=== PATIENT | female | born 1965 | race Caucasian/White ===

== ENCOUNTER 2017-10-30 08:24 | Day surgery (SDC) | payer OTHER ==
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
[~2017-10-30] VITALS: Ht 158.1 cm; Wt 88.5 kg
[2017-10-30] VITALS (8 sets, daily range): BP systolic 106–128; BP diastolic 58–86; PULSE 71–83; TEMP 36.6–37.2; O2SAT 91–98; Ht 158.1 cm; Wt 88.5 kg
[~2017-10-30 08:24] MED LIST: ADVIN50/60 INH; ALBINS/ INH; ALBU1AER9 INH; CITA20TA9 PO; CLC100X PO; CYCLOBENZAPINE PO; DIPH-437 PO; FAMO20TA11 PO; FOLI1TAB8 PO; GABA100C13 PO; GEMF600T PO; HYDR1CAP85 PO; HYDR1TAB2 PO; IBUP-1277 PO; LITH600C PO; MELA1CAP9 PO; MONT1TAB3 PO; MULTTAB58 PO; OXCA300T4 PO; OXGN; PANT1TAB3 PO; POLY335025 PO; PRAZ1CAP10 PO; PRLSR20 PO; RANI300T PO; TIOTCAP INH; TPM/50 PO; TRAZ-119 PO; ZINC1CAP PO
--- NOTE | 2017-10-30 09:20 | Pre Sedation Assessment ---
Pre Sedation Assessment General Date of Sedation: Oct 30, 2017. Review Cardiovascular: regular rate, rhythm, no edema, no gallop, no JVD, no murmur, normal peripheral pulses Lungs: chest non-tender, lungs clear, normal breath sounds, no respiratory distress, no accessory muscle use Pre-Sedation Airway Assessment Smoking Status: Never Smoker Hx of Sleep Apnea: No Hx of difficult intubation: No Short Thick Neck: Yes Thyro-mental Distance: < or =3 Finger Breadths Oral Cavity: WNL Mallampati Classification: Class II ASA Classification: Class II Procedure Planning Contraindications for Sedation: None Current Medications Reviewed: Yes Notes The planned sedation has been discussed with the patient. Informed Consent was obtained. I have identified the patient, determined the appropriateness of sedation and have assessed the patient immediately prior to the procedure. All medicine(s) and interventions are by my order.
--- NOTE | 2017-10-30 09:20 | History & Physical Bridge Note ---
H&P Re-Evaluation Bridge Note: I have examined the patient, reviewed the History & Physical and in the interval since the performance of the History & Physical I have noted the following changes of clinical significance: No changes noted
--- NOTE | 2017-10-30 11:03 | Bronchoscopy Procedure Note ---
Bronchoscopy Procedure Note Procedure: Bronchoscopy, conscious sedation, bronchial lavage right middle lobe Consent: Obtained through the patient placed into the chart Pre-procedural diagnosis: Chronic hypoxemia Post-procedural diagnosis: Chronic hypoxemia Start time: 1030 End time: 1045 Total time: 15 minutes Analgesia: 2% liquid lidocaine: Via nebulizer 4% gel lidocaine: Via right naris 2% liquid lidocaine: Via bronchoscopy Sedation: Versed IV: 4 mg Fentanyl IV: 75 g Procedure: The [employer] video bronchoscope was used for this procedure and passed down through the right naris Right naris: Nasal polyp Posterior naris/posterior oropharynx: Anatomically within normal limits Glottis: Anatomically within normal limits Vocal cords: Proper abduction and abduction, anatomically within normal limits Subglottis: Anatomically within normal limits Trachea: Approximately 6 cm below the true vocal cords there was pretracheal lymph fracture which showed no signs of malacia consistent with her previous tracheostomy Karolina: Anatomically within normal limits Right bronchial tree: Right mainstem bronchus: Anatomically within normal limits Right upper lobe: Anatomically within normal limits Bronchus intermedius: Anatomically within normal limits Right middle lobe: Anatomically within normal limits Right lower lobe: Anatomically within normal limits Findings: No significant findings noted Left bronchial tree: Left mainstem bronchus: Anatomically within normal limits Left upper lobe: Anatomically within normal limits Lingula: Anatomically within normal limits Left lower lobe: Anatomically within normal limits Findings: No significant findings noted Bronchial alveolar lavage: Right middle EBL: None Complications: Wheezing Follow-up: ASU
--- NOTE | 2017-10-30 11:04 | Post Sedation Assessment ---
Post Sedation Assessment General Date of Sedation Oct 30, 2017. Vital Signs: Vital Signs Past 12 Hours Date Time Temp Pulse Resp B/P (MAP) Pulse Ox O2 Delivery O2 Flow Rate FiO2 10/30/17 08:30 36.7 79 20 128/86 (100) 95 Nasal Cannula Post Procedure Recovery Score Activity: (2) Moves 4 extremities * Respiration: (2) Deep breath/cough Circulation: (2) +/-20% PreAnes Value Consciousness: (2) Fully Awake Oxygen Saturation: (1) O2 needed for >90% Post Anesthesia Score: 9 Discharge Sedation Level of Care: Fast Track Phase II Post Sedation Plan On clinical assessment, the patient appears to have tolerated the sedation without complications. Patient is recovering as anticipated. Patient will continue to be monitored by nursing and may be discharged when sedation discharge criteria are met per below protocol. Upon Completions of procedure and additional 15 minutes continue every 5 minute vital signs and the P.A.R. score; then discharge to a Phase I or Fast Track to Phase II per the following guidelines: * Discharge Patient to appropriate Phase II area if PAR is 8 or greater or return to pre- procedure baseline. The post - procedure orders will be as directed. * If PAR score is less than 8 or not return to pre-procedure baseline then patient will follow Phase I monitoring till PAR is reached for Phase II. The Phase I may be done in procedure room or may call to secure a Phase I area. * If naloxone or flumazenil are used for reversal, hold in Phase I for an additional 60 -120 minutes before discharge to Phase II. Please call the Sedation Physician to re-evaluate and complete post-note for discharge to Phase II area. Do NOT discharge from procedure sedation or Phase 1 until post- sedation evaluation note is complete by procedure /sedation MD Sedation Discharge Instructions to be given to the patient at discharge to home.
[2017-10-30] MEDS ORDERED: LIDOCAINE HCL 2% LOCAL 50ML VIAL INSTIL ONE (11:05)
[2017-10-30] MEDS ORDERED: LIDOCAINE VISCOUS 2% 100ML TOP ONE (11:05)
[2017-10-30] MEDS ORDERED: FENTANYL CITRATE INJ 50 MCG/1 ML 2 ML VIAL IV ONE (11:05)
[2017-10-30] MEDS ORDERED: MIDAZOLAM HCL 5 MG/ML 1 ML VIAL IV ONE (11:05)
[2017-10-30] MEDS ORDERED: LIDOCAINE 4% INH SOLN 4 ML BTL TOP ONE (11:05)
--- NOTE | 2017-10-30 11:05 | Discharge Instructions ---
Discharge Instructions Date of Service Oct 30, 2017. Admission Reason for Admission: Asthma, Copd, Pulmonary Fibrosis Discharge Discharge Diagnosis / Problem: Asthma with chronic hypoxemia Discharge Goals Goal(s): Diagnostic testing Activity Recommendations Activity Limitations: resume your previous activity . Instructions / Follow-Up Instructions / Follow-Up Patient is to follow-up with the [facility] division Current Hospital Diet Patient's current hospital diet: Discharge Diet Recommended Diet: Regular Diet Procedures Procedures Performed: bronchoscopy, conscious sedation, bronchial lavage Pending Studies Studies pending at discharge: no Medical Emergencies . Who to Call and When: Medical Emergencies: If at any time you feel your situation is an emergency, please call 911 immediately. . Non-Emergent Contact Non-Emergency issues call your: Spoilage Worker . . "Provider Documentation" section prepared by Jonathan Rocha. . VTE Core Measure Inpt VTE Proph given/why not?: Treatment not indicated
[2017-10-30] MEDS ORDERED: ALBUT/IPRATROP 3MG/0.5MG NEB 3 ML VIAL INH ONE (11:09)
== END 2017-10-30 14:00 | disposition home or self-care (01) ==
LOC: C.ACU 08:24
PROVIDERS: ATTEND Internal Medicine Critical Care Medicine
DX: R09.02 Hypoxemia (principal); Z99.81 Dependence on supplemental oxygen; J44.9 Chronic obstructive pulmonary disease, unspecified; J45.909 Unspecified asthma, uncomplicated; G61.0 Guillain-Barre syndrome; Z86.718 Personal history of other venous thrombosis and embolism; Z87.898 Personal history of other specified conditions; Z79.899 Other long term (current) drug therapy; Z98.890 Other specified postprocedural states; Z88.1 Allergy status to other antibiotic agents; Z88.7 Allergy status to serum and vaccine; Z81.8 Family history of other mental and behavioral disorders; Z82.49 Family history of ischemic heart disease and other diseases of the circulatory system

== ENCOUNTER 2019-10-10 22:15 | Observation (INO) ==
[2019-10-10] MEDS ORDERED: SODIUM CHLORIDE 0.9% 1000ML 1,000 ML IV ONE (22:29)
[2019-10-10] MEDS ORDERED: methylPREDNISolone 125 MG/2 ML VIAL IV STA (22:29)
[2019-10-10] MEDS ORDERED: ALBUT/IPRATROP 3MG/0.5MG NEB 3 ML VIAL NEB ONE (22:29)
--- NOTE | 2019-10-10 22:43 | XRay Report ---
XR chest 1V portable CLINICAL HISTORY: Chest Pain pain COMPARISON STUDY: 05/06/2014 FINDINGS: Mild cardiac enlargement. Prominent pulmonary vasculature. Diaphragms are smooth. IMPRESSION: Congestive heart failure ACT 112: Negative or not required by law. The above report was generated using voice recognition software. It may contain grammatical, syntax or spelling errors. Electronically signed by: Bebeto Layton M.D. 10/10/2019 10:41 PM
[2019-10-10 22:58] LABS: Basophils # (auto) 0.02 K/uL (0-0.2); Basophils % (auto) 0.2 %; Eosinophils # (auto) 0.01 K/uL (0-0.5); Eosinophils % (auto) 0.1 %; Hematocrit (blood only) 48.7 % (37-47); Hemoglobin 17.3 g/dL (12.0-16.0); Immature Granulocytes # (auto) 0.03 K/uL (0.00-0.02); Immature Granulocytes % (auto) 0.3 %; Lymphocytes # (auto) 4.58 K/uL (1.2-3.4); Lymphocytes % (auto) 40.9 %; Mean Corpuscular Hemoglobin 33.6 pg (25-34); Mean Corpuscular Hgb Conc 35.5 g/dL (32-36); Mean Corpuscular Volume 94.6 fL (80-100); Mean Platelet Volume 10.9 fL (7.4-10.4); Monocytes # (auto) 0.89 K/uL (0.11-0.59); Monocytes % (auto) 7.9 %; Neutrophils # (auto) 5.68 K/uL (1.4-6.5); Neutrophils % (auto) 50.6 %; Platelet Count 225 K/uL (130-400); RDW Coefficient of Variation 12.8 % (11.5-14.5); RDW Standard Deviation 43.9 fL (36.4-46.3); Red Blood Count 5.15 M/uL (4.2-5.4); White Blood Count 11.21 K/uL (4.8-10.8)
[2019-10-10 22:59] LABS: Base Excess VBG 3.2 mEq/L; HCO3 VBG 29 mmol/L; PCO2 VBG 48 mmHg (38-50); PO2 VBG 29 mmHg
[2019-10-10 23:08] LABS: Oxygen Saturation VBG < 60.0 %
[2019-10-10 23:16] LABS: Alanine Aminotransferase 73 U/L (12-78); Albumin Level 4.2 gm/dl (3.4-5.0); Blood Urea Nitrogen 22 mg/dl (7-18); Calcium 9.2 mg/dl (8.5-10.1); Carbon Dioxide 25 mmol/L (21-32); Chloride 102 mmol/L (98-107); Est GFR (Non-African American) 72.5; Glucose 182 mg/dl (70-99); Lipase 96 U/L (73-393); Sodium 138 mmol/L (136-145)
[2019-10-10 23:22] LABS: Albumin Globulin Ratio 1.1 (0.9-2); Alkaline Phosphatase 107 U/L (45-117); Bilirubin,Total 0.5 mg/dl (0.2-1); Globulin 3.7 gm/dl (2.5-4.0); Phosphorus 2.4 mg/dl (2.5-4.9); Potassium 3.8 mmol/L (3.5-5.1); Total Protein 7.9 gm/dl (6.4-8.2); Troponin I < 0.015 ng/ml (0-0.045)
[2019-10-10 23:25] LABS: Aspartate Aminotransferase 26 U/L (15-37); Magnesium 2.5 mg/dl (1.8-2.4)
[2019-10-10 23:28] LABS: Influenza A virus by PCR Neg for Influ A (Neg); Influenza B virus by PCR Neg for Influ B (Neg)
[2019-10-10] MEDS ORDERED: AZITHROMYCIN 500 MG in DEXTROSE 5% 250 ML IV ONE (23:49)
[2019-10-10] MEDS ORDERED: cefTRIAXone SODIUM 2,000 MG/70 ML BAG IV STA (23:49)
[2019-10-11 00:29] LABS: NT Pro B Type Natriuretic Pept 53 pg/ml (0-900)
--- NOTE | 2019-10-11 01:40 | Emergency Department Note ---
Entered by Alpesh Constantino acting as a scribe for History of Present Illness General Chief complaint: Shortness of Breath/Dyspnea Stated complaint: SOB Time Seen by Provider: 10/10/19 22:26 Source: patient History of Present Illness Onset (ago): day(s) 5 Location: chest Pain Consistency: + other (worsening) Maximum Pain Intensity: 4 Quality: + other (SOB) Associated symptoms: + other (Positive for CP, a cough, nausea, and vomiting. Negative for fever and diarrhea.) The patient is a 54 year old female who presents to the emergency department with complaints of worsening SOB beginning five days ago. The patient states that she has a history of asthma and COPD. She notes that she has been SOB for the last five days, but she reports that her SOB has been worsening. She also complains of CP, a cough, nausea, and vomiting, but she denies any fever and d iarrhea. The patient states that she wears 2L of oxygen at all times. She notes that she took a nebulizer treatment at home. She reports that she has been on Augmentin and Prednisone for the last two days. Home Medications Home Medications Medication Instructions Recorded Confirmed Type albuterol sulfate 2.5 mg INHALATION QID PRN 07/05/18 10/10/19 History fluticasone furoate-vilanterol 1 inh INHALATION DAILY 07/05/18 10/10/19 History [Breo Ellipta] gabapentin 300 mg PO BID 07/05/18 10/10/19 History melatonin 10 mg PO HS PRN 07/05/18 10/10/19 History pantoprazole [Protonix] 40 mg PO BID 07/05/18 10/10/19 History polyethylene glycol 3350 17 g PO DAILY 07/05/18 10/10/19 History albuterol sulfate 90 mcg/actuation See Rx Instructions .ROUTE 07/15/19 10/10/19 Rx aerosol inhaler .COMPLEX #54 gram losartan 100 mg tablet 100 mg PO DAILY #90 tab 07/29/19 10/10/19 Rx montelukast 10 mg tablet 10 mg PO DAILY #30 tab 08/03/19 10/10/19 Rx cyclobenzaprine 10 mg tablet 10 mg PO TID PRN #90 tab 08/22/19 10/10/19 Rx famotidine 20 mg tablet 20 mg PO DAILY #90 tab 08/23/19 10/10/19 Rx trazodone 100 mg tablet 200 mg PO HS #180 tab 08/23/19 10/10/19 Rx ropinirole 1 mg tablet 1 mg PO DAILY #60 tab 09/09/19 10/10/19 Rx hydrocodone 5 mg-acetaminophen 325 1 tab PO Q8H PRN #60 tab 09/21/19 10/10/19 Rx mg tablet multivitamin-ferrous 1 tab PO DAILY 09/21/19 10/10/19 History fumarate-folic acid 18 mg-400 mcg tablet psyllium husk 0.52 gram capsule 2.6 gm PO DAILY cap 09/21/19 10/10/19 History linaclotide 290 mcg capsule 290 mcg PO DAILY #30 cap 09/26/19 10/10/19 Rx diclofenac sodium 1 % topical gel 2 gm TOP QID #100 gm 09/28/19 10/10/19 Rx meloxicam 15 mg tablet 15 mg PO DAILY #30 tab 09/28/19 10/10/19 Rx prednisone 10 mg PO DIRECTED 10/10/19 10/10/19 History Allergies Allergy/AdvReac Type Severity Reaction Status Date / Time red dye Allergy Intermediate RED FOOD Verified 09/21/19 13:27 DYE CAUSES SEVERE ASTHMA ATTACK yellow dye Allergy Intermediate YELLOW Verified 09/21/19 13:27 FOOD DYE CAUSES SEVERE ASTHMA ATTACK diphtheria toxoid,fluid Allergy Mild Verified 09/21/19 13:27 tetanus toxoid, adsorbed Allergy Mild Verified 09/21/19 13:27 mold Allergy Unknown ASTHMA Verified 09/21/19 13:27 ATTACK Dust Allergy Unknown ASTHMA Uncoded 09/21/19 13:27 ATTACK Past Med/Surg History Medical History Aggressive behavior (Resolved) Alcohol intoxication (Resolved) Anxiety (Chronic) Asthma with exacerbation (Chronic) 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) Bronchitis (Resolved) Contusion of face (Resolved 04/27/11) COPD (chronic obstructive pulmonary disease) Depression (Chronic) Foot contusion (Resolved) Gastroenteritis (Resolved) Mood disorder (Chronic) Family History Other No significant family history Social History Preferred Language: Kiswahili Communication Ability: Effective 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 and A total of 10 systems reviewed and were otherwise negative Physical Exam Vital Signs Vital Signs - 24 hr 10/10/19 22:21 10/10/19 22:34 10/10/19 22:52 Temperature 36.8 C Temperature Source Oral Pulse Rate 128 H Pulse Rate [Bilateral Apical] 110 H Pulse Rate [Finger] 111 H Pulse Rhythm Regular Pulse Strength Normal Respiratory Rate 24 26 H Respiratory Effort / Characteristics Non-Labored Spontaneous Respiratory Depth Normal Respiratory Pattern Regular Blood Pressure 128/88 Blood Pressure [Right Arm] 139/91 Blood Pressure Mean 101 Blood Pressure Mean [Right Arm] 107 Blood Pressure Position Sitting Pulse Oximetry 93 100 Oxygen Delivery Method Nasal Cannula Nasal Cannula Nebulizer Oxygen Flow Rate 2 2 Sepsis Recent Fever Within 48 Hours No Sepsis Action Taken by Nursing No Action Required 10/10/19 23:29 10/11/19 00:28 Temperature Temperature Source Pulse Rate Pulse Rate [Bilateral Apical] 119 H 131 H Pulse Rate [Finger] 132 H Pulse Rhythm Pulse Strength Respiratory Rate 24 22 Respiratory Effort / Characteristics Respiratory Depth Respiratory Pattern Blood Pressure Blood Pressure [Right Arm] 145/94 H 111/72 Blood Pressure Mean Blood Pressure Mean [Right Arm] 111 85 Blood Pressure Position Pulse Oximetry 99 97 Oxygen Delivery Method Nebulizer Oxygen Flow Rate Sepsis Recent Fever Within 48 Hours Sepsis Action Taken by Nursing GENERAL: Awake, alert, ill-appearing, in moderate respiratory distress HENT: Normocephalic, atraumatic. Oropharynx with dry mucous membranes and otherwise unremarkable. EYES: Normal conjunctiva. Sclera non-icteric. NECK: Supple. No nuchal rigidity. FROM. No JVD. RESPIRATORY: Moderate respiratory distress, diffuse wheezes with prolonged expiratory phase. Accessory muscle use. CARDIAC: Tachycardic, normal rhythm. Extremities warm and well perfused. Pulses equal. ABDOMEN: Soft, non-distended. No tenderness to palpation. No rebound or guarding. No masses. RECTAL: Deferred. MUSCULOSKELETAL: Chest examination reveals no tenderness. The back is symmetrical on inspection without obvious abnormality. There is no CVA tenderness to palpation. No joint edema. LOWER EXTREMITIES: Calves are equal size bilaterally and non-tender. No edema. No discoloration. NEURO: Normal sensorium. No sensory or motor deficits noted. SKIN: No rash or jaundice noted. Course Course 2228: The patient was evaluated in room B12. A complete history and physical exam was performed. 0021: Upon reevaluation, the patient is stable. I discussed the findings and the treatment plan with the patient. She expresses agreement and understanding. I spoke with Dr. Ramirez of the [facility]. The patient will be evaluated for further management. 0050: I performed a bedside US on the patient. The US showed no pericardial effusion and no gross reduction in EF. Consultations Consultation #1: I reviewed the patient's case with Dr. Ramirez - Hospital[place], [facility]. He will evaluate the patient for further management. Time: 00:21 Administered Medications Albuterol (Duoneb) 12 ml NEB ONE ONE Stop: 10/10/19 22:30 Last Admin: 10/10/19 22:50 Dose: 12 ml Documented by: [id number] Albuterol (Duoneb) 3 ml NEB Q6R EN Stop: 11/10/19 02:06 Last Admin: 10/11/19 03:01 Dose: Not Given Documented by: [id number] Sodium Chloride (Nss 1000ml) 1,000 mls @ 999 mls/hr IV .Q1H1M ONE Stop: 10/10/19 23:29 Last Infusion: 10/11/19 00:16 Dose: 0 mls/hr Documented by: [id number] Admin: 10/10/19 22:46 Dose: 999 mls/hr Documented by: [id number] Ceftriaxone Sodium (Rocephin) 2,000 mg in 70 mls @ 140 mls/hr IV NOW STA Stop: 10/11/19 00:18 Last Infusion: 10/11/19 00:18 Dose: 0 mls/hr Documented by: [id number] Admin: 10/11/19 00:16 Dose: 140 mls/hr Documented by: [id number] Azithromycin 500 mg/ Dextrose 255 mls @ 125 mls/hr IV ONE ONE Stop: 10/11/19 01:51 Last Infusion: 10/11/19 02:43 Dose: 0 mls/hr Documented by: [id number] Admin: 10/11/19 00:26 Dose: 125 mls/hr Documented by: [id number] Methylprednisolone (Solumedrol) 125 mg IV NOW STA Stop: 10/10/19 22:30 Last Admin: 10/10/19 22:46 Dose: 125 mg Documented by: [id number] Morphine Sulfate (Morphine Sulfate) 2 mg IV Q3H PRN PRN Reason: Severe Pain Stop: 10/25/19 02:06 Last Admin: 10/11/19 03:01 Dose: 2 mg Documented by: [id number] Critical Care Time Critical Care Time: Yes Total Critical Care Time: 35 I have personally spent greater than 35 minutes of critical care time in the direct management of this patient. This includes bedside care, interpretation of diagnostic studies, and testing, discussion with consultants, patient, and family members, and other required patient management activities. This 35 minutes is in excess of all separately billable procedures. Medical Decision Making Differential Diagnosis Differential diagnosis: Etiologies such as infections, reactive airway disease, COPD, pneumonia, pleural effusion, pulmonary edema, ARDS, pneumothorax, CHF, cardiac ischemia, cardiac tamponade, dysrhythmia, anemia, pulmonary embolism, musculoskeletal, gastrointestinal process, as well as others were entertained. Medical Records Attestation: I reviewed the patient's medical records. Home Medications Current Medication List: was personally reviewed by me Laboratory Data Attestation: I reviewed the patient's lab results. Result diagrams: 10/10/19 22:44 10/10/19 22:44 Lab Results 10/10/19 10/10/19 10/10/19 Range/Units 22:40 22:44 22:44 WBC 11.21 H (4.8-10.8) K/uL RBC 5.15 (4.2-5.4) M/uL Hgb 17.3 H (12.0-16.0) g/dL Hct 48.7 H (37-47) % MCV 94.6 (80-100) fL MCH 33.6 (25-34) pg MCHC 35.5 (32-36) g/dL RDW Std Deviation 43.9 (36.4-46.3) fL RDW Coeff of Joyce 12.8 (11.5-14.5) % Plt Count 225 (130-400) K/uL MPV 10.9 H (7.4-10.4) fL Immature Gran % (Auto) 0.3 % Neut % (Auto) 50.6 % Lymph % (Auto) 40.9 % Elliott % (Auto) 7.9 % Eos % (Auto) 0.1 % Baso % (Auto) 0.2 % Immature Gran # (Auto) 0.03 H (0.00-0.02) K/uL Neut # (Auto) 5.68 (1.4-6.5) K/uL Lymph # (Auto) 4.58 H (1.2-3.4) K/uL Elliott # (Auto) 0.89 H (0.11-0.59) K/uL Eos # (Auto) 0.01 (0-0.5) K/uL Baso # (Auto) 0.02 (0-0.2) K/uL VBG pH (7.36-7.41) VBG pCO2 (38-50) mmHg VBG pO2 mmHg VBG HCO3 mmol/L VBG O2 Saturation % VBG Base Excess mEq/L Barometric Pressure mm/Hg Sodium 138 (136-145) mmol/L Potassium 3.8 (3.5-5.1) mmol/L Chloride 102 (98-107) mmol/L Carbon Dioxide 25 (21-32) mmol/L Anion Gap 11.0 (3-11) BUN 22 H (7-18) mg/dl Creatinine 0.90 (0.6-1.2) mg/dl Est Cr Clr Drug Dosing Not Reportable Est GFR ( Amer) 84.0 Est GFR (Non-Af Amer) 72.5 BUN/Creatinine Ratio 24.0 H (10-20) Glucose 182 H (70-99) mg/dl Lactate (0.4-2.0) mmol/L Calcium 9.2 (8.5-10.1) mg/dl Phosphorus 2.4 L (2.5-4.9) mg/dl Magnesium 2.5 H (1.8-2.4) mg/dl Total Bilirubin 0.5 (0.2-1) mg/dl AST 26 (15-37) U/L ALT 73 (12-78) U/L Alkaline Phosphatase 107 (45-117) U/L Troponin I < 0.015 (0-0.045) ng/ml NT-Pro-B Natriuret Pep 53 (0-900) pg/ml Total Protein 7.9 (6.4-8.2) gm/dl Albumin 4.2 (3.4-5.0) gm/dl Globulin 3.7 (2.5-4.0) gm/dl Albumin/Globulin Ratio 1.1 (0.9-2) Lipase 96 (73-393) U/L Influenza Type A (PCR) Neg for Influ A (Neg) Influenza Type B (PCR) Neg for Influ B (Neg) 10/10/19 10/10/19 Range/Units 22:50 23:59 WBC (4.8-10.8) K/uL RBC (4.2-5.4) M/uL Hgb (12.0-16.0) g/dL Hct (37-47) % MCV (80-100) fL MCH (25-34) pg MCHC (32-36) g/dL RDW Std Deviation (36.4-46.3) fL RDW Coeff of Joyce (11.5-14.5) % Plt Count (130-400) K/uL MPV (7.4-10.4) fL Immature Gran % (Auto) % Neut % (Auto) % Lymph % (Auto) % Elliott % (Auto) % Eos % (Auto) % Baso % (Auto) % Immature Gran # (Auto) (0.00-0.02) K/uL Neut # (Auto) (1.4-6.5) K/uL Lymph # (Auto) (1.2-3.4) K/uL Elliott # (Auto) (0.11-0.59) K/uL Eos # (Auto) (0-0.5) K/uL Baso # (Auto) (0-0.2) K/uL VBG pH 7.40 (7.36-7.41) VBG pCO2 48 (38-50) mmHg VBG pO2 29 mmHg VBG HCO3 29 mmol/L VBG O2 Saturation < 60.0 % VBG Base Excess 3.2 mEq/L Barometric Pressure 727.1 mm/Hg Sodium (136-145) mmol/L Potassium (3.5-5.1) mmol/L Chloride (98-107) mmol/L Carbon Dioxide (21-32) mmol/L Anion Gap (3-11) BUN (7-18) mg/dl Creatinine (0.6-1.2) mg/dl Est Cr Clr Drug Dosing Est GFR ( Amer) Est GFR (Non-Af Amer) BUN/Creatinine Ratio (10-20) Glucose (70-99) mg/dl Lactate 3.7 H* (0.4-2.0) mmol/L Calcium (8.5-10.1) mg/dl Phosphorus (2.5-4.9) mg/dl Magnesium (1.8-2.4) mg/dl Total Bilirubin (0.2-1) mg/dl AST (15-37) U/L ALT (12-78) U/L Alkaline Phosphatase (45-117) U/L Troponin I (0-0.045) ng/ml NT-Pro-B Natriuret Pep (0-900) pg/ml Total Protein (6.4-8.2) gm/dl Albumin (3.4-5.0) gm/dl Globulin (2.5-4.0) gm/dl Albumin/Globulin Ratio (0.9-2) Lipase (73-393) U/L Influenza Type A (PCR) (Neg) Influenza Type B (PCR) (Neg) Imaging Data Radiologist's Impression: Radiology results as stated below per my review and the radiologist's interpretation: XR chest 1V portable FINDINGS: Mild cardiac enlargement. Prominent pulmonary vasculature. Diaphragms are smooth. IMPRESSION: Congestive heart failure ACT 112: Negative or not required by law. The above report was generated using voice recognition software. It may contain grammatical, syntax or spelling errors. Electronically signed by: Bebeto Layton M.D. 10/10/2019 10:41 PM ECG Data Attestation: I personally reviewed and interpreted this ECG as follows: Indication: + SOB/dyspnea Rate (beats per minute): 111 Rhythm: + sinus tachycardia ECG ST segments: no ST depression and no ST elevation ECG Findings: no PACs and no PVCs Additional Comments: QTC 454, QRS 78. Blood Pressure Blood Pressure Findings: Elevated blood pressure Blood Pressure Disposition: further management by hospitalist MDM Narrative The patient is a pleasant 54-year-old woman with a past medical history of COPD on 2 L home O2 who presents emergency department with worsening cough congestion shortness of breath over the past 5 days treated outpatient with a course of Augmentin and prednisone but without any improvement per HPI. On arrival the patient is in moderate respiratory distress with increased work of breathing with accessory muscle use and only able to speak 1 or 2 words at a time between breaths. Patient reports she had been in this degree of distress approximately 5 hours prior to arrival. Patient treated immediately with hour-long continuous duoneb and solumedrol. EKG without overt acute ischemia. Chest x-ray with interpretation of prominent pulmonary vasculature however given the patient overall appears clinically dry in the setting of her recent URI symptoms suspici ous for component of multifocal pneumonia. WBC 11.2. H/H 17.3/48.7 suggestive of a component of hemoconcentration given increased from prior value. Platelets within normal limits. VBG unremarkable. Chemistry without acidosis. However lactate elevated at 3.7. BUN/creatinine> 20 consistent with the patient's clinically dry appearance. Troponin negative/undetectable. BNP within normal limits. Flu negative. Blood cultures were drawn and patient was treated with initial antibiotics of ceftriaxone and azithromycin. Upon completion of initial treatment, the patient's respiratory status was improved with resolution of her labored breathing and she was able to speak full sentences without difficulty. Limited bedside cardiac ultrasound was performed and demonstrated no pericardial effusion and no gross reduction in EF. Case was discussed with Dr. Ramirez, [facility] [place], who evaluate the patient for admission. Impression & Plan Acute and chronic respiratory failure with hypoxia, COPD exacerbation, Bilateral pneumonia, Elevated lactic acid level Discharge Plan Visit Data *Final* Discharge Date/Time: 10/11/19 01:28 Chief Complaint: Shortness of Breath/Dyspnea Stated Complaint: SOB ED Provider: Isai Sam Discharge Problem: Acute and chronic respiratory failure with hypoxia, COPD exacerbation, Bilateral pneumonia, Elevated lactic acid level Patient Disposition: Admitted As Inpatient Discharge Instructions Interventions: ED Discharge Assessment Last Done: 10/11/19 01:28 Discharge Problem: Bilateral pneumonia Qualifiers: Pneumonia type: due to unspecified organism Lung location: unspecified part of lung Qualified Code(s): J18.9 - Pneumonia, unspecified organism The scribe's documentation has been prepared under my direction and personally reviewed by me in its entirety. I confirm that the note above accurately reflects all work, treatment, procedures, and medical decision making performed by me.
[2019-10-11] MEDS ORDERED: HYDROCODONE/ACETAMOPHEN 5/325MG TAB PO PRN (02:07)
[2019-10-11] MEDS ORDERED: ALBUTEROL 0.083% NEBU SOLN 3 ML VIAL NEB PRN (02:07)
[2019-10-11] MEDS ORDERED: ONDANSETRON INJ 2 MG/ML 2 ML VIAL IV PRN (02:07)
[2019-10-11] MEDS ORDERED: ACETAMINOPHEN 325 MG TAB PO PRN (02:07)
[2019-10-11] MEDS: MoRPHine SULFATE 2 MG/ML CARP IV PRN ×2 (03:01→22:13)
[2019-10-11] MEDS: ALBUT/IPRATROP 3MG/0.5MG NEB 3 ML VIAL NEB SCH ×3 (03:01→13:15)
--- NOTE | 2019-10-11 05:14 | History & Physical Report ---
Date of Service October 11, 2019 Assessment & Plan (1) Acute and chronic respiratory failure with hypoxia: Obs tele Supplemental oxygen (2) COPD exacerbation: IV Rocephin and Zithromax to cover common offenders. IV Solumedrol 125mg given in ED. Continue with 40mg IV Q 6 hours. Duo nebs Q 6 hours while awake Albuterol nebs Q 4 hours prn. Continue Breo Ellipta (3) Asthma with exacerbation: See for COPD exac. Continue montelukast (4) Mood disorder: Continue Trazodone History of Present Illness 54 y/o female presented to the ED with a 5 day history of increasing SOB. She was placed on Augmentin and prednisone for the previous 2 days, but continued to worsen. She reports having COPD and Asthma. No F/C or diarrhea. + non- productive cough, chest pain with coughing, and N/V. She uses oxygen at 2L chronically. Primary Care Provider: Tyrell Mancini MD Allergies Allergy/AdvReac Type Severity Reaction Status Date / Time red dye Allergy Intermediate RED FOOD Verified 09/21/19 13:27 DYE CAUSES SEVERE ASTHMA ATTACK yellow dye Allergy Intermediate YELLOW Verified 09/21/19 13:27 FOOD DYE CAUSES SEVERE ASTHMA ATTACK diphtheria toxoid,fluid Allergy Mild Verified 09/21/19 13:27 tetanus toxoid, adsorbed Allergy Mild Verified 09/21/19 13:27 mold Allergy Unknown ASTHMA Verified 09/21/19 13:27 ATTACK Dust Allergy Unknown ASTHMA Uncoded 09/21/19 13:27 ATTACK Home Medications Home Medications Medication Instructions Recorded Confirmed Type albuterol sulfate 2.5 mg INHALATION QID PRN 07/05/18 10/10/19 History fluticasone furoate-vilanterol 1 inh INHALATION DAILY 07/05/18 10/10/19 History [Breo Ellipta] gabapentin 300 mg PO BID 07/05/18 10/10/19 History melatonin 10 mg PO HS PRN 07/05/18 10/10/19 History pantoprazole [Protonix] 40 mg PO BID 07/05/18 10/10/19 History polyethylene glycol 3350 17 g PO DAILY 07/05/18 10/10/19 History albuterol sulfate 90 mcg/actuation See Rx Instructions .ROUTE 07/15/19 10/10/19 Rx aerosol inhaler .COMPLEX #54 gram losartan 100 mg tablet 100 mg PO DAILY #90 tab 07/29/19 10/10/19 Rx montelukast 10 mg tablet 10 mg PO DAILY #30 tab 08/03/19 10/10/19 Rx cyclobenzaprine 10 mg tablet 10 mg PO TID PRN #90 tab 08/22/19 10/10/19 Rx famotidine 20 mg tablet 20 mg PO DAILY #90 tab 08/23/19 10/10/19 Rx trazodone 100 mg tablet 200 mg PO HS #180 tab 08/23/19 10/10/19 Rx ropinirole 1 mg tablet 1 mg PO DAILY #60 tab 09/09/19 10/10/19 Rx hydrocodone 5 mg-acetaminophen 325 1 tab PO Q8H PRN #60 tab 09/21/19 10/10/19 Rx mg tablet multivitamin-ferrous 1 tab PO DAILY 09/21/19 10/10/19 History fumarate-folic acid 18 mg-400 mcg tablet psyllium husk 0.52 gram capsule 2.6 gm PO DAILY cap 09/21/19 10/10/19 History linaclotide 290 mcg capsule 290 mcg PO DAILY #30 cap 09/26/19 10/10/19 Rx diclofenac sodium 1 % topical gel 2 gm TOP QID #100 gm 09/28/19 10/10/19 Rx meloxicam 15 mg tablet 15 mg PO DAILY #30 tab 09/28/19 10/10/19 Rx prednisone 10 mg PO DIRECTED 10/10/19 10/10/19 History Past Med/Surg History Medical History Aggressive behavior (Resolved) Alcohol intoxication (Resolved) Anxiety (Chronic) Asthma with exacerbation (Chronic) 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) Bronchitis (Resolved) Contusion of face (Resolved 04/27/11) COPD (chronic obstructive pulmonary disease) Depression (Chronic) Foot contusion (Resolved) Gastroenteritis (Resolved) Mood disorder (Chronic) Family History Other No significant family history Social History Preferred Language: Croatian Communication Ability: Effective Curtain Hemmer Automatic Required: No Beliefs That Will Affect Care: None marital status: Single Current Living Situation: Alone Other Information That Helps Us Care for You: No Feels Safe at Home: Yes Safety Concerns: Afraid for Self Smoking Status: Never smoker Do You Dip or Chew Tobacco: No ; Second Hand Exposure: No ; Tobacco Cessation Education Requested by Patient: No Hx Alcohol Use: Yes Alcohol type: wine Hx Substance Use: No Review of Systems Review of Systems: All systems reviewed & are unremarkable except as noted in HPI & below Physical Exam Physical Exam: General- adult female in mild distress from SOB. Head- atraumatic Eyes- PERRL, EOMI, anicteric ENT- oropharynx clear Neck- supple, no JVD, no adenopathy, no thyromegaly. Lungs- + inspiratory and expiratory wheezes b/l. Heart- regular rhythm; no murmur, no gallop, no rub appreciated Abdomen- normal bowel sounds, soft, nontender. 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 Skin- warm & dry Results & Data Vital Signs (Past 12 Hours) Vital Signs Temp Pulse Pulse Pulse Resp BP BP 10/11/19 04:44 116 H 16 10/11/19 01:50 36.9 C 132 H 20 129/81 10/11/19 01:22 127 H 22 113/72 10/11/19 00:28 131 H 132 H 22 111/72 10/10/19 23:29 119 H 24 145/94 H 10/10/19 22:52 110 H 111 H 26 H 139/91 10/10/19 22:21 36.8 C 128 H 24 128/88 Pulse Ox 10/11/19 04:44 97 10/11/19 01:50 94 10/11/19 01:22 94 10/11/19 00:28 97 10/10/19 23:29 99 10/10/19 22:52 100 10/10/19 22:21 93 Laboratory Results Laboratory Results WBC 11.21 K/uL (4.8-10.8) H 10/10/19 22:44 RBC 5.15 M/uL (4.2-5.4) 10/10/19 22:44 Hgb 17.3 g/dL (12.0-16.0) H 10/10/19 22:44 Hct 48.7 % (37-47) H 10/10/19 22:44 MCV 94.6 fL (80-100) 10/10/19 22:44 MCH 33.6 pg (25-34) 10/10/19 22:44 MCHC 35.5 g/dL (32-36) 10/10/19 22:44 RDW Std Deviation 43.9 fL (36.4-46.3) 10/10/19 22:44 RDW Coeff of Joyce 12.8 % (11.5-14.5) 10/10/19 22:44 Plt Count 225 K/uL (130-400) 10/10/19 22:44 MPV 10.9 fL (7.4-10.4) H 10/10/19 22:44 Immature Gran % (Auto) 0.3 % 10/10/19:44 Neut % (Auto) 50.6 % 10/10/19 22:44 Lymph % (Auto) 40.9 % 10/10/19:44 Schleicher % (Auto) 7.9 % 10/10/19:44 Eos % (Auto) 0.1 % 10/10/19:44 Baso % (Auto) 0.2 % 10/10/19:44 Immature Gran # (Auto) 0.03 K/uL (0.00-0.02) H 10/10/19 22:44 Neut # (Auto) 5.68 K/uL (1.4-6.5) 10/10/19:44 Lymph # (Auto) 4.58 K/uL (1.2-3.4) H 10/10/19 22:44 Schleicher # (Auto) 0.89 K/uL (0.11-0.59) H 10/10/19 22:44 Eos # (Auto) 0.01 K/uL (0-0.5) 10/10/19:44 Baso # (Auto) 0.02 K/uL (0-0.2) 10/10/19 22:44 VBG pH 7.40 (7.36-7.41) 10/10/19 22:50 VBG pCO2 48 mmHg (38-50) 10/10/19 22:50 VBG pO2 29 mmHg 10/10/19 22:50 VBG HCO3 29 mmol/L 10/10/19 22:50 VBG O2 Saturation < 60.0 % 10/10/19 22:50 VBG Base Excess 3.2 mEq/L 10/10/19 22:50 Barometric Pressure 727.1 mm/Hg 10/10/19 22:50 Sodium 138 mmol/L (136-145) 10/10/19 22:44 Potassium 3.8 mmol/L (3.5-5.1) 10/10/19 22:44 Chloride 102 mmol/L (98-107) 10/10/19 22:44 Carbon Dioxide 25 mmol/L (21-32) 10/10/19 22:44 Anion Gap 11.0 (3-11) 10/10/19 22:44 BUN 22 mg/dl (7-18) H 10/10/19 22:44 Creatinine 0.90 mg/dl (0.6-1.2) 10/10/19 22:44 Est Cr Clr Drug Dosing Not Reportable 10/10/19 22:44 Est GFR ( Amer) 84.0 10/10/19 22:44 Est GFR (Non-Af Amer) 72.5 10/10/19 22:44 BUN/Creatinine Ratio 24.0 (10-20) H 10/10/19 22:44 Glucose 182 mg/dl (70-99) H 10/10/19 22:44 Lactate 5.9 mmol/L (0.4-2.0) H* 10/11/19 02:09 Calcium 9.2 mg/dl (8.5-10.1) 10/10/19 22:44 Phosphorus 2.4 mg/dl (2.5-4.9) L 10/10/19 22:44 Magnesium 2.5 mg/dl (1.8-2.4) H 10/10/19 22:44 Total Bilirubin 0.5 mg/dl (0.2-1) 10/10/19 22:44 AST 26 U/L (15-37) 10/10/19 22:44 ALT 73 U/L (12-78) 10/10/19 22:44 Alkaline Phosphatase 107 U/L (45-117) 10/10/19 22:44 Troponin I < 0.015 ng/ml (0-0.045) 10/10/19 22:44 NT-Pro-B Natriuret Pep 53 pg/ml (0-900) 10/10/19 22:44 Total Protein 7.9 gm/dl (6.4-8.2) 10/10/19 22:44 Albumin 4.2 gm/dl (3.4-5.0) 10/10/19 22:44 Globulin 3.7 gm/dl (2.5-4.0) 10/10/19 22:44 Albumin/Globulin Ratio 1.1 (0.9-2) 10/10/19 22:44 Lipase 96 U/L (73-393) 10/10/19 22:44 Influenza Type A (PCR) Neg for Influ A (Neg) 10/10/19 22:40 Influenza Type B (PCR) Neg for Influ B (Neg) 10/10/19 22:40 Diagnostic Findings [place], [place] [phone] XRay Report Patient: JACOB PALM LAdmit Date: 10/10/19 MR#: [id number]: [id number] Acct ID:[id number]: Date: 1965[facility] Zip: [place] [address] Age: 54Location: ED Sex: F Room/Bed: Att Phy:Diagnosis: SOB Jamia Phy: Tyrell Mancini, MDService Date: 10/10/19 Fam Phy:Interpreting Phy: Bebeto Layton MD Admit Phy: Ordering Phy: Isai Sam M.D. cc: ~ XR chest 1V portable CLINICAL HISTORY: Chest Pain pain COMPARISON STUDY: 05/06/2014 FINDINGS: Mild cardiac enlargement. Prominent pulmonary vasculature. Diaphragms are smooth. IMPRESSION: Congestive heart failure ACT 112: Negative or not required by law. The above report was generated using voice recognition software. It may contain grammatical, syntax or spelling errors. Electronically signed by: Bebeto Layton M.D. 10/10/2019 10:41 PM Dictated: 10/10/192240 Transcribed: 10/10/192240 Code Status & VTE Plan VTE Prophylaxis Plan VTE Prophylaxis will be ordered: Yes PG Care Time/CCT Total # of Minutes Spent Total Time Spent: 60 Total Time Spent with Patient: Total time spent is greater than 50% in coordination of care (as documented) at patient's floor/unit and/or counseling patient: Coding Level of Care Code 60963 OBS Care - Level 3 Diagnoses Acute and chronic respiratory failure with hypoxia J96.21 COPD exacerbation J44.1 Asthma with exacerbation J45.901 Mood disorder F39
[2019-10-11] MEDS: methylPREDNISolone 40 MG in SYRINGE 0 ML IV SCH ×4 (05:38→22:10)
[2019-10-11 05:47] LABS: Hematocrit (blood only) 42.9 % (37-47); Mean Corpuscular Hemoglobin 33.4 pg (25-34); Mean Corpuscular Volume 95.5 fL (80-100); Mean Platelet Volume 10.6 fL (7.4-10.4); Platelet Count 183 K/uL (130-400); RDW Coefficient of Variation 12.9 % (11.5-14.5); RDW Standard Deviation 44.4 fL (36.4-46.3); Red Blood Count 4.49 M/uL (4.2-5.4); White Blood Count 5.41 K/uL (4.8-10.8)
[2019-10-11 06:24] LABS: BUN Creatinine Ratio 20.8 (10-20); Calcium 8.4 mg/dl (8.5-10.1); Creatinine Clr Calc Pharmacy 66.7 ml/min; Est GFR (African American) 80.8; Est GFR (Non-African American) 69.7; Potassium 4.5 mmol/L (3.5-5.1)
--- NOTE | 2019-10-11 06:52 | CT Scan Report ---
CT chest wo con CT DOSE: 460.59 mGy.cm CLINICAL HISTORY: 54 years-old Female with COPD exac, looking for pneumonia. Acute on chronic shortn ess of breath. Clinical concern for possible pneumonia TECHNIQUE: Multiaxial CT images of the chest were performed without contrast. A dose lowering techni que was utilized adhering to the principles of ALARA. COMPARISON: Chest radiograph 10/10/2019, a 01/12/2013, CTA of the chest 08/01/2012. FINDINGS: No focal thyroid nodule identified. There are a few prominent paratracheal and subcarinal lymph nodes measure up to 9 mm which are likely reactive. Heart is upper limits of normal in size. No pericardia l effusion. No thoracic aortic aneurysm. Main pulmonary artery is dilated measuring up to 3.1 cm whic h may reflect pulmonary arterial hypertension the appropriate clinical setting. There is no pneumotho rax or pleural effusion. Bilateral reticular opacities with intermixed groundglass densities are note d. Subpleural predominant cystic changes within an upper and mid lung zone predominant distribution m ost pronounced anteriorly are again noted with areas of adjacent traction bronchiectasis. Bilateral m osaic attenuation is suggestive of associated air trapping with atelectasis. No definite overt pulmon santiago edema or lobar airspace consolidation. Study is limited by respiratory motion artifact. Focal vanessa undglass nodular opacity of the basal right lower lobe measures 7 mm on image 142 of series 4. Centra l airways appear patent. Nonspecific mild distal esophageal wall thickening. Cholelithiasis. Soft tissues are unremarkable. Samm jovan appear intact. Avascular necrosis of the left humeral head without articular collapse. Probable b one island of the posterior left glenoid. There is an osseous are noted involving the posterolateral aspect of the left fifth and sixth ribs. IMPRESSION: 1. Respiratory motion artifact limits the study. 2. Chronic interstitial lung disease redemonstrated with findings suggestive of an NSIP pattern. Ther e are mixed bilateral groundglass opacities with mosaic attenuation suggestive of associated atelecta sis with air trapping. A superimposed atypical infectious or inflammatory pneumonitis could have a si milar appearance. 3. No pleural effusion. 4. Cholelithiasis. 5. Avascular necrosis without articular collapse of the left humeral head. 6. Possible 7 mm groundglass nodule of the basal right lower lobe. ACT 112: Negative or not required by law. Please refer to below summary of Fleischner criteria recommendations for follow-up of incidental CT n odules (Tiffanie Everett, Guidelines for management of small pulmonary nodules detected on CT scans: A sta tement from the Fleischner Society, Radiology 237: [phone].) Note: newly detected indeterminate nodule in persons 35 years of age or older. * Low risk patients: minimal or absent history of smoking and/or other known risk factors * high risk patients: history of smoking or of other known risk factors (e.g. first degree relative with lung cancer, or exposure to asbestos, radon, uranium) * if a nodule up to 8 mm is partly solid or is ground glass further follow-up is required after 24 m onths to exclude possible slow growing adenocarcinoma (GABBY) SUBSOLID NODULES Solitary pure ground-glass nodule * nodule size <6 mm - no CT follow-up required * nodule size >=6 mm - follow-up CT at 6-12 months, then every 2 years until 5 years The above report was generated using voice recognition software. It may contain grammatical, syntax o r spelling errors. Electronically signed by: Kev Fountain M.D. 10/11/2019 6:50 AM
[2019-10-11] MEDS ORDERED: GLUCOSE 40% GEL 15 GM TUBE PO PRN (08:07)
[2019-10-11] MEDS ORDERED: GLUCAGON FOR INJ 1 MG VIAL SQ PRN (08:07)
[2019-10-11] MEDS ORDERED: DEXTROSE 50% 50 ML SYRINGE IV PRN (08:07)
[2019-10-11] MEDS ORDERED: GLUCOSE 10 TABS/TUBE PO PRN (08:07)
[2019-10-11] MEDS ORDERED: CARBOHYDRATES FOR HYPOGLYCEMIA PO PRN (08:07)
[2019-10-11] MEDS ORDERED: PHARMACY GLYCEMIC MGMT CONSULT PRN (08:31)
[2019-10-11] MEDS ORDERED: INSULIN HUMAN NPH SC ONE (08:45)
[2019-10-11] MEDS ORDERED: MELOXICAM 7.5 MG TAB PO SCH (09:00)
[2019-10-11] MEDS: FLUTICASONE/VILANTEROL 100/25MCG 14 PUFFS/INHALER INH SCH (09:11)
[2019-10-11] MEDS: LOSARTAN POTASSIUM 50 MG TAB PO SCH (09:12)
[2019-10-11] MEDS: LINACLOTIDE 72 MCG CAPSULE PO SCH (09:12)
[2019-10-11] MEDS: ENOXAPARIN INJ 40 MG/0.4 ML SYR SQ SCH (09:12)
[2019-10-11] MEDS: PSYLLIUM 58.6% POWDER PACKET PO SCH (09:13)
[2019-10-11] MEDS: POLYETHYLENE (MIRALAX) 17 GM PACK PO SCH (09:13)
[2019-10-11] MEDS: GABAPENTIN 300 MG CAP PO SCH ×2 (09:14→21:13)
[2019-10-11] MEDS: FAMOTIDINE 20 MG TAB PO SCH (09:14)
[2019-10-11] MEDS: CEROVITE ADV FORMULA TAB PO SCH (09:14)
[2019-10-11] MEDS: PANTOprazole 40 MG TAB PO SCH ×2 (09:15→21:15)
[2019-10-11] MEDS: ROPINIROLE HCL 1 MG TABLET PO SCH (09:15)
[2019-10-11] MEDS: INSULIN ASPART 100 UNITS/ML 3 ML PEN SC SCH ×4 (09:54→21:11)
--- NOTE | 2019-10-11 10:26 | Pharmacy Report ---
Pharmacy Glycemic Short Note 2 - Date of Service October 11, 2019 - Glycemic Short BSG Results (Last 24 hours): 10/10/19 10/11/19 22:44 05:38 Glucose 182 H 289 H OUTPATIENT ANTIDIABETIC REGIMEN: * none * A1c = 6.9% (10/11/19) ASSESSMENT: * 54 yr old female with steroid induced hyperglycemia. No h/o of diabetes. A1c pending. * Patient admitted with increasing shortness of breath. Started on IV antibiotics and high dose IV steroids for COPD exacerbation. * Fasting BSG severely elevated at 289 mg/dL. * Will start weight based SQ basal and bolus insulin and titrate to goal. PLAN FOR INPATIENT GLYCEMIC CONTROL: * Basal insulin * NPH 15 units SQ this morning, then NPH per scale BIDM: * 7 units for BSG < 140 * 15 units for BSG 140-180 * 20 units for BSG > 180 * Bolus insulin * NovoLog per scale ACHS or Q6hrs while NPO * Goal Range: Low 120 mg/dL - High 150 mg/dL * Correction Factor: 20 mg/dL/unit * Nutritional / Prandial insulin per carb ratio of 1 unit per 7 grams CHO consumed * Add overnight checks at 00 and 04 PLAN FOR DISCHARGE: * pending
[2019-10-11] MEDS ORDERED: ALUMINUM/MAGNESIUM SUSP 30 ML UDC PO PRN (10:31)
[2019-10-11 12:41] LABS: Estimated Average Glucose 151 mg/dl; Hemoglobin A1C 6.9 % (4.5-5.6)
[2019-10-11] MEDS: SODIUM CHLORIDE 0.9% 1000ML 1,000 ML IV SCH (14:01)
--- NOTE | 2019-10-11 15:02 | Hospitalist Progress Note ---
Date of Service October 11, 2019 Assessment & Plan (1) Acute and chronic respiratory failure with hypoxia: - Possibly related to COPD/Pneumonia. - Currently requiring 2L via NC -- on home requirements. - Continue to monitor oxygen requirements, currently stable. (2) Sepsis: - HR 110-120's, lactic acidosis, leukocytosis noted on admission; no clear source identified. - BC pending; U/a pending collection. - Chest CT showed chronic interstitial markings, negative for acute abnormalities. - On IV fluids at 125 cc/hr. - Ceftriaxone/Azithromycin for empiric coverage. - Trend Lactic acid level q2hr until level is <2 (3) Lactic acidosis: - Lactic acid level continues to trend up -- unclear etiology, possibly underlying infection vs. dehydration vs. other. - Will continue to trend q2hr until level <2. - IV fluids at 125 cc/hr. (4) Tachycardia: - HR 110-120s -- upgrade to telemetry for further monitoring. - Limited 2D echo pending to evaluate for acute wall motion abnormalities, etc. - H/o atrioventricular stefany recurrent tachycardia s/p ablation in the past. - IV fluids for possible dehydration; also treating for acute infection as noted above. (5) Chest pain: - C/o sternal chest pain with radiation to her jaw/face. Pt. states this pain has been chronic for her, possibly related to GERD vs. gastric ulcer vs. cardiac source. - Initial trop was negative; will repeat troponin level. EKG was negative on admission. - On PPI BID and H2RA daily; consider GI consult for EGD to rule out gastric ulcer. - Low threshold for further cardiac work up if no improvement, including stress test. (6) COPD exacerbation: - Possible acute exacerbation of COPD. Completed 8-9 days of Augmentin at home along with 2-3 days Prednisone. - Continue Ceftriaxone and Azithromycin for empiric coverage. - On Solu-medrol 40 mg IV q6hr. - Ipratroprium q8hr scheduled (avoid albuterol due to tachycardia); continue home Breo-Ellipta. (7) Asthma with exacerbation: - Continue home inhalers. (8) Mood disorder: - Continue Trazodone as prescribed. (9) Chronic constipation: - Pt. reports she uses enemas at home. - CT A/P pending to evaluate for constipation vs. other acute abnormality. - Continue Linzess, Metamucil, Miralax as prescribed. (10) HTN (hypertension): - Continue Losartan as prescribed. - BP is currently stable. (11) GERD (gastroesophageal reflux disease): - PPI BID; Famotidine 20 mg daily. - Maalox prn. - C/o indigestion -- see chest pain diagnosis above. (12) Restless leg syndrome: - Continue Requip as prescribed. (13) Type II diabetes mellitus: - Hgb A1C is 6.9. - BG has been elevated during this admission -- steroid induced hyperglycemia. - Pharmacy consulted for glycemic management. (14) History of Guillain-Aitkin syndrome: - Admitted Jul 2009 to Sep 2009 then transferred to [facility] for severe illness; likely occurred during this time period. (15) History of pulmonary embolism: - In 2008; Lovenox ppx as inpatient. (16) History of ETOH abuse: - H/o ETOH intoxication. - Will order AWSS protocol and monitor for withdrawal. (17) DVT prophylaxis: - SCDs; Lovenox daily. Dispo: Upgrade to med/surg with tele for closer monitoring. Supervising Physician Co-Signing Physician Notes I seen and examined patient. I obtained a brief history and obtaind a physical examination. I reviewed above note by APC Katharine garcia. After reviewing above note, I will add the following. Patient continues to have lactic acidosis, beginning to doubt that this is type A lactic acidosis, and perhaps type B. Do not find any evidence of malignancy at this time. Will continue to trend. Patient also has evidence of pulmonary hypertension in the past. Patient may benefit from right heart cath, will consult cardio. In regards to her SOB, patient has had multiple episodes of SOB and this has been worked up with Bronchoscopy in the past. Patient should be re-evaluatd by pulmonary and perhaps either do a PFT, or rep eat bronchoscopy or both as outpatient. Patient will remain in the hospital. Subjective Pt. c/o 7/10 chest and epigastric pain this morning -- contributes pain to indigestion but is on PPI BID and H2RA daily. Denies cardiac history but does state pain radiates to her jaw/face. Has SOB, on home oxygen requirements. SOB is not increased above baseline at this point. Is coughing, has yellow sputum production. HR has been elevated, 110-120's but blood pressure currently stable. Lactic acid remains elevated despite treatment of COPD/pneumonia. Review of Systems Review of Systems: All systems reviewed & are unremarkable except as noted in HPI & below Constitutional: + fatigue, + weakness and + anorexia; no fever and no chills Respiratory: + cough, + dyspnea, + dyspnea on exertion and + sputum production; no wheezing Cardiovascular: + chest pain and + radiating jaw, neck or arm pain; no palpitations, no lightheadedness and no edema Gastrointestinal: + abdominal pain, + heartburn and + constipation; no nausea, no vomiting and no diarrhea/loose stools Genitourinary: no difficulty urinating Musculoskeletal: no back pain and no joint pain Integumentary: no non-healing lesions Physical Exam Physical Exam: General: Moderate distress HEENT: NC/AT; PERRLA with EOMI; [place] conjunctiva, MMM. No erythema of posterior pharynx Neck: Supple and nontender Cardiac: Tachycardic Lungs: on 2L via NC; CTA bilaterally Abdomen: Bowel normoactive X 4; Nontender to palpation Extremities: Warm. No edema present Neuro: No focal weakness Skin: No rash Results & Data Vital Signs (Past 12 Hours) Vital Signs Temp Pulse Resp BP Pulse Ox 10/11/19 08:25 36.9 C 10/11/19 07:36 112 H 22 121/73 95 10/11/19 07:09 116 H 16 97 10/11/19 04:44 116 H 16 97 Laboratory Results 10/11/19 10/11/19 10/11/19 Range/Units 14:19 13:58 12:33 WBC (4.8-10.8) K/uL RBC (4.2-5.4) M/uL Hgb (12.0-16.0) g/dL Hct (37-47) % MCV (80-100) fL MCH (25-34) pg MCHC (32-36) g/dL RDW Std Deviation (36.4-46.3) fL RDW Coeff of Joyce (11.5-14.5) % Plt Count (130-400) K/uL MPV (7.4-10.4) fL Immature Gran % (Auto) % Neut % (Auto) % Lymph % (Auto) % [place] % (Auto) % Eos % (Auto) % Baso % (Auto) % Immature Gran # (Auto) (0.00-0.02) K/uL Neut # (Auto) (1.4-6.5) K/uL Lymph # (Auto) (1.2-3.4) K/uL [place] # (Auto) (0.11-0.59) K/uL Eos # (Auto) (0-0.5) K/uL Baso # (Auto) (0-0.2) K/uL VBG pH (7.36-7.41) VBG pCO2 (38-50) mmHg VBG pO2 mmHg VBG HCO3 mmol/L VBG O2 Saturation % VBG Base Excess mEq/L Barometric Pressure mm/Hg Sodium (136-145) mmol/L Potassium (3.5-5.1) mmol/L Chloride (98-107) mmol/L Carbon Dioxide (21-32) mmol/L Anion Gap (3-11) BUN (7-18) mg/dl Creatinine (0.6-1.2) mg/dl Est Cr Clr Drug Dosing Est GFR ( Amer) Est GFR (Non-Af Amer) BUN/Creatinine Ratio (10-20) Glucose (70-99) mg/dl POC Glucose 231 H (70-99) mg/dl Estimat Average Glucose mg/dl Hemoglobin A1c (4.5-5.6) % Lactate (0.4-2.0) mmol/L Calcium (8.5-10.1) mg/dl Phosphorus (2.5-4.9) mg/dl Magnesium (1.8-2.4) mg/dl Total Bilirubin Pending (0.2-1) mg/dl Direct Bilirubin Pending AST Pending (15-37) U/L ALT Pending (12-78) U/L Alkaline Phosphatase Pending (45-117) U/L Total Creatine Kinase Pending Troponin I Pending (0-0.045) ng/ml NT-Pro-B Natriuret Pep (0-900) pg/ml Total Protein Pending (6.4-8.2) gm/dl Albumin Pending (3.4-5.0) gm/dl Globulin (2.5-4.0) gm/dl Albumin/Globulin Ratio (0.9-2) Lipase (73-393) U/L Specimen Hemolysis Nasal Screen MRSA (PCR) Pending Influenza Type A (PCR) (Neg) Influenza Type B (PCR) (Neg) 10/11/19 10/11/19 10/11/19 Range/Units 12:06 12:06 05:38 WBC (4.8-10.8) K/uL RBC (4.2-5.4) M/uL Hgb (12.0-16.0) g/dL Hct (37-47) % MCV (80-100) fL MCH (25-34) pg MCHC (32-36) g/dL RDW Std Deviation (36.4-46.3) fL RDW Coeff of Joyce (11.5-14.5) % Plt Count (130-400) K/uL MPV (7.4-10.4) fL Immature Gran % (Auto) % Neut % (Auto) % Lymph % (Auto) % [place] % (Auto) % Eos % (Auto) % Baso % (Auto) % Immature Gran # (Auto) (0.00-0.02) K/uL Neut # (Auto) (1.4-6.5) K/uL Lymph # (Auto) (1.2-3.4) K/uL [place] # (Auto) (0.11-0.59) K/uL Eos # (Auto) (0-0.5) K/uL Baso # (Auto) (0-0.2) K/uL VBG pH (7.36-7.41) VBG pCO2 (38-50) mmHg VBG pO2 mmHg VBG HCO3 mmol/L VBG O2 Saturation % VBG Base Excess mEq/L Barometric Pressure mm/Hg Sodium (136-145) mmol/L Potassium (3.5-5.1) mmol/L Chloride (98-107) mmol/L Carbon Dioxide (21-32) mmol/L Anion Gap (3-11) BUN (7-18) mg/dl Creatinine (0.6-1.2) mg/dl Est Cr Clr Drug Dosing Est GFR ( Amer) Est GFR (Non-Af Amer) BUN/Creatinine Ratio (10-20) Glucose (70-99) mg/dl POC Glucose (70-99) mg/dl Estimat Average Glucose 151 mg/dl Hemoglobin A1c 6.9 H (4.5-5.6) % Lactate 5.4 H* 4.3 H* (0.4-2.0) mmol/L Calcium (8.5-10.1) mg/dl Phosphorus (2.5-4.9) mg/dl Magnesium (1.8-2.4) mg/dl Total Bilirubin (0.2-1) mg/dl Direct Bilirubin AST (15-37) U/L ALT (12-78) U/L Alkaline Phosphatase (45-117) U/L Total Creatine Kinase Troponin I (0-0.045) ng/ml NT-Pro-B Natriuret Pep (0-900) pg/ml Total Protein (6.4-8.2) gm/dl Albumin (3.4-5.0) gm/dl Globulin (2.5-4.0) gm/dl Albumin/Globulin Ratio (0.9-2) Lipase (73-393) U/L Specimen Hemolysis Nasal Screen MRSA (PCR) Influenza Type A (PCR) (Neg) Influenza Type B (PCR) (Neg) 10/11/19 10/11/19 10/11/19 Range/Units 05:38 05:38 02:09 WBC 5.41 (4.8-10.8) K/uL RBC 4.49 (4.2-5.4) M/uL Hgb 15.0 (12.0-16.0) g/dL Hct 42.9 (37-47) % MCV 95.5 (80-100) fL MCH 33.4 (25-34) pg MCHC 35.0 (32-36) g/dL RDW Std Deviation 44.4 (36.4-46.3) fL RDW Coeff of Joyce 12.9 (11.5-14.5) % Plt Count 183 (130-400) K/uL MPV 10.6 H (7.4-10.4) fL Immature Gran % (Auto) % Neut % (Auto) % Lymph % (Auto) % [place] % (Auto) % Eos % (Auto) % Baso % (Auto) % Immature Gran # (Auto) (0.00-0.02) K/uL Neut # (Auto) (1.4-6.5) K/uL Lymph # (Auto) (1.2-3.4) K/uL [place] # (Auto) (0.11-0.59) K/uL Eos # (Auto) (0-0.5) K/uL Baso # (Auto) (0-0.2) K/uL VBG pH (7.36-7.41) VBG pCO2 (38-50) mmHg VBG pO2 mmHg VBG HCO3 mmol/L VBG O2 Saturation % VBG Base Excess mEq/L Barometric Pressure mm/Hg Sodium 136 (136-145) mmol/L Potassium 4.5 D (3.5-5.1) mmol/L Chloride 102 (98-107) mmol/L Carbon Dioxide 21 (21-32) mmol/L Anion Gap 13.0 H (3-11) BUN 19 H (7-18) mg/dl Creatinine 0.93 (0.6-1.2) mg/dl Est Cr Clr Drug Dosing 66.7 Est GFR ( Amer) 80.8 Est GFR (Non-Af Amer) 69.7 BUN/Creatinine Ratio 20.8 H (10-20) Glucose 289 H (70-99) mg/dl POC Glucose (70-99) mg/dl Estimat Average Glucose mg/dl Hemoglobin A1c (4.5-5.6) % Lactate 5.9 H* (0.4-2.0) mmol/L Calcium 8.4 L (8.5-10.1) mg/dl Phosphorus (2.5-4.9) mg/dl Magnesium (1.8-2.4) mg/dl Total Bilirubin (0.2-1) mg/dl Direct Bilirubin AST (15-37) U/L ALT (12-78) U/L Alkaline Phosphatase (45-117) U/L Total Creatine Kinase Troponin I (0-0.045) ng/ml NT-Pro-B Natriuret Pep (0-900) pg/ml Total Protein (6.4-8.2) gm/dl Albumin (3.4-5.0) gm/dl Globulin (2.5-4.0) gm/dl Albumin/Globulin Ratio (0.9-2) Lipase (73-393) U/L Specimen Hemolysis Nasal Screen MRSA (PCR) Influenza Type A (PCR) (Neg) Influenza Type B (PCR) (Neg) 01/27/20 01/27/20 01/27/20 Range/Units 23:59 22:50 22:44 WBC (4.8-10.8) K/uL RBC (4.2-5.4) M/uL Hgb (12.0-16.0) g/dL Hct (37-47) % MCV (80-100) fL MCH (25-34) pg MCHC (32-36) g/dL RDW Std Deviation (36.4-46.3) fL RDW Coeff of Joyce (11.5-14.5) % Plt Count (130-400) K/uL MPV (7.4-10.4) fL Immature Gran % (Auto) % Neut % (Auto) % Lymph % (Auto) % [place] % (Auto) % Eos % (Auto) % Baso % (Auto) % Immature Gran # (Auto) (0.00-0.02) K/uL Neut # (Auto) (1.4-6.5) K/uL Lymph # (Auto) (1.2-3.4) K/uL [place] # (Auto) (0.11-0.59) K/uL Eos # (Auto) (0-0.5) K/uL Baso # (Auto) (0-0.2) K/uL VBG pH 7.40 (7.36-7.41) VBG pCO2 48 (38-50) mmHg VBG pO2 29 mmHg VBG HCO3 29 mmol/L VBG O2 Saturation < 60.0 % VBG Base Excess 3.2 mEq/L Barometric Pressure 727.1 mm/Hg Sodium 138 (136-145) mmol/L Potassium 3.8 (3.5-5.1) mmol/L Chloride 102 (98-107) mmol/L Carbon Dioxide 25 (21-32) mmol/L Anion Gap 11.0 (3-11) BUN 22 H (7-18) mg/dl Creatinine 0.90 (0.6-1.2) mg/dl Est Cr Clr Drug Dosing Not Reportable Est GFR ( Amer) 84.0 Est GFR (Non-Af Amer) 72.5 BUN/Creatinine Ratio 24.0 H (10-20) Glucose 182 H (70-99) mg/dl POC Glucose (70-99) mg/dl Estimat Average Glucose mg/dl Hemoglobin A1c (4.5-5.6) % Lactate 3.7 H* (0.4-2.0) mmol/L Calcium 9.2 (8.5-10.1) mg/dl Phosphorus 2.4 L (2.5-4.9) mg/dl Magnesium 2.5 H (1.8-2.4) mg/dl Total Bilirubin 0.5 (0.2-1) mg/dl Direct Bilirubin AST 26 (15-37) U/L ALT 73 (12-78) U/L Alkaline Phosphatase 107 (45-117) U/L Total Creatine Kinase Troponin I < 0.015 (0-0.045) ng/ml NT-Pro-B Natriuret Pep 53 (0-900) pg/ml Total Protein 7.9 (6.4-8.2) gm/dl Albumin 4.2 (3.4-5.0) gm/dl Globulin 3.7 (2.5-4.0) gm/dl Albumin/Globulin Ratio 1.1 (0.9-2) Lipase 96 (73-393) U/L Specimen Hemolysis Nasal Screen MRSA (PCR) Influenza Type A (PCR) (Neg) Influenza Type B (PCR) (Neg) 10/10/19 10/10/19 Range/Units 22:44 22:40 WBC 11.21 H (4.8-10.8) K/uL RBC 5.15 (4.2-5.4) M/uL Hgb 17.3 H (12.0-16.0) g/dL Hct 48.7 H (37-47) % MCV 94.6 (80-100) fL MCH 33.6 (25-34) pg MCHC 35.5 (32-36) g/dL RDW Std Deviation 43.9 (36.4-46.3) fL RDW Coeff of Joyce 12.8 (11.5-14.5) % Plt Count 225 (130-400) K/uL MPV 10.9 H (7.4-10.4) fL Immature Gran % (Auto) 0.3 % Neut % (Auto) 50.6 % Lymph % (Auto) 40.9 % [place] % (Auto) 7.9 % Eos % (Auto) 0.1 % Baso % (Auto) 0.2 % Immature Gran # (Auto) 0.03 H (0.00-0.02) K/uL Neut # (Auto) 5.68 (1.4-6.5) K/uL Lymph # (Auto) 4.58 H (1.2-3.4) K/uL [place] # (Auto) 0.89 H (0.11-0.59) K/uL Eos # (Auto) 0.01 (0-0.5) K/uL Baso # (Auto) 0.02 (0-0.2) K/uL VBG pH (7.36-7.41) VBG pCO2 (38-50) mmHg VBG pO2 mmHg VBG HCO3 mmol/L VBG O2 Saturation % VBG Base Excess mEq/L Barometric Pressure mm/Hg Sodium (136-145) mmol/L Potassium (3.5-5.1) mmol/L Chloride (98-107) mmol/L Carbon Dioxide (21-32) mmol/L Anion Gap (3-11) BUN (7-18) mg/dl Creatinine (0.6-1.2) mg/dl Est Cr Clr Drug Dosing Est GFR ( Amer) Est GFR (Non-Af Amer) BUN/Creatinine Ratio (10-20) Glucose (70-99) mg/dl POC Glucose (70-99) mg/dl Estimat Average Glucose mg/dl Hemoglobin A1c (4.5-5.6) % Lactate (0.4-2.0) mmol/L Calcium (8.5-10.1) mg/dl Phosphorus (2.5-4.9) mg/dl Magnesium (1.8-2.4) mg/dl Total Bilirubin (0.2-1) mg/dl Direct Bilirubin AST (15-37) U/L ALT (12-78) U/L Alkaline Phosphatase (45-117) U/L Total Creatine Kinase Troponin I (0-0.045) ng/ml NT-Pro-B Natriuret Pep (0-900) pg/ml Total Protein (6.4-8.2) gm/dl Albumin (3.4-5.0) gm/dl Globulin (2.5-4.0) gm/dl Albumin/Globulin Ratio (0.9-2) Lipase (73-393) U/L Specimen Hemolysis Nasal Screen MRSA (PCR) Influenza Type A (PCR) Neg for Influ A (Neg) Influenza Type B (PCR) Neg for Influ B (Neg) PG Care Time/CCT Total # of Minutes Spent Total Time Spent with Patient: Total time spent is greater than 50% in coordination of care (as documented) at patient's floor/unit and/or counseling patient: Coding Level of Care Code None Diagnoses Acute and chronic respiratory failure with hypoxia J96.21 Sepsis A41.9 Lactic acidosis E87.2 Tachycardia R00.0 Chest pain R07.9 COPD exacerbation J44.1 Asthma with exacerbation J45.901 Mood disorder F39 Chronic constipation K59.09 HTN (hypertension) I10 GERD (gastroesophageal reflux disease) K21.9 Restless leg syndrome G25.81 Type II diabetes mellitus E11.9 History of Guillain-Aitkin syndrome Z86.69 History of pulmonary embolism Z86.711 History of ETOH abuse F10.11 DVT prophylaxis Z29.9
[2019-10-11 15:13] LABS: Alanine Aminotransferase 58 U/L (12-78); Albumin Level 3.8 gm/dl (3.4-5.0); Alkaline Phosphatase 88 U/L (45-117); Aspartate Aminotransferase 15 U/L (15-37); Bilirubin Direct < 0.1 mg/dl (0-0.2); Bilirubin,Total 0.4 mg/dl (0.2-1); Creatine Kinase 52 U/L (26-192); Total Protein 7.3 gm/dl (6.4-8.2); Troponin I < 0.015 ng/ml (0-0.045)
[2019-10-11] MEDS ORDERED: LORazepam 1 MG TAB PO PRN (16:24)
[2019-10-11] MEDS ORDERED: IPRATROPIUM BROMIDE NEB SOLN 0.02% 2.5 ML VIAL NEB SCH (16:30)
--- NOTE | 2019-10-11 17:03 | XCELERA ---
[id number] \\[id number]
[2019-10-11] MEDS ORDERED: GUAIFENESIN/DEXTROM SYRUP 200MG/20MG 10ML UDC PO PRN (17:07)
[2019-10-11] MEDS: THIAMINE HCL 100 MG TAB PO SCH (17:43)
[2019-10-11] MEDS ORDERED: IOVERSOL 100ml IV PRN (18:34)
--- NOTE | 2019-10-11 18:46 | CT Scan Report ---
CT abd pelvis oral and IV con CLINICAL HISTORY: Abdominal pain and lactic acidosis. COMPARISON STUDY: June 2018 TECHNIQUE: The patient was scanned following administration of dilute oral contrast, and in a dynamic helical fashion during intravenous administration of 92 cc of Optiray 320 A dose lowering technique was utilized adhering to the principles of ALARA. CT DOSE: 765.55 mGy.cm FINDINGS: Lower chest: There is interstitial thickening with a subpleural distribution most pronounced within t he right. Liver: The contrast-enhanced liver is normal in size, contour, and attenuation. There is no intrahepa tic biliary ductal dilatation. The hepatic veins and portal veins are patent. Gallbladder: Cholelithiasis. Spleen: Normal in size and attenuation. Pancreas: Unremarkable. Adrenal glands: Unremarkable. Kidneys: There is symmetric renal cortical enhancement. The kidneys are normal in size without hydron ephrosis. Bowel: There are no transition zones indicate bowel obstruction. There is colonic diverticulosis. The re is no evidence of acute diverticulitis. There are no findings to indicate acute appendicitis. Ther e is moderate fecal retention. Peritoneum: There is no intraperitoneal free air or abdominal ascites. Vasculature: The abdominal aorta is normal in course and caliber. Adenopathy: None. Pelvic viscera: The bladder, and pelvic viscera are unremarkable. Skeletal structures: No destructive osseous lesions are seen. IMPRESSION: 1. No evidence of bowel obstruction. No evidence of free air 2. Diverticulosis. No evidence of acute diverticulitis. 3. No evidence of acute appendicitis 4. Mild fecal retention 5. Cholelithiasis ACT 112: Negative or not required by law. Electronically signed by: Gunnar Rey M.D. 10/11/2019 6:45 PM
[2019-10-11] MEDS: INSULIN HUMAN NPH SC SCH (19:03)
[2019-10-11] MEDS: LEVALBUTEROL HCL 0.63 MG/3 ML NEB NEB SCH (19:50)
[2019-10-11] MEDS ORDERED: AZITHROMYCIN 500 MG in DEXTROSE 5% 250 ML IV SCH (20:00)
[2019-10-11] MEDS: AZITHROMYCIN 250 MG in DEXTROSE 5% 250 ML IV SCH (21:08)
[2019-10-11] MEDS: MONTELUKAST SODIUM 10 MG TABLET PO SCH (21:14)
[2019-10-11] MEDS: TRAZODONE HCL 100 MG TAB PO SCH (21:15)
[2019-10-11] MEDS: CYCLOBENZAPRINE HCL 10 MG TAB PO PRN (21:22)
[2019-10-11 22:00] LABS: Appearance Urine Clear (Clear); Bilirubin Urine Negative (Negative); Blood Urine Negative (Negative); Color Urine Yellow; Glucose Urine UA Trace (Negative); Ketones Urine Negative (Negative); Nitrite Urine Negative (Negative); Protein Urine Negative (Negative); Specific Gravity Urine > 1.045 (1.000-1.030); Urobilinogen Urine Negative (Negative)
[2019-10-11] MEDS ORDERED: cefTRIAXone SODIUM 1,000 MG in DEXTROSE 5% 50 ML IV SCH (22:00)
[2019-10-11 22:01] LABS: Leukocyte Esterase Urine Negative (Negative)
[2019-10-12] MEDS: INSULIN ASPART 100 UNITS/ML 3 ML PEN SC SCH ×6 (00:13→21:16)
[2019-10-12] MEDS ORDERED: LEVALBUTEROL HCL 0.63 MG/3 ML NEB NEB STA (01:50)
[2019-10-12] MEDS: SODIUM CHLORIDE 0.9% 1000ML 1,000 ML IV SCH (03:15)
[2019-10-12] MEDS: MoRPHine SULFATE 2 MG/ML CARP IV PRN ×2 (04:27→10:03)
[2019-10-12] MEDS: methylPREDNISolone 40 MG in SYRINGE 0 ML IV SCH (04:28)
[2019-10-12] MEDS: LEVALBUTEROL HCL 0.63 MG/3 ML NEB NEB SCH ×3 (07:05→19:21)
[2019-10-12 08:04] LABS: Hematocrit (blood only) 42.2 % (37-47); Hemoglobin 14.4 g/dL (12.0-16.0); Immature Granulocytes # (auto) 0.03 K/uL (0.00-0.02); Immature Granulocytes % (auto) 0.3 %; Lymphocytes # (auto) 0.69 K/uL (1.2-3.4); Lymphocytes % (auto) 7.6 %; Mean Corpuscular Hemoglobin 32.4 pg (25-34); Mean Corpuscular Hgb Conc 34.1 g/dL (32-36); Mean Platelet Volume 11.2 fL (7.4-10.4); Monocytes # (auto) 0.24 K/uL (0.11-0.59); Monocytes % (auto) 2.6 %; Neutrophils # (auto) 8.14 K/uL (1.4-6.5); Neutrophils % (auto) 89.5 %; Platelet Count 182 K/uL (130-400); RDW Coefficient of Variation 12.8 % (11.5-14.5); RDW Standard Deviation 44.4 fL (36.4-46.3); Red Blood Count 4.44 M/uL (4.2-5.4)
[2019-10-12 08:40] LABS: Albumin Level 3.5 gm/dl (3.4-5.0); BUN Creatinine Ratio 21.4 (10-20); Calcium 9.1 mg/dl (8.5-10.1); Creatinine Clr Calc Pharmacy 82.5 ml/min; Est GFR (African American) 103.1; Est GFR (Non-African American) 88.9; Magnesium 2.4 mg/dl (1.8-2.4); Potassium 3.9 mmol/L (3.5-5.1)
[2019-10-12] MEDS: INSULIN HUMAN NPH SC SCH ×2 (08:41→18:15)
[2019-10-12 08:43] LABS: Bilirubin,Total 0.5 mg/dl (0.2-1); Globulin 3.4 gm/dl (2.5-4.0); Phosphorus 2.8 mg/dl (2.5-4.9); Total Protein 6.9 gm/dl (6.4-8.2)
[2019-10-12 08:49] LABS: Thyroid Stimulating Hormone 0.06 uIu/ml (0.300-4.500)
[2019-10-12] MEDS: ROPINIROLE HCL 1 MG TABLET PO SCH (08:49)
[2019-10-12] MEDS: PSYLLIUM 58.6% POWDER PACKET PO SCH (08:49)
[2019-10-12] MEDS: LOSARTAN POTASSIUM 50 MG TAB PO SCH (08:50)
[2019-10-12] MEDS: GABAPENTIN 300 MG CAP PO SCH ×2 (08:51→21:15)
[2019-10-12] MEDS: ENOXAPARIN INJ 40 MG/0.4 ML SYR SQ SCH (08:51)
[2019-10-12] MEDS: PANTOprazole 40 MG TAB PO SCH ×2 (08:51→21:15)
[2019-10-12] MEDS: CEROVITE ADV FORMULA TAB PO SCH (08:51)
[2019-10-12] MEDS: LINACLOTIDE 72 MCG CAPSULE PO SCH (08:52)
[2019-10-12] MEDS: FOLIC ACID 1 MG TAB PO SCH (08:52)
[2019-10-12] MEDS: FLUTICASONE/VILANTEROL 100/25MCG 14 PUFFS/INHALER INH SCH (08:53)
[2019-10-12] MEDS: FAMOTIDINE 20 MG TAB PO SCH (08:54)
[2019-10-12] MEDS: POLYETHYLENE (MIRALAX) 17 GM PACK PO SCH (08:54)
[2019-10-12] MEDS: THIAMINE HCL 100 MG TAB PO SCH (08:55)
[2019-10-12] MEDS ORDERED: guaiFENesin 600 MG TABCR PO SCH (09:00)
[2019-10-12 09:01] LABS: T4 Free Thyroxine 1.21 ng/dl (0.8-1.6)
[2019-10-12] MEDS: CYCLOBENZAPRINE HCL 10 MG TAB PO PRN ×2 (10:03→19:13)
--- NOTE | 2019-10-12 11:01 | Gastrointestinal Consultation ---
Date of Consultation October 12, 2019 Assessment & Plan (1) Epigastric pain: Ms. Schmitt is a 54 yr old female pt admitted for COPD exacerbation, possible sepsis who reports a 3 month hx of epigastric pain, worse immediately after eating, which has caused a 30 lbs weight loss. She is hemodynamically stable and does not seem to be experiencing a gross GI bleed, though, when asked she does mention passing a black BM about a week ago when she was very constipated. EGD is recommended to r/o gastritis, esophagitis, ulcer disease, although EGD is not urgent and sepsis should be ruled out or completely treated and pulmonary status optimized prior to EGD. Would continue the high dose BID PPI and the daily famotidine that she takes as an OP. Pt tells us that she has seen Lili/Darleen in the past. It would be reasonable for her to undergo EGD as well as initial screening colonoscopy with that group after Discharge. We would also be happy to provide these procedures for her. Present on Admission?: Yes Supervising Physician Co-Signing Physician Notes Attending attestation I have seen, examined this patient, and agree with the findings and above by our mid-level provider RAYMOND Heath, with the following additions Soft abdomen, in the setting of chronic abdominal pain for 3 to 4 months time. She is admitted with respiratory exacerbation of chronic lung disease with a history of tracheostomy that was removed several years ago. Still having coughing as well as oxygen requirement. CT scan is normal for any upper GI pathology LFTs and lipase are normal. Likely heartburn related, other etiologies may be gastroparesis, given the weight loss EGD and colonoscopy should be pursued as an outpatient when lung issues have improved. Please call with any questions or concerns Would recommend outpatient follow-up after pulmonary issues resolved. History of Present Illness Reason for Consultation: Epigastric pain Requesting Physician: Katharine Whitfield PA-C Attending Physician: Tereso Hinojosa History of Present Illness Ms. Pippa Schmitt is a 54 yr old female pt of Dr. 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 She is maintained on pantoprazole 40mg BID and famotidine 20mg QD at home. She tells me that she has severe epigastric pain, as soon as foods or hot liquids "hit the stomach," and points to the epigastric area. This has been present for about 3 months and has caused about 30lbs weight loss. She has never previously undergone endoscopy no upper or colonoscopy), though she has been seen [facility]/Dajuanler. She has eaten breakfast this morning. She denies any blood in stools. She has had nausea but no vomiting. Despite the Linzess, she has severe, chronic constipation and uses enemas to pass BMs. Allergies Allergy/AdvReac Type Severity Reaction Status Date / Time red dye Allergy Intermediate RED FOOD Verified 09/21/19 13:27 DYE CAUSES SEVERE ASTHMA ATTACK yellow dye Allergy Intermediate YELLOW Verified 09/21/19 13:27 FOOD DYE CAUSES SEVERE ASTHMA ATTACK diphtheria toxoid,fluid Allergy Mild Verified 09/21/19 13:27 tetanus toxoid, adsorbed Allergy Mild Verified 09/21/19 13:27 mold Allergy Unknown ASTHMA Verified 09/21/19 13:27 ATTACK Dust Allergy Unknown ASTHMA Uncoded 09/21/19 13:27 ATTACK Home Medications Home Medications Medication Instructions Recorded Confirmed Type albuterol sulfate 2.5 mg INHALATION QID PRN 07/05/18 10/10/19 History fluticasone furoate-vilanterol 1 inh INHALATION DAILY 07/05/18 10/10/19 History [Breo Ellipta] gabapentin 300 mg PO BID 07/05/18 10/10/19 History melatonin 10 mg PO HS PRN 07/05/18 10/10/19 History pantoprazole [Protonix] 40 mg PO BID 07/05/18 10/10/19 History polyethylene glycol 3350 17 g PO DAILY 07/05/18 10/10/19 History albuterol sulfate 90 mcg/actuation See Rx Instructions .ROUTE 07/15/19 10/10/19 Rx aerosol inhaler .COMPLEX #54 gram losartan 100 mg tablet 100 mg PO DAILY #90 tab 07/29/19 10/10/19 Rx montelukast 10 mg tablet 10 mg PO DAILY #30 tab 08/03/19 10/10/19 Rx cyclobenzaprine 10 mg tablet 10 mg PO TID PRN #90 tab 08/22/19 10/10/19 Rx famotidine 20 mg tablet 20 mg PO DAILY #90 tab 08/23/19 10/10/19 Rx trazodone 100 mg tablet 200 mg PO HS #180 tab 08/23/19 10/10/19 Rx ropinirole 1 mg tablet 1 mg PO DAILY #60 tab 09/09/19 10/10/19 Rx hydrocodone 5 mg-acetaminophen 325 1 tab PO Q8H PRN #60 tab 09/21/19 10/10/19 Rx mg tablet multivitamin-ferrous 1 tab PO DAILY 09/21/19 10/10/19 History fumarate-folic acid 18 mg-400 mcg tablet psyllium husk 0.52 gram capsule 2.6 gm PO DAILY cap 09/21/19 10/10/19 History linaclotide 290 mcg capsule 290 mcg PO DAILY #30 cap 09/26/19 10/10/19 Rx diclofenac sodium 1 % topical gel 2 gm TOP QID #100 gm 09/28/19 10/10/19 Rx meloxicam 15 mg tablet 15 mg PO DAILY #30 tab 09/28/19 10/10/19 Rx prednisone 10 mg PO DIRECTED 10/10/19 10/10/19 History Patient History Medical History Aggressive behavior (Resolved) Alcohol intoxication (Resolved) Anxiety (Chronic) Asthma with exacerbation (Chronic) 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) Bronchitis (Resolved) Contusion of face (Resolved 04/27/11) COPD (chronic obstructive pulmonary disease) Depression (Chronic) Foot contusion (Resolved) Gastroenteritis (Resolved) Mood disorder (Chronic) Family History Other No significant family history Social History Preferred Language: [place]e Communication Ability: Effective Mri Supervisor Required: No Beliefs That Will Affect Care: None marital status: Single Current Living Situation: Alone Other Information That Helps Us Care for You: No Feels Safe at Home: Yes Safety Concerns: Afraid for Self Smoking Status: Never smoker Do You Dip or Chew Tobacco: No ; Second Hand Exposure: No ; Tobacco Cessation Education Requested by Patient: No Hx Alcohol Use: Yes Alcohol type: wine Hx Substance Use: No Review of Systems Review of Systems: ROS: Gen: + weakness and weight loss, no fevers Eyes: No eye redness, or pain, no recent vision changes Resp: + SOB/no cough Cardio: + chest pain; denies any palpitations GI: See HPI : Denies pain on urination Skin: No jaundice, itching or new rashes Physical Exam Constitutional: WD/WN, vitals as above Eyes: PERRL, conjunctivae normal, anicteric sclerae ENMT: external ear and nose normal, oropharynx normal Neck: trachea midline, no thyromegaly Respiratory: normal respiratory effort Auscultation: + diminished lung sounds (at bases) and + wheezes (throughout) Cardiovascular: RRR, no murmur, no edema Gastrointestinal (Abdomen): Inspection/Auscultation: normal bowel sounds; abdomen not distended Percussion/Palpation: + abdomen tender (in the epigastric area) and abdomen soft obese Skin: no rashes, warm and dry Neurologic: PERRL, EOMI, accommodation nl, no face palsy, no dysarthria Psychiatric: A+Ox3, euthymic affect Lymphatic: no cervical or axillary lymphadenopathy Results & Data Vital Signs (Past 12 Hours) Vital Signs Temp Pulse Resp BP BP Pulse Ox 10/12/19 07:11 36.7 C 114 H 20 136/88 90 10/12/19 07:06 118 H 20 93 10/12/19 03:17 36.8 C 112 H 20 129/85 96 10/12/19 02:17 112 H 16 96 10/11/19 23:19 36.6 C 106 H 19 131/90 95 Laboratory Results WBC 9, Hb 14, hct 42, Platlets 182, Na 139, K 3.9, Bun 16, Cr 0.7, Platelets 229. Diagnostic Findings CT abd/pelvis with IV and oral contrast 10/11/19: 1. No evidence of bowel obstruction. No evidence of free air 2. Diverticulosis. No evidence of acute diverticulitis. 3. No evidence of acute appendicitis 4. Mild fecal retention 5. Cholelithiasis
[2019-10-12] MEDS ORDERED: cefTRIAXone SODIUM 1,000 MG in DEXTROSE 5% 50 ML IV ONE (11:30)
--- NOTE | 2019-10-12 12:51 | Pharmacy Report ---
Glycemic Control Progress Note - Date of Service October 12, 2019 - Scope Glycemic Pharmacist consulted for glycemic control to write orders per [facility] inpatient glycemic control protocol. - Objective Accuchecks BSG(last 24 hours):: 10/11/19 10/11/19 10/12/19 16:27 19:54 00:02 Glucose POC Glucose 179 H 196 H 224 H 10/12/19 10/12/19 10/12/19 03:58 07:11 07:42 Glucose 228 H POC Glucose 162 H 203 H 10/12/19 11:42 Glucose POC Glucose 174 H HbA1c:: Hemoglobin A1c 6.9 % (4.5-5.6) H 10/11/19 12:06 - Recent Pertinent Medications The patient is currently receiving: * Basal insulin: NPH 7-20 units BIDM (7 units if blood sugar <140 mg/dL; 15 units if BSG 140-180 mg/dL; 20 units if BSG > 180 mg/dL) * Correctional Insulin: Novolog Correction per scale ACHS Goal Range: Low 120 mg/dL - High 150 mg/dL Correction Factor: 20 mg/dL/unit * Prandial insulin: Per carb ratio of 1 unit per 7 grams CHO consumed - Outpatient Anti-Diabetic Meds N/A - Assessment & Plan ASSESSMENT: * See progress note from 10/11/2019 for more background info, in short: * Pt receiving SQ basal bolus insulin regimen for hyperglycemia secondary to baseline DM (outpatient regimen on hold) -- patient not on diabetic m edications,stress/infection (on Rocephin/Zithromax), and steroids (on Solu- Medrol 40 mg IV q 6 which was changed today to prednisone 40 mg daily). * Patient is currently receiving an average of 56 units of insulin per day * 30 units of basal insulin * 26 units of prandial/correctional insulin * BSGs ranging 179 - 289 mg/dl over the past 24hrs * Changes needed to insulin regimen: * AM Fasting BSG = 203 mg/dl. This is above goal range for patient based on inpatient targets and co-morbidities. IV steroids were d/c'ed today therefore insulin requirements will decrease. Prednisone 40 mg PO daily started for tomorrow. Will continue with NPH. For today will utilize twice daily regimen (as IV steroid effects will hold on until tomorrow), but will remove 20 unit dose. Hold parameters as exist. Tomorrow will start NPH 30 units (0.4 units/kg) for prednisone 40 units. * Post-prandial BSGs were elevated yesterday. Tightened slightly. * Total daily dose = ? units. Patient's requirements are changing daily. PLAN FOR INPATIENT GLYCEMIC CONTROL: * Changing NPH to * NPH 0-15 units today at dinner (0 units if BSG < 140 mg/dL; 7 units if BSG 140-180 mg/dL; 15 units if BSG > 180 mg/dL) * then NPH 30 units SQ daily. * Changing correction factor to 15 mg/dl/unit * Changing carb ratio to 1 unit per 6 grams CHO consumed * Lowering goal range to Low 110 mg/dL - High 140 mg/dL RECOMMENDATIONS FOR DISCHARGE: * Consider initiation of metformin XR 500 mg daily. Titrate every 1-2 weeks to goal of metformin XR 1 GM PO BID. * With metformin consider vitamin B12 supplementation. Thank you.
--- NOTE | 2019-10-12 12:51 | Cardiology Consultation ---
Date of Consultation October 12, 2019 Assessment & Plan (1) Tachycardia: The patient has sinus tachycardia. Do not believe this is related to a primary cardiac process. Likely reactive due to persistent coughing and breathing difficulties. Normal LV systolic function and well compensated on exam. (2) Chest pain: Her chest pain is atypical. No elevation of cardiac biomarkers despite prolonged episodes of discomfort. Most likely GI related. (3) Dyspnea: Do not believe her dyspnea is related to cardiac dysfunction. In addition to preserved LV systolic function she had a normal N terminal proBNP at the time of admission. This would almost definitely exclude pulmonary vascular congestion as the etiology of her symptoms. There was some concern regarding pulmonary hypertension. A right heart catheterization could be performed to measure intrapulmonary pressures if this would be helpful in making a diagnosis or guiding therapy. History of Present Illness Reason for Consultation: Dyspnea Requesting Physician: loc Attending Physician: Tereso Hinojosa History of Present Illness Patient is a 54-year-old woman with a history of lung disease who in was admitted to the hospital for symptoms of worsening dyspnea. The patient states that ever since an episode of can MRA and ARDS she has been experiencing some element of dyspnea. This is primarily related to exertion. Over 5 days leading up to her admission her dyspnea had worsened. She does use supplemental oxygen some of the time. However she did report not using supplemental oxygen at times she does not want to get her body used to the oxygen". She has also developed a cough producing scant and non bloody sputum. She did not report subjective fevers or chills. She does have a headache and some abdominal discomfort that she associates with forceful coughing spells. She also some dizziness associated with forceful coughing. She does sleep upright at nighttime. She has slept upright for some time due to symptoms of reflux. She states that in the past she actually would wake up with acid coming out of my nose". This has been improved recently. She has also developed some reduced appetite. Claims to be eating less and has some difficulty with eating due to epigastric pain. She states that as soon as she eats liquids or solids she will experience excruciating pain in the epigastrium. As result she claims to have lost 30 pounds recently. She has a constant discomfort in the epigastric region. This is not exertional in nature but is more related to eating. She has not been aware of any palpitations recently. She has remote history of an SVT which was treated successfully with ablation. Some dizziness with coughing and presyncope but no actual syncope. Allergies Allergy/AdvReac Type Severity Reaction Status Date / Time red dye Allergy Intermediate RED FOOD Verified 09/21/19 13:27 DYE CAUSES SEVERE ASTHMA ATTACK yellow dye Allergy Intermediate YELLOW Verified 09/21/19 13:27 FOOD DYE CAUSES SEVERE ASTHMA ATTACK diphtheria toxoid,fluid Allergy Mild Verified 09/21/19 13:27 tetanus toxoid, adsorbed Allergy Mild Verified 09/21/19 13:27 mold Allergy Unknown ASTHMA Verified 09/21/19 13:27 ATTACK Dust Allergy Unknown ASTHMA Uncoded 09/21/19 13:27 ATTACK Home Medications Home Medications Medication Instructions Recorded Confirmed Type albuterol sulfate 2.5 mg INHALATION QID PRN 07/05/18 10/10/19 History fluticasone furoate-vilanterol 1 inh INHALATION DAILY 07/05/18 10/10/19 History [Breo Ellipta] gabapentin 300 mg PO BID 07/05/18 10/10/19 History melatonin 10 mg PO HS PRN 07/05/18 10/10/19 History pantoprazole [Protonix] 40 mg PO BID 07/05/18 10/10/19 History polyethylene glycol 3350 17 g PO DAILY 07/05/18 10/10/19 History albuterol sulfate 90 mcg/actuation See Rx Instructions .ROUTE 07/15/19 10/10/19 Rx aerosol inhaler .COMPLEX #54 gram losartan 100 mg tablet 100 mg PO DAILY #90 tab 07/29/19 10/10/19 Rx montelukast 10 mg tablet 10 mg PO DAILY #30 tab 08/03/19 10/10/19 Rx cyclobenzaprine 10 mg tablet 10 mg PO TID PRN #90 tab 08/22/19 10/10/19 Rx famotidine 20 mg tablet 20 mg PO DAILY #90 tab 08/23/19 10/10/19 Rx trazodone 100 mg tablet 200 mg PO HS #180 tab 08/23/19 10/10/19 Rx ropinirole 1 mg tablet 1 mg PO DAILY #60 tab 09/09/19 10/10/19 Rx hydrocodone 5 mg-acetaminophen 325 1 tab PO Q8H PRN #60 tab 09/21/19 10/10/19 Rx mg tablet multivitamin-ferrous 1 tab PO DAILY 09/21/19 10/10/19 History fumarate-folic acid 18 mg-400 mcg tablet psyllium husk 0.52 gram capsule 2.6 gm PO DAILY cap 09/21/19 10/10/19 History linaclotide 290 mcg capsule 290 mcg PO DAILY #30 cap 09/26/19 10/10/19 Rx diclofenac sodium 1 % topical gel 2 gm TOP QID #100 gm 09/28/19 10/10/19 Rx meloxicam 15 mg tablet 15 mg PO DAILY #30 tab 09/28/19 10/10/19 Rx prednisone 10 mg PO DIRECTED 10/10/19 10/10/19 History Patient History Medical History Aggressive behavior (Resolved) Alcohol intoxication (Resolved) Anxiety (Chronic) Asthma with exacerbation (Chronic) 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) Bronchitis (Resolved) Contusion of face (Resolved 04/27/11) COPD (chronic obstructive pulmonary disease) Depression (Chronic) Foot contusion (Resolved) Gastroenteritis (Resolved) Mood disorder (Chronic) Family History Other No significant family history Social History Preferred Language: Sammarinese Communication Ability: Effective Corrective Therapy Aide Teacher Required: No Beliefs That Will Affect Care: None marital status: Single Current Living Situation: Alone Other Information That Helps Us Care for You: No Feels Safe at Home: Yes Safety Concerns: Afraid for Self Smoking Status: Never smoker Do You Dip or Chew Tobacco: No ; Second Hand Exposure: No ; Tobacco Cessation Education Requested by Patient: No Hx Alcohol Use: Yes Alcohol type: wine Hx Substance Use: No Review of Systems Review of Systems: All systems reviewed & are unremarkable except as noted in HPI & below No significant swelling in lower extremities. Physical Exam Physical Exam: She is alert and oriented x3. Mood affect appear normal. She answered all questions appropriately. Frequent and forceful coughing. HEENT: Sclerae are anicteric. Pupils are equal and reactive to light and accommodation. Extraocular movements were intact. Tracheotomy scar. Neuro: Cranial nerves intact Neck: Examination of the submandibular region did not reveal any significant lymphadenopathy. Carotids are palpable bilaterally and free of bruits on auscultation. Perhaps some mild elevation in JVD. The thyroid was not enlarged. Lungs: Bronchial breath sounds throughout all lung miranda. Expiratory wheezing noted. Cardiac: The rhythm was regular. S1 and S2 were normal. There are no murmurs on examination. The PMI was not markedly displaced on palpation. Abdomen: The abdomen was soft and nontender. Extremities: Patient has bilateral radial pulses that are equal in intensity. There is no evidence cyanosis or clubbing. There was no evidence of significant peripheral edema bilaterally. Skin: There are no rashes noted on examination today. Results & Data Vital Signs (Past 12 Hours) Vital Signs Temp Pulse Resp BP BP Pulse Ox 10/12/19 11:15 36.6 C 83 18 133/76 97 10/12/19 07:11 36.7 C 114 H 20 136/88 90 10/12/19 07:06 118 H 20 93 10/12/19 03:17 36.8 C 112 H 20 129/85 96 10/12/19 02:17 112 H 16 96 Laboratory Results Abnormal Lab Results 10/11/19 10/11/19 10/11/19 13:58 14:19 16:23 WBC RBC Hgb Hct MCV MCH MCHC RDW Std Deviation RDW Coeff of Joyce Plt Count MPV Immature Gran % (Auto) Neut % (Auto) Lymph % (Auto) [place] % (Auto) Eos % (Auto) Baso % (Auto) Immature Gran # (Auto) Neut # (Auto) Lymph # (Auto) [place] # (Auto) Eos # (Auto) Baso # (Auto) Sodium Potassium Chloride Carbon Dioxide Anion Gap BUN Creatinine Est Cr Clr Drug Dosing Est GFR ( Amer) Est GFR (Non-Af Amer) BUN/Creatinine Ratio Glucose POC Glucose Osmolality Lactate Calcium Phosphorus Magnesium Total Bilirubin 0.4 Direct Bilirubin < 0.1 AST 15 ALT 58 Alkaline Phosphatase 88 Total Creatine Kinase 52 Troponin I < 0.015 Total Protein 7.3 Albumin 3.8 Globulin Albumin/Globulin Ratio Procalcitonin < 0.05 TSH Free T4 Urine Color Urine Appearance Urine pH Ur Specific [place] Urine Protein Urine Glucose (UA) Urine Ketones Urine Blood Urine Nitrite Urine Bilirubin Urine Urobilinogen Ur Leukocyte Esterase Urine Osmolality Nasal Screen MRSA (PCR) Negative 10/11/19 10/11/19 10/11/19 16:27 16:39 16:39 WBC RBC Hgb Hct MCV MCH MCHC RDW Std Deviation RDW Coeff of Joyce Plt Count MPV Immature Gran % (Auto) Neut % (Auto) Lymph % (Auto) [place] % (Auto) Eos % (Auto) Baso % (Auto) Immature Gran # (Auto) Neut # (Auto) Lymph # (Auto) [place] # (Auto) Eos # (Auto) Baso # (Auto) Sodium Potassium Chloride Carbon Dioxide Anion Gap BUN Creatinine Est Cr Clr Drug Dosing Est GFR ( Amer) Est GFR (Non-Af Amer) BUN/Creatinine Ratio Glucose POC Glucose 179 H Osmolality 303 H Lactate 3.4 H* Calcium Phosphorus Magnesium Total Bilirubin Direct Bilirubin AST ALT Alkaline Phosphatase Total Creatine Kinase Troponin I Total Protein Albumin Globulin Albumin/Globulin Ratio Procalcitonin TSH Free T4 Urine Color Urine Appearance Urine pH Ur Specific [place] Urine Protein Urine Glucose (UA) Urine Ketones Urine Blood Urine Nitrite Urine Bilirubin Urine Urobilinogen Ur Leukocyte Esterase Urine Osmolality Nasal Screen MRSA (PCR) 10/11/19 10/11/19 10/11/19 19:02 19:54 21:00 WBC RBC Hgb Hct MCV MCH MCHC RDW Std Deviation RDW Coeff of Joyce Plt Count MPV Immature Gran % (Auto) Neut % (Auto) Lymph % (Auto) [place] % (Auto) Eos % (Auto) Baso % (Auto) Immature Gran # (Auto) Neut # (Auto) Lymph # (Auto) [place] # (Auto) Eos # (Auto) Baso # (Auto) Sodium Potassium Chloride Carbon Dioxide Anion Gap BUN Creatinine Est Cr Clr Drug Dosing Est GFR ( Amer) Est GFR (Non-Af Amer) BUN/Creatinine Ratio Glucose POC Glucose 196 H Osmolality Lactate 2.1 H* Calcium Phosphorus Magnesium Total Bilirubin Direct Bilirubin AST ALT Alkaline Phosphatase Total Creatine Kinase Troponin I Total Protein Albumin Globulin Albumin/Globulin Ratio Procalcitonin TSH Free T4 Urine Color Urine Appearance Urine pH Ur Specific [place] Urine Protein Urine Glucose (UA) Urine Ketones Urine Blood Urine Nitrite Urine Bilirubin Urine Urobilinogen Ur Leukocyte Esterase Urine Osmolality 667 Nasal Screen MRSA (PCR) 10/11/19 10/12/19 10/12/19 21:00 00:02 03:58 WBC RBC Hgb Hct MCV MCH MCHC RDW Std Deviation RDW Coeff of Joyce Plt Count MPV Immature Gran % (Auto) Neut % (Auto) Lymph % (Auto) [place] % (Auto) Eos % (Auto) Baso % (Auto) Immature Gran # (Auto) Neut # (Auto) Lymph # (Auto) [place] # (Auto) Eos # (Auto) Baso # (Auto) Sodium Potassium Chloride Carbon Dioxide Anion Gap BUN Creatinine Est Cr Clr Drug Dosing Est GFR ( Amer) Est GFR (Non-Af Amer) BUN/Creatinine Ratio Glucose POC Glucose 224 H 162 H Osmolality Lactate Calcium Phosphorus Magnesium Total Bilirubin Direct Bilirubin AST ALT Alkaline Phosphatase Total Creatine Kinase Troponin I Total Protein Albumin Globulin Albumin/Globulin Ratio Procalcitonin TSH Free T4 Urine Color Yellow Urine Appearance Clear Urine pH 8.0 H Ur Specific [place] > 1.045 H Urine Protein Negative Urine Glucose (UA) Trace H Urine Ketones Negative Urine Blood Negative Urine Nitrite Negative Urine Bilirubin Negative Urine Urobilinogen Negative Ur Leukocyte Esterase Negative Urine Osmolality Nasal Screen MRSA (PCR) 10/12/19 10/12/19 10/12/19 07:11 07:42 07:42 WBC 9.10 RBC 4.44 Hgb 14.4 Hct 42.2 MCV 95.0 MCH 32.4 MCHC 34.1 RDW Std Deviation 44.4 RDW Coeff of Joyce 12.8 Plt Count 182 MPV 11.2 H Immature Gran % (Auto) 0.3 Neut % (Auto) 89.5 Lymph % (Auto) 7.6 [place] % (Auto) 2.6 Eos % (Auto) 0.0 Baso % (Auto) 0.0 Immature Gran # (Auto) 0.03 H Neut # (Auto) 8.14 H Lymph # (Auto) 0.69 L [place] # (Auto) 0.24 Eos # (Auto) 0.00 Baso # (Auto) 0.00 Sodium 139 Potassium 3.9 Chloride 109 H Carbon Dioxide 21 Anion Gap 9.0 BUN 16 Creatinine 0.76 Est Cr Clr Drug Dosing 82.5 Est GFR ( Amer) 103.1 Est GFR (Non-Af Amer) 88.9 BUN/Creatinine Ratio 21.4 H Glucose 228 H POC Glucose 203 H Osmolality Lactate Calcium 9.1 Phosphorus 2.8 Magnesium 2.4 Total Bilirubin 0.5 Direct Bilirubin AST 15 ALT 44 Alkaline Phosphatase 73 Total Creatine Kinase Troponin I Total Protein 6.9 Albumin 3.5 Globulin 3.4 Albumin/Globulin Ratio 1.0 Procalcitonin TSH Free T4 Urine Color Urine Appearance Urine pH Ur Specific [place] Urine Protein Urine Glucose (UA) Urine Ketones Urine Blood Urine Nitrite Urine Bilirubin Urine Urobilinogen Ur Leukocyte Esterase Urine Osmolality Nasal Screen MRSA (PCR) 10/12/19 10/12/19 10/12/19 07:50 07:52 11:42 WBC RBC Hgb Hct MCV MCH MCHC RDW Std Deviation RDW Coeff of Joyce Plt Count MPV Immature Gran % (Auto) Neut % (Auto) Lymph % (Auto) [place] % (Auto) Eos % (Auto) Baso % (Auto) Immature Gran # (Auto) Neut # (Auto) Lymph # (Auto) [place] # (Auto) Eos # (Auto) Baso # (Auto) Sodium Potassium Chloride Carbon Dioxide Anion Gap BUN Creatinine Est Cr Clr Drug Dosing Est GFR ( Amer) Est GFR (Non-Af Amer) BUN/Creatinine Ratio Glucose POC Glucose 174 H Osmolality Lactate 2.9 H* Calcium Phosphorus Magnesium Total Bilirubin Direct Bilirubin AST ALT Alkaline Phosphatase Total Creatine Kinase Troponin I Total Protein Albumin Globulin Albumin/Globulin Ratio Procalcitonin TSH 0.060 L Free T4 1.21 Urine Color Urine Appearance Urine pH Ur Specific [place] Urine Protein Urine Glucose (UA) Urine Ketones Urine Blood Urine Nitrite Urine Bilirubin Urine Urobilinogen Ur Leukocyte Esterase Urine Osmolality Nasal Screen MRSA (PCR) Diagnostic Findings CT scan performed during this admission suggest interstitial lung disease. Initial chest x-ray suggested pulmonary edema ECG Additional Comments: EKG demonstrates sinus tachycardia PG Care Time/CCT Total # of Minutes Spent Total Time Spent with Patient: Total time spent is greater than 50% in coordination of care (as documented) at patient's floor/unit and/or counseling patient: Coding Level of Care Code 71568 Inpt Consult Level 4 Diagnoses Tachycardia R00.0 Chest pain R07.9 Dyspnea R06.00
[2019-10-12] MEDS: HYDROCODONE/ACETAMOPHEN 5/325MG TAB PO PRN ×2 (12:55→19:13)
[2019-10-12] MEDS: predniSONE 20 MG TAB PO SCH (12:55)
--- NOTE | 2019-10-12 16:16 | Hospitalist Progress Note ---
Date of Service October 12, 2019 Assessment & Plan (1) Acute and chronic respiratory failure with hypoxia: - Possibly related to COPD/Pneumonia. - Currently requiring 2L via NC (home requirements) (2) Sepsis: - HR 110-120's, lactic acidosis, leukocytosis noted on admission; no clear source has been identified, ?related to pulmonary issue. - BC negative (prelim); U/a negative. - Chest CT showed chronic interstitial markings, negative for acute abnormalities. - Received adequate IV fluid hydration. (3) Lactic acidosis: - Lactic acid level slowly improved -- possibly underlying infection vs. dehydration. - Repeat level at 5 pm this evening. (4) Tachycardia: - HR 110-120s on monitor; no improvement over last 24 hours. - Limited 2D echo with no acute abnormalities. - H/o atrioventricular stefany recurrent tachycardia s/p ablation in the past. (5) Chest pain: - C/o sternal chest pain; this pain has been chronic for her, possibly related to GERD vs. gastric ulcer. - Trops and EKG were negative. - On PPI BID and H2RA daily; consulted GI, will need to arrange EGD with [facility] as outpt. - Cardiology consulted, is atypical chest pain not likely related to cardiac source. (6) COPD exacerbation: - Possible acute exacerbation of COPD. Completed 8-9 days of Augmentin at home along with 2-3 days Prednisone. - Continue Ceftriaxone (increased to 2 gm IV daily) and Azithromycin for empiric coverage. - Convert Solu-medrol IV to Prednisone 40 mg daily. - Xopenex q6hrWA; continue home Breo-Ellipta. - Mucinex 600 mg BID. (7) Asthma with exacerbation: - Continue home inhalers. (8) Pulmonary HTN: - H/o moderate pulmonary HTN. - Cardiology consulted, would require cardiac cath. Will need to arrange for outpatient follow up with cardiology. - Continue 2L via NC. (9) Epigastric pain: - Related to GERD vs. gastric ulcer. - GI consulted, plan for outpatient EGD with [facility] physician. - Continue home PPI BID and Famotidine daily. (10) Mood disorder: - Continue Trazodone as prescribed. (11) Chronic constipation: - Pt. reports she uses enemas at home for severe constipation. - CT A/P showed moderate fecal retention. - Continue Linzess, Metamucil, Miralax as prescribed. Most recent BM on 10/11. (12) HTN (hypertension): - Continue Losartan as prescribed. - BP is stable. (13) GERD (gastroesophageal reflux disease): - PPI BID; Famotidine 20 mg daily. - Maalox prn. (14) Restless leg syndrome: - Continue Requip as prescribed. (15) Type II diabetes mellitus: - Hgb A1C is 6.9. - BG has been elevated -- steroid induced hyperglycemia. - Pharmacy consulted for glycemic management. (16) Abnormal TSH: - TSH is 0.06 -- may be contributing to sinus tachycardia. - Recommend repeat TFTs in 3-4 weeks. 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 (18) History of pulmonary embolism: - In 2008; Lovenox ppx as inpatient. (19) History of ETOH abuse: - H/o ETOH intoxication. Pt. reports drinking 1 bottle of wine and a few mixed drinks/week. - AWSS protocol. - Continue Thiamine and Folic acid replacement. (20) DVT prophylaxis: - SCDs; Lovenox daily. Dispo: Med/surg with tele. Subjective Pt. reports SOB is slightly improved. Remains on baseline oxygen. Is coughing up sputum after taking Mucinex. Chest discomfort is improving, has ongoing epigastric discomfort. Cardiology and GI both consulted. Review of Systems Review of Systems: All systems reviewed & are unremarkable except as noted in HPI & below Constitutional: + fatigue and + weakness; no fever, no chills and no anorexia Respiratory: + cough, + dyspnea, + dyspnea on exertion and + sputum production Cardiovascular: + chest pain; no radiating jaw, neck or arm pain, no palpi tations and no edema Gastrointestinal: + abdominal pain; no nausea, no vomiting and no constipation Genitourinary: no difficulty urinating Musculoskeletal: no back pain and no joint pain Integumentary: no non-healing lesions Physical Exam Physical Exam: General: No acute distress. HEENT: NC/AT; PERRLA with EOMI; [place] conjunctiva, MMM. No erythema of posterior pharynx Neck: Supple and nontender Cardiac: Tachycardic Lungs: on 2L via NC; mild expiratory wheezing in all lung miranda. Abdomen: Bowel normoactive X 4; Nontender to palpation Extremities: Warm. No edema present Neuro: No focal weakness Skin: No rash Results & Data Vital Signs (Past 12 Hours) Vital Signs Temp Pulse Resp BP BP Pulse Ox 10/12/19 15:52 36.7 C 111 H 18 152/81 H 94 10/12/19 13:23 78 20 95 10/12/19 11:15 36.6 C 83 18 133/76 97 10/12/19 07:11 36.7 C 114 H 20 136/88 90 10/12/19 07:06 118 H 20 93 Laboratory Results 10/12/19 10/12/19 10/12/19 Range/Units 11:42 07:52 07:50 WBC (4.8-10.8) K/uL RBC (4.2-5.4) M/uL Hgb (12.0-16.0) g/dL Hct (37-47) % MCV (80-100) fL MCH (25-34) pg MCHC (32-36) g/dL RDW Std Deviation (36.4-46.3) fL RDW Coeff of Joyce (11.5-14.5) % Plt Count (130-400) K/uL MPV (7.4-10.4) fL Immature Gran % (Auto) % Neut % (Auto) % Lymph % (Auto) % [place] % (Auto) % Eos % (Auto) % Baso % (Auto) % Immature Gran # (Auto) (0.00-0.02) K/uL Neut # (Auto) (1.4-6.5) K/uL Lymph # (Auto) (1.2-3.4) K/uL [place] # (Auto) (0.11-0.59) K/uL Eos # (Auto) (0-0.5) K/uL Baso # (Auto) (0-0.2) K/uL Sodium (136-145) mmol/L Potassium (3.5-5.1) mmol/L Chloride (98-107) mmol/L Carbon Dioxide (21-32) mmol/L Anion Gap (3-11) BUN (7-18) mg/dl Creatinine (0.6-1.2) mg/dl Est Cr Clr Drug Dosing ml/min Est GFR ( Amer) Est GFR (Non-Af Amer) BUN/Creatinine Ratio (10-20) Glucose (70-99) mg/dl POC Glucose 174 H (70-99) mg/dl Osmolality (280-300) mOsm/kg Lactate 2.9 H* (0.4-2.0) mmol/L Calcium (8.5-10.1) mg/dl Phosphorus (2.5-4.9) mg/dl Magnesium (1.8-2.4) mg/dl Total Bilirubin (0.2-1) mg/dl AST (15-37) U/L ALT (12-78) U/L Alkaline Phosphatase (45-117) U/L Total Protein (6.4-8.2) gm/dl Albumin (3.4-5.0) gm/dl Globulin (2.5-4.0) gm/dl Albumin/Globulin Ratio (0.9-2) Procalcitonin (0-0.5) ng/ml TSH 0.060 L (0.300-4.500) uIu/ml Free T4 1.21 (0.8-1.6) ng/dl Urine Color Urine Appearance (Clear) Urine pH (4.5-7.5) Ur Specific [place] (1.000-1.030) Urine Protein (Negative) Urine Glucose (UA) (Negative) Urine Ketones (Negative) Urine Blood (Negative) Urine Nitrite (Negative) Urine Bilirubin (Negative) Urine Urobilinogen (Negative) Ur Leukocyte Esterase (Negative) Urine Osmolality (500-800) mOsm/kg 10/12/19 10/12/19 10/12/19 Range/Units 07:42 07:42 07:11 WBC 9.10 (4.8-10.8) K/uL RBC 4.44 (4.2-5.4) M/uL Hgb 14.4 (12.0-16.0) g/dL Hct 42.2 (37-47) % MCV 95.0 (80-100) fL MCH 32.4 (25-34) pg MCHC 34.1 (32-36) g/dL RDW Std Deviation 44.4 (36.4-46.3) fL RDW Coeff of Joyce 12.8 (11.5-14.5) % Plt Count 182 (130-400) K/uL MPV 11.2 H (7.4-10.4) fL Immature Gran % (Auto) 0.3 % Neut % (Auto) 89.5 % Lymph % (Auto) 7.6 % [place] % (Auto) 2.6 % Eos % (Auto) 0.0 % Baso % (Auto) 0.0 % Immature Gran # (Auto) 0.03 H (0.00-0.02) K/uL Neut # (Auto) 8.14 H (1.4-6.5) K/uL Lymph # (Auto) 0.69 L (1.2-3.4) K/uL [place] # (Auto) 0.24 (0.11-0.59) K/uL Eos # (Auto) 0.00 (0-0.5) K/uL Baso # (Auto) 0.00 (0-0.2) K/uL Sodium 139 (136-145) mmol/L Potassium 3.9 (3.5-5.1) mmol/L Chloride 109 H (98-107) mmol/L Carbon Dioxide 21 (21-32) mmol/L Anion Gap 9.0 (3-11) BUN 16 (7-18) mg/dl Creatinine 0.76 (0.6-1.2) mg/dl Est Cr Clr Drug Dosing 82.5 ml/min Est GFR ( Amer) 103.1 Est GFR (Non-Af Amer) 88.9 BUN/Creatinine Ratio 21.4 H (10-20) Glucose 228 H (70-99) mg/dl POC Glucose 203 H (70-99) mg/dl Osmolality (280-300) mOsm/kg Lactate (0.4-2.0) mmol/L Calcium 9.1 (8.5-10.1) mg/dl Phosphorus 2.8 (2.5-4.9) mg/dl Magnesium 2.4 (1.8-2.4) mg/dl Total Bilirubin 0.5 (0.2-1) mg/dl AST 15 (15-37) U/L ALT 44 (12-78) U/L Alkaline Phosphatase 73 (45-117) U/L Total Protein 6.9 (6.4-8.2) gm/dl Albumin 3.5 (3.4-5.0) gm/dl Globulin 3.4 (2.5-4.0) gm/dl Albumin/Globulin Ratio 1.0 (0.9-2) Procalcitonin (0-0.5) ng/ml TSH (0.300-4.500) uIu/ml Free T4 (0.8-1.6) ng/dl Urine Color Urine Appearance (Clear) Urine pH (4.5-7.5) Ur Specific [place] (1.000-1.030) Urine Protein (Negative) Urine Glucose (UA) (Negative) Urine Ketones (Negative) Urine Blood (Negative) Urine Nitrite (Negative) Urine Bilirubin (Negative) Urine Urobilinogen (Negative) Ur Leukocyte Esterase (Negative) Urine Osmolality (500-800) mOsm/kg 10/12/19 10/12/19 10/11/19 Range/Units 03:58 00:02 21:00 WBC (4.8-10.8) K/uL RBC (4.2-5.4) M/uL Hgb (12.0-16.0) g/dL Hct (37-47) % MCV (80-100) fL MCH (25-34) pg MCHC (32-36) g/dL RDW Std Deviation (36.4-46.3) fL RDW Coeff of Joyce (11.5-14.5) % Plt Count (130-400) K/uL MPV (7.4-10.4) fL Immature Gran % (Auto) % Neut % (Auto) % Lymph % (Auto) % [place] % (Auto) % Eos % (Auto) % Baso % (Auto) % Immature Gran # (Auto) (0.00-0.02) K/uL Neut # (Auto) (1.4-6.5) K/uL Lymph # (Auto) (1.2-3.4) K/uL [place] # (Auto) (0.11-0.59) K/uL Eos # (Auto) (0-0.5) K/uL Baso # (Auto) (0-0.2) K/uL Sodium (136-145) mmol/L Potassium (3.5-5.1) mmol/L Chloride (98-107) mmol/L Carbon Dioxide (21-32) mmol/L Anion Gap (3-11) BUN (7-18) mg/dl Creatinine (0.6-1.2) mg/dl Est Cr Clr Drug Dosing ml/min Est GFR ( Amer) Est GFR (Non-Af Amer) BUN/Creatinine Ratio (10-20) Glucose (70-99) mg/dl POC Glucose 162 H 224 H (70-99) mg/dl Osmolality (280-300) mOsm/kg Lactate (0.4-2.0) mmol/L Calcium (8.5-10.1) mg/dl Phosphorus (2.5-4.9) mg/dl Magnesium (1.8-2.4) mg/dl Total Bilirubin (0.2-1) mg/dl AST (15-37) U/L ALT (12-78) U/L Alkaline Phosphatase (45-117) U/L Total Protein (6.4-8.2) gm/dl Albumin (3.4-5.0) gm/dl Globulin (2.5-4.0) gm/dl Albumin/Globulin Ratio (0.9-2) Procalcitonin (0-0.5) ng/ml TSH (0.300-4.500) uIu/ml Free T4 (0.8-1.6) ng/dl Urine Color Yellow Urine Appearance Clear (Clear) Urine pH 8.0 H (4.5-7.5) Ur Specific [place] > 1.045 H (1.000-1.030) Urine Protein Negative (Negative) Urine Glucose (UA) Trace H (Negative) Urine Ketones Negative (Negative) Urine Blood Negative (Negative) Urine Nitrite Negative (Negative) Urine Bilirubin Negative (Negative) Urine Urobilinogen Negative (Negative) Ur Leukocyte Esterase Negative (Negative) Urine Osmolality (500-800) mOsm/kg 10/11/19 10/11/19 10/11/19 Range/Units 21:00 19:54 19:02 WBC (4.8-10.8) K/uL RBC (4.2-5.4) M/uL Hgb (12.0-16.0) g/dL Hct (37-47) % MCV (80-100) fL MCH (25-34) pg MCHC (32-36) g/dL RDW Std Deviation (36.4-46.3) fL RDW Coeff of Joyce (11.5-14.5) % Plt Count (130-400) K/uL MPV (7.4-10.4) fL Immature Gran % (Auto) % Neut % (Auto) % Lymph % (Auto) % [place] % (Auto) % Eos % (Auto) % Baso % (Auto) % Immature Gran # (Auto) (0.00-0.02) K/uL Neut # (Auto) (1.4-6.5) K/uL Lymph # (Auto) (1.2-3.4) K/uL [place] # (Auto) (0.11-0.59) K/uL Eos # (Auto) (0-0.5) K/uL Baso # (Auto) (0-0.2) K/uL Sodium (136-145) mmol/L Potassium (3.5-5.1) mmol/L Chloride (98-107) mmol/L Carbon Dioxide (21-32) mmol/L Anion Gap (3-11) BUN (7-18) mg/dl Creatinine (0.6-1.2) mg/dl Est Cr Clr Drug Dosing ml/min Est GFR ( Amer) Est GFR (Non-Af Amer) BUN/Creatinine Ratio (10-20) Glucose (70-99) mg/dl POC Glucose 196 H (70-99) mg/dl Osmolality (280-300) mOsm/kg Lactate 2.1 H* (0.4-2.0) mmol/L Calcium (8.5-10.1) mg/dl Phosphorus (2.5-4.9) mg/dl Magnesium (1.8-2.4) mg/dl Total Bilirubin (0.2-1) mg/dl AST (15-37) U/L ALT (12-78) U/L Alkaline Phosphatase (45-117) U/L Total Protein (6.4-8.2) gm/dl Albumin (3.4-5.0) gm/dl Globulin (2.5-4.0) gm/dl Albumin/Globulin Ratio (0.9-2) Procalcitonin (0-0.5) ng/ml TSH (0.300-4.500) uIu/ml Free T4 (0.8-1.6) ng/dl Urine Color Urine Appearance (Clear) Urine pH (4.5-7.5) Ur Specific [place] (1.000-1.030) Urine Protein (Negative) Urine Glucose (UA) (Negative) Urine Ketones (Negative) Urine Blood (Negative) Urine Nitrite (Negative) Urine Bilirubin (Negative) Urine Urobilinogen (Negative) Ur Leukocyte Esterase (Negative) Urine Osmolality 667 (500-800) mOsm/kg 10/11/19 10/11/19 10/11/19 Range/Units 16:39 16:39 16:27 WBC (4.8-10.8) K/uL RBC (4.2-5.4) M/uL Hgb (12.0-16.0) g/dL Hct (37-47) % MCV (80-100) fL MCH (25-34) pg MCHC (32-36) g/dL RDW Std Deviation (36.4-46.3) fL RDW Coeff of Joyce (11.5-14.5) % Plt Count (130-400) K/uL MPV (7.4-10.4) fL Immature Gran % (Auto) % Neut % (Auto) % Lymph % (Auto) % [place] % (Auto) % Eos % (Auto) % Baso % (Auto) % Immature Gran # (Auto) (0.00-0.02) K/uL Neut # (Auto) (1.4-6.5) K/uL Lymph # (Auto) (1.2-3.4) K/uL [place] # (Auto) (0.11-0.59) K/uL Eos # (Auto) (0-0.5) K/uL Baso # (Auto) (0-0.2) K/uL Sodium (136-145) mmol/L Potassium (3.5-5.1) mmol/L Chloride (98-107) mmol/L Carbon Dioxide (21-32) mmol/L Anion Gap (3-11) BUN (7-18) mg/dl Creatinine (0.6-1.2) mg/dl Est Cr Clr Drug Dosing ml/min Est GFR ( Amer) Est GFR (Non-Af Amer) BUN/Creatinine Ratio (10-20) Glucose (70-99) mg/dl POC Glucose 179 H (70-99) mg/dl Osmolality 303 H (280-300) mOsm/kg Lactate 3.4 H* (0.4-2.0) mmol/L Calcium (8.5-10.1) mg/dl Phosphorus (2.5-4.9) mg/dl Magnesium (1.8-2.4) mg/dl Total Bilirubin (0.2-1) mg/dl AST (15-37) U/L ALT (12-78) U/L Alkaline Phosphatase (45-117) U/L Total Protein (6.4-8.2) gm/dl Albumin (3.4-5.0) gm/dl Globulin (2.5-4.0) gm/dl Albumin/Globulin Ratio (0.9-2) Procalcitonin (0-0.5) ng/ml TSH (0.300-4.500) uIu/ml Free T4 (0.8-1.6) ng/dl Urine Color Urine Appearance (Clear) Urine pH (4.5-7.5) Ur Specific [place] (1.000-1.030) Urine Protein (Negative) Urine Glucose (UA) (Negative) Urine Ketones (Negative) Urine Blood (Negative) Urine Nitrite (Negative) Urine Bilirubin (Negative) Urine Urobilinogen (Negative) Ur Leukocyte Esterase (Negative) Urine Osmolality (500-800) mOsm/kg 10/11/19 Range/Units 16:23 WBC (4.8-10.8) K/uL RBC (4.2-5.4) M/uL Hgb (12.0-16.0) g/dL Hct (37-47) % MCV (80-100) fL MCH (25-34) pg MCHC (32-36) g/dL RDW Std Deviation (36.4-46.3) fL RDW Coeff of Joyce (11.5-14.5) % Plt Count (130-400) K/uL MPV (7.4-10.4) fL Immature Gran % (Auto) % Neut % (Auto) % Lymph % (Auto) % [place] % (Auto) % Eos % (Auto) % Baso % (Auto) % Immature Gran # (Auto) (0.00-0.02) K/uL Neut # (Auto) (1.4-6.5) K/uL Lymph # (Auto) (1.2-3.4) K/uL [place] # (Auto) (0.11-0.59) K/uL Eos # (Auto) (0-0.5) K/uL Baso # (Auto) (0-0.2) K/uL Sodium (136-145) mmol/L Potassium (3.5-5.1) mmol/L Chloride (98-107) mmol/L Carbon Dioxide (21-32) mmol/L Anion Gap (3-11) BUN (7-18) mg/dl Creatinine (0.6-1.2) mg/dl Est Cr Clr Drug Dosing ml/min Est GFR ( Amer) Est GFR (Non-Af Amer) BUN/Creatinine Ratio (10-20) Glucose (70-99) mg/dl POC Glucose (70-99) mg/dl Osmolality (280-300) mOsm/kg Lactate (0.4-2.0) mmol/L Calcium (8.5-10.1) mg/dl Phosphorus (2.5-4.9) mg/dl Magnesium (1.8-2.4) mg/dl Total Bilirubin (0.2-1) mg/dl AST (15-37) U/L ALT (12-78) U/L Alkaline Phosphatase (45-117) U/L Total Protein (6.4-8.2) gm/dl Albumin (3.4-5.0) gm/dl Globulin (2.5-4.0) gm/dl Albumin/Globulin Ratio (0.9-2) Procalcitonin < 0.05 (0-0.5) ng/ml TSH (0.300-4.500) uIu/ml Free T4 (0.8-1.6) ng/dl Urine Color Urine Appearance (Clear) Urine pH (4.5-7.5) Ur Specific [place] (1.000-1.030) Urine Protein (Negative) Urine Glucose (UA) (Negative) Urine Ketones (Negative) Urine Blood (Negative) Urine Nitrite (Negative) Urine Bilirubin (Negative) Urine Urobilinogen (Negative) Ur Leukocyte Esterase (Negative) Urine Osmolality (500-800) mOsm/kg PG Care Time/CCT Total # of Minutes Spent Total Time Spent with Patient: Total time spent is greater than 50% in coordination of care (as documented) at patient's floor/unit and/or counseling p atient: Coding Level of Care Code 00528 Subseq Hosp Care Lvl 3 Diagnoses Acute and chronic respiratory failure with hypoxia J96.21 Sepsis A41.9 Lactic acidosis E87.2 Tachycardia R00.0 Chest pain R07.9 COPD exacerbation J44.1 Asthma with exacerbation J45.901 Pulmonary HTN I27.20 Epigastric pain R10.13 Mood disorder F39 Chronic constipation K59.09 HTN (hypertension) I10 GERD (gastroesophageal reflux disease) K21.9 Restless leg syndrome G25.81 Type II diabetes mellitus E11.9 Abnormal TSH R79.89 History of Guillain-[place] syndrome Z86.69 History of pulmonary embolism Z86.711 History of ETOH abuse F10.11 DVT prophylaxis Z29.9
--- NOTE | 2019-10-12 17:28 | Electrocardiogram Report ---
Test Reason : Blood Pressure : / mmHG Vent. Rate : 111 BPM Atrial Rate : 111 BPM P-R Int : 150 ms QRS Dur : 078 ms QT Int : 334 ms P-R-T Axes : 031 -24 042 degrees QTc Int : 454 ms Sinus tachycardia Inferior infarct (cited on or before 06-MAY-2014) Poor R wave progression, consider anterior RI vs. lead placement vs. LVH Abnormal ECG Confirmed by Tyrell Ayon ([id number] on 10/12/2019 5:27:47 PM Referred By: REFERRED SELF Confirmed By:Lux Ayon
[2019-10-12] MEDS: TRAZODONE HCL 100 MG TAB PO SCH (21:14)
[2019-10-12] MEDS: guaiFENesin 600 MG TABCR PO SCH (21:14)
[2019-10-12] MEDS: AZITHROMYCIN 250 MG in DEXTROSE 5% 250 ML IV SCH (21:16)
[2019-10-12] MEDS: MONTELUKAST SODIUM 10 MG TABLET PO SCH (21:18)
[2019-10-13] MEDS ORDERED: GUAIFENESIN/DEXTROM SYRUP 100MG/10MG 5ML UDC PO ONE (00:56)
[2019-10-13] MEDS: LEVALBUTEROL HCL 0.63 MG/3 ML NEB NEB SCH ×3 (07:25→13:15)
[2019-10-13] MEDS: INSULIN ASPART 100 UNITS/ML 3 ML PEN SC SCH ×2 (08:51→12:09)
[2019-10-13] MEDS: ROPINIROLE HCL 1 MG TABLET PO SCH (08:53)
[2019-10-13] MEDS: FLUTICASONE/VILANTEROL 100/25MCG 14 PUFFS/INHALER INH SCH (08:53)
[2019-10-13] MEDS: THIAMINE HCL 100 MG TAB PO SCH (08:53)
[2019-10-13] MEDS: predniSONE 20 MG TAB PO SCH (08:53)
[2019-10-13] MEDS: CEROVITE ADV FORMULA TAB PO SCH (08:53)
[2019-10-13] MEDS: LINACLOTIDE 72 MCG CAPSULE PO SCH (08:53)
[2019-10-13] MEDS: FAMOTIDINE 20 MG TAB PO SCH (08:53)
[2019-10-13] MEDS: LOSARTAN POTASSIUM 50 MG TAB PO SCH (08:54)
[2019-10-13] MEDS: GABAPENTIN 300 MG CAP PO SCH (08:54)
[2019-10-13] MEDS: ENOXAPARIN INJ 40 MG/0.4 ML SYR SQ SCH (08:54)
[2019-10-13] MEDS: PANTOprazole 40 MG TAB PO SCH (08:54)
[2019-10-13] MEDS: guaiFENesin 600 MG TABCR PO SCH (08:54)
[2019-10-13] MEDS: FOLIC ACID 1 MG TAB PO SCH (08:54)
[2019-10-13] MEDS: PSYLLIUM 58.6% POWDER PACKET PO SCH (08:54)
[2019-10-13] MEDS: HYDROCODONE/ACETAMOPHEN 5/325MG TAB PO PRN (08:59)
[2019-10-13] MEDS: CYCLOBENZAPRINE HCL 10 MG TAB PO PRN (08:59)
[2019-10-13] MEDS: POLYETHYLENE (MIRALAX) 17 GM PACK PO SCH (08:59)
[2019-10-13] MEDS ORDERED: INSULIN HUMAN NPH SC SCH (09:00)
[2019-10-13 09:23] LABS: Hematocrit (blood only) 44.1 % (37-47); Hemoglobin 15.2 g/dL (12.0-16.0); Mean Corpuscular Hgb Conc 34.5 g/dL (32-36); Mean Corpuscular Volume 95.9 fL (80-100); Mean Platelet Volume 10.9 fL (7.4-10.4); Platelet Count 168 K/uL (130-400); RDW Standard Deviation 44.9 fL (36.4-46.3); White Blood Count 8.05 K/uL (4.8-10.8)
[2019-10-13 09:41] LABS: BUN Creatinine Ratio 28.1 (10-20); Creatinine Clr Calc Pharmacy 83.6 ml/min; Est GFR (African American) 104.7; Est GFR (Non-African American) 90.4; Potassium 3.8 mmol/L (3.5-5.1)
[2019-10-13] MEDS ORDERED: cefTRIAXone SODIUM 2,000 MG in DEXTROSE 5% 50 ML IV SCH (11:00)
--- NOTE | 2019-10-13 13:52 | Discharge Summary ---
Date of Service October 13, 2019 Admission HPI Per Admitting Provider 54 y/o female presented to the ED with a 5 day history of increasing SOB. She was placed on Augmentin and prednisone for the previous 2 days, but continued to worsen. She reports having COPD and Asthma. No F/C or diarrhea. + non- productive cough, chest pain with coughing, and N/V. She uses oxygen at 2L chronically. Primary Care Provider: Tyrell Mancini MD Admission Exam Per Admitting Provider General- adult female in mild distress from SOB. Head- atraumatic Eyes- PERRL, EOMI, anicteric ENT- oropharynx clear Neck- supple, no JVD, no adenopathy, no thyromegaly. Lungs- + inspiratory and expiratory wheezes b/l. Heart- regular rhythm; no murmur, no gallop, no rub appreciated Abdomen- normal bowel sounds, soft, nontender. Extremities- no pretibial edema, no calf tenderness; peripheral pulses intact Neuro- alert, oriented x 3; PERRL, EOMI; career development associate II-XII grossly intact, non-focal. Skin- warm & dry Principal Diagnosis COPD Exacerbation Discharge Exam General: No acute distress. HEENT: NC/AT; PERRLA with EOMI; [place] conjunctiva, MMM. No erythema of posterior pharynx Neck: Supple and nontender Cardiac: Tachycardic, HR 100's. Lungs: on 2L via NC; mild expiratory wheeze in LLL. Abdomen: Bowel normoactive X 4; Nontender to palpation Extremities: Warm. No edema present Neuro: No focal weakness Skin: No rash Discharge Data Allergies Allergy/AdvReac Type Severity Reaction Status Date / Time red dye Allergy Intermediate RED FOOD Verified 09/21/19 13:27 DYE CAUSES SEVERE ASTHMA ATTACK yellow dye Allergy Intermediate YELLOW Verified 09/21/19 13:27 FOOD DYE CAUSES SEVERE ASTHMA ATTACK diphtheria toxoid,fluid Allergy Mild Verified 09/21/19 13:27 tetanus toxoid, adsorbed Allergy Mild Verified 09/21/19 13:27 mold Allergy Unknown ASTHMA Verified 09/21/19 13:27 ATTACK Dust Allergy Unknown ASTHMA Uncoded 09/21/19 13:27 ATTACK Consultations 10/11/19 00:04 ED Decision to Admit Stat 10/12/19 04:31 Consult Patient Rep / Service Excellence [Consult Patient Services] Routine 10/12/19 08:08 Consult Gastroenterology Routine 10/12/19 08:46 Consult Cardiology Routine Ordered Studies CXR 10/1010/11/19 02:07 CT chest wo con Urgent 10/11/19 13:51 CT abd pelvis oral and IV con [facility] Hospital Course (1) Acute and chronic respiratory failure with hypoxia: Possibly related to COPD/Pneumonia. On 2L via NC -- home requirements. Pt. did not have portable oxygen tank at discharge; encouraged her to wait until new tank was delivered but she preferred to shrimp picker oxygen tank at supplier in [place], [place] prior to driving back to her home. (2) Sepsis: HR 110-120's, lactic acidosis, leukocytosis noted on admission; no clear source has been identified, ?related to pulmonary issue. BC negative (prelim); U/a negative. Chest CT showed chronic interstitial markings, negative for acute abnormalities. Received IV fluid hydration. (3) Lactic acidosis: Lactic acid level slowly improved -- possibly underlying infection vs. dehydration. Most recent level was 1.9. (4) Tachycardia: Remained tachycardic on monitor. HR 110-120's. Limited 2D echo with no acute abnormalities. H/o atrioventricular stefany recurrent tachycardia s/p ablation in the past. May be related to hyperthyroidism (TSH was 0.06) -- discuss with PCP. (5) Chest pain: C/o sternal chest pain; this pain has been chronic for her, possibly related to GERD vs. gastric ulcer. Trops and EKG were negative. On PPI BID and H2RA daily; consulted GI, will need to arrange EGD with [facility] as outpt. Cardiology consulted, is atypical chest pain not likely related to cardiac source. Chest pain was improving at time of discharge. (6) COPD exacerbation: Possible acute exacerbation of COPD. Completed 8-9 days of Augmentin at home along with 2-3 days Prednisone. Received (increased to 2 gm IV daily) and Azithromycin for empiric coverage. Convert to PO Ceftin and Azithromycin as outpatient. Converted Solu-medrol IV to Prednisone 40 mg daily. Will complete 4 day taper. Xopenex q6hrWA; continued home Breo-Ellipta. Mucinex 600 mg BID. (7) Asthma with exacerbation: Continued home inhalers. (8) Pulmonary HTN: H/o moderate pulmonary HTN. Cardiology consulted, would require cardiac cath. Will arrange for outpatient follow up with cardiology. 2L via [place]. (9) Epigastric pain: Related to GERD vs. gastric ulcer. GI consulted, plan for outpatient EGD with [facility] physician. Continued home PPI BID and Famotidine daily. (10) Mood disorder: Continued Trazodone as prescribed. (11) Chronic constipation: Pt. reports she uses enemas at home for severe constipation. CT A/P showed moderate fecal retention. Continued Linzess, Metamucil, Miralax as prescribed. (12) HTN (hypertension): Continued Losartan as prescribed. (13) GERD (gastroesophageal reflux disease): PPI BID; Famotidine 20 mg daily. Maalox prn. (14) Restless leg syndrome: Continuef Requip as prescribed. (15) Type II diabetes mellitus: Hgb A1C is 6.9. BG has been elevated -- steroid induced hyperglycemia. Pharmacy consulted for glycemic management. Start Metformin XR 500 mg daily at discharge; discuss med with PCP. (16) Abnormal TSH: TSH is 0.06 -- may be contributing to sinus tachycardia. Recommend repeat TFTs in 3-4 weeks. 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 (18) History of pulmonary embolism: In 2008; Lovenox ppx as inpatient. (19) History of ETOH abuse: H/o ETOH intoxication. Pt. reports drinking 1 bottle of wine and a few mixed drinks/week. AWSS protocol. Thiamine and Folic acid replacement. (20) DVT prophylaxis: SCDs; Lovenox daily. Discharged to home on 10/13/19. Total Time Total Time Spent Total Time Spent (In Minutes): >30 minutes Total Time Includes: Examination of the Patient, Discharge Planning, Medication Reconciliation, Communication With Other Providers and Other Discharge Plan Discharge Items Patient Disposition: Home - Self-Care Reason For Visit: COPD EXACERBATION Discharge Diagnosis: COPD Exacerbation, Sepsis, Lactic Acidosis, Sinus Tachycardia Condition on Discharge: Fair Goals: You have been hospitalized for an acute medical problem. During your stay at [facility], we have made an effort to correct the problem that brought you to the hospital while keeping you as comfortable as possible. Medications were used to bring your condition under control and your discharge instructions will include directions for any medications you should take after leaving the hospital. Please make sure you see your Primary Care Provider as part of your follow up plan. Activity: As commented below Exercise/Sports: Gradually increase as tolerated Non-emergency contact: Primary Care Provider, Rat Exterminator and Gastroe nterologist Call non-emergency contact if: you have any medication questions, your symptoms worsen and you have a fever Follow-up/Referrals: Rupal Castillo [Nurse Practitioner] - (Rupal ANDRADE with [facility] is arranging for you to have an EGD performed by one of their gastroenterologists. *A nurse from this office will contact you with the details. If you have any questions, call the office at [phone].) Giovanni Lima PA-C [Physician Quality Control Analyst] - 10/18/19 11:00 am (Please, follow up with Fei Lima PA-C on ThursdayOctober 18 at 11:00 am. *THIS APPOINTMENT WILL BE IN THE [place] OFFICE. If you need to change this appointment, call the office at [phone].) Uvaldo Mancini MD [Primary Care Provider] - 10/17/19 11:00 am (Please, follow up at Dr. Mancini's office with his associate, Terri Walsh PA-C, on ThursdayOctober 17 at 11:00 am. *If you need to change this appointment, call their office at [phone].) Mayra Hazel PA-C [Physician Quality Control Analyst] - 10/31/19 12:30 pm (Please, follow up at [facility] Office with Mayra Hazel PA-C on ThursdayOctober 31 at 12:30 pm. *The office is located in [address] of [facility], [facility]. If you need to change this appointment, call the office at [phone].) Diet: Carb Consistent or DM2 Addtl Attending Provider Instructions: 1. Sepsis/lactic acidosis possibly related to dehydration & COPD exacerbation * Please continue to drink plenty of fluids at home -- at least 10 glasses of water per day. 2. Sinus tachycardia (fast heart rate) * Please follow up with primary care provider to discuss results of thyroid testing. * Please call your PCP or go to the ER if you develop palpitations, chest pain or SOB. 3. COPD Exacerbation * Please continue to wear 2 liters via nasal cannula at all times. * Please take Ceftin 300 mg twice daily and Azithromycin 250 mg daily for treatment of infection. * Please take Prednisone taper as follows: - Prednisone 40 mg daily on 10/14. - Prednisone 30 mg daily on Sunday 10/15. - Prednisone 20 mg daily on Monday 10/16. - Prednisone 10 mg daily on Tuesday 10/17 then discontinue. * Continue home Breo-Ellipta as prescribed. * Continue Mucinex 600-1200 mg twice daily for cough. * You will need to follow up with pulmonology to discuss COPD management. 4. Pulmonary Hypertension * Please follow up with cardiology as an outpatient to discuss completion of cardiac catheterization. 5. Epigastric Pain * Please continue Protonix twice daily and Famotidine daily. * Please follow up with gastroenterology to discuss obtaining upper scope (EGD) to rule out gastric ulcer. 6. Diabetes Mellitus Type II * Blood sugar is currently elevated due to steroids. * Please start Metformin extended release 500 mg daily for newly diagnosed DM. 7. Follow up appointments as outpatient: * Primary care provider on 10/17/19. * Pulmonology on 10/18/19. * Cardiology on 10/31/19. * Disability Program Navigator in 2-4 weeks. Pending Studies at Discharge: Yes Studies:: Blood cultures 10/10: negative (prelim) Stand-Alone Forms: [facility] Medications and DC Order Prescriptions: New prednisone 10 mg tablet 40 mg PO DAILY Qty: 10 RF: 0 metformin 500 mg tablet extended release 24 hr 500 mg PO DAILY Qty: 30 RF: 2 cefdinir 300 mg capsule 300 mg PO BID 2 Days Qty: 4 RF: 0 azithromycin 250 mg tablet 250 mg PO DAILY 2 Days Qty: 2 RF: 0 Continued albuterol sulfate [Ventolin HFA] 90 mcg/actuation HFA aerosol inhaler See Rx Instructions .ROUTE .COMPLEX Qty: 54 RF: 2 losartan 100 mg tablet 100 mg PO DAILY Qty: 90 RF: 3 montelukast 10 mg tablet 10 mg PO DAILY Qty: 30 RF: 5 cyclobenzaprine 10 mg tablet 10 mg PO TID PRN (Reason: muscle spasm) Qty: 90 RF: 1 trazodone 100 mg tablet 200 mg PO HS Qty: 180 RF: 3 famotidine 20 mg tablet 20 mg PO DAILY Qty: 90 RF: 1 ropinirole 1 mg tablet 1 mg PO DAILY Qty: 60 RF: 5 Linzess 290 mcg capsule 290 mcg PO DAILY Qty: 30 RF: 2 diclofenac sodium [Voltaren] 1 % gel 2 gm TOP QID Qty: 100 RF: 3 psyllium husk [Fiber (psyllium husk)] 0.52 gram capsule 2.6 gm PO DAILY RF: 0 Centrum Complete 18-400 mg-mcg tablet 1 tab PO DAILY RF: 0 hydrocodone-acetaminophen 5-325 mg tablet 1 tab PO Q8H PRN (Reason: pain) Qty: 60 RF: 0 albuterol sulfate 2.5 mg /3 mL (0.083 %) Solution For Nebulization 2.5 mg INHALATION QID PRN (Reason: Shortness Of Breath) RF: 0 pantoprazole 40 mg tablet,delayed release (DR/EC) 40 mg PO BID RF: 0 gabapentin 300 mg capsule 300 mg PO BID RF: 0 polyethylene glycol 3350 17 gram/dose powder 17 g PO DAILY RF: 0 melatonin 10 mg Tablet 10 mg PO HS PRN (Reason: Sleep) RF: 0 Breo Ellipta 100-25 mcg/dose Blister With Device 1 inh INHALATION DAILY RF: 0 Discontinued meloxicam [Mobic] 15 mg tablet 15 mg PO DAILY Qty: 30 RF: 0 prednisone 10 mg Tablet 10 mg PO DIRECTED RF: 0 Discharge Orders: Discharge Order (Routine); Ordered 10/13/19 Ordered By: Katharine Daniels/Other Patient Handouts: Diabetes Preparation Supervisor Complications, Diabetes Healthy Meals, Diabetes Carbs, Diabetes Exercise Benefits, Diabetes Living Life, A1C Admission Data Admit Date/Time: 10/12/19 14:05 Attending Provider: Tereso Hinojosa Admit Provider: Jeff Ramirez Primary Care Provider: Uvaldo Mancini Other Providers: Jeff Ramirez ; Uvaldo Ayon ; Taiwo Barajas Other Interventions: Discharge Summary Assessment (RN) Last Done: 10/13/19 12:34 Coding Level of Care Code D/C Day Management >30 mins Diagnoses Acute and chronic respiratory failure with hypoxia J96.21 Sepsis A41.9 Lactic acidosis E87.2 Tachycardia R00.0 Chest pain R07.9 COPD exacerbation J44.1 Asthma with exacerbation J45.901 Pulmonary HTN I27.20 Epigastric pain R10.13 Mood disorder F39 Chronic constipation K59.09 HTN (hypertension) I10 GERD (gastroesophageal reflux disease) K21.9 Restless leg syndrome G25.81 Type II diabetes mellitus E11.9 Abnormal TSH R79.89 History of Guillain-Stigler syndrome Z86.69 History of pulmonary embolism Z86.711 History of ETOH abuse F10.11 DVT prophylaxis Z29.9
== END 2019-10-13 13:52 | disposition home or self-care (01) ==
LOC: 3N 22:15 → ED 22:15 → SUATTDRO 10-11 00:33 → 3N 10-11 01:28 → 2W 10-11 13:49

== ENCOUNTER 2019-12-09 03:04 | Observation (INO) ==
[2019-12-09] MEDS ORDERED: DiphenhydrAMINE HCL 50 MG/ML VIAL IV STA (03:34)
[2019-12-09] MEDS ORDERED: METOCLOPRAMIDE HCL INJ 5 MG/ML 2 ML VIAL IV STA (03:36)
[2019-12-09] MEDS ORDERED: FAMOTIDINE 20MG/5ML IV PUSH IV STA (03:37)
[2019-12-09] MEDS ORDERED: SODIUM CHLORIDE 0.9% 1000ML 2,000 ML IV SCH (03:45)
[2019-12-09 03:54] LABS: Basophils # (auto) 0.05 K/uL (0-0.2); Basophils % (auto) 0.8 %; Eosinophils # (auto) 0.06 K/uL (0-0.5); Eosinophils % (auto) 0.9 %; Hematocrit (blood only) 49.1 % (37-47); Hemoglobin 17.9 g/dL (12.0-16.0); Immature Granulocytes # (auto) 0.02 K/uL (0.00-0.02); Immature Granulocytes % (auto) 0.3 %; Lymphocytes # (auto) 3.02 K/uL (1.2-3.4); Lymphocytes % (auto) 46.5 %; Mean Corpuscular Hemoglobin 33.9 pg (25-34); Mean Corpuscular Hgb Conc 36.5 g/dL (32-36); Mean Platelet Volume 10.9 fL (7.4-10.4); Monocytes # (auto) 0.51 K/uL (0.11-0.59); Monocytes % (auto) 7.8 %; Neutrophils # (auto) 2.84 K/uL (1.4-6.5); Neutrophils % (auto) 43.7 %; Platelet Count 249 K/uL (130-400); RDW Coefficient of Variation 12.6 % (11.5-14.5); Red Blood Count 5.28 M/uL (4.2-5.4)
[2019-12-09 04:10] LABS: Alanine Aminotransferase 150 U/L (12-78); Albumin Level 4.6 gm/dl (3.4-5.0); Aspartate Aminotransferase 149 U/L (15-37); BUN Creatinine Ratio 16.7 (10-20); Blood Urea Nitrogen 15 mg/dl (7-18); Calcium 10.6 mg/dl (8.5-10.1); Carbon Dioxide 27 mmol/L (21-32); Chloride 103 mmol/L (98-107); Creatinine Clr Calc Pharmacy 67.6 ml/min; Est GFR (Non-African American) 72.5; Glucose 128 mg/dl (70-99); Lipase 114 U/L (73-393); Potassium 3.6 mmol/L (3.5-5.1); Sodium 138 mmol/L (136-145)
[2019-12-09 04:15] LABS: Albumin Globulin Ratio 1.2 (0.9-2); Alkaline Phosphatase 81 U/L (45-117); Bilirubin,Total 0.8 mg/dl (0.2-1); Globulin 3.8 gm/dl (2.5-4.0); Total Protein 8.4 gm/dl (6.4-8.2); Troponin I < 0.015 ng/ml (0-0.045)
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
[2019-12-09 06:21] LABS: Acetaminophen < 2 ug/ml (10-30); Salicylate < 1.7 mg/dl (2.8-20)
--- NOTE | 2019-12-09 07:03 | Ultrasound Report ---
ABDOMINAL ULTRASOUND, RIGHT UPPER QUADRANT HISTORY: RUQ, vomiting, elevated LFT. COMPARISON: Abdomen and pelvis CT 10/03/2019. FINDINGS: Pancreas: The pancreas demonstrates a normal echotexture. Liver: Unremarkable. Gallbladder: No gallbladder wall thickening. A 1.6 cm stone. This is located at the gallbladder wall neck. Negative sonographic Alicea sign. The gallbladder is mildly distended. CBD: 3 mm. Right kidney: No hydronephrosis. IMPRESSION: A 1.6 cm stone at the gallbladder neck. The gallbladder is mildly distended without wall thickening o r pericholecystic fluid. ACT 112: Negative or not required by law. Electronically signed by: Kavin Damon M.D. 12/09/2019 7:02 AM
[2019-12-09] MEDS ORDERED: ALBUTEROL HFA 8 GM INHALER INH ONE (07:12)
[2019-12-09] MEDS ORDERED: HYDROCODONE/HOMATROPINE SYRUP 5MG/1.5MG 5ML UDP PO STA (07:12)
[2019-12-09] MEDS ORDERED: MAGNESIUM SULFATE / D5W 1 GM/100 ML BAG IV ONE (07:12)
--- NOTE | 2019-12-09 07:17 | Emergency Department Note ---
ED Visit Note Received patient in signout. History and physical verified by me. Called to bedside because the patient believes she is having an asthma attack. On my physical examination the patient is slightly wheezing and is coughing. I recommended that the patient bring her own albuterol inhaler as the hospital is experiencing a shortage. I told the patient there would be no albuterol breathing treatments due to the coronavirus outbreak she will however be ordered an inhaler. I will also give the patient magnesium. . : Vomiting Qualifiers: Vomiting type: unspecified Vomiting Intractability: non-intractable Nausea presence: with nausea Qualified Code(s): R11.2 - Nausea with vomiting, unspecified
--- NOTE | 2019-12-09 07:25 | XRay Report ---
CHEST AND ABDOMEN 2 VIEWS HISTORY: VOMITING COMPARISON: Chest 10/10/2019. FINDINGS: No pneumothorax. No pleural effusions. The heart remains normal in size. There is diffuse i nterstitial thickening which is likely chronic. No new focal lung consolidations to suggest pneumonia . No evidence for pulmonary edema. No pneumoperitoneum. No pneumatosis. The bowel gas pattern is unre markable. No evidence for bowel obstruction. No renal or ureteral calculi identified. IMPRESSION: 1. Chronic interstitial thickening. Otherwise, no acute process within the chest. 2. No evidence for bowel obstruction. ACT 112: Negative or not required by law. Electronically signed by: Kavin Damon M.D. 12/09/2019 7:24 AM
--- NOTE | 2019-12-09 07:38 | Surgery Consultation ---
Date of Consultation December 09, 2019 Assessment & Plan (1) Symptomatic cholelithiasis: This is a 54y F with PMH of COPD, guilliain barre syndrome, DM2, HTN, and cardiac ablation who presents to the [facility] ED on 12/09/19 with complaints of vomiting and epigastric pain over the past 3 months. RUQ US showed a gallstone in gallbladder neck. She is tender in the epigastric region and towards RUQ. We will plan to make patient NPO with IVF and book her for the OR for laparoscopic cholecystectomy. Dr. Gramajo will be by to obtain surgical consent. as above. upper/RUQ pain with n/v and wtloss over several months. US shows impacted gallstone in gallbladder neck. we discussed options. I recommend lap dilia. discussed risks ( bleeding/infection/dvt/pe/mi/cva/injury to another organ/bile duct injury or leaks etc... questions answered. we also discussed that lap dilia may not be the etiology of all of her symptoms. she did have a recent CT scan and likely needs an egd/colonoscopy in near future as well. pt agreeable. will proceed with lap dilia. History of Present Illness History of Present Illness This is a 54y F with PMH of COPD, guilliain barre syndrome, DM2, HTN, and cardiac ablation who presents to the [facility] ED on 12/09/19 with complaints of vomiting and epigastric pain.Patient has been experiencing episodes of persistent vomiting after everything she eats over the past 2.5-3 months, associated with upper abdominal pain. She says it continues to worsen. Since she is unable to keep anything down she has lost 40lbs over the last 60 days. Her mother also was buried last week which did not help. She reports her abdominal pain as sharp, worse with anything she eats, and sometimes radiates to the right side. Also endorses worsening heartburn. In the ED workup with a RUQ US revealed a 1.6 cm stone at the gallbladder neck. The gallbladder is mildly distended without wall thickening or pericholecystic fluid. Labs reveal a WBC of 6.5 and Tb: 0.8, AST: 149, ALT: 150, and lipase 114.Patient does report she was here earlier this year with similar symptoms and was scheduled to have an EGD and C- scope performed, which have been postponed due to the barksdale virus. She endorses constipation. Denies change in urine, diarrhea, fevers or chills. Surgery was consulted for further evaluation. Allergies Allergy/AdvReac Type Severity Reaction Status Date / Time red dye Allergy Intermediate RED FOOD Verified 12/09/19 04:33 DYE CAUSES SEVERE ASTHMA ATTACK yellow dye Allergy Intermediate YELLOW Verified 12/09/19 04:33 FOOD DYE CAUSES SEVERE ASTHMA ATTACK diphtheria toxoid,fluid Allergy Mild Unknown Verified 12/09/19 04:33 tetanus toxoid, adsorbed Allergy Mild Unknown Verified 12/09/19 04:33 mold Allergy Unknown ASTHMA Verified 12/09/19 04:33 ATTACK Dust Allergy Unknown ASTHMA Uncoded 12/09/19 04:33 ATTACK Home Medications Home Medications Medication Instructions Recorded Confirmed Type Breo Ellipta 1 inh INHALATION DAILY 07/05/18 12/09/19 History albuterol sulfate 2.5 mg INHALATION QID PRN 07/05/18 12/09/19 History gabapentin 300 mg PO BID PRN 07/05/18 12/09/19 History melatonin 10 mg PO HS PRN 07/05/18 12/09/19 History pantoprazole 40 mg PO BID 07/05/18 12/09/19 History polyethylene glycol 3350 17 g PO DAILY 07/05/18 12/09/19 History albuterol sulfate 90 mcg/actuation See Rx Instructions .ROUTE 07/15/19 12/09/19 Rx aerosol inhaler .COMPLEX #54 gram losartan 100 mg tablet 100 mg PO DAILY #90 tab 07/29/19 12/09/19 Rx montelukast 10 mg tablet 10 mg PO DAILY #30 tab 08/03/19 12/09/19 Rx cyclobenzaprine 10 mg tablet 10 mg PO TID PRN #90 tab 08/22/19 12/09/19 Rx famotidine 20 mg tablet 20 mg PO DAILY #90 tab 08/23/19 12/09/19 Rx trazodone 100 mg tablet 200 mg PO HS #180 tab 08/23/19 12/09/19 Rx ropinirole 1 mg tablet 1 mg PO DAILY #60 tab 09/09/19 12/09/19 Rx multivitamin-ferrous 1 tab PO DAILY 09/21/19 12/09/19 History fumarate-folic acid 18 mg-400 mcg tablet psyllium husk 0.52 gram capsule 2.6 gm PO DAILY cap 09/21/19 12/09/19 History linaclotide 290 mcg capsule 290 mcg PO DAILY #30 cap 09/26/19 12/09/19 Rx diclofenac sodium 1 % topical gel 2 gm TOP QID #100 gm 09/28/19 12/09/19 Rx metformin 500 mg PO DAILY #30 tab 10/13/19 12/09/19 Rx hydrocodone 5 mg-acetaminophen 325 1 tab PO Q8H PRN #60 tab 12/07/19 12/09/19 Rx mg tablet lorazepam 1 mg tablet 0.5 mg PO TID PRN #20 tab 12/07/19 12/09/19 Rx fluticasone propionate [Flonase 1 sprays INTNAS DAILY PRN 12/09/19 12/09/19 History Allergy Relief] pseudoephedrine HCl [Sudafed 12 120 mg PO Q12H PRN 12/09/19 12/09/19 History Hour] Patient History Family History Other No significant family history Social History Preferred Language: Nepali Communication Ability: Effective Final Cigar And Box Examiner Required: No Beliefs That Will Affect Care: None marital status: Single Current Living Situation: Alone Feels Safe at Home: Yes Smoking Status: Never smoker Second Hand Exposure: No ; Hx Alcohol Use: Yes Alcohol type: wine Hx Substance Use: No Review of Systems Constitutional: + weight loss; no fever and no chills Respiratory: + cough (due to asthma) Gastrointestinal: + abdominal pain (epigastric pain, moves to right side), + belching, + heartburn, + nausea, + vomiting and + constipation Genitourinary: no urinary symptoms Physical Exam Physical Exam: awake/alert Constitutional: cooperative Respiratory: + cough (due to asthma, inhalers ordered) Gastrointestinal (Abdomen): Inspection/Auscultation: abdomen not distended and no abdominal surgical incision Percussion/Palpation: + abdomen tender (ttp in epigatric and towards RUQ) and abdomen soft Results & Data Vital Signs (Past 12 Hours) Vital Signs Temp Pulse Pulse Resp BP BP Pulse Ox 12/09/19 06:56 109 H 20 158/97 H 92 12/09/19 06:01 106 H 20 151/99 H 93 12/09/19 04:45 105 H 20 152/98 H 95 12/09/19 03:54 106 H 22 134/110 H 97 12/09/19 03:08 36.7 C 127 H 20 179/95 H 90 ABDOMINAL ULTRASOUND, RIGHT UPPER QUADRANT HISTORY: RUQ, vomiting, elevated LFT. COMPARISON: Abdomen and pelvis CT 10/03/2019. FINDINGS: Pancreas: The pancreas demonstrates a normal echotexture. Liver: Unremarkable. Gallbladder: No gallbladder wall thickening. A 1.6 cm stone. This is located at the gallbladder wall neck. Negative sonographic Alicea sign. The gallbladder is mildly distended. CBD: 3 mm. Right kidney: No hydronephrosis. IMPRESSION: A 1.6 cm stone at the gallbladder neck. The gallbladder is mildly distended without wall thickening or pericholecystic fluid. ACT 112: Negative or not required by law. Electronically signed by: Kavin Damon M.D. 12/09/2019 7:02 AM PG Care Time/CCT Total # of Minutes Spent Total Time Spent with Patient: Total time spent is greater than 50% in coordination of care (as documented) at patient's floor/unit and/or counseling patient: Coding Level of Care Code 88445 Office/OBS Consult Lvl 4 Diagnoses Symptomatic cholelithiasis K80.20
[2019-12-09] MEDS ORDERED: ACETAMINOPHEN 1,000 MG/100 ML VIAL IV STA (07:46)
--- NOTE | 2019-12-09 08:12 | Anesthesiology Consultation ---
Date of Service December 09, 2019 Patient is postmenopausal Assessment & Plan Chart Review Chart Review: Acceptable Risk for Surgery Consults Requested none Proposed Anesthesia Risk / Benefits Reviewed With: PT / POA / Parent / Guardian, Accepts Plan and Informed Consent Obtained History Surgery Operation Date: 12/09/19 07:00 Proposed Procedures p Laparoscopic Cholecystectomy - Aime Gramajo, DO Height/Weight Height: 5 ft 2 in Weight: 74.7 kg Allergies Allergy/AdvReac Type Severity Reaction Status Date / Time red dye Allergy Intermediate RED FOOD Verified 12/09/19 04:33 DYE CAUSES SEVERE ASTHMA ATTACK yellow dye Allergy Intermediate YELLOW Verified 12/09/19 04:33 FOOD DYE CAUSES SEVERE ASTHMA ATTACK diphtheria toxoid,fluid Allergy Mild Unknown Verified 12/09/19 04:33 tetanus toxoid, adsorbed Allergy Mild Unknown Verified 12/09/19 04:33 mold Allergy Unknown ASTHMA Verified 12/09/19 04:33 ATTACK Dust Allergy Unknown ASTHMA Uncoded 12/09/19 04:33 ATTACK Medications Home Medications Medication Instructions Recorded Confirmed Last Taken Breo Ellipta 1 inh INHALATION DAILY 07/05/18 12/09/19 Unknown albuterol sulfate 2.5 mg INHALATION QID PRN 07/05/18 12/09/19 Unknown gabapentin 300 mg PO BID PRN 07/05/18 12/09/19 Unknown melatonin 10 mg PO HS PRN 07/05/18 12/09/19 Unknown pantoprazole 40 mg PO BID 07/05/18 12/09/19 Unknown polyethylene glycol 3350 17 g PO DAILY 07/05/18 12/09/19 Unknown albuterol sulfate 90 mcg/actuation See Rx Instructions .ROUTE 07/15/19 12/09/19 Unknown aerosol inhaler .COMPLEX #54 gram losartan 100 mg tablet 100 mg PO DAILY #90 tab 07/29/19 12/09/19 Unknown montelukast 10 mg tablet 10 mg PO DAILY #30 tab 08/03/19 12/09/19 Unknown cyclobenzaprine 10 mg tablet 10 mg PO TID PRN #90 tab 08/22/19 12/09/19 Unknown famotidine 20 mg tablet 20 mg PO DAILY #90 tab 08/23/19 12/09/19 Unknown trazodone 100 mg tablet 200 mg PO HS #180 tab 08/23/19 12/09/19 Unknown ropinirole 1 mg tablet 1 mg PO DAILY #60 tab 09/09/19 12/09/19 Unknown multivitamin-ferrous 1 tab PO DAILY 09/21/19 12/09/19 Unknown fumarate-folic acid 18 mg-400 mcg tablet psyllium husk 0.52 gram capsule 2.6 gm PO DAILY cap 09/21/19 12/09/19 Unknown linaclotide 290 mcg capsule 290 mcg PO DAILY #30 cap 09/26/19 12/09/19 Unknown diclofenac sodium 1 % topical gel 2 gm TOP QID #100 gm 09/28/19 12/09/19 Unknown metformin 500 mg PO DAILY #30 tab 10/13/19 12/09/19 Unknown hydrocodone 5 mg-acetaminophen 325 1 tab PO Q8H PRN #60 tab 12/07/19 12/09/19 Unknown mg tablet lorazepam 1 mg tablet 0.5 mg PO TID PRN #20 tab 12/07/19 12/09/19 Unknown fluticasone propionate [Flonase 1 sprays INTNAS DAILY PRN 12/09/19 12/09/19 Unknown Allergy Relief] pseudoephedrine HCl [Sudafed 12 120 mg PO Q12H PRN 12/09/19 12/09/19 Unknown Hour] Past Medical History Medical History (Updated 12/09/19 @ 09:09 by Arely Trevino MD) Aggressive behavior (Resolved) Alcohol intoxication (Resolved) Anxiety (Chronic) Asthma with exacerbation (Chronic) 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) Bronchitis (Resolved) Contusion of face (Resolved 04/27/11) COPD (chronic obstructive pulmonary disease) Depression (Chronic) Foot contusion (Resolved) Gastroenteritis (Resolved) Mood disorder (Chronic) Exercise / Class Metabolic Activity III < 4 Walking/Shop/Light housework Past Family History Family History Other No significant family history Past Anesthesia History No Hx of Anesthesia Complications and No Family Hx of Anesthesia Complications History of PONV No Hx of PONV and No Hx of Motion Sickness Social History Smoking Status: Never smoker Hx Alcohol Use: Yes Alcohol type: wine alcohol intake frequency: a few times a month Hx Substance Use: No Physical Exam Vital Signs Last Vital Signs Temp 36.7 C 12/09/19 03:08 Pulse 103 H 12/09/19 08:44 Resp 20 12/09/19 08:44 BP 137/93 03/27/20 08:44 Pulse Ox 94 12/09/19 08:44 ENMT Mouth: no dentition abnormality Thyromental Distance: > or= 3.5 Finger Breadths Mallampati Class: II Neck normal visual inspection Respiratory normal respiratory effort Auscultation: lungs clear to auscultation bilaterally Cardiovascular Rate/Rhythm: regular rate and regular rhythm Testing Laboratory Results 12/09/19 03:40 12/09/19 03:40 Electrocardiogram Date: 12/09/19 Sinus tachycardia, rate 107 bpm Low voltage QRS Inferior infarct (cited on or before 06-MAY-2014) Cannot rule out Anteroseptal infarct (cited on or before 06-MAY-2014) Abnormal ECG When compared with ECG of 10-OCT-2019 22:56, No significant change was found Chest X-Ray Date: 12/09/19 IMPRESSION: 1. Chronic interstitial thickening. Otherwise, no acute process within the chest. 2. No evidence for bowel obstruction. Echocardiogram Date: 10/11/19 LV is hyperdynamic LV wall motion is normal Mild MR
--- NOTE | 2019-12-09 08:20 | History & Physical Report ---
Date of Service December 09, 2019 Assessment & Plan (1) Symptomatic cholelithiasis: Presented with progressively worsening nausea and vomiting over 3 months with 35 pound weight loss With cholelithiasis noted on gallbladder ultrasound and elevated AST and ALT -Admit to medical floor with telemetry given history of tachycardia -Surgical consult appreciated-plan for laparoscopic cholecystectomy today -No need for antibiotics at this time as no evidence of infection or cholecystitis -Pain control, continue Protonix and Pepcid -IV fluids for hydration -Keep n.p.o. for now and advance as tolerated after surgery -Follow CBC and CMP in the morning (2) Nausea & vomiting: As above, likely secondary to symptomatic cholelithiasis However, also has a history of alcohol abuse and has a positive alcohol level here With persistent severe heartburn despite Pepcid and Protonix at home -Encouraged alcohol cessation -Consult GI as she was supposed to have an EGD as an outpatient previously -Continue Protonix and increase Pepcid to twice daily (3) LFT elevation: Increased AST and ALT as above possibly secondary to cholelithiasis It is not in a pattern of 2-1 as would be an alcoholic hepatitis -Follow LFTs in the morning (4) Interstitial lung disease: Chronic with bronchiectasis, follows with pulmonology. Thought to be secondary to swine flu in 2008 On chronic O2-continue O2 here -Continue home inhalers -Follow closely (5) Abnormal TSH: Had an abnormal TSH last admission -We will check TSH in the morning (6) Pulmonary HTN: Noted in history and likely secondary to chronic lung disease -Follow and watch for volume overload (7) History of ETOH abuse: With a history of heavy drinking in the past Patient denies drinking heavily for many years, however does have a positive alcohol level here in the ER and claims she only had one small drink the evening before admission -We will follow for alcohol withdrawal with scale and lorazepam as needed Start thiamine and folate daily supplements (8) History of pulmonary embolism: Will need good DVT prophylaxis postoperatively SCDs for now (9) Type II diabetes mellitus: Hemoglobin A1c 6.9% in 09/2019 -Sliding scale insulin and Accu-Cheks q. before meals at bedtime -Check hemoglobin A1c in the morning Hold home metformin (10) Restless leg syndrome: Continue home ropinirole (11) GERD (gastroesophageal reflux disease): Severe and persistent, despite Pepcid use and Protonix at home -Consult GI as above -Continue Protonix twice daily and increase Pepcid to twice daily (12) HTN (hypertension): Blood pressures are elevated here She reports not been able to take her home blood pressure meds very often given all the nausea and vomiting the last few weeks -Continue home losartan -Follow BMP in the morning (13) Chronic constipation: Continue home Linzess Likely secondary to chronic opioid use (14) Anxiety: Continue lorazepam as needed She recently had her mother in the last 2 to 3 weeks (15) Chronic respiratory failure with hypoxia: Greater than 90% On chronic O2 2 L with exertion -Continue supplemental O2 here (16) DVT prophylaxis: SCDs, add Lovenox when okay from surgical standpoint Disposition-admit to medical floor with telemetry Admission and Anticipated Discharge Date Admission Date: 12/09/2019 History of Present Illness Chief Complaint: Nausea/vomiting Primary Care Provider: Tyrell Mancini MD This patient is a 54-year-old female with a history of pulmonary hypertension, interstitial lung disease/restrictive lung disease with bronchiectasis with history of tracheostomy, chronic sinusitis, chronic hypoxic respiratory failure, AVNRT status post ablation, GERD, chronic constipation, HTN, RLS, DM 2, chronic low back pain on opioids, and 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 She presents to the ER with 3 months of progressively worsening nausea/vomiting and a 35 pound weight loss. She has some right upper quadrant abdominal pains. Her nausea and vomiting has been especially worse in the last week and has not been able to take any of her usual medications for the last 3 to 4 weeks. She denies any fever sweats or chills, no diarrhea. In fact, her last bowel movement was 2 or 3 days ago. She does report that she has had significant heartburn despite taking Pepcid and Protonix at home. She reports that her friend made her a warm drink of liliana to help her feel better last night but that normally she has not been drinking for years. Her mother just and she had her last week. She has been very anxious about this. In the ER, she had elevated AST and ALT but normal bilirubin and alkaline phosphatase. Her alcohol level was positive at 92. She did not have a leukocytosis and was afebrile. She was tachycardic and hypertensive. The right upper quadrant ultrasound revealed cholelithiasis with a stone in the neck but no CBD dilatation and no evidence of cholecystitis. General surgery saw in the ER and determined they would likely take her for a laparoscopic cholecystectomy today. Allergies Allergy/AdvReac Type Severity Reaction Status Date / Time red dye Allergy Intermediate RED FOOD Verified 12/09/19 04:33 DYE CAUSES SEVERE ASTHMA ATTACK yellow dye Allergy Intermediate YELLOW Verified 12/09/19 04:33 FOOD DYE CAUSES SEVERE ASTHMA ATTACK diphtheria toxoid,fluid Allergy Mild Unknown Verified 12/09/19 04:33 tetanus toxoid, adsorbed Allergy Mild Unknown Verified 12/09/19 04:33 mold Allergy Unknown ASTHMA Verified 12/09/19 04:33 ATTACK Dust Allergy Unknown ASTHMA Uncoded 12/09/19 04:33 ATTACK Home Medications Home Medications Medication Instructions Recorded Confirmed Type Breo Ellipta 1 inh INHALATION DAILY 07/05/18 12/09/19 History albuterol sulfate 2.5 mg INHALATION QID PRN 07/05/18 12/09/19 History gabapentin 300 mg PO BID PRN 07/05/18 12/09/19 History melatonin 10 mg PO HS PRN 07/05/18 12/09/19 History pantoprazole 40 mg PO BID 07/05/18 12/09/19 History polyethylene glycol 3350 17 g PO DAILY 07/05/18 12/09/19 History albuterol sulfate 90 mcg/actuation See Rx Instructions .ROUTE 07/15/19 12/09/19 Rx aerosol inhaler .COMPLEX #54 gram losartan 100 mg tablet 100 mg PO DAILY #90 tab 07/29/19 12/09/19 Rx montelukast 10 mg tablet 10 mg PO DAILY #30 tab 08/03/19 12/09/19 Rx cyclobenzaprine 10 mg tablet 10 mg PO TID PRN #90 tab 08/22/19 12/09/19 Rx famotidine 20 mg tablet 20 mg PO DAILY #90 tab 08/23/19 12/09/19 Rx trazodone 100 mg tablet 200 mg PO HS #180 tab 08/23/19 12/09/19 Rx ropinirole 1 mg tablet 1 mg PO DAILY #60 tab 09/09/19 12/09/19 Rx multivitamin-ferrous 1 tab PO DAILY 09/21/19 12/09/19 History fumarate-folic acid 18 mg-400 mcg tablet psyllium husk 0.52 gram capsule 2.6 gm PO DAILY cap 09/21/19 12/09/19 History linaclotide 290 mcg capsule 290 mcg PO DAILY #30 cap 09/26/19 12/09/19 Rx diclofenac sodium 1 % topical gel 2 gm TOP QID #100 gm 09/28/19 12/09/19 Rx metformin 500 mg PO DAILY #30 tab 10/13/19 12/09/19 Rx hydrocodone 5 mg-acetaminophen 325 1 tab PO Q8H PRN #60 tab 12/07/19 12/09/19 Rx mg tablet lorazepam 1 mg tablet 0.5 mg PO TID PRN #20 tab 12/07/19 12/09/19 Rx fluticasone propionate [Flonase 1 sprays INTNAS DAILY PRN 12/09/19 12/09/19 History Allergy Relief] pseudoephedrine HCl [Sudafed 12 120 mg PO Q12H PRN 12/09/19 12/09/19 History Hour] Past Med/Surg History Medical History Abnormal TSH Aggressive behavior (Resolved) Alcohol intoxication (Resolved) Anxiety (Chronic) Asthma with exacerbation (Chronic) 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) Bronchitis (Resolved) Chronic constipation Chronic respiratory failure with hypoxia Contusion of face (Resolved 04/27/11) COPD (chronic obstructive pulmonary disease) Depression (Chronic) Foot contusion (Resolved) Gastroenteritis (Resolved) GERD (gastroesophageal reflux disease) History of ETOH abuse History of Guillain-[place] syndrome History of pulmonary embolism HTN (hypertension) Interstitial lung disease Mood disorder (Chronic) Pulmonary HTN Restless leg syndrome Type II diabetes mellitus Surgical History History of radiofrequency ablation procedure for cardiac arrhythmia History of tracheostomy Status post craniectomy Status post insertion of percutaneous endoscopic gastrostomy (PEG) tube Family History Other No significant family history Social History Preferred Language: Slovak Communication Ability: Effective Loom Operator Required: No Beliefs That Will Affect Care: None marital status: Single Current Living Situation: Alone Other Information That Helps Us Care for You: No Feels Safe at Home: Yes Safety Concerns: Feels Safe At This Time Smoking Status: Never smoker Second Hand Exposure: No ; Hx Alcohol Use: Yes Alcohol type: wine Hx Substance Use: No Review of Systems Review of Systems: All systems reviewed & are unremarkable except as noted in HPI & below Physical Exam Constitutional: WD/WN, vitals as above + obese Eyes: PERRL, conjunctivae normal, anicteric sclerae ENMT: external ear and nose normal, oropharynx normal Neck: trachea midline, no thyromegaly Respiratory: normal respiratory effort, lungs clear to auscultation Cardiovascular: RRR, no murmur, no edema Chest (Breasts): Chest: normal inspection of chest Gastrointestinal (Abdomen): Inspection/Auscultation: abdomen normal to inspection and normal bowel sounds Percussion/Palpation: + abdomen tender (In right upper quadrant without guarding or rebound) and abdomen soft; no hepatosplenomegaly, no hernia and no abdominal mass Musculoskeletal: Extremities: extremities normal to inspection; no cyanosis and no clubbing Skin: no rashes, warm and dry Neurologic: moves all extremities and awake; no focal motor deficits Psychiatric: A+Ox3, euthymic affect Lymphatic: no lymphedema Results & Data Results & Data ([facility]) Vital Signs (Past 12 Hours) Vital Signs Temp Pulse Pulse Resp BP BP Pulse Ox 12/09/19 07:56 105 H 20 153/95 H 92 12/09/19 06:56 109 H 20 158/97 H 92 12/09/19 06:01 106 H 20 151/99 H 93 12/09/19 04:45 105 H 20 152/98 H 95 12/09/19 03:54 106 H 22 134/110 H 97 12/09/19 03:08 36.7 C 127 H 20 179/95 H 90 Laboratory Results 12/09/19 12/09/19 12/09/19 Range/Units 20:11 16:40 12:43 WBC (4.8-10.8) K/uL RBC (4.2-5.4) M/uL Hgb (12.0-16.0) g/dL Hct (37-47) % MCV (80-100) fL MCH (25-34) pg MCHC (32-36) g/dL RDW Std Deviation (36.4-46.3) fL RDW Coeff of Joyce (11.5-14.5) % Plt Count (130-400) K/uL MPV (7.4-10.4) fL Immature Gran % (Auto) % Neut % (Auto) % Lymph % (Auto) % [place] % (Auto) % Eos % (Auto) % Baso % (Auto) % Immature Gran # (Auto) (0.00-0.02) K/uL Neut # (Auto) (1.4-6.5) K/uL Lymph # (Auto) (1.2-3.4) K/uL [place] # (Auto) (0.11-0.59) K/uL Eos # (Auto) (0-0.5) K/uL Baso # (Auto) (0-0.2) K/uL Sodium (136-145) mmol/L Potassium (3.5-5.1) mmol/L Chloride (98-107) mmol/L Carbon Dioxide (21-32) mmol/L Anion Gap (3-11) BUN (7-18) mg/dl Creatinine (0.6-1.2) mg/dl Est Cr Clr Drug Dosing ml/min Est GFR ( Amer) Est GFR (Non-Af Amer) BUN/Creatinine Ratio (10-20) Glucose (70-99) mg/dl POC Glucose 126 H 144 H 133 H (70-99) mg/dl Calcium (8.5-10.1) mg/dl Total Bilirubin (0.2-1) mg/dl AST (15-37) U/L ALT (12-78) U/L Alkaline Phosphatase (45-117) U/L Troponin I (0-0.045) ng/ml Total Protein (6.4-8.2) gm/dl Albumin (3.4-5.0) gm/dl Globulin (2.5-4.0) gm/dl Albumin/Globulin Ratio (0.9-2) Lipase (73-393) U/L Salicylates (2.8-20) mg/dl Acetaminophen (10-30) ug/ml Ethyl Alcohol mg/dL (0-3) mg/dl 12/09/19 12/09/19 12/09/19 Range/Units 05:48 05:48 03:40 WBC 6.50 (4.8-10.8) K/uL RBC 5.28 (4.2-5.4) M/uL Hgb 17.9 H (12.0-16.0) g/dL Hct 49.1 H (37-47) % MCV 93.0 (80-100) fL MCH 33.9 (25-34) pg MCHC 36.5 H (32-36) g/dL RDW Std Deviation 43.0 (36.4-46.3) fL RDW Coeff of Joyce 12.6 (11.5-14.5) % Plt Count 249 (130-400) K/uL MPV 10.9 H (7.4-10.4) fL Immature Gran % (Auto) 0.3 % Neut % (Auto) 43.7 % Lymph % (Auto) 46.5 % [place] % (Auto) 7.8 % Eos % (Auto) 0.9 % Baso % (Auto) 0.8 % Immature Gran # (Auto) 0.02 (0.00-0.02) K/uL Neut # (Auto) 2.84 (1.4-6.5) K/uL Lymph # (Auto) 3.02 (1.2-3.4) K/uL [place] # (Auto) 0.51 (0.11-0.59) K/uL Eos # (Auto) 0.06 (0-0.5) K/uL Baso # (Auto) 0.05 (0-0.2) K/uL Sodium (136-145) mmol/L Potassium (3.5-5.1) mmol/L Chloride (98-107) mmol/L Carbon Dioxide (21-32) mmol/L Anion Gap (3-11) BUN (7-18) mg/dl Creatinine (0.6-1.2) mg/dl Est Cr Clr Drug Dosing ml/min Est GFR ( Amer) Est GFR (Non-Af Amer) BUN/Creatinine Ratio (10-20) Glucose (70-99) mg/dl POC Glucose (70-99) mg/dl Calcium (8.5-10.1) mg/dl Total Bilirubin (0.2-1) mg/dl AST (15-37) U/L ALT (12-78) U/L Alkaline Phosphatase (45-117) U/L Troponin I (0-0.045) ng/ml Total Protein (6.4-8.2) gm/dl Albumin (3.4-5.0) gm/dl Globulin (2.5-4.0) gm/dl Albumin/Globulin Ratio (0.9-2) Lipase (73-393) U/L Salicylates < 1.7 L (2.8-20) mg/dl Acetaminophen < 2 L (10-30) ug/ml Ethyl Alcohol mg/dL 92.0 H (0-3) mg/dl 12/09/19 Range/Units 03:40 WBC (4.8-10.8) K/uL RBC (4.2-5.4) M/uL Hgb (12.0-16.0) g/dL Hct (37-47) % MCV (80-100) fL MCH (25-34) pg MCHC (32-36) g/dL RDW Std Deviation (36.4-46.3) fL RDW Coeff of Joyce (11.5-14.5) % Plt Count (130-400) K/uL MPV (7.4-10.4) fL Immature Gran % (Auto) % Neut % (Auto) % Lymph % (Auto) % [place] % (Auto) % Eos % (Auto) % Baso % (Auto) % Immature Gran # (Auto) (0.00-0.02) K/uL Neut # (Auto) (1.4-6.5) K/uL Lymph # (Auto) (1.2-3.4) K/uL [place] # (Auto) (0.11-0.59) K/uL Eos # (Auto) (0-0.5) K/uL Baso # (Auto) (0-0.2) K/uL Sodium 138 (136-145) mmol/L Potassium 3.6 (3.5-5.1) mmol/L Chloride 103 (98-107) mmol/L Carbon Dioxide 27 (21-32) mmol/L Anion Gap 8.0 (3-11) BUN 15 (7-18) mg/dl Creatinine 0.90 (0.6-1.2) mg/dl Est Cr Clr Drug Dosing 67.6 ml/min Est GFR ( Amer) 84.0 Est GFR (Non-Af Amer) 72.5 BUN/Creatinine Ratio 16.7 (10-20) Glucose 128 H (70-99) mg/dl POC Glucose (70-99) mg/dl Calcium 10.6 H (8.5-10.1) mg/dl Total Bilirubin 0.8 (0.2-1) mg/dl AST 149 H (15-37) U/L ALT 150 H (12-78) U/L Alkaline Phosphatase 81 (45-117) U/L Troponin I < 0.015 (0-0.045) ng/ml Total Protein 8.4 H (6.4-8.2) gm/dl Albumin 4.6 (3.4-5.0) gm/dl Globulin 3.8 (2.5-4.0) gm/dl Albumin/Globulin Ratio 1.2 (0.9-2) Lipase 114 (73-393) U/L Salicylates (2.8-20) mg/dl Acetaminophen (10-30) ug/ml Ethyl Alcohol mg/dL (0-3) mg/dl Diagnostic Findings ABDOMINAL ULTRASOUND, RIGHT UPPER QUADRANT HISTORY: RUQ, vomiting, elevated LFT. COMPARISON: Abdomen and pelvis CT 10/03/2019. FINDINGS: Pancreas: The pancreas demonstrates a normal echotexture. Liver: Unremarkable. Gallbladder: No gallbladder wall thickening. A 1.6 cm stone. This is located at the gallbladder wall neck. Negative sonographic Alicea sign. The gallbladder is mildly distended. CBD: 3 mm. Right kidney: No hydronephrosis. IMPRESSION: A 1.6 cm stone at the gallbladder neck. The gallbladder is mildly distended without wall thickening or pericholecystic fluid. CHEST AND ABDOMEN 2 VIEWS HISTORY: VOMITING COMPARISON: Chest 10/10/2019. FINDINGS: No pneumothorax. No pleural effusions. The heart remains normal in size. There is diffuse interstitial thickening which is likely chronic. No new focal lung consolidations to suggest pneumonia. No evidence for pulmonary edema. No pneumoperitoneum. No pneumatosis. The bowel gas pattern is unremarkable. No evidence for bowel obstruction. No renal or ureteral calculi identified. IMPRESSION: 1. Chronic interstitial thickening. Otherwise, no acute process within the chest. 2. No evidence for bowel obstruction. Code Status & VTE Plan Code Status Full code VTE Prophylaxis Plan VTE Prophylaxis will be ordered: Yes PG Care Time/CCT Total # of Minutes Spent Total Time Spent with Patient: Total time spent is greater than 50% in coordination of care (as documented) at patient's floor/unit and/or counseling patient: Coding Level of Care Code 46677 OBS Care - Level 3 Diagnoses Symptomatic cholelithiasis K80.20 Nausea & vomiting R11.2 LFT elevation R94.5 Interstitial lung disease J84.9 Abnormal TSH R79.89 Pulmonary HTN I27.20 History of ETOH abuse F10.11 History of pulmonary embolism Z86.711 Type II diabetes mellitus E11.9 Restless leg syndrome G25.81 GERD (gastroesophageal reflux disease) K21.9 HTN (hypertension) I10 Chronic constipation K59.09 Anxiety F41.9 Chronic respiratory failure with hypoxia J96.11 DVT prophylaxis Z29.9
[2019-12-09] MEDS ORDERED: MIDAZOLAM HCL 1 MG/ML 2ML VIAL ONE ×2 (08:53→10:34)
[2019-12-09] MEDS ORDERED: fentaNYL citrate 100 MCG/2 ML VIAL ONE (08:53)
[2019-12-09] MEDS ORDERED: CEFAZOLIN 2,000 MG/15 ML IV PUSH IV ONE (09:05)
[2019-12-09] MEDS ORDERED: BUPIVACAINE 0.5 % 5 MG/1 ML MPF 30ML VIAL ONE (09:06)
[2019-12-09] MEDS ORDERED: BUPIVACAINE/EPINEPHRINE 0.5% MPF 1:200,000 10 ML VIAL ONE (09:06)
[2019-12-09] MEDS ORDERED: ePHEDrine sulfate 50 MG/ML AMP IV PRN (09:14)
[2019-12-09] MEDS ORDERED: ATROPINE SULFATE 0.1 MG/ML 10ML SYR IV PRN (09:14)
[2019-12-09] MEDS ORDERED: ONDANSETRON INJ 2 MG/ML 2 ML VIAL IV PRN ×2 (09:14→12:30)
[2019-12-09] MEDS ORDERED: SUGAMMADEX SODIUM 200 MG/2 ML VIAL IV ONE (09:15)
[2019-12-09] MEDS ORDERED: CEFAZOLIN 2000MG 2,000 MG/15 ML SYR IV ONE (09:18)
[2019-12-09] MEDS ORDERED: ONDANSETRON INJ 2 MG/ML 2 ML VIAL ONE (10:10)
[2019-12-09] MEDS ORDERED: PHENYLEPHRINE 100MCG/ML 5ML SYR ONE (10:10)
[2019-12-09] MEDS ORDERED: ROCURONIUM BROMIDE 10 MG/ML 5 ML VIAL ONE (10:10)
[2019-12-09] MEDS ORDERED: PROPOFOL IV EMULSION 10 MG/ML 20 ML VIAL IV ONE (10:10)
[2019-12-09] MEDS ORDERED: LIDOCAINE HCL 2% 2 ML VIAL/AMP(20MG/ML) INFIL ONE (10:10)
[2019-12-09] MEDS ORDERED: ePHEDrine sulfate 50 MG/ML SYR ONE (10:10)
[2019-12-09] MEDS ORDERED: HYDROCORTISONE SOD SUCCINATE 100 MG/2 ML VIAL ONE (10:10)
[2019-12-09] MEDS ORDERED: SUCCINYLCHOLINE 100MG/5ML SYR ONE (10:10)
[2019-12-09] MEDS ORDERED: LARYING-O-JET KIT (LTA) ONE (10:10)
--- NOTE | 2019-12-09 10:33 | Operative Report ---
PG Post Operative Report Pre & Post Diagnosis Operation Date: 12/09/19 07:00 Pre-Op Diagnosis: calcus cholecystitis Post-Op Diagnosis: calcus cholecystitis I identified the patient and participated in the time-out.: Yes Procedure Operation Date: 12/09/19 07:00 Actual Procedures p Laparoscopic Cholecystectomy(Not Applicable) - Aime Gramajo DO Surgeon Aime Gramajo DO Civil Drafter harshil Gupta Estimated Blood Loss 10 Findings Consistent with Post-Op Diagnosis Specimens gallbladder Description of Procedure After informed consent was obtained the patient was taken to the operating room and placed in the supine position. After successful intubation the abdomen was sterilely prepped and draped in usual fashion. A periumbilical incision was made with an 11 blade scalpel and carried down through the soft tissue using electrocautery. The anterior rectus fascia was opened using electrocautery and 2 #0 Vicryl stay sutures were placed. The peritoneum was elevated with hemostats and incised under direct vision using Metzenbaum scissors. A finger sweep was performed and a 12 mm Mon trocar was placed. The abdomen was insufflated to 18 mmHg. The laparoscope was inserted and the abdomen was examined in 360. No gross abnormalities were identified. A subxiphoid 5 mm port and 2 right upper quadrant 5 mm ports were placed under direct vision. The patient was placed in a reverse Trendelenburg position and slightly airplaned to the left. The gallbladder was grasped and elevated superiorly and laterally. A [place] dissector was used to take down adhesions around the neck of the gallbladder. The gallbladder was distended with some mild inflammation. The cystic duct was identified and skeletonized. It was clipped twice proximally and once distally and transected using a laparoscopic scissor. In similar fashion the cystic artery was identified and skeletonized clipped and divided. There was a small anterior arterial branch that had to be clipped/divided at well. The gallbladder was removed from the gallbladder fossa with electrocautery. It was placed into an Endo Catch bag. Thorough irrigation was performed. At the end of the procedure there was adequate hemostasis and no evidence of any bile leaks. A final look around the abdomen showed no other abnormalities other than the stomach being adhesed to the anterior abdominal wall from her prior gastrostomy tube.. The gallbladder and trochars were all removed and the abdomen was desufflated. The fascia of the camera port was c losed using 0 Vicryl in a [id number] fashion. All the wounds were irrigated and closed using 4-0 Monocryl. Marcaine was injected around them for postoperative analgesia and skin glue used as a dressing. The patient was awakened, extubated and transferred to recovery in stable condition. My physician's sound assistant was present throughout the entire case... helped with prepping the patient. With exposure for trocar placement, as well as retracted the gallbladder throughout the case and also assisted with wound closure and dressing placement. I attest to the content of the Intraoperative Record and any orders documented therein. Any exceptions are noted below.
[2019-12-09] MEDS: fentaNYL citrate 100 MCG/2 ML VIAL IV PRN ×4 (10:49→11:10)
[2019-12-09] MEDS: HYDROmorphone INJ 1 MG/ML SYRINGE IV PRN ×4 (11:21→11:41)
--- NOTE | 2019-12-09 12:21 | Anesthesiology Progress Note ---
Date of Service December 09, 2019 Anesthesia Post Procedure Vital Signs Vital Signs: Temp Pulse Pulse Pulse Resp BP BP 12/09/19 11:50 36.8 C 100 H 21 129/65 12/09/19 11:40 36.8 C 98 H 27 H 101/65 12/09/19 11:30 36.8 C 99 H 24 123/85 12/09/19 11:20 92 H 27 H 140/90 12/09/19 11:10 82 31 H 144/86 H 12/09/19 11:00 81 41 H 145/102 H 12/09/19 10:50 93 H 45 H 164/92 H 12/09/19 10:44 36.4 C L 98 H 22 103/80 12/09/19 09:07 37 C 104 H 20 151/109 H 12/09/19 08:44 103 H 20 137/93 12/09/19 07:56 105 H 20 153/95 H 12/09/19 06:56 109 H 20 158/97 H 12/09/19 06:01 106 H 20 151/99 H 12/09/19 04:45 105 H 20 152/98 H 12/09/19 03:54 106 H 22 134/110 H 12/09/19 03:08 36.7 C 127 H 20 179/95 H Pulse Ox 12/09/19 11:50 94 12/09/19 11:40 95 12/09/19 11:30 97 12/09/19 11:20 97 12/09/19 11:10 99 12/09/19 11:00 100 12/09/19 10:50 99 12/09/19 10:44 97 12/09/19 09:07 90 12/09/19 08:44 94 12/09/19 07:56 92 12/09/19 06:56 92 12/09/19 06:01 93 12/09/19 04:45 95 12/09/19 03:54 97 12/09/19 03:08 90 Pain Intensity Back: Pain Intensity: 5 Abdomen: Pain Intensity: 4 Transfer of Care Handoff Completed per policy Notes Mental Status: alert / awake / arousable and participated in evaluation Patient Amnestic to Procedure: Yes Nausea / Vomiting: adequately controlled Pain: adequately controlled Airway Patency, RR, SpO2: stable & adequate BP & HR: stable & adequate Hydration State: stable & adequate Anesthetic Complications: no major complications apparent and Pt Satisfied with anesthetic care
[2019-12-09] MEDS ORDERED: GABAPENTIN 300 MG CAP PO PRN (12:30)
[2019-12-09] MEDS ORDERED: GLUCOSE 10 TABS/TUBE PO PRN (12:30)
[2019-12-09] MEDS ORDERED: ALBUTEROL 0.083% NEBU SOLN 3 ML VIAL INH PRN (12:30)
[2019-12-09] MEDS ORDERED: MoRPHine SULFATE 2 MG/ML CARP IV PRN (12:30)
[2019-12-09] MEDS ORDERED: GLUCOSE 40% GEL 15 GM TUBE PO PRN (12:30)
[2019-12-09] MEDS ORDERED: FLUTICASONE PROPIONATE NA SPR 16 GM BTL NAE PRN (12:30)
[2019-12-09] MEDS ORDERED: DEXTROSE 50% 50 ML SYRINGE IV PRN (12:30)
[2019-12-09] MEDS ORDERED: CARBOHYDRATES FOR HYPOGLYCEMIA PO PRN (12:30)
[2019-12-09] MEDS ORDERED: GLUCAGON FOR INJ 1 MG VIAL SQ PRN (12:30)
[2019-12-09] MEDS ORDERED: ACETAMINOPHEN 325 MG TAB PO PRN (12:30)
[2019-12-09] MEDS ORDERED: PSEUDOEPHEDRINE HCL 30 MG TAB PO PRN (12:49)
[2019-12-09] MEDS: MoRPHine SULFATE 4 MG/ML 1 ML CARP\\VIAL IV PRN ×3 (13:20→23:56)
[2019-12-09] MEDS: CYCLOBENZAPRINE HCL 10 MG TAB PO PRN ×2 (13:21→20:34)
[2019-12-09] MEDS: SODIUM CHLORIDE 0.9% 1000ML 1,000 ML IV SCH (13:27)
[2019-12-09] MEDS: MONTELUKAST SODIUM 10 MG TABLET PO SCH (13:37)
[2019-12-09] MEDS: PANTOprazole 40 MG TAB PO SCH ×2 (13:37→20:31)
[2019-12-09] MEDS: FLUTICASONE/VILANTEROL 100/25MCG 14 PUFFS/INHALER INH SCH (13:38)
[2019-12-09] MEDS: FAMOTIDINE 20 MG TAB PO SCH ×2 (13:38→20:31)
[2019-12-09] MEDS: POLYETHYLENE (MIRALAX) 17 GM PACK PO SCH (13:39)
[2019-12-09] MEDS: LOSARTAN POTASSIUM 50 MG TAB PO SCH (13:39)
[2019-12-09] MEDS: INSULIN ASPART 100 UNITS/ML 3 ML PEN SC SCH ×3 (13:39→20:40)
--- NOTE | 2019-12-09 13:58 | Gastrointestinal Consultation ---
Date of Consultation December 09, 2019 Assessment & Plan (1) Symptomatic cholelithiasis: - S/p lap dilia earlier today - Post-operative management per surgical service (2) Epigastric pain: - As upper abd pain, nausea, vomiting are chronic issues for her, would recommend she continue her BID PPI, famotidine daily - Recommend pt pursue EGD/colonoscopy as previously recommended and ordered by our service to evaluate for such etiologies as PUD, H. pylori, etc - She can f/u as an outpt with GI; in the event her EGD/colonoscopy are unrevealing, consider w/u for gastroparesis as a cause for her symptoms given her underlying T2DM (3) LFT elevation: - This is in the setting of recent symptomatic gallstone and also ETOH use as evidenced by elevated ETOH level on arrival - Would trend LFTs and monitor symptoms to ensure she has not developed biliary obstruction, choledocholithiasis, cholangitis - If primary or surgery service is concerned about biliary stone, consider MRCP - Would recommend ETOH cessation efforts be maximized and also avoid Tylenol containing products (4) GERD (gastroesophageal reflux disease): - Continue PPI BID and Famotidine - Consider addition of carafate for symptomatic relief - Avoid known GERD trigger foods and substance including ETOH, tobacco, caffeine History of Present Illness Reason for Consultation: severe heartburn, intractable nausea, vomiting Attending Physician: Brenda Shelton MD History of Present Illness This is a 54 y/o female with PMHx chronic abd pain, constipation on Linzess, ETOH intake, GERD, DM-2, RLS, HTN, h/o Guillain-Freeman, COPD and others below admitted this AM after presenting for acute on chronic abd pain, n/v for the last week. Labs on arrival were notable for acutely elevated transaminases (AST/ALT 149/150), with normal bilirubin and ALP, normal WBC, ETOH level was 92. On US ABD, she was found to have an impacted gallstone in the GB neck with no biliary dilation, and underwent laparoscopic cholecystectomy earlier today. Pt remains hemodynamically stable and afebrile. GI consulted for severe heartbun, n/v. Due to coronavirus pandemic concerns, pt not seen but chart was reviewed. She was previously consulted by our service in September of this year for ongoing epigastric abd pain, nausea, post-prandial abd pain (while admitted for respiratory issues), h/o GERD. At that time, it was noted that she had never undergone endoscopy (EGD or screening colonoscopy) and it was recommended that she continue BID PPI (pantoprazole 40 mg BID), famotidine 20 mg daily, and schedule EGD/colonoscopy with our service, and perhaps consider gastroparesis in light of her T2DM. However, since that time the pt has not scheduled endoscopy. She remains on PPI BID and famotidine, though symptoms continue. She takes L inzess for chronic constipation. Allergies Allergy/AdvReac Type Severity Reaction Status Date / Time red dye Allergy Intermediate RED FOOD Verified 12/09/19 04:33 DYE CAUSES SEVERE ASTHMA ATTACK yellow dye Allergy Intermediate YELLOW Verified 12/09/19 04:33 FOOD DYE CAUSES SEVERE ASTHMA ATTACK diphtheria toxoid,fluid Allergy Mild Unknown Verified 12/09/19 04:33 tetanus toxoid, adsorbed Allergy Mild Unknown Verified 12/09/19 04:33 mold Allergy Unknown ASTHMA Verified 12/09/19 04:33 ATTACK Dust Allergy Unknown ASTHMA Uncoded 12/09/19 04:33 ATTACK Home Medications Home Medications Medication Instructions Recorded Confirmed Type Breo Ellipta 1 inh INHALATION DAILY 07/05/18 12/09/19 History albuterol sulfate 2.5 mg INHALATION QID PRN 07/05/18 12/09/19 History gabapentin 300 mg PO BID PRN 07/05/18 12/09/19 History melatonin 10 mg PO HS PRN 07/05/18 12/09/19 History pantoprazole 40 mg PO BID 07/05/18 12/09/19 History polyethylene glycol 3350 17 g PO DAILY 07/05/18 12/09/19 History albuterol sulfate 90 mcg/actuation See Rx Instructions .ROUTE 07/15/19 12/09/19 Rx aerosol inhaler .COMPLEX #54 gram losartan 100 mg tablet 100 mg PO DAILY #90 tab 07/29/19 12/09/19 Rx montelukast 10 mg tablet 10 mg PO DAILY #30 tab 08/03/19 12/09/19 Rx cyclobenzaprine 10 mg tablet 10 mg PO TID PRN #90 tab 08/22/19 12/09/19 Rx famotidine 20 mg tablet 20 mg PO DAILY #90 tab 08/23/19 12/09/19 Rx trazodone 100 mg tablet 200 mg PO HS #180 tab 08/23/19 12/09/19 Rx ropinirole 1 mg tablet 1 mg PO DAILY #60 tab 09/09/19 12/09/19 Rx multivitamin-ferrous 1 tab PO DAILY 09/21/19 12/09/19 History fumarate-folic acid 18 mg-400 mcg tablet psyllium husk 0.52 gram capsule 2.6 gm PO DAILY cap 09/21/19 12/09/19 History linaclotide 290 mcg capsule 290 mcg PO DAILY #30 cap 09/26/19 12/09/19 Rx diclofenac sodium 1 % topical gel 2 gm TOP QID #100 gm 09/28/19 12/09/19 Rx metformin 500 mg PO DAILY #30 tab 10/13/19 12/09/19 Rx hydrocodone 5 mg-acetaminophen 325 1 tab PO Q8H PRN #60 tab 12/07/19 12/09/19 Rx mg tablet lorazepam 1 mg tablet 0.5 mg PO TID PRN #20 tab 12/07/19 12/09/19 Rx fluticasone propionate [Flonase 1 sprays INTNAS DAILY PRN 12/09/19 12/09/19 History Allergy Relief] pseudoephedrine HCl [Sudafed 12 120 mg PO Q12H PRN 12/09/19 12/09/19 History Hour] Patient History Family History Other No significant family history Social History Preferred Language: Tunisian Communication Ability: Effective Occupational Therapy Supervisor Required: No Beliefs That Will Affect Care: None marital status: Single Current Living Situation: Alone Other Information That Helps Us Care for You: No Feels Safe at Home: Yes Safety Concerns: Feels Safe At This Time Smoking Status: Never smoker Second Hand Exposure: No ; Hx Alcohol Use: Yes Alcohol type: wine Hx Substance Use: No Results & Data ([facility]) Vital Signs (Past 12 Hours) Vital Signs Temp Pulse Pulse Pulse Resp BP BP 12/09/19 13:29 37.1 C 103 H 103 H 18 116/77 12/09/19 12:48 36.9 C 103 H 20 116/70 12/09/19 12:30 12/09/19 11:50 36.8 C 100 H 21 129/65 12/09/19 11:48 12/09/19 11:40 36.8 C 98 H 27 H 101/65 12/09/19 11:30 36.8 C 99 H 24 123/85 12/09/19 11:20 92 H 27 H 140/90 12/09/19 11:10 82 31 H 144/86 H 12/09/19 11:00 81 41 H 145/102 H 12/09/19 10:50 93 H 45 H 164/92 H 12/09/19 10:44 36.4 C L 98 H 22 103/80 12/09/19 09:07 37 C 104 H 20 151/109 H 12/09/19 08:44 103 H 20 137/93 12/09/19 07:56 105 H 20 153/95 H 12/09/19 06:56 109 H 20 158/97 H 12/09/19 06:01 106 H 20 151/99 H 12/09/19 04:45 105 H 20 152/98 H 12/09/19 03:54 106 H 22 134/110 H 12/09/19 03:08 36.7 C 127 H 20 179/95 H Pulse Ox Pulse Ox 12/09/19 13:29 95 12/09/19 12:48 95 12/09/19 12:30 94 12/09/19 11:50 94 12/09/19 11:48 93 12/09/19 11:40 95 12/09/19 11:30 97 12/09/19 11:20 97 12/09/19 11:10 99 12/09/19 11:00 100 12/09/19 10:50 99 12/09/19 10:44 97 12/09/19 09:07 90 12/09/19 08:44 94 12/09/19 07:56 92 12/09/19 06:56 92 12/09/19 06:01 93 12/09/19 04:45 95 12/09/19 03:54 97 12/09/19 03:08 90 Laboratory Results 12/09/19 12/09/19 12/09/19 Range/Units 12:43 05:48 05:48 WBC (4.8-10.8) K/uL RBC (4.2-5.4) M/uL Hgb (12.0-16.0) g/dL Hct (37-47) % MCV (80-100) fL MCH (25-34) pg MCHC (32-36) g/dL RDW Std Deviation (36.4-46.3) fL RDW Coeff of Joyce (11.5-14.5) % Plt Count (130-400) K/uL MPV (7.4-10.4) fL Immature Gran % (Auto) % Neut % (Auto) % Lymph % (Auto) % [place] % (Auto) % Eos % (Auto) % Baso % (Auto) % Immature Gran # (Auto) (0.00-0.02) K/uL Neut # (Auto) (1.4-6.5) K/uL Lymph # (Auto) (1.2-3.4) K/uL [place] # (Auto) (0.11-0.59) K/uL Eos # (Auto) (0-0.5) K/uL Baso # (Auto) (0-0.2) K/uL Sodium (136-145) mmol/L Potassium (3.5-5.1) mmol/L Chloride (98-107) mmol/L Carbon Dioxide (21-32) mmol/L Anion Gap (3-11) BUN (7-18) mg/dl Creatinine (0.6-1.2) mg/dl Est Cr Clr Drug Dosing ml/min Est GFR ( Amer) Est GFR (Non-Af Amer) BUN/Creatinine Ratio (10-20) Glucose (70-99) mg/dl POC Glucose 133 H (70-99) mg/dl Calcium (8.5-10.1) mg/dl Total Bilirubin (0.2-1) mg/dl AST (15-37) U/L ALT (12-78) U/L Alkaline Phosphatase (45-117) U/L Troponin I (0-0.045) ng/ml Total Protein (6.4-8.2) gm/dl Albumin (3.4-5.0) gm/dl Globulin (2.5-4.0) gm/dl Albumin/Globulin Ratio (0.9-2) Lipase (73-393) U/L Salicylates < 1.7 L (2.8-20) mg/dl Acetaminophen < 2 L (10-30) ug/ml Ethyl Alcohol mg/dL 92.0 H (0-3) mg/dl 12/09/19 12/09/19 Range/Units 03:40 03:40 WBC 6.50 (4.8-10.8) K/uL RBC 5.28 (4.2-5.4) M/uL Hgb 17.9 H (12.0-16.0) g/dL Hct 49.1 H (37-47) % MCV 93.0 (80-100) fL MCH 33.9 (25-34) pg MCHC 36.5 H (32-36) g/dL RDW Std Deviation 43.0 (36.4-46.3) fL RDW Coeff of Joyce 12.6 (11.5-14.5) % Plt Count 249 (130-400) K/uL MPV 10.9 H (7.4-10.4) fL Immature Gran % (Auto) 0.3 % Neut % (Auto) 43.7 % Lymph % (Auto) 46.5 % [place] % (Auto) 7.8 % Eos % (Auto) 0.9 % Baso % (Auto) 0.8 % Immature Gran # (Auto) 0.02 (0.00-0.02) K/uL Neut # (Auto) 2.84 (1.4-6.5) K/uL Lymph # (Auto) 3.02 (1.2-3.4) K/uL [place] # (Auto) 0.51 (0.11-0.59) K/uL Eos # (Auto) 0.06 (0-0.5) K/uL Baso # (Auto) 0.05 (0-0.2) K/uL Sodium 138 (136-145) mmol/L Potassium 3.6 (3.5-5.1) mmol/L Chloride 103 (98-107) mmol/L Carbon Dioxide 27 (21-32) mmol/L Anion Gap 8.0 (3-11) BUN 15 (7-18) mg/dl Creatinine 0.90 (0.6-1.2) mg/dl Est Cr Clr Drug Dosing 67.6 ml/min Est GFR ( Amer) 84.0 Est GFR (Non-Af Amer) 72.5 BUN/Creatinine Ratio 16.7 (10-20) Glucose 128 H (70-99) mg/dl POC Glucose (70-99) mg/dl Calcium 10.6 H (8.5-10.1) mg/dl Total Bilirubin 0.8 (0.2-1) mg/dl AST 149 H (15-37) U/L ALT 150 H (12-78) U/L Alkaline Phosphatase 81 (45-117) U/L Troponin I < 0.015 (0-0.045) ng/ml Total Protein 8.4 H (6.4-8.2) gm/dl Albumin 4.6 (3.4-5.0) gm/dl Globulin 3.8 (2.5-4.0) gm/dl Albumin/Globulin Ratio 1.2 (0.9-2) Lipase 114 (73-393) U/L Salicylates (2.8-20) mg/dl Acetaminophen (10-30) ug/ml Ethyl Alcohol mg/dL (0-3) mg/dl Diagnostic Findings US ABD 12/09/19: A 1.6 cm stone at the gallbladder neck. The gallbladder is mildly distended without wall thickening or pericholecystic fluid. CXR 12/09/19: 1. Chronic interstitial thickening. Otherwise, no acute process within the chest. 2. No evidence for bowel obstruction.
--- NOTE | 2019-12-09 15:48 | Electrocardiogram Report ---
Test Reason : Blood Pressure : / mmHG Vent. 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 lead placement vs. LVH Abnormal ECG When compared with ECG of 10-OCT-2019 22:56, No significant change was found Confirmed by Tyrell Ayon ([id number]) on 12/09/2019 3:48:27 PM Referred By: Uvaldo Mancini Confirmed By:Lux Ayon
[2019-12-09] MEDS: LINZESS 290 MCG SCH ×2 (16:20→23:59)
[2019-12-09] MEDS ORDERED: LORazepam 1 MG TAB PO PRN (17:14)
[2019-12-09] MEDS: CEFAZOLIN 2000MG 2,000 MG/15 ML SYR IV SCH (17:28)
[2019-12-09] MEDS: LORazepam 0.5 MG TAB PO PRN (17:28)
[2019-12-09] MEDS: HYDROCODONE/ACETAMOPHEN 5/325MG TAB PO PRN (19:02)
[2019-12-09] MEDS: FOLIC ACID 1 MG TAB PO SCH (19:02)
[2019-12-09] MEDS: THIAMINE HCL 100 MG TAB PO SCH (19:03)
[2019-12-09] MEDS: TRAZODONE HCL 100 MG TAB PO SCH (20:30)
[2019-12-09] MEDS: ROPINIROLE HCL 1 MG TABLET PO SCH (20:31)
[2019-12-10] MEDS: SODIUM CHLORIDE 0.9% 1000ML 1,000 ML IV SCH ×2 (01:26→14:21)
[2019-12-10] MEDS: CEFAZOLIN 2000MG 2,000 MG/15 ML SYR IV SCH ×2 (01:27→08:38)
[2019-12-10] MEDS: HYDROCODONE/ACETAMOPHEN 5/325MG TAB PO PRN ×4 (05:13→23:23)
[2019-12-10] MEDS: CYCLOBENZAPRINE HCL 10 MG TAB PO PRN ×2 (05:38→20:38)
[2019-12-10 06:19] LABS: Basophils # (auto) 0.02 K/uL (0-0.2); Basophils % (auto) 0.3 %; Eosinophils # (auto) 0.07 K/uL (0-0.5); Eosinophils % (auto) 0.9 %; Hematocrit (blood only) 42.6 % (37-47); Hemoglobin 14.3 g/dL (12.0-16.0); Immature Granulocytes # (auto) 0.01 K/uL (0.00-0.02); Immature Granulocytes % (auto) 0.1 %; Lymphocytes # (auto) 2.77 K/uL (1.2-3.4); Lymphocytes % (auto) 35.8 %; Mean Corpuscular Hemoglobin 32.6 pg (25-34); Mean Corpuscular Hgb Conc 33.6 g/dL (32-36); Mean Platelet Volume 11.1 fL (7.4-10.4); Monocytes # (auto) 0.69 K/uL (0.11-0.59); Monocytes % (auto) 8.9 %; Neutrophils # (auto) 4.18 K/uL (1.4-6.5); Platelet Count 199 K/uL (130-400); RDW Coefficient of Variation 12.9 % (11.5-14.5); RDW Standard Deviation 45.9 fL (36.4-46.3); Red Blood Count 4.39 M/uL (4.2-5.4); White Blood Count 7.74 K/uL (4.8-10.8)
[2019-12-10 06:53] LABS: Alanine Aminotransferase 87 U/L (12-78); Albumin Level 3.4 gm/dl (3.4-5.0); Aspartate Aminotransferase 93 U/L (15-37); BUN Creatinine Ratio 11.8 (10-20); Blood Urea Nitrogen 9 mg/dl (7-18); Calcium 7.8 mg/dl (8.5-10.1); Carbon Dioxide 25 mmol/L (21-32); Chloride 108 mmol/L (98-107); Creatinine Clr Calc Pharmacy 80.1 ml/min; Est GFR (African American) 103.1; Est GFR (Non-African American) 88.9; Glucose 123 mg/dl (70-99); Magnesium 2.1 mg/dl (1.8-2.4); Potassium 3.3 mmol/L (3.5-5.1); Sodium 140 mmol/L (136-145)
[2019-12-10 06:59] LABS: Alkaline Phosphatase 61 U/L (45-117); Bilirubin Direct < 0.1 mg/dl (0-0.2); Bilirubin,Total 0.6 mg/dl (0.2-1); Thyroid Stimulating Hormone 0.273 uIu/ml (0.300-4.500); Total Protein 6.2 gm/dl (6.4-8.2)
[2019-12-10 07:19] LABS: T4 Free Thyroxine 1.42 ng/dl (0.8-1.6)
[2019-12-10 08:10] LABS: Estimated Average Glucose 120 mg/dl; Hemoglobin A1C 5.8 % (4.5-5.6)
[2019-12-10] MEDS: LINZESS 290 MCG SCH ×3 (08:14→23:24)
[2019-12-10] MEDS: INSULIN ASPART 100 UNITS/ML 3 ML PEN SC SCH ×4 (08:19→21:56)
[2019-12-10] MEDS: FLUTICASONE/VILANTEROL 100/25MCG 14 PUFFS/INHALER INH SCH (08:19)
[2019-12-10] MEDS: LOSARTAN POTASSIUM 50 MG TAB PO SCH (08:20)
[2019-12-10] MEDS: MONTELUKAST SODIUM 10 MG TABLET PO SCH (08:20)
[2019-12-10] MEDS: FOLIC ACID 1 MG TAB PO SCH (08:20)
[2019-12-10] MEDS: FAMOTIDINE 20 MG TAB PO SCH ×2 (08:20→20:39)
[2019-12-10] MEDS: PANTOprazole 40 MG TAB PO SCH ×2 (08:20→20:39)
[2019-12-10] MEDS: ALBUTEROL HFA 8 GM INHALER INH PRN ×2 (08:20→16:38)
[2019-12-10] MEDS: THIAMINE HCL 100 MG TAB PO SCH (08:20)
[2019-12-10] MEDS: POLYETHYLENE (MIRALAX) 17 GM PACK PO SCH (08:20)
[2019-12-10] MEDS: MoRPHine SULFATE 4 MG/ML 1 ML CARP\\VIAL IV PRN ×2 (08:38→20:38)
--- NOTE | 2019-12-10 09:22 | Hospitalist Progress Note ---
Date of Service December 10, 2019 Assessment & Plan (1) Symptomatic cholelithiasis: Presented with progressively worsening nausea and vomiting over 3 months with 35 pound weight loss With cholelithiasis noted on gallbladder ultrasound and elevated AST and ALT -Patient now postoperative day 1 for lap dilia with general surgery, and seems to be uncomplicated -Continue symptomatic management as detailed below (2) Nausea & vomiting: Likely secondary to symptomatic cholelithiasis, should be improving. Patient is tolerating a diet. Monitor for improvement with Zofran. (3) LFT elevation: Transaminase elevation is likely secondary to cholelithiasis. Have improved over the past 24 hours post surgery, continue to monitor. (4) Interstitial lung disease: Chronic with bronchiectasis, follows with pulmonology. Thought to be secondary to swine flu in 2008 On chronic O2-continue O2 here -Continue home inhalers -Follow closely (5) Abnormal TSH: TSH is 0.273, can continue to monitor as an outpatient, consideration of starting a low dose of Synthroid once acute medical problems have resolved. (6) Pulmonary HTN: Noted in history and likely secondary to chronic lung disease -Follow and watch for volume overload (7) History of ETOH abuse: LFTs not consistent with alcoholic hepatitis. No evidence of acute alcohol withdrawal at this time, continue to monitor. (8) History of pulmonary embolism: Will need good DVT prophylaxis postoperatively SCDs for now (9) Type II diabetes mellitus: Hemoglobin A1c is 5.8 this morning. (10) Restless leg syndrome: Continue home ropinirole (11) GERD (gastroesophageal reflux disease): Severe and persistent, despite Pepcid use and Protonix at home -Consult GI as above -Continue Protonix twice daily and increase Pepcid to twice daily (12) HTN (hypertension): Blood pressures are elevated here She reports not been able to take her home blood pressure meds very often given all the nausea and vomiting the last few weeks -Continue home losartan -Follow BMP in the morning (13) Chronic constipation: Continue home Linzess Likely secondary to chronic opioid use (14) Anxiety: Continue lorazepam as needed She recently had her mother in the last 2 to 3 weeks (15) Chronic respiratory failure with hypoxia: Greater than 90% On chronic O2 2 L with exertion -Continue supplemental O2 here 2 L nasal cannula with a sat documented at 95%. (16) DVT prophylaxis: SCDs, add Lovenox when okay from surgical standpoint Disposition-admit to medical floor with telemetry Admission and Anticipated Discharge Date Admission Date: December 09, 2019 Subjective Patient is status post lap dilia yesterday. As she does note some mild postoperative pain in her abdomen. She also is complaining of nausea but was able to eat out 100% of breakfast has not vomited as of yet. Was about to be administered Zofran. She is remained afebrile there is otherwise no distress. Physical Exam Constitutional: cooperative; no acute distress Nonjaundiced and anicteric Neck: trachea midline, no thyromegaly Respiratory: normal respiratory effort Auscultation: lungs clear to auscultation bilaterally; no crackles, no rales, no rhonchi and no wheezes Cardiovascular: Rate/Rhythm: regular rate and regular rhythm Heart Sounds: normal S1 and normal S2 Gastrointestinal (Abdomen): Inspection/Auscultation: abdomen normal to inspection Percussion/Palpation: abdomen soft; no guarding, abdomen not rigid and no hepatosplenomegaly Subjectively tender. Patient has 2 small lap wounds visible, both appear to be appropriately healing after 24 hours. She has a small dressing over her umbilicus which is clean dry and intact, I did not disturb further. Skin: no rashes, warm and dry Results & Data Results & Data ([facility]) Vital Signs (Past 12 Hours) Vital Signs Temp Pulse Pulse Resp BP Pulse Ox 12/10/19 07:32 36.7 C 89 18 110/73 95 12/10/19 04:00 36.9 C 92 H 20 118/78 95 12/09/19 23:55 36.7 C 92 H 20 114/77 95 12/09/19 22:20 78 PG Care Time/CCT Total # of Minutes Spent Total Time Spent with Patient: Total time spent is greater than 50% in coordination of care (as documented) at patient's floor/unit and/or counseling patient: Coding Level of Care Code 51727 Subseq Hosp Care Lvl 2 Diagnoses Symptomatic cholelithiasis K80.20 Nausea & vomiting R11.2 LFT elevation R94.5 Interstitial lung disease J84.9 Abnormal TSH R79.89 Pulmonary HTN I27.20 History of ETOH abuse F10.11 History of pulmonary embolism Z86.711 Type II diabetes mellitus E11.9 Restless leg syndrome G25.81 GERD (gastroesophageal reflux disease) K21.9 HTN (hypertension) I10 Chronic constipation K59.09 Anxiety F41.9 Chronic respiratory failure with hypoxia J96.11 DVT prophylaxis Z29.9
--- NOTE | 2019-12-10 11:06 | Surgery Progress Note ---
Date of Service December 10, 2019 Assessment & Plan (1) Nausea & vomiting: s/p lap cholecystectomy. Stable from surgical standpoint. On regular diet. Encouraged to advance activity. On miralax for constipation but no bowel movement yet. Current complaints appear to be related to other medical issues. OK to discharge when these are stable. Present on Admission?: Yes Subjective POD#1 lap cholecystectomy. Complaining of incisional pain at umbilicus. Narcotic pain meds are working when she takes them,but is needing them about every 5 hours. States she has some nausea but was able to keep down her breakfast. When she coughs with her asthma attacks, makes the surgical pain worse. Review of Systems Review of Systems: Multiple other complaints - prepyloric ulcer, back issues, asthma. Physical Exam Constitutional: WD/WN, vitals as above Gastrointestinal (Abdomen): Inspection/Auscultation: + abdomen distended (mild) and normal bowel sounds Percussion/Palpation: + abdomen tender (at umbilical incision) and abdomen soft; no guarding dressings/ incisions clean and intact Psychiatric: A+Ox3, euthymic affect Results & Data Vital Signs (Past 12 Hours) Vital Signs Temp Pulse Resp BP Pulse Ox 12/10/19 11:04 37.1 C 72 18 109/76 90 12/10/19 07:32 36.7 C 89 18 110/73 95 12/10/19 04:00 36.9 C 92 H 20 118/78 95 12/09/19 23:55 36.7 C 92 H 20 114/77 95
[2019-12-10] MEDS: TRAZODONE HCL 100 MG TAB PO SCH (20:38)
[2019-12-10] MEDS: LORazepam 0.5 MG TAB PO PRN (20:38)
[2019-12-10] MEDS: ROPINIROLE HCL 1 MG TABLET PO SCH (21:20)
[2019-12-11] MEDS: MoRPHine SULFATE 4 MG/ML 1 ML CARP\\VIAL IV PRN (01:25)
[2019-12-11] MEDS: SODIUM CHLORIDE 0.9% 1000ML 1,000 ML IV SCH ×2 (01:25→13:19)
[2019-12-11] MEDS ORDERED: BENZONATATE 100 MG CAPSULE PO PRN (02:02)
[2019-12-11] MEDS: HYDROCODONE/ACETAMOPHEN 5/325MG TAB PO PRN ×2 (06:17→16:32)
[2019-12-11] MEDS: CYCLOBENZAPRINE HCL 10 MG TAB PO PRN (06:29)
[2019-12-11 06:42] LABS: Basophils # (auto) 0.04 K/uL (0-0.2); Basophils % (auto) 0.6 %; Eosinophils # (auto) 0.23 K/uL (0-0.5); Eosinophils % (auto) 3.5 %; Hematocrit (blood only) 39.7 % (37-47); Hemoglobin 13.2 g/dL (12.0-16.0); Immature Granulocytes # (auto) 0.01 K/uL (0.00-0.02); Immature Granulocytes % (auto) 0.2 %; Lymphocytes # (auto) 2.45 K/uL (1.2-3.4); Lymphocytes % (auto) 37.3 %; Mean Corpuscular Hemoglobin 33.1 pg (25-34); Mean Corpuscular Hgb Conc 33.2 g/dL (32-36); Mean Corpuscular Volume 99.5 fL (80-100); Mean Platelet Volume 11.1 fL (7.4-10.4); Monocytes # (auto) 0.54 K/uL (0.11-0.59); Monocytes % (auto) 8.2 %; Neutrophils # (auto) 3.29 K/uL (1.4-6.5); Neutrophils % (auto) 50.2 %; Platelet Count 158 K/uL (130-400); RDW Coefficient of Variation 12.6 % (11.5-14.5); RDW Standard Deviation 46.3 fL (36.4-46.3); Red Blood Count 3.99 M/uL (4.2-5.4); White Blood Count 6.56 K/uL (4.8-10.8)
[2019-12-11 07:21] LABS: Albumin Globulin Ratio 1.1 (0.9-2); Albumin Level 3.2 gm/dl (3.4-5.0); BUN Creatinine Ratio 14.5 (10-20); Bilirubin,Total 0.6 mg/dl (0.2-1); Calcium 7.6 mg/dl (8.5-10.1); Creatinine Clr Calc Pharmacy 101.6 ml/min; Est GFR (African American) 118.5; Est GFR (Non-African American) 102.2; Globulin 2.8 gm/dl (2.5-4.0)
[2019-12-11] MEDS ORDERED: bisacodyL 10 MG SUPP PR ONE (08:45)
[2019-12-11] MEDS ORDERED: INDAPAMIDE 1.25 MG TAB PO SCH (09:00)
[2019-12-11] MEDS: FAMOTIDINE 20 MG TAB PO SCH (09:11)
[2019-12-11] MEDS: MONTELUKAST SODIUM 10 MG TABLET PO SCH (09:12)
[2019-12-11] MEDS: POLYETHYLENE (MIRALAX) 17 GM PACK PO SCH (09:12)
[2019-12-11] MEDS: LOSARTAN POTASSIUM 50 MG TAB PO SCH (09:12)
[2019-12-11] MEDS: FOLIC ACID 1 MG TAB PO SCH (09:12)
[2019-12-11] MEDS: THIAMINE HCL 100 MG TAB PO SCH (09:12)
[2019-12-11] MEDS: PANTOprazole 40 MG TAB PO SCH (09:12)
[2019-12-11] MEDS: LINZESS 290 MCG SCH ×2 (09:13→15:01)
[2019-12-11] MEDS: INSULIN ASPART 100 UNITS/ML 3 ML PEN SC SCH ×3 (09:13→17:20)
[2019-12-11] MEDS: FLUTICASONE/VILANTEROL 100/25MCG 14 PUFFS/INHALER INH SCH (09:15)
--- NOTE | 2019-12-11 11:39 | Surgery Progress Note ---
Date of Service December 11, 2019 Assessment & Plan (1) Nausea & vomiting: s/p lap cholecystectomy. Stable from surgical standpoint. On regular diet. Encouraged to advance activity. No new recommendations. Stable for discharge from surgical standpoint. Subjective POD#2 lap cholecystectomy. Sleeping comfortably currently. No new complaints. On regular diet. Physical Exam Constitutional: WD/WN, vitals as above Gastrointestinal (Abdomen): Inspection/Auscultation: normal bowel sounds Percussion/Palpation: + abdomen tender (at umbilical incision) and abdomen soft; no guarding Psychiatric: A+Ox3, euthymic affect Results & Data Vital Signs (Past 12 Hours) Vital Signs Temp Pulse Pulse Resp BP BP Pulse Ox 12/11/19 11:28 36.8 C 69 18 100/64 98 12/11/19 08:35 70 12/11/19 07:43 36.6 C 70 20 103/68 96 12/11/19 03:47 36.8 C 75 18 108/72 95 12/11/19 00:11 37.0 C 73 20 110/74 96
[2019-12-11] MEDS ORDERED: MAGNESIUM HYDROXIDE SUSP 30 ML UDC PO ONE (13:00)
--- NOTE | 2019-12-11 15:18 | Hospitalist Progress Note ---
Date of Service December 11, 2019 Assessment & Plan (1) Symptomatic cholelithiasis: -Patient now postoperative day 2 for lap dilia with general surgery, and seems to be uncomplicated -Continue symptomatic management as detailed below (2) Nausea & vomiting: Likely secondary to symptomatic cholelithiasis, should be improving. Patient is tolerating a diet. Monitor for improvement with Zofran. (3) LFT elevation: Transaminases are almost normalized status post surgery. Will recheck in the morning. (4) Interstitial lung disease: Chronic with bronchiectasis, follows with pulmonology. Thought to be secondary to swine flu in 2008 On chronic O2-continue O2 here -Continue home inhalers -Follow closely (5) Abnormal TSH: TSH is 0.273, can continue to monitor as an outpatient, consideration of starting a low dose of Synthroid once acute medical problems have resolved. (6) Pulmonary HTN: Noted in history and likely secondary to chronic lung disease -Follow and watch for volume overload (7) History of ETOH abuse: LFTs not consistent with alcoholic hepatitis. No evidence of acute alcohol withdrawal at this time, continue to monitor. (8) History of pulmonary embolism: Will need good DVT prophylaxis postoperatively SCDs for now (9) Type II diabetes mellitus: Hemoglobin A1c is 5.8 this morning. (10) Restless leg syndrome: Continue home ropinirole (11) GERD (gastroesophageal reflux disease): Severe and persistent, despite Pepcid use and Protonix at home -Consult GI as above -Continue Protonix twice daily and increase Pepcid to twice daily (12) HTN (hypertension): Blood pressures are elevated here She reports not been able to take her home blood pressure meds very often given all the nausea and vomiting the last few weeks -Continue home losartan -Follow BMP in the morning (13) Chronic constipation: Continue home Linzess Likely secondary to chronic opioid use (14) Anxiety: Continue lorazepam as needed She recently had her mother in the last 2 to 3 weeks (15) Chronic respiratory failure with hypoxia: Greater than 90% On chronic O2 2 L with exertion -Continue supplemental O2 here 2 L nasal cannula with a sat documented at 95%. (16) DVT prophylaxis: SCDs, add Lovenox when okay from surgical standpoint Disposition-admit to medical floor with telemetry Admission and Anticipated Discharge Date Admission Date: December 11, 2019 Subjective Patient is tolerating regular diet. Has not yet had a bowel movement. Is complaining of pain in her abdomen which is mostly postsurgical but she does have some cramping pain from constipation as well. She has had no nausea or vomiting. She is remained afebrile. Blood pressure is within normal limits. Physical Exam Constitutional: no acute distress Neck: trachea midline, no thyromegaly Respiratory: normal respiratory effort Auscultation: lungs clear to auscultation bilaterally; no crackles, no rales, no rhonchi and no wheezes Cardiovascular: Rate/Rhythm: regular rate and regular rhythm Heart Sounds: normal S1, normal S2 and + murmur Gastrointestinal (Abdomen): Inspection/Auscultation: abdomen normal to inspection Percussion/Palpation: abdomen soft; abdomen nontender, no gua rding, abdomen not rigid and no hepatosplenomegaly Small surgical wounds as described previously, appear to be healing appropriately. Midline dressing, did not disturb. Clean dry and intact. Skin: no rashes, warm and dry Results & Data Results & Data ([facility]) Vital Signs (Past 12 Hours) Vital Signs Temp Pulse Pulse Resp BP BP Pulse Ox 12/11/19 15:02 71 12/11/19 12:42 125/83 95 12/11/19 11:28 36.8 C 69 18 100/64 98 12/11/19 08:35 70 12/11/19 07:43 36.6 C 70 20 103/68 96 12/11/19 03:47 36.8 C 75 18 108/72 95 PG Care Time/CCT Total # of Minutes Spent Total Time Spent with Patient: Total time spent is greater than 50% in coordination of care (as documented) at patient's floor/unit and/or counseling patient: Coding Diagnoses Symptomatic cholelithiasis K80.20 Nausea & vomiting R11.2 LFT elevation R94.5 Interstitial lung disease J84.9 Abnormal TSH R79.89 Pulmonary HTN I27.20 History of ETOH abuse F10.11 History of pulmonary embolism Z86.711 Type II diabetes mellitus E11.9 Restless leg syndrome G25.81 GERD (gastroesophageal reflux disease) K21.9 HTN (hypertension) I10 Chronic constipation K59.09 Anxiety F41.9 Chronic respiratory failure with hypoxia J96.11 DVT prophylaxis Z29.9
--- NOTE | 2019-12-11 15:44 | Discharge Summary ---
Date of Service December 11, 2019 Admission HPI Per Admitting Provider This patient is a 54-year-old female with a history of pulmonary hypertension, interstitial lung disease/restrictive lung disease with bronchiectasis with history of tracheostomy, chronic sinusitis, chronic hypoxic respiratory failure, AVNRT status post ablation, GERD, chronic constipation, HTN, RLS, DM 2, chronic low back pain on opioids, and 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 She presents to the ER with 3 months of progressively worsening nausea/vomiting and a 35 pound weight loss. She has some right upper quadrant abdominal pains. Her nausea and vomiting has been especially worse in the last week and has not been able to take any of her usual medications for the last 3 to 4 weeks. She denies any fever sweats or chills, no diarrhea. In fact, her last bowel movement was 2 or 3 days ago. She does report that she has had significant heartburn despite taking Pepcid and Protonix at home. She reports that her friend made her a warm drink of liliana to help her feel better last night but that normally she has not been drinking for years. Her mother just and she had her last week. She has been very anxious about this. In the ER, she had elevated AST and ALT but normal bilirubin and alkaline phosphatase. Her alcohol level was positive at 92. She did not have a leukocytosis and was afebrile. She was tachycardic and hypertensive. The right upper quadrant ultrasound revealed cholelithiasis with a stone in the neck but no CBD dilatation and no evidence of cholecystitis. General surgery saw in the ER and determined they would likely take her for a laparoscopic cholecystectomy today. Admission Exam Per Admitting Provider Constitutional: WD/WN, vitals as above + obese Eyes: PERRL, conjunctivae normal, anicteric sclerae ENMT: external ear and nose normal, oropharynx normal Neck: trachea midline, no thyromegaly Respiratory: normal respiratory effort, lungs clear to auscultation Cardiovascular: RRR, no murmur, no edema Chest (Breasts): Chest: normal inspection of chest Gastrointestinal (Abdomen): Inspection/Auscultation: abdomen normal to inspection and normal bowel sounds Percussion/Palpation: + abdomen tender (In right upper quadrant without guarding or rebound) and abdomen soft; no hepatosplenomegaly, no hernia and no abdominal mass Musculoskeletal: Extremities: extremities normal to inspection; no cyanosis and no clubbing Skin: no rashes, warm and dry Neurologic: moves all extremities and awake; no focal motor deficits Psychiatric: A+Ox3, euthymic affect Lymphatic: no lymphedema Principal Diagnosis 1. Abdominal pain, likely secondary to symptomatic cholelithiasis. Status post lap cholecystectomy on 12/09/[address] Gramajo 2. Chronic constipation, takes Lunesta at home 3. History of chronic alcoholism 4. Questionable type 2 diabetes mellitus. Hemoglobin A1c is 5.8. 5. GERD by history 6. Hypertension by history Discharge Exam Constitutional cooperative; no acute distress Anicteric nonjaundiced Neck trachea midline, no thyromegaly Respiratory normal respiratory effort Auscultation: lungs clear to auscultation bilaterally; no crackles, no rales, no rhonchi and no wheezes Cardiovascular Rate/Rhythm: regular rate and regular rhythm Heart Sounds: normal S1 and normal S2 Gastrointestinal (Abdomen) Inspection/Auscultation: abdomen normal to inspection Percussion/Palpation: abdomen soft; abdomen nontender, no guarding, abdomen not rigid and no hepatosplenomegaly Soft, mildly distended. To lap wounds that appear to be healing appropriately. Midline surgical dressing, clean dry and intact. Did not disturb further. Skin no rashes, warm and dry Discharge Data Allergies Allergy/AdvReac Type Severity Reaction Status Date / Time house dust Allergy Intermediate Difficulty Verified 12/09/19 22:06 Breathing red dye Allergy Intermediate RED FOOD Verified 12/09/19 04:33 DYE CAUSES SEVERE ASTHMA ATTACK yellow dye Allergy Intermediate YELLOW Verified 12/09/19 04:33 FOOD DYE CAUSES SEVERE ASTHMA ATTACK diphtheria toxoid,fluid Allergy Mild Unknown Verified 12/09/19 04:33 tetanus toxoid, adsorbed Allergy Mild Unknown Verified 12/09/19 04:33 mold Allergy Unknown ASTHMA Verified 12/09/19 04:33 ATTACK Consultations 12/09/19 06:22 ED Decision to Admit Stat 12/09/19 12:30 Consult Gastroenterology Routine Consult General Surgery Routine Procedures Performed Operation Date: 12/09/19 07:00 Actual Procedures p Laparoscopic Cholecystectomy(Not Applicable) - Aime Gramajo, Ordered Studies 12/09/19 05:07 US abdomen limited Urgent Hospital Course (1) Symptomatic cholelithiasis: -Patient now postoperative day 2 for lap dilia with general surgery, and seems to be uncomplicated -Continue symptomatic management as detailed below -Patient is tolerating a regular diet, has not yet had a bowel movement but claims that she has chronic constipation on only moves her bowels once every several days (2) Nausea & vomiting: Likely secondary to symptomatic cholelithiasis, should be improving. Patient is tolerating a diet. Monitor for improvement with Zofran. (3) LFT elevation: Transaminases are almost normalized status post surgery. Will recheck in the morning. (4) Interstitial lung disease: Chronic with bronchiectasis, follows with pulmonology. Thought to be secondary to swine flu in 2008 On chronic O2-continue O2 here -Continue home inhalers -Follow closely (5) Abnormal TSH: TSH is 0.273, can continue to monitor as an outpatient, consideration of starting a low dose of Synthroid once acute medical problems have resolved. (6) Pulmonary HTN: Noted in history and likely secondary to chronic lung disease -Follow and watch for volume overload (7) History of ETOH abuse: LFTs not consistent with alcoholic hepatitis. No evidence of acute alcohol withdrawal at this time, continue to monitor. (8) History of pulmonary embolism: Will need good DVT prophylaxis postoperatively SCDs for now (9) Type II diabetes mellitus: Hemoglobin A1c is 5.8 this morning. (10) Restless leg syndrome: Continue home ropinirole (11) GERD (gastroesophageal reflux disease): Severe and persistent, despite Pepcid use and Protonix at home -Consult GI as above -Continue Protonix twice daily and increase Pepcid to twice daily (12) HTN (hypertension): Blood pressures are elevated here She reports not been able to take her home blood pressure meds very often given all the nausea and vomiting the last few weeks -Continue home losartan -Follow BMP in the morning (13) Chronic constipation: Continue home Linzess Likely secondary to chronic opioid use (14) Anxiety: Continue lorazepam as needed She recently had her mother in the last 2 to 3 weeks (15) Chronic respiratory failure with hypoxia: Greater than 90% On chronic O2 2 L with exertion -Continue supplemental O2 here 2 L nasal cannula with a sat documented at 95%. (16) DVT prophylaxis: SCDs, add Lovenox when okay from surgical standpoint Disposition-okay to discharge home, will need to follow-up with her PCP as well as with general surgeon as previously recommended. Patient has hydrocodone at home and uses for pain as needed. Total Time Total Time Spent Total Time Spent (In Minutes): Discharge preparation in excess of 30 minutes Total Time Includes: Examination of the Patient, Discharge Planning and Medication Reconciliation Discharge Plan Discharge Items Patient Disposition: Home - Self-Care Reason For Visit: INTRACTABLE VOMITING,CHOLELITHIASIS Discharge Diagnosis: laparoscopic cholecystectomy Condition on Discharge: Good Activity: Per Instructions section Lifting: No more than 10 pounds Bathing Comment: may shower; no soaking in tubs Exercise/Sports: Wait until after follow-up appointment Driving/Machine Use: No limitations Non-emergency contact: Primary Care Provider and Surgeon Call non-emergency contact if: you have any medication questions, your symptoms worsen, your pain is not controlled, your pain is worsening, your pain is unusual for you, you have a fever, your temperature is above 101.5, your wound has increased redness, your wound has increased drainage and your wound pain has increased Follow-up/Referrals: Uvaldo Mancini MD [Primary Care Provider] - Aime Gramajo DO [Surgeon] - (Please call the office to schedule follow up in clinic within 2 weeks) Diet: Regular Addtl Attending Provider Instructions: You may resume your Hydrocodone-Acetaminophen that you recently filled if needed for pain. You may take 1-2 tabs orally every 4-6 hours, as needed for moderate to severe pain for the first couple days, then taper back to your originally prescribed regimen. Pending Studies at Discharge: Yes Studies:: surgical pathology Stand-Alone Forms: My [facility] Medications and DC Order Prescriptions: Continued albuterol sulfate [Ventolin HFA] 90 mcg/actuation HFA aerosol inhaler See Rx Instructions .ROUTE .COMPLEX Qty: 54 RF: 2 losartan 100 mg tablet 100 mg PO DAILY Qty: 90 RF: 3 montelukast 10 mg tablet 10 mg PO DAILY Qty: 30 RF: 5 cyclobenzaprine 10 mg tablet 10 mg PO TID PRN (Reason: muscle spasm) Qty: 90 RF: 1 trazodone 100 mg tablet 200 mg PO HS Qty: 180 RF: 3 famotidine 20 mg tablet 20 mg PO DAILY Qty: 90 RF: 1 ropinirole 1 mg tablet 1 mg PO DAILY Qty: 60 RF: 5 Linzess 290 mcg capsule 290 mcg PO DAILY Qty: 30 RF: 2 diclofenac sodium [Voltaren] 1 % gel 2 gm TOP QID Qty: 100 RF: 3 hydrocodone-acetaminophen 5-325 mg tablet 1 tab PO Q8H PRN (Reason: pain) Qty: 60 RF: 0 lorazepam 1 mg tablet 0.5 mg PO TID PRN (Reason: anxiety) Qty: 20 RF: 0 psyllium husk [Fiber (psyllium husk)] 0.52 gram capsule 2.6 gm PO DAILY RF: 0 Centrum Complete 18-400 mg-mcg tablet 1 tab PO DAILY RF: 0 metformin 500 mg tablet extended release 24 hr 500 mg PO DAILY Qty: 30 RF: 2 albuterol sulfate 2.5 mg /3 mL (0.083 %) Solution For Nebulization 2.5 mg INHALATION QID PRN (Reason: Shortness Of Breath) RF: 0 pantoprazole 40 mg tablet,delayed release (DR/EC) 40 mg PO BID RF: 0 gabapentin 300 mg capsule 300 mg PO BID PRN (Reason: Pain) RF: 0 polyethylene glycol 3350 17 gram/dose powder 17 g PO DAILY RF: 0 melatonin 10 mg Tablet 10 mg PO HS PRN (Reason: Sleep) RF: 0 Breo Ellipta 100-25 mcg/dose Blister With Device 1 inh INHALATION DAILY RF: 0 pseudoephedrine HCl [Sudafed 12 Hour] 120 mg tablet extended release 120 mg PO Q12H PRN (Reason: Nasal Congestion) RF: 0 fluticasone propionate [Flonase Allergy Relief] 50 mcg/actuation spray,suspension 1 sprays INTNAS DAILY PRN (Reason: Nasal Congestion) RF: 0 Discharge Orders: Discharge Order (Routine); Ordered 12/11/19 Ordered By: Jadiel Cornejo Admission Data Admit Date/Time: 12/11/19 09:48 Attending Provider: Jadiel Cornejo Admit Provider: Brenda Shelton Primary Care Provider: Uvaldo Mancini Other Providers: Dmitriy Henry ; Taiwo Barajas ; Aime Gramajo Coding Level of Care Code D/C Day Management >30 mins Diagnoses Symptomatic cholelithiasis K80.20 Nausea & vomiting R11.2 LFT elevation R94.5 Interstitial lung disease J84.9 Abnormal TSH R79.89 Pulmonary HTN I27.20 History of ETOH abuse F10.11 History of pulmonary embolism Z86.711 Type II diabetes mellitus E11.9 Restless leg syndrome G25.81 GERD (gastroesophageal reflux disease) K21.9 HTN (hypertension) I10 Chronic constipation K59.09 Anxiety F41.9 Chronic respiratory failure with hypoxia J96.11 DVT prophylaxis Z29.9
== END 2019-12-11 19:00 | disposition home or self-care (01) ==
LOC: ED 03:04 → 2N 08:47 → OR 08:47 → SUATTDRO 08:48
DX: I10 Essential (primary) hypertension; G25.81 Restless legs syndrome; Z79.899 Other long term (current) drug therapy; I27.20 Pulmonary hypertension, unspecified; Z86.711 Personal history of pulmonary embolism; K59.09 Other constipation; E11.9 Type 2 diabetes mellitus without complications; K21.9 Gastro-esophageal reflux disease without esophagitis; Z88.7 Allergy status to serum and vaccine; J96.11 Chronic respiratory failure with hypoxia; R94.5 Abnormal results of liver function studies; K80.10 Calculus of gallbladder with chronic cholecystitis without obstruction; J84.9 Interstitial pulmonary disease, unspecified; F41.9 Anxiety disorder, unspecified; Z88.8 Allergy status to other drugs, medicaments and biological substances; R94.6 Abnormal results of thyroid function studies

== ENCOUNTER 2020-05-20 15:01 | Inpatient (IN) ==
[2020-05-20] MEDS ORDERED: NITROGLYCERIN 2% OINTMENT 30GM TUBE EXT STA (15:55)
--- NOTE | 2020-05-20 16:00 | Emergency Department Note ---
History of Present Illness General Chief complaint: Shortness of Breath/Dyspnea Stated complaint: CHF Time Seen by Provider: 05/20/20 15:44 Source: patient History of Present Illness Provider complaint: Chest pain Onset (ago): day(s) Location: chest Radiation: non-radiation Pain Consistency: + constant Maximum Pain Intensity: 7 Quality: + other (Someone sitting on her chest) Relieved By: + none Associated symptoms: + chest pain, + cough (Productive cough with yellow sputum for months) and + shortness of breath; no fever/chills and no nausea/vomiting This is a 55-year-old female with a history of CHF presenting with worsening shortness of breath and chest discomfort. She states that she was just discharged from the hospital at [facility] 3 days ago. She was having the same shortness of breath and chest discomfort throughout her hospitalization and in the past 3 days. It did get worse today. She describes her chest discomfort as someone sitting on her chest. She rates it a 7 out of 10 in severity. She was told that she had congestive heart failure at [facility]. She denies any fever but states that she has had a productive cough for months. She was tested at [facility] and had a negative COVID-19 test. She denies any abdominal pain, vomiting, diarrhea or any other concerns at this time. She does state that she gets lightheaded when she stands up. Home Medications Home Medications Medication Instructions Recorded Confirmed Type Breo Ellipta 1 inh INHALATION DAILY 07/05/18 05/20/20 History albuterol sulfate 2.5 mg INHALATION QID PRN 07/05/18 05/20/20 History gabapentin 300 mg PO BID PRN 07/05/18 05/20/20 History melatonin 10 mg PO HS PRN 07/05/18 05/20/20 History polyethylene glycol 3350 17 g PO DAILY PRN 07/05/18 05/20/20 History albuterol sulfate 90 mcg/actuation See Rx Instructions .ROUTE 07/15/19 05/20/20 Rx aerosol inhaler .COMPLEX #54 gram trazodone 100 mg tablet 200 mg PO HS #180 tab 08/23/19 05/20/20 Rx multivitamin-ferrous 1 tab PO DAILY 09/21/19 05/20/20 History fumarate-folic acid 18 mg-400 mcg tablet psyllium husk 0.52 gram capsule 2.6 gm PO DAILY PRN cap 09/21/19 05/20/20 History pseudoephedrine HCl [Sudafed 12 120 mg PO Q12H PRN 12/09/19 05/20/20 History Hour] diclofenac sodium 1 % topical gel 2 gm TOP QID #100 gm 01/06/20 05/20/20 Rx famotidine 20 mg tablet 20 mg PO BID #180 tab 01/06/20 05/20/20 Rx fluticasone propionate 50 1 sprays INTNAS DAILY PRN #47.4 ml 01/06/20 05/20/20 Rx mcg/actuation nasal spray,suspension linaclotide 290 mcg capsule 290 mcg PO DAILY #90 cap 01/06/20 05/20/20 Rx naproxen 500 mg tablet 500 mg PO BID PRN #180 tab 01/06/20 05/20/20 Rx pantoprazole 40 mg tablet,delayed 40 mg PO BID #180 tab 01/06/20 05/20/20 Rx release ropinirole 1 mg tablet 1 mg PO DAILY #90 tab 01/06/20 05/20/20 Rx ondansetron 4 mg disintegrating 4 mg PO Q8H PRN #30 tab 02/17/20 05/20/20 Rx tablet cyclobenzaprine 10 mg tablet 10 mg PO TID PRN #90 tab 02/28/20 05/20/20 Rx montelukast 10 mg tablet 10 mg PO DAILY #30 tab 03/19/20 05/20/20 Rx hydrocodone 5 mg-acetaminophen 325 See Rx Instructions .ROUTE 05/02/20 05/20/20 Rx mg tablet .COMPLEX #60 tab lorazepam 1 mg tablet 0.5 mg PO TID PRN #20 tab 05/02/20 05/20/20 Rx citalopram [Celexa] 20 mg PO DAILY 05/20/20 05/20/20 History furosemide [Lasix] 40 mg PO DAILY 05/20/20 05/20/20 History ibuprofen 600 mg PO TID PRN 05/20/20 05/20/20 History losartan 100 mg PO HS 05/20/20 05/20/20 History Allergies Allergy/AdvReac Type Severity Reaction Status Date / Time house dust Allergy Intermediate Difficulty Verified 05/20/20 16:42 Breathing red dye Allergy Intermediate RED FOOD Verified 05/20/20 16:42 DYE CAUSES SEVERE ASTHMA ATTACK yellow dye Allergy Intermediate YELLOW Verified 05/20/20 16:42 FOOD DYE CAUSES SEVERE ASTHMA ATTACK diphtheria toxoid,fluid Allergy Mild Unknown Verified 05/20/20 16:42 tetanus toxoid, adsorbed Allergy Mild Unknown Verified 05/20/20 16:42 mold Allergy Unknown ASTHMA Verified 05/20/20 16:42 ATTACK Past Med/Surg History Medical History Abnormal TSH Aggressive behavior Alcohol intoxication Anxiety Asthma with exacerbation 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) Bronchitis Chronic constipation Chronic respiratory failure with hypoxia Contusion of face (04/27/11) COPD (chronic obstructive pulmonary disease) Depression Foot contusion Gastroenteritis GERD (gastroesophageal reflux disease) History of ETOH abuse History of Guillain-[place] syndrome History of pulmonary embolism HTN (hypertension) Interstitial lung disease Mood disorder Pulmonary HTN Restless leg syndrome Type II diabetes mellitus Surgical History History of radiofrequency ablation procedure for cardiac arrhythmia History of tracheostomy Status post craniectomy Status post insertion of percutaneous endoscopic gastrostomy (PEG) tube Family History Other No significant family history Social History Smoking Status: Never smoker Second Hand Exposure: No; Hx Alcohol Use: Yes Alcohol type: wine Hx Substance Use: No Preferred Language: Spanish Communication Ability: Effective Visual Impairment: No 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 and A total of 10 systems reviewed and were otherwise negative Physical Exam Vital Signs Vital Signs - 24 hr 05/20/20 15:02 05/20/20 15:13 05/20/20 16:20 Temperature 36.7 C Temperature Source Oral Pulse Rate 103 H 85 Pulse Rate from SpO2 Sensor 75 Respiratory Rate 19 18 Blood Pressure 159/89 H 126/83 Blood Pressure Mean 112 91 Pulse Oximetry 100 92 99 Oxygen Delivery Method Nasal Cannula Oxygen Flow Rate 3 Sepsis Recent Fever Within 48 Hours No Sepsis New/Unexplained Change in Mental Status N/A Sepsis Action Taken by Nursing No Action Required 05/20/20 16:27 05/20/20 16:30 05/20/20 17:00 Temperature Temperature Source Pulse Rate 72 75 Pulse Rate from SpO2 Sensor Respiratory Rate 15 13 Blood Pressure 119/83 124/73 Blood Pressure Mean 108 96 Pulse Oximetry 100 Oxygen Delivery Method Room Air Oxygen Flow Rate Sepsis Recent Fever Within 48 Hours Sepsis New/Unexplained Change in Mental Status Sepsis Action Taken by Nursing Constitutional: Vital signs reviewed. Eyes: Pupils are equal round reactive to light. Conjunctiva are noninjected. ENT: Pharynx is clear without erythema or exudate. Mucous membranes are moist. Neck supple without meningeal signs. Respiratory: Clear to auscultation bilaterally. Breath sounds are equal bilate rally. No wheezing or rales. Cardiovascular: Regular rate and rhythm. No rubs or gallops. GI: Soft, nondistended and nontender. Bowel sounds are present. Musculoskeletal: No peripheral edema. No lower extremity tenderness. Integumentary: No cyanosis. or jaundice. Neurological: The patient is awake and alert. No focal deficits. Psychiatric: Normal affect. Not anxious appearing. Course Administered Medications Famotidine (Famotidine 20 Mg Tab) 20 mg PO BID EN Stop: 06/19/20 20:59 Last Admin: 05/20/20 21:05 Dose: 20 mg Documented by: [id number] Gabapentin (Gabapentin 300 Mg Cap) 300 mg PO BID EN Stop: 06/19/20 20:59 Last Admin: 05/20/20 21:06 Dose: 300 mg Documented by: [id number] Losartan Potassium (Losartan Potassium 50 Mg Tab) 100 mg PO HS EN Stop: 06/19/20 20:59 Last Admin: 05/20/20 21:04 Dose: 100 mg Documented by: [id number] Montelukast Sodium (Montelukast Sodium 10 Mg Tablet) 10 mg PO HS EN Stop: 06/19/20 20:59 Last Admin: 05/20/20 21:04 Dose: 10 mg Documented by: [id number] Pantoprazole Sodium (Pantoprazole 40 Mg Tab) 40 mg PO BID EN Stop: 06/19/20 20:59 Last Admin: 05/20/20 21:04 Dose: 40 mg Documented by: [id number] Ropinirole HCl (Ropinirole Hcl 1 Mg Tablet) 1 mg PO EN Stop: 06/19/20 20:59 Last Admin: 05/20/20 21:04 Dose: 1 mg Documented by: [id number] Discontinued Medications Nitroglycerin (Nitroglycerin 2% Ointment 30gm Tube) 0.5 inch EXT NOW STA Stop: 05/20/20 15:56 Last Admin: 05/20/20 16:21 Dose: 0.5 inch Documented by: [id number] Medical Decision Making Differential Diagnosis Unstable angina, ND, pleurisy, pneumonia, CHF exacerbation, COPD exacerbation Medical Records Attestation: I reviewed the patient's medical records. I did perform a limited focused review of portions of the patient's old chart on the electronic medical record. The patient has had no recent pertinent visits to this hospital. Home Medications Current Medication List: was personally reviewed by me Laboratory Data Attestation: I reviewed the patient's lab results. Result diagrams: 05/20/20 16:25 05/20/20 16:25 Lab Results 05/20/20 05/20/20 05/20/20 Range/Units 16:25 16:25 16:25 WBC 6.12 (4.8-10.8) K/uL RBC 4.60 (4.2-5.4) M/uL Hgb 15.2 (12.0-16.0) g/dL Hct 44.2 (37-47) % MCV 96.1 (80-100) fL MCH 33.0 (25-34) pg MCHC 34.4 (32-36) g/dL RDW Std Deviation 43.1 (36.4-46.3) fL RDW Coeff of Joyce 12.3 (11.5-14.5) % Plt Count 225 (130-400) K/uL MPV 10.9 H (7.4-10.4) fL Immature Gran % (Auto) 0.2 % Neut % (Auto) 55.8 % Lymph % (Auto) 31.9 % Lipscomb % (Auto) 9.2 % Eos % (Auto) 2.1 % Baso % (Auto) 0.8 % Neut # (Auto) 3.42 (1.4-6.5) K/uL Lymph # (Auto) 1.95 (1.2-3.4) K/uL Lipscomb # (Auto) 0.56 (0.11-0.59) K/uL Eos # (Auto) 0.13 (0-0.5) K/uL Baso # (Auto) 0.05 (0-0.2) K/uL Immature Gran # (Auto) 0.01 (0.00-0.02) K/uL PT Cancelled INR Cancelled APTT Cancelled PTT Ratio Cancelled Sodium 140 (136-145) mmol/L Potassium 4.0 (3.5-5.1) mmol/L Chloride 104 (98-107) mmol/L Carbon Dioxide 29 (21-32) mmol/L Anion Gap 8.0 (3-11) BUN 22 H (7-18) mg/dl Creatinine 0.88 (0.6-1.2) mg/dl Est Cr Clr Drug Dosing 69.9 ml/min Est GFR ( Amer) 85.7 Est GFR (Non-Af Amer) 74.0 BUN/Creatinine Ratio 24.7 H (10-20) Glucose 119 H (70-99) mg/dl Calcium 9.0 (8.5-10.1) mg/dl Total Bilirubin 0.5 (0.2-1) mg/dl AST 30 (15-37) U/L ALT 51 (12-78) U/L Alkaline Phosphatase 95 (45-117) U/L Troponin I < 0.015 (0-0.045) ng/ml NT-Pro-B Natriuret Pep 184 (0-900) pg/ml Total Protein 7.4 (6.4-8.2) gm/dl Albumin 4.2 (3.4-5.0) gm/dl Globulin 3.2 (2.5-4.0) gm/dl Albumin/Globulin Ratio 1.3 (0.9-2) Lipase 60 L (73-393) U/L 05/20/20 Range/Units 18:26 WBC (4.8-10.8) K/uL RBC (4.2-5.4) M/uL Hgb (12.0-16.0) g/dL Hct (37-47) % MCV (80-100) fL MCH (25-34) pg MCHC (32-36) g/dL RDW Std Deviation (36.4-46.3) fL RDW Coeff of Joyce (11.5-14.5) % Plt Count (130-400) K/uL MPV (7.4-10.4) fL Immature Gran % (Auto) % Neut % (Auto) % Lymph % (Auto) % Lipscomb % (Auto) % Eos % (Auto) % Baso % (Auto) % Neut # (Auto) (1.4-6.5) K/uL Lymph # (Auto) (1.2-3.4) K/uL Lipscomb # (Auto) (0.11-0.59) K/uL Eos # (Auto) (0-0.5) K/uL Baso # (Auto) (0-0.2) K/uL Immature Gran # (Auto) (0.00-0.02) K/uL PT 10.8 INR 1.0 APTT 26.3 PTT Ratio 0.9 Sodium (136-145) mmol/L Potassium (3.5-5.1) mmol/L Chloride (98-107) mmol/L Carbon Dioxide (21-32) mmol/L Anion Gap (3-11) BUN (7-18) mg/dl Creatinine (0.6-1.2) mg/dl Est Cr Clr Drug Dosing ml/min Est GFR ( Amer) Est GFR (Non-Af Amer) BUN/Creatinine Ratio (10-20) Glucose (70-99) mg/dl Calcium (8.5-10.1) mg/dl Total Bilirubin (0.2-1) mg/dl AST (15-37) U/L ALT (12-78) U/L Alkaline Phosphatase (45-117) U/L Troponin I (0-0.045) ng/ml NT-Pro-B Natriuret Pep (0-900) pg/ml Total Protein (6.4-8.2) gm/dl Albumin (3.4-5.0) gm/dl Globulin (2.5-4.0) gm/dl Albumin/Globulin Ratio (0.9-2) Lipase (73-393) U/L Imaging Data Radiologist's Impression: XR chest 1V portable HISTORY: 55 years-old Female Chest Pain . Acute atypical chest pain COMPARISON: Acute abdominal series radiographs 12/09/2019 TECHNIQUE: Portable AP view of the chest FINDINGS: Cardiomediastinal and hilar silhouettes are unchanged. The patient is slightly rotated. Chronic interstitial coarsening. Mild right hemidiaphragmatic elevation. No pneumothorax, large pleural effusion or overt pulmonary edema. Bones appear grossly intact. IMPRESSION: No acute process. ACT 112: Negative or not required by law. The above report was generated using voice recognition software. It may contain grammatical, syntax or spelling errors. Electronically signed by: Kev Fountain M.D. 05/20/2020 4:10 PM Dictated: 05/20/20 1604 Transcribed: 05/20/20 1604 ECG Data Attestation: I personally reviewed and interpreted this ECG as follows: Indication: + chest pain Rate (beats per minute): [address] segments: no ST elevation ECG Findings: + Q waves (3 and aVF, V1-2); no PVCs Comparison ECG Date: from (December 09, 2019) Change: no significant change Blood Pressure Blood Pressure Findings: Elevated blood pressure Blood Pressure Disposition: Referred to patients primary care provider MDM Narrative I did evaluate the patient as noted above. I did treat her with Nitropaste 0.5 inches to the anterior chest wall. IV access was established. I did place an order for continuous cardiac monitoring. The monitor showed normal sinus rhythm at a rate of 98. I did order and personally review the patient's 12-lead EKG as described above. She has no new ischemic changes. She has old Q waves in the inferior leads. I did order and personally reviewed the images of the patient's chest x-ray as described above. Her chest x-ray is unremarkable. I did order and review the patient's blood work as noted in the electronic medical record. She does not have leukocytosis or anemia. Electrolytes are unremarkable. Troponin is negative. I did discuss the test results with the patient. I did obtain records from [facility]. Apparently they admitted her for COPD and CHF exacerbation. She was then admitted to psychiatry for suicidal ideation. The patient states that when she was short of breath she could not think straight and made suicidal statements. She is not suicidal currently. She does state that the pressure in her chest is now completely resolved after nitroglycerin. I recommended hospitalization for further cardiac work-up. I did discuss case with hospitalist and director of casework. Impression & Plan Acute chest pain Discharge Plan Visit Data Chief Complaint: Shortness of Breath/Dyspnea Stated Complaint: CHF ED Provider: Jonathan Ford Discharge Problem: Acute chest pain Patient Disposition: Admitted As Inpatient Discharge Instructions Interventions: ED Discharge Assessment Last Done: 05/20/20 19:33
--- NOTE | 2020-05-20 16:11 | XRay Report ---
XR chest 1V portable HISTORY: 55 years-old Female Chest Pain . Acute atypical chest pain COMPARISON: Acute abdominal series radiographs 12/09/2019 TECHNIQUE: Portable AP view of the chest FINDINGS: Cardiomediastinal and hilar silhouettes are unchanged. The patient is slightly rotated. Chronic inter stitial coarsening. Mild right hemidiaphragmatic elevation. No pneumothorax, large pleural effusion o r overt pulmonary edema. Bones appear grossly intact. IMPRESSION: No acute process. ACT 112: Negative or not required by law. The above report was generated using voice recognition software. It may contain grammatical, syntax o r spelling errors. Electronically signed by: Kev Fountain M.D. 05/20/2020 4:10 PM
[2020-05-20 16:44] LABS: Basophils # (auto) 0.05 K/uL (0-0.2); Basophils % (auto) 0.8 %; Eosinophils # (auto) 0.13 K/uL (0-0.5); Eosinophils % (auto) 2.1 %; Hematocrit (blood only) 44.2 % (37-47); Hemoglobin 15.2 g/dL (12.0-16.0); Immature Granulocytes # (auto) 0.01 K/uL (0.00-0.02); Immature Granulocytes % (auto) 0.2 %; Lymphocytes # (auto) 1.95 K/uL (1.2-3.4); Lymphocytes % (auto) 31.9 %; Mean Corpuscular Hgb Conc 34.4 g/dL (32-36); Mean Corpuscular Volume 96.1 fL (80-100); Mean Platelet Volume 10.9 fL (7.4-10.4); Monocytes # (auto) 0.56 K/uL (0.11-0.59); Monocytes % (auto) 9.2 %; Neutrophils # (auto) 3.42 K/uL (1.4-6.5); Neutrophils % (auto) 55.8 %; Platelet Count 225 K/uL (130-400); RDW Coefficient of Variation 12.3 % (11.5-14.5); RDW Standard Deviation 43.1 fL (36.4-46.3); White Blood Count 6.12 K/uL (4.8-10.8)
[2020-05-20 17:13] LABS: Alanine Aminotransferase 51 U/L (12-78); Albumin Globulin Ratio 1.3 (0.9-2); Albumin Level 4.2 gm/dl (3.4-5.0); Alkaline Phosphatase 95 U/L (45-117); BUN Creatinine Ratio 24.7 (10-20); Bilirubin,Total 0.5 mg/dl (0.2-1); Blood Urea Nitrogen 22 mg/dl (7-18); Carbon Dioxide 29 mmol/L (21-32); Chloride 104 mmol/L (98-107); Creatinine Clr Calc Pharmacy 69.9 ml/min; Est GFR (African American) 85.7; Globulin 3.2 gm/dl (2.5-4.0); Glucose 119 mg/dl (70-99); Lipase 60 U/L (73-393); NT Pro B Type Natriuretic Pept 184 pg/ml (0-900); Sodium 140 mmol/L (136-145); Total Protein 7.4 gm/dl (6.4-8.2); Troponin I < 0.015 ng/ml (0-0.045)
[2020-05-20 17:16] LABS: Aspartate Aminotransferase 30 U/L (15-37)
[2020-05-20 18:48] LABS: Partial Thromboplastin Ratio 0.9; Partial Thromboplastin Time 26.3 Seconds (21.0-31.0); Prothrombin Time 10.8 Seconds (9.0-12.0)
[2020-05-20] MEDS ORDERED: MELATONIN 3 MG TAB PO PRN (19:40)
[2020-05-20] MEDS ORDERED: DICLOFENAC SOD 1% GEL 100 GM TUBE EXT PRN (19:40)
[2020-05-20] MEDS ORDERED: FLUTICASONE PROPIONATE NA SPR 16 GM BTL NAE PRN (19:40)
[2020-05-20] MEDS ORDERED: GABAPENTIN 300 MG CAP PO PRN (19:40)
--- NOTE | 2020-05-20 20:05 | History & Physical Report ---
Date of Service May 20, 2020 Assessment & Plan (1) Chest pain: Similar to her longstanding chest pain going on for weeks, constant and nonexertional. No need to trend troponin. Suspect GI pathology (?esophageal spasm/stricture/mass, candidal esophagitis, gastritis, GERD). Continue nitroglycerin patch since this is been useful but suspect due to relaxing esophagus (2) Esophageal dysphagia: Consult GI to consider EGD given 40 pounds weight loss and uncontrolled asthma (?chronic aspirations) likely related to this with uncontrolled reflux despite pantoprazole and famotidine. Noted prior GI consults in November and September with outpatient EGD/colonoscopy rather than inpatient recommended due to concurrent pneumonia in September and cholelithiasis in November. On this occasion I believe her symptoms are primarily GI related. (3) GERD (gastroesophageal reflux disease): Avoid alcohol. Continue pantoprazole 40 mg p.o. twice daily, famotidine 20 mg p.o. twice daily - still having significant symptoms despite being on this. Consult GI as above. We will defer Carafate pending EGD decision (4) Oropharyngeal dysphagia: Consult speech and language therapy as pills getting stuck at the back of her throat. Chronic cough ?chronically aspirating. (5) Post-nasal drip: Flonase 1 spray each nostril twice daily Start Yareli 60 mg p.o. twice daily (6) Cough: Suspect secondary to GERD versus postnasal drip. Treatment as above (7) Asthma: Breo Ellipta 1 inhalation daily. Albuterol 2 puffs as needed for wheezing. (8) Chronic respiratory failure with hypoxia: Currently on 2 L at home Aim O2 sats > 94% (9) History of ETOH abuse: Advised to stop all alcohol use as suspect this led to her recent hospitalization. (10) Restless leg syndrome: Continue ropinirole 1 mg p.o. at bedtime (11) HTN (hypertension): Stop Sudafed. Continue home medications losartan 100 mg p.o. at bedtime Continue Lasix 40 mg p.o. daily (although I suspect her recent hospitalization in [facility] was more asthma exacerbation from aspiration in setting of alcohol intoxication than CHF) (12) Abnormal TSH: Repeat TSH reflex free T4 with a.m. labs ?central hypothyroidism contributing towards constipation (13) Chronic constipation: MiraLAX x2. Continue Linzess. Monitor BMs. Should be addressed prior to discharge as high likelihood of readmission if she has no bowel movement. (14) Ganglion cyst of dorsum of right wrist: Cause of pain on back of right wrist. Discussed with patient for outpatient follow-up. (15) Sprain of anterior talofibular ligament of right ankle: Chronic repeated sprains with instability since she continues to fall over on this. Falls risk PT eval (16) Avascular necrosis of left humeral head: Noted on prior CT chest. Recommend outpatient follow-up. (17) DVT prophylaxis: SCDs pending decision on EGD tomorrow. If stay prolonged recommend chemical prophylaxis given history of PEs. Admission and Anticipated Discharge Date Admission Date: May 20, 2020 History of Present Illness Chief Complaint: Chest pain Primary Care Provider: Tyrell Mancini MD Pippa Schmitt is a 55-year-old female with complex medical history including H1N1 influenza requiring prolonged ICU care, Guillain [place] syndrome, and prior tracheostomy who presents to the ER with chest pain. She reports this chest pain is been ongoing for a number of weeks but acutely became much worse this morning. Pain is substernal. Work-up with severe chest pain this morning but since is it is been ongoing it was not until an aid came to her house and thought she did not look well and the patient agreed that she came to the ER. Pain slowly became worse throughout the day. Most severe on arrival at the ER 8/10, currently 2/10. No radiation. Not pleuritic, exertional, worse with food. Associated with shortness of breath but no nausea or diaphoresis. No palpitations, leg swelling, presyncope, syncope, claudication. She reports having a recent hospitalization at [facility] from May 08 - May 17 for CHF exacerbation. Discharge summary available which also noted asthma exacerbation which she was treated with steroids and azithromycin. No intubation or echocardiogram noted. Her BNP was low. Chest x-ray showed diffuse changes interpreted as edema. On admission while hypoxic she was apparently making statements such as " I am tired of living" which was interpr eted as suicidal thoughts therefore she was transferred to inpatient psychiatry and started on citalopram. Pippa feels she made these comments in the setting of hypoxia and alcohol intoxication. She admits to drinking alcohol for her birthday celebrations prior to that admission. She has a history of alcohol abuse. She reports not drinking alcohol for 2 months prior to that. She was also hospitalized here in November for abdominal pain, nausea, vomiting, diagnosed with symptomatic cholelithiasis which improved after surgery. She feels her current pain is different to that back in November. On admission the patient is resting comfortably. Severity 2/10 pain. After eating she mentioned the potatoes felt like they got stuck and this is been a problem with solid foods feeling like they are getting stuck in her mid-lower chest. Allergies Allergy/AdvReac Type Severity Reaction Status Date / Time house dust Allergy Intermediate Difficulty Verified 05/20/20 16:42 Breathing red dye Allergy Intermediate RED FOOD Verified 05/20/20 16:42 DYE CAUSES SEVERE ASTHMA ATTACK yellow dye Allergy Intermediate YELLOW Verified 05/20/20 16:42 FOOD DYE CAUSES SEVERE ASTHMA ATTACK diphtheria toxoid,fluid Allergy Mild Unknown Verified 05/20/20 16:42 tetanus toxoid, adsorbed Allergy Mild Unknown Verified 05/20/20 16:42 mold Allergy Unknown ASTHMA Verified 05/20/20 16:42 ATTACK Home Medications Home Medications Medication Instructions Recorded Confirmed Type Breo Ellipta 1 inh INHALATION DAILY 07/05/18 05/20/20 History albuterol sulfate 2.5 mg INHALATION QID PRN 07/05/18 05/20/20 History gabapentin 300 mg PO BID PRN 07/05/18 05/20/20 History melatonin 10 mg PO HS PRN 07/05/18 05/20/20 History polyethylene glycol 3350 17 g PO DAILY PRN 07/05/18 05/20/20 History albuterol sulfate 90 mcg/actuation See Rx Instructions .ROUTE 07/15/19 05/20/20 Rx aerosol inhaler .COMPLEX #54 gram trazodone 100 mg tablet 200 mg PO HS #180 tab 08/23/19 05/20/20 Rx multivitamin-ferrous 1 tab PO DAILY 09/21/19 05/20/20 History fumarate-folic acid 18 mg-400 mcg tablet psyllium husk 0.52 gram capsule 2.6 gm PO DAILY PRN cap 09/21/19 05/20/20 History diclofenac sodium 1 % topical gel 2 gm TOP QID #100 gm 01/06/20 05/20/20 Rx famotidine 20 mg tablet 20 mg PO BID #180 tab 01/06/20 05/20/20 Rx fluticasone propionate 50 1 sprays INTNAS DAILY PRN #47.4 ml 01/06/20 05/20/20 Rx mcg/actuation nasal spray,suspension linaclotide 290 mcg capsule 290 mcg PO DAILY #90 cap 01/06/20 05/20/20 Rx naproxen 500 mg tablet 500 mg PO BID PRN #180 tab 01/06/20 05/20/20 Rx pantoprazole 40 mg tablet,delayed 40 mg PO BID #180 tab 01/06/20 05/20/20 Rx release ropinirole 1 mg tablet 1 mg PO DAILY #90 tab 01/06/20 05/20/20 Rx ondansetron 4 mg disintegrating 4 mg PO Q8H PRN #30 tab 02/17/20 05/20/20 Rx tablet cyclobenzaprine 10 mg tablet 10 mg PO TID PRN #90 tab 02/28/20 05/20/20 Rx montelukast 10 mg tablet 10 mg PO DAILY #30 tab 03/19/20 05/20/20 Rx hydrocodone 5 mg-acetaminophen 325 See Rx Instructions .ROUTE 05/02/20 05/20/20 Rx mg tablet .COMPLEX #60 tab lorazepam 1 mg tablet 0.5 mg PO TID PRN #20 tab 05/02/20 05/20/20 Rx citalopram [Celexa] 20 mg PO DAILY 05/20/20 05/20/20 History furosemide [Lasix] 40 mg PO DAILY 05/20/20 05/20/20 History losartan 100 mg PO HS 05/20/20 05/20/20 History Past Med/Surg History Medical History (Updated 05/21/20 @ 02:02 by Daniel Garcia MD) Abnormal TSH Aggressive behavior Alcohol intoxication Anxiety Asthma Asthma with exacerbation Avascular necrosis of left humeral head 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) Bronchitis Chronic constipation Chronic respiratory failure with hypoxia Contusion of face (04/27/11) COPD (chronic obstructive pulmonary disease) Depression Foot contusion Gastroenteritis GERD (gastroesophageal reflux disease) History of ETOH abuse 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 History of pulmonary embolism HTN (hypertension) Interstitial lung disease Mood disorder Pulmonary HTN Restless leg syndrome Sepsis Symptomatic cholelithiasis Type II diabetes mellitus Surgical History (Updated 05/21/20 @ 02:02 by Daniel Garcia MD) History of laparoscopic cholecystectomy History of radiofrequency ablation procedure for cardiac arrhythmia History of tracheostomy Status post craniectomy Status post insertion of percutaneous endoscopic gastrostomy (PEG) tube Family History Other No significant family history Social History Smoking Status: Never smoker Second Hand Exposure: No; Hx Alcohol Use: Yes Alcohol type: wine Hx Substance Use: No Preferred Language: [place] Communication Ability: Effective Visual Impairment: No Limitations Analytics Leader Required: No Beliefs That Will Affect Care: None marital status: Single Current Living Situation: Alone Feels Safe at Home: Yes Safety Concerns: Feels Safe At This Time Review of Systems Respiratory: Chronic productive cough over the last 2 to 3 months, white phlegm. Gastrointestinal: + abdominal pain, + belching, + heartburn, + nausea, + vomiting, + pain with swallowing, + dysphagia, + cramping and + constipation; no change in stools Odynophagia with solid food and lower chest. Occasional pills get stuck in the back of her throat. Reports using a fat burner pill she buys from [employer] but does not know the name on admission Musculoskeletal: Pain and swelling over the right anterior talofibular ligament - ongoing for weeks Pain and lump over dorsal right wrist - ongoing for weeks Physical Exam Constitutional: well developed, well nourished and + obese Eyes: + anicteric sclerae; normal pupil size ENMT: Ears: no external ear abnormality Nose: no external nose abnormality Neck: trachea midline, no thyromegaly Respiratory: normal respiratory effort, + cough (Productive) and able to speak in complete sentences; no respiratory distress, no labored breathing and does not use accessory muscles Auscultation: + rhonchi (Mild bilateral); no diminished lung sounds and no wheezes Cardiovascular: RRR, no murmur, no edema Vessels: no JVD Extremities: normal capillary refill; no calf tenderness Gastrointestinal (Abdomen): Inspection/Auscultation: normal bowel sounds; abdomen not distended Percussion/Palpation: + abdomen tender (Epigastric, no rebound) and abdomen soft; no guarding and abdomen not rigid Musculoskeletal: Swelling and pain in the right anterior talofibular ligament. Ganglion cyst present over the dorsal aspect of right wrist. Skin: no rashes, warm and dry Neurologic: moves all extremities and awake; no focal motor deficits and not confused Speech / Cognition: normal speech Motor/Sensory: no tremor and no pronator drift Psychiatric: A+Ox3, euthymic affect Genitourinary: no CVA tenderness Lymphatic: no cervical or axillary lymphadenopathy Results & Data Results & Data ([facility]) Vital Signs (Past 12 Hours) Vital Signs Temp Pulse Resp BP Pulse Ox 05/20/20 17:00 75 13 124/73 05/20/20 16:30 72 15 119/83 05/20/20 16:27 100 05/20/20 16:20 85 18 126/83 99 05/20/20 15:13 36.7 C 103 H 19 159/89 H 92 05/20/20 15:02 100 Diagnostic Findings XR chest 1V portable IMPRESSION: No acute process. ECG Indication: chest pain Rate (beats per minute): 98 Rhythm: normal sinus Findings: no acute ischemic change Comparison ECG Date: from (May 20, 2020) Change: no significant change Code Status & VTE Plan Code Status Full VTE Prophylaxis Plan VTE Prophylaxis will be ordered: Yes PG Care Time/CCT Total # of Minutes Spent Total Time Spent: 115 Total Time Spent with Patient: Total time spent is greater than 50% in coordination of care (as documented) at patient's floor/unit and/or counseling patient: Coding Level of Care Code 93782 OBS Care - Level 3 Diagnoses Chest pain R07.9 Esophageal dysphagia R13.10 GERD (gastroesophageal reflux disease) K21.9 Oropharyngeal dysphagia R13.12 Post-nasal drip R09.82 Cough R05 Asthma J45.909 Chronic respiratory failure with hypoxia J96.11 History of ETOH abuse F10.11 Restless leg syndrome G25.81 HTN (hypertension) I10 Abnormal TSH R79.89 Chronic constipation K59.09 Ganglion cyst of dorsum of right wrist M67.431 Sprain of anterior talofibular ligament of right ankle S93.491A Avascular necrosis of left humeral head M87.022 DVT prophylaxis Z29.9
[2020-05-20] MEDS ORDERED: ALBUTEROL 0.083% NEBU SOLN 3 ML VIAL INH PRN (20:14)
[2020-05-20] MEDS: PANTOprazole 40 MG TAB PO SCH (21:04)
[2020-05-20] MEDS: MONTELUKAST SODIUM 10 MG TABLET PO SCH (21:04)
[2020-05-20] MEDS: LOSARTAN POTASSIUM 50 MG TAB PO SCH (21:04)
[2020-05-20] MEDS: ROPINIROLE HCL 1 MG TABLET PO SCH (21:04)
[2020-05-20] MEDS: FAMOTIDINE 20 MG TAB PO SCH (21:05)
[2020-05-20] MEDS: GABAPENTIN 300 MG CAP PO SCH (21:06)
[2020-05-20] MEDS ORDERED: POLYETHYLENE (MIRALAX) 17 GM PACK PO ONE (21:37)
[2020-05-20] MEDS: TRAZODONE HCL 100 MG TAB PO SCH (21:59)
[2020-05-20] MEDS: CYCLOBENZAPRINE HCL 10 MG TAB PO PRN (21:59)
[2020-05-20] MEDS: HYDROCODONE/ACETAMOPHEN 5/325MG TAB PO PRN (21:59)
[2020-05-20] MEDS: NITROGLYCERIN 2% OINTMENT 30GM TUBE EXT SCH (21:59)
[2020-05-21] MEDS ORDERED: LINZESS: ORDER AWAITING ACTION SCH
[2020-05-21] MEDS: LORazepam 0.5 MG TAB PO PRN ×2 (00:05→20:33)
[2020-05-21] MEDS: NITROGLYCERIN 2% OINTMENT 30GM TUBE EXT SCH ×3 (05:37→17:48)
[2020-05-21 06:34] LABS: Basophils # (auto) 0.03 K/uL (0-0.2); Basophils % (auto) 0.6 %; Eosinophils # (auto) 0.21 K/uL (0-0.5); Hematocrit (blood only) 41.4 % (37-47); Hemoglobin 13.3 g/dL (12.0-16.0); Immature Granulocytes # (auto) 0.01 K/uL (0.00-0.02); Immature Granulocytes % (auto) 0.2 %; Lymphocytes # (auto) 2.43 K/uL (1.2-3.4); Lymphocytes % (auto) 46.7 %; Mean Corpuscular Hemoglobin 31.1 pg (25-34); Mean Corpuscular Hgb Conc 32.1 g/dL (32-36); Mean Corpuscular Volume 96.7 fL (80-100); Mean Platelet Volume 10.9 fL (7.4-10.4); Monocytes % (auto) 9.6 %; Neutrophils # (auto) 2.02 K/uL (1.4-6.5); Neutrophils % (auto) 38.9 %; Platelet Count 198 K/uL (130-400); RDW Coefficient of Variation 12.5 % (11.5-14.5); RDW Standard Deviation 43.7 fL (36.4-46.3); Red Blood Count 4.28 M/uL (4.2-5.4)
--- NOTE | 2020-05-21 07:03 | Electrocardiogram Report ---
Test Reason : Blood Pressure : / mmHG Vent. Rate : 098 BPM Atrial Rate : 098 BPM P-R Int : 154 ms QRS Dur : 082 ms QT Int : 376 ms P-R-T Axes : 034 -27 008 degrees QTc Int : 480 ms Normal sinus rhythm with sinus arrhythmia Low voltage QRS Inferior infarct (cited on or before 06-MAY-2014) Nonspecific T wave abnormality Abnormal ECG When compared with ECG of 09-DEC-2019 03:47, Minimal criteria for Anteroseptal infarct are no longer Present Confirmed by Hemant Khoury ([id number]) on 05/21/2020 7:03:19 AM Referred By: REFERRED SELF Confirmed By:Hemant Khoury
[2020-05-21 07:06] LABS: Albumin Level 3.1 gm/dl (3.4-5.0); Calcium 8.6 mg/dl (8.5-10.1); Creatinine Clr Calc Pharmacy 74.7 ml/min; Est GFR (Non-African American) 79.4; Potassium 3.7 mmol/L (3.5-5.1)
[2020-05-21 07:17] LABS: Bilirubin,Total 0.6 mg/dl (0.2-1); Globulin 3.1 gm/dl (2.5-4.0); Thyroid Stimulating Hormone 0.635 uIu/ml (0.300-4.500); Total Protein 6.2 gm/dl (6.4-8.2)
--- NOTE | 2020-05-21 07:19 | Electrocardiogram Report ---
Test Reason : Blood Pressure : / mmHG Vent. Rate : 066 BPM Atrial Rate : 066 BPM P-R Int : 152 ms QRS Dur : 082 ms QT Int : 432 ms P-R-T Axes : 018 -17 013 degrees QTc Int : 452 ms Normal sinus rhythm Low voltage QRS Nonspecific T wave abnormality Inferior infarct Nonspecific T wave abnormality When compared with ECG of 20-MAY-2020 15:22, Vent. rate has decreased BY 32 BPM Confirmed by Hemant Khoury ([id number]) on 05/21/2020 7:19:11 AM Referred By: REFERRED SELF Confirmed By:Hemant Khoury
[2020-05-21] MEDS: CEROVITE ADV FORMULA TAB PO SCH (08:46)
[2020-05-21] MEDS: FEXOFENADINE 60 MG TAB PO SCH ×3 (08:46→20:18)
[2020-05-21] MEDS: FLUTICASONE/VILANTEROL 100/25MCG 14 PUFFS/INHALER INH SCH (08:46)
[2020-05-21] MEDS: CITALOPRAM 20 MG TAB PO SCH (08:47)
[2020-05-21] MEDS: FUROSEMIDE 40 MG TAB PO SCH (08:47)
[2020-05-21] MEDS: PANTOprazole 40 MG TAB PO SCH (08:47)
[2020-05-21] MEDS: FAMOTIDINE 20 MG TAB PO SCH ×2 (08:47→20:19)
[2020-05-21] MEDS: GABAPENTIN 300 MG CAP PO SCH ×2 (08:48→20:18)
[2020-05-21] MEDS: FLUTICASONE PROPIONATE NA SPR 16 GM BTL NAE SCH ×3 (08:48→20:36)
[2020-05-21] MEDS: LINACLOTIDE PO SCH (08:49)
[2020-05-21] MEDS: HYDROCODONE/ACETAMOPHEN 5/325MG TAB PO PRN ×2 (08:57→20:32)
[2020-05-21] MEDS: CYCLOBENZAPRINE HCL 10 MG TAB PO PRN ×2 (08:58→20:33)
[2020-05-21 08:59] LABS: Estimated Average Glucose 137 mg/dl; Hemoglobin A1C 6.4 % (4.5-5.6)
[2020-05-21] MEDS ORDERED: MONTELUKAST SODIUM 10 MG TABLET PO SCH (09:00)
[2020-05-21] MEDS ORDERED: ROPINIROLE HCL 1 MG TABLET PO SCH (09:00)
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
--- NOTE | 2020-05-21 09:58 | Anesthesiology Consultation ---
Date of Service May 21, 2020 Assessment & Plan (1) Encounter for pre-operative examination: History Height/Weight Height: 5 ft 2 in Weight: 79.3 kg Allergies Allergy/AdvReac Type Severity Reaction Status Date / Time house dust Allergy Intermediate Difficulty Verified 05/20/20 16:42 Breathing red dye Allergy Intermediate RED FOOD Verified 05/20/20 16:42 DYE CAUSES SEVERE ASTHMA ATTACK yellow dye Allergy Intermediate YELLOW Verified 05/20/20 16:42 FOOD DYE CAUSES SEVERE ASTHMA ATTACK diphtheria toxoid,fluid Allergy Mild Unknown Verified 05/20/20 16:42 tetanus toxoid, adsorbed Allergy Mild Unknown Verified 05/20/20 16:42 mold Allergy Unknown ASTHMA Verified 05/20/20 16:42 ATTACK Medications Home Medications Medication Instructions Recorded Confirmed Last Taken Breo Ellipta 1 inh INHALATION DAILY 07/05/18 05/20/20 05/19/20 albuterol sulfate 2.5 mg INHALATION QID PRN 07/05/18 05/20/20 Unknown gabapentin 300 mg PO BID PRN 07/05/18 05/20/20 Unknown melatonin 10 mg PO HS PRN 07/05/18 05/20/20 Unknown polyethylene glycol 3350 17 g PO DAILY PRN 07/05/18 05/20/20 Unknown albuterol sulfate 90 mcg/actuation See Rx Instructions .ROUTE 07/15/19 05/20/20 Unknown aerosol inhaler .COMPLEX #54 gram trazodone 100 mg tablet 200 mg PO HS #180 tab 08/23/19 05/20/20 05/19/20 multivitamin-ferrous 1 tab PO DAILY 09/21/19 05/20/20 05/20/20 fumarate-folic acid 18 mg-400 mcg tablet psyllium husk 0.52 gram capsule 2.6 gm PO DAILY PRN cap 09/21/19 05/20/20 Unknown diclofenac sodium 1 % topical gel 2 gm TOP QID #100 gm 01/06/20 05/20/20 05/19/20 famotidine 20 mg tablet 20 mg PO BID #180 tab 01/06/20 05/20/20 05/19/20 fluticasone propionate 50 1 sprays INTNAS DAILY PRN #47.4 ml 01/06/20 05/20/20 Unknown mcg/actuation nasal spray,suspension linaclotide 290 mcg capsule 290 mcg PO DAILY #90 cap 0405/20/20 05/19/20 naproxen 500 mg tablet 500 mg PO BID PRN #180 tab 01/06/20 05/20/20 Unknown pantoprazole 40 mg tablet,delayed 40 mg PO BID #180 tab 01/06/20 05/20/20 0901/31 release ropinirole 1 mg tablet 1 mg PO DAILY #90 tab 01/06/20 05/20/20 05/19/20 ondansetron 4 mg disintegrating 4 mg PO Q8H PRN #30 tab 02/17/20 05/20/20 Unknown tablet cyclobenzaprine 10 mg tablet 10 mg PO TID PRN #90 tab 02/28/20 05/20/20 05/20/20 08:00 montelukast 10 mg tablet 10 mg PO DAILY #30 tab 03/19/20 05/20/20 05/19/20 hydrocodone 5 mg-acetaminophen 325 See Rx Instructions .ROUTE 05/02/20 05/20/20 05/20/20 08:00 mg tablet .COMPLEX #60 tab lorazepam 1 mg tablet 0.5 mg PO TID PRN #20 tab 05/02/20 05/20/20 Unknown citalopram [Celexa] 20 mg PO DAILY 05/20/20 05/20/20 05/19/20 furosemide [Lasix] 40 mg PO DAILY 05/20/20 05/20/20 05/19/20 losartan 100 mg PO HS 05/20/20 05/20/20 05/20/20 08:00 Active Medications Generic Name Dose Route Start Last Admin Trade Name Freq PRN Reason Stop Dose Admin Hydrocodone Bitart/Acetaminophen 1 tab 05/20/20 20:12 05/21/20 08:57 Hydrocodone/Acetamophen 5/325mg Tab PO 06/03/20 20:11 1 tab Q8H PRN Administration Pain Albuterol 2.5 mg 05/20/20 20:14 05/20/20 22:18 Albuterol 0.083% Nebu Soln 3 Ml Vial INH 06/19/20 20:13 2.5 mg QID PRN Administration Shortness Of Breath Citalopram Hydrobromide 20 mg 05/21/20 09:00 05/21/20 08:47 Citalopram 20 Mg Tab PO 06/20/20 08:59 20 mg DAILY EN Administration Cyclobenzaprine HCl 10 mg 05/20/20 20:16 05/21/20 08:58 Cyclobenzaprine Hcl 10 Mg Tab PO 06/19/20 20:29 10 mg Q8H PRN Administration muscle spasm Famotidine 20 mg 05/20/20 21:00 05/21/20 08:47 Famotidine 20 Mg Tab PO 06/19/20 20:59 20 mg BID EN Administration Fexofenadine HCl 60 mg 05/21/20 09:00 05/21/20 09:04 Fexofenadine 60 Mg Tab PO 06/20/20 08:59 Not Given BID EN Fluticasone Propionate 1 sprays 05/21/20 09:00 05/21/20 08:48 Fluticasone Propionate Na Spr 16 Gm Btl FERMÍN 06/20/20 08:59 Not Given BID EN Fluticasone/Vilanterol 1 puffs 05/21/20 09:00 05/21/20 08:46 Fluticasone/Vilanterol 100/25mcg 14 Puffs/Inhaler INH 06/20/20 08:59 1 puffs DAILY EN Administration Furosemide 40 mg 05/21/20 09:00 05/21/20 08:47 Furosemide 40 Mg Tab PO 06/20/20 08:59 40 mg DAILY EN Administration Gabapentin 300 mg 05/20/20 21:00 05/21/20 08:48 Gabapentin 300 Mg Cap PO 06/19/20 20:59 300 mg BID EN Administration Linaclotide 1 ea 05/21/20 09:00 05/21/20 08:49 Linaclotide PO 06/20/20 08:59 1 ea DAILY EN Administration Lorazepam 0.5 mg 05/20/20 20:13 05/21/20 00:05 Lorazepam 0.5 Mg Tab PO 06/19/20 20:12 0.5 mg Q8H PRN Administration Anxiety Losartan Potassium 100 mg 05/20/20 21:00 05/20/20 21:04 Losartan Potassium 50 Mg Tab PO 06/19/20 20:59 100 mg HS EN Administration Melatonin 9 mg 05/20/20 19:40 05/20/20 21:59 Melatonin 3 Mg Tab PO 06/19/20 19:39 9 mg HS PRN Administration Sleep Montelukast Sodium 10 mg 05/20/20 21:00 05/20/20 21:04 Montelukast Sodium 10 Mg Tablet PO 06/19/20 20:59 10 mg HS EN Administration Multivitamins/Minerals 1 tab 05/21/20 09:00 05/21/20 08:46 Cerovite Adv Formula Tab PO 06/20/20 08:59 1 tab DAILY EN Administration Nitroglycerin 0.5 inch 05/20/20 22:00 05/21/20 05:37 Nitroglycerin 2% Ointment 30gm Tube EXT 06/19/20 21:59 0.5 inch Q6 EN Administration Pantoprazole Sodium 40 mg 05/20/20 21:00 05/21/20 08:47 Pantoprazole 40 Mg Tab PO 06/19/20 20:59 40 mg BID EN Administration Ropinirole HCl 1 mg 05/20/20 21:00 05/20/20 21:04 Ropinirole Hcl 1 Mg Tablet PO 06/19/20 20:59 1 mg HS EN Administration Trazodone HCl 200 mg 05/20/20 21:35 05/20/20 21:59 Trazodone Hcl 100 Mg Tab PO 06/19/20 21:34 200 mg HS EN Administration Past Medical History Medical History Abnormal TSH Aggressive behavior Alcohol intoxication Anxiety Asthma Asthma with exacerbation Avascular necrosis of left humeral head 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) Bronchitis Chronic constipation Chronic respiratory failure with hypoxia Contusion of face (04/27/11) COPD (chronic obstructive pulmonary disease) Depression Foot contusion Gastroenteritis GERD (gastroesophageal reflux disease) History of ETOH abuse History of Guillain-[place] syndrome History of pulmonary embolism HTN (hypertension) Interstitial lung disease Mood disorder Pulmonary HTN Restless leg syndrome Sepsis Symptomatic cholelithiasis Type II diabetes mellitus Past Family History Family History Other No significant family history Past Surgical History Surgical History History of laparoscopic cholecystectomy History of radiofrequency ablation procedure for cardiac arrhythmia History of tracheostomy Status post craniectomy Status post insertion of percutaneous endoscopic gastrostomy (PEG) tube Social History Smoking Status: Never smoker Hx Alcohol Use: Yes Alcohol type: wine alcohol intake frequency: a few times a month Hx Substance Use: No Physical Exam Vital Signs Last Vital Signs Temp 36.8 C 05/21/20 07:16 Pulse 82 05/21/20 07:16 Resp 18 05/21/20 07:16 BP 112/72 05/21/20 07:16 Pulse Ox 96 05/21/20 07:16 Testing Laboratory Results 05/21/20 06:23 05/21/20 06:23 PT 10.8 Seconds (9.0-12.0) 05/20/20 18:26 INR 1.0 (0.9-1.1) 05/20/20 18:26 APTT 26.3 Seconds (21.0-31.0) 05/20/20 18:26 Hemoglobin A1c 6.4 % (4.5-5.6) H 05/21/20 06:23 Electrocardiogram Date: 05/21/20 Normal sinus rhythm Low voltage QRS Nonspecific T wave abnormality Inferior infarct Nonspecific T wave abnormality When compared with ECG of 20-MAY-2020 15:22, Vent. rate has decreased BY 32 BPM Confirmed by Hemant Khoury ([id number]) on 05/21/2020 7:19:11 AM Chest X-Ray Date: 05/20/20 IPRESSION: No acute process Echocardiogram Date: 10/11/19 EF: >70% LV Function: normal
[2020-05-21 10:21] LABS: Pregnancy Test, Urine Negative (Negative)
--- NOTE | 2020-05-21 11:40 | Anesthesiology Consultation ---
Date of Service May 21, 2020 Covid 19 negative today. Assessment & Plan (1) Encounter for pre-operative examination: Chart Review Chart Review: Acceptable Risk for Surgery and Patient NOT seen in Pre Admission Testing Consults Requested none History Surgery Operation Date: 05/21/20 12:00 Proposed Procedures p Esophagogastroduodenoscopy - Brooks Holt MD Height/Weight Height: 5 ft 2 in Weight: 79.3 kg Allergies Allergy/AdvReac Type Severity Reaction Status Date / Time house dust Allergy Intermediate Difficulty Verified 05/20/20 16:42 Breathing red dye Allergy Intermediate RED FOOD Verified 05/20/20 16:42 DYE CAUSES SEVERE ASTHMA ATTACK yellow dye Allergy Intermediate YELLOW Verified 05/20/20 16:42 FOOD DYE CAUSES SEVERE ASTHMA ATTACK diphtheria toxoid,fluid Allergy Mild Unknown Verified 05/20/20 16:42 tetanus toxoid, adsorbed Allergy Mild Unknown Verified 05/20/20 16:42 mold Allergy Unknown ASTHMA Verified 05/20/20 16:42 ATTACK Medications Home Medications Medication Instructions Recorded Confirmed Last Taken Breo Ellipta 1 inh INHALATION DAILY 07/05/18 05/20/20 05/19/20 albuterol sulfate 2.5 mg INHALATION QID PRN 07/05/18 05/20/20 Unknown gabapentin 300 mg PO BID PRN 07/05/18 05/20/20 Unknown melatonin 10 mg PO HS PRN 07/05/18 05/20/20 Unknown polyethylene glycol 3350 17 g PO DAILY PRN 07/05/18 05/20/20 Unknown albuterol sulfate 90 mcg/actuation See Rx Instructions .ROUTE 07/15/19 05/20/20 Unknown aerosol inhaler .COMPLEX #54 gram trazodone 100 mg tablet 200 mg PO HS #180 tab 08/23/19 05/20/20 05/19/20 multivitamin-ferrous 1 tab PO DAILY 09/21/19 05/20/20 05/20/20 fumarate-folic acid 18 mg-400 mcg tablet psyllium husk 0.52 gram capsule 2.6 gm PO DAILY PRN cap 09/21/19 05/20/20 Unknown diclofenac sodium 1 % topical gel 2 gm TOP QID #100 gm 01/06/20 05/20/20 05/19/20 famotidine 20 mg tablet 20 mg PO BID #180 tab 01/06/20 05/20/20 05/19/20 fluticasone propionate 50 1 sprays INTNAS DAILY PRN #47.4 ml 01/06/20 05/20/20 Unknown mcg/actuation nasal spray,suspension linaclotide 290 mcg capsule 290 mcg PO DAILY #90 cap 01/06/20 05/20/20 05/19/20 naproxen 500 mg tablet 500 mg PO BID PRN #180 tab 01/06/20 05/20/20 Unknown pantoprazole 40 mg tablet,delayed 40 mg PO BID #180 tab 01/06/20 05/20/20 05/19/20 release ropinirole 1 mg tablet 1 mg PO DAILY #90 tab 01/06/20 05/20/20 05/19/20 ondansetron 4 mg disintegrating 4 mg PO Q8H PRN #30 tab 02/17/20 05/20/20 Unknown tablet cyclobenzaprine 10 mg tablet 10 mg PO TID PRN #90 tab 02/28/20 05/20/20 05/20/20 08:00 montelukast 10 mg tablet 10 mg PO DAILY #30 tab 03/19/20 05/20/20 05/19/20 hydrocodone 5 mg-acetaminophen 325 See Rx Instructions .ROUTE 05/02/20 05/20/20 05/20/20 08:00 mg tablet .COMPLEX #60 tab lorazepam 1 mg tablet 0.5 mg PO TID PRN #20 tab 05/02/20 05/20/20 Unknown citalopram [Celexa] 20 mg PO DAILY 05/20/20 05/20/20 05/19/20 furosemide [Lasix] 40 mg PO DAILY 05/20/20 05/20/20 05/19/20 losartan 100 mg PO HS 05/20/20 05/20/20 05/20/20 08:00 Active Medications Generic Name Dose Route Start Last Admin Trade Name Freq PRN Reason Stop Dose Admin Hydrocodone Bitart/Acetaminophen 1 tab 05/20/20 20:12 05/21/20 08:57 Hydrocodone/Acetamophen 5/325mg Tab PO 06/03/20 20:11 1 tab Q8H PRN Administration Pain Albuterol 2.5 mg 05/20/20 20:14 05/20/20 22:18 Albuterol 0.083% Nebu Soln 3 Ml Vial INH 06/19/20 20:13 2.5 mg QID PRN Administration Shortness Of Breath Citalopram Hydrobromide 20 mg 05/21/20 09:00 05/21/20 08:47 Citalopram 20 Mg Tab PO 06/20/20 08:59 20 mg DAILY EN Administration Cyclobenzaprine HCl 10 mg 05/20/20 20:16 05/21/20 08:58 Cyclobenzaprine Hcl 10 Mg Tab PO 06/19/20 20:29 10 mg Q8H PRN Administration muscle spasm Famotidine 20 mg 05/20/20 21:00 05/21/20 08:47 Famotidine 20 Mg Tab PO 06/19/20 20:59 20 mg BID EN Administration Fexofenadine HCl 60 mg 05/21/20 09:00 05/21/20 09:04 Fexofenadine 60 Mg Tab PO 06/20/20 08:59 Not Given BID EN Fluticasone Propionate 1 sprays 05/21/20 09:00 05/21/20 08:48 Fluticasone Propionate Na Spr 16 Gm Btl FERMÍN 06/20/20 08:59 Not Given BID EN Fluticasone/Vilanterol 1 puffs 05/21/20 09:00 05/21/20 08:46 Fluticasone/Vilanterol 100/25mcg 14 Puffs/Inhaler INH 06/20/20 08:59 1 puffs DAILY EN Administration Furosemide 40 mg 05/21/20 09:00 05/21/20 08:47 Furosemide 40 Mg Tab PO 06/20/20 08:59 40 mg DAILY EN Administration Gabapentin 300 mg 05/20/20 21:00 05/21/20 08:48 Gabapentin 300 Mg Cap PO 06/19/20 20:59 300 mg BID EN Administration Linaclotide 1 ea 05/21/20 09:00 05/21/20 08:49 Linaclotide PO 06/20/20 08:59 1 ea DAILY EN Administration Lorazepam 0.5 mg 05/20/20 20:13 05/21/20 00:05 Lorazepam 0.5 Mg Tab PO 06/19/20 20:12 0.5 mg Q8H PRN Administration Anxiety Losartan Potassium 100 mg 05/20/20 21:00 05/20/20 21:04 Losartan Potassium 50 Mg Tab PO 06/19/20 20:59 100 mg HS EN Administration Melatonin 9 mg 05/20/20 19:40 05/20/20 21:59 Melatonin 3 Mg Tab PO 06/19/20 19:39 9 mg HS PRN Administration Sleep Montelukast Sodium 10 mg 05/20/20 21:00 05/20/20 21:04 Montelukast Sodium 10 Mg Tablet PO 06/19/20 20:59 10 mg HS EN Administration Multivitamins/Minerals 1 tab 05/21/20 09:00 05/21/20 08:46 Cerovite Adv Formula Tab PO 06/20/20 08:59 1 tab DAILY EN Administration Nitroglycerin 0.5 inch 05/20/20 22:00 05/21/20 05:37 Nitroglycerin 2% Ointment 30gm Tube EXT 06/19/20 21:59 0.5 inch Q6 EN Administration Pantoprazole Sodium 40 mg 05/20/20 21:00 05/21/20 08:47 Pantoprazole 40 Mg Tab PO 06/19/20 20:59 40 mg BID EN Administration Ropinirole HCl 1 mg 05/20/20 21:00 05/20/20 21:04 Ropinirole Hcl 1 Mg Tablet PO 06/19/20 20:59 1 mg HS EN Administration Trazodone HCl 200 mg 05/20/20 21:35 05/20/20 21:59 Trazodone Hcl 100 Mg Tab PO 06/19/20 21:34 200 mg HS EN Administration Past Medical History Medical History Abnormal TSH Aggressive behavior Alcohol intoxication Anxiety Asthma Asthma with exacerbation Avascular necrosis of left humeral head 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) Bronchitis Chronic constipation Chronic respiratory failure with hypoxia Contusion of face (04/27/11) COPD (chronic obstructive pulmonary disease) Depression Foot contusion Gastroenteritis GERD (gastroesophageal reflux disease) History of ETOH abuse History of Guillain-[place] syndrome History of pulmonary embolism HTN (hypertension) Interstitial lung disease Mood disorder Pulmonary HTN Restless leg syndrome Sepsis Symptomatic cholelithiasis Type II diabetes mellitus Past Family History Family History Other No significant family history Past Surgical History Surgical History History of laparoscopic cholecystectomy History of radiofrequency ablation procedure for cardiac arrhythmia History of tracheostomy Status post craniectomy Status post insertion of percutaneous endoscopic gastrostomy (PEG) tube Social History Smoking Status: Never smoker Hx Alcohol Use: Yes Alcohol type: wine alcohol intake frequency: a few times a month Hx Substance Use: No Physical Exam Vital Signs Last Vital Signs Temp 37.0 C 05/21/20 11:23 Pulse 87 05/21/20 11:23 Resp 18 05/21/20 11:23 BP 138/91 05/21/20 11:23 Pulse Ox 96 05/21/20 11:23 Testing Laboratory Results 05/21/20 06:23 05/21/20 06:23 PT 10.8 Seconds (9.0-12.0) 05/20/20 18:26 INR 1.0 (0.9-1.1) 05/20/20 18:26 APTT 26.3 Seconds (21.0-31.0) 05/20/20 18:26 Hemoglobin A1c 6.4 % (4.5-5.6) H 05/21/20 06:23 Urine Test Negative (Negative) 05/21/20 10:11 05/21/20 10:11 Urine Test Negative Electrocardiogram Date: 05/21/20 Normal sinus rhythm Low voltage QRS Nonspecific T wave abnormality Inferior infarct Nonspecific T wave abnormality When compared with ECG of 20-MAY-2020 15:22, Vent. rate has decreased BY 32 BPM Confirmed by Hemant Khoury ([id number]) on 05/21/2020 7:19:11 AM Chest X-Ray Date: 05/20/20 IPRESSION: No acute process Echocardiogram Date: 10/11/19 EF: >70% LV Function: normal
[2020-05-21] MEDS ORDERED: LABETALOL HCL IV 5 MG/ML 20ML IV PRN (11:41)
[2020-05-21] MEDS ORDERED: ePHEDrine sulfate 50 MG/ML AMP IV PRN (11:41)
[2020-05-21] MEDS ORDERED: PHENYLEPHRINE 100MCG/ML 5ML SYR IV PRN (11:41)
[2020-05-21] MEDS ORDERED: ATROPINE SULFATE 0.1 MG/ML 10ML SYR IV PRN (11:41)
[2020-05-21] MEDS ORDERED: ONDANSETRON INJ 2 MG/ML 2 ML VIAL IV PRN (11:41)
[2020-05-21] MEDS ORDERED: fentaNYL citrate 100 MCG/2 ML VIAL IV PRN (11:41)
[2020-05-21] MEDS ORDERED: SODIUM CHLORIDE 0.65% NA SOLN 45 ML (OCEAN) PRN (11:52)
--- NOTE | 2020-05-21 12:14 | Communication Note ---
Date of Service: May 21, 2020 received psych consult routine order at 11:48 am. Per liaison, consult discussed with ordering clinician. She is headed for EGD momentarily and will not be appropriate to interview for some time. Consult nurse to attempt preliminary history this pm and likely review with consult clinicians Dr. Espinosa or rBenda Campbell PA-C tomorrow.
[2020-05-21] MEDS ORDERED: NSS + 20MEQ KCL 20 MEQ/1,000 ML BAG IV SCH (12:15)
[2020-05-21] MEDS ORDERED: ALBUT/IPRATROP 3MG/0.5MG NEB 3 ML VIAL ONE (12:26)
[2020-05-21] MEDS ORDERED: LIDOCAINE HCL 2% 2 ML VIAL/AMP(20MG/ML) INFIL ONE (13:00)
[2020-05-21] MEDS ORDERED: PROPOFOL IV EMULSION 10 MG/ML 20 ML VIAL IV ONE (13:00)
--- NOTE | 2020-05-21 13:12 | GI REPORT ---
Patient Name: Pippa Schmitt Procedure Date: 05/21/2020 12:48 PM Date of : 1965 Admit Type: Inpatient Age: 55 Gender: Female Attending MD: Brooks Holt MD Procedure: Upper GI endoscopy Providers: Brooks Holt MD Referring MD: Jonathan Salazar Indications: Dysphagia Medicines: Monitored Anesthesia Care Complications: No immediate complications. Estimated blood loss: None. Estimated Blood Loss: Estimated blood loss: none. Procedure: Pre-Anesthesia Assessment: - Prior Anticoagulants: The patient has taken no previous anticoagulant or antiplatelet agents. - ASA Grade Assessment: II - A patient with mild systemic disease. After obtaining informed consent, the endoscope was passed under direct vision. Throughout the procedure, the patient's blood pressure, pulse, and oxygen saturations were monitored continuously. The Endoscope was introduced through the mouth, and advanced to the second part of duodenum. The upper GI endoscopy was accomplished without difficulty. The patient tolerated the procedure well. Findings: A small hiatal hernia was present. Biopsies were obtained from the proximal and distal esophagus with cold forceps for histology of suspected eosinophilic esophagitis. Cells for cytology were obtained by brushing. Estimated blood loss: none. Diffuse moderate inflammation characterized by erythema was found in the gastric antrum. Biopsies were taken with a cold forceps for Helicobacter pylori testing. Estimated blood loss: none. The duodenal bulb and second portion of the duodenum were normal. A medium amount of food (residue) was found in the gastric body and fundus Impression: - Small hiatal hernia. Biopsied. Cells for cytology obtained. - Gastritis. Biopsied. - Normal duodenal bulb and second portion of the duodenum. - A medium amount of food (residue) in the stomach. Recommendation: - [facility]. - Resume previous diet today. - Await pathology results. -start PPI protonix 40 mg IV daily -consider gastric emptying study as an outpatient Brooks Holt MD 05/21/2020 1:12:14 PM This report has been signed electronically. Note Initiated On: 05/21/2020 12:48 PM Number of Addenda: 0 I attest to the content of the Intraoperative Record and orders documented therein, exceptions below {[id number]}
[2020-05-21] MEDS ORDERED: ONDANSETRON INJ 2 MG/ML 2 ML VIAL ONE (13:21)
--- NOTE | 2020-05-21 13:21 | Procedure Note ---
Procedure Note Date of Service May 21, 2020 GI brief procedure note EGD findings: small hiatal hernia, esophagus bx'd for EOE, brushed for libra. gastritis and food debris in stomach, biopsied for h. pylori. Recs: diet as tolerated protonix 40 mg IV daily f/u path results consider gastric emptying study as an outpatient Brooks Holt MD Gastroenterology Coding
--- NOTE | 2020-05-21 13:50 | Anesthesiology Progress Note ---
Date of Service May 21, 2020 Anesthesia Post Procedure Vital Signs Vital Signs: Temp Pulse Pulse Resp BP BP BP 05/21/20 13:45 36.4 C L 99 H 17 114/81 05/21/20 13:35 99 H 19 112/69 05/21/20 13:25 103 H 20 130/76 05/21/20 13:15 120 H 22 129/80 05/21/20 13:09 37.0 C 112 H 18 143/94 H 05/21/20 11:23 37.0 C 87 18 138/91 05/21/20 07:16 36.8 C 82 18 112/72 05/21/20 07:00 68 05/21/20 03:14 36.8 C 70 18 114/77 05/21/20 01:38 36.6 C 70 18 144/79 H 05/20/20 23:27 84 05/20/20 22:57 36.7 C 76 18 128/79 05/20/20 22:19 81 16 05/20/20 22:00 139/88 05/20/20 20:00 36.7 C 16 145/94 H 05/20/20 17:00 75 13 124/73 05/20/20 16:30 72 15 119/83 05/20/20 16:27 05/20/20 16:20 85 18 126/83 05/20/20 15:13 36.7 C 103 H 19 159/89 H 05/20/20 15:02 Pulse Ox 05/21/20 13:45 95 05/21/20 13:35 93 05/21/20 13:25 94 05/21/20 13:15 90 05/21/20 13:09 94 05/21/20 11:23 96 05/21/20 07:16 96 05/21/20 07:00 05/21/20 03:14 97 05/21/20 01:38 96 05/20/20 23:27 05/20/20 22:57 97 05/20/20 22:19 98 05/20/20 22:00 05/20/20 20:00 94 05/20/20 17:00 05/20/20 16:30 05/20/20 16:27 100 05/20/20 16:20 99 05/20/20 15:13 92 09/06/20 15:02 100 Transfer of Care Handoff Completed per policy Notes Mental Status: alert / awake / arousable Patient Amnestic to Procedure: Yes Nausea / Vomiting: adequately controlled Pain: adequately controlled Airway Patency, RR, SpO2: stable & adequate BP & HR: stable & adequate Hydration State: stable & adequate Anesthetic Complications: no major complications apparent and Pt Satisfied with anesthetic care Notes: The patient is awake and comfortable. Her vital signs are stable.
[2020-05-21] MEDS: ENOXAPARIN INJ 40 MG/0.4 ML SYR SQ SCH (17:36)
[2020-05-21] MEDS: TRAZODONE HCL 100 MG TAB PO SCH (20:17)
[2020-05-21] MEDS: MONTELUKAST SODIUM 10 MG TABLET PO SCH (20:17)
[2020-05-21] MEDS: ROPINIROLE HCL 1 MG TABLET PO SCH (20:19)
[2020-05-21] MEDS: LOSARTAN POTASSIUM 50 MG TAB PO SCH (20:20)
[2020-05-22] MEDS: NITROGLYCERIN 2% OINTMENT 30GM TUBE EXT SCH ×3 (00:39→12:06)
[2020-05-22 06:34] LABS: Basophils # (auto) 0.02 K/uL (0-0.2); Basophils % (auto) 0.5 %; Eosinophils # (auto) 0.24 K/uL (0-0.5); Eosinophils % (auto) 5.6 %; Hematocrit (blood only) 38.5 % (37-47); Hemoglobin 12.9 g/dL (12.0-16.0); Immature Granulocytes # (auto) 0.01 K/uL (0.00-0.02); Immature Granulocytes % (auto) 0.2 %; Lymphocytes # (auto) 1.91 K/uL (1.2-3.4); Lymphocytes % (auto) 44.2 %; Mean Corpuscular Hemoglobin 33.2 pg (25-34); Mean Corpuscular Hgb Conc 33.5 g/dL (32-36); Mean Platelet Volume 10.9 fL (7.4-10.4); Monocytes # (auto) 0.32 K/uL (0.11-0.59); Monocytes % (auto) 7.4 %; Neutrophils # (auto) 1.82 K/uL (1.4-6.5); Neutrophils % (auto) 42.1 %; Platelet Count 193 K/uL (130-400); RDW Coefficient of Variation 12.5 % (11.5-14.5); RDW Standard Deviation 44.8 fL (36.4-46.3); Red Blood Count 3.89 M/uL (4.2-5.4); White Blood Count 4.32 K/uL (4.8-10.8)
[2020-05-22 07:08] LABS: BUN Creatinine Ratio 19.4 (10-20); Calcium 8.4 mg/dl (8.5-10.1); Est GFR (African American) 113.6; Potassium 4.1 mmol/L (3.5-5.1)
[2020-05-22] MEDS: FAMOTIDINE 20 MG TAB PO SCH ×2 (07:20→21:09)
[2020-05-22] MEDS: CYCLOBENZAPRINE HCL 10 MG TAB PO PRN ×2 (07:27→21:26)
[2020-05-22] MEDS: HYDROCODONE/ACETAMOPHEN 5/325MG TAB PO PRN ×2 (07:27→21:26)
[2020-05-22] MEDS: FEXOFENADINE 60 MG TAB PO SCH ×3 (09:13→21:18)
[2020-05-22] MEDS: GABAPENTIN 300 MG CAP PO SCH ×2 (09:13→21:10)
[2020-05-22] MEDS: CITALOPRAM 20 MG TAB PO SCH (09:13)
[2020-05-22] MEDS: LINACLOTIDE PO SCH (09:14)
[2020-05-22] MEDS: CEROVITE ADV FORMULA TAB PO SCH (09:14)
[2020-05-22] MEDS: FLUTICASONE/VILANTEROL 100/25MCG 14 PUFFS/INHALER INH SCH (09:15)
[2020-05-22] MEDS: FLUTICASONE PROPIONATE NA SPR 16 GM BTL NAE SCH ×2 (09:16→21:09)
[2020-05-22] MEDS: FUROSEMIDE 40 MG TAB PO SCH (09:17)
[2020-05-22] MEDS: ENOXAPARIN INJ 40 MG/0.4 ML SYR SQ SCH (09:17)
[2020-05-22] MEDS ORDERED: PANTOprazole 40 MG in SYRINGE 0 ML IV SCH (11:00)
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
[2020-05-22] MEDS ORDERED: bisacodyL 10 MG SUPP PR STA (12:39)
--- NOTE | 2020-05-22 13:41 | Gastroenterology Progress Note ---
Date of Service May 22, 2020 Assessment & Plan (1) Dysphagia: 55 y/o female pt admitted with chest pain, GI consulted for dysphagia to solid food. EGD 05/21/20 with small hiatal hernia, diffuse moderate inflammation in the gastric antrum, medium amt of food residue in the stomach; bx and cells for cytology pending; preliminary fungal smear is neg. - Await cytology, bx results - If fungal results + for libra, would tx with antifungal - Can advance diet to regular - Would continue PPI daily - Continue Pepcid daily - Consider [facility] as an outpt GI will sign off. Please see addendum below with additional recommendation from my supervising physician. Admission and Anticipated Discharge Date Admission Date: May 21, 2020 Supervising Physician Co-Signing Physician Notes I performed a history and physical examination of the patient today, including specifically on physical exam - soft abdomen. I have discussed the patient's management with the advanced practitioner. Please refer to the nurse practitioner's note for the documented findings and plan of care. Advance diet. Recall GI if needed. Subjective Pt seen and examined. Doing well; is hungry for regular diet. No n/v, chest pain, dyspnea. Review of Systems Review of Systems: All systems reviewed & are unremarkable except as noted in HPI & below Physical Exam Constitutional: WD/WN, vitals as above Respiratory: normal respiratory effort Cardiovascular: Rate/Rhythm: regular rate and regular rhythm Gastrointestinal (Abdomen): Inspection/Auscultation: abdomen normal to inspection Percussion/Palpation: abdomen soft; abdomen nontender Skin: no rashes, warm and dry Psychiatric: A+Ox3, euthymic affect Results & Data ([facility]) Vital Signs (Past 12 Hours) Vital Signs Temp Pulse Pulse Resp BP Pulse Ox 05/22/20 11:21 36.7 C 69 18 107/70 95 05/22/20 07:00 69 05/22/20 06:59 36.7 C 68 20 110/71 99 05/22/20 04:08 37 C 70 18 108/69 98 Laboratory Results 05/22/20 05/22/20 Range/Units 06:07 06:07 WBC 4.32 L (4.8-10.8) K/uL RBC 3.89 L (4.2-5.4) M/uL Hgb 12.9 (12.0-16.0) g/dL Hct 38.5 (37-47) % MCV 99.0 (80-100) fL MCH 33.2 (25-34) pg MCHC 33.5 (32-36) g/dL RDW Std Deviation 44.8 (36.4-46.3) fL RDW Coeff of Joyce 12.5 (11.5-14.5) % Plt Count 193 (130-400) K/uL MPV 10.9 H (7.4-10.4) fL Immature Gran % (Auto) 0.2 % Neut % (Auto) 42.1 % Lymph % (Auto) 44.2 % [place] % (Auto) 7.4 % Eos % (Auto) 5.6 % Baso % (Auto) 0.5 % Neut # (Auto) 1.82 (1.4-6.5) K/uL Lymph # (Auto) 1.91 (1.2-3.4) K/uL [place] # (Auto) 0.32 (0.11-0.59) K/uL Eos # (Auto) 0.24 (0-0.5) K/uL Baso # (Auto) 0.02 (0-0.2) K/uL Immature Gran # (Auto) 0.01 (0.00-0.02) K/uL Sodium 141 (136-145) mmol/L Potassium 4.1 (3.5-5.1) mmol/L Chloride 108 H (98-107) mmol/L Carbon Dioxide 29 (21-32) mmol/L Anion Gap 4.0 (3-11) BUN 13 (7-18) mg/dl Creatinine 0.69 (0.6-1.2) mg/dl Est Cr Clr Drug Dosing 90.0 ml/min Est GFR ( Amer) 113.6 Est GFR (Non-Af Amer) 98.0 BUN/Creatinine Ratio 19.4 (10-20) Glucose 128 H (70-99) mg/dl Calcium 8.4 L (8.5-10.1) mg/dl
[2020-05-22] MEDS: LOSARTAN POTASSIUM 50 MG TAB PO SCH (21:08)
[2020-05-22] MEDS: PANTOprazole 40 MG TAB PO SCH (21:08)
[2020-05-22] MEDS: MONTELUKAST SODIUM 10 MG TABLET PO SCH (21:08)
[2020-05-22] MEDS: ROPINIROLE HCL 1 MG TABLET PO SCH (21:08)
[2020-05-22] MEDS: TRAZODONE HCL 100 MG TAB PO SCH (21:10)
[2020-05-22] MEDS: LORazepam 1 MG TAB PO PRN (21:26)
[2020-05-23] MEDS: HYDROCODONE/ACETAMOPHEN 5/325MG TAB PO PRN ×2 (06:19→20:58)
[2020-05-23] MEDS: CYCLOBENZAPRINE HCL 10 MG TAB PO PRN ×2 (06:19→20:58)
[2020-05-23] MEDS ORDERED: ALBUTEROL HFA 8 GM INHALER INH PRN (06:27)
[2020-05-23 06:32] LABS: Hemoglobin 14.1 g/dL (12.0-16.0); Mean Corpuscular Hemoglobin 32.6 pg (25-34); Mean Corpuscular Hgb Conc 33.6 g/dL (32-36); Mean Corpuscular Volume 97.2 fL (80-100); Mean Platelet Volume 11.1 fL (7.4-10.4); Platelet Count 188 K/uL (130-400); RDW Coefficient of Variation 12.3 % (11.5-14.5); RDW Standard Deviation 43.4 fL (36.4-46.3); Red Blood Count 4.32 M/uL (4.2-5.4); White Blood Count 5.36 K/uL (4.8-10.8)
[2020-05-23 06:59] LABS: BUN Creatinine Ratio 19.6 (10-20); Calcium 9.3 mg/dl (8.5-10.1); Creatinine Clr Calc Pharmacy 80.2 ml/min; Est GFR (African American) 100.7; Est GFR (Non-African American) 86.9; Potassium 3.9 mmol/L (3.5-5.1)
[2020-05-23] MEDS: FEXOFENADINE 60 MG TAB PO SCH (08:18)
[2020-05-23] MEDS: FLUTICASONE PROPIONATE NA SPR 16 GM BTL NAE SCH (08:18)
[2020-05-23] MEDS: FUROSEMIDE 40 MG TAB PO SCH (08:18)
[2020-05-23] MEDS: FLUTICASONE/VILANTEROL 100/25MCG 14 PUFFS/INHALER INH SCH (08:18)
[2020-05-23] MEDS: CITALOPRAM 20 MG TAB PO SCH (08:18)
[2020-05-23] MEDS: LINACLOTIDE PO SCH (08:19)
[2020-05-23] MEDS: PANTOprazole 40 MG TAB PO SCH ×2 (08:19→20:58)
[2020-05-23] MEDS: ENOXAPARIN INJ 40 MG/0.4 ML SYR SQ SCH (08:19)
[2020-05-23] MEDS: CEROVITE ADV FORMULA TAB PO SCH (08:19)
[2020-05-23] MEDS: FAMOTIDINE 20 MG TAB PO SCH ×2 (08:19→20:57)
[2020-05-23] MEDS: GABAPENTIN 300 MG CAP PO SCH ×2 (08:19→20:55)
[2020-05-23 08:20] LABS: Folate (Folic Acid) 12.5 ng/ml (>5.38)
--- NOTE | 2020-05-23 09:07 | XRay Report ---
KUB CLINICAL HISTORY: Constipation. FINDINGS: 2 AP supine abdominal radiographs are compared to study dated 12/09/2019 and correlated with abdominal CT dated 10/11/2019. Cholecystectomy clips are noted in the right upper quadrant. There is a nonobstructed abdominal bowel gas pattern noting moderate colonic fecal retention. A round hyperden sity projecting over the left upper quadrant likely represents a pill fragment. There are no abnormal abdominal calcifications. The bony structures appear intact. IMPRESSION: Moderate constipation. Electronically signed by: Johan Rogers M.D. 05/23/2020 9:06 AM
--- NOTE | 2020-05-23 09:29 | Hospitalist Progress Note ---
Date of Service May 23, 2020 Assessment & Plan (1) Esophageal dysphagia: * Consulted GI for EGD given 40 pounds weight loss and uncontrolled asthma (?chronic aspirations) likely related to this with uncontrolled reflux despite pantoprazole and famotidine. Noted prior GI consults in November and September with outpatient EGD/colonoscopy rather than inpatient recommended due to concurrent pneumonia in September and cholelithiasis in November. * GI consulted -- appreciate assistance * s/p EGD on 05/21 which showed small hiatal hernia, diffuse moderate inflammation in the gastric antrum, medium amount of food residue in the stomach fungal smear negative, h.pylori stain with focal granular staining that does not resemble typical organisms but felt non-specific and not keeping with true H.pylori organisms. * Diet with gravies/sauces * Protonix 40g BID and Pepcid * Recommend gastric emptying study outpatient--> Could consider barium swallow if patient develops worsening difficulty with swallowing although has been tolerating diet without much difficulty today * Speech consulted -- rec pills in a carrier * Patient also with chronic constipation and likely contributing to worsening dysphagia * KUB with moderate constipation as well as likely pill fragment * --> currently had small BM "2 pellets" this morning and 5 marble sized pieces of dry hardened stool this afternoon after mag citrate/enema * Has been on miralax daily outpatient with Linzess--> will continue and add colace BID in addition to additional 1/2 bottle mag citrate and fleet enema and repeat KUB in AM (2) Chronic constipation: * MiraLAX x2. Continue Linzess. Last "normal" BM 05/20 --> 2 small "pellets" this morning and 5 this afternoon witnessed by myself * Repeating mag citrate/fleet enema as above and ordered scheduled miralax/colace BID * -- patient reports BM > Q7D outpatient --> would benefit from GES as above * Continue to monitor (3) Chest pain: * Similar to her longstanding chest pain going on for weeks, constant and nonexertional. Worsened with eating or taking her pills. Trop <0.015 * Nitropaste discontinued 05/22 for headache and has not had repeat CP reported since that time * None further at today currently * Continue with PPI/Pepcid daily, IV protonix d/c'd * IVF discontinued 05/22 as she has been tolerating diet (4) Anxiety: * and depression, with reported panic attacks * Continue with lorazepam, but increased to 1mg prn as that is what she has been taking outpatient * Psych consulted -- rec increasing Celexa to 30mg --> increased on 05/23 * Benefit from outpatient psychiatric care (5) GERD (gastroesophageal reflux disease): * Avoid alcohol. * Continue pantoprazole 40 mg p.o. twice daily, famotidine 20 mg p.o. twice daily * Consult GI as above -- defer Carafate as patient unable to tolerate (6) Oropharyngeal dysphagia: * Consult speech and language therapy as pills getting stuck at the back of her throat --> to take pills in a carrier * Chronic cough ?chronically aspirating. CXR negative for acute process (7) Post-nasal drip: * Per patient, improved now that she is sitting more upright in bed * Flonase 1 spray each nostril twice daily -- patient refused and wanted this discontinued * Started Yareli 60 mg p.o. twice daily --> reduced to once daily in the morning * also added saline to oxygen (8) Cough: * Suspect secondary to GERD versus postnasal drip, improved * Treatment as above (9) Asthma: * Breo Ellipta 1 inhalation daily. * Albuterol 2 puffs prn wheezing. (10) Chronic respiratory failure with hypoxia: * Currently on 2 L at home -- added humidification * Aim O2 sats > 94% --currently 96% on RA * Suspect patient likely with component of sleep apnea and would benefit from outpatient sleep study as she has been saturating fine at times off of oxygen (11) History of ETOH abuse: * Advised to stop all alcohol use as suspect this led to her recent hospitalization. (12) Restless leg syndrome: * Continue ropinirole 1 mg p.o. at bedtime (13) HTN (hypertension): * Stop Sudafed. * Continue home medications losartan 100 mg p.o. at bedtime * Continue Lasix 40 mg p.o. daily (although suspect her recent hospitalization in [facility] was more asthma exacerbation from aspiration in setting of alcohol intoxication than CHF) -- Cr stable (14) Abnormal TSH: * TSH 0.273 November 2019 --> repeat TSH wnl at 0.635 (15) Ganglion cyst of dorsum of right wrist: * Cause of pain on back of right wrist. * Pt notes she had issues with it in the past, used a brace with resolution and stopped using the brace and now the pain is back * Discussed with patient for outpatient follow-up at discharge (16) Sprain of anterior talofibular ligament of right ankle: * Chronic repeated sprains with instability since she continues to fall over on this. * Falls risk * PT eval with rec to return home and f/u with ortho outpatient (17) Avascular necrosis of left humeral head: * Noted on prior CT chest. Recommend outpatient follow-up. (18) DVT prophylaxis: * SCDs * Lovenox SQ Dispo: working on bowel regimen but hopeful for discharge tomorrow if successful and will need outpatient follow up with PCP for GES Admission and Anticipated Discharge Date Admission Date: May 21, 2020 Subjective Patient evaluated this morning. Bit of a rough night with loud/snoring roommate and states she did not get much sleep. Tolerated diet without as much difficulty with sauces/gravies. Concerns regarding constipation and if it worsens she will have increased issues with her swallowing. She states she had two small formed pellet BM this morning but had increased distention/discomfort today. KUB with moderate constipation. Discussed ordering Metamucil, mag citrate and enema to see if we can get things moving further. She does note issues with previous hospitalization between August 2018-February 2019 at [facility] and was called psych on for constipation and told she was making it up and ended up going 17 days without a bowel movement and ended up with an obstruction and she feels this was wrongly missed despite her believing they had completed a CT scan and KUB that should have showed this and would like this further investigated. She states she called Dr. Mancini's office but that she will further look into the date as she doesn't delete anything and will alert nursing to the date to notify me this evening. She also states she takes melatonin 10mg at night to sleep and was upset this was not provided. Reviewed medication list and discussed that it was ordered but as prn and that she would have had to request this medication. Will change to scheduled to prevent further issues. Yareli no longer taken outpatient but with post-nasal drip she is willing to utilize this in the morning but not in the evening. Discussed benadryl but that we did not order this and will utilize melatonin tonight. If no improvement could consider adding this moving forward. Later this evening patient requested to speak with me. Upon arrival she states she did have small BM, consisting of 5 formed marble size pellets that "dinged" like metal in the hat when they came out due to dryness. Discussed repeating the enema and other half a bottle of mag citrate to see if further BM and that she may have to be on a heavier bowel regimen at discharge until she is able to have her gastric emptying study done. No fever, chills, chest pain, shortness of breath. Review of Systems Review of Systems: All systems reviewed & are unremarkable except as noted in HPI & below Physical Exam Constitutional: well developed, well nourished and + obese Eyes: + anicteric sclerae; normal pupil size ENMT: Ears: no external ear abnormality Nose: no external nose abnormality Neck: trachea midline, no thyromegaly Respiratory: normal respiratory effort and able to speak in complete sentences; no respiratory distress, no labored breathing and does not use accessory muscles Auscultation: + rhonchi (minimal, bilateral); no diminished lung sounds and no wheezes on room air Cardiovascular: RRR, no murmur, no edema Vessels: no JVD Extremities: normal capillary refill; no calf tenderness Gastrointestinal (Abdomen): Inspection/Auscultation: normal bowel sounds; abdomen not distended Percussion/Palpation: + abdomen tender (Epigastric, no rebound) and abdomen soft; no guarding and abdomen not rigid Skin: no rashes, warm and dry Neurologic: moves all extremities and awake; no focal motor deficits and not confused Speech / Cognition: normal speech Motor/Sensory: no tremor and no pronator drift Psychiatric: Orientation: alert and oriented x 3 Affect: + anxious affect Genitourinary: no CVA tenderness Lymphatic: no cervical or axillary lymphadenopathy Results & Data Results & Data ([facility]) Vital Signs (Past 12 Hours) Vital Signs Temp Pulse Pulse Resp BP Pulse Ox 05/23/20 07:44 76 05/23/20 07:12 37.3 C 85 16 101/65 91 05/23/20 03:25 36.8 C 78 18 124/83 91 05/23/20 00:52 93 H 05/22/20 23:09 36.8 C 83 19 119/85 98 Laboratory Results 05/23/20 05/23/20 05/23/20 Range/Units 05:48 05:48 05:48 WBC (4.8-10.8) K/uL RBC (4.2-5.4) M/uL Hgb (12.0-16.0) g/dL Hct (37-47) % MCV (80-100) fL MCH (25-34) pg MCHC (32-36) g/dL RDW Std Deviation (36.4-46.3) fL RDW Coeff of Joyce (11.5-14.5) % Plt Count (130-400) K/uL MPV (7.4-10.4) fL Sodium 140 (136-145) mmol/L Potassium 3.9 (3.5-5.1) mmol/L Chloride 105 (98-107) mmol/L Carbon Dioxide 31 (21-32) mmol/L Anion Gap 4.0 (3-11) BUN 15 (7-18) mg/dl Creatinine 0.77 (0.6-1.2) mg/dl Est Cr Clr Drug Dosing 80.2 ml/min Est GFR ( Amer) 100.7 Est GFR (Non-Af Amer) 86.9 BUN/Creatinine Ratio 19.6 (10-20) Glucose 185 H (70-99) mg/dl Calcium 9.3 (8.5-10.1) mg/dl Vitamin B1 Pending Vitamin B12 484 (211-911) pg/ml Folate 12.50 (>5.38) ng/ml 05/23/20 Range/Units 05:48 WBC 5.36 (4.8-10.8) K/uL RBC 4.32 (4.2-5.4) M/uL Hgb 14.1 (12.0-16.0) g/dL Hct 42.0 (37-47) % MCV 97.2 (80-100) fL MCH 32.6 (25-34) pg MCHC 33.6 (32-36) g/dL RDW Std Deviation 43.4 (36.4-46.3) fL RDW Coeff of Joyce 12.3 (11.5-14.5) % Plt Count 188 (130-400) K/uL MPV 11.1 H (7.4-10.4) fL Sodium (136-145) mmol/L Potassium (3.5-5.1) mmol/L Chloride (98-107) mmol/L Carbon Dioxide (21-32) mmol/L Anion Gap (3-11) BUN (7-18) mg/dl Creatinine (0.6-1.2) mg/dl Est Cr Clr Drug Dosing ml/min Est GFR ( Amer) Est GFR (Non-Af Amer) BUN/Creatinine Ratio (10-20) Glucose (70-99) mg/dl Calcium (8.5-10.1) mg/dl Vitamin B1 Vitamin B12 (211-911) pg/ml Folate (>5.38) ng/ml Diagnostic Findings KUB IMPRESSION: Moderate constipation PG Care Time/CCT Total # of Minutes Spent Total Time Spent with Patient: Total time spent is greater than 50% in coordination of care (as documented) at patient's floor/unit and/or counseling patient: Coding Level of Care Code 99944 Subseq Hosp Care Lvl 3 Diagnoses Esophageal dysphagia R13.10 Chronic constipation K59.09 Chest pain R07.9 Anxiety F41.9 GERD (gastroesophageal reflux disease) K21.9 Oropharyngeal dysphagia R13.12 Post-nasal drip R09.82 Cough R05 Asthma J45.909 Chronic respiratory failure with hypoxia J96.11 History of ETOH abuse F10.11 Restless leg syndrome G25.81 HTN (hypertension) I10 Abnormal TSH R79.89 Ganglion cyst of dorsum of right wrist M67.431 Sprain of anterior talofibular ligament of right ankle S93.491A Avascular necrosis of left humeral head M87.022 DVT prophylaxis Z29.9
[2020-05-23] MEDS ORDERED: MAGNESIUM CITRATE 296 ML/BTL PO ONE ×2 (12:45→16:30)
[2020-05-23] MEDS ORDERED: SOD PHOSPHATE/SOD BIPHOSPHATE ENEMA 132 ML BTL PR STA (12:54)
[2020-05-23] MEDS: PSYLLIUM 58.6% POWDER PACKET PO SCH (14:11)
[2020-05-23] MEDS ORDERED: MINERAL OIL ENEMA 133 ML BTL PR ONE (16:18)
[2020-05-23] MEDS: POLYETHYLENE (MIRALAX) 17 GM PACK PO SCH (17:10)
[2020-05-23] MEDS: MONTELUKAST SODIUM 10 MG TABLET PO SCH (20:55)
[2020-05-23] MEDS: ROPINIROLE HCL 1 MG TABLET PO SCH (20:55)
[2020-05-23] MEDS: MELATONIN 3 MG TAB PO SCH (20:56)
[2020-05-23] MEDS: DOCUSATE SODIUM 100 MG CAP PO SCH (20:56)
[2020-05-23] MEDS: TRAZODONE HCL 100 MG TAB PO SCH (20:57)
[2020-05-23] MEDS: LOSARTAN POTASSIUM 50 MG TAB PO SCH (20:57)
[2020-05-23] MEDS: LORazepam 1 MG TAB PO PRN (20:58)
[2020-05-24] MEDS ORDERED: MAGNESIUM CITRATE 296 ML/BTL PO STA (06:36)
[2020-05-24] MEDS ORDERED: SOD PHOSPHATE/SOD BIPHOSPHATE ENEMA 132 ML BTL PR STA (06:36)
[2020-05-24 07:09] LABS: Creatinine Clr Calc Pharmacy 73.4 ml/min; Est GFR (African American) 90.7; Est GFR (Non-African American) 78.2
[2020-05-24] MEDS: DOCUSATE SODIUM 100 MG CAP PO SCH ×2 (08:12→20:33)
[2020-05-24] MEDS: FAMOTIDINE 20 MG TAB PO SCH ×2 (08:12→20:32)
[2020-05-24] MEDS: PANTOprazole 40 MG TAB PO SCH ×2 (08:12→20:32)
[2020-05-24] MEDS: GABAPENTIN 300 MG CAP PO SCH ×2 (08:12→20:32)
[2020-05-24] MEDS: FUROSEMIDE 40 MG TAB PO SCH (08:13)
[2020-05-24] MEDS: CEROVITE ADV FORMULA TAB PO SCH (08:13)
[2020-05-24] MEDS: CITALOPRAM 20 MG TAB PO SCH (08:13)
[2020-05-24] MEDS: FEXOFENADINE HCL 180 MG TAB PO SCH (08:14)
[2020-05-24] MEDS: POLYETHYLENE (MIRALAX) 17 GM PACK PO SCH (08:14)
[2020-05-24] MEDS: LINACLOTIDE PO SCH (08:17)
[2020-05-24] MEDS: PSYLLIUM 58.6% POWDER PACKET PO SCH (08:20)
[2020-05-24] MEDS: ENOXAPARIN INJ 40 MG/0.4 ML SYR SQ SCH (08:22)
[2020-05-24] MEDS: FLUTICASONE/VILANTEROL 100/25MCG 14 PUFFS/INHALER INH SCH (08:25)
--- NOTE | 2020-05-24 09:52 | XRay Report ---
KUB CLINICAL HISTORY: Constipation. FINDINGS: 2 AP supine abdominal radiographs are compared to study dated 05/23/2020 and correlated with abdominal CT dated 10/11/2019. Cholecystectomy clips are noted in the right upper quadrant. There is a nonobstructed abdominal bowel gas pattern. Mild to moderate fecal retention is noted. There are no a bnormal abdominal calcifications. The bony structures appear intact. IMPRESSION: There is mild to moderate colonic fecal retention. This has modestly improved from yester day. Electronically signed by: Johan Rogers M.D. 05/24/2020 9:50 AM
--- NOTE | 2020-05-24 10:54 | Hospitalist Progress Note ---
Date of Service May 24, 2020 Assessment & Plan (1) Chronic constipation: Chronic issue but causing acute issues with regards to her esophageal dysphagia likely due to small hiatal hernia in combination with slowed GI transit (also utilizes opioids) * Continue Linzess. * KUB this morning prior to BM with mild-moderate colonic fecal retention, modestly improved from yesterday * Multiple bowel movements later this afternoon, after requiring multiple miralax, colace, metamucil, fleet enema, mineral oil enema, and dulcolax suppository in addition to mag citrate x 1.5 bottles * GI consulted for esophageal dysphagia. EGD performed which showed medium amount of food residue in stomach * -- patient reports BM > Q7D outpatient --> would benefit from GES as above and will have patient set up appointment with Dr. Addis holman following discharge to get this addressed. * Continue miralax, colace, metamucil, mag citrate and will add fleet enema prn * KUB in AM * Of note, patient has never had colonoscopy in the past and given current situation would benefit from further evaluation * Continue to monitor (2) Esophageal dysphagia: * Consulted GI for EGD given 40 pounds weight loss and uncontrolled asthma (?chronic aspirations) likely related to this with uncontrolled reflux despite pantoprazole and famotidine. Noted prior GI consults in November and September with outpatient EGD/colonoscopy rather than inpatient recommended due to concurrent pneumonia in September and cholelithiasis in November. * GI consulted -- appreciate assistance * s/p EGD on 05/21 which showed small hiatal hernia, diffuse moderate inflammation in the gastric antrum, medium amount of food residue in the stomach fungal smear negative, h.pylori stain with focal granular staining that does not resemble typical organisms but felt non-specific and not keeping with true H.pylori organisms. * Diet with gravies/sauces * Protonix 40g BID and Pepcid * Recommend gastric emptying study outpatient--> Could consider barium swallow if patient develops worsening difficulty with swallowing although has been tolerating diet without much difficulty today * Speech consulted -- rec pills in a carrier * Patient also with chronic constipation and likely contributing to worsening dysphagia (3) Chest pain: Improved * Similar to her longstanding chest pain going on for weeks, constant and nonexertional. Worsened with eating or taking her pills. Trop <0.015 * Nitropaste discontinued 05/22 for headache and has not had repeat CP reported since that time * Continue with PPI/Pepcid daily, IV protonix d/c'd * IVF discontinued 05/22 as she has been tolerating diet (4) Anxiety: * and depression, with reported panic attacks * Lorazepam 1mg prn as that is what she has been taking outpatient * Psych consulted -- appreciate asssitance * Increased celexa to 30mg daily, to be continued at discharge and could be titrated up * Benefit from outpatient psychiatric care --> next scheduled appointment with Dr. Laguerre June 01, 11:00 by phone and doctor will be calling her directly. Previous appt May 18 missed. (5) GERD (gastroesophageal reflux disease): * Avoid alcohol. * Continue pantoprazole 40 mg p.o. twice daily, famotidine 20 mg p.o. twice daily * Consult GI as above (6) Post-nasal drip: * Per patient, improved now that she is sitting more upright in bed * Flonase 1 spray each nostril twice daily -- patient refused and wanted this discontinued * Started Yareli 60 mg p.o. twice daily --> reduced to once daily in the morning (7) Cough: * Suspect secondary to GERD versus postnasal drip * No cough reported today * Treatment as above (8) Asthma: * Breo Ellipta 1 inhalation daily. * Albuterol 2 puffs prn wheezing. (9) Chronic respiratory failure with hypoxia: * Currently on 2 L at home * Currently 91% on RA * Suspect patient likely with component of sleep apnea and would benefit from outpatient sleep study as she has been saturating fine at times off of oxygen --> she reported drops down to 50-70s with exertion at home and discussed that she follows with Fei Kiser outpatient. She states she had seen a collegaue of his and did not particularly have a good interaction and that she would like to see Fei in follow-up after discharge (10) History of ETOH abuse: * Advised to stop all alcohol use as suspect this led to her recent hospitalization. * B12, folate wnl * B1 pending (11) Restless leg syndrome: * Continue ropinirole 1 mg p.o. at bedtime (12) HTN (hypertension): * Stop Sudafed. * Continue home medications losartan 100 mg p.o. at bedtime * Continue Lasix 40 mg p.o. daily (although suspect her recent hospitalization in [facility] was more asthma exacerbation from aspiration in setting of alcohol intoxication than CHF) -- Cr stable (13) Abnormal TSH: * TSH 0.273 November 2019 --> repeat TSH wnl at 0.635 (14) Ganglion cyst of dorsum of right wrist: * Cause of pain on back of right wrist. * Pt notes she had issues with it in the past, used a brace with resolution and stopped using the brace and now the pain is back * Discussed with patient for outpatient follow-up at discharge (15) Sprain of anterior talofibular ligament of right ankle: * Chronic repeated sprains with instability since she continues to fall over on this. * Falls risk * PT eval with rec to return home and f/u with ortho outpatient (16) Avascular necrosis of left humeral head: * Noted on prior CT chest. Recommend outpatient follow-up with PCP (17) Insomnia: * Melatonin 9mg changed to scheduled evening 05/23 with patient reporting that she actually was able to sleep last night -- continue (18) DVT prophylaxis: * SCDs * Lovenox SQ Dispo: working on bowel regimen but hopeful for discharge tomorrow if successful and will need outpatient follow up with PCP for GES Admission and Anticipated Discharge Date Admission Date: May 21, 2020 Subjective Patient evaluated this morning. She did get some sleep last night with the melatonin. Some back pain this morning and would like her pain medication as ordered. She did have one small marble sized darkened, hardened stool in hat this morning but she had not had her mag citrate or enema as she had been sleeping and then was down at xray for her KUB. She states the date from her previous constipation is Jan 17 2019 and would like this investigated as to how they couldn't see her constipation. She is very concerned regarding what will happen once she moves her bowels and having to deal with this same issue once discharged. Discussed negative h. pylori and fungal prep from her EGD and that she will ideally benefit from GES outpatient and we will inform Dr. Mancini of this at discharge. Not much of an appetite this morning but did not have the pain like day prior. Discussed her oxygen requirement and if she had ever been weaned off of this. She states she had been following with Fei kiser but was seen by his colleague and told she did not have COPD. She states she does sometimes not wear her oxygen at rest at home but with ambulation she will drop into the 70-80s and a low of 50 earlier this month. Later this afternoon, returned to patient's room after being notified she had a bowel movement. Patient stated that she had five bowel movements, some liquid. She had not yet given herself the enema this morning but is planning on utilizing the other half the bottle of mag citrate this afternoon. Discussed continuing current regimen and we will continue at discharge to ensure regularity until she is able to have emptying study. Also informed patient of blood type, O negative, as previously requested. Of note, she has never actually had a colonoscopy. Review of Systems Review of Systems: All systems reviewed & are unremarkable except as noted in HPI & below Physical Exam Constitutional: well developed, well nourished and + obese; no acute distress Eyes: + anicteric sclerae; normal pupil size Neck: trachea midline, no thyromegaly healed tracheostomy scar noted Respiratory: normal respiratory effort and able to speak in complete sentences; no respiratory distress, no labored breathing and does not use accessory muscles Auscultation: + rhonchi (minimal, bilateral); no diminished lung sounds and no wheezes Cardiovascular: RRR, no murmur, no edema Vessels: no JVD Extremities: normal capillary refill; no calf tenderness Gastrointestinal (Abdomen): Inspection/Auscultation: normal bowel sounds; abdomen not distended Percussion/Palpation: abdomen soft; abdomen nontender, no guarding and abdomen not rigid Skin: warm, dry Neurologic: moves all extremities and awake; no focal motor deficits and not confused Speech / Cognition: normal speech Motor/Sensory: no tremor Psychiatric: Orientation: alert and oriented x 3 Results & Data Results & Data ([facility]) Vital Signs (Past 12 Hours) Vital Signs Temp Pulse Pulse Resp BP Pulse Ox 05/24/20 08:39 76 05/24/20 07:02 36.6 C 68 16 108/72 99 05/24/20 02:31 36.5 C 65 18 102/68 96 05/24/20 00:26 71 05/23/20 22:59 36.9 C 70 16 119/78 99 Laboratory Results 05/24/20 Range/Units 06:26 Creatinine 0.84 (0.6-1.2) mg/dl Est Cr Clr Drug Dosing 73.4 ml/min Est GFR ( Amer) 90.7 Est GFR (Non-Af Amer) 78.2 Diagnostic Findings KUB IMPRESSION: There is mild to moderate colonic fecal retention. This has modestly improved from yesterday. PG Care Time/CCT Total # of Minutes Spent Total Time Spent with Patient: Total time spent is greater than 50% in coordination of care (as documented) at patient's floor/unit and/or counseling patient: Prolonged Care Time Prolonged Care Time: Yes Total Prolonged Care Time: 60 total time spent reviewing chart, old records, additional trips to bedside and discussion at length regarding continued bowel regimen and follow up Coding Level of Care Code 94705 Subseq Hosp Care Lvl 2 (25 - SIGNIFICANT, SEPARATELY IDENTIFIABLE ) Diagnoses Chronic constipation K59.09 Esophageal dysphagia R13.10 Chest pain R07.9 Anxiety F41.9 GERD (gastroesophageal reflux disease) K21.9 Post-nasal drip R09.82 Cough R05 Asthma J45.909 Chronic respiratory failure with hypoxia J96.11 History of ETOH abuse F10.11 Restless leg syndrome G25.81 HTN (hypertension) I10 Abnormal TSH R79.89 Ganglion cyst of dorsum of right wrist M67.431 Sprain of anterior talofibular ligament of right ankle S93.491A Avascular necrosis of left humeral head M87.022 Insomnia G47.00 DVT prophylaxis Z29.9 Additional Codes Prolonged Care Time - Prolonged Care Time: Yes ([id number])
[2020-05-24] MEDS: CYCLOBENZAPRINE HCL 10 MG TAB PO PRN (11:39)
[2020-05-24] MEDS: HYDROCODONE/ACETAMOPHEN 5/325MG TAB PO PRN ×2 (11:39→20:43)
[2020-05-24] MEDS ORDERED: SOD PHOSPHATE/SOD BIPHOSPHATE ENEMA 132 ML BTL PR PRN (16:27)
[2020-05-24] MEDS: LOSARTAN POTASSIUM 50 MG TAB PO SCH (20:32)
[2020-05-24] MEDS: MONTELUKAST SODIUM 10 MG TABLET PO SCH (20:33)
[2020-05-24] MEDS: TRAZODONE HCL 100 MG TAB PO SCH (20:33)
[2020-05-24] MEDS: ROPINIROLE HCL 1 MG TABLET PO SCH (20:34)
[2020-05-24] MEDS: MELATONIN 3 MG TAB PO SCH (20:34)
[2020-05-24] MEDS: LORazepam 1 MG TAB PO PRN (20:43)
[2020-05-25 07:15] LABS: Hemoglobin 15.7 g/dL (12.0-16.0); Mean Corpuscular Hemoglobin 34.5 pg (25-34); Mean Corpuscular Hgb Conc 35.7 g/dL (32-36); Mean Corpuscular Volume 96.7 fL (80-100); Platelet Count 208 K/uL (130-400); RDW Coefficient of Variation 12.7 % (11.5-14.5); RDW Standard Deviation 43.8 fL (36.4-46.3); Red Blood Count 4.55 M/uL (4.2-5.4); White Blood Count 6.38 K/uL (4.8-10.8)
[2020-05-25 07:41] LABS: BUN Creatinine Ratio 17.4 (10-20); Calcium 9.2 mg/dl (8.5-10.1); Creatinine Clr Calc Pharmacy 65.6 ml/min; Est GFR (African American) 79.2; Est GFR (Non-African American) 68.3; Magnesium 2.6 mg/dl (1.8-2.4); Potassium 4.3 mmol/L (3.5-5.1)
[2020-05-25] MEDS: FEXOFENADINE HCL 180 MG TAB PO SCH (09:13)
[2020-05-25] MEDS: CYCLOBENZAPRINE HCL 10 MG TAB PO PRN ×2 (09:15→21:11)
[2020-05-25] MEDS: GABAPENTIN 300 MG CAP PO SCH ×2 (09:16→21:14)
[2020-05-25] MEDS: DOCUSATE SODIUM 100 MG CAP PO SCH ×2 (09:16→21:12)
[2020-05-25] MEDS: CITALOPRAM 20 MG TAB PO SCH (09:16)
[2020-05-25] MEDS: PANTOprazole 40 MG TAB PO SCH ×2 (09:16→21:14)
[2020-05-25] MEDS: FAMOTIDINE 20 MG TAB PO SCH ×2 (09:17→21:13)
[2020-05-25] MEDS: FUROSEMIDE 40 MG TAB PO SCH (09:17)
[2020-05-25] MEDS: CEROVITE ADV FORMULA TAB PO SCH (09:17)
[2020-05-25] MEDS: HYDROCODONE/ACETAMOPHEN 5/325MG TAB PO PRN ×2 (09:18→21:11)
[2020-05-25] MEDS: LINACLOTIDE PO SCH (09:18)
[2020-05-25] MEDS: PSYLLIUM 58.6% POWDER PACKET PO SCH (09:18)
[2020-05-25] MEDS: POLYETHYLENE (MIRALAX) 17 GM PACK PO SCH ×2 (09:18→21:12)
[2020-05-25] MEDS: ENOXAPARIN INJ 40 MG/0.4 ML SYR SQ SCH (09:20)
--- NOTE | 2020-05-25 09:20 | XRay Report ---
KUB HISTORY: Follow up study in a patient with constipation f/u COMPARISON: KUB 05/24/2020 FINDINGS: Bowel gas pattern is nonobstructive. Cholecystectomy. Moderate fecal retention of the right hemicolon. There is moderately decreased colonic stool volume from comparison. No renal calculi. No ureteral calculi. Pelvic basin phlebolith. No pneumoperitoneum or pneumatosis. No fracture. IMPRESSION: 1. Moderate fecal retention of the right hemicolon with moderately decreased colonic stool volume fro m yesterday's exam. 2. Nonobstructive bowel gas pattern. ACT 112: Negative or not required by law. The above report was generated using voice recognition software. It may contain grammatical, syntax o r spelling errors. Electronically signed by: Kev Fountain M.D. 05/25/2020 9:19 AM
[2020-05-25] MEDS: FLUTICASONE/VILANTEROL 100/25MCG 14 PUFFS/INHALER INH SCH (09:21)
[2020-05-25] MEDS: MAGNESIUM CITRATE 296 ML/BTL PO SCH (09:35)
--- NOTE | 2020-05-25 11:20 | Hospitalist Progress Note ---
Date of Service May 25, 2020 Assessment & Plan (1) Chronic constipation: Chronic issue but causing acute issues with regards to her esophageal dysphagia likely due to small hiatal hernia in combination with slowed GI transit (also utilizes opioids) * Continue Linzess. * KUB with improvement of colonic stool volume, moderate fecal retention R hemicolon after multiple BM that required multiple miralax, colace, metamucil, fleet enema, mineral oil enema, and dulcolax suppository in addition to mag citrate x 1.5 bottles * Bowel prep ordered to help resolve given aggressive bowel regimen and continued issue * Backed diet down to clear liquids * Mag >2, K>4 to promote GI motility * Reconsult GI regarding possible colonoscopy vs GES as previously discussed per patient request . Initially GI consulted for esophageal dysphagia. * --> EGD performed which showed medium amount of food residue in stomach * -- patient reports BM > Q7D outpatient --> would benefit from GES as above and will have patient set up appointment with Dr. Addis holman following discharge to get this addressed. * Continue miralax, colace, metamucil, mag citrate, fleet enema --> increase miralax to TID * Of note, patient has never had colonoscopy in the past and given current situation would benefit from further evaluation * KUB in AM (2) Esophageal dysphagia: * Consulted GI for EGD given 40 pounds weight loss and uncontrolled asthma (?chronic aspirations) likely related to this with uncontrolled reflux despite pantoprazole and famotidine. Noted prior GI consults in November and September with outpatient EGD/colonoscopy rather than inpatient recommended due to concurrent pneumonia in September and cholelithiasis in November. * GI consulted -- appreciate assistance * s/p EGD on 05/21 which showed small hiatal hernia, diffuse moderate inflammation in the gastric antrum, medium amount of food residue in the stomach fungal smear negative, h.pylori stain with focal granular staining that does not resemble typical organisms but felt non-specific and not keeping with true H.pylori organisms. * Diet with gravies/sauces --> decreased to clear liquids for today * Protonix 40g BID and Pepcid * Recommend gastric emptying study outpatient--> Could consider barium swallow if patient develops worsening difficulty with swallowing although has been tolerating diet without much difficulty today * Speech consulted -- rec pills in a carrier * Patient also with chronic constipation and likely contributing to worsening dysphagia (3) Chest pain: Improved * Similar to her longstanding chest pain going on for weeks, constant and nonexertional. Worsened with eating or taking her pills. Trop <0.015 * Nitropaste discontinued 05/22 for headache and has not had repeat CP reported since that time * Continue with PPI/Pepcid daily, IV protonix d/c'd * IVF discontinued 05/22 as she has been tolerating diet --> resumed as above (4) Anxiety: * and depression, with reported panic attacks * Lorazepam 1mg prn as that is what she has been taking outpatient * Psych consulted -- appreciate asssitance * Increased celexa to 30mg daily, to be continued at discharge and could be titrated up * Benefit from outpatient psychiatric care --> next scheduled appointment with Dr. Laguerre June 01, 11:00 by phone and doctor will be calling her directly. Previous appt May 18 missed. (5) GERD (gastroesophageal reflux disease): * Avoid alcohol. * Continue pantoprazole 40 mg p.o. twice daily, famotidine 20 mg p.o. twice daily * Consult GI as above (6) Post-nasal drip: * Per patient, improved now that she is sitting more upright in bed * Flonase 1 spray each nostril twice daily -- d/c'd * Started Yareli 60 mg p.o. twice daily --> reduced to once daily in the morning, continued (7) Cough: * Suspect secondary to GERD versus postnasal drip * No cough reported today * Treatment as above (8) Asthma: * Breo Ellipta 1 inhalation daily. * Albuterol 2 puffs prn wheezing. (9) Chronic respiratory failure with hypoxia: * Currently on 2 L at home * Currently 93% on RA * Suspect patient likely with component of sleep apnea and would benefit from outpatient sleep study as she has been saturating fine at times off of oxygen --> she reported drops down to 50-70s with exertion at home and discussed that she follows with Fei Lima outpatient. She states she had seen a collegaue of his and did not particularly have a good interaction and that she would like to see Fei in follow-up after discharge (10) History of ETOH abuse: * Advised to stop all alcohol use as suspect this led to her recent hospitalization. * B12, folate wnl * B1 pending (11) Restless leg syndrome: * Continue ropinirole 1 mg p.o. at bedtime (12) HTN (hypertension): * Stop Sudafed. * Continue home medications losartan 100 mg p.o. at bedtime * Continue Lasix 40 mg p.o. daily (although suspect her recent hospitalization in [facility] was more asthma exacerbation from aspiration in setting of alcohol intoxication than CHF) -- Cr stable (13) Abnormal TSH: * TSH 0.273 November 2019 --> repeat TSH wnl at 0.635 (14) Ganglion cyst of dorsum of right wrist: * Cause of pain on back of right wrist. * Pt notes she had issues with it in the past, used a brace with resolution and stopped using the brace and now the pain is back * Discussed with patient for outpatient follow-up at discharge (15) Sprain of anterior talofibular ligament of right ankle: * Chronic repeated sprains with instability since she continues to fall over on this. * Falls risk * PT eval with rec to return home and f/u with ortho outpatient (16) Avascular necrosis of left humeral head: * Noted on prior CT chest. Recommend outpatient follow-up with PCP (17) Insomnia: * Melatonin 9mg changed to scheduled evening 05/23 with patient reporting that she actually was able to sleep last night -- continue (18) DVT prophylaxis: * SCDs * Lovenox SQ Admission and Anticipated Discharge Date Admission Date: May 21, 2020 Subjective Patient had 5 successful BM last evening and states she was able to urinate a larger amount, as she felt some retention previously with her constipation. No further BM since that time. Discussed ordering bowel prep today to help clean her out and will discuss with GI about possible inpatient scope vs clearing her out and GES as previously discussed. Patient agreeable at this time. Right sided abdominal pain due to palpable stool. Discussed improvement of KUB and that we will repeat this in the AM. No fever, chills, chest pain, shortness of breath, nausea, vomiting reported. Decreased appetite and feels she is dehydrated. Discussed backing down to clear liquids and will give some IVF as she is taking her prep. Agreeable at this time. Review of Systems Review of Systems: All systems reviewed & are unremarkable except as noted in HPI & below Physical Exam Constitutional: well developed, well nourished and + obese; no acute distress Eyes: + anicteric sclerae; normal pupil size ENMT: Ears: no external ear abnormality Nose: no external nose abnormality Neck: trachea midline, no thyromegaly (previous tachestomy scar noted) Respiratory: normal respiratory effort and able to speak in complete sentences; no respiratory distress, no labored breathing and does not use accessory muscles Auscultation: + crackles (bibasilar) and + rhonchi (minimal, bilateral); no diminished lung sounds and no wheezes Cardiovascular: RRR, no murmur, no edema Vessels: no JVD Extremities: normal capillary refill; no calf tenderness Gastrointestinal (Abdomen): Inspection/Auscultation: normal bowel sounds; abdomen not distended Percussion/Palpation: abdomen soft (palpable stool RUQ); abdomen nontender, no guarding and abdomen not rigid Skin: no rashes, warm and dry decreased skin turgor Neurologic: moves all extremities and awake; no focal motor deficits and not confused Speech / Cognition: normal speech Motor/Sensory: no tremor Psychiatric: Orientation: alert and oriented x 3 Affect: + anxious affect Genitourinary: no CVA tenderness Lymphatic: no cervical or axillary lymphadenopathy Results & Data Results & Data ([facility]) Vital Signs (Past 12 Hours) Vital Signs Temp Pulse Resp BP Pulse Ox 05/25/20 07:13 36.9 C 74 16 101/66 93 Laboratory Results 05/25/20 05/25/20 Range/Units 07:03 07:03 WBC 6.38 (4.8-10.8) K/uL RBC 4.55 (4.2-5.4) M/uL Hgb 15.7 (12.0-16.0) g/dL Hct 44.0 (37-47) % MCV 96.7 (80-100) fL MCH 34.5 H (25-34) pg MCHC 35.7 (32-36) g/dL RDW Std Deviation 43.8 (36.4-46.3) fL RDW Coeff of Joyce 12.7 (11.5-14.5) % Plt Count 208 (130-400) K/uL MPV 11.0 H (7.4-10.4) fL Sodium 138 (136-145) mmol/L Potassium 4.3 (3.5-5.1) mmol/L Chloride 102 (98-107) mmol/L Carbon Dioxide 29 (21-32) mmol/L Anion Gap 7.0 (3-11) BUN 16 (7-18) mg/dl Creatinine 0.94 (0.6-1.2) mg/dl Est Cr Clr Drug Dosing 65.6 ml/min Est GFR ( Amer) 79.2 Est GFR (Non-Af Amer) 68.3 BUN/Creatinine Ratio 17.4 (10-20) Glucose 146 H (70-99) mg/dl Calcium 9.2 (8.5-10.1) mg/dl Magnesium 2.6 H (1.8-2.4) mg/dl Diagnostic Findings KUB IMPRESSION: 1. Moderate fecal retention of the right hemicolon with moderately decreased colonic stool volume from yesterday's exam. 2. Nonobstructive bowel gas pattern. PG Care Time/CCT Total # of Minutes Spent Total Time Spent with Patient: Total time spent is greater than 50% in coordination of care (as documented) at patient's floor/unit and/or counseling patient: Coding Level of Care Code 35091 Subseq Hosp Care Lvl 2 Diagnoses Chronic constipation K59.09 Esophageal dysphagia R13.10 Chest pain R07.9 Anxiety F41.9 GERD (gastroesophageal reflux disease) K21.9 Post-nasal drip R09.82 Cough R05 Asthma J45.909 Chronic respiratory failure with hypoxia J96.11 History of ETOH abuse F10.11 Restless leg syndrome G25.81 HTN (hypertension) I10 Abnormal TSH R79.89 Ganglion cyst of dorsum of right wrist M67.431 Sprain of anterior talofibular ligament of right ankle S93.491A Avascular necrosis of left humeral head M87.022 Insomnia G47.00 DVT prophylaxis Z29.9
--- NOTE | 2020-05-25 14:07 | Gastrointestinal Consultation ---
Date of Consultation May 25, 2020 Assessment & Plan (1) Dysphagia: 55 y/o female pt admitted with chest pain, GI previously consulted for solid food dysphagia, and EGD 05/21/20 with small hiatal hernia, diffuse moderate inflammation in the gastric antrum, medium amt of food residue in the stomach; bx neg for H. pylori, fungal smear neg. GI re-consulted today for constipation. This is a chronic issue for her, likely slow-transit, with contributing factors being chronic narcotic use and not moving around much during her hospitalization. It appears this is somewhat improved given large BM yesterday and improved KUB today. Abd is soft. - As before, consider GES as an outpt - For constipation, would continue daily Linzess 290 mcg - Can increase Miralax BID-TID PRN - Colace daily - Can try 1/2 bottle or so of GoLytely for bowel clean out - Encourage OOB as much as possible; aim to keep K > 4 and Mg > 2 to promote bowel motility - Recommend outpt colonoscopy for screening purposes; and explained this would not cure/treat constipation. Pt was not pleased to hear that inpatient colonoscopy not recommended; pt also informed that it's not necessary or feasible to completely empty the colon at all times. GI will sign off. Please see addendum below with additional recommendation from my supervising physician. Supervising Physician Co-Signing Physician Notes I performed a history and physical examination of the patient today, including specifically on physical exam - soft abdomen. I have discussed the patient's management with the advanced practitioner. Please refer to the nurse practitio ner's note for the documented findings and plan of care. GI recall for chronic constipation, never had a colonoscopy. Plan for colonoscopy as OP. Patient understood this is elective procedure and agreed for OP follow up. Recall GI if needed. History of Present Illness Reason for Consultation: constipation Attending Physician: Jonathan Salazar MD History of Present Illness Pt is a 55 y/o female with PMhx chronic abd pain, chronic constipation, chronic pain on chronic narcotics, T2DM, HTN and others, admitted with chest pain, GI consulted previously this admission for solid food dysphagia, and EGD 05/21/20 with small hiatal hernia, diffuse moderate inflammation in the gastric antrum, medium amt of food residue in the stomach; fungal smear neg, bx = neg for H. pylori. Pt advised to have GES as outpt; continue PPI. GI re-consulted today for constipation. Pt notes this is a chronic issue for her, which continues during her hospitalization. She chronically can go more than 1 week with no BMs, usually has to use an enema for relief; on Linzess and Miralax daily. Nursing notes with last BM yesterday and was large, soft and brown. However pt concerned that she still has retained stool in the colon. Pt being tx with her usual Linzess 290 mcg daily, Miralax daily, with the addition of Mag Citrate, Fleets Enema, and now GoLytely. She's had several KUBs this week, most recently today with moderate fecal retention in the right hemicolon, (decreased from yesterday's exam), no obstruction. She's never had a screening colonoscopy. Labs are stable with CBC, BMP WNL, Mg 2.6, TSH WNL. VSS. Pt currently denies significant abd pain, n/v, fever, black or bloody stool. She is not OOB very much; states she drops her O2 sat, however nursing notes that portable O2 is available. Allergies Allergy/AdvReac Type Severity Reaction Status Date / Time house dust Allergy Intermediate Difficulty Verified 05/20/20 16:42 Breathing red dye Allergy Intermediate RED FOOD Verified 05/20/20 16:42 DYE CAUSES SEVERE ASTHMA ATTACK yellow dye Allergy Intermediate YELLOW Verified 05/20/20 16:42 FOOD DYE CAUSES SEVERE ASTHMA ATTACK diphtheria toxoid,fluid Allergy Mild Unknown Verified 05/20/20 16:42 tetanus toxoid, adsorbed Allergy Mild Unknown Verified 05/20/20 16:42 mold Allergy Unknown ASTHMA Verified 05/20/20 16:42 ATTACK Home Medications Home Medications Medication Instructions Recorded Confirmed Type Breo Ellipta 1 inh INHALATION DAILY 07/05/18 05/20/20 History albuterol sulfate 2.5 mg INHALATION QID PRN 07/05/18 05/20/20 History gabapentin 300 mg PO BID PRN 07/05/18 05/20/20 History melatonin 10 mg PO HS PRN 07/05/18 05/20/20 History polyethylene glycol 3350 17 g PO DAILY PRN 07/05/18 05/20/20 History albuterol sulfate 90 mcg/actuation See Rx Instructions .ROUTE 07/15/19 05/20/20 Rx aerosol inhaler .COMPLEX #54 gram trazodone 100 mg tablet 200 mg PO HS #180 tab 08/23/19 05/20/20 Rx multivitamin-ferrous 1 tab PO DAILY 09/21/19 05/20/20 History fumarate-folic acid 18 mg-400 mcg tablet psyllium husk 0.52 gram capsule 2.6 gm PO DAILY PRN cap 09/21/19 05/20/20 History diclofenac sodium 1 % topical gel 2 gm TOP QID #100 gm 01/06/20 05/20/20 Rx famotidine 20 mg tablet 20 mg PO BID #180 tab 01/06/20 05/20/20 Rx fluticasone propionate 50 1 sprays INTNAS DAILY PRN #47.4 ml 01/06/20 05/20/20 Rx mcg/actuation nasal spray,suspension linaclotide 290 mcg capsule 290 mcg PO DAILY #90 cap 01/06/20 05/20/20 Rx naproxen 500 mg tablet 500 mg PO BID PRN #180 tab 01/06/20 05/20/20 Rx pantoprazole 40 mg tablet,delayed 40 mg PO BID #180 tab 01/06/20 05/20/20 Rx release ropinirole 1 mg tablet 1 mg PO DAILY #90 tab 01/06/20 05/20/20 Rx ondansetron 4 mg disintegrating 4 mg PO Q8H PRN #30 tab 02/17/20 05/20/20 Rx tablet cyclobenzaprine 10 mg tablet 10 mg PO TID PRN #90 tab 02/28/20 05/20/20 Rx montelukast 10 mg tablet 10 mg PO DAILY #30 tab 03/19/20 05/20/20 Rx hydrocodone 5 mg-acetaminophen 325 See Rx Instructions .ROUTE 05/02/20 05/20/20 Rx mg tablet .COMPLEX #60 tab lorazepam 1 mg tablet 0.5 mg PO TID PRN #20 tab 05/02/20 05/20/20 Rx citalopram [Celexa] 20 mg PO DAILY 05/20/20 05/20/20 History furosemide [Lasix] 40 mg PO DAILY 05/20/20 05/20/20 History losartan 100 mg PO HS 05/20/20 05/20/20 History 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) Bronchitis Chronic constipation Chronic respiratory failure with hypoxia Contusion of face (04/27/11) COPD (chronic obstructive pulmonary disease) Depression Foot contusion Gastroenteritis GERD (gastroesophageal reflux disease) History of ETOH abuse History of Guillain-Diamondhead syndrome History of pulmonary embolism HTN (hypertension) Interstitial lung disease Mood disorder Pulmonary HTN Restless leg syndrome Sepsis Symptomatic cholelithiasis Type II diabetes mellitus Surgical History History of laparoscopic cholecystectomy History of radiofrequency ablation procedure for cardiac arrhythmia History of tracheostomy Status post craniectomy Status post insertion of percutaneous endoscopic gastrostomy (PEG) tube Family History Other No significant family history Social History Smoking Status: Never smoker Second Hand Exposure: No; Hx Alcohol Use: Yes Alcohol type: wine Hx Substance Use: No Preferred Language: Kyrgyz Communication Ability: Effective Visual Impairment: No 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 Beliefs That Will Affect Care: None marital status: Single Current Living Situation: Alone Feels Safe at Home: Yes Safety Concerns: Feels Safe At This Time Review of Systems Constitutional: as per Subjective / HPI Respiratory: as per Subjective / HPI Cardiovascular: no chest pain Gastrointestinal: as per Subjective / HPI Physical Exam Constitutional: WD/WN, vitals as above Respiratory: normal respiratory effort Cardiovascular: Rate/Rhythm: regular rate and regular rhythm Gastrointestinal (Abdomen): Inspection/Auscultation: abdomen normal to inspection and normal bowel sounds; abdomen not distended Percussion/Palpation: abdomen soft; abdomen nontender Skin: no rashes, warm and dry Psychiatric: Orientation: alert and oriented x 3 Speech: + pressured speech Mood: + irritable mood pt somewhat hostile at times Results & Data ([facility]) Vital Signs (Past 12 Hours) Vital Signs Temp Pulse Resp BP Pulse Ox 05/25/20 07:13 36.9 C 74 16 101/66 93 Laboratory Results 05/25/20 05/25/20 Range/Units 07:03 07:03 WBC 6.38 (4.8-10.8) K/uL RBC 4.55 (4.2-5.4) M/uL Hgb 15.7 (12.0-16.0) g/dL Hct 44.0 (37-47) % MCV 96.7 (80-100) fL MCH 34.5 H (25-34) pg MCHC 35.7 (32-36) g/dL RDW Std Deviation 43.8 (36.4-46.3) fL RDW Coeff of Joyce 12.7 (11.5-14.5) % Plt Count 208 (130-400) K/uL MPV 11.0 H (7.4-10.4) fL Sodium 138 (136-145) mmol/L Potassium 4.3 (3.5-5.1) mmol/L Chloride 102 (98-107) mmol/L Carbon Dioxide 29 (21-32) mmol/L Anion Gap 7.0 (3-11) BUN 16 (7-18) mg/dl Creatinine 0.94 (0.6-1.2) mg/dl Est Cr Clr Drug Dosing 65.6 ml/min Est GFR ( Amer) 79.2 Est GFR (Non-Af Amer) 68.3 BUN/Creatinine Ratio 17.4 (10-20) Glucose 146 H (70-99) mg/dl Calcium 9.2 (8.5-10.1) mg/dl Magnesium 2.6 H (1.8-2.4) mg/dl Diagnostic Findings KUB 05/25/20: 1. Moderate fecal retention of the right hemicolon with moderately decreased colonic stool volume from yesterday's exam. 2. Nonobstructive bowel gas pattern. KUB 05/24/20: There is mild to moderate colonic fecal retention. This has modestly improved from yesterday. KUB 05/23/20: Moderate constipation.
[2020-05-25] MEDS ORDERED: LAVAGE SOLUTION 4000ML PO SCH (14:30)
[2020-05-25] MEDS ORDERED: SODIUM CHLORIDE 0.9% 1000ML 1,000 ML IV SCH (15:00)
[2020-05-25] MEDS: MELATONIN 3 MG TAB PO SCH (21:11)
[2020-05-25] MEDS: LORazepam 1 MG TAB PO PRN (21:12)
[2020-05-25] MEDS: TRAZODONE HCL 100 MG TAB PO SCH (21:13)
[2020-05-25] MEDS: MONTELUKAST SODIUM 10 MG TABLET PO SCH (21:13)
[2020-05-25] MEDS: ROPINIROLE HCL 1 MG TABLET PO SCH (21:14)
[2020-05-25] MEDS: LOSARTAN POTASSIUM 50 MG TAB PO SCH (21:15)
[2020-05-26] MEDS: MAGNESIUM CITRATE 296 ML/BTL PO SCH (08:39)
[2020-05-26] MEDS: FUROSEMIDE 40 MG TAB PO SCH (08:40)
[2020-05-26] MEDS: DOCUSATE SODIUM 100 MG CAP PO SCH ×2 (08:40→21:23)
[2020-05-26] MEDS: FEXOFENADINE HCL 180 MG TAB PO SCH (08:40)
[2020-05-26] MEDS: LINACLOTIDE PO SCH (08:40)
[2020-05-26] MEDS: POLYETHYLENE (MIRALAX) 17 GM PACK PO SCH ×2 (08:40→13:15)
[2020-05-26] MEDS: ENOXAPARIN INJ 40 MG/0.4 ML SYR SQ SCH (08:40)
[2020-05-26] MEDS: FAMOTIDINE 20 MG TAB PO SCH ×2 (08:40→21:27)
[2020-05-26] MEDS: CEROVITE ADV FORMULA TAB PO SCH (08:40)
[2020-05-26] MEDS: FLUTICASONE/VILANTEROL 100/25MCG 14 PUFFS/INHALER INH SCH (08:40)
[2020-05-26] MEDS: GABAPENTIN 300 MG CAP PO SCH ×2 (08:40→21:26)
[2020-05-26] MEDS: CITALOPRAM 20 MG TAB PO SCH (08:40)
[2020-05-26] MEDS: PANTOprazole 40 MG TAB PO SCH ×2 (08:41→21:27)
[2020-05-26] MEDS: PSYLLIUM 58.6% POWDER PACKET PO SCH (08:41)
--- NOTE | 2020-05-26 08:47 | Hospitalist Progress Note ---
Date of Service May 26, 2020 Assessment & Plan (1) Chronic constipation: Chronic issue but causing acute issues with regards to her esophageal dysphagia likely due to small hiatal hernia in combination with slowed GI transit (also utilizes opioids) * Continue Linzess. * Did have some stool production by KUB on 05/26 shows significant stool still present in her colon. We will escalate her GoLYTELY at this time * Reconsult GI regarding possible colonoscopy vs GES as previously discussed per patient request . Initially GI consulted for esophageal dysphagia. * --> EGD performed which showed medium amount of food residue in stomach * -- patient reports BM > Q7D outpatient --> would benefit from GES as above and will have patient set up appointment with Dr. Addis holman following discharge to get this addressed. * Continue will reorganize her cathartic agents to hopefully promote forward motility (2) Esophageal dysphagia: * Consulted GI for EGD given 40 pounds weight loss and uncontrolled asthma (?chronic aspirations) likely related to this with uncontrolled reflux despite pantoprazole and famotidine. * GI consulted s/p EGD on 05/21 which showed small hiatal hernia, diffuse moderate inflammation in the gastric antrum, medium amount of food residue in the stomach fungal smear negative, h.pylori stain with focal granular staining that does not resemble typical organisms but felt non-specific and not keeping with true H.pylori organisms. * Diet slippery foods, may need frequent small meals * Protonix 40g BID and Pepcid * Recommend gastric emptying study outpatient--> Could consider barium swallow if patient develops worsening difficulty with swallowing although has been tolerating diet without much difficulty today * Speech consulted -- rec pills in a carrier * Patient also with chronic constipation and has significant fecal retention seen on x ray, will have bowel prep in attempts to help function (3) Chest pain: Improved * felt secondary to GI source * Continue with PPI/Pepcid daily, IV protonix d/c'd (4) Anxiety: * and depression, with reported panic attacks * Lorazepam 1mg prn as that is what she has been taking outpatient * Psych consulted -- appreciate asssitance * Increased celexa to 30mg daily, to be continued at discharge and could be titrated up * Benefit from outpatient psychiatric care --> next scheduled appointment with Dr. Laguerre June 01, 11:00 by phone and doctor will be calling her directly. Previous appt May 18 missed. (5) GERD (gastroesophageal reflux disease): * Avoid alcohol. * Continue pantoprazole 40 mg p.o. twice daily, famotidine 20 mg p.o. twice daily (6) Post-nasal drip: * Per patient, improved now that she is sitting more upright in bed * Flonase 1 spray each nostril twice daily -- d/c'd * Started Yareli 60 mg p.o. twice daily --> reduced to once daily in the morning, continued (7) Cough: * Suspect secondary to GERD versus postnasal drip * This is resolved continues without cough (8) Asthma: * Breo Ellipta 1 inhalation daily. * Albuterol 2 puffs prn wheezing. (9) Chronic respiratory failure with hypoxia: * Currently on 2 L at home * Currently 93% on RA * Suspect patient likely with component of sleep apnea and would benefit from outpatient sleep study as she has been saturating fine at times off of oxygen --> she reported drops down to 50-70s with exertion at home and discussed that she follows with Fei Lima outpatient. She states she had seen a collegaue of his and did not particularly have a good interaction and that she would like to see Fei in follow-up after discharge (10) History of ETOH abuse: * Advised to stop all alcohol use as suspect this led to her recent hospitalization. * B12, folate wnl * B1 pending (11) Restless leg syndrome: * Continue ropinirole 1 mg p.o. at bedtime (12) HTN (hypertension): * Stop Sudafed. * Continue home medications losartan 100 mg p.o. at bedtime * Continue Lasix 40 mg p.o. daily (although suspect her recent hospitalization in [facility] was more asthma exacerbation from aspiration in setting of alcohol intoxication than CHF) -- Cr stable (13) Abnormal TSH: * TSH 0.273 November 2019 --> repeat TSH wnl at 0.635 (14) Ganglion cyst of dorsum of right wrist: * Cause of pain on back of right wrist. * Pt notes she had issues with it in the past, used a brace with resolution and stopped using the brace and now the pain is back * Discussed with patient for outpatient follow-up at discharge (15) Sprain of anterior talofibular ligament of right ankle: * Chronic repeated sprains with instability since she continues to fall over on this. * Falls risk * PT eval with rec to return home and f/u with ortho outpatient (16) Avascular necrosis of left humeral head: * Noted on prior CT chest. Recommend outpatient follow-up with PCP (17) Insomnia: * Melatonin 9mg changed to scheduled evening 05/23 with patient reporting that she actually was able to sleep last night -- continue (18) DVT prophylaxis: * SCDs * Lovenox SQ Admission and Anticipated Discharge Date Admission Date: May 21, 2020 Subjective Patient still with many somatic complaints only drank a small amount of her GoLYTELY KUB reviewed today on 05/26 still shows significant stool in her colon which is impacting her bowel transit time as she is known to have gastric dysmotility and also some reflux associated asthma exacerbations. We will escalate her GoLYTELY to attempt to have her clean her bowel out to improve oral motility Review of Systems Review of Systems: Mild distress and fatigue no headache, blurry or double vision no speech or swallowing issues no chest pain, pressure or palpitations no shortness of breath, cough or wheezes Persistent diffuse abdominal pain, without nausea or vomiting, has had stool production no dysuria, hematuria or frequency no focal joint pain or swelling no back pain, CVA tenderness or radicular pain no bruising, bleeding or rashes no focal signs of weakness or numbness or altered sensation Issues with anxiety Physical Exam Physical Exam: The patient appeared well nourished and normally developed. Vital signs as documented. Head exam is normocephalic atraumatic no scleral icterus Neck is without JVD, thyromegaly, or carotid bruits. Lungs are diminished at the bases no wheezes or respiratory distress Cardiac exam, Rhythm is regular.. No murmurs, rubs or gallops. Abdominal exam reveals normal to hyperactive bowel sounds, soft diffusely tender no rebound no guarding Extremities are nonedematous and both pedal pulses are normal. Neurologic exam is alert and oriented, no focal loss of strength or sensation Skin is without bruises or rashes Psychologically is without concerns for anxiety or depression. Results & Data Results & Data ([facility]) Vital Signs (Past 12 Hours) Vital Signs Temp Pulse Resp BP Pulse Ox 05/26/20 07:22 97.9 F 73 18 104/70 91 05/26/20 00:11 98.2 F 73 19 104/67 92 PG Care Time/CCT Total # of Minutes Spent Total Time Spent with Patient: Total time spent is greater than 50% in coordination of care (as documented) at patient's floor/unit and/or counseling patient: Coding Level of Care Code 96301 Subseq Hosp Care Lvl 3 Diagnoses Chronic constipation K59.09 Esophageal dysphagia R13.10 Chest pain R07.9 Anxiety F41.9 GERD (gastroesophageal reflux disease) K21.9 Post-nasal drip R09.82 Cough R05 Asthma J45.909 Chronic respiratory failure with hypoxia J96.11 History of ETOH abuse F10.11 Restless leg syndrome G25.81 HTN (hypertension) I10 Abnormal TSH R79.89 Ganglion cyst of dorsum of right wrist M67.431 Sprain of anterior talofibular ligament of right ankle S93.491A Avascular necrosis of left humeral head M87.022 Insomnia G47.00 DVT prophylaxis Z29.9
--- NOTE | 2020-05-26 10:08 | XRay Report ---
XR KUB/Abdomen 1 view CLINICAL HISTORY: Constipation COMPARISON STUDY: 05/25/2020 FINDINGS: There are surgical clips within the right upper quadrant consistent with a prior cholecyste ctomy. There is no pathologic bowel dilatation. There is scattered stool within the colon which is fe lt to be within the range of normal. IMPRESSION: Nonobstructive bowel gas pattern. ACT 112: Negative or not required by law. Electronically signed by: Gunnar Rey M.D. 05/26/2020 10:07 AM
[2020-05-26] MEDS: CYCLOBENZAPRINE HCL 10 MG TAB PO PRN (10:19)
[2020-05-26] MEDS: HYDROCODONE/ACETAMOPHEN 5/325MG TAB PO PRN ×2 (10:19→21:23)
[2020-05-26] MEDS: LAVAGE SOLUTION 4000ML PO SCH ×4 (17:13→22:37)
[2020-05-26] MEDS: LORazepam 1 MG TAB PO PRN (21:23)
[2020-05-26] MEDS: LOSARTAN POTASSIUM 50 MG TAB PO SCH (21:24)
[2020-05-26] MEDS: MONTELUKAST SODIUM 10 MG TABLET PO SCH (21:25)
[2020-05-26] MEDS: MELATONIN 3 MG TAB PO SCH (21:25)
[2020-05-26] MEDS: ROPINIROLE HCL 1 MG TABLET PO SCH (21:25)
[2020-05-26] MEDS: TRAZODONE HCL 100 MG TAB PO SCH (21:26)
[2020-05-27] MEDS: CYCLOBENZAPRINE HCL 10 MG TAB PO PRN ×2 (01:32→09:50)
[2020-05-27] MEDS: LAVAGE SOLUTION 4000ML PO SCH ×4 (06:04→11:27)
[2020-05-27 06:44] LABS: Creatinine Clr Calc Pharmacy 75.2 ml/min; Est GFR (African American) 93.4; Est GFR (Non-African American) 80.6
[2020-05-27] MEDS: FEXOFENADINE HCL 180 MG TAB PO SCH (08:43)
[2020-05-27] MEDS ORDERED: POLYETHYLENE (MIRALAX) 17 GM PACK PO SCH (09:00)
[2020-05-27] MEDS: FLUTICASONE/VILANTEROL 100/25MCG 14 PUFFS/INHALER INH SCH (09:46)
[2020-05-27] MEDS: ENOXAPARIN INJ 40 MG/0.4 ML SYR SQ SCH (09:46)
[2020-05-27] MEDS: FUROSEMIDE 40 MG TAB PO SCH (09:46)
[2020-05-27] MEDS: LINACLOTIDE PO SCH (09:46)
[2020-05-27] MEDS: CITALOPRAM 20 MG TAB PO SCH (09:46)
[2020-05-27] MEDS: PSYLLIUM 58.6% POWDER PACKET PO SCH (09:47)
[2020-05-27] MEDS: FAMOTIDINE 20 MG TAB PO SCH (09:47)
[2020-05-27] MEDS: PANTOprazole 40 MG TAB PO SCH (09:47)
[2020-05-27] MEDS: GABAPENTIN 300 MG CAP PO SCH (09:47)
[2020-05-27] MEDS: CEROVITE ADV FORMULA TAB PO SCH (09:47)
[2020-05-27] MEDS: HYDROCODONE/ACETAMOPHEN 5/325MG TAB PO PRN (09:50)
[2020-05-27] MEDS: DOCUSATE SODIUM 100 MG CAP PO SCH (09:53)
--- NOTE | 2020-05-27 15:08 | Discharge Summary ---
Date of Service May 27, 2020 Admission HPI Per Admitting Provider Pippa Schmitt is a 55-year-old female with complex medical history including H1N1 influenza requiring prolonged ICU care, Guillain [place] syndrome, and prior tracheostomy who presents to the ER with chest pain. She reports this chest pain is been ongoing for a number of weeks but acutely became much worse this morning. Pain is substernal. Work-up with severe chest pain this morning but since is it is been ongoing it was not until an aid came to her house and thought she did not look well and the patient agreed that she came to the ER. Pain slowly became worse throughout the day. Most severe on arrival at the ER 8/10, currently 2/10. No radiation. Not pleuritic, exertional, worse with food. Associated with shortness of breath but no nausea or diaphoresis. No palpitations, leg swelling, presyncope, syncope, claudication. She reports having a recent hospitalization at [facility] from May 08 - May 17 for CHF exacerbation. Discharge summary available which also noted asthma exacerbation which she was treated with steroids and azithromycin. No intubation or echocardiogram noted. Her BNP was low. Chest x-ray showed diffuse changes interpreted as edema. On admission while hypoxic she was apparently making statements such as " I am tired of living" which was interpreted as suicidal thoughts therefore she was transferred to inpatient psychiatry and started on citalopram. Pippa feels she made these comments in the setting of hypoxia and alcohol intoxication. She admits to drinking alcohol for her birthday celebrations prior to that admission. She has a history of alcohol abuse. She reports not drinking alcohol for 2 months prior to that. She was also hospitalized here in November for abdominal pain, nausea, vomiting, diagnosed with symptomatic cholelithiasis which improved after surgery. She feels her current pain is different to that back in November. On admission the patient is resting comfortably. Severity 2/10 pain. After eating she mentioned the potatoes felt like they got stuck and this is been a problem with solid foods feeling like they are getting stuck in her mid-lower chest. Principal Diagnosis Obstipation relieved with GoLYTELY Gastroparesis Chest pain secondary to gastroesophageal reflux Discharge Exam The patient appeared well Vital signs as documented. Lungs are clear to auscultation and appear unlabored Cardiac exam, Rhythm is regular.. No murmurs, rubs or gallops. Abdominal exam reveals normal bowel sounds, soft non tender, no masses Extremities are nonedematous and both pedal pulses are normal. Neurologic exam is alert and oriented, no focal loss of strength or sensation Skin is without bruises or rashes Psychologically is without concerns for anxiety or depression. Discharge Data Allergies Allergy/AdvReac Type Severity Reaction Status Date / Time house dust Allergy Intermediate Difficulty Verified 05/20/20 16:42 Breathing red dye Allergy Intermediate RED FOOD Verified 05/20/20 16:42 DYE CAUSES SEVERE ASTHMA ATTACK yellow dye Allergy Intermediate YELLOW Verified 05/20/20 16:42 FOOD DYE CAUSES SEVERE ASTHMA ATTACK diphtheria toxoid,fluid Allergy Mild Unknown Verified 05/20/20 16:42 tetanus toxoid, adsorbed Allergy Mild Unknown Verified 05/20/20 16:42 mold Allergy Unknown ASTHMA Verified 05/20/20 16:42 ATTACK Consultations 05/20/20 17:29 ED Decision to Admit Stat 05/20/20 19:59 Consult Health Information Management Routine 05/21/20 01:39 Consult Gastroenterology Routine 05/21/20 01:47 Consult Health Information Management Routine 05/21/20 11:48 Consult Psychiatry Routine 05/25/20 14:10 Consult Gastroenterology Routine Procedures Performed Operation Date: 05/21/20 12:00 Actual Procedures p Esophagogastroduodenoscopy in Operating Room(Not Applicable) - Brooks Holt MD Hospital Course (1) Chronic constipation: Chronic issue but causing acute issues with regards to her esophageal dysphagia likely due to small hiatal hernia in combination with slowed GI transit (also utilizes opioids) * improved after bowel movements secondary to administration of GoLYTELY * Reconsult GI regarding possible colonoscopy vs GES as previously discussed per patient request . Initially GI consulted for esophageal dysphagia. * --> EGD performed which showed medium amount of food residue in stomach * -- appointment with Dr. Addis holman following discharge to consider gastric emptying study * GI medicine will also recommend outpt colonoscopy (2) Esophageal dysphagia: * Consulted GI for EGD given 40 pounds weight loss and uncontrolled asthma (?chronic aspirations) likely related to this with uncontrolled reflux despite pantoprazole and famotidine. * GI consulted s/p EGD on 05/21 which showed small hiatal hernia, diffuse moderate inflammation in the gastric antrum, medium amount of food residue in the stomach fungal smear negative, h.pylori stain with focal granular staining that does not resemble typical organisms but felt non-specific and not keeping with true H.pylori organisms. * Diet slippery foods, may need frequent small meals * Protonix 40g BID and Pepcid * Recommend gastric emptying study outpatient--> Could consider barium swallow if patient develops worsening difficulty with swallowing although has been tolerating diet without much difficulty today * Speech consulted -- rec pills in a carrier * Patient also with chronic constipation and has significant fecal retention seen on x ray, miralax, fiber and senna daily (3) Chest pain: Improved * felt secondary to GI source * Continue with acid suppression (4) Anxiety: * and depression, with reported panic attacks * Lorazepam 1mg prn as that is what she has been taking outpatient * Psych consulted -- appreciate asssitance * Increased celexa to 30mg daily, to be continued at discharge and could be titrated up * Benefit from outpatient psychiatric care --> next scheduled appointment with Dr. Laguerre June 01, 11:00 by phone and doctor will be calling her directly. Previous appt May 18 missed. (5) GERD (gastroesophageal reflux disease): * Avoid alcohol. * Continue acid supressiony (6) Post-nasal drip: * Per patient, improved now that she is sitting more upright in bed * Flonase 1 spray each nostril twice daily -- d/c'd * Started Yareli 60 mg p.o. twice daily --> reduced to once daily in the morning, continued (7) Cough: * Suspect secondary to GERD versus postnasal drip * This is resolved continues without cough (8) Asthma: * Breo Ellipta 1 inhalation daily. * Albuterol 2 puffs prn wheezing. (9) Chronic respiratory failure with hypoxia: * Currently on 2 L at home * Currently 93% on RA * Suspect patient likely with component of sleep apnea and would benefit from outpatient sleep study as she has been saturating fine at times off of oxygen --> she reported drops down to 50-70s with exertion at home and discussed that she follows with Fei Lima outpatient. She states she had seen a collegaue of his and did not particularly have a good interaction and that she would like to see Fei in follow-up after discharge (10) History of ETOH abuse: * Advised to stop all alcohol use as suspect this led to her recent hospitalization. * B12, folate wnl * B1 pending (11) Restless leg syndrome: * Continue ropinirole 1 mg p.o. at bedtime (12) HTN (hypertension): * Stop Sudafed. * Continue home medications losartan 100 mg p.o. at bedtime * Continue Lasix 40 mg p.o. daily (although suspect her recent hospitalization in [facility] was more asthma exacerbation from aspiration in setting of alcohol intoxication than CHF) -- Cr stable (13) Abnormal TSH: * TSH 0.273 November 2019 --> repeat TSH wnl at 0.635 (14) Ganglion cyst of dorsum of right wrist: * Cause of pain on back of right wrist. * Pt notes she had issues with it in the past, used a brace with resolution and stopped using the brace and now the pain is back * Discussed with patient for outpatient follow-up at discharge (15) Sprain of anterior talofibular ligament of right ankle: * Chronic repeated sprains with instability since she continues to fall over on this. * Falls risk * PT eval with rec to return home and f/u with ortho outpatient (16) Avascular necrosis of left humeral head: * Noted on prior CT chest. Recommend outpatient follow-up with PCP (17) Insomnia: * Melatonin Total Time Total Time Spent Total Time Spent (In Minutes): It required greater than 30 minutes to prepare this patient for discharge Discharge Plan Discharge Items Patient Disposition: Home - Self-Care Reason For Visit: CHEST PAIN RULE OUT CT Discharge Diagnosis: obstipation gastric emptying delayed Activity: Resume your previous activity Non-emergency contact: Primary Care Provider Call non-emergency contact if: you have any medication questions Follow-up/Referrals: Uvaldo Mancini MD [Primary Care Provider] - Brooks Holt MD [Physician] - Diet: Regular Addtl Attending Provider Instructions: You should have a fiber supplement every day in your diet. Continue to have probiotics. Takes stool encouraging agents to have the least one bowel movement every day. If you do not have a bowel movement on any particular day increase the doses of your stool encouraging medications the following day. Please follow-up with your primary care doctor to set up an appointment with gastroenterology for outpatient colonoscopy Pending Studies at Discharge: No Stand-Alone Forms: My [employer], Smoking Cessation Medications and DC Order Prescriptions: New senna 8.6 mg capsule 17.2 mg PO DAILY Qty: 60 RF: 0 polyethylene glycol 3350 17 gram/dose powder 17 g PO DAILY Qty: 510 RF: 0 psyllium husk [Fiber (psyllium husk)] 0.52 gram capsule 0.52 g PO DAILY Qty: 30 RF: 0 Continued albuterol sulfate [Ventolin HFA] 90 mcg/actuation HFA aerosol inhaler See Rx Instructions .ROUTE .COMPLEX Qty: 54 RF: 2 trazodone 100 mg tablet 200 mg PO HS Qty: 180 RF: 3 Linzess 290 mcg capsule 290 mcg PO DAILY Qty: 90 RF: 1 ropinirole 1 mg tablet 1 mg PO DAILY Qty: 90 RF: 1 pantoprazole 40 mg tablet,delayed release (DR/EC) 40 mg PO BID Qty: 180 RF: 3 fluticasone propionate [Flonase Allergy Relief] 50 mcg/actuation spray,suspension 1 sprays INTNAS DAILY PRN (Reason: Nasal Congestion) Qty: 47.4 RF: 3 diclofenac sodium [Voltaren] 1 % gel 2 gm TOP QID Qty: 100 RF: 3 famotidine 20 mg tablet 20 mg PO BID Qty: 180 RF: 1 ondansetron 4 mg tablet,disintegrating 4 mg PO Q8H PRN (Reason: nausea and vomiting) Qty: 30 RF: 0 montelukast 10 mg tablet 10 mg PO DAILY Qty: 30 RF: 5 Centrum Complete 18-400 mg-mcg tablet 1 tab PO DAILY RF: 0 albuterol sulfate 2.5 mg /3 mL (0.083 %) Solution For Nebulization 2.5 mg INHALATION QID PRN (Reason: Shortness Of Breath) RF: 0 gabapentin 300 mg capsule 300 mg PO BID PRN (Reason: Pain) RF: 0 melatonin 10 mg Tablet 10 mg PO HS PRN (Reason: Sleep) RF: 0 Breo Ellipta 100-25 mcg/dose Blister With Device 1 inh INHALATION DAILY RF: 0 furosemide [Lasix] 40 mg Tablet 40 mg PO DAILY RF: 0 citalopram [Celexa] 20 mg Tablet 20 mg PO DAILY RF: 0 losartan 100 mg tablet 100 mg PO HS RF: 0 Discontinued naproxen 500 mg tablet 500 mg PO BID PRN (Reason: pain) Qty: 180 RF: 3 cyclobenzaprine 10 mg tablet 10 mg PO TID PRN (Reason: muscle spasm) Qty: 90 RF: 1 hydrocodone-acetaminophen 5-325 mg tablet See Rx Instructions .ROUTE .COMPLEX Qty: 60 RF: 0 lorazepam 1 mg tablet 0.5 mg PO TID PRN (Reason: anxiety) Qty: 20 RF: 0 Discharge Orders: Discharge Order (Routine); Ordered 05/27/20 Ordered By: Jonathan Daniels/Other Patient Handouts: A1C Admission Data Admit Date/Time: 05/21/20 16:14 Attending Provider: Jonathan Salazar Admit Provider: Daniel Garcia Primary Care Provider: Uvaldo Mancini Other Providers: Brooks Holt ; Kandis Parham ; Daniel Garcia ; Erin Potts Other Interventions: PSY Interdisciplinary Discharge Planning Last Done: 05/22/20 12:11 Coding Level of Care Code D/C Day Management >30 mins Diagnoses Chronic constipation K59.09 Esophageal dysphagia R13.10 Chest pain R07.9 Anxiety F41.9 GERD (gastroesophageal reflux disease) K21.9 Post-nasal drip R09.82 Cough R05 Asthma J45.909 Chronic respiratory failure with hypoxia J96.11 History of ETOH abuse F10.11 Restless leg syndrome G25.81 HTN (hypertension) I10 Abnormal TSH R79.89 Ganglion cyst of dorsum of right wrist M67.431 Sprain of anterior talofibular ligament of right ankle S93.491A Avascular necrosis of left humeral head M87.022 Insomnia G47.00
== END 2020-05-27 17:56 | disposition home or self-care (01) | DRG 392 ==
LOC: ED 15:01 → 2N 15:01 → SUATTDRO 18:34 → 2N 19:33

== ENCOUNTER 2021-04-24 00:20 | Inpatient (IN) ==
[2021-04-24] MEDS ORDERED: ONDANSETRON INJ 2 MG/ML 2 ML VIAL IV STA (01:18)
[2021-04-24] MEDS ORDERED: SODIUM CHLORIDE 0.9% 1000ML 1,000 ML IV STA (01:18)
[2021-04-24 01:31] LABS: Basophils # (auto) 0.02 K/uL (0-0.2); Basophils % (auto) 0.2 %; Eosinophils # (auto) 0.16 K/uL (0-0.5); Eosinophils % (auto) 1.9 %; Hematocrit (blood only) 41.4 % (37-47); Hemoglobin 14.9 g/dL (12.0-16.0); Immature Granulocytes # (auto) 0.02 K/uL (0.00-0.02); Immature Granulocytes % (auto) 0.2 %; Lymphocytes # (auto) 2.46 K/uL (1.2-3.4); Lymphocytes % (auto) 28.9 %; Mean Corpuscular Hemoglobin 32.7 pg (25-34); Monocytes # (auto) 0.52 K/uL (0.11-0.59); Monocytes % (auto) 6.1 %; Neutrophils # (auto) 5.32 K/uL (1.4-6.5); Neutrophils % (auto) 62.7 %; Platelet Count 199 K/uL (130-400); RDW Coefficient of Variation 12.9 % (11.5-14.5); RDW Standard Deviation 42.8 fL (36.4-46.3); Red Blood Count 4.55 M/uL (4.2-5.4)
[2021-04-24 01:45] LABS: Albumin Globulin Ratio 1.1 (0.9-2); Albumin Level 3.6 gm/dl (3.4-5.0); BUN Creatinine Ratio 23.3 (10-20); Bilirubin,Total 0.7 mg/dl (0.2-1); Calcium 9.1 mg/dl (8.5-10.1); Est GFR (African American) 124.7 ml/min; Est GFR (Non-African American) 107.6 ml/min; Globulin 3.4 gm/dl (2.5-4.0); Potassium 3.5 mmol/L (3.5-5.1)
[2021-04-24 02:46] LABS: Appearance Urine Clear (Clear); Bacteria Urine Automated Negative (Negative); Bilirubin Urine Negative (Negative); Blood Urine Negative (Negative); Cast Urine Automated 0 /lpf (0-5); Color Urine Yellow; Glucose Urine UA Negative (Negative); Ketones Urine Trace (Negative); Leukocyte Esterase Urine Trace (Negative); Nitrite Urine Negative (Negative); Protein Urine Negative (Negative); RBC Urine Automated 0-4 /hpf (0-4); Specific Gravity Urine 1.007 (1.000-1.030); Urobilinogen Urine Negative (Negative)
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
[2021-04-24] MEDS ORDERED: OPTIRAY 320 100ml IV ONE (04:03)
[2021-04-24] MEDS ORDERED: SODIUM CHLORIDE 0.9% 1000ML 1,000 ML IV ONE (05:15)
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
--- NOTE | 2021-04-24 08:01 | CT Scan Report ---
ABDOMEN AND PELVIS CT WITH IV AND ORAL CONTRAST CT DOSE: 641.42 mGy.cm HISTORY: Acute right upper quadrant abdominal pain with constipation RUQ pain, constipation, hx. obs truction TECHNIQUE: Multiaxial CT images of the abdomen and pelvis were performed following the IV administrat ion of 93 cc of Optiray and oral contrast. A dose lowering technique was utilized adhering to the pr inciples of LIZ. COMPARISON STUDY: 10/11/2019 FINDINGS: The imaged inferior cardiac chambers are unremarkable. Bibasilar groundglass densities with subpleura l reticulation suggests fibrosis. 4 mm solid nodule of the posterior basal segment right lower lobe o n image 9 of series 3 is unchanged from comparison and is of low clinical suspicion. The spleen, liver and adrenal glands are unremarkable. Cholecystectomy. Patency of the hepatic and po rtal veins. Mild to moderate generalized pancreatic atrophy. Mild interstitial and peripancreatic janette ma involves the uncinate process and head of the pancreas. Mild associated wall thickening of the pro ximal duodenum with adjacent inflammatory stranding. No pancreatic ductal dilation or pancreatic mass identified. No biliary ductal dilation. No hydronephrosis. Unremarkable kidneys. The urinary bladder is partially distended. Unremarkable [place] and left adnexum. 1.6 cm cystic structure of the right adnexum is indeterminate. Mild atheroscler osis of the aorta. No aneurysm. No adenopathy. There is no bowel obstruction. Colonic diverticulosis without CT evidence of acute diverticulitis. There is a mild wall thickening involving the ascending and transverse colon is likely secondary to partial distention. Nonvisualization of the appendix. Mil d fecal retention. Unremarkable soft tissues. No acute fracture. IMPRESSION: 1. Mild interstitial and peripancreatic edema involving the head and uncinate process of the pancreas is suggestive of mild interstitial edematous pancreatitis. Correlate with serum lipase level. 2. Mild wall thickening of the proximal duodenum is likely reactive. 3. Colonic diverticulosis. 4. Additional findings as above. ACT 112: Negative or not required by law. The above report was generated using voice recognition software. It may contain grammatical, syntax o r spelling errors. Electronically signed by: Johan Fountain M.D. 04/24/2021 7:59 AM
[2021-04-24] MEDS ORDERED: bisacodyL 10 MG SUPP PR PRN (08:20)
[2021-04-24] MEDS ORDERED: GLUCAGON FOR INJ 1 MG VIAL SQ PRN (08:20)
[2021-04-24] MEDS ORDERED: DEXTROSE 50% 50 ML SYRINGE IV PRN (08:20)
[2021-04-24] MEDS ORDERED: SOD PHOSPHATE/SOD BIPHOSPHATE ENEMA 132 ML BTL PR PRN (08:20)
[2021-04-24] MEDS ORDERED: GLUCOSE 10 TABS/TUBE PO PRN (08:20)
[2021-04-24] MEDS ORDERED: ONDANSETRON INJ 2 MG/ML 2 ML VIAL IV PRN (08:20)
[2021-04-24] MEDS ORDERED: CARBOHYDRATES FOR HYPOGLYCEMIA PO PRN (08:20)
[2021-04-24] MEDS ORDERED: GLUCOSE 40% GEL 15 GM TUBE PO PRN (08:20)
[2021-04-24] MEDS ORDERED: MAGNESIUM CITRATE 296 ML/BTL PO SCH (08:30)
[2021-04-24] MEDS ORDERED: NON-FORMULARY MEDICATION (Fluticasone-Umeclidin-Vilanter [Trelegy Ellipta] 100-62.5-25 mcg INH SCH (09:15)
[2021-04-24] MEDS: LACTATED RINGER'S 1,000 ML IV SCH ×3 (09:22→21:35)
[2021-04-24] MEDS: INSULIN ASPART 100 UNITS/ML 3 ML PEN SC SCH ×4 (09:25→20:21)
[2021-04-24] MEDS: FLUTICASONE FUROATE 100MCG 14 PUFFS/INHALER INH SCH ×2 (12:36→19:23)
[2021-04-24] MEDS: UMECLIDINIUM/VILANTEROL 62.5/25MCG 7 PUFFS/INHALER INH SCH ×2 (12:36→19:23)
--- NOTE | 2021-04-24 13:59 | Electrocardiogram Report ---
Test Reason : Blood Pressure : / mmHG Vent. Rate : 124 BPM Atrial Rate : 122 BPM P-R Int : 150 ms QRS Dur : 070 ms QT Int : 306 ms P-R-T Axes : 042 -40 028 degrees QTc Int : 439 ms sinus tachycardia Left axis deviation Possible Lateral infarct , age undetermined Poor R wave progression, consider anterior CA vs. lead placement vs. LVH possible Inferior infarct , age undetermined Abnormal ECG Confirmed by Tyrell Ayon ([id number]) on 04/24/2021 1:59:03 PM Referred By: REFERRED SELF Confirmed By:Lux Ayon
[2021-04-24] MEDS: HYDROmorphone INJ 0.5 MG/0.5 ML SYR IV PRN ×2 (17:06→20:52)
--- NOTE | 2021-04-24 19:08 | Magnetic Resonance Report ---
MRCP CLINICAL HISTORY: Pancreatitis. COMPARISON STUDY: Abdominal CT dated 04/24/2021. TECHNIQUE: Abdominal MRCP is performed utilizing various T2-weighted sequences in the axial and coron al planes. IV contrast was not administered for this examination. 3-D reformats are created and asses sed. FINDINGS: The gallbladder is surgically absent. There is no intra- or extrahepatic biliary ductal dilatation. T he common bile duct is normal in caliber, measuring up to 5 mm in diameter. There are no intraluminal filling defects to suggest choledocholithiasis. The pancreatic duct is diminutive and not well asses sed. Question pancreas divisum. The unenhanced liver, spleen, adrenal glands, and kidneys are grossly unremarkable. There is moderate glandular atrophy of the pancreas. Inflammatory change and fluid is present around the pancreatic he ad and duodenum consistent with the reported history of acute pancreatitis. No abdominal lymphadenopa thy is identified. The abdominal aorta is normal in caliber. There is no pleural effusion. IMPRESSION: 1. Status post cholecystectomy. 2. There is no intra- or extrahepatic biliary ductal dilatation, and no evidence of choledocholithias is. 3. Question pancreas divisum. 4. Findings are consistent with acute pancreatitis. Dictated: 04/24/2021 6:13 PM Transcribed: 04/24/2021 6:32 PM Swati [id number] [email or web address] Electronically signed by: Johan Rogers M.D. 04/24/2021 7:07 PM
[2021-04-24] MEDS ORDERED: ALBUTEROL 0.083% NEBU SOLN 3 ML VIAL NEB STA (19:35)
--- NOTE | 2021-04-24 19:53 | Communication Note ---
Date of Service: April 24, 2021 Was paged due to patient having increased dry cough and SOB. Patient here for pancreatitis, on mIVFs, and has h/o COPD with 2L NC at home. Patient takes daily inhaler as well as PRN Albuterol almost daily at home. Patient was sitting up in bed and in mild respiratory distress, satting 92-94% on 2L NC, and with frequent dry cough during respiratory exam. No wheezes on exam but mildly decreased air entry bilaterally - likely chronic. No LE edema. Suspect SOB due to chronic COPD - unlikely to be exacerbation, as the patient regular takes Albuterol at home but was not given any since admission. - ordered Albuterol nebs x1 now as well as PRN for SOB - patient's nurse will contact me if patient does not improve after nebs x1; will consider CXR, BiPAP, +/- steroids at that point in time
[2021-04-24] MEDS: FLUCONAZOLE 100 MG TAB PO SCH (20:21)
[2021-04-24] MEDS: DICLOFENAC SOD 1% GEL 100 GM TUBE EXT PRN (20:54)
[2021-04-24] MEDS ORDERED: diphenhydrAMINE Capsule 25 MG CAP PO PRN (21:08)
[2021-04-24] MEDS: DOCUSATE SODIUM 100 MG CAP PO PRN (21:39)
[2021-04-24] MEDS: CYCLOBENZAPRINE HCL 10 MG TAB PO PRN (21:39)
--- NOTE | 2021-04-24 22:18 | Hospitalist Progress Note ---
Date of Service April 24, 2021 Assessment & Plan (1) Acute pancreatitis: Plan: Clinical history, exam, elevated lipase (although only mildly so), and CT findings all c/w acute pancreatitis. today she has mild rise in transaminases. she is s/p lap dilia. could she have had a passed gallstone? does she have a retained CBD stone? mildly high triglycerides in January of 2021 but not high enough to cause pancreatitis. given the severity of abd pain still would advise going back to NPO status except for ice chips. MRCP. copious LR hydration. pain meds. antiemetics. (2) Constipation: Plan: Last BM 8 days ago. Patient states that she has longstanding history of constipation - typically only has 3-4 BMs per month. Continue complex bowel regimen including Colace, dulcolax, lactulose, amitiza. follows with GI in [place]. (3) Diabetes mellitus type II, uncontrolled: Plan: Chronic. Last A1C=8.4 on 12/25/20. Patient reports not taking her medications for several days A1c pending. Novolog Sliding. Probably will need basal. (4) Dyslipidemia: Plan: Continue Atorvastatin 40mg po daily cautiously in light of mild rise in ast/alt (5) Restless leg syndrome: Plan: Chronic -Continue Ropinirole 1mg po qPM consider Fe studies while here (6) History of Guillain-Wilton syndrome: Plan: Patient with remote history of Guillain-Wilton syndrome following infection H1N1 resulting in a prolonged and complicated illness and hospitalization No Covid vaccination due to this history (7) Hypertension: Plan: Chronic Continue losartan & amlodipine (8) COPD (chronic obstructive pulmonary disease): Plan: Chronic. Patient on home O2 - 2L (will need to inquire if continuous or PRN). Cont home meds (9) Hiatal hernia: Plan: continue Pepcid continue Protonix add carafate prn? Admission and Anticipated Discharge Date Admission Date: April 24, 2021 Subjective patient c/o ongoing pain - not as severe as yesterday - but ongoing. RUQ and high epigastric in location. no further vomiting. mild nausea - did have clears this am; tolerated it apparently but still w/ pain. she mentions a host of medical issues during the visit - long-standing hiatal hernia, refractory GERD symptoms, chronic constipation, etc. also mentioned this am a pink-tinged discharge when she wipes after using the toilet. she follows with Dr Mancini for PCP, and GI in [place]. patient multiple times states she has not drank etoh in at least 1 year. Review of Systems Review of Systems: gen - no fevers; no chills CV - no substernal chest pain pulm - cough (chronic); dyspnea (chronic) GI - see HPI - mild dysuria Physical Exam Physical Exam: gen - NAD, nontoxic appearing, restricted affect mouth - MMM heart - tachy, s1 s2 lungs - CTA b/l, mild rales bases abd - very tender RUQ and high epigastric region to palpation; BS+; no HSM; no peritoneal signs ext - no edema Results & Data Results & Data ([facility]) Vital Signs (Past 12 Hours) Vital Signs Temp Resp BP Pulse Ox 04/24/21 20:08 24 93 04/24/21 15:03 36.7 C 16 134/78 92 Laboratory Results Laboratory Results - last 24 hr 04/24/21 04/24/21 04/24/21 00:40 00:40 01:30 WBC 8.50 RBC 4.55 Hgb 14.9 Hct 41.4 MCV 91.0 MCH 32.7 MCHC 36.0 RDW Std Deviation 42.8 RDW Coeff of Joyce 12.9 Plt Count 199 MPV 11.0 H Immature Gran % (Auto) 0.2 Neut % (Auto) 62.7 Lymph % (Auto) 28.9 [place] % (Auto) 6.1 Eos % (Auto) 1.9 Baso % (Auto) 0.2 Neut # (Auto) 5.32 Lymph # (Auto) 2.46 [place] # (Auto) 0.52 Eos # (Auto) 0.16 Baso # (Auto) 0.02 Immature Gran # (Auto) 0.02 Sodium 139 Potassium 3.5 Chloride 106 Carbon Dioxide 21 Anion Gap 13.0 H BUN 12 Creatinine 0.52 L Est Cr Clr Drug Dosing 119.0 Est GFR ( Amer) 124.7 Est GFR (Non-Af Amer) 107.6 BUN/Creatinine Ratio 23.3 H Glucose 125 H POC Glucose Lactate Calcium 9.1 Total Bilirubin 0.7 AST 57 H ALT 131 H Alkaline Phosphatase 72 Total Protein 7.0 Albumin 3.6 Globulin 3.4 Albumin/Globulin Ratio 1.1 Lipase 459 H Specimen Hemolysis Urine Color Urine Appearance Urine pH Ur Specific [place] Urine Protein Urine Glucose (UA) Urine Ketones Urine Blood Urine Nitrite Urine Bilirubin Urine Urobilinogen Ur Leukocyte Esterase Urine WBC (Auto) Urine RBC (Auto) U Hyaline Cast (Auto) U Epithel Cells (Auto) Urine Bacteria (Auto) POC Ur Test COVID-19 Eval Order Covid19 at [facility] SARS-CoV-2 (PCR) 04/24/21 04/24/21 04/24/21 01:30 02:09 02:33 WBC RBC Hgb Hct MCV MCH MCHC RDW Std Deviation RDW Coeff of Joyce Plt Count MPV Immature Gran % (Auto) Neut % (Auto) Lymph % (Auto) [place] % (Auto) Eos % (Auto) Baso % (Auto) Neut # (Auto) Lymph # (Auto) [place] # (Auto) Eos # (Auto) Baso # (Auto) Immature Gran # (Auto) Sodium Potassium Chloride Carbon Dioxide Anion Gap BUN Creatinine Est Cr Clr Drug Dosing Est GFR ( Amer) Est GFR (Non-Af Amer) BUN/Creatinine Ratio Glucose POC Glucose Lactate 2.9 H* Calcium Total Bilirubin AST ALT Alkaline Phosphatase Total Protein Albumin Globulin Albumin/Globulin Ratio Lipase Specimen Hemolysis Urine Color Yellow Urine Appearance Clear Urine pH 6.0 Ur Specific [place] 1.007 Urine Protein Negative Urine Glucose (UA) Negative Urine Ketones Trace H Urine Blood Negative Urine Nitrite Negative Urine Bilirubin Negative Urine Urobilinogen Negative Ur Leukocyte Esterase Trace H Urine WBC (Auto) 1-5 Urine RBC (Auto) 0-4 U Hyaline Cast (Auto) 0 U Epithel Cells (Auto) 5-10 H Urine Bacteria (Auto) Negative POC Ur Test COVID-19 Eval Order SARS-CoV-2 (PCR) NEGATIVE 04/24/21 04/24/21 04/24/21 04:45 08:40 10:01 WBC RBC Hgb Hct MCV MCH MCHC RDW Std Deviation RDW Coeff of Joyce Plt Count MPV Immature Gran % (Auto) Neut % (Auto) Lymph % (Auto) [place] % (Auto) Eos % (Auto) Baso % (Auto) Neut # (Auto) Lymph # (Auto) [place] # (Auto) Eos # (Auto) Baso # (Auto) Immature Gran # (Auto) Sodium Potassium Chloride Carbon Dioxide Anion Gap BUN Creatinine Est Cr Clr Drug Dosing Est GFR ( Amer) Est GFR (Non-Af Amer) BUN/Creatinine Ratio Glucose POC Glucose 135 H Lactate 3.1 H* 0.9 Calcium Total Bilirubin AST ALT Alkaline Phosphatase Total Protein Albumin Globulin Albumin/Globulin Ratio Lipase Specimen Hemolysis Urine Color Urine Appearance Urine pH Ur Specific [place] Urine Protein Urine Glucose (UA) Urine Ketones Urine Blood Urine Nitrite Urine Bilirubin Urine Urobilinogen Ur Leukocyte Esterase Urine WBC (Auto) Urine RBC (Auto) U Hyaline Cast (Auto) U Epithel Cells (Auto) Urine Bacteria (Auto) POC Ur Test COVID-19 Eval Order SARS-CoV-2 (PCR) 04/24/21 04/24/21 20:09 Unknown WBC RBC Hgb Hct MCV MCH MCHC RDW Std Deviation RDW Coeff of Joyce Plt Count MPV Immature Gran % (Auto) Neut % (Auto) Lymph % (Auto) [place] % (Auto) Eos % (Auto) Baso % (Auto) Neut # (Auto) Lymph # (Auto) [place] # (Auto) Eos # (Auto) Baso # (Auto) Immature Gran # (Auto) Sodium Potassium Chloride Carbon Dioxide Anion Gap BUN Creatinine Est Cr Clr Drug Dosing Est GFR ( Amer) Est GFR (Non-Af Amer) BUN/Creatinine Ratio Glucose POC Glucose 164 H Lactate Calcium Total Bilirubin AST ALT Alkaline Phosphatase Total Protein Albumin Globulin Albumin/Globulin Ratio Lipase Specimen Hemolysis Urine Color Urine Appearance Urine pH Ur Specific [place] Urine Protein Urine Glucose (UA) Urine Ketones Urine Blood Urine Nitrite Urine Bilirubin Urine Urobilinogen Ur Leukocyte Esterase Urine WBC (Auto) Urine RBC (Auto) U Hyaline Cast (Auto) U Epithel Cells (Auto) Urine Bacteria (Auto) POC Ur Test NEG COVID-19 Eval Order SARS-CoV-2 (PCR) PG Care Time/CCT Total # of Minutes Spent Total Time Spent with Patient: Total time spent is greater than 50% in coordination of care (as documented) at patient's floor/unit and/or counseling patient: Coding Level of Care Code 17380 Subseq Hosp Care Lvl 2 Diagnoses Acute pancreatitis K85.90 Acute pancreatitis complication: unspecified Pancreatitis type: unspecified pancreatitis type Constipation K59.00 Diabetes mellitus type II, uncontrolled E11.65 Dyslipidemia E78.5 Restless leg syndrome G25.81 History of Guillain-Wilton syndrome Z86.69 Hypertension I10 COPD (chronic obstructive pulmonary disease) J44.9 Hiatal hernia K44.9 (1) Acute pancreatitis Acute pancreatitis complication: unspecified Pancreatitis type: unspecified pancreatitis type Qualified Code(s): K85.90 - Acute pancreatitis without necrosis or infection, unspecified
[2021-04-24] MEDS: PANTOprazole 40 MG TAB PO SCH (22:23)
[2021-04-24] MEDS: GABAPENTIN 300 MG CAP PO SCH (22:24)
[2021-04-24] MEDS: traZODone HCL 100 MG TAB PO SCH (22:24)
[2021-04-24] MEDS: rOPINIRole HCL 1 MG TABLET PO SCH (22:24)
[2021-04-24] MEDS: LOSARTAN POTASSIUM 50 MG TAB PO SCH (22:24)
[2021-04-24] MEDS: FAMOTIDINE 20 MG TAB PO SCH (22:25)
[2021-04-25] MEDS: HYDROmorphone INJ 0.5 MG/0.5 ML SYR IV PRN ×3 (01:43→20:39)
[2021-04-25] MEDS: ALBUTEROL 0.083% NEBU SOLN 3 ML VIAL NEB PRN ×2 (04:16→23:00)
[2021-04-25] MEDS: ALBUT/IPRATROP 3MG/0.5MG NEB 3 ML VIAL INH PRN (07:51)
[2021-04-25] MEDS: FLUCONAZOLE 100 MG TAB PO SCH (08:15)
[2021-04-25] MEDS: ATORVASTATIN 40 MG TAB PO SCH (08:15)
[2021-04-25] MEDS: FAMOTIDINE 20 MG TAB PO SCH ×2 (08:16→20:40)
[2021-04-25] MEDS: amLODIPine BESYLATE 5 MG TAB PO SCH (08:16)
[2021-04-25] MEDS: PANTOprazole 40 MG TAB PO SCH ×2 (08:16→20:41)
[2021-04-25] MEDS: LUBIPROSTONE 8 MCG CAP PO SCH ×2 (08:16→20:41)
[2021-04-25] MEDS: GABAPENTIN 300 MG CAP PO SCH ×2 (08:16→20:41)
[2021-04-25] MEDS: INSULIN ASPART 100 UNITS/ML 3 ML PEN SC SCH ×4 (09:02→20:42)
[2021-04-25 09:12] LABS: Basophils # (auto) 0.02 K/uL (0-0.2); Basophils % (auto) 0.3 %; Eosinophils # (auto) 0.27 K/uL (0-0.5); Eosinophils % (auto) 3.8 %; Hematocrit (blood only) 37.5 % (37-47); Immature Granulocytes # (auto) 0.01 K/uL (0.00-0.02); Immature Granulocytes % (auto) 0.1 %; Lymphocytes # (auto) 2.44 K/uL (1.2-3.4); Lymphocytes % (auto) 34.3 %; Mean Corpuscular Hgb Conc 34.7 g/dL (32-36); Mean Corpuscular Volume 92.4 fL (80-100); Mean Platelet Volume 10.4 fL (7.4-10.4); Monocytes # (auto) 0.52 K/uL (0.11-0.59); Monocytes % (auto) 7.3 %; Neutrophils # (auto) 3.86 K/uL (1.4-6.5); Neutrophils % (auto) 54.2 %; Platelet Count 174 K/uL (130-400); RDW Coefficient of Variation 13.2 % (11.5-14.5); Red Blood Count 4.06 M/uL (4.2-5.4); White Blood Count 7.12 K/uL (4.8-10.8)
[2021-04-25 10:05] LABS: Estimated Average Glucose 154 mg/dl
[2021-04-25 10:13] LABS: BUN Creatinine Ratio 7.9 (10-20); Bilirubin Direct 0.2 mg/dl (0-0.2); Bilirubin,Total 0.7 mg/dl (0.2-1); Creatinine Clr Calc Pharmacy 134.5 ml/min; Est GFR (African American) 129.8 ml/min; Potassium 2.8 mmol/L (3.5-5.1); Total Protein 6.2 gm/dl (6.4-8.2)
[2021-04-25] MEDS: MONTELUKAST SODIUM 10 MG TABLET PO SCH (10:59)
[2021-04-25] MEDS ORDERED: POTASSIUM CHLORIDE CRTAB 20 MEQ TABCR PO STA (11:21)
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
--- NOTE | 2021-04-25 12:40 | XRay Report ---
XR chest 2V PA/lateral HISTORY: interstitial lung disease; dyspneic; eval new pathology COMPARISON: Chest 05/20/2020. FINDINGS: No pneumothorax or no pleural effusions. The cardiac silhouette is normal in size. There ar e low lung volumes with diffuse interstitial thickening consistent with the patient's history of a ch ronic interstitial lung disease. This is similar to the prior study. A small focal areas of increased density within the right mid to lower lung zone. This could be due to the chronic interstitial farris e or a superimposed atypical pneumonia. IMPRESSION: 1. Small focal areas of increased density within the right mid to lower lung zone. This could be due to a superimposed pneumonia or chronic interstitial change. These appear to have slightly progressed in the interval. 2. Redemonstration of the patient's known chronic interstitial lung disease. ACT 112: Negative or not required by law. Electronically signed by: Kavin Damon M.D. 04/25/2021 12:39 PM
[2021-04-25] MEDS: POTASSIUM CHLORIDE 20 MEQ in LACTATED RINGER'S 1,000 ML IV SCH ×2 (12:58→20:55)
[2021-04-25] MEDS: POTASSIUM CHLORIDE / WTR 10 MEQ/100 ML PLCT IV SCH ×2 (12:58→14:54)
[2021-04-25] MEDS ORDERED: SIMETHICONE 80 MG CHEW PO STA (19:34)
[2021-04-25] MEDS ORDERED: BISMUTH SUBSALICYLATE 262 MG CHEW PO ONE (19:34)
[2021-04-25] MEDS: LOSARTAN POTASSIUM 50 MG TAB PO SCH (20:39)
[2021-04-25] MEDS: CYCLOBENZAPRINE HCL 10 MG TAB PO PRN (20:39)
[2021-04-25] MEDS: rOPINIRole HCL 1 MG TABLET PO SCH (20:41)
[2021-04-25] MEDS: traZODone HCL 100 MG TAB PO SCH (20:41)
--- NOTE | 2021-04-25 21:19 | Hospitalist Progress Note ---
Date of Service April 25, 2021 Assessment & Plan (1) Acute pancreatitis: Plan: resolving clinically & biochemically. etiology? could she have had a passed gallstone? (pancreatic head is inflamed, transient elevation in ast/alt, etc) MRCP, however, without CBD stones or marked dilatation. ?divisum. mildly high triglycerides in January of 2021 but not high enough to cause pancreatitis. due to clinical improvement restart clears. advance slowly next 1-2 days. reduce IV fluid rate to 100cc/hr. placed [facility] consult for this issue - outpatient EUS recommended in 6 weeks. (2) Constipation: Plan: Last BM 8 days ago. Patient states that she has longstanding history of constipation - typically only has 3-4 BMs per month. Continue complex bowel regimen including Colace, dulcolax, lactulose, amitiza. follows with GI in [place]. if no improvement with regimen consider dulcolax suppos or enema. (3) Diabetes mellitus type II, uncontrolled: Plan: Chronic. Last A1C=8.4 on 12/25/20. a1c this admission 7%. Patient reports not taking her medications for several days (metformin). At one point she felt as if her DM had resolved. Told her that her DM is still present but actually applauded her in that her a1c is markedly better vs past a1cs. encouraged her to resume metformin at d/c. she asked numerous questions about diet at home -- will consult DM educator. cont Novolog Sliding. 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 Patient on home O2 - 2L Cont home meds see bronchospasm below (9) Hiatal hernia: Plan: continue Pepcid continue Protonix add carafate prn? (10) Hypokalemia: Plan: severe replace IV + PO recheck K with mag level in am (11) Chronic respiratory failure with hypoxia: Plan: on home O2, 2 liters is supposed to be on it 24/ would formally 2-step her at d/c to clarify oxygen needs (12) Bronchospasm: Plan: episodes of significant shortness of breath - bronchospasm? laryngospasm (such as vocal cord dyskinesis)? GERD-induced bronchospasm or laryngospasm? anxiety? cardiac? other? patient states symptoms improve with albuterol nebs making bronchospasm most likely. since symptoms are often at night -- try albuterol 2 puffs x 1 at HS tonight and re-eval in am (13) Vaginitis: Plan: on diflucan for presumed candidal vaginitis AFFIRM sent to r/o BV, trich, etc. (14) Candidiasis of mouth and esophagus: Plan: diflucan (15) Complex care coordination: Plan: patient was living out of a hotel just prior to this admission had been living out of town, then moved to [place] to be closer to her doctors caseworker protective services mentioned that the hotel she was living in came from a referral from a woman's detention? case management heavily involved in dispo planning obtain PT, SHIRA dennis Admission and Anticipated Discharge Date Admission Date: April 24, 2021 Subjective patient states that 2-3 times in the last 1-2 days - especially at night - she has acute dyspnea with cough neb treatments help it the symptoms happen acutely/quickly she denies overt heartburn symptoms she asks multiple questions about these spells asks multiple questions about her DM and asks if we can change her diet to some degree she felt as if she wasn't a diabetic any longer because her a1c had improved abd pain MUCH Improved no nausea/emesis no BM since admission passing little gas Review of Systems Review of Systems: gen - no fever, no chills, no fatigue, wants to eat CV - no chest pain pulm - baseline STOKES; uses NC O2 at home - supposed to be 24/7, but mainly uses it w/ activity GI - no vomiting, ongoing constipation (chronic issue) - vaginal discharge, but no itching Physical Exam Physical Exam: gen - NAD, nontoxic appearing mouth - MMM heart - tachy, s1 s2, no murmur lungs - CTA b/l, mild rales base, no wheeze abd - no tenderness today; BS+, no HSM, ND ext - no edema, pulses 2+ b/l psych - a/o x 3 Results & Data Results & Data ([facility]) Vital Signs (Past 12 Hours) Vital Signs Temp Pulse Resp BP Pulse Ox 04/25/21 14:58 36.9 C 110 H 18 104/70 90 Laboratory Results Laboratory Results - last 24 hr 04/24/21 04/25/21 04/25/21 22:15 08:13 08:32 WBC RBC Hgb Hct MCV MCH MCHC RDW Std Deviation RDW Coeff of Joyce Plt Count MPV Immature Gran % (Auto) Neut % (Auto) Lymph % (Auto) Gonzales % (Auto) Eos % (Auto) Baso % (Auto) Neut # (Auto) Lymph # (Auto) Gonzales # (Auto) Eos # (Auto) Baso # (Auto) Immature Gran # (Auto) Sodium 142 Potassium 2.8 L D Chloride 108 H Carbon Dioxide 25 Anion Gap 9.0 BUN 4 L D Creatinine 0.46 L Est Cr Clr Drug Dosing 134.5 Est GFR ( Amer) 129.8 Est GFR (Non-Af Amer) 112.0 BUN/Creatinine Ratio 7.9 L Glucose 155 H POC Glucose 155 H Estimat Average Glucose Hemoglobin A1c Calcium 8.0 L Total Bilirubin 0.7 Direct Bilirubin 0.2 AST 22 ALT 72 Alkaline Phosphatase 63 Total Protein 6.2 L Albumin 3.0 L Lipase 176 T.vaginalis (Amp Det) Pending 04/25/21 04/25/21 04/25/21 08:32 08:32 12:03 WBC 7.12 RBC 4.06 L Hgb 13.0 Hct 37.5 MCV 92.4 MCH 32.0 MCHC 34.7 RDW Std Deviation 44.0 RDW Coeff of Joyce 13.2 Plt Count 174 MPV 10.4 Immature Gran % (Auto) 0.1 Neut % (Auto) 54.2 Lymph % (Auto) 34.3 Gonzales % (Auto) 7.3 Eos % (Auto) 3.8 Baso % (Auto) 0.3 Neut # (Auto) 3.86 Lymph # (Auto) 2.44 Gonzales # (Auto) 0.52 Eos # (Auto) 0.27 Baso # (Auto) 0.02 Immature Gran # (Auto) 0.01 Sodium Potassium Chloride Carbon Dioxide Anion Gap BUN Creatinine Est Cr Clr Drug Dosing Est GFR ( Amer) Est GFR (Non-Af Amer) BUN/Creatinine Ratio Glucose POC Glucose 135 H Estimat Average Glucose 154 Hemoglobin A1c 7.0 H Calcium Total Bilirubin Direct Bilirubin AST ALT Alkaline Phosphatase Total Protein Albumin Lipase T.vaginalis (Amp Det) 04/25/21 04/25/21 17:13 20:33 WBC RBC Hgb Hct MCV MCH MCHC RDW Std Deviation RDW Coeff of Joyce Plt Count MPV Immature Gran % (Auto) Neut % (Auto) Lymph % (Auto) Gonzales % (Auto) Eos % (Auto) Baso % (Auto) Neut # (Auto) Lymph # (Auto) Gonzales # (Auto) Eos # (Auto) Baso # (Auto) Immature Gran # (Auto) Sodium Potassium Chloride Carbon Dioxide Anion Gap BUN Creatinine Est Cr Clr Drug Dosing Est GFR ( Amer) Est GFR (Non-Af Amer) BUN/Creatinine Ratio Glucose POC Glucose 136 H 188 H Estimat Average Glucose Hemoglobin A1c Calcium Total Bilirubin Direct Bilirubin AST ALT Alkaline Phosphatase Total Protein Albumin Lipase T.vaginalis (Amp Det) Diagnostic Findings Chest X-Ray 04/25/21 11:24 XR chest 2V PA/lateral HISTORY: interstitial lung disease; dyspneic; eval new pathology COMPARISON: Chest 05/20/2020. FINDINGS: No pneumothorax or no pleural effusions. The cardiac silhouette is normal in size. There are low lung volumes with diffuse interstitial thickening consistent with the patient's history of a chronic interstitial lung disease. This is similar to the prior study. A small focal areas of increased density within the right mid to lower lung zone. This could be due to the chronic interstitial change or a superimposed atypical pneumonia. IMPRESSION: 1. Small focal areas of increased density within the right mid to lower lung zone. This could be due to a superimposed pneumonia or chronic interstitial change. These appear to have slightly progressed in the interval. 2. Redemonstration of the patient's known chronic interstitial lung disease. ACT 112: Negative or not required by law. Electronically signed by: Kavin Damon M.D. 04/25/2021 12:39 PM PG Care Time/CCT Total # of Minutes Spent Total Time Spent with Patient: Total time spent is greater than 50% in coordination of care (as documented) at patient's floor/unit and/or counseling patient: Coding Level of Care Code 65389 Subseq Hosp Care Lvl 3 Diagnoses Acute pancreatitis K85.90 Acute pancreatitis complication: unspecified Pancreatitis type: unspecified pancreatitis type Constipation K59.00 Diabetes mellitus type II, uncontrolled E11.65 Dyslipidemia E78.5 Restless leg syndrome G25.81 History of Guillain-[place] syndrome Z86.69 Hypertension I10 COPD (chronic obstructive pulmonary disease) J44.9 Hiatal hernia K44.9 Hypokalemia E87.6 Chronic respiratory failure with hypoxia J96.11 Bronchospasm J98.01 Vaginitis N76.0 Complex care coordination Z71.89 Candidiasis of mouth and esophagus B37.81; B37.0 (1) Acute pancreatitis Acute pancreatitis complication: unspecified Pancreatitis type: unspecified pancreatitis type Qualified Code(s): K85.90 - Acute pancreatitis without necrosis or infection, unspecified
[2021-04-25] MEDS ORDERED: ALBUTEROL HFA 8 GM INHALER INH ONE (22:00)
[2021-04-26] MEDS ORDERED: COUGH DROP (SUGAR FREE) LOZ 24 LOZ/1 BOX BUCCAL ONE (03:01)
[2021-04-26] MEDS ORDERED: guaiFENesin 600 MG TABCR PO PRN (03:33)
[2021-04-26] MEDS: POTASSIUM CHLORIDE 20 MEQ in LACTATED RINGER'S 1,000 ML IV SCH ×2 (05:40→16:08)
[2021-04-26] MEDS: HYDROmorphone INJ 0.5 MG/0.5 ML SYR IV PRN ×3 (07:45→23:44)
[2021-04-26] MEDS: LUBIPROSTONE 8 MCG CAP PO SCH ×2 (07:46→21:38)
[2021-04-26] MEDS: amLODIPine BESYLATE 5 MG TAB PO SCH (07:47)
[2021-04-26] MEDS: PANTOprazole 40 MG TAB PO SCH ×2 (07:47→21:37)
[2021-04-26] MEDS: GABAPENTIN 300 MG CAP PO SCH ×2 (07:53→21:38)
[2021-04-26] MEDS: MONTELUKAST SODIUM 10 MG TABLET PO SCH (07:54)
[2021-04-26] MEDS: ATORVASTATIN 40 MG TAB PO SCH (07:54)
[2021-04-26] MEDS: ALBUT/IPRATROP 3MG/0.5MG NEB 3 ML VIAL INH PRN ×2 (07:55→11:30)
[2021-04-26] MEDS: FAMOTIDINE 20 MG TAB PO SCH ×2 (07:56→21:39)
[2021-04-26] MEDS: FLUCONAZOLE 100 MG TAB PO SCH (07:56)
[2021-04-26] MEDS: UMECLIDINIUM/VILANTEROL 62.5/25MCG 7 PUFFS/INHALER INH SCH (07:57)
[2021-04-26] MEDS: FLUTICASONE FUROATE 100MCG 14 PUFFS/INHALER INH SCH (07:57)
[2021-04-26] MEDS: DOCUSATE SODIUM 100 MG CAP PO PRN (08:09)
[2021-04-26] MEDS: INSULIN ASPART 100 UNITS/ML 3 ML PEN SC SCH ×4 (08:56→21:35)
[2021-04-26 10:31] LABS: BUN Creatinine Ratio 2.9 (10-20); Calcium 8.8 mg/dl (8.5-10.1); Creatinine Clr Calc Pharmacy 137.5 ml/min; Est GFR (African American) 130.7 ml/min; Est GFR (Non-African American) 112.8 ml/min; Magnesium 1.6 mg/dl (1.8-2.4); Potassium 3.5 mmol/L (3.5-5.1)
[2021-04-26] MEDS ORDERED: ALBUTEROL HFA 8 GM INHALER INH PRN (11:02)
[2021-04-26] MEDS: DICLOFENAC SOD 1% GEL 100 GM TUBE EXT PRN ×2 (11:12→21:45)
[2021-04-26] MEDS ORDERED: FLUCONAZOLE 50 MG TAB PO ONE (13:48)
--- NOTE | 2021-04-26 13:53 | Hospitalist Progress Note ---
Date of Service April 26, 2021 Assessment & Plan (1) Acute pancreatitis: Plan: Pippa Schmitt is a 55-year-old female with a history of cholecystectomy who presents with abdominal pain and labs consistent with acute pancreatitis Acute pancreatitis MRCP does not show CBD stones or ductal dilation, patient has inflamed pancreatic head and transient AST/ALT elevation suggesting potentially passed stone. Patient without severe hyperlipidemia/hyper triglyceride Clinically improving Hydromorphone 0.25 every 3 hours as needed She would like to advance diet, recommend advancing slowly. If tolerating full liquids well for lunch may trial low-fat diet, if increased pain or not doing well would wait another day. [facility] consulted, patient will have outpatient EUS in 6 weeks IVFM 100 cc/h (2) Constipation: Plan: Last BM 8 days ago. Patient states that she has longstanding history of constipation - typically only has 3-4 BMs per month. Continue complex bowel regimen including Colace, dulcolax, lactulose, amitiza. follows with GI in [place]. if no improvement with regimen consider dulcolax suppos or enema. (3) Diabetes mellitus type II, uncontrolled: Plan: Chronic. Last A1C=8.4 on 12/25/20. a1c this admission 7%. Patient reports not taking her medications for several days (metformin). At one point she Reportsher DM had resolved. Patient encouraged to resume Metformin on discharge Patient is refusing insulin, has BSG [id number] so far. 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 Patient on home O2 - 2L Cont home meds see bronchospas (9) Hiatal hernia: Plan: continue Pepcid continue Protonix (10) Hypokalemia: Plan: severe replace IV + PO recheck K with mag level in am (11) Chronic respiratory failure with hypoxia: Plan: on home O2, 2 liters is supposed to be on it 06/04 Patient will require formal 2-step her at d/c to clarify oxygen needs (12) Bronchospasm: Plan: Patient with significant bronchospasm and cough, also significant anxiety surrounding cough episodes Symptoms improved greatly with nebs also suggestive of bronchospasm Continue albuterol DuoNeb's with albuterol inhaler available for overnight at patient request Continue GERD treatment as noted Barbara Cordero as needed (13) Vaginitis: Plan: -on diflucan for presumed candidal vaginitis -AFFIRM sent to r/o BV, trich, etc. (14) Candidiasis of mouth and esophagus: Plan: - Oral NYSTATIN susp ordered - Pt on diflucan x1 for candidal vaginitis, QT interval 439 MS (15) Complex care coordination: Plan: patient was living out of a hotel just prior to this admission -had been living out of town, then moved to [place] to be closer to her doctors - case supervisor mentioned that the hotel she was living in came from a referral from a woman's retirement. Patient is anticipating a return to a different hotel on Thursday and moving, ongoing discussion with case management for dispo planning Admission and Anticipated Discharge Date Admission Date: April 24, 2021 Subjective When he reports that she continues have coughing fits and some abdominal pain today. She reports that her pain is improved overall, and would like to advance her diet but notes that she did have some pain with liquid breakfast this morning. Reports that her abdominal pain is a 24/10 at time of bedside admission. She reports she is not short of breath at baseline, but has been hav ing some shortness of breath with her coughing fits. Would like to try some other medication for her cough. Reports she has sputum "which just bounces around "but which is mostly clear. Denies fever chills this morning and last night. Review of Systems Review of Systems: Constitutional: Denies fever, chills, malaise Eyes: Denies vision change ENT: Denies ear pain, sinus pain. Endorses sore throat from coughing Cardiovascular: Denies Chest pain, chest pressure, palpitations, extremity swelling Respiratory: Endorses coughing spells with some clear sputum production. Denies shortness of breath when not coughing. Gastrointestinal: Endorses abdominal pain last night, 24 pain at time of bedside assessment. Denies nausea. Musculoskeletal: Denies acute focal weakness, muscle aches/pain, joint aches/pain Integumentary:Denies acute lesions, bruising Neurological: Denies headache, numbness, tingling, focal weakness Physical Exam Physical Exam: General: A&Ox3. NAD. Cooperative. HEENT: Atraumatic, normocephalic. Visual acuity grossly intact Pulm: Moderate air movement, intermittent coughing lungs otherwise CTAB without rales, or rhonchi. Cardiac: RRR, -mrg. Radial pulses intact and symmetrical. Abdominal: Mild tenderness to palpation at epigastrium. No rebound tenderness. Soft. Nonrigid, nondistended. Bowel sounds intact. Extremities: Warm, dry moving all extremities equally Results & Data Results & [facility]) Vital Signs (Past 12 Hours) Vital Signs Temp Pulse Resp BP Pulse Ox 04/26/21 11:31 103 H 22 97 04/26/21 08:28 36.6 C 88 16 140/86 97 04/26/21 07:55 101 H 20 96 PG Care Time/CCT Total # of Minutes Spent Total Time Spent with Patient: Total time spent is greater than 50% in coordination of care (as documented) at patient's floor/unit and/or counseling patient: Coding Level of Care Code 13813 Subseq Hosp Care Lvl 3 Diagnoses Acute pancreatitis K85.90 Acute pancreatitis complication: unspecified Pancreatitis type: unspecified pancreatitis type Constipation K59.00 Diabetes mellitus type II, uncontrolled E11.65 Dyslipidemia E78.5 Restless leg syndrome G25.81 History of Guillain-[place] syndrome Z86.69 Hypertension I10 COPD (chronic obstructive pulmonary disease) J44.9 Hiatal hernia K44.9 Hypokalemia E87.6 Chronic respiratory failure with hypoxia J96.11 Bronchospasm J98.01 Vaginitis N76.0 Candidiasis of mouth and esophagus B37.81; B37.0 Complex care coordination Z71.89 (1) Acute pancreatitis Acute pancreatitis complication: unspecified Pancreatitis type: unspecified pancreatitis type Qualified Code(s): K85.90 - Acute pancreatitis without necrosis or infection, unspecified
[2021-04-26] MEDS: MULTIVITAMIN TAB PO SCH (17:26)
[2021-04-26] MEDS: traZODone HCL 100 MG TAB PO SCH (21:37)
[2021-04-26] MEDS: rOPINIRole HCL 1 MG TABLET PO SCH (21:37)
[2021-04-26] MEDS: LOSARTAN POTASSIUM 50 MG TAB PO SCH (21:38)
[2021-04-26] MEDS: BENZONATATE 100 MG CAPSULE PO PRN (23:49)
[2021-04-27] MEDS: POTASSIUM CHLORIDE 20 MEQ in LACTATED RINGER'S 1,000 ML IV SCH (03:34)
[2021-04-27] MEDS: HYDROmorphone INJ 0.5 MG/0.5 ML SYR IV PRN (06:45)
[2021-04-27] MEDS: INSULIN ASPART 100 UNITS/ML 3 ML PEN SC SCH ×2 (07:55→11:56)
[2021-04-27 08:02] LABS: Basophils # (auto) 0.03 K/uL (0-0.2); Basophils % (auto) 0.5 %; Eosinophils # (auto) 0.32 K/uL (0-0.5); Eosinophils % (auto) 5.1 %; Hematocrit (blood only) 37.8 % (37-47); Immature Granulocytes # (auto) 0.02 K/uL (0.00-0.02); Immature Granulocytes % (auto) 0.3 %; Lymphocytes # (auto) 1.48 K/uL (1.2-3.4); Lymphocytes % (auto) 23.6 %; Mean Corpuscular Hemoglobin 32.6 pg (25-34); Mean Corpuscular Hgb Conc 34.4 g/dL (32-36); Mean Corpuscular Volume 94.7 fL (80-100); Mean Platelet Volume 10.3 fL (7.4-10.4); Monocytes # (auto) 0.57 K/uL (0.11-0.59); Monocytes % (auto) 9.1 %; Neutrophils # (auto) 3.84 K/uL (1.4-6.5); Neutrophils % (auto) 61.4 %; Platelet Count 210 K/uL (130-400); RDW Coefficient of Variation 13.1 % (11.5-14.5); RDW Standard Deviation 45.1 fL (36.4-46.3); Red Blood Count 3.99 M/uL (4.2-5.4); White Blood Count 6.26 K/uL (4.8-10.8)
[2021-04-27 08:34] LABS: BUN Creatinine Ratio 3.5 (10-20); Calcium 9.1 mg/dl (8.5-10.1); Creatinine Clr Calc Pharmacy 121.3 ml/min; Est GFR (African American) 125.5 ml/min; Est GFR (Non-African American) 108.3 ml/min
[2021-04-27] MEDS: FAMOTIDINE 20 MG TAB PO SCH (09:09)
[2021-04-27] MEDS: LUBIPROSTONE 8 MCG CAP PO SCH (09:09)
[2021-04-27] MEDS: PANTOprazole 40 MG TAB PO SCH (09:10)
[2021-04-27] MEDS: FLUCONAZOLE 100 MG TAB PO SCH (09:10)
[2021-04-27] MEDS: MULTIVITAMIN TAB PO SCH (09:10)
[2021-04-27] MEDS: MONTELUKAST SODIUM 10 MG TABLET PO SCH (09:10)
[2021-04-27] MEDS: ATORVASTATIN 40 MG TAB PO SCH (09:10)
[2021-04-27] MEDS: GABAPENTIN 300 MG CAP PO SCH (09:10)
[2021-04-27] MEDS: amLODIPine BESYLATE 5 MG TAB PO SCH (09:10)
[2021-04-27] MEDS: UMECLIDINIUM/VILANTEROL 62.5/25MCG 7 PUFFS/INHALER INH SCH (09:11)
[2021-04-27] MEDS: FLUTICASONE FUROATE 100MCG 14 PUFFS/INHALER INH SCH (09:11)
[2021-04-27] MEDS: BENZONATATE 100 MG CAPSULE PO PRN (09:15)
--- NOTE | 2021-04-27 12:57 | Discharge Summary ---
Date of Service April 27, 2021 Admission HPI Per Admitting Provider Pippa Schmitt is a 55yo female with multiple medical problems presenting with abdominal pain. Patient reports RUQ as well as lower abdominal pain, crampy, ongoing x 8 days. Pain is worst after meals in the epigastric area. She has not had a BM x 8 days and feels very bloated and constipated. Also with PO intolerance - reports she hasn't tolerated more than a few bites of food for the last 5 days. She has not taken her medications. Has had nausea with some vomiting. Otherwise denies fever, chills, cough, worsening SOB, dysuria. Has been taking stool softeners at home - up to 5 per day for the last 3 days as well as OTC "colon cleanser". ER Course: NSS x 2 L, Zofran Admission Exam Per Admitting Provider General: patient resting comfortably, NAD, non-toxic in appearance, AA&O x 4 Skin: warm, dry, intact, no rashes or lesions, well healed scars on neck HEENT: NC/AT, PERRL, EOMI, anicteric sclera, conjunctiva without injection, external ear normal to inspection and nontender, nares patent, moist mucus membranes, dentition intact, no oropharyngeal lesions, neck supple, trachea midline, no LAD, no thyromegaly, no JVD Heart: +S1/S2, regular, no m/r/g Lungs: equal air entry bilaterally, no rales/rhonchi/wheezes Abd: +BS, soft, ND, tender to palpation in lower abdomen with voluntary guarding, fullness in LLQ, no epigastric tenderness to palpation Ext: warm, 2+ pulses in UE/LE bilaterally, no clubbing/cyanosis or edema Neuro: nonfocal, patient AA&O x 4, speech intact, no facial droop, moving all extremities on command with equal strength 5/5 Principal Diagnosis Acute pancreatitis Discharge Exam General: A&Ox3. NAD. Cooperative. HEENT: Atraumatic, normocephalic. Visual acuity and hearing grossly intact. No oral plaque appreciated on discharge exam. Pulm: CTAB A&P. -wheezes, -rales, -rhonchi. Symmetrical chest rise. No increase work of breathing. No respiratory distress. Breathing comfortably with SPO2 94% on room air. No forced end expiratory wheezes. Cardiac: RRR, -mrg. Radial pulses intact and symmetrical. Abdominal: Nontender, nondistended, soft. BS present. No rebound tenderness. No guarding. Extremities: Warm, dry Discharge Data Allergies Allergy/AdvReac Type Severity Reaction Status Date / Time house dust Allergy Intermediate Difficulty Verified 04/24/21 07:22 Breathing mold Allergy Intermediate ASTHMA Verified 04/24/21 07:22 ATTACK Consultations 04/24/21 05:20 ED Decision to Admit Stat 04/25/21 12:08 Consult Gastroenterology Routine Ordered Studies 04/24/21 01:18 CT abd pelvis oral and IV con Urgent 04/24/21 10:48 MR MRCP Urgent Hospital Course (1) Acute pancreatitis: Pippa Schmitt is a 55-year-old female with a history of cholecystectomy who presented with abdominal pain and labs consistent with acute pancreatitis To do as outpatient: 1. Follow-up with gastroenterology for outpatient EUS in 4-6 weeks 2. Follow-up with pulmonary for reassessment of chronic respiratory failure and any inhaler adjustments 3. Follow-up discussion with outpatient PCP regarding diabetes, patient would like to trial down titration of Metformin if appropriate Acute pancreatitis MRCP did not show CBD stones or ductal dilation, patient has inflamed pancreatic head and transient AST/ALT elevation suggesting potentially passed stone. Patient without severe hyperlipidemia/hypertriglyceridemia, suspect in the setting of cholecystectomy. Clinically improved with fluids and minimal amounts of hydromorphone for pain control Diet advanced over approximately 2 days at patient request, tolerating low-fat diet well day of discharge with no increased pain or discomfort. [facility] consulted during admission, recommend patient follow-up for outpatient EUS in 6 weeks. No pain day of discharge, no doses of IV pain medication required day of discharge No signs of gastro-intestinal infection requiring antibiotics during admission Patient instructed to continue low-fat diet on discharge (2) Constipation: Patient with chronic constipation for which she sees a GI in [place] Patient reported normally 3-4 bowel movements per month, and a bowel regimen including Colace/Dulcolax/lactulose/Amitiza Patient urinating well with small bowel movement day of discharge, recommended continuing home regimen with low-fat diet on discharge (3) Diabetes mellitus type II, uncontrolled: - Chronic. Last A1C=8.4 on 12/25/20. - a1c this admission 7%. Patient reported not taking Metformin for several days prior to admission. She reported that her blood sugars tend to be in the 140-180 range which she feels is good. 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 Patient reports 2 to 2.5 L of oxygen baseline During admission patient greater than 90% on room air at rest with desaturation to high 80s on ambulation which improved with oxygen Continue home oxygen as needed, recommend as needed to maintain O2 sat greater than 90% Patient will follow up with her machine binder stripper and PCP for further management following up with outpatient machine binder stripper Continue outpatient inhalers (12) Bronchospasm: Patient with significant bronchospasm and cough, also significant anxiety surrounding cough episodes Symptoms improved greatly with nebs also suggestive of bronchospasm At time of discharge assessment placement breathing comfortably with no audible wheezes at rest or on forced expiration Continue GERD treatment as noted Tessaldebra Perlmoises as needed (13) Tachycardia: Patient intermittently tachycardic following albuterol use, heart rate in 80s in between. Intermittent sinus tach not felt to be due to volume depletion (14) Vaginitis: -Patient treated with 3 doses of fluconazole 100 mg during admission for bacterial vaginitis Vaginal culture during admission returned normal savita, no additional antibiotics indicated (15) Candidiasis of mouth and esophagus: - Oral NYSTATIN susp ordered during admission Diflucan given as noted for vaginitis during admission (16) Complex care coordination: Case management consulted during admission Patient had been living at a hotel with concerns for the stability of her housing. She discussed her housing with them during admission, and reported that she would be able to be discharged back to her current room and that they were accommodating her based on her hospital stay. [facility] was also contacted to aid in community resources and housing. Total Time Total Time Spent Total Time Spent (In Minutes): Total time spent preparing discharge approximately 1 hour including time spent with patient, discussion with case management, and documentation. Discharge Plan Discharge Items Patient Disposition: Home - Self-Care Reason For Visit: PANCREATITIS Discharge Diagnosis: Pancreatitis Activity: Resume your previous activity Non-emergency contact: Primary Care Provider and Director [employer] Call non-emergency contact if: you have any medication questions, your symptoms worsen, your pain is not controlled and your pain is unusual for you Follow-up/Referrals: Giovanni Lima PA-C [Physician Radiology Assistant] - Uvaldo Mancini MD [Primary Care Provider] - Calvin Madden DO [Physician] - Diet: Low Fat Addtl Attending Provider Instructions: You were seen in the hospital for acute pancreatitis. Imaging studies did not show evidence of any stones in the ducts between the pancreas/liver and inte malik. You were treated with IV fluids, pain medicine, and had your diet slowly advanced with good clinical progression. You did not show signs of a gastrointestinal infection requiring antibiotics. You were eating and drinking well at time of discharge. Please continue to follow a low-fat diet as greasy/fat laden meals may cause your symptoms to return or worsen. It is also very important to avoid alcohol which can also cause or worsen pancreatitis. You had a follow-up referrals made as below. A follow-up appointment is being made for you with your primary care physician. You should receive a call to confirm your appointment, you should be seen within 1 week. If you do not receive a call to confirm this appointment, or need to cancel/change this appointment please call Dr. Mancini at [phone]. A follow-up appointment is being made for you with gastroenterology. You are seen by their service during admission, and was recommended that you have an outpatient EUS, a camera-based endoscopic procedure, in 4 to 6 weeks to better investigate the cause of your pancreatitis episode once you have recovered. You should receive a call to confirm your appointment, if you do not receive a call when need to cancel/change your appointment please contact Joshua ATWOOD at . You experienced several episodes of bronchospasm/asthma attacks during your admission. At time of discharge your oxygen saturation was normal (greater than 90%) on room air. You may resume your home inhalers, and albuterol inhaler and nebulizer refill has been sent to the pharmacy. You may resume your home inhalers as noted below. If you experience any worsening shortness of breath, wheezing, difficulty breathing, or other new concerning symptoms please contact your primary care physician or call 911 to return to the emergency room for further evaluation. You have a history of COPD have been seen by outpatient pulmonology. Please discuss additional follow-up with pulmonology with your PCP, or call your machine binder stripper for an appointment, when you return home as they may want to reassess your COPD and home inhaler regimen. If you develop any new or worsening symptoms including fever, chills, sweats, chest pain, chest pressure, difficulty breathing, uncontrolled nausea/vomiting, rash, wheezing, passing out or nearly passing out, bleeding, black/bloody bowel movements, or other new or concerning symptoms please call your primary care physician at [phone], or call 911 for re-evaluation in the emergency department if you are very concerned. Pending Studies at Discharge: Yes Studies:: Followup in 4-6 with for US-EUS with gastroenterology Stand-Alone Forms: My [facility] Loosecubes, Smoking Cessation Medications and DC Order Prescriptions: Continued pantoprazole 40 mg tablet,delayed release (DR/EC) 40 mg PO BID Qty: 180 RF: 3 trazodone 100 mg tablet 200 mg PO HS Qty: 180 RF: 3 (DME) blood-glucose meter [OneTouch Verio Meter] Misc See Rx Instructions .ROUTE .MEDSUPPLY Qty: 1 RF: 0 amlodipine 2.5 mg tablet 2.5 mg PO DAILY Qty: 30 RF: 5 losartan 100 mg tablet 100 mg PO HS Qty: 90 RF: 3 montelukast 10 mg tablet 10 mg PO DAILY Qty: 30 RF: 5 (DME) lancets [OneTouch Delica Plus Lancet] 30 gauge misc See Rx Instructions .ROUTE .MEDSUPPLY Qty: 100 RF: 3 (DME) Oxygen Home Liters Per Minute See Rx Instructions .MEDSUPPLY Qty: 1 RF: 0 metformin 500 mg tablet extended release 24 hr 2,000 mg PO DAILY Qty: 120 RF: 5 naproxen 500 mg tablet 500 mg PO BID PRN (Reason: pain) Qty: 60 RF: 5 atorvastatin 40 mg tablet 40 mg PO DAILY Qty: 90 RF: 3 ropinirole 1 mg tablet 1 mg PO PM Qty: 90 RF: 3 lubiprostone [Amitiza] 24 mcg capsule 24 mcg PO BID Qty: 60 RF: 2 cyclobenzaprine 10 mg tablet 10 mg PO TID PRN (Reason: muscle spasm) Qty: 90 RF: 1 hydrocodone-acetaminophen 5-325 mg tablet See Rx Instructions .ROUTE .COMPLEX Qty: 90 RF: 0 famotidine 20 mg tablet 20 mg PO BID Qty: 180 RF: 1 ondansetron 4 mg tablet,disintegrating 4 mg PO Q8H PRN (Reason: nausea and vomiting) Qty: 30 RF: 5 ipratropium-albuterol 0.5 mg-3 mg(2.5 mg base)/3 mL solution for nebulization 3 ml inhalation QID PRN (Reason: wheezing) Qty: 90 RF: 2 chlorpheniramine maleate 12 mg tablet extended release 12 mg PO Q12H PRN (Reason: itching) Qty: 60 RF: 1 gabapentin 300 mg capsule 300 mg PO BID Qty: 60 RF: 5 Trelegy Ellipta 100-62.5-25 mcg blister with device 1 inh inhalation DAILY Qty: 1 RF: 3 Centrum Complete 18-400 mg-mcg tablet 1 tab PO QAM RF: 0 (DME) OneTouch Verio test strips Strip See Rx Instructions .ROUTE .MEDSUPPLY Qty: 150 RF: 5 sodium chloride 7 % solution for nebulization 4 ml inhalation BID Qty: 240 RF: 5 melatonin 10 mg Tablet 10 mg PO HS PRN (Reason: Sleep) RF: 0 diclofenac sodium [Voltaren] 1 % gel 2 gm TOP QID PRN (Reason: Pain) RF: 0 polyethylene glycol 3350 17 gram/dose powder 17 g PO QAM RF: 0 fluticasone propionate [Flonase Allergy Relief] 50 mcg/actuation spray,suspension 1 sprays INTNAS QAM PRN (Reason: Nasal Congestion) RF: 0 psyllium husk [Fiber (psyllium husk)] 0.52 gram capsule 0.52 g PO QAM RF: 0 albuterol sulfate 2.5 mg /3 mL (0.083 %) solution for nebulization 2.5 mg INHALATION QID PRN (Reason: Shortness Of Breath) Qty: 90 RF: 1 Changed albuterol sulfate [Ventolin HFA] 90 mcg/actuation HFA aerosol inhaler 2 puff inhalation Q4H PRN (Reason: SOB) 30 Days Qty: 1 RF: 0 Discharge Orders: Discharge Order (Routine); Ordered 04/27/21 Ordered By: Dario Daniels/Other Patient Handouts: A1C, Managing Type 2 Diabetes, Healthy Meals for Diabetes, Diabetes: Meal Planning Admission Data Admit Date/Time: 04/24/21 06:03 Attending Provider: Dario Benavides Admit Provider: Gilma Crump Primary Care Provider: Uvaldo Mancini Other Providers: Gilma Crump ; Calvin Madden Coding Level of Care Code D/C DAY MANAGEMENT >30 MINS Diagnoses Acute pancreatitis K85.90 Acute pancreatitis complication: unspecified Pancreatitis type: unspecified pancreatitis type Constipation K59.00 Diabetes mellitus type II, uncontrolled E11.65 Dyslipidemia E78.5 Restless leg syndrome G25.81 History of Guillain-[place] syndrome Z86.69 Hypertension I10 COPD (chronic obstructive pulmonary disease) J44.9 Hiatal hernia K44.9 Hypokalemia E87.6 Chronic respiratory failure with hypoxia J96.11 Bronchospasm J98.01 Vaginitis N76.0 Candidiasis of mouth and esophagus B37.81; B37.0 Complex care coordination Z71.89 Tachycardia R00.0
== END 2021-04-27 15:07 | disposition home or self-care (01) | DRG 439 ==
LOC: ED 00:20 → 3N 06:03 → SUATTDRO 06:03 → 3N 07:55

== ENCOUNTER 2022-02-20 13:49 | Observation (INO) ==
--- NOTE | 2022-02-20 14:27 | Emergency Department Note ---
History of Present Illness General Chief complaint: Weakness Stated complaint: SLURRED SPEECH, WEAK, NUMBNESS Time Seen by Provider: 02/20/22 14:05 Source: patient and other Mode of arrival: ambulatory Limitations: no limitations History of Present Illness Provider complaint: weakness, ataxia Onset (ago): day(s) Maximum Pain Intensity: 7 Patient is a 56-year-old female with a past medical history of hepatitis C, COPD, remote history of Guillain-Sofia syndrome of unknown time, pulmonary hypertension, hyperlipidemia, hypertension, uncontrolled diabetes, and history of alcohol abuse presenting to the ED for the chief complaint of weakness and confusion for the past 24 to 48 hours. Patient is accompanied by an aide who provides most of the history as the patient is overall confused. Aide reports that she went to visit the patient this morning who lives in an apartment by herself woke her up around noon today. Since then the patient seems to be uncoordinated and confused. Aide states it is comparable to his if she were intoxicated. Aide reports that she has no access to alcohol. Mary Ellen reports that her baseline ambulation is without any assistance and her last known well date was 2 days ago where she was able to do this on her own. He denies any falls that she is aware of, no trauma. Pacoe states that over the past few days she has not had any complaints of urinary complaints, nausea, vomiting, or chest pain. Aidcarlos does report that there was a complaint of shortness of breath yesterday but this is a chronic issue for her as she has a history of COPD. When interviewing the patient she is able to follow commands such as closing her eyes does refuse other commands such as raising her eyebrows. Patient is able to state that she is not feeling any chest pain currently. Denies headache, nausea, vomiting, vision changes, loss of hearing, dizziness, or chills. Does note that she has pain in her hips and vega. Otherwise patient states that her only complaint is generalized weakness. No other meaningful HPI obtained from patient. Pt seen during a time of high acuity and national emergency pandemic while wearing PPE. Patient seen in conjunction with the family practice resident, Dr. Marie. Home Medications Medication Instructions Recorded Confirmed Type melatonin 10 mg tablet 10 mg PO HS PRN 07/05/18 02/20/22 History multivitamin-ferrous 1 tab PO QAM 09/21/19 02/20/22 History fumarate-folic acid 18 mg-400 mcg tablet (Centrum Complete) polyethylene glycol 3350 17 17 g PO QAM 06/11/20 02/20/22 History gram/dose oral powder trazodone 100 mg tablet 200 mg PO HS #180 tab 08/07/20 02/20/22 Rx sodium chloride 7 % for 4 ml INHALATION BID #240 ml 08/28/20 02/20/22 Rx nebulization blood-glucose meter (OneTouch #1 ea 10/22/20 01/31/22 Rx Verio Meter) lancets 30 gauge (OneTouch Delica #100 ea 01/14/21 01/31/22 Rx Plus Lancet) blood sugar diagnostic (OneTouch #150 ea 01/30/21 01/31/22 Rx Verio test strips) Oxygen Home #1 ea 02/04/21 01/31/22 Rx nebulizers #1 ea 05/06/21 01/31/22 Rx pantoprazole 40 mg tablet,delayed 40 mg PO BID #180 tab 05/13/21 02/20/22 Rx release lubiprostone 24 mcg capsule 24 mcg PO BID 90 Days #180 cap 05/22/21 02/20/22 Rx (Amitiza) fluticasone propionate 50 1 spray INTNAS QAM PRN #16 g 06/03/21 02/20/22 Rx mcg/actuation nasal spray,suspension (Flonase Allergy Relief) amlodipine 2.5 mg tablet 2.5 mg PO QAM 06/21/21 02/20/22 History diphenhydramine HCl 25 mg capsule 25 mg PO HS PRN 06/21/21 02/20/22 History (Benadryl) fluticasone fur. 200 mcg-umeclid 1 inh INHALATION QAM 06/21/21 02/20/22 History 62.5 mcg-vilant 25 mcg inhalat.powder (Trelegy Ellipta) glucosamine sulf dipot 1 cap PO QAM 06/21/21 02/20/22 History chlr,msm,chond 550 mg-C 30 mg-pawel 1 mg capsule (Glucosamine Chondroitin) metformin 500 mg tablet,extended 1,000 mg PO BID 06/21/21 02/20/22 History release 24 hr montelukast 10 mg tablet 10 mg PO HS 06/21/21 02/20/22 History (Singulair) Lactobacillus acidophilus and 30 cap PO QAM 08/04/21 02/20/22 History rhamnosus 15 billion cell capsule (Probiotic) Vitamin C And Zinc Tablet 1 tab PO QAM 08/04/21 02/20/22 History calcium polycarbophil 625 mg 3,129 mg PO QAM 08/04/21 02/20/22 History tablet (Fiber (calcium polycarbophil)) cinnamon bark 500 mg capsule 500 mg PO QAM 08/04/21 02/20/22 History (Cinnamon) docusate sodium 100 mg capsule 300 mg PO BID 08/04/21 02/20/22 History (Colace) pvwuajxeuszlb-PR-mwipafefzooop-guaif 20 ml PO UD PRN 08/04/21 02/20/22 History 10 mg-20 mg-650 mg/20 mL oral liq (Mucinex Cold,Flu and Sore Throat) tramadol 50 mg tablet 50 mg PO DAILY PRN 08/04/21 02/20/22 History codeine 10 mg-guaifenesin 100 mg/5 5 ml PO Q6H PRN #236 ml 08/13/21 02/20/22 Rx mL oral liquid ipratropium 0.5 mg-albuterol 3 mg 3 ml INHALATION Q4H PRN #180 ml 08/22/21 02/20/22 Rx (2.5 mg base)/3 mL nebulization soln ropinirole 1 mg tablet 1 mg PO HS #30 tab 10/22/21 02/20/22 Rx famotidine 20 mg tablet 20 mg PO BID #180 tab 12/03/21 02/20/22 Rx gabapentin 300 mg capsule 300 mg PO TID #270 cap 12/16/21 02/20/22 Rx atorvastatin 80 mg tablet 80 mg PO QAM #90 tab 12/19/21 02/20/22 Rx semaglutide 3 mg tablet (Rybelsus) 3 mg PO DAILY #30 tab 12/24/21 02/20/22 Rx albuterol sulfate 90 mcg/actuation 2 puff INHALATION 6XD PRN #8.5 g 12/26/21 02/20/22 Rx aerosol inhaler diclofenac sodium 1 % topical gel 2 g TOP QID PRN #100 g 01/07/22 02/20/22 Rx cyclobenzaprine 10 mg tablet 10 mg PO TID PRN #90 tab 02/04/22 02/20/22 Rx ondansetron 4 mg disintegrating 4 mg PO Q8H PRN #30 tab 02/05/22 02/20/22 Rx tablet hydrocodone 5 mg-acetaminophen 325 2 tab PO Q8H PRN #90 tab 02/17/22 02/20/22 Rx mg tablet naproxen 500 mg tablet 500 mg PO BID PRN #180 tab 02/17/22 02/20/22 Rx Allergies Allergy/AdvReac Type Severity Reaction Status Date / Time house dust Allergy Intermediate Difficulty Verified 02/20/22 15:43 Breathing mold Allergy Intermediate ASTHMA Verified 02/20/22 15:43 ATTACK Past Med/Surg History Medical History Acute pancreatitis Admitted April 2021- had MRCP at that time- recommended EUS six weeks from April admission Aggressive behavior Anxiety Asthma with exacerbation last used inhaler yesterday Chronic constipation COPD (chronic obstructive pulmonary disease) Depression Diabetes type 2, uncontrolled Hgb A1C 04/25/21 was 7.0 Dysphagia DIFFICULTY SWALLOWING MEDS Foot pain rt tendon "problems" GERD (gastroesophageal reflux disease) Hiatal hernia History of ARDS 2009 (ADMITTED TO [facility]-FLIGHTED TO [place]) (SECONDARY TO H1N1 INFECTION)- CONTINUES ON SUPPLEMENTAL OXYGEN History of congestive heart failure 2019 History of ETOH abuse last drink 05-20-20 History of Guillain-Grimstead syndrome DX'D 2009 History of pulmonary embolism 2008 per PCP records - no AC HTN (hypertension) Interstitial lung disease Follows with pulm Lumbar degenerative disc disease Lumbar radiculopathy Mood disorder On home oxygen therapy 2-3L O2 WITH EXERTION AND AT HS Post traumatic stress disorder Pulmonary HTN Restless leg syndrome Surgical History History of anesthesia reaction "I HAVE A HARD TIME BREATHING AFTER ANESTHESIA" History of colonoscopy 2019 History of esophagogastroduodenoscopy (EGD) History of laparoscopic cholecystectomy History of radiofrequency ablation procedure for cardiac arrhythmia 2005-NO F/U CARDIOLOGY History of sinus surgery History of tracheostomy resolved 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 Family History (Updated 02/21/22 @ 09:52 by Enzo Schmidt MD) Grandmother (Paternal) Family history of diabetes mellitus Mother , age 81 of uncertain causes No problems noted. Father , early 50s of lymphoma Lymphoma Other No family history of adverse response to anesthesia No significant family history Social History (Updated 02/21/22 @ 09:54 by Enzo Schmidt MD) Smoking Status: Never smoker Second Hand Exposure: Yes (FATHER SMOKED); Hx Alcohol Use: No ( history of alcohol use and abuse apparently stopping 2 years.) Hx Substance Use: No Preferred Language: Sudanese Communication Ability: Effective Visual Impairment: No Limitations Vp Analytics Required: No Beliefs That Will Affect Care: Restoration Restoration Beliefs: only wants to have a blood transfusion as a last resort marital status: Single Current Living Situation: Alone Current Living Situation Comment: living in hotel current occupational status: disabled 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 Feels Safe at Home: Yes Safety Concerns: Feels Safe At This Time Assistive Devices: Review of Systems A total of 10 systems reviewed and were otherwise negative All systems reviewed & are unremarkable except as noted in HPI & below Physical Exam Vital Signs Vital Signs - 24 hr 02/20/22 13:51 02/20/22 15:23 02/20/22 15:46 Temperature 36.6 C Temperature Source Temporal Artery Scan Pulse Rate 108 H 86 Pulse Rate [Exercises] Pulse Rate [Finger] 88 Pulse Rate from SpO2 Sensor 87 Respiratory Rate 16 18 18 Respiratory Rate [Exercises] Respiratory Effort / Characteristics Non-Labored Blood Pressure 148/101 H Blood Pressure [Right Arm] 162/96 H Blood Pressure Mean 116 Blood Pressure Mean [Right Arm] 118 Pulse Oximetry 94 96 96 Pulse Oximetry [Exercises] Oxygen Delivery Method Room Air Room Air Oxygen Flow Rate Sepsis Recent Fever Within 48 Hours No Sepsis New/Unexplained Change in Mental Status N/A Sepsis Action Taken by Nursing No Action Required Oxygen Flow Rate - Titration Pulse Oximetry Post Tiitration 02/20/22 16:00 02/20/22 16:26 02/20/22 16:41 Temperature Temperature Source Pulse Rate 87 101 H Pulse Rate [Exercises] Pulse Rate [Finger] Pulse Rate from SpO2 Sensor 87 102 H Respiratory Rate 23 22 Respiratory Rate [Exercises] Respiratory Effort / Characteristics Blood Pressure 183/114 H Blood Pressure [Right Arm] Blood Pressure Mean 137 Blood Pressure Mean [Right Arm] Pulse Oximetry 96 88 L 84 L Pulse Oximetry [Exercises] Oxygen Delivery Method Room Air Room Air Oxygen Flow Rate Sepsis Recent Fever Within 48 Hours Sepsis New/Unexplained Change in Mental Status Sepsis Action Taken by Nursing Oxygen Flow Rate - Titration 2 Pulse Oximetry Post Tiitration 96 02/20/22 17:00 02/20/22 17:30 02/20/22 17:39 Temperature Temperature Source Pulse Rate 90 90 Pulse Rate [Exercises] 102 H Pulse Rate [Finger] Pulse Rate from SpO2 Sensor 90 90 Respiratory Rate 17 21 Respiratory Rate [Exercises] 20 Respiratory Effort / Characteristics Blood Pressure Blood Pressure [Right Arm] Blood Pressure Mean Blood Pressure Mean [Right Arm] Pulse Oximetry 91 90 Pulse Oximetry [Exercises] 90 Oxygen Delivery Method Nasal Cannula Nasal Cannula Room Air Oxygen Flow Rate 2 2 Sepsis Recent Fever Within 48 Hours Sepsis New/Unexplained Change in Mental Status Sepsis Action Taken by Nursing Oxygen Flow Rate - Titration Pulse Oximetry Post Tiitration 02/20/22 18:00 02/20/22 18:05 02/20/22 18:30 Temperature Temperature Source Pulse Rate Pulse Rate [Exercises] Pulse Rate [Finger] Pulse Rate from SpO2 Sensor 74 87 92 H Respiratory Rate Respiratory Rate [Exercises] Respiratory Effort / Characteristics Blood Pressure 151/90 H 151/90 H Blood Pressure [Right Arm] Blood Pressure Mean 110 110 Blood Pressure Mean [Right Arm] Pulse Oximetry 97 96 95 Pulse Oximetry [Exercises] Oxygen Delivery Method Nasal Cannula Nasal Cannula Nasal Cannula Oxygen Flow Rate 2 2 2 Sepsis Recent Fever Within 48 Hours Sepsis New/Unexplained Change in Mental Status Sepsis Action Taken by Nursing Oxygen Flow Rate - Titration Pulse Oximetry Post Tiitration 02/20/22 19:00 Temperature 36.9 C Temperature Source Oral Pulse Rate Pulse Rate [Exercises] Pulse Rate [Finger] 81 Pulse Rate from SpO2 Sensor Respiratory Rate 18 Respiratory Rate [Exercises] Respiratory Effort / Characteristics Blood Pressure Blood Pressure [Right Arm] 151/89 H Blood Pressure Mean Blood Pressure Mean [Right Arm] 109 Pulse Oximetry 97 Pulse Oximetry [Exercises] Oxygen Delivery Method Nasal Cannula Oxygen Flow Rate 2 Sepsis Recent Fever Within 48 Hours Sepsis New/Unexplained Change in Mental Status Sepsis Action Taken by Nursing Oxygen Flow Rate - Titration Pulse Oximetry Post Tiitration GENERAL: alert, well appearing, well nourished, no distress, non-toxic, odd affect EYE EXAM: normal conjunctiva, PERRL and EOM's grossly intact OROPHARYNX: no exudate, no erythema, lips, buccal mucosa, and tongue normal and mucous membranes are moist NECK: supple, no nuchal rigidity, no adenopathy, non-tender LUNGS: Clear to auscultation. Normal chest wall mechanics, no w/r/r HEART: no murmurs, S1 normal and S2 normal ABDOMEN: abdomen soft, non-tender, normo-active bowel sounds, no masses, no rebound or guarding. BACK: Back is symmetrical on inspection and there is no deformity, no midline tenderness, no CVA tenderness. SKIN: no rashes and no bruising UPPER EXTREMITIES: upper extremities are grossly normal. FROM, nml pulses b/l. LOWER EXTREMITIES: No pitting edema. FROM, nml pulses b/l. NEURO EXAM: Normal sensorium, cranial nerves II-XII grossly intact, normal sp eech, no gross weakness of arms, no gross weakness of legs. Gross sensation intact. Course Course 1610: Patient updated on results at bedside. She is able to speak in clear coherent sentences and is oriented and able to provide good history. Patient states her difficulty walking and sense of being off balance has been going on for at least a month. She feels a lot of it is related to her ongoing back and hip pain she has been unable to get a previously scheduled injection due to difficulty controlling her blood sugar. Patient then goes on to discuss multiple other ongoing and chronic medical problems. Patient does live alone and has been doing more activity recently as she is moving into a new residence. Patient states she is also very concerned about her elevated blood pressure. Administered Medications Hydrocodone Bitart/Acetaminophen (Hydrocodone/Acetamophen 5/325mg Tab) 2 tab PO Q8H PRN PRN Reason: Severe Pain Stop: 03/06/22 21:45 Last Admin: 02/21/22 13:34 Dose: 2 tab Documented by: [id number] Admin: 02/20/22 22:33 Dose: 2 tab Documented by: [id number] Amlodipine Besylate (Amlodipine Besylate 5 Mg Tab) [facility] [place] Stop: 03/23/22 08:59 Last Admin: 02/21/22 08:46 Dose: 2.5 mg Documented by: [id number] Atorvastatin Calcium (Atorvastatin 40 Mg Tab) 80 [facility] [place] Stop: 03/23/22 08:59 Last Admin: 02/21/22 08:46 Dose: 80 mg Documented by: [id number] Cyclobenzaprine HCl (Cyclobenzaprine Hcl 10 Mg Tab) 10 mg PO TID PRN PRN Reason: muscle spasm Stop: 03/22/22 21:45 Last Admin: 02/21/22 13:34 Dose: 10 mg Documented by: [id number] Diclofenac Sodium (Diclofenac Sod 1% Gel 100 Gm Tube) 2 gm EXT QID PRN; Protocol PRN Reason: Pain Stop: 03/22/22 21:45 Last Admin: 02/21/22 13:34 Dose: 2 gm Documented by: [id number] Admin: 02/21/22 00:39 Dose: 2 gm Documented by: [id number] Docusate Sodium (Docusate Sodium 100 Mg Cap) 100 mg PO BID EN Stop: 03/22/22 21:45 Last Admin: 02/21/22 20:17 Dose: 100 mg Documented by: [id number] Admin: 02/21/22 08:46 Dose: 100 mg Documented by: [id number] Admin: 02/20/22 23:06 Dose: 100 mg Documented by: [id number] Famotidine (Famotidine 20 Mg Tab) 20 mg PO BID EN Stop: 03/22/22 21:45 Last Admin: 02/21/22 20:18 Dose: 20 mg Documented by: [id number] Admin: 02/21/22 08:45 Dose: 20 mg Documented by: [id number] Admin: 02/20/22 23:08 Dose: 20 mg Documented by: [id number] Fluticasone Furoate (Fluticasone Furoate 200mcg 14 Puffs/Inhaler) 1 puffs INH DAILY EN Stop: 03/23/22 08:59 Last Admin: 02/21/22 08:47 Dose: 1 puffs Documented by: [id number] Gabapentin (Gabapentin 300 Mg Cap) 300 mg PO TID EN Stop: 03/22/22 21:45 Last Admin: 02/21/22 20:17 Dose: 300 mg Documented by: [id number] Admin: 02/21/22 15:45 Dose: 300 mg Documented by: [id number] Admin: 02/21/22 08:45 Dose: 300 mg Documented by: [id number] Admin: 02/20/22 23:07 Dose: 300 mg Documented by: [id number] Insulin Aspart (Insulin Aspart Per Unit) 0 units SC ACHS EN Stop: 03/22/22 21:45 Last Admin: 02/21/22 20:20 Dose: Not Given Documented by: [id number] Admin: 02/21/22 17:17 Dose: 6 units Documented by: [id number] Cosigned by: [id number] Admin: 02/21/22 11:57 Dose: Not Given Documented by: [id number] Admin: 02/21/22 08:52 Dose: 3 units Documented by: [id number] Cosigned by: [id number] Admin: 02/20/22 22:33 Dose: 2 units Documented by: [id number] Cosigned by: [id number] Lubiprostone (Lubiprostone 8 Mcg Cap) 24 mcg PO BID EN Stop: 03/22/22 21:45 Last Admin: 02/21/22 20:16 Dose: 24 mcg Documented by: [id number] Admin: 02/21/22 08:45 Dose: 24 mcg Documented by: [id number] Admin: 02/20/22 23:07 Dose: 24 mcg Documented by: [id number] Miscellaneous (Semaglutide [Rybelsus]: Order Awaiting Action) 1 ea N/A QS [facility] Stop: 03/23/22 07:59 Last Admin: 02/21/22 15:45 Dose: Not Given Documented by: [id number] Admin: 02/21/22 08:44 Dose: Not Given Documented by: [id number] Naproxen (Naproxen 250 Mg Tab) 500 mg PO BID PRN PRN Reason: Mild to Moderate pain Stop: 03/22/22 21:45 Last Admin: 02/21/22 08:46 Dose: 500 mg Documented by: [id number] Pantoprazole Sodium (Pantoprazole 40 Mg Tab) 40 mg PO BID [facility] Stop: 03/22/22 21:45 Last Admin: 02/21/22 20:16 Dose: 40 mg Documented by: [id number] Admin: 02/21/22 08:45 Dose: 40 mg Documented by: [id number] Admin: 02/20/22 23:06 Dose: 40 mg Documented by: [id number] Polyethylene Glycol (Polyethylene (Miralax) 17 Gm Pack) 17 gm PO BID EN Stop: 03/22/22 21:45 Last Admin: 02/21/22 20:51 Dose: Not Given Documented by: [id number] Admin: 02/21/22 08:46 Dose: 17 gm Documented by: [id number] Admin: 02/20/22 23:09 Dose: 17 gm Documented by: [id number] Ropinirole HCl (Ropinirole Hcl 1 Mg Tablet) 1 mg PO HS EN Stop: 03/22/22 21:45 Last Admin: 02/21/22 20:17 Dose: 1 mg Documented by: [id number] Admin: 02/20/22 23:08 Dose: 1 mg Documented by: [id number] Trazodone HCl (Trazodone Hcl 100 Mg Tab) 200 mg PO HS EN Stop: 03/22/22 21:45 Last Admin: 02/21/22 20:16 Dose: 200 mg Documented by: [id number] Admin: 02/20/22 23:08 Dose: 200 mg Documented by: [id number] Umeclidinium/Vilanterol (Umeclidinium/Vilanterol 62.5/25mcg 7 Puffs/Inhaler) 1 puffs INH DAILY EN Stop: 03/23/22 08:59 Last Admin: 02/21/22 08:47 Dose: 1 puffs Documented by: [id number] Discontinued Medications Gadobutrol (Gadobutrol 65ml Vial) 7.5 ml IV ONCE ONE Stop: 02/21/22 00:15 Last Admin: 02/21/22 00:14 Dose: 7.5 ml Documented by: [id number] Sodium Chloride (Nss) 500 mls @ 999 mls/hr IV .Q31M EN Stop: 02/20/22 15:00 Last Infusion: 02/20/22 15:50 Dose: 0 mls/hr Documented by: [id number] Admin: 02/20/22 15:19 Dose: 999 mls/hr Documented by: [id number] Magnesium Sulfate/Dextrose (Magnesium Sulfate / D5w) 1 gm in 100 mls @ 100 mls/hr IV NOW STA Stop: 02/20/22 16:11 Last Infusion: 02/20/22 16:20 Dose: 0 mls/hr Documented by: [id number] Admin: 02/20/22 15:19 Dose: 100 mls/hr Documented by: [id number] Sodium Chloride (Nss) 500 mls @ 999 mls/hr IV .Q31M ONE Stop: 02/20/22 16:28 Last Infusion: 02/20/22 17:41 Dose: 0 mls/hr Documented by: [id number] Admin: 02/20/22 17:10 Dose: 999 mls/hr Documented by: [id number] Ceftriaxone Sodium (Rocephin) 2,000 mg in 70 mls @ 140 mls/hr IV NOW STA Stop: 02/20/22 18:12 Last Infusion: 02/20/22 18:42 Dose: 0 mls/hr Documented by: [id number] Admin: 02/20/22 18:07 Dose: 140 mls/hr Documented by: [id number] Ioversol (Optiray 320 125ml) 120 ml IV ONCE ONE Stop: 02/20/22 14:53 Last Admin: 02/20/22 14:53 Dose: 120 ml Documented by: [id number] Lorazepam (Lorazepam 0.5 Mg Tab) 0.5 mg PO NOW STA Stop: 02/20/22 23:19 Last Admin: 02/20/22 23:31 Dose: 0.5 mg Documented by: [id number] Montelukast Sodium (Montelukast Sodium 10 Mg Tablet) 10 mg PO HS EN Stop: 03/22/22 21:45 Last Admin: 02/21/22 21:17 Dose: Not Given Documented by: [id number] Admin: 02/20/22 23:13 Dose: Not Given Documented by: [id number] Polyethylene Glycol/Electrolytes (Lavage Solution 4000ml) 8 dose PO ONE ONE Stop: 02/21/22 14:46 Last Admin: 02/21/22 16:58 Dose: 8 dose Documented by: [id number] Medical Decision Making Differential Diagnosis Differential Diagnosis includes but is not limited to dehydration, stroke, anemia, hypoglycemia, hyponatremia, hypernatremia, urinary tract infection, pneumonia, bronchitis, sepsis, gastroenteritis, additional abdominal pathology, metabolic abnormalities and infections. Medical Records Attestation: I reviewed the patient's medical records. Home Medications Current Medication List: was personally reviewed by me Laboratory Data Attestation: I reviewed the patient's lab results. Result diagrams: 02/21/22 07:46 02/21/22 07:46 Lab Results 02/20/22 02/20/22 02/20/22 Range/Units 14:12 14:12 14:12 WBC 6.46 (4.8-10.8) K/uL RBC 5.04 (4.2-5.4) M/uL Hgb 15.5 (12.0-16.0) g/dL POC Hgb (12.0-16.0) g/dl Hct 45.5 (37-47) % POC Hct (37-47) % MCV 90.3 (80-100) fL MCH 30.8 (25-34) pg MCHC 34.1 (32-36) g/dL RDW Std Deviation 44.3 (36.4-46.3) fL RDW Coeff of Joyce 13.4 (11.5-14.5) % Plt Count 224 (130-400) K/uL MPV 11.2 H (7.4-10.4) fL Immature Gran % (Auto) 0.2 % Neut % (Auto) 39.7 % Lymph % (Auto) 41.0 % [place] % (Auto) 8.4 % Eos % (Auto) 10.2 % Baso % (Auto) 0.5 % Neut # (Auto) 2.57 (1.4-6.5) K/uL Lymph # (Auto) 2.65 (1.2-3.4) K/uL [place] # (Auto) 0.54 (0.11-0.59) K/uL Eos # (Auto) 0.66 H (0-0.5) K/uL Baso # (Auto) 0.03 (0-0.2) K/uL Immature Gran # (Auto) 0.01 (0.00-0.02) K/uL POC Sodium (135-144) mmol/L Sodium 136 (136-145) mmol/L POC Potassium (3.3-5.0) mmol/L Potassium 4.2 (3.5-5.1) mmol/L POC Chloride (101-112) mmol/L Chloride 102 (98-107) mmol/L Carbon Dioxide 26 (21-32) mmol/L POC Total CO2 (24-31) mmol/L Anion Gap 8 (3-11) POC Anion Gap (16-25) mmol/L POC BUN (7-18) mg/dl BUN 16 (6-23) mg/dl Creatinine 0.63 (0.6-1.2) mg/dl POC Creatinine (0.6-1.3) mg/dl Est Cr Clr Drug Dosing 96.5 ml/min Est GFR ( Amer) 116.2 ml/min Est GFR (Non-Af Amer) 100.3 ml/min BUN/Creatinine Ratio 25.4 H (10-20) Glucose 106 H (70-99(Fasting)) mg/dl POC Glucose (other) (70-99) mg/dl Calcium 9.8 (8.5-10.1) mg/dl POC Ioniz Calcium Tyler (1.12-1.32) mmol/l Magnesium (1.7-2.4) mg/dl Total Bilirubin 0.7 (0.2-1.0) mg/dl AST 82 H (13-39) U/L ALT 119 H (7-52) U/L Alkaline Phosphatase 87 (34-104) U/L Ammonia (18-72) umol/L Troponin I High Sens 3.3 (0-14) pg/ml Total Protein 7.4 (6.0-8.3) gm/dl Albumin 4.3 (3.4-5.0) gm/dl Globulin 3.1 (2.5-4.0) gm/dl Albumin/Globulin Ratio 1.4 (0.9-2) TSH 1.622 (0.300-4.500) uIu/ml Urine Color Urine Appearance (Clear) Urine pH (4.5-7.5) Ur Specific [place] (1.000-1.030) Urine Protein (Negative) Urine Glucose (UA) (Negative) Urine Ketones (Negative) Urine Blood (Negative) Urine Nitrite (Negative) Urine Bilirubin (Negative) Urine Urobilinogen (Negative) Ur Leukocyte Esterase (Negative) Urine WBC (Auto) (0-5) /hpf Urine RBC (Auto) (0-4) /hpf U Hyaline Cast (Auto) (0-5) /lpf U Epithel Cells (Auto) (0-5) /lpf Urine Bacteria (Auto) (Negative) SARS-CoV-2, RNA, NAAT (NEGATIVE) 02/20/22 02/20/22 02/20/22 Range/Units 14:17 14:23 15:16 WBC (4.8-10.8) K/uL RBC (4.2-5.4) M/uL Hgb (12.0-16.0) g/dL POC Hgb 15.6 (12.0-16.0) g/dl Hct (37-47) % POC Hct 46 (37-47) % MCV (80-100) fL MCH (25-34) pg MCHC (32-36) g/dL RDW Std Deviation (36.4-46.3) fL RDW Coeff of Joyce (11.5-14.5) % Plt Count (130-400) K/uL MPV (7.4-10.4) fL Immature Gran % (Auto) % Neut % (Auto) % Lymph % (Auto) % [place] % (Auto) % Eos % (Auto) % Baso % (Auto) % Neut # (Auto) (1.4-6.5) K/uL Lymph # (Auto) (1.2-3.4) K/uL [place] # (Auto) (0.11-0.59) K/uL Eos # (Auto) (0-0.5) K/uL Baso # (Auto) (0-0.2) K/uL Immature Gran # (Auto) (0.00-0.02) K/uL POC Sodium 138 (135-144) mmol/L Sodium (136-145) mmol/L POC Potassium 4.2 (3.3-5.0) mmol/L Potassium (3.5-5.1) mmol/L POC Chloride 103 (101-112) mmol/L Chloride (98-107) mmol/L Carbon Dioxide (21-32) mmol/L POC Total CO2 24 (24-31) mmol/L Anion Gap (3-11) POC Anion Gap 16.0 (16-25) mmol/L POC BUN 16 (7-18) mg/dl BUN (6-23) mg/dl Creatinine (0.6-1.2) mg/dl POC Creatinine 0.6 (0.6-1.3) mg/dl Est Cr Clr Drug Dosing ml/min Est GFR ( Amer) ml/min Est GFR (Non-Af Amer) ml/min BUN/Creatinine Ratio (10-20) Glucose (70-99(Fasting)) mg/dl POC Glucose (other) 110 H (70-99) mg/dl Calcium (8.5-10.1) mg/dl POC Ioniz Calcium Tyler 1.24 (1.12-1.32) mmol/l Magnesium 1.6 L (1.7-2.4) mg/dl Total Bilirubin (0.2-1.0) mg/dl AST (13-39) U/L ALT (7-52) U/L Alkaline Phosphatase (34-104) U/L Ammonia (18-72) umol/L Troponin I High Sens (0-14) pg/ml Total Protein (6.0-8.3) gm/dl Albumin (3.4-5.0) gm/dl Globulin (2.5-4.0) gm/dl Albumin/Globulin Ratio (0.9-2) TSH (0.300-4.500) uIu/ml Urine Color Yellow Urine Appearance Clear (Clear) Urine pH 6.0 (4.5-7.5) Ur Specific [place] 1.027 (1.000-1.030) Urine Protein Negative (Negative) Urine Glucose (UA) Negative (Negative) Urine Ketones Negative (Negative) Urine Blood Trace H (Negative) Urine Nitrite Negative (Negative) Urine Bilirubin Negative (Negative) Urine Urobilinogen Negative (Negative) Ur Leukocyte Esterase 3+ H (Negative) Urine WBC (Auto) >30 H (0-5) /hpf Urine RBC (Auto) 0-4 (0-4) /hpf U Hyaline Cast (Auto) 1-5 (0-5) /lpf U Epithel Cells (Auto) >30 H (0-5) /lpf Urine Bacteria (Auto) Negative (Negative) SARS-CoV-2, RNA, NAAT (NEGATIVE) 02/20/22 02/20/22 Range/Units 15:20 18:00 WBC (4.8-10.8) K/uL RBC (4.2-5.4) M/uL Hgb (12.0-16.0) g/dL POC Hgb (12.0-16.0) g/dl Hct (37-47) % POC Hct (37-47) % MCV (80-100) fL MCH (25-34) pg MCHC (32-36) g/dL RDW Std Deviation (36.4-46.3) fL RDW Coeff of Joyce (11.5-14.5) % Plt Count (130-400) K/uL MPV (7.4-10.4) fL Immature Gran % (Auto) % Neut % (Auto) % Lymph % (Auto) % [place] % (Auto) % Eos % (Auto) % Baso % (Auto) % Neut # (Auto) (1.4-6.5) K/uL Lymph # (Auto) (1.2-3.4) K/uL [place] # (Auto) (0.11-0.59) K/uL Eos # (Auto) (0-0.5) K/uL Baso # (Auto) (0-0.2) K/uL Immature Gran # (Auto) (0.00-0.02) K/uL POC Sodium (135-144) mmol/L Sodium (136-145) mmol/L POC Potassium (3.3-5.0) mmol/L Potassium (3.5-5.1) mmol/L POC Chloride (101-112) mmol/L Chloride (98-107) mmol/L Carbon Dioxide (21-32) mmol/L POC Total CO2 (24-31) mmol/L Anion Gap (3-11) POC Anion Gap (16-25) mmol/L POC BUN (7-18) mg/dl BUN (6-23) mg/dl Creatinine (0.6-1.2) mg/dl POC Creatinine (0.6-1.3) mg/dl Est Cr Clr Drug Dosing ml/min Est GFR ( Amer) ml/min Est GFR (Non-Af Amer) ml/min BUN/Creatinine Ratio (10-20) Glucose (70-99(Fasting)) mg/dl POC Glucose (other) (70-99) mg/dl Calcium (8.5-10.1) mg/dl POC Ioniz Calcium [place] (1.12-1.32) mmol/l Magnesium (1.7-2.4) mg/dl Total Bilirubin (0.2-1.0) mg/dl AST (13-39) U/L ALT (7-52) U/L Alkaline Phosphatase (34-104) U/L Ammonia 38.0 (18-72) umol/L Troponin I High Sens (0-14) pg/ml Total Protein (6.0-8.3) gm/dl Albumin (3.4-5.0) gm/dl Globulin (2.5-4.0) gm/dl Albumin/Globulin Ratio (0.9-2) TSH (0.300-4.500) uIu/ml Urine Color Urine Appearance (Clear) Urine pH (4.5-7.5) Ur Specific [place] (1.000-1.030) Urine Protein (Negative) Urine Glucose (UA) (Negative) Urine Ketones (Negative) Urine Blood (Negative) Urine Nitrite (Negative) Urine Bilirubin (Negative) Urine Urobilinogen (Negative) Ur Leukocyte Esterase (Negative) Urine WBC (Auto) (0-5) /hpf Urine RBC (Auto) (0-4) /hpf U Hyaline Cast (Auto) (0-5) /lpf U Epithel Cells (Auto) (0-5) /lpf Urine Bacteria (Auto) (Negative) SARS-CoV-2, RNA, NAAT NEGATIVE (NEGATIVE) Imaging Data Radiologist's Impression: Chest X-Ray 02/20/22 14:23 XR chest 1V portable CLINICAL HISTORY: weakness TECHNIQUE: Single frontal radiograph of the chest was obtained. Comparison: Comparison is made to chest radiograph 12/26/2021 FINDINGS: No lines and tubes are seen. Cardiomegaly is noted. Linear interstitial reticular changes are seen. No evidence of pleural effusion or pneumothorax. IMPRESSION: No acute chest disease. Cardiomegaly is noted. Pulmonary fibrotic changes are seen. ACT 112: Negative or not required by law. Electronically signed by: Nolberto Suh M.D. 02/20/2022 2:[address] 02/20/22 14:23 CT angio neck with con, CT angio head w con, CT head/brain wo con CLINICAL HISTORY: 56 years-old Female with weakness. Acute weakness with strokelike symptoms COMPARISON STUDY: Head CT 05/06/2014, chest radiograph of same day TECHNIQUE: Following the IV administration of 120 mL of Optiray, CT angiogram of the head and neck was performed from the aortic arch to the skull apex. Images are reviewed in the axial, sagittal, and coronal planes. 3-D MIPS images are created and assessed. IV contrast was administered without complication. All measurements were calculated based on NASCET criteria. Noncontrast head CT also obtained. A dose lowering technique was utilized adhering to the principles of ALARA. CT DOSE: 1064.56 mGy.cm FINDINGS: CT HEAD: No acute intracranial hemorrhage, midline shift, abnormal extra-axial collection, hydrocephalus, acute territorial infarct or intracranial mass. Megacisterna magna. Senescent calcifications of the basal ganglia. Nonspecific white matter hypodensities have progressed from the prior study. No acute calvarial fracture through the mastoid air cells and middle ear cavities are clear. Right dusty bullosa. Unremarkable soft tissues and orbits. CTA HEAD AND NECK: Imaged opacified pulmonary arterial tree is unremarkable. Atherosclerosis of the thoracic aortic arch. There is patency of the innominate and imaged subclavian arteries. The common and internal carotid arteries are widely patent. The middle and anterior cerebral arteries are widely patent. The vertebral arteries are codominant and widely patent. Linear focus within the right vertebral artery on image 13 series 5 is favored to be artifact. The basilar and posterior cerebral arteries are patent. No aneurysm, dissection, high-grade stenosis or arterial occlusion. Cerebral venous sinuses are patent. There is no abnormal intracranial enhancement. Emphysema with chronic interstitial lung disease and cardiomegaly redemonstrated. Unremarkable soft tissues of the neck. Multilevel degenerative c hanges of the cervical spine. IMPRESSION: 1. No acute intracranial abnormality. 2. Unremarkable CTA of the head and neck. 3. Moderate nonspecific white matter hypodensities have progressed from the 2014 comparison. The primary differential considerations would include chronic microvascular ischemic disease versus a demyelinating process. 4. Emphysema with chronic interstitial lung disease. ACT 112: Negative or not required by law. The above report was generated using voice recognition software. It may contain grammatical, syntax or spelling errors. Electronically signed by: Johan Fountain M.D. 02/20/2022 3:14 PM Head CTA 02/20/22 14:30 CT angio neck with con, CT angio head w con, CT head/brain wo con CLINICAL HISTORY: 56 years-old Female with weakness. Acute weakness with strokelike symptoms COMPARISON STUDY: Head CT 05/06/2014, chest radiograph of same day TECHNIQUE: Following the IV administration of 120 mL of Optiray, CT angiogram of the head and neck was performed from the aortic arch to the skull apex. Images are reviewed in the axial, sagittal, and coronal planes. 3-D MIPS images are created and assessed. IV contrast was administered without complication. All measurements were calculated based on NASCET criteria. Noncontrast head CT also obtained. A dose lowering technique was utilized adhering to the principles of ALARA. CT DOSE: 1064.56 mGy.cm FINDINGS: CT HEAD: No acute intracranial hemorrhage, midline shift, abnormal extra-axial collection, hydrocephalus, acute territorial infarct or intracranial mass. Megacisterna magna. Senescent calcifications of the basal ganglia. Nonspecific white matter hypodensities have progressed from the prior study. No acute calvarial fracture through the mastoid air cells and middle ear cavities are clear. Right dusty bullosa. Unremarkable soft tissues and orbits. CTA HEAD AND NECK: Imaged opacified pulmonary arterial tree is unremarkable. Atherosclerosis of the thoracic aortic arch. There is patency of the innominate and imaged subclavian arteries. The common and internal carotid arteries are widely patent. The middle and anterior cerebral arteries are widely patent. The vertebral arteries are codominant and widely patent. Linear focus within the right vertebral artery on image 13 series 5 is favored to be artifact. The basilar and posterior cerebral arteries are patent. No aneurysm, dissection, high-grade stenosis or arterial occlusion. Cerebral venous sinuses are patent. There is no abnormal intracranial enhancement. Emphysema with chronic interstitial lung disease and cardiomegaly redemonstrated. Unremarkable soft tissues of the neck. Multilevel degenerative changes of the cervical spine. IMPRESSION: 1. No acute intracranial abnormality. 2. Unremarkable CTA of the head and neck. 3. Moderate nonspecific white matter hypodensities have progressed from the 2014 comparison. The primary differential considerations would include chronic microvascular ischemic disease versus a demyelinating process. 4. Emphysema with chronic interstitial lung disease. ACT 112: Negative or not required by law. The above report was generated using voice recognition software. It may contain grammatical, syntax or spelling errors. Electronically signed by: Johan Fountain M.D. 02/20/2022 3:14 PM Neck CTA 02/20/22 14:30 CT angio neck with con, CT angio head w con, CT head/brain wo con CLINICAL HISTORY: 56 years-old Female with weakness. Acute weakness with strokelike symptoms COMPARISON STUDY: Head CT 05/06/2014, chest radiograph of same day TECHNIQUE: Following the IV administration of 120 mL of Optiray, CT angiogram of the head and neck was performed from the aortic arch to the skull apex. Images are reviewed in the axial, sagittal, and coronal planes. 3-D MIPS images are created and assessed. IV contrast was administered without complication. All measurements were calculated based on NASCET criteria. Noncontrast head CT also obtained. A dose lowering technique was utilized adhering to the principles of ALARA. CT DOSE: 1064.56 mGy.cm FINDINGS: CT HEAD: No acute intracranial hemorrhage, midline shift, abnormal extra-axial collection, hydrocephalus, acute territorial infarct or intracranial mass. Megacisterna magna. Senescent calcifications of the basal ganglia. Nonspecific white matter hypodensities have progressed from the prior study. No acute calvarial fracture through the mastoid air cells and middle ear cavities are clear. Right dusty bullosa. Unremarkable soft tissues and orbits. CTA HEAD AND NECK: Imaged opacified pulmonary arterial tree is unremarkable. Atherosclerosis of the thoracic aortic arch. There is patency of the innominate and imaged subclavian arteries. The common and internal carotid arteries are widely patent. The middle and anterior cerebral arteries are widely patent. The vertebral arteries are codominant and widely patent. Linear focus within the right vertebral artery on image 13 series 5 is favored to be artifact. The basilar and posterior cerebral arteries are patent. No aneurysm, dissection, high-grade stenosis or arterial occlusion. Cerebral venous sinuses are patent. There is no abnormal intracranial enhancement. Emphysema with chronic interstitial lung disease and cardiomegaly re demonstrated. Unremarkable soft tissues of the neck. Multilevel degenerative changes of the cervical spine. IMPRESSION: 1. No acute intracranial abnormality. 2. Unremarkable CTA of the head and neck. 3. Moderate nonspecific white matter hypodensities have progressed from the 2014 comparison. The primary differential considerations would include chronic microvascular ischemic disease versus a demyelinating process. 4. Emphysema with chronic interstitial lung disease. ACT 112: Negative or not required by law. The above report was generated using voice recognition software. It may contain grammatical, syntax or spelling errors. Electronically signed by: Johan Fountain M.D. 02/20/2022 3:14 PM ECG Data Attestation: I personally reviewed and interpreted this ECG as follows: Indication: + weakness Rate (beats per minute): 101 Rhythm: + sinus tachycardia ECG Intervals/blocks: + Normal QRS and + Normal QT ECG [place]: + Left axis deviation ECG ST segments: + Nonspecific ST abnormalities MDM Narrative An order was placed for continuous cardiac monitoring. The monitor shows a rate of _80_ with _normal sinus_ rhythm. This is a 56-year-old female presents emergency department with an aide at bedside due to concern for increased weakness and confusion. Patient states she has not felt well for several days. She had a normal and nonfocal neuro exam at bedside, however was slow to answer questions. Patient initially seen over in D pod as there is no other available bed space as patient presented on day of high volume and acuity. Labs were started, CT imaging ordered. Patient started on IV fluids for rehydration. CT imaging and labs were reassuring. Patient did have mild hypomagnesemia which was repleted. UA eventually collected also, however was suboptimal. Due to abnormalities patient given a dose of antibiotics as a precaution until culture could be resulted. Patient was improved, more alert and oriented at bedside following IV fluids. She still had increased weakness and was uncomfortable being discharged as she lives alone and was concerned for her safety and risk of falls. Dr. Blanchard discussed the case with hospitalist team. Patient does have multiple chronic comorbidities. No other evidence of acute infectious etiology. No evidence for CVA. Impression & Plan Generalized weakness, Confusion, UTI (urinary tract infection), Hypomagnesemia Discharge Plan Visit Data Chief Complaint: Weakness Stated Complaint: SLURRED SPEECH, WEAK, NUMBNESS ED Provider: Benita Cisneros ED Midlevel Provider: Miki Marie Discharge Problem: Generalized weakness, Confusion, UTI (urinary tract infection), Hypomagnesemia Patient Disposition: Admitted As Inpatient Discharge Instructions Interventions: ED Discharge Assessment Last Done: 02/20/22 20:53 Discharge Problem: UTI (urinary tract infection) Qualifiers: Urinary tract infection type: acute cystitis Hematuria presence: without hematuria Qualified Code(s): N30.00 - Acute cystitis without hematuria
[2022-02-20 14:30] LABS: iSTAT Creatinine 0.6 mg/dl (0.6-1.3); iSTAT Hemoglobin 15.6 g/dl (12.0-16.0); iSTAT Ionized Calcium 1.24 mmol/l (1.12-1.32); iSTAT Potassium 4.2 mmol/L (3.3-5.0)
[2022-02-20] MEDS ORDERED: SODIUM CHLORIDE 0.9% 500 ML IV SCH (14:30)
[2022-02-20 14:32] LABS: Basophils # (auto) 0.03 K/uL (0-0.2); Basophils % (auto) 0.5 %; Eosinophils # (auto) 0.66 K/uL (0-0.5); Eosinophils % (auto) 10.2 %; Hematocrit (blood only) 45.5 % (37-47); Hemoglobin 15.5 g/dL (12.0-16.0); Immature Granulocytes # (auto) 0.01 K/uL (0.00-0.02); Immature Granulocytes % (auto) 0.2 %; Lymphocytes # (auto) 2.65 K/uL (1.2-3.4); Mean Corpuscular Hemoglobin 30.8 pg (25-34); Mean Corpuscular Hgb Conc 34.1 g/dL (32-36); Mean Corpuscular Volume 90.3 fL (80-100); Mean Platelet Volume 11.2 fL (7.4-10.4); Monocytes # (auto) 0.54 K/uL (0.11-0.59); Monocytes % (auto) 8.4 %; Neutrophils # (auto) 2.57 K/uL (1.4-6.5); Neutrophils % (auto) 39.7 %; Platelet Count 224 K/uL (130-400); RDW Coefficient of Variation 13.4 % (11.5-14.5); RDW Standard Deviation 44.3 fL (36.4-46.3); Red Blood Count 5.04 M/uL (4.2-5.4); White Blood Count 6.46 K/uL (4.8-10.8)
--- NOTE | 2022-02-20 14:37 | Communication Note ---
Date of Service: February 20, 2022 I was present for the care and planning for this patient. For plan and disposition, please see attending provider's note. Resident Activity Tracking Resident Involvement: Resident Care Provided Care Provided: Adult ED
[2022-02-20 14:46] LABS: Albumin Globulin Ratio 1.4 (0.9-2); Albumin Level 4.3 gm/dl (3.4-5.0); BUN Creatinine Ratio 25.4 (10-20); Bilirubin,Total 0.7 mg/dl (0.2-1.0); Calcium 9.8 mg/dl (8.5-10.1); Creatinine Clr Calc Pharmacy 96.5 ml/min; Est GFR (African American) 116.2 ml/min; Est GFR (Non-African American) 100.3 ml/min; Globulin 3.1 gm/dl (2.5-4.0); Potassium 4.2 mmol/L (3.5-5.1); Total Protein 7.4 gm/dl (6.0-8.3)
--- NOTE | 2022-02-20 14:48 | XRay Report ---
XR chest 1V portable CLINICAL HISTORY: weakness TECHNIQUE: Single frontal radiograph of the chest was obtained. Comparison: Comparison is made to chest radiograph 12/26/2021 FINDINGS: No lines and tubes are seen. Cardiomegaly is noted. Linear interstitial reticular changes are seen. N o evidence of pleural effusion or pneumothorax. IMPRESSION: No acute chest disease. Cardiomegaly is noted. Pulmonary fibrotic changes are seen. ACT 112: Negative or not required by law. Electronically signed by: Nolberto Suh M.D. 02/20/2022 2:46 PM
[2022-02-20 14:52] LABS: Troponin I High Sensitivity 3.3 pg/ml (0-14)
[2022-02-20] MEDS ORDERED: OPTIRAY 320 125ml IV ONE (14:52)
[2022-02-20] MEDS ORDERED: MAGNESIUM SULFATE / D5W 1 GM/100 ML BAG IV STA (15:12)
--- NOTE | 2022-02-20 15:17 | CT Scan Report ---
CT angio neck with con, CT angio head w con, CT head/brain wo con CLINICAL HISTORY: 56 years-old Female with weakness. Acute weakness with strokelike symptoms COMPARISON STUDY: Head CT 05/06/2014, chest radiograph of same day TECHNIQUE: Following the IV administration of 120 mL of Optiray, CT angiogram of the head and neck wa s performed from the aortic arch to the skull apex. Images are reviewed in the axial, sagittal, and c oronal planes. 3-D MIPS images are created and assessed. IV contrast was administered without complic ation. All measurements were calculated based on NASCET criteria. Noncontrast head CT also obtained. A dose lowering technique was utilized adhering to the principles of ALARA. CT DOSE: 1064.56 mGy.cm FINDINGS: CT HEAD: No acute intracranial hemorrhage, midline shift, abnormal extra-axial collection, hydrocephalus, acut e territorial infarct or intracranial mass. Megacisterna magna. Senescent calcifications of the basal ganglia. Nonspecific white matter hypodensities have progressed from the prior study. No acute sharon rial fracture through the mastoid air cells and middle ear cavities are clear. Right dusty bullosa. Unremarkable soft tissues and orbits. CTA HEAD AND NECK: Imaged opacified pulmonary arterial tree is unremarkable. Atherosclerosis of the thoracic aortic arch . There is patency of the innominate and imaged subclavian arteries. The common and internal carotid arteries are widely patent. The middle and anterior cerebral arteries are widely patent. The vertebra l arteries are codominant and widely patent. Linear focus within the right vertebral artery on image 13 series 5 is favored to be artifact. The basilar and posterior cerebral arteries are patent. No ane urysm, dissection, high-grade stenosis or arterial occlusion. Cerebral venous sinuses are patent. The re is no abnormal intracranial enhancement. Emphysema with chronic interstitial lung disease and cardiomegaly redemonstrated. Unremarkable soft t issues of the neck. Multilevel degenerative changes of the cervical spine. IMPRESSION: 1. No acute intracranial abnormality. 2. Unremarkable CTA of the head and neck. 3. Moderate nonspecific white matter hypodensities have progressed from the 2014 comparison. The prim [place] differential considerations would include chronic microvascular ischemic disease versus a demyeli nating process. 4. Emphysema with chronic interstitial lung disease. ACT 112: Negative or not required by law. The above report was generated using voice recognition software. It may contain grammatical, syntax o r spelling errors. Electronically signed by: Johan Fountain M.D. 02/20/2022 3:14 PM
[2022-02-20 15:44] LABS: Appearance Urine Clear (Clear); Bacteria Urine Automated Negative (Negative); Bilirubin Urine Negative (Negative); Blood Urine Trace (Negative); Color Urine Yellow; Epithelial Cell Urine Auto >30 /lpf (0-5); Glucose Urine UA Negative (Negative); Ketones Urine Negative (Negative); Leukocyte Esterase Urine 3+ (Negative); Nitrite Urine Negative (Negative); Protein Urine Negative (Negative); RBC Urine Automated 0-4 /hpf (0-4); Specific Gravity Urine 1.027 (1.000-1.030); Urobilinogen Urine Negative (Negative); WBC Urine Automated >30 /hpf (0-5)
[2022-02-20] MEDS ORDERED: SODIUM CHLORIDE 0.9% 500 ML IV ONE (15:58)
[2022-02-20] MEDS ORDERED: cefTRIAXone SODIUM 2,000 MG/70 ML BAG IV STA (17:43)
--- NOTE | 2022-02-20 18:50 | History & Physical Report ---
Date of Service February 20, 2022 Assessment & Plan (1) Weakness: Plan: Pippa Schmitt is a 56-year-old female with past medical history of Gilbert's syndrome, avascular necrosis, hypertension, pulmonary fibrosis, hyperlipidemia, asthma, and type 2 diabetes; who presented for concerns of intermittent confusion over the last several days. Weakness/dysphagia: -Patient has been stumbling over the last several days -Strength improved in emergency department -Concern for TIA or stroke -CT head, CTA head and CTA neck demonstrating no acute intracranial abnormality, unremarkable angiogram; nonspecific white matter hypodensities progressed as compared to 2014 -tPA not indicated given timeline of presentation -Weakness/dysphagia potentially complicated by polypharmacy; PDMP demonstrating 90 [place] 5 mg every 15 days in addition to tramadol, Flexeril, trazodone, chilo onin, Requip, gabapentin -PT/OT consulted -MRI in a.m. -Lipid profile in a.m. -A1c in a.m. Chronic opiate use: -Likely complicating weakness/dysphagia presenting symptoms -Continue [place] 5-10mg q8h as needed for moderate to severe pain Hypertension: -Hypertensive on admission to -Home regimen of amlodipine 2.5 mg daily -Consider alteration of home antihypertensive regimen to ANNA/ARB in the setting of type 2 diabetes hyperlipidemia and TIA concerns Type 2 diabetes: -Home regimen of metformin 1000 mg twice daily, Rybelsus 3 mg daily -Last A1c November 2021 of 7.0 -Carb consistent diet ordered -Hold oral metformin -Sliding scale insulin -BSG's ACHS Hyperlipidemia: -Continue home regimen of atorvastatin 80 mg daily -Recheck lipid profile in a.m. Interstitial lung disease: -Continue home inhaler regimen Diet: Heart healthy/carb consistent CODE STATUS: Full code DVT prophylaxis: Deferred at this time in the setting of concern for TIA/acute stroke (2) Dysphagia: (3) Hypertension complicating diabetes: (4) Lumbar degenerative disc disease: (5) Diabetes type 2, uncontrolled: (6) Dyslipidemia: (7) Interstitial lung disease: (8) Chronic prescription opiate use: History of Present Illness Primary Care Provider: Tyrell Mancini MD Pippa Schmitt is a 56-year-old female with past medical history of Gilbert's syndrome, avascular necrosis, hypertension, pulmonary fibrosis, hyperlipidemia, asthma, and type 2 diabetes; who presented for concerns of intermittent confus ion over the last several days. Of note had 2 episodes over the last 3 days in which she felt she was stumbling around and was able unable to talk properly, first 1 was 2 days ago in which her landlord discovered her walking around tripping stumbling but she was nonsensical at that point time discussed with her aide and ultimately she just needed more sleep. This then happened again earlier today while at a grocery store, ultimately called her primary care provider who instructed her to present to the emergency room for evaluation given this recurrence. Presently denies any changes in sensation of head arm and/or legs; feels like her legs are weaker but this has been the case since her fall several weeks ago and reactivation of the bursitis in her knee. Has no changes in vision or double vision. She feels like this is been happening more frequently as a result of urinary tract infections that she has been feeling over the last several months; has not been treated for urinary tract infection or been evaluated for this Notes that this did happen previously when she had a elevated blood sugar as well as when she had elevated blood pressures. Notes no abdominal discomfort, has not had a bowel movement in greater than 12 days but feels this has part of her normal bowel regimen. Notes that she has been having increased mouth dryness over the last several weeks. Allergies Allergy/AdvReac Type Severity Reaction Status Date / Time house dust Allergy Intermediate Difficulty Verified 02/20/22 15:43 Breathing mold Allergy Intermediate ASTHMA Verified 02/20/22 15:43 ATTACK Home Medications Medication Instructions Recorded Confirmed Type melatonin 10 mg tablet 10 mg PO HS PRN 07/05/18 02/20/22 History multivitamin-ferrous 1 tab PO QAM 09/21/19 02/20/22 History fumarate-folic acid 18 mg-400 mcg tablet (Centrum Complete) polyethylene glycol 3350 17 17 g PO QAM 06/11/20 02/20/22 History gram/dose oral powder trazodone 100 mg tablet 200 mg PO HS #180 tab 08/07/20 02/20/22 Rx sodium chloride 7 % for 4 ml INHALATION BID #240 ml 08/28/20 02/20/22 Rx nebulization blood-glucose meter (OneTouch #1 ea 10/22/20 01/31/22 Rx Verio Meter) lancets 30 gauge (OneTouch Delica #100 ea 01/14/21 01/31/22 Rx Plus Lancet) [facility] 01/30/21 01/31/22 Rx Verio test strips) Oxygen Home #1 ea 02/04/21 01/31/22 Rx nebulizers #1 ea 05/06/21 01/31/22 Rx pantoprazole 40 mg tablet,delayed 40 mg PO BID #180 tab 05/13/21 02/20/22 Rx release lubiprostone 24 mcg capsule 24 mcg PO BID 90 Days #180 cap 05/22/21 02/20/22 Rx (Amitiza) fluticasone propionate 50 1 spray INTNAS QAM PRN #16 g 06/03/21 02/20/22 Rx mcg/actuation nasal spray,suspension (Flonase Allergy Relief) amlodipine 2.5 mg tablet 2.5 mg PO QAM 06/21/21 02/20/22 History diphenhydramine HCl 25 mg capsule 25 mg PO HS PRN 06/21/21 02/20/22 History (Benadryl) fluticasone fur. 200 mcg-umeclid 1 inh INHALATION QAM 06/21/21 02/20/22 History 62.5 mcg-vilant 25 mcg inhalat.powder (Trelegy Ellipta) glucosamine sulf dipot 1 cap PO QAM 06/21/21 02/20/22 History chlr,msm,chond 550 mg-C 30 mg-pawel 1 mg capsule (Glucosamine Chondroitin) metformin 500 mg tablet,extended 1,000 mg PO BID 06/21/21 02/20/22 History release 24 hr montelukast 10 mg tablet 10 mg PO HS 06/21/21 02/20/22 History (Singulair) Lactobacillus acidophilus and 30 cap PO QAM 08/04/21 02/20/22 History rhamnosus 15 billion cell capsule (Probiotic) Vitamin C And Zinc Tablet 1 tab PO QAM 08/04/21 02/20/22 History calcium polycarbophil 625 mg 3,129 mg PO QAM 08/04/21 02/20/22 History tablet (Fiber (calcium polycarbophil)) cinnamon bark 500 mg capsule 500 mg PO QAM 08/04/21 02/20/22 History (Cinnamon) docusate sodium 100 mg capsule 300 mg PO BID 08/04/21 02/20/22 History (Colace) jguavdjgphkcq-DR-crdviigotzbri-guaif 20 ml PO UD PRN 08/04/21 02/20/22 History 10 mg-20 mg-650 mg/20 mL oral liq (Mucinex Cold,Flu and Sore Throat) tramadol 50 mg tablet 50 mg PO DAILY PRN 08/04/21 02/20/22 History codeine 10 mg-guaifenesin 100 mg/5 5 ml PO Q6H PRN #236 ml 08/13/21 02/20/22 Rx mL oral liquid ipratropium 0.5 mg-albuterol 3 mg 3 ml INHALATION Q4H PRN #180 ml 08/22/21 02/20/22 Rx (2.5 mg base)/3 mL nebulization soln ropinirole 1 mg tablet 1 mg PO HS #30 tab 10/22/21 02/20/22 Rx famotidine 20 mg tablet 20 mg PO BID #180 tab 12/03/21 02/20/22 Rx gabapentin 300 mg capsule 300 mg PO TID #270 cap 12/16/21 02/20/22 Rx atorvastatin 80 mg tablet 80 mg PO QAM #90 tab 12/19/21 02/20/22 Rx semaglutide 3 mg tablet (Rybelsus) 3 mg PO DAILY #30 tab 12/24/21 02/20/22 Rx albuterol sulfate 90 mcg/actuation 2 puff INHALATION 6XD PRN #8.5 g 12/26/21 02/20/22 Rx aerosol inhaler diclofenac sodium 1 % topical gel 2 g TOP QID PRN #100 g 01/07/22 02/20/22 Rx cyclobenzaprine 10 mg tablet 10 mg PO TID PRN #90 tab 02/04/22 02/20/22 Rx ondansetron 4 mg disintegrating 4 mg PO Q8H PRN #30 tab 02/05/22 02/20/22 Rx tablet hydrocodone 5 mg-acetaminophen 325 2 tab PO Q8H PRN #90 tab 02/17/22 02/20/22 Rx mg tablet naproxen 500 mg tablet 500 mg PO BID PRN #180 tab 02/17/22 02/20/22 Rx Past Med/Surg History Medical History Acute pancreatitis Admitted April 2021- had MRCP at that time- recommended EUS six weeks from April admission Aggressive behavior Anxiety Asthma with exacerbation last used inhaler yesterday Chronic constipation COPD (chronic obstructive pulmonary disease) Depression Diabetes type 2, uncontrolled Hgb A1C 04/25/21 was 7.0 Dysphagia DIFFICULTY SWALLOWING MEDS Foot pain rt tendon "problems" GERD (gastroesophageal reflux disease) Hiatal hernia History of ARDS 2009 (ADMITTED TO [facility] TO [place]) (SECONDARY TO H1N1 INFECTION)- CONTINUES ON SUPPLEMENTAL OXYGEN History of congestive heart failure 2019 History of ETOH abuse last drink 05-20-20 History of Guillain-Napavine syndrome DX'D 2009 History of pulmonary embolism 2008 per PCP records - no AC HTN (hypertension) Interstitial lung disease Follows with pulm Lumbar degenerative disc disease Lumbar radiculopathy Mood disorder On home oxygen therapy 2-3L O2 WITH EXERTION AND AT HS Post traumatic stress disorder Pulmonary HTN Restless leg syndrome Surgical History History of anesthesia reaction "I HAVE A HARD TIME BREATHING AFTER ANESTHESIA" History of colonoscopy 2019 History of esophagogastroduodenoscopy (EGD) History of laparoscopic cholecystectomy History of radiofrequency ablation procedure for cardiac arrhythmia 2005-NO F/U CARDIOLOGY History of sinus surgery History of tracheostomy resolved 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 Family History Grandmother (Paternal) Family history of diabetes mellitus Other No family history of adverse response to anesthesia No significant family history Social History Smoking Status: Never smoker Second Hand Exposure: Yes (FATHER SMOKED); Hx Alcohol Use: No Hx Substance Use: Yes Preferred Language: Finnish Communication Ability: Effective Visual Impairment: No Limitations Sand Bobber Required: No Beliefs That Will Affect Care: None and Orthodoxy Orthodoxy Beliefs: RELIGION-NO BLOOD PRODUCTS marital status: Single Current Living Situation: Alone Current Living Situation Comment: living in hotel current occupational status: disabled Feels Safe at Home: Yes Assistive Devices: Glasses Review of Systems Review of Systems: All systems reviewed & are unremarkable except as noted in HPI & below Physical Exam Constitutional: WD/WN, vitals as above Eyes: PERRL, conjunctivae normal, anicteric sclerae Respiratory: normal respiratory effort, lungs clear to auscultation Auscultation: no crackles, no rales, no rhonchi and no wheezes Cardiovascular: Rate/Rhythm: regular rate and regular rhythm Heart Sounds: no gallop, no murmur and no cardiac rub Vessels: normal peripheral pulses; no JVD Extremities: no edema Gastrointestinal (Abdomen): Inspection/Auscultation: normal bowel sounds; abdomen not distended Percussion/Palpation: abdomen soft; abdomen nontender and no guarding Musculoskeletal: no cyanosis or clubbing, extremities motor strength 5/5 Skin: no rashes, warm and dry Neurologic: PERRL, EOMI, accommodation nl, no face palsy, no dysarthria CN's II-XI intact bilaterally and moves all extremities Psychiatric: Orientation: alert and oriented x 3 Results & Data Results & Data ([facility]) Vital Signs (Past 12 Hours) Vital Signs Temp Pulse Pulse Pulse Resp Resp BP 02/20/22 18:30 02/20/22 18:05 151/90 H 02/20/22 18:00 151/90 H 02/20/22 17:39 102 H 20 02/20/22 17:30 90 21 02/20/22 17:00 90 17 02/20/22 16:41 02/20/22 16:26 101 H 22 183/114 H 02/20/22 16:00 87 23 02/20/22 15:46 86 18 02/20/22 15:23 88 18 02/20/22 13:51 36.6 C 108 H 16 148/101 H BP Pulse Ox Pulse Ox 02/20/22 18:30 95 02/20/22 18:05 96 02/20/22 18:00 97 02/20/22 17:39 90 02/20/22 17:30 90 02/20/22 17:00 91 02/20/22 16:41 84 L 02/20/22 16:26 88 L 02/20/22 16:00 96 02/20/22 15:46 96 02/20/22 15:23 162/96 H 96 02/20/22 13:51 94 Laboratory Results 06/09/22 06/09/22 06/09/22 Range/Units 18:00 15:20 15:16 WBC (4.8-10.8) K/uL RBC (4.2-5.4) M/uL Hgb (12.0-16.0) g/dL POC Hgb (12.0-16.0) g/dl Hct (37-47) % POC Hct (37-47) % MCV (80-100) fL MCH (25-34) pg MCHC (32-36) g/dL RDW Std Deviation (36.4-46.3) fL RDW Coeff of Joyce (11.5-14.5) % Plt Count (130-400) K/uL MPV (7.4-10.4) fL Immature Gran % (Auto) % Neut % (Auto) % Lymph % (Auto) % [place] % (Auto) % Eos % (Auto) % Baso % (Auto) % Neut # (Auto) (1.4-6.5) K/uL Lymph # (Auto) (1.2-3.4) K/uL [place] # (Auto) (0.11-0.59) K/uL Eos # (Auto) (0-0.5) K/uL Baso # (Auto) (0-0.2) K/uL Immature Gran # (Auto) (0.00-0.02) K/uL POC Sodium (135-144) mmol/L Sodium (136-145) mmol/L POC Potassium (3.3-5.0) mmol/L Potassium (3.5-5.1) mmol/L POC Chloride (101-112) mmol/L Chloride (98-107) mmol/L Carbon Dioxide (21-32) mmol/L POC Total CO2 (24-31) mmol/L Anion Gap (3-11) POC Anion Gap (16-25) mmol/L POC BUN (7-18) mg/dl BUN (6-23) mg/dl Creatinine (0.6-1.2) mg/dl POC Creatinine (0.6-1.3) mg/dl Est Cr Clr Drug Dosing ml/min Est GFR ( Amer) ml/min Est GFR (Non-Af Amer) ml/min BUN/Creatinine Ratio (10-20) Glucose (70-99(Fasting)) mg/dl POC Glucose (other) (70-99) mg/dl Calcium (8.5-10.1) mg/dl POC Ioniz Calcium Tyler (1.12-1.32) mmol/l Magnesium (1.7-2.4) mg/dl Total Bilirubin (0.2-1.0) mg/dl AST (13-39) U/L ALT (7-52) U/L Alkaline Phosphatase (34-104) U/L Ammonia 38.0 (18-72) umol/L Troponin I High Sens (0-14) pg/ml Total Protein (6.0-8.3) gm/dl Albumin (3.4-5.0) gm/dl Globulin (2.5-4.0) gm/dl Albumin/Globulin Ratio (0.9-2) TSH (0.300-4.500) uIu/ml Urine Color Yellow Urine Appearance Clear (Clear) Urine pH 6.0 (4.5-7.5) Ur Specific Filer 1.027 (1.000-1.030) Urine Protein Negative (Negative) Urine Glucose (UA) Negative (Negative) Urine Ketones Negative (Negative) Urine Blood Trace H (Negative) Urine Nitrite Negative (Negative) Urine Bilirubin Negative (Negative) Urine Urobilinogen Negative (Negative) Ur Leukocyte Esterase 3+ H (Negative) Urine WBC (Auto) >30 H (0-5) /hpf Urine RBC (Auto) 0-4 (0-4) /hpf U Hyaline Cast (Auto) 1-5 (0-5) /lpf U Epithel Cells (Auto) >30 H (0-5) /lpf Urine Bacteria (Auto) Negative (Negative) SARS-CoV-2, RNA, NAAT NEGATIVE (NEGATIVE) 02/20/22 02/20/22 02/20/22 Range/Units 14:23 14:17 14:12 WBC (4.8-10.8) K/uL RBC (4.2-5.4) M/uL Hgb (12.0-16.0) g/dL POC Hgb 15.6 (12.0-16.0) g/dl Hct (37-47) % POC Hct 46 (37-47) % MCV (80-100) fL MCH (25-34) pg MCHC (32-36) g/dL RDW Std Deviation (36.4-46.3) fL RDW Coeff of Joyce (11.5-14.5) % Plt Count (130-400) K/uL MPV (7.4-10.4) fL Immature Gran % (Auto) % Neut % (Auto) % Lymph % (Auto) % [place] % (Auto) % Eos % (Auto) % Baso % (Auto) % Neut # (Auto) (1.4-6.5) K/uL Lymph # (Auto) (1.2-3.4) K/uL [place] # (Auto) (0.11-0.59) K/uL Eos # (Auto) (0-0.5) K/uL Baso # (Auto) (0-0.2) K/uL Immature Gran # (Auto) (0.00-0.02) K/uL POC Sodium 138 (135-144) mmol/L Sodium (136-145) mmol/L POC Potassium 4.2 (3.3-5.0) mmol/L Potassium (3.5-5.1) mmol/L POC Chloride 103 (101-112) mmol/L Chloride (98-107) mmol/L Carbon Dioxide (21-32) mmol/L POC Total CO2 24 (24-31) mmol/L Anion Gap (3-11) POC Anion Gap 16.0 (16-25) mmol/L POC BUN 16 (7-18) mg/dl BUN (6-23) mg/dl Creatinine (0.6-1.2) mg/dl POC Creatinine 0.6 (0.6-1.3) mg/dl Est Cr Clr Drug Dosing ml/min Est GFR ( Amer) ml/min Est GFR (Non-Af Amer) ml/min BUN/Creatinine Ratio (10-20) Glucose (70-99(Fasting)) mg/dl POC Glucose (other) 110 H (70-99) mg/dl Calcium (8.5-10.1) mg/dl POC Ioniz Calcium Tyler 1.24 (1.12-1.32) mmol/l Magnesium 1.6 L (1.7-2.4) mg/dl Total Bilirubin (0.2-1.0) mg/dl AST (13-39) U/L ALT (7-52) U/L Alkaline Phosphatase (34-104) U/L Ammonia (18-72) umol/L Troponin I High Sens (0-14) pg/ml Total Protein (6.0-8.3) gm/dl Albumin (3.4-5.0) gm/dl Globulin (2.5-4.0) gm/dl Albumin/Globulin Ratio (0.9-2) TSH 1.622 (0.300-4.500) uIu/ml Urine Color Urine Appearance (Clear) Urine pH (4.5-7.5) Ur Specific Filer (1.000-1.030) Urine Protein (Negative) Urine Glucose (UA) (Negative) Urine Ketones (Negative) Urine Blood (Negative) Urine Nitrite (Negative) Urine Bilirubin (Negative) Urine Urobilinogen (Negative) Ur Leukocyte Esterase (Negative) Urine WBC (Auto) (0-5) /hpf Urine RBC (Auto) (0-4) /hpf U Hyaline Cast (Auto) (0-5) /lpf U Epithel Cells (Auto) (0-5) /lpf Urine Bacteria (Auto) (Negative) SARS-CoV-2, RNA, NAAT (NEGATIVE) 02/20/22 02/20/22 Range/Units 14:12 14:12 WBC 6.46 (4.8-10.8) K/uL RBC 5.04 (4.2-5.4) M/uL Hgb 15.5 (12.0-16.0) g/dL POC Hgb (12.0-16.0) g/dl Hct 45.5 (37-47) % POC Hct (37-47) % MCV 90.3 (80-100) fL MCH 30.8 (25-34) pg MCHC 34.1 (32-36) g/dL RDW Std Deviation 44.3 (36.4-46.3) fL RDW Coeff of Joyce 13.4 (11.5-14.5) % Plt Count 224 (130-400) K/uL MPV 11.2 H (7.4-10.4) fL Immature Gran % (Auto) 0.2 % Neut % (Auto) 39.7 % Lymph % (Auto) 41.0 % [place] % (Auto) 8.4 % Eos % (Auto) 10.2 % Baso % (Auto) 0.5 % Neut # (Auto) 2.57 (1.4-6.5) K/uL Lymph # (Auto) 2.65 (1.2-3.4) K/uL [place] # (Auto) 0.54 (0.11-0.59) K/uL Eos # (Auto) 0.66 H (0-0.5) K/uL Baso # (Auto) 0.03 (0-0.2) K/uL Immature Gran # (Auto) 0.01 (0.00-0.02) K/uL POC Sodium (135-144) mmol/L Sodium 136 (136-145) mmol/L POC Potassium (3.3-5.0) mmol/L Potassium 4.2 (3.5-5.1) mmol/L POC Chloride (101-112) mmol/L Chloride 102 (98-107) mmol/L Carbon Dioxide 26 (21-32) mmol/L POC Total CO2 (24-31) mmol/L Anion Gap 8 (3-11) POC Anion Gap (16-25) mmol/L POC BUN (7-18) mg/dl BUN 16 (6-23) mg/dl Creatinine 0.63 (0.6-1.2) mg/dl POC Creatinine (0.6-1.3) mg/dl Est Cr Clr Drug Dosing 96.5 ml/min Est GFR ( Amer) 116.2 ml/min Est GFR (Non-Af Amer) 100.3 ml/min BUN/Creatinine Ratio 25.4 H (10-20) Glucose 106 H (70-99(Fasting)) mg/dl POC Glucose (other) (70-99) mg/dl Calcium 9.8 (8.5-10.1) mg/dl POC Ioniz Calcium Tyler (1.12-1.32) mmol/l Magnesium (1.7-2.4) mg/dl Total Bilirubin 0.7 (0.2-1.0) mg/dl AST 82 H (13-39) U/L ALT 119 H (7-52) U/L Alkaline Phosphatase 87 (34-104) U/L Ammonia (18-72) umol/L Troponin I High Sens 3.3 (0-14) pg/ml Total Protein 7.4 (6.0-8.3) gm/dl Albumin 4.3 (3.4-5.0) gm/dl Globulin 3.1 (2.5-4.0) gm/dl Albumin/Globulin Ratio 1.4 (0.9-2) TSH (0.300-4.500) uIu/ml Urine Color Urine Appearance (Clear) Urine pH (4.5-7.5) Ur Specific Filer (1.000-1.030) Urine Protein (Negative) Urine Glucose (UA) (Negative) Urine Ketones (Negative) Urine Blood (Negative) Urine Nitrite (Negative) Urine Bilirubin (Negative) Urine Urobilinogen (Negative) Ur Leukocyte Esterase (Negative) Urine WBC (Auto) (0-5) /hpf Urine RBC (Auto) (0-4) /hpf U Hyaline Cast (Auto) (0-5) /lpf U Epithel Cells (Auto) (0-5) /lpf Urine Bacteria (Auto) (Negative) SARS-CoV-2, RNA, NAAT (NEGATIVE) Diagnostic Findings Impressions Chest X-Ray 02/20/22 14:23 XR chest 1V portable CLINICAL HISTORY: weakness TECHNIQUE: Single frontal radiograph of the chest was obtained. Comparison: Comparison is made to chest radiograph 12/26/2021 FINDINGS: No lines and tubes are seen. Cardiomegaly is noted. Linear interstitial reticular changes are seen. No evidence of pleural effusion or pneumothorax. IMPRESSION: No acute chest disease. Cardiomegaly is noted. Pulmonary fibrotic changes are seen. ACT 112: Negative or not required by law. Electronically signed by: Nolberto Suh M.D. 02/20/2022 2:[address] 02/20/22 14:23 CT angio neck with con, CT angio head w con, CT head/brain wo con CLINICAL HISTORY: 56 years-old Female with weakness. Acute weakness with strokelike symptoms COMPARISON STUDY: Head CT 05/06/2014, chest radiograph of same day TECHNIQUE: Following the IV administration of 120 mL of Optiray, CT angiogram of the head and neck was performed from the aortic arch to the skull apex. Images are reviewed in the axial, sagittal, and coronal planes. 3-D MIPS images are created and assessed. IV contrast was administered without complication. All measurements were calculated based on NASCET criteria. Noncontrast head CT also obtained. A dose lowering technique was utilized adhering to the principles of ALARA. CT DOSE: 1064.56 mGy.cm FINDINGS: CT HEAD: No acute intracranial hemorrhage, midline shift, abnormal extra-axial collection, hydrocephalus, acute territorial infarct or intracranial mass. Megacisterna magna. Senescent calcifications of the basal ganglia. Nonspecific white matter hypodensities have progressed from the prior study. No acute calvarial fracture through the mastoid air cells and middle ear cavities are clear. Right dusty bullosa. Unremarkable soft tissues and orbits. CTA HEAD AND NECK: Imaged opacified pulmonary arterial tree is unremarkable. Atherosclerosis of the thoracic aortic arch. There is patency of the innominate and imaged subclavian arteries. The common and internal carotid arteries are widely patent. The middle and anterior cerebral arteries are widely patent. The vertebral arteries are codominant and widely patent. Linear focus within the right vertebral artery on image 13 series 5 is favored to be artifact. The basilar and posterior cerebral arteries are patent. No aneurysm, dissection, high-grade stenosis or arterial occlusion. Cerebral venous sinuses are patent. There is no abnormal intracranial enhancement. Emphysema with chronic interstitial lung disease and cardiomegaly redemonstrated. Unremarkable soft tissues of the neck. Multilevel degenerative changes of the cervical spine. IMPRESSION: 1. No acute intracranial abnormality. 2. Unremarkable CTA of the head and neck. 3. Moderate nonspecific white matter hypodensities have progressed from the 2014 comparison. The primary differential considerations would include chronic microvascular ischemic disease versus a demyelinating process. 4. Emphysema with chronic interstitial lung disease. ACT 112: Negative or not required by law. The above report was generated using voice recognition software. It may contain grammatical, syntax or spelling errors. Electronically signed by: Johan Fountain M.D. 02/20/2022 3:14 PM Head CTA 02/20/22 14:30 CT angio neck with con, CT angio head w con, CT head/brain wo con CLINICAL HISTORY: 56 years-old Female with weakness. Acute weakness with strokelike symptoms COMPARISON STUDY: Head CT 05/06/2014, chest radiograph of same day TECHNIQUE: Following the IV administration of 120 mL of Optiray, CT angiogram of the head and neck was performed from the aortic arch to the skull apex. Images are reviewed in the axial, sagittal, and coronal planes. 3-D MIPS images are created and assessed. IV contrast was administered without complication. All measurements were calculated based on NASCET criteria. Noncontrast head CT also obtained. A dose lowering technique was utilized adhering to the principles of ALARA. CT DOSE: 1064.56 mGy.cm FINDINGS: CT HEAD: No acute intracranial hemorrhage, midline shift, abnormal extra-axial collection, hydrocephalus, acute territorial infarct or intracranial mass. Megacisterna magna. Senescent calcifications of the basal ganglia. Nonspecific white matter hypodensities have progressed from the prior study. No acute calvarial fracture through the mastoid air cells and middle ear cavities are clear. Right dusty bullosa. Unremarkable soft tissues and orbits. CTA HEAD AND NECK: Imaged opacified pulmonary arterial tree is unremarkable. Atherosclerosis of the thoracic aortic arch. There is patency of the innominate and imaged subclavian arteries. The common and internal carotid arteries are widely patent. The middle and anterior cerebral arteries are widely patent. The vertebral arteries are codominant and widely patent. Linear focus within the right vertebral artery on image 13 series 5 is favored to be artifact. The basilar and posterior cerebral arteries are patent. No aneurysm, dissection, high-grade stenosis or arterial occlusion. Cerebral venous sinuses are patent. There is no abnormal intracranial enhancement. Emphysema with chronic interstitial lung disease and cardiomegaly redemonstrated. Unremarkable soft tissues of the neck. Multilevel degenerative changes of the cervical spine. IMPRESSION: 1. No acute intracranial abnormality. 2. Unremarkable CTA of the head and neck. 3. Moderate nonspecific white matter hypodensities have progressed from the 2014 comparison. The primary differential considerations would include chronic microvascular ischemic disease versus a demyelinating process. 4. Emphysema with chronic interstitial lung disease. ACT 112: Negative or not required by law. The above report was generated using voice recognition software. It may contain grammatical, syntax or spelling errors. Electronically signed by: Johan Fountain M.D. 02/20/2022 3:14 PM Neck CTA 02/20/22 14:30 CT angio neck with con, CT angio head w con, CT head/brain wo con CLINICAL HISTORY: 56 years-old Female with weakness. Acute weakness with strokelike symptoms COMPARISON STUDY: Head CT 05/06/2014, chest radiograph of same day TECHNIQUE: Following the IV administration of 120 mL of Optiray, CT angiogram of the head and neck was performed from the aortic arch to the skull apex. Images are reviewed in the axial, sagittal, and coronal planes. 3-D MIPS images are created and assessed. IV contrast was administered without complication. All measurements were calculated based on NASCET criteria. Noncontrast head CT also obtained. A dose lowering technique was utilized adhering to the principles of ALARA. CT DOSE: 1064.56 mGy.cm FINDINGS: CT HEAD: No acute intracranial hemorrhage, midline shift, abnormal extra-axial collection, hydrocephalus, acute territorial infarct or intracranial mass. Megacisterna magna. Senescent calcifications of the basal ganglia. Nonspecific white matter hypodensities have progressed from the prior study. No acute calvarial fracture through the mastoid air cells and middle ear cavities are clear. Right dusty bullosa. Unremarkable soft tissues and orbits. CTA HEAD AND NECK: Imaged opacified pulmonary arterial tree is unremarkable. Atherosclerosis of the thoracic aortic arch. There is patency of the innominate and imaged subclavian arteries. The common and internal carotid arteries are widely patent. The middle and anterior cerebral arteries are widely patent. The vertebral arteries are codominant and widely patent. Linear focus within the right vertebral artery on image 13 series 5 is favored to be artifact. The basilar and posterior cerebral arteries are patent. No aneurysm, dissection, high-grade stenosis or arterial occlusion. Cerebral venous sinuses are patent. There is no abnormal intracranial enhancement. Emphysema with chronic interstitial lung disease and cardiomegaly redemonstrated. Unremarkable soft tissues of the neck. Multilevel degenerative changes of the cervical spine. IMPRESSION: 1. No acute intracranial abnormality. 2. Unremarkable CTA of the head and neck. 3. Moderate nonspecific white matter hypodensities have progressed from the 2014 comparison. The primary differential considerations would include chronic microvascular ischemic disease versus a demyelinating process. 4. Emphysema with chronic interstitial lung disease. ACT 112: Negative or not required by law. The above report was generated using voice recognition software. It may contain grammatical, syntax or spelling errors. Electronically signed by: Johan Fountain M.D. 02/20/2022 3:14 PM Medications Administered Home Medication List Medication Instructions Recorded melatonin 10 mg tablet 10 mg PO HS PRN 07/05/18 multivitamin-ferrous 1 tab PO QAM 09/21/19 fumarate-folic acid 18 mg-400 mcg tablet (Centrum Complete) polyethylene glycol 3350 17 17 g PO QAM 06/11/20 gram/dose oral powder trazodone 100 mg tablet 200 mg PO HS #180 tab 08/07/20 sodium chloride 7 % for 4 ml INHALATION BID #240 ml 08/28/20 nebulization blood-glucose meter (OneTouch #1 ea 10/22/20 Verio Meter) lancets 30 gauge (OneTouch Delica #100 ea 01/14/21 Plus Lancet) blood sugar diagnostic (OneTouch #150 ea 01/30/21 Verio test strips) Oxygen Home #1 ea 02/04/21 nebulizers #1 ea 05/06/21 pantoprazole 40 mg tablet,delayed 40 mg PO BID #180 tab 05/13/21 release lubiprostone 24 mcg capsule 24 mcg PO BID 90 Days #180 cap 05/22/21 (Amitiza) fluticasone propionate 50 1 spray INTNAS QAM PRN #16 g 06/03/21 mcg/actuation nasal spray,suspension (Flonase Allergy Relief) amlodipine 2.5 mg tablet 2.5 mg PO QAM 06/21/21 diphenhydramine HCl 25 mg capsule 25 mg PO HS PRN 06/21/21 (Benadryl) fluticasone fur. 200 mcg-umeclid 1 inh INHALATION QAM 06/21/21 62.5 mcg-vilant 25 mcg inhalat.powder (Trelegy Ellipta) glucosamine sulf dipot 1 cap PO QAM 06/21/21 chlr,msm,chond 550 mg-C 30 mg-pawel 1 mg capsule (Glucosamine Chondroitin) metformin 500 mg tablet,extended 1,000 mg PO BID 06/21/21 release 24 hr montelukast 10 mg tablet 10 mg PO HS 06/21/21 (Singulair) Lactobacillus acidophilus and 30 cap PO QAM 08/04/21 rhamnosus 15 billion cell capsule (Probiotic) Vitamin C And Zinc Tablet 1 tab PO QAM 08/04/21 calcium polycarbophil 625 mg 3,129 mg PO QAM 08/04/21 tablet (Fiber (calcium polycarbophil)) cinnamon bark 500 mg capsule 500 mg PO QAM 08/04/21 (Cinnamon) docusate sodium 100 mg capsule 300 mg PO BID 08/04/21 (Colace) agpjpnbdmkwtb-EV-egupbrdzmefku-guaif 20 ml PO UD PRN 08/04/21 10 mg-20 mg-650 mg/20 mL oral liq (Mucinex Cold,Flu and Sore Throat) tramadol 50 mg tablet 50 mg PO DAILY PRN 08/04/21 codeine 10 mg-guaifenesin 100 mg/5 5 ml PO Q6H PRN #236 ml 08/13/21 mL oral liquid ipratropium 0.5 mg-albuterol 3 mg 3 ml INHALATION Q4H PRN #180 ml 08/22/21 (2.5 mg base)/3 mL nebulization soln ropinirole 1 mg tablet 1 mg PO HS #30 tab 10/22/21 famotidine 20 mg tablet 20 mg PO BID #180 tab 12/03/21 gabapentin 300 mg capsule 300 mg PO TID #270 cap 12/16/21 atorvastatin 80 mg tablet 80 mg PO QAM #90 tab 12/19/21 semaglutide 3 mg tablet (Rybelsus) 3 mg PO DAILY #30 tab 12/24/21 albuterol sulfate 90 mcg/actuation 2 puff INHALATION 6XD PRN #8.5 g 12/26/21 aerosol inhaler diclofenac sodium 1 % topical gel 2 g TOP QID PRN #100 g 01/07/22 cyclobenzaprine 10 mg tablet 10 mg PO TID PRN #90 tab 02/04/22 ondansetron 4 mg disintegrating 4 mg PO Q8H PRN #30 tab 02/05/22 tablet hydrocodone 5 mg-acetaminophen 325 2 tab PO Q8H PRN #90 tab 02/17/22 mg tablet naproxen 500 mg tablet 500 mg PO BID PRN #180 tab 02/17/22 Supervising Physician Co-Signing Physician Notes Patient seen and examined. I did discuss with the resident and agree with his note above. This is a 56-year-old female who presents with ataxia and confusion observed by her home health nurse licensed practical. Patient is somewhat scattered historian, complaining of chronic pain in multiple areas, she is on significant amounts of narcotics for these and may not be straightforward with the amount she takes daily. She also notes that she has been feeling foggy and somewhat forgetful/confused. Exam as noted above. I will plan to observe overnight. Work-up for TIA as noted. PT/OT evaluation. Consideration should be given to adjusting patient's medications, possibly weaning oral narcotics or for starting low-dose longer acting pain medications. Resident Activity Tracking Resident Involvement: Resident Care Provided Care Provided: [facility]
[2022-02-20] MEDS ORDERED: GLUCOSE 10 TABS/TUBE PO PRN (21:46)
[2022-02-20] MEDS ORDERED: FLUTICASONE PROPIONATE NA SPR 16 GM BTL PRN (21:46)
[2022-02-20] MEDS ORDERED: ALUMINUM/MAGNESIUM SUSP 30 ML UDC PO PRN (21:46)
[2022-02-20] MEDS ORDERED: NITROGLYCERIN SL 0.4 MG/TAB TAB SL PRN (21:46)
[2022-02-20] MEDS ORDERED: MELATONIN 3 MG TAB PO PRN (21:46)
[2022-02-20] MEDS ORDERED: ONDANSETRON INJ 2 MG/ML 2 ML VIAL IV PRN (21:46)
[2022-02-20] MEDS ORDERED: GLUCAGON FOR INJ 1 MG VIAL SQ PRN (21:46)
[2022-02-20] MEDS ORDERED: CARBOHYDRATES FOR HYPOGLYCEMIA PO PRN (21:46)
[2022-02-20] MEDS ORDERED: ACETAMINOPHEN 325 MG TAB PO PRN (21:46)
[2022-02-20] MEDS ORDERED: ONDANSETRON 4 MG OD TAB PO PRN (21:46)
[2022-02-20] MEDS ORDERED: DEXTROSE 50% 50 ML SYRINGE IV PRN (21:46)
[2022-02-20] MEDS ORDERED: GLUCOSE 40% GEL 15 GM TUBE PO PRN (21:46)
[2022-02-20] MEDS ORDERED: PHARMACIST DISCHARGE MED REC CONSULT PRN (21:46)
[2022-02-20] MEDS ORDERED: MAGNESIUM HYDROXIDE SUSP 30 ML UDC PO PRN (21:46)
[2022-02-20] MEDS: INSULIN ASPART PER UNIT SC SCH (22:33)
[2022-02-20] MEDS: HYDROCODONE/ACETAMOPHEN 5/325MG TAB PO PRN (22:33)
[2022-02-20] MEDS: PANTOprazole 40 MG TAB PO SCH (23:06)
[2022-02-20] MEDS: DOCUSATE SODIUM 100 MG CAP PO SCH (23:06)
[2022-02-20] MEDS: GABAPENTIN 300 MG CAP PO SCH (23:07)
[2022-02-20] MEDS: LUBIPROSTONE 8 MCG CAP PO SCH (23:07)
[2022-02-20] MEDS: FAMOTIDINE 20 MG TAB PO SCH (23:08)
[2022-02-20] MEDS: traZODone HCL 100 MG TAB PO SCH (23:08)
[2022-02-20] MEDS: rOPINIRole HCL 1 MG TABLET PO SCH (23:08)
[2022-02-20] MEDS: POLYETHYLENE (MIRALAX) 17 GM PACK PO SCH (23:09)
[2022-02-20] MEDS: MONTELUKAST SODIUM 10 MG TABLET PO SCH (23:13)
[2022-02-20] MEDS ORDERED: LORazepam 0.5 MG TAB PO STA (23:18)
[2022-02-21] MEDS ORDERED: GADOBUTROL 65ML VIAL IV ONE (00:14)
[2022-02-21] MEDS: DICLOFENAC SOD 1% GEL 100 GM TUBE EXT PRN ×2 (00:39→13:34)
--- NOTE | 2022-02-21 07:40 | Magnetic Resonance Report ---
MRI OF THE BRAIN COMBO CLINICAL HISTORY: Generalized weakness. Dysphagia. COMPARISON STUDY: CT of the brain dated 02/20/2022. MRI of the brain dated 10/08/2011. TECHNIQUE: MRI of the brain was performed utilizing various T1 and T2-weighted sequences in the axial , sagittal, and coronal planes. Contrast-enhanced sequences were acquired following the administratio n of 7.5 cc of Gadavist. FINDINGS: Brain parenchyma: There is mild involutional change There are numerous foci of T2 signal abnormality seen throughout the subcortical and periventricular white matter. There is no associated abnormal pos tcontrast enhancement. There is no hemorrhage or mass effect. There is no restricted diffusion to sug gest acute ischemia. No enhancing mass lesion is identified on the postcontrast images. Spence-white ma tter differentiation is preserved. No extra-axial fluid collection is seen. The cerebellar tonsils ar e normal in configuration. Ventricles, sulci, and cisterns: Normal in configuration. Pituitary and sella: Unremarkable. Intracranial vasculature: Normal flow voids are maintained at the skull base. Orbits: The bony orbits are grossly intact. Orbital contents are normal in appearance. Sinuses and mastoids: There is trace mucosal thickening within the sphenoid sinuses. The remaining pa ranasal sinuses and the mastoid air cells are clear. Calvarium: Unremarkable. Cervical cord: Partially visualized cervical spinal cord is normal in morphology and signal intensity . IMPRESSION: 1. There is no hemorrhage, enhancing mass, or evidence of acute ischemia. 2. There are numerous foci of T2 signal abnormality seen throughout the subcortical and periventricul ar white matter. There is no corresponding abnormal postcontrast enhancement and this may represent a ge advanced microangiopathic change. This has significantly progressed as compared to 2012, and could also be seen with a demyelinating process such as multiple sclerosis or possibly Lyme disease. Clini rosy correlation will be essential. ACT 112: Negative or not required by law. Electronically signed by: Johan Rogers M.D. 02/21/2022 7:39 AM
[2022-02-21 08:19] LABS: Basophils # (auto) 0.03 K/uL (0-0.2); Basophils % (auto) 0.4 %; Eosinophils # (auto) 0.65 K/uL (0-0.5); Eosinophils % (auto) 9.4 %; Hematocrit (blood only) 43.1 % (37-47); Hemoglobin 14.5 g/dL (12.0-16.0); Immature Granulocytes # (auto) 0.01 K/uL (0.00-0.02); Immature Granulocytes % (auto) 0.1 %; Lymphocytes # (auto) 2.08 K/uL (1.2-3.4); Lymphocytes % (auto) 30.1 %; Mean Corpuscular Hemoglobin 30.5 pg (25-34); Mean Corpuscular Hgb Conc 33.6 g/dL (32-36); Mean Corpuscular Volume 90.7 fL (80-100); Mean Platelet Volume 10.9 fL (7.4-10.4); Monocytes # (auto) 0.57 K/uL (0.11-0.59); Monocytes % (auto) 8.3 %; Neutrophils # (auto) 3.56 K/uL (1.4-6.5); Neutrophils % (auto) 51.7 %; Platelet Count 221 K/uL (130-400); RDW Coefficient of Variation 13.4 % (11.5-14.5); RDW Standard Deviation 44.2 fL (36.4-46.3); Red Blood Count 4.75 M/uL (4.2-5.4)
[2022-02-21 08:43] LABS: BUN Creatinine Ratio 26.9 (10-20); Creatinine Clr Calc Pharmacy 117.7 ml/min; Est GFR (African American) 123.8 ml/min; Est GFR (Non-African American) 106.8 ml/min; Potassium 4.1 mmol/L (3.5-5.1)
[2022-02-21 08:44] LABS: Calcium 8.9 mg/dl (8.5-10.1); Chol HDL Ratio 3.1 (0-5); Magnesium 1.8 mg/dl (1.7-2.4); Phosphorus 3.8 mg/dl (2.5-4.9)
[2022-02-21] MEDS: FAMOTIDINE 20 MG TAB PO SCH ×2 (08:45→20:18)
[2022-02-21] MEDS: LUBIPROSTONE 8 MCG CAP PO SCH ×2 (08:45→20:16)
[2022-02-21] MEDS: GABAPENTIN 300 MG CAP PO SCH ×3 (08:45→20:17)
[2022-02-21] MEDS: PANTOprazole 40 MG TAB PO SCH ×2 (08:45→20:16)
[2022-02-21] MEDS: NAPROXEN 250 MG TAB PO PRN (08:46)
[2022-02-21] MEDS: POLYETHYLENE (MIRALAX) 17 GM PACK PO SCH ×3 (08:46→20:51)
[2022-02-21] MEDS: ATORVASTATIN 40 MG TAB PO SCH (08:46)
[2022-02-21] MEDS: DOCUSATE SODIUM 100 MG CAP PO SCH ×2 (08:46→20:17)
[2022-02-21] MEDS: amLODIPine BESYLATE 5 MG TAB PO SCH (08:46)
[2022-02-21] MEDS: FLUTICASONE FUROATE 200MCG 14 PUFFS/INHALER INH SCH (08:47)
[2022-02-21] MEDS: UMECLIDINIUM/VILANTEROL 62.5/25MCG 7 PUFFS/INHALER INH SCH (08:47)
[2022-02-21] MEDS: INSULIN ASPART PER UNIT SC SCH ×4 (08:52→20:20)
[2022-02-21] MEDS ORDERED: NON-FORMULARY MEDICATION (Fluticasone-Umeclidin-Vilanter [Trelegy Ellipta] 200-62.5-25 mcg INH SCH (09:00)
--- NOTE | 2022-02-21 09:26 | Neurology Consultation ---
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 She had acute pancreatitis I year ago and continues to have significant medical problems including hypertension and diabetes. She has chronic pain in her spine and limbs and takes multiple medications including narcotics and muscle relaxers. Recently she has had 2 episodes of confusion and abnormal gait. Although she has a history of chronic alcohol use and abuse in the past, apparently she has not had any alcohol use in the last 2 years. Both of these episodes were self- limited and currently she has no focal neurologic findings, meningeal signs, or encephalopathy on exam. I suspect she may have a right lumbosacral radiculopathy creating the right lower extremity weakness and pain. The absent actual reflexes are likely secondary to a polyneuropathy ( from diabetes ). I do not see anything on exam that represents "left over" from Guillain-[place] syndrome in the past. MRI of the brain showed no acute stroke and CT angiography showed no arterial stenosis. The MRI showed moderate old small vessel ischemic changes (progressed from 2011) likely due to chronic changes from uncontrolled hypertension and diabetes over the years. There is no history or findings consistent with a demyelinating disease such as multiple sclerosis. Therefore, there was no stroke and I am not even certain that her symptoms represent a true TIA. The patient has a history of psychiatric issues with anxiety and depression on medication currently. This seems relatively stable as best as I can tell. Recommendations: 1. Control blood pressure, as you are doing, aiming for a mean arterial pressure of approximately 100. 2. Control glucose as you are doing 3. Patient technically would be a high dose statin candidate however her total cholesterol and triglycerides are fairly low on current medication. 4. consider initiating 81 mg aspirin tablet daily for stroke prevention. 5. Evaluate for urinary tract infection 6. I could follow as an outpatient regarding her chronic pain and consider EMG nerve conduction studies to evaluate for neuropathy, myopathy, or radiculopathy. Overall, I spent a total of 90 minutes with this case including review of records, review of MRI films, direct evaluation of the patient at bedside, and discussion of the case with the patient and RN at bedside, and Dr. Garcia including differential diagnosis and treatment options. History of Present Illness Reason for Consultation: patient is a 56-year-old, who I was asked to see at the request of Dr. Garcia, for neurologic consultation regarding acute confusion and ataxia Requesting Physician: Dr. Garcia Attending Physician: Daniel Garcia MD History of Present Illness this patient has a history of severe respiratory infection ( H 1 and 1) starting in July of 2009. She had the having ARDS and requiring a mechanical ventilator and tracheostomy. Sometime in early 2009 she was transferred 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 She had a very protracted recovery and was left with weakness and cognitive changes as a result. In September of [address] Robertson who noted her chronic pain and limb symptoms. EMG nerve conduction studies of the legs revealed no neuropathy, myopathy, or radiculopathy. MRI of the brain showed a few scattered nonspecific white matter spots an MRI of the cervical spine showed some mild degenerative changes of a nonspecific nature, without significant spinal stenosis. Throughout the years the patient has had a number of issues with excessive alcohol use, and anxiety/depression. She currently carries a diagnosis of hepatitis-C, COPD /asthma, pulmonary hypertension, dyslipidemia, hypertension, diabetes, and history of congestive heart failure. She has chronic pain and takes hydrocodone, cyclobenzaprine, diclofenac gel, Naprosyn, trazodone 200 mg at bedtime, tramadol as needed, and gabapentin 300 mg 3 times a day. She has been having longstanding and not adequately controlled hypertension and diabetes. she continued using and abusing alcohol over the years quitting apparently about 2 years ago. More recently she has been having trouble sleeping and has had fatigue during the day. She has constipation and chronic pain. Patient has had some significant right lower extremity pain and weakness over the last year so. MRI of the lumbar spine in December of 2020 revealed disc protrusion to the right at L4-5, somewhat progressed compared to 2018. there was [id number] spinal stenosis at L4-5. She was told by Orthopedics that she was not a surgical candidate due to her many other medical conditions. She tells me that she has been off gabapentin and only restarted it 1 week ago. On February 18, the patient states that she had an episode ( sudden onset) of confusion and staggering that evening. It lasted about 5 hours and then resolved. February 19 she was asymptomatic. On February 20 she woke up around noon and her aide found that she was confused and again staggering /not walking well. She arrived emergency room February 20 at 1:51 p.m., with a temperature of 36.6, pulse 108, blood pressure 148/101, respiratory rate 16, and O2 saturation 94%. She was described as having a nonfocal exam and her mental status was reasonable. The patient believes that her confusion and gait problems did not clear until later that evening. CBC and Chem profile were largely unremarkable. AST was 82 and ALT 119. She has had elevated liver enzymes this year. TSH was normal at 1.6. Chest x-ray was unremarkable. CT scan of the head was unremarkable. CT angiography of the head and neck showed no vascular anomalies or stenosis. MRI of the brain with without contrast showed increased white matter spots of a small nonspecific nature ( moderate about) increased from 2011. there was no enhancement. This morning the patient feels closer to baseline with her mental status. She had slight bifrontal headache earlier this morning but this resolved. She has some tingling in her fingertips which is better than yesterday. She has no vision problems or incontinence. She does have chronic neck and low back pain. Allergies Allergy/AdvReac Type Severity Reaction Status Date / Time house dust Allergy Intermediate Difficulty Verified 02/20/22 15:43 Breathing mold Allergy Intermediate ASTHMA Verified 02/20/22 15:43 ATTACK Home Medications Medication Instructions Recorded Confirmed Type melatonin 10 mg tablet 10 mg PO HS PRN 07/05/18 02/20/22 History multivitamin-ferrous 1 tab PO QAM 09/21/19 02/20/22 History fumarate-folic acid 18 mg-400 mcg tablet (Centrum Complete) polyethylene glycol 3350 17 17 g PO QAM 06/11/20 02/20/22 History gram/dose oral powder trazodone 100 mg tablet 200 mg PO HS #180 tab 08/07/20 02/20/22 Rx sodium chloride 7 % for 4 ml INHALATION BID #240 ml 08/28/20 02/20/22 Rx nebulization blood-glucose meter (OneTouch #1 ea 10/22/20 01/31/22 Rx Verio Meter) lancets 30 gauge (OneTouch Delica #100 ea 01/14/21 01/31/22 Rx Plus Lancet) blood sugar diagnostic ([facility] ea 01/30/21 01/31/22 Rx Verio test strips) Oxygen Home #1 ea 02/04/21 01/31/22 Rx nebulizers #1 ea 05/06/21 01/31/22 Rx pantoprazole 40 mg tablet,delayed 40 mg PO BID #180 tab 05/13/21 02/20/22 Rx release lubiprostone 24 mcg capsule 24 mcg PO BID 90 Days #180 cap 05/22/21 02/20/22 Rx (Amitiza) fluticasone propionate 50 1 spray INTNAS QAM PRN #16 g 06/03/21 02/20/22 Rx mcg/actuation nasal spray,suspension (Flonase Allergy Relief) amlodipine 2.5 mg tablet 2.5 mg PO QAM 06/21/21 02/20/22 History diphenhydramine HCl 25 mg capsule 25 mg PO HS PRN 06/21/21 02/20/22 History (Benadryl) fluticasone fur. 200 mcg-umeclid 1 inh INHALATION QAM 06/21/21 02/20/22 History 62.5 mcg-vilant 25 mcg inhalat.powder (Trelegy Ellipta) glucosamine sulf dipot 1 cap PO QAM 06/21/21 02/20/22 History chlr,msm,chond 550 mg-C 30 mg-pawel 1 mg capsule (Glucosamine Chondroitin) metformin 500 mg tablet,extended 1,000 mg PO BID 06/21/21 02/20/22 History release 24 hr montelukast 10 mg tablet 10 mg PO HS 06/21/21 02/20/22 History (Singulair) Lactobacillus acidophilus and 30 cap PO QAM 08/04/21 02/20/22 History rhamnosus 15 billion cell capsule (Probiotic) Vitamin C And Zinc Tablet 1 tab PO QAM 08/04/21 02/20/22 History calcium polycarbophil 625 mg 3,129 mg PO QAM 08/04/21 02/20/22 History tablet (Fiber (calcium polycarbophil)) cinnamon bark 500 mg capsule 500 mg PO QAM 08/04/21 02/20/22 History (Cinnamon) docusate sodium 100 mg capsule 300 mg PO BID 08/04/21 02/20/22 History (Colace) hdqbiykeejlmt-CN-vkzxmaqykahxy-guaif 20 ml PO UD PRN 08/04/21 02/20/22 History 10 mg-20 mg-650 mg/20 mL oral liq (Mucinex Cold,Flu and Sore Throat) tramadol 50 mg tablet 50 mg PO DAILY PRN 08/04/21 02/20/22 History codeine 10 mg-guaifenesin 100 mg/5 5 ml PO Q6H PRN #236 ml 08/13/21 02/20/22 Rx mL oral liquid ipratropium 0.5 mg-albuterol 3 mg 3 ml INHALATION Q4H PRN #180 ml 08/22/21 02/20/22 Rx (2.5 mg base)/3 mL nebulization soln ropinirole 1 mg tablet 1 mg PO HS #30 tab 10/22/21 02/20/22 Rx famotidine 20 mg tablet 20 mg PO BID #180 tab 12/03/21 02/20/22 Rx gabapentin 300 mg capsule 300 mg PO TID #270 cap 12/16/21 02/20/22 Rx atorvastatin 80 mg tablet 80 mg PO QAM #90 tab 12/19/21 02/20/22 Rx semaglutide 3 mg tablet (Rybelsus) 3 mg PO DAILY #30 tab 12/24/21 02/20/22 Rx albuterol sulfate 90 mcg/actuation 2 puff INHALATION 6XD PRN #8.5 g 12/26/21 02/20/22 Rx aerosol inhaler diclofenac sodium 1 % topical gel 2 g TOP QID PRN #100 g 01/07/22 02/20/22 Rx cyclobenzaprine 10 mg tablet 10 mg PO TID PRN #90 tab 02/04/22 02/20/22 Rx ondansetron 4 mg disintegrating 4 mg PO Q8H PRN #30 tab 02/05/22 02/20/22 Rx tablet hydrocodone 5 mg-acetaminophen 325 2 tab PO Q8H PRN #90 tab 02/17/22 02/20/22 Rx mg tablet naproxen 500 mg tablet 500 mg PO BID PRN #180 tab 02/17/22 02/20/22 Rx Patient History Medical History Acute pancreatitis Admitted April 2021- had MRCP at that time- recommended EUS six weeks from April admission Aggressive behavior Anxiety Asthma with exacerbation last used inhaler yesterday Chronic constipation COPD (chronic obstructive pulmonary disease) Depression Diabetes type 2, uncontrolled Hgb A1C 04/25/21 was 7.0 Dysphagia DIFFICULTY SWALLOWING MEDS Foot pain rt tendon "problems" GERD (gastroesophageal reflux disease) Hiatal hernia History of ARDS 2009 (ADMITTED TO [facility] [place]) (SECONDARY TO H1N1 INFECTION)- CONTINUES ON SUPPLEMENTAL OXYGEN History of congestive heart failure 2019 History of ETOH abuse last drink 05-20-20 History of Guillain-[place] syndrome DX'D 2009 History of pulmonary embolism 2008 per PCP records - no AC HTN (hypertension) Interstitial lung disease Follows with pulm Lumbar degenerative disc disease Lumbar radiculopathy Mood disorder On home oxygen therapy 2-3L O2 WITH EXERTION AND AT HS Post traumatic stress disorder Pulmonary HTN Restless leg syndrome Surgical History History of anesthesia reaction "I HAVE A HARD TIME BREATHING AFTER ANESTHESIA" History of colonoscopy 2019 History of esophagogastroduodenoscopy (EGD) History of laparoscopic cholecystectomy History of radiofrequency ablation procedure for cardiac arrhythmia 2005-NO F/U CARDIOLOGY History of sinus surgery History of tracheostomy resolved 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 Family History (Updated 02/21/22 @ 09:52 by Enzo Schmidt MD) Grandmother (Paternal) Family history of diabetes mellitus Mother , age 81 of uncertain causes No problems noted. Father , early 50s of lymphoma Lymphoma Other No family history of adverse response to anesthesia No significant family history Social History (Updated 02/21/22 @ 09:54 by Enzo Schmidt MD) Smoking Status: Never smoker Second Hand Exposure: Yes (FATHER SMOKED); Hx Alcohol Use: No ( history of alcohol use and abuse apparently stopping 2 years.) Hx Substance Use: No Preferred Language: Greenlandic Communication Ability: Effective Visual Impairment: No Limitations Supply Room Clerk Required: No Beliefs That Will Affect Care: Baptism Baptism Beliefs: only wants to have a blood transfusion as a last resort marital status: Single Current Living Situation: Alone Current Living Situation Comment: living in hotel current occupational status: disabled 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 Feels Safe at Home: Yes Safety Concerns: Feels Safe At This Time Assistive Devices: Oxygen - at Night and Oxygen - Continuous Review of Systems Constitutional: + fatigue and + weakness; no fever Eyes: no diplopia, no eye pain and no worsening vision Ear, Nose, Mouth, Throat: no ear pain, no tinnitus, no hearing loss, no d izziness, no snoring, no hoarseness and no dysphagia Respiratory: + dyspnea; no cough Cardiovascular: no chest pain, no palpitations and no lightheadedness Gastrointestinal: no abdominal pain, no nausea and no vomiting Genitourinary: no dysuria, no urinary frequency and no urinary incontinence Musculoskeletal: + back pain and + neck pain; no radicular pain, no joint pain and no myalgia Integumentary: no rash and no lesions Neurologic: + localized weakness, + generalized weakness and + memory loss; no gait abnormality, no tingling, no numbness, no tremor(s), no abnormal movements, no headache(s), no abnormal speech and no confusion Psychiatric: + depression and + anxiety; no irritability, no difficulty concentrating, no confusion and no hallucinations Endocrine: no fatigue and no flushing Hematologic / Lymphatic: no easy bleeding and no easy bruising Allergy / Immunological: no urticaria and no problem reported Exam (Neuro) Physical Exam: The patient is left-handed. The patient is awake, alert, and attentive. Speech is normal without any aphasia or dysarthria. The patient can name objects, repeat phrases, and has normal spontaneous speech. Mentation and thought processes are intact, with orientation to person, place and time, and normal fund of knowledge. Attention and concentration are normal. Mood and affect are normal and appropriate. General appearance and grooming are normal. Short and long-term memory are intact to conversation. Pupils are 4 mm bilaterally and reactive to light. Extraocular eye muscles are intact without nystagmus. Visual acuity and visual miranda seem normal grossly to confrontation. There are no deficits to sensation in the face in all 3 distributions of the fifth cranial nerve bilaterally. Corneal reflexes are positive bilaterally. Facial strength and symmetry was normal bilaterally. Hearing seems normal bilaterally. Palate moves well without asymmetry. There is normal sternocleidomastoid and trapezius (shoulder shrug) strength bilaterally. Tongue is midline with good strength bilaterally. Neck has a full range of motion without discomfort. There are no cervical bruits bilaterally. There are no cranial or ocular bruits. Heart is without murmur. There is a regular rhythm and rate. Cervical, thoracic, and lumbar spine are tender to palpation , especially lumbar spine. Gait was not tested but stance sitting up in bed with her feet dangling was normal. With outstretched arms there is no drift. There are no resting, postural, or action tremors. There is no ataxia with finger to nose testing. There is good facility in the hands. No other abnormal involuntary movements are noted. Motor strength is 5/5 diffusely in the arms bilaterally including deltoids, biceps, triceps, brachioradialis, wrist flexors and extensors, film laboratory technician, and intrinsic hand muscles. Motor strength is 5/5 diffusely in the legs bilaterally including hip flexors, quadriceps, hamstrings, gastrocnemius, tibialis anterior, tibialis posterior, and Peroneii muscles. Toe extensors are normal and there is good bulk in the extensor digitorum brevis muscles bilaterally. The limbs have good tone without rigidity or spasticity. There is no atrophy noted in the muscles. Muscle bulk is normal, there is no tenderness to palpation, no myotonia to percussion, and no fasciculations seen. Sensory examination is intact to touch and pin throughout all 4 limbs diffusely. Reflexes are 2/4 in the biceps, triceps, brachioradialis, and quadriceps tendons bilaterally. Achilles tendon reflexes were absent bilaterally. There is no clonus bilaterally. Toes are downgoing with plantar stimulation bilaterally. Peripheral pulses are present and of normal quality distally in all 4 limbs. There is no peripheral edema noted in the limbs. Results & Data ([facility]) Vital Signs (Past 12 Hours) Vital Signs Temp Pulse Pulse Resp BP BP Pulse Ox 02/21/22 08:13 36.9 C 77 17 133/86 96 02/21/22 07:24 85 02/21/22 04:26 36.9 C 93 H 20 120/81 94 02/20/22 22:20 79 02/20/22 22:00 36.8 C 75 18 130/84 92 PG Care Time/CCT Total # of Minutes Spent Total Time Spent with Patient: Total time spent is greater than 50% in coordination of care (as documented) at patient's floor/unit and/or counseling patient: Coding Level of Care Code INT OBSERVATION CARE 70M LVL 3 Diagnoses Gait disturbance R26.9 Chronic prescription opiate use Z79.891 Acute confusional state F05 Chronic cerebral ischemia I67.82 Hypertension I10 Diabetes E11.9 Time Spent (min) 90 Comment add modifiers as able
[2022-02-21 10:14] LABS: Base Excess ABG 2.8 mEq/L (-9-1.8); HCO3 ABG 26 mmol/L (19-24); Oxygen Saturation ABG 94.4 % (90-95); PCO2 ABG 37 mmHg (35-46); PO2 ABG 64 mmHg (80-95); pH ABG 7.47 (7.35-7.45)
[2022-02-21 10:16] LABS: Allen Test Pos (Pos)
[2022-02-21 11:06] LABS: Lyme Ab IgG w/WB Rflx Negative (Negative); Lyme Ab IgM w/WB Rflx Negative (Negative)
[2022-02-21 12:46] LABS: Estimated Average Glucose 174 mg/dl; Hemoglobin A1C 7.7 % (4.5-5.6)
[2022-02-21] MEDS: HYDROCODONE/ACETAMOPHEN 5/325MG TAB PO PRN ×2 (13:34→22:42)
[2022-02-21] MEDS: CYCLOBENZAPRINE HCL 10 MG TAB PO PRN (13:34)
[2022-02-21] MEDS ORDERED: LAVAGE SOLUTION 4000ML PO SCH (14:30)
[2022-02-21] MEDS ORDERED: LAVAGE SOLUTION 4000ML PO ONE (14:45)
[2022-02-21 17:09] LABS: Appearance Urine Clear (Clear); Bacteria Urine Automated Negative (Negative); Bilirubin Urine Negative (Negative); Blood Urine Negative (Negative); Cast Urine Automated 0 /lpf (0-5); Color Urine Yellow; Glucose Urine UA 2+ (Negative); Ketones Urine Negative (Negative); Leukocyte Esterase Urine 3+ (Negative); Nitrite Urine Negative (Negative); Protein Urine Negative (Negative); RBC Urine Automated 0-4 /hpf (0-4); Urobilinogen Urine Negative (Negative); pH Urine 7.5 (4.5-7.5)
[2022-02-21 17:26] LABS: Trichomonas Urine Present (None Prsent)
[2022-02-21] MEDS: traZODone HCL 100 MG TAB PO SCH (20:16)
[2022-02-21] MEDS: rOPINIRole HCL 1 MG TABLET PO SCH (20:17)
[2022-02-21] MEDS: MONTELUKAST SODIUM 10 MG TABLET PO SCH ×2 (20:18→21:17)
[2022-02-21] MEDS ORDERED: ZOLPIDEM TARTRATE 5 MG TAB PO PRN (20:30)
--- NOTE | 2022-02-21 20:30 | Hospitalist Progress Note ---
Date of Service February 21, 2022 Assessment & Plan (1) Weakness: Plan: Pippa Schmitt is a 56-year-old female with past medical history of Gilbert's syndrome, avascular necrosis, hypertension, pulmonary fibrosis, hyperlipidemia, asthma, and type 2 diabetes; who presented for concerns of intermittent confusion over the last several days. Weakness/dysphagia: -Patient has been stumbling over the last several days -Strength improved in emergency department -CT head, CTA head and CTA neck demonstrating no acute intracranial abnormality, unremarkable angiogram; nonspecific white matter hypodensities progressed as compared to 2014 -tPA not indicated given timeline of presentation -PT/OT consulted -MRI without CVA but neurology consulted due to abnormal findings -HbA1C 7.7, relatively well controlled -LDL 84 -B12 level WNL. Prior thiamine level in 2019 normal, no acute need to repeat this but recommend daily thiamine supplmentation -Weakness/dysphagia potentially complicated by polypharmacy; PDMP demonstrating 90 Snook 5 mg every 15 days in addition to tramadol, Flexeril, trazodone, melatonin, Requip, gabapentin insetting of sleep deprivation Chronic opiate use: -Likely complicating weakness/dysphagia presenting symptoms -Continue Snook 5-10mg q8h as needed for moderate to severe pain Hypertension: -Hypertensive on admission to / -Home regimen of amlodipine 2.5 mg daily -Consider alteration of home antihypertensive regimen to ANNA/ARB in the setting of type 2 diabetes hyperlipidemia and TIA concerns Type 2 diabetes: -Home regimen of metformin 1000 mg twice daily, Rybelsus 3 mg daily -Last A1c November 2021 of 7.0 -Carb consistent diet ordered -Hold oral metformin -Sliding scale insulin -BSG's ACHS Hyperlipidemia: -Continue home regimen of atorvastatin 80 mg daily Interstitial lung disease: -Continue home inhaler regimen Constipation - chronic issue, will give 2000ml Golyteley prep now incase contributing to AMS. Continue Amitiza. Diet: Heart healthy/carb consistent CODE STATUS: Full code DVT prophylaxis: Low risk given age < 60 and no acute process found (2) Dysphagia: (3) Hypertension complicating diabetes: (4) Lumbar degenerative disc disease: (5) Diabetes type 2, uncontrolled: (6) Dyslipidemia: (7) Interstitial lung disease: (8) Chronic prescription opiate use: (9) Constipation: Admission and Anticipated Discharge Date Admission Date: February 20, 2022 Subjective Reviewed history with the patient. She still finds she is having difficulty finding the right words. Notes significant lack of sleep recently. Mary Ellen said she went pale in the face but no complete syncopal event. Discussed no acute need to treat hepatitis C but she should follow up with gastroenterology regarding this for treatment. No arrhythmias on telemetry to explain episode. She reports measuring her oxygen levels shortly after episode and they were fine so she rejects this as a reason for her episode. We discussed polypharmacy with her narcotics, flexeril and gabapentin however she reports no recent changes to these so also feels this is not the cause of her episode. Review of Systems Review of Systems: All systems reviewed & are unremarkable except as noted in Subjective Physical Exam Constitutional: WD/WN, vitals as above Eyes: PERRL, conjunctivae normal, anicteric sclerae Respiratory: normal respiratory effort, lungs clear to auscultation Cardiovascular: RRR, no murmur, no edema Gastrointestinal (Abdomen): normal bowel sounds, soft, nontender, no hepatosplenomegaly Musculoskeletal: no cyanosis or clubbing, extremities motor strength 5/5 Skin: no rashes, warm and dry Neurologic: moves all extremities and awake; no focal motor deficits (no lateralizing deficit) and not confused Speech / Cognition: normal speech (pat sterling feels some mild expressive dysphasia but objectively normal) Motor/Sensory: no tremor Results & Data Results & Data ([facility]) Vital Signs (Past 12 Hours) Vital Signs Temp Pulse Pulse Resp BP Pulse Ox 02/21/22 19:00 37.1 C 79 18 127/74 94 02/21/22 15:38 36.8 C 107 H 18 103/61 97 02/21/22 15:36 93 H 02/21/22 11:36 37.0 C 75 18 116/78 96 PG Care Time/CCT Total # of Minutes Spent Total Time Spent with Patient: Total time spent is greater than 50% in coordination of care (as documented) at patient's floor/unit and/or counseling patient: Coding Level of Care Code 22808 Subseq Obs Care Lvl 3 Diagnoses Weakness R53.1 Dysphagia R13.10 Hypertension complicating diabetes E11.59; I15.2 Lumbar degenerative disc disease M51.36 Diabetes type 2, uncontrolled E11.65 Dyslipidemia E78.5 Interstitial lung disease J84.9 Chronic prescription opiate use Z79.891 Constipation K59.00
[2022-02-21] MEDS: ALBUTEROL HFA 8 GM INHALER INH PRN (22:09)
--- NOTE | 2022-02-22 05:57 | Electrocardiogram Report ---
Test Reason : Blood Pressure : / mmHG Vent. Rate : 101 BPM Atrial Rate : 101 BPM P-R Int : 150 ms QRS Dur : 080 ms QT Int : 352 ms P-R-T Axes : 036 -29 024 degrees QTc Int : 456 ms Sinus tachycardia Possible Left atrial enlargement Low voltage QRS Septal infarct (cited on or before 06-MAY-2014) Inferior infarct (cited on or before 06-MAY-2014) Nonspecific T wave abnormality Abnormal ECG When compared with ECG of 26-DEC-2021 14:34, No significant change Confirmed by Hemant Khoury ([id number]) on 02/22/2022 5:57:37 AM Referred By: Confirmed By:Hemant Khoury
[2022-02-22] MEDS: UMECLIDINIUM/VILANTEROL 62.5/25MCG 7 PUFFS/INHALER INH SCH (08:51)
[2022-02-22] MEDS: FLUTICASONE FUROATE 200MCG 14 PUFFS/INHALER INH SCH (08:51)
[2022-02-22] MEDS: amLODIPine BESYLATE 5 MG TAB PO SCH (08:53)
[2022-02-22] MEDS: NAPROXEN 250 MG TAB PO PRN (08:54)
[2022-02-22] MEDS: ATORVASTATIN 40 MG TAB PO SCH (08:54)
[2022-02-22] MEDS: PANTOprazole 40 MG TAB PO SCH (08:54)
[2022-02-22] MEDS: GABAPENTIN 300 MG CAP PO SCH (08:54)
[2022-02-22] MEDS: LUBIPROSTONE 8 MCG CAP PO SCH (08:55)
[2022-02-22] MEDS: FAMOTIDINE 20 MG TAB PO SCH (08:55)
[2022-02-22] MEDS: DOCUSATE SODIUM 100 MG CAP PO SCH (08:56)
[2022-02-22] MEDS: POLYETHYLENE (MIRALAX) 17 GM PACK PO SCH (08:56)
[2022-02-22] MEDS: CYCLOBENZAPRINE HCL 10 MG TAB PO PRN (08:59)
[2022-02-22] MEDS ORDERED: MONTELUKAST SODIUM 10 MG TABLET PO SCH (09:00)
[2022-02-22] MEDS: ALBUTEROL HFA 8 GM INHALER INH PRN (09:07)
[2022-02-22] MEDS: INSULIN ASPART PER UNIT SC SCH ×2 (09:11→13:21)
== END 2022-02-22 15:41 | disposition home health service (06) ==
LOC: ED 13:49 → 2W 13:49 → SUATTDRO 18:45 → 2W 20:53

== ENCOUNTER 2022-04-29 15:17 | Inpatient (IN) ==
[2022-04-29] MEDS ORDERED: LORazepam 2 MG/1 ML VIAL IV STA (15:26)
[2022-04-29] MEDS ORDERED: ALBUT/IPRATROP 3MG/0.5MG NEB 3 ML VIAL NEB ONE (15:26)
[2022-04-29 15:44] LABS: Basophils # (auto) 0.04 K/uL (0-0.2); Eosinophils # (auto) 0.03 K/uL (0-0.50); Eosinophils % (auto) 0.7 %; Hematocrit (blood only) 43.5 % (34.1-44.9); Hemoglobin 14.6 g/dl (12.0-16.0); Immature Granulocytes # (auto) 0.01 K/uL (0.00-0.02); Immature Granulocytes % (auto) 0.2 %; Lymphocytes # (auto) 1.14 K/uL (1.2-3.4); Lymphocytes % (auto) 28.1 %; Mean Corpuscular Hgb Conc 33.6 g/dL (32.0-36.0); Mean Corpuscular Volume 89.3 fL (80.0-100.0); Mean Platelet Volume 11.1 fL (9.4-12.3); Monocytes % (auto) 19.8 %; Neutrophils # (auto) 2.03 K/uL (1.4-6.5); Neutrophils % (auto) 50.2 %; Platelet Count 194 K/uL (130-400); RDW Coefficient of Variation 13.5 % (11.5-14.5); Red Blood Count 4.87 M/uL (3.93-5.22); White Blood Count 4.05 K/ul (4.8-10.8)
--- NOTE | 2022-04-29 15:44 | Emergency Department Note ---
Impression & Plan Respiratory distress, Hypoxia, SOB (shortness of breath), COVID-19 ED Provider Note NAME: JACOB PALM AGE: 56 SEX: F : 1965 ARRIVES VIA: Ambulance INFORMANT: [Patient][ems, nursing] ED PROVIDER(S): [Johan Mc MD] CHIEF COMPLAINT: Short of breath HISTORY OF PRESENT ILLNESS: The patient is a 56-year-old female presents to the ER with dyspnea and cough. She has felt poorly for 3 days. Today, things were quite a bit worse and her O2 saturation was recorded at 77%. She wears oxygen at night and sometimes if needed during the day. She was brought by ambulance. Before the ambulance arrived, she took a DuoNeb. She was given a DuoNeb in route as well as some IV Solu-Medrol. The patient has had a cough. No documented fever. She does have a history of restrictive lung disease as a result of an H1 N1 infection. She has a history of a tracheostomy. She is seen by pulmonology. She saw her pulmonary doctor 2 weeks ago and things were baseline then. No known COVID or other sick contact exposures. REVIEW OF SYSTEMS: See HPI for pertinent positives and negatives. A total of ten systems were reviewed and were otherwise negative. PMHx/PSHx: See Below SOCIAL HISTORY: See Below. PHYSICAL EXAM: GENERAL: Patient is in moderate respiratory distress, anxious. HEENT: No acute trauma, normocephalic atraumatic, mucous membranes moist, no nasal congestion, no scleral icterus. NECK: No stridor, no adenopathy, no meningismus, trachea is midline. LUNGS: Moderate respiratory distress, increased respiratory rate, wheezing bilaterally. Diminished breath sounds bilaterally. HEART: Tachycardic, regular rhythm, no murmurs. ABDOMEN: Soft, nontender, bowel sounds positive, no peritonitis. EXTREMITIES: No cyanosis or edema, full range of motion of all the joints without pain or difficulty, no signs for acute trauma. NEUROLOGIC: Oriented x 3, no acute motor or sensory deficits, no focal weakness. SKIN: No rash, no jaundice, no diaphoresis. Psychiatric: Anxious, cooperative, voluntary. DIFFERENTIAL DIAGNOSIS: Reactive airway disease, pneumonia, exacerbation of underlying lung disease, COVID-19, pneumothorax, COPD, CHF, infection, cardiac ischemia, pulmonary embolism, bronchitis, musculoskeletal, gastrointestinal, anxiety, as well as other pathologies. EMERGENCY DEPARTMENT COURSE/PROCEDURES: ECG: Indication was shortness of breath. The ECG shows a normal sinus rhythm with a rate of 89. There is an old anterior and old inferior infarct. There is no ST elevation, no PVCs but the QTc is 438. Compared to an ECG from 20 February 2022, the rate has decreased. Continuous Cardiac Monitoring: An order was placed for continuous cardiac monitoring. The monitor shows a rate of 92 with normal sinus rhythm. Critical Care Note: I have personally spent 47 minutes of critical care time in the direct management of this patient. This includes bedside care, interpretation of diagnostic studies, and testing, discussion with consultants, patient, and family members, and other required patient management activities. This 47 minutes is in excess of all separately billable procedures. MEDICAL DECISION MAKING: There is no leukocytosis, in fact, the white count is slightly low and more con sistent with a viral process. There is a normal hemoglobin and platelet count. No coagulopathy. No renal failure or significant electrolyte abnormality. Lactic acid level was elevated consistent with potential infection versus dehydration versus hypoxia. There were some subtle liver enzyme elevations however, the bilirubin was normal. Cardiac enzyme testing x1 is not consistent with acute cardiac injury. ECG shows a normal sinus rhythm, no obvious ST elevation. Respiratory bio fire did return positive for COVID-19. Chest film shows some chronic parenchymal change, no pneumothorax. No obvious focal infiltrate by chest x-ray. The patient presented in respiratory distress. She was hypoxic in the outpatient setting. She was aggressively managed here in the ED. She was given IV saline, 500 cc. She received a 1 hour DuoNeb. She was given IV Ativan 0.5 mg for some anxiety. She received IV cefepime as antibiotic coverage. Patient had received IV Solu-Medrol prior to arrival. Patient presents in respiratory distress. She is improved with the above treatment. She is much more comfortable. She will require a hospital stay for further respiratory care. I spoke with the patient and disease case manager rn. I spoke with the patient. The on- call hospitalist was consulted. Past Med/Surg History Medical History Acute pancreatitis Admitted April 2021- had MRCP at that time- recommended EUS six weeks from April admission Aggressive behavior Anxiety Asthma with exacerbation last used inhaler yesterday Chronic constipation COPD (chronic obstructive pulmonary disease) Depression Diabetes type 2, uncontrolled Hgb A1C 04/25/21 was 7.0 Dysphagia DIFFICULTY SWALLOWING MEDS Foot pain rt tendon "problems" GERD (gastroesophageal reflux disease) Hiatal hernia History of ARDS 2009 (ADMITTED TO [facility]-FL[facility] [place]) (SECONDARY TO H1N1 INFECTION)- CONTINUES ON SUPPLEMENTAL OXYGEN History of congestive heart failure 2019 History of ETOH abuse last drink 05-20-20 History of Guillain-Jasper syndrome DX'D 2009 History of pulmonary embolism 2008 per PCP records - no AC HTN (hypertension) Interstitial lung disease Follows with pulm Lumbar degenerative disc disease Lumbar radiculopathy Mood disorder On home oxygen therapy 2-3L O2 WITH EXERTION AND AT HS Post traumatic stress disorder Pulmonary HTN Restless leg syndrome Surgical History History of anesthesia reaction "I HAVE A HARD TIME BREATHING AFTER ANESTHESIA" History of colonoscopy 2019 History of esophagogastroduodenoscopy (EGD) History of laparoscopic cholecystectomy History of radiofrequency ablation procedure for cardiac arrhythmia 2005-NO F/U CARDIOLOGY History of sinus surgery History of tracheostomy resolved 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 Family History Grandmother (Paternal) Family history of diabetes mellitus Mother , age 81 of uncertain causes No problems noted. 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 Labor Required: No Beliefs That Will Affect Care: [facility] Beliefs: only wants to have a blood transfusion as a last resort marital status: Single Current Living Situation: Alone Current Living Situation Comment: living in hotel current occupational status: disabled 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 Feels Safe at Home: Yes Assistive Devices: Glasses, Nebulizer, Oxygen - Continuous and Scooter/Electric Scooter Allergies Allergies Allergy/AdvReac Type Severity Reaction Status Date / Time house dust Allergy Intermediate Difficulty Verified 04/29/22 17:29 Breathing mold Allergy Intermediate ASTHMA Verified 04/29/22 17:29 ATTACK Home Meds Home Medications Medication Instructions Recorded Confirmed melatonin 10 mg tablet 10 mg PO HS PRN Sleep 07/05/18 04/29/22 multivitamin-ferrous 1 tab PO QAM 09/21/19 04/29/22 fumarate-folic acid 18 mg-400 mcg tablet (Centrum Complete) polyethylene glycol 3350 17 17 g PO QAM 06/11/20 04/29/22 gram/dose oral powder diphenhydramine HCl 25 mg capsule 25 mg PO HS PRN Allergy Symptoms 06/21/21 04/29/22 (Benadryl) fluticasone fur. 200 mcg-umeclid 1 inh inhalation QAM interstitial 06/21/21 04/29/22 62.5 mcg-vilant 25 mcg lung disease inhalat.powder (Trelegy Ellipta) glucosamine sulf dipot 1 cap PO QAM 06/21/21 04/29/22 chlr,msm,chond 550 mg-C 30 mg-pawel 1 mg capsule (Glucosamine Chondroitin) metformin 500 mg tablet,extended 1,000 mg PO BID 06/21/21 04/29/22 release 24 hr montelukast 10 mg tablet 10 mg PO HS 06/21/21 04/29/22 (Singulair) Lactobacillus acidophilus and 30 cap PO QAM 08/04/21 04/29/22 rhamnosus 15 billion cell capsule (Probiotic) Vitamin C And Zinc Tablet 1 tab PO QAM 08/04/21 04/29/22 calcium polycarbophil 625 mg 3,129 mg PO QAM 08/04/21 04/29/22 tablet (Fiber (calcium polycarbophil)) cinnamon bark 500 mg capsule 500 mg PO QAM 08/04/21 04/29/22 (Cinnamon) docusate sodium 100 mg capsule 300 mg PO BID 08/04/21 04/29/22 (Colace) tramadol 50 mg tablet 50 mg PO DAILY PRN Pain 08/04/21 04/29/22 Previous Rx's Medication Instructions Recorded trazodone 100 mg tablet 200 mg PO HS #180 tabs 08/07/20 sodium chloride 7 % for 4 ml inhalation BID #240 mL 08/28/20 nebulization blood-glucose meter (OneTouch #1 ea 10/22/20 Verio Meter) lancets 30 gauge (OneTouch Delica #100 ea 01/14/21 Plus Lancet) Oxygen Home #1 ea 02/04/21 nebulizers #1 ea 05/06/21 pantoprazole 40 mg tablet,delayed 40 mg PO BID #180 tabs 05/13/21 release fluticasone propionate 50 1 spray intranasal QAM PRN Nasal 06/03/21 mcg/actuation nasal Congestion #16 grams spray,suspension (Flonase Allergy Relief) codeine 10 mg-guaifenesin 100 mg/5 5 ml PO Q6H PRN cough #236 mL 08/13/21 mL oral liquid ipratropium 0.5 mg-albuterol 3 mg 3 ml inhalation Q4H PRN wheezing 08/22/21 (2.5 mg base)/3 mL nebulization #180 mL soln ropinirole 1 mg tablet 1 mg PO HS #30 tabs 10/22/21 famotidine 20 mg tablet 20 mg PO BID #180 tabs 12/03/21 gabapentin 300 mg capsule 300 mg PO TID Pain #270 caps 12/16/21 atorvastatin 80 mg tablet 80 mg PO QAM #90 tabs 12/19/21 albuterol sulfate 90 mcg/actuation 2 puff inhalation 6XD PRN Wheezing 12/26/21 aerosol inhaler #8.5 grams ondansetron 4 mg disintegrating 4 mg PO Q8H PRN nausea and 02/05/22 tablet vomiting #30 tabs naproxen 500 mg tablet 500 mg PO BID PRN pain #180 tabs 02/17/22 diclofenac sodium 1 % topical gel 2 g topical QID PRN Pain #100 grams 03/05/22 blood sugar diagnostic (OneTouch #150 ea 03/24/22 Verio test strips) aspirin 81 mg tablet,delayed 81 mg PO DAILY #30 tabs 04/01/22 release guaifenesin 600 mg tablet, 600 mg PO Q12H #60 tabs 04/14/22 extended release 12 hr (Mucinex) hydrocodone 5 mg-acetaminophen 325 2 tab PO Q6H PRN Pain #120 tabs 04/21/22 mg tablet prucalopride 2 mg tablet 2 mg PO DAILY #90 tabs 04/24/22 (Motegrity) amlodipine 5 mg tablet 10 mg PO DAILY #60 tabs 04/25/22 cyclobenzaprine 10 mg tablet 10 mg PO TID PRN muscle spasm #90 04/25/22 tabs magnesium oxide 400 mg (241.3 mg 400 mg PO BID #60 tabs 04/25/22 magnesium) tablet semaglutide 3 mg tablet (Rybelsus) 3 mg PO DAILY #30 tabs 04/25/22 Results & Data (ED) Vital Signs Vital Signs - 24 hr 04/29/22 15:29 04/29/22 16:10 04/29/22 15:36 Temperature 36.8 C Temperature Source Oral Pulse Rate 96 H Pulse Rate [Apical] 93 H Pulse Rate [Right Finger] 93 H Pulse Rate from SpO2 Sensor Respiratory Rate 22 24 Respiratory Effort / Characteristics Non-Labored Spontaneous Spontaneous Labored Respiratory Depth Normal Respiratory Pattern Regular Regular Blood Pressure 105/70 Blood Pressure [Right Arm] 112/59 L Blood Pressure Mean 81 Blood Pressure Mean [Right Arm] 76 Pulse Oximetry 85 L 98 85 L Oxygen Delivery Method Nasal Cannula Nebulizer Nasal Cannula Oxygen Flow Rate 4 Sepsis Recent Fever Within 48 Hours No Sepsis New/Unexplained Change in Mental Status No Sepsis Action Taken by Nursing No Action Required Oxygen Flow Rate - Titration 4 Pulse Oximetry Post Tiitration 90 04/29/22 15:36 04/29/22 15:36 04/29/22 15:36 Temperature Temperature Source Pulse Rate 96 H Pulse Rate [Apical] 96 H Pulse Rate [Right Finger] Pulse Rate from SpO2 Sensor Respiratory Rate 24 24 Respiratory Effort / Characteristics Respiratory Depth Respiratory Pattern Blood Pressure Blood Pressure [Right Arm] 105/70 Blood Pressure Mean Blood Pressure Mean [Right Arm] 81 Pulse Oximetry 92 92 Oxygen Delivery Method Oxymask Oxymask Oxymask Oxygen Flow Rate 4 4 4 Sepsis Recent Fever Within 48 Hours Sepsis New/Unexplained Change in Mental Status Sepsis Action Taken by Nursing Oxygen Flow Rate - Titration Pulse Oximetry Post Tiitration 04/29/22 15:42 04/29/22 15:32 04/29/22 16:00 Temperature Temperature Source Pulse Rate 90 92 H Pulse Rate [Apical] Pulse Rate [Right Finger] 92 H Pulse Rate from SpO2 Sensor 90 93 H Respiratory Rate 26 H 28 H 22 Respiratory Effort / Characteristics Spontaneous Labored Short of Breath Respiratory Depth Respiratory Pattern Blood Pressure Blood Pressure [Right Arm] Blood Pressure Mean Blood Pressure Mean [Right Arm] Pulse Oximetry 92 95 97 Oxygen Delivery Method Oxymask Nebulizer Oxygen Flow Rate 4 Sepsis Recent Fever Within 48 Hours Sepsis New/Unexplained Change in Mental Status Sepsis Action Taken by Nursing Oxygen Flow Rate - Titration Pulse Oximetry Post Tiitration 04/29/22 16:09 04/29/22 16:09 04/29/22 16:30 Temperature Temperature Source Pulse Rate 93 H Pulse Rate [Apical] Pulse Rate [Right Finger] Pulse Rate from SpO2 Sensor 87 Respiratory Rate 16 Respiratory Effort / Characteristics Respiratory Depth Respiratory Pattern Blood Pressure 112/59 L 93/58 L Blood Pressure [Right Arm] Blood Pressure Mean 76 69 Blood Pressure Mean [Right Arm] Pulse Oximetry 98 Oxygen Delivery Method Oxygen Flow Rate Sepsis Recent Fever Within 48 Hours Sepsis New/Unexplained Change in Mental Status Sepsis Action Taken by Nursing Oxygen Flow Rate - Titration Pulse Oximetry Post Tiitration 04/29/22 16:30 04/29/22 16:49 04/29/22 16:49 Temperature Temperature Source Pulse Rate 94 H 98 H Pulse Rate [Apical] Pulse Rate [Right Finger] Pulse Rate from SpO2 Sensor 97 H Respiratory Rate 18 22 Respiratory Effort / Characteristics Respiratory Depth Respiratory Pattern Blood Pressure 77/50 L Blood Pressure [Right Arm] Blood Pressure Mean 59 Blood Pressure Mean [Right Arm] Pulse Oximetry 94 Oxygen Delivery Method Oxymask Oxygen Flow Rate 4 Sepsis Recent Fever Within 48 Hours Sepsis New/Unexplained Change in Mental Status Sepsis Action Taken by Nursing Oxygen Flow Rate - Titration Pulse Oximetry Post Tiitration 04/29/22 16:53 04/29/22 16:53 04/29/22 17:00 Temperature Temperature Source Pulse Rate 98 H 96 H Pulse Rate [Apical] Pulse Rate [Right Finger] Pulse Rate from SpO2 Sensor 98 H 98 H Respiratory Rate 24 17 Respiratory Effort / Characteristics Respiratory Depth Respiratory Pattern Blood Pressure 92/60 L Blood Pressure [Right Arm] Blood Pressure Mean 70 Blood Pressure Mean [Right Arm] Pulse Oximetry 93 93 Oxygen Delivery Method Oxymask Oxymask Oxygen Flow Rate 4 4 Sepsis Recent Fever Within 48 Hours Sepsis New/Unexplained Change in Mental Status Sepsis Action Taken by Nursing Oxygen Flow Rate - Titration Pulse Oximetry Post Tiitration 04/29/22 17:01 04/29/22 17:01 04/29/22 17:02 Temperature Temperature Source Pulse Rate 96 H 98 H Pulse Rate [Apical] Pulse Rate [Right Finger] Pulse Rate from SpO2 Sensor 96 H 97 H Respiratory Rate 17 30 H Respiratory Effort / Characteristics Respiratory Depth Respiratory Pattern Blood Pressure 78/53 L Blood Pressure [Right Arm] Blood Pressure Mean 61 Blood Pressure Mean [Right Arm] Pulse Oximetry 92 93 Oxygen Delivery Method Oxygen Flow Rate Sepsis Recent Fever Within 48 Hours Sepsis New/Unexplained Change in Mental Status Sepsis Action Taken by Nursing Oxygen Flow Rate - Titration Pulse Oximetry Post Tiitration 04/29/22 17:02 04/29/22 17:30 04/29/22 17:30 Temperature Temperature Source Pulse Rate 99 H Pulse Rate [Apical] Pulse Rate [Right Finger] Pulse Rate from SpO2 Sensor 99 H Respiratory Rate 15 Respiratory Effort / Characteristics Respiratory Depth Respiratory Pattern Blood Pressure 92/61 L 107/63 Blood Pressure [Right Arm] Blood Pressure Mean 71 77 Blood Pressure Mean [Right Arm] Pulse Oximetry 95 Oxygen Delivery Method Oxygen Flow Rate Sepsis Recent Fever Within 48 Hours Sepsis New/Unexplained Change in Mental Status Sepsis Action Taken by Nursing Oxygen Flow Rate - Titration Pulse Oximetry Post Tiitration 04/29/22 18:00 04/29/22 18:00 Temperature Temperature Source Pulse Rate 101 H Pulse Rate [Apical] Pulse Rate [Right Finger] Pulse Rate from SpO2 Sensor 102 H Respiratory Rate 26 H Respiratory Effort / Characteristics Respiratory Depth Respiratory Pattern Blood Pressure 133/50 L Blood Pressure [Right Arm] Blood Pressure Mean 77 Blood Pressure Mean [Right Arm] Pulse Oximetry 95 Oxygen Delivery Method Oxymask Oxygen Flow Rate 4 Sepsis Recent Fever Within 48 Hours Sepsis New/Unexplained Change in Mental Status Sepsis Action Taken by Nursing Oxygen Flow Rate - Titration Pulse Oximetry Post Tiitration Home Medications Current Medication List: was personally reviewed by me Laboratory Data Attestation: I reviewed the patient's lab results. Result diagrams: 04/29/22 15:31 04/29/22 15:31 Lab Results 04/29/22 04/29/22 04/29/22 Range/Units 15:31 15:31 15:31 WBC 4.05 L (4.8-10.8) K/ul RBC 4.87 (3.93-5.22) M/uL Hgb 14.6 (12.0-16.0) g/dl Hct 43.5 (34.1-44.9) % MCV 89.3 (80.0-100.0) fL MCH 30.0 (25.0-34.0) pg MCHC 33.6 (32.0-36.0) g/dL RDW Std Deviation 44.0 (36.4-46.3) fL RDW Coeff of Joyce 13.5 (11.5-14.5) % Plt Count 194 (130-400) K/uL MPV 11.1 (9.4-12.3) fL Immature Gran % (Auto) 0.2 % Neut % (Auto) 50.2 % Lymph % (Auto) 28.1 % [place] % (Auto) 19.8 % Eos % (Auto) 0.7 % Baso % (Auto) 1.0 % Neut # (Auto) 2.03 (1.4-6.5) K/uL Lymph # (Auto) 1.14 L (1.2-3.4) K/uL [place] # (Auto) 0.80 (0.24-0.82) K/uL Eos # (Auto) 0.03 (0-0.50) K/uL Baso # (Auto) 0.04 (0-0.2) K/uL Immature Gran # (Auto) 0.01 (0.00-0.02) K/uL PT 10.4 (9.0-12.0) Seconds INR 1.0 (0.9-1.1) APTT 28.5 (21.0-31.0) Seconds PTT Ratio 1.0 Sodium 136 (136-145) mmol/L Potassium 3.6 (3.5-5.1) mmol/L Chloride 99 (98-107) mmol/L Carbon Dioxide 27 (21-32) mmol/L Anion Gap 10 (3-11) BUN 21 (6-23) mg/dl Creatinine 1.16 (0.6-1.2) mg/dl Est Cr Clr Drug Dosing Not Reportable Est GFR ( Amer) 61.0 ml/min Est GFR (Non-Af Amer) 52.6 ml/min BUN/Creatinine Ratio 18.1 (10-20) Glucose 185 H (70-99(Fasting)) mg/dl Lactate (0.4-2.0) mmol/L Calcium 9.0 (8.5-10.1) mg/dl Magnesium 1.8 (1.7-2.4) mg/dl Total Bilirubin 0.7 (0.2-1.0) mg/dl AST 148 H (13-39) U/L ALT 157 H (7-52) U/L Alkaline Phosphatase 160 H (34-104) U/L Troponin I High Sens 6.4 (0-14) pg/ml Total Protein 7.2 (6.0-8.3) gm/dl Albumin 3.9 (3.4-5.0) gm/dl Globulin 3.3 (2.5-4.0) gm/dl Albumin/Globulin Ratio 1.2 (0.9-2) Adenovirus (PCR) (NotDetected) B. pertussis DNA (PCR) (NotDetected) B.parapertussis DNA PCR (NotDetected) C. pneumoniae DNA (PCR) (NotDetected) Coronavirus OC43 (PCR) (NotDetected) Coronavirus HKU1 (PCR) (NotDetected) Coronavirus 229E (PCR) (NotDetected) SARS-CoV-2 (PCR) (NotDetected) Coronavirus NL63 (PCR) (NotDetected) Human Metapneumovir PCR (NotDetected) Influenza Type A (PCR) (NotDetected) Influenza Type B (PCR) (NotDetected) M. pneumoniae (PCR) (NotDetected) Parainfluenza 1 (PCR) (NotDetected) Parainfluenza 2 (PCR) (NotDetected) Parainfluenza 3 (PCR) (NotDetected) Parainfluenza 4 (PCR) (NotDetected) RSV (PCR) (NotDetected) Entero/Rhino (PCR) (NotDetected) 04/29/22 04/29/22 Range/Units 15:53 16:07 WBC (4.8-10.8) K/ul RBC (3.93-5.22) M/uL Hgb (12.0-16.0) g/dl Hct (34.1-44.9) % MCV (80.0-100.0) fL MCH (25.0-34.0) pg MCHC (32.0-36.0) g/dL RDW Std Deviation (36.4-46.3) fL RDW Coeff of Joyce (11.5-14.5) % Plt Count (130-400) K/uL MPV (9.4-12.3) fL Immature Gran % (Auto) % Neut % (Auto) % Lymph % (Auto) % [place] % (Auto) % Eos % (Auto) % Baso % (Auto) % Neut # (Auto) (1.4-6.5) K/uL Lymph # (Auto) (1.2-3.4) K/uL [place] # (Auto) (0.24-0.82) K/uL Eos # (Auto) (0-0.50) K/uL Baso # (Auto) (0-0.2) K/uL Immature Gran # (Auto) (0.00-0.02) K/uL PT (9.0-12.0) Seconds INR (0.9-1.1) APTT (21.0-31.0) Seconds PTT Ratio Sodium (136-145) mmol/L Potassium (3.5-5.1) mmol/L Chloride (98-107) mmol/L Carbon Dioxide (21-32) mmol/L Anion Gap (3-11) BUN (6-23) mg/dl Creatinine (0.6-1.2) mg/dl Est Cr Clr Drug Dosing Est GFR ( Amer) ml/min Est GFR (Non-Af Amer) ml/min BUN/Creatinine Ratio (10-20) Glucose (70-99(Fasting)) mg/dl Lactate 2.3 H* (0.4-2.0) mmol/L Calcium (8.5-10.1) mg/dl Magnesium (1.7-2.4) mg/dl Total Bilirubin (0.2-1.0) mg/dl AST (13-39) U/L ALT (7-52) U/L Alkaline Phosphatase (34-104) U/L Troponin I High Sens (0-14) pg/ml Total Protein (6.0-8.3) gm/dl Albumin (3.4-5.0) gm/dl Globulin (2.5-4.0) gm/dl Albumin/Globulin Ratio (0.9-2) Adenovirus (PCR) Not Detected (NotDetected) B. pertussis DNA (PCR) Not Detected (NotDetected) B.parapertussis DNA PCR Not Detected (NotDetected) C. pneumoniae DNA (PCR) Not Detected (NotDetected) Coronavirus OC43 (PCR) Not Detected (NotDetected) Coronavirus HKU1 (PCR) Not Detected (NotDetected) Coronavirus 229E (PCR) Not Detected (NotDetected) SARS-CoV-2 (PCR) DETECTED A* (NotDetected) Coronavirus NL63 (PCR) Not Detected (NotDetected) Human Metapneumovir PCR Not Detected (NotDetected) Influenza Type A (PCR) Not Detected (NotDetected) Influenza Type B (PCR) Not Detected (NotDetected) M. pneumoniae (PCR) Not Detected (NotDetected) Parainfluenza 1 (PCR) Not Detected (NotDetected) Parainfluenza 2 (PCR) Not Detected (NotDetected) Parainfluenza 3 (PCR) Not Detected (NotDetected) Parainfluenza 4 (PCR) Not Detected (NotDetected) RSV (PCR) Not Detected (NotDetected) Entero/Rhino (PCR) Not Detected (NotDetected) Administered Medications Hydrocodone Bitart/Acetaminophen (Hydrocodone/Acetamophen 5/325mg Tab) 2 tab PO Q6H PRN PRN Reason: Pain Stop: 05/13/22 20:06 Last Admin: 04/29/22 22:29 Dose: 2 tab Documented By: CHLOE Cyclobenzaprine HCl (Cyclobenzaprine Hcl 10 Mg Tab) 10 mg PO TID PRN PRN Reason: muscle spasm Stop: 05/29/22 20:06 Last Admin: 04/29/22 22:29 Dose: 10 mg Documented By: CHLOE Docusate Sodium (Docusate Sodium 100 Mg Cap) 300 mg PO BID ON LICENSE OF [facility] Stop: 05/29/22 20:59 Last Admin: 04/29/22 22:31 Dose: 300 mg Documented By: MINIATURE SET CONSTRUCTOR Famotidine (Famotidine 20 Mg Tab) 20 mg PO BID ON LICENSE OF [facility] Stop: 05/29/22 20:59 Last Admin: 04/29/22 22:31 Dose: 20 mg Documented By: MINIATURE SET CONSTRUCTOR Gabapentin (Gabapentin 300 Mg Cap) 300 mg PO TID ON LICENSE OF [facility] Stop: 05/29/22 20:59 Last Admin: 04/29/22 22:32 Dose: 300 mg Documented By: MINIATURE SET CONSTRUCTOR Guaifenesin (Guaifenesin 600 Mg Tabcr) 600 mg PO Q12H EN Stop: 05/29/22 20:00 Last Admin: 04/29/22 22:33 Dose: 600 mg Documented By: MINIATURE SET CONSTRUCTOR Remdesivir 200 mg/ Sodium (Chloride) 250 mls @ 125 mls/hr IV TODAY@2100 ONE; Protocol Stop: 04/29/22 22:59 Last Admin: 04/29/22 21:20 Dose: 125 mls/hr Documented By: MINIATURE SET CONSTRUCTOR Magnesium Oxide (Magnesium Oxide 400 Mg Tab) 400 mg PO BID EN Stop: 05/29/22 20:59 Last Admin: 04/29/22 22:33 Dose: 400 mg Documented By: MINIATURE SET CONSTRUCTOR Metformin HCl (Metformin Hcl Er 500 Mg Tabcr) 1,000 mg PO BIDM EN Stop: 05/29/22 20:59 Last Admin: 04/29/22 22:30 Dose: 1,000 mg Documented By: MINIATURE SET CONSTRUCTOR Montelukast Sodium (Montelukast Sodium 10 Mg Tablet) 10 mg PO EN Stop: 05/29/22 20:59 Last Admin: 04/29/22 22:32 Dose: Not Given Documented By: MINIATURE SET CONSTRUCTOR Pantoprazole Sodium (Pantoprazole 40 Mg Tab) 40 mg PO BID EN Stop: 05/29/22 20:59 Last Admin: 04/29/22 22:31 Dose: 40 mg Documented By: MINIATURE SET CONSTRUCTOR Ropinirole HCl (Ropinirole Hcl 1 Mg Tablet) 1 mg PO [facility] Stop: 05/29/22 20:59 Last Admin: 04/29/22 22:30 Dose: 1 mg Documented By: MINIATURE SET CONSTRUCTOR Trazodone HCl (Trazodone Hcl 100 Mg Tab) 200 mg PO EN Stop: 05/29/22 20:59 Last Admin: 04/29/22 22:30 Dose: Not Given Documented By: MINIATURE SET CONSTRUCTOR Discontinued Medications Albuterol (Albut/Ipratrop 3mg/0.5mg Neb 3 Ml Vial) 12 ml NEB ONE ONE; Protocol Stop: 04/29/22 15:27 Last Admin: 04/29/22 15:41 Dose: 12 ml Documented By: ESTHER Cefepime HCl (Maxipime) 2,000 mg in 20 mls @ 5 mls/min IV NOW STA; Protocol Stop: 04/29/22 15:50 Last Admin: 04/29/22 16:09 Dose: 5 mls/min Documented By: ROLDAN Sodium Chloride (Nss 1000ml) 500 mls @ 999 mls/hr IV .Q31M ONE Stop: 04/29/22 17:33 Last Infusion: 04/29/22 17:57 Dose: 0 mls/hr Documented By: Admin: 04/29/22 17:06 Dose: 999 mls/hr Documented By: ROLDAN Dexamethasone 10 mg/ Syringe 2.5 mls @ 1 mls/min IV 2145 EN Stop: 04/29/22 22:00 Last Admin: 04/29/22 22:34 Dose: 1 mls/min Documented By: CHLOE Lorazepam (Lorazepam 2 Mg/1 Ml Vial) 0.5 mg IV NOW STA; Protocol Stop: 04/29/22 15:27 Last Admin: 04/29/22 15:52 Dose: 0.5 mg Documented By: ROLDAN Lorazepam (Lorazepam 0.5 Mg Tab) 0.5 mg PO NOW STA Stop: 04/29/22 22:28 Last Admin: 04/29/22 22:45 Dose: 0.5 mg Documented By: CHLOE Imaging Data Radiologist's Impression: Chest X-Ray 04/29/22 15:26 XR chest 1V portable HISTORY: 56 years-old Female SOB acute shortness of breath COMPARISON: Chest radiograph 02/20/2022, 12/26/2021, CTA chest 08/07/2021. TECHNIQUE: Portable AP view of the chest FINDINGS: The patient is mildly rotated towards the right. The cardiac silhouette is enlarged. Ill-defined pulmonary opacities with reticular interstitial coarsening redemonstrated. There is mild right hemidiaphragmatic elevation. Unchanged right hemidiaphragmatic elevation. No pneumothorax, large pleural effusion or new lobar airspace consolidation. Degenerative changes of the shoulders and spine. Avascular necrosis of the left humeral head. IMPRESSION: 1. Chronic pulmonary fibrosis. 2. Cardiomegaly. Superimposed pulmonary vascular congestion would be difficult to exclude. 3. Avascular necrosis of the left humeral head. ACT 112: Negative or not required by law. The above report was generated using voice recognition software. It may contain grammatical, syntax or spelling errors. Electronically signed by: Johan Fountain M.D. 04/29/2022 3:55 PM Discharge Plan Visit Data Chief Complaint: Shortness of Breath/Dyspnea Stated Complaint: trouble breathing ED Provider: Johan Mc Discharge Problem: Respiratory distress, Hypoxia, SOB (shortness of breath), COVID-19 Patient Disposition: Admitted As Inpatient Condition: Serious Discharge Instructions Interventions: ED Discharge Assessment Last Done: 04/29/22 19:06
[2022-04-29] MEDS ORDERED: CEFEPIME 2,000 MG/20 ML VIAL IV STA (15:47)
--- NOTE | 2022-04-29 15:56 | XRay Report ---
XR chest 1V portable HISTORY: 56 years-old Female SOB acute shortness of breath COMPARISON: Chest radiograph 02/20/2022, 12/26/2021, CTA chest 08/07/2021. TECHNIQUE: Portable AP view of the chest FINDINGS: The patient is mildly rotated towards the right. The cardiac silhouette is enlarged. Ill-defined pulm onary opacities with reticular interstitial coarsening redemonstrated. There is mild right hemidiaphr agmatic elevation. Unchanged right hemidiaphragmatic elevation. No pneumothorax, large pleural effusi on or new lobar airspace consolidation. Degenerative changes of the shoulders and spine. Avascular ne crosis of the left humeral head. IMPRESSION: 1. Chronic pulmonary fibrosis. 2. Cardiomegaly. Superimposed pulmonary vascular congestion would be difficult to exclude. 3. Avascular necrosis of the left humeral head. ACT 112: Negative or not required by law. The above report was generated using voice recognition software. It may contain grammatical, syntax o r spelling errors. Electronically signed by: Johan Fountain M.D. 04/29/2022 3:55 PM
[2022-04-29 16:09] LABS: Alanine Aminotransferase 157 U/L (7-52); Albumin Globulin Ratio 1.2 (0.9-2); Albumin Level 3.9 gm/dl (3.4-5.0); Alkaline Phosphatase 160 U/L (34-104); Anion Gap 10 (3-11); Aspartate Aminotransferase 148 U/L (13-39); BUN Creatinine Ratio 18.1 (10-20); Bilirubin,Total 0.7 mg/dl (0.2-1.0); Blood Urea Nitrogen 21 mg/dl (6-23); Carbon Dioxide 27 mmol/L (21-32); Chloride 99 mmol/L (98-107); Est GFR (Non-African American) 52.6 ml/min; Globulin 3.3 gm/dl (2.5-4.0); Glucose 185 mg/dl (70-99(Fasting)); Magnesium 1.8 mg/dl (1.7-2.4); Potassium 3.6 mmol/L (3.5-5.1); Sodium 136 mmol/L (136-145); Total Protein 7.2 gm/dl (6.0-8.3)
[2022-04-29 16:14] LABS: Troponin I High Sensitivity 6.4 pg/ml (0-14)
[2022-04-29 16:23] LABS: Partial Thromboplastin Time 28.5 Seconds (21.0-31.0); Prothrombin Time 10.4 Seconds (9.0-12.0)
--- NOTE | 2022-04-29 16:29 | Electrocardiogram Report ---
Test Reason : Blood Pressure : / mmHG Vent. Rate : 089 BPM Atrial Rate : 089 BPM P-R Int : 148 ms QRS Dur : 070 ms QT Int : 360 ms P-R-T Axes : 025 -19 010 degrees QTc Int : 438 ms Normal sinus rhythm Inferior infarct (cited on or before 06-MAY-2014) Anterior infarct (cited on or before 06-MAY-2014) Abnormal ECG When compared with ECG of 20-FEB-2022 14:04, No significant change was found Confirmed by Juan Carlos Jimenez ([id number]) on 04/29/2022 4:29:11 PM Referred By: REFERRED SELF Confirmed By:Juan Carlos Jimenez
[2022-04-29] MEDS ORDERED: SODIUM CHLORIDE 0.9% 1000ML 500 ML IV ONE (17:03)
[2022-04-29 17:07] LABS: Adenovirus PCR Not Detected (NotDetected); Bordetella parapertussis PCR Not Detected (NotDetected); Bordetella pertussis PCR Not Detected (NotDetected); Chlamydia pneumoniae PCR Not Detected (NotDetected); Coronavirus 229E PCR Not Detected (NotDetected); Coronavirus CoV-2 (COVID19)PCR DETECTED (NotDetected); Coronavirus HKU1 PCR Not Detected (NotDetected); Coronavirus NL63 PCR Not Detected (NotDetected); Coronavirus OC43PCR Not Detected (NotDetected); Human Metapneumovirus PCR Not Detected (NotDetected); Influenza A PCR Not Detected (NotDetected); Influenza B PCR Not Detected (NotDetected); Mycoplasma pneumoniae PCR Not Detected (NotDetected); Parainfluenza Virus 1 PCR Not Detected (NotDetected); Parainfluenza Virus 2 PCR Not Detected (NotDetected); Parainfluenza Virus 3 PCR Not Detected (NotDetected); Parainfluenza Virus 4 PCR Not Detected (NotDetected); Respiratory Syncytial VirusPCR Not Detected (NotDetected); Rhinovirus/Enterovirus PCR Not Detected (NotDetected)
--- NOTE | 2022-04-29 18:21 | History & Physical Report ---
Date of Service April 29, 2022 Assessment & Plan (1) COVID: Plan: COVID-pneumonia causing what appears to be acute on chronic hypoxic respiratory failure. Start Decadron and remdesivir, continue pulmonary toilet with her home inhalers/nebulizers as needed. Given her interstitial lung diseasewill also cover with azithromycin for atypicals given her chest x-ray and lung exam. Of note, her chest x-ray does show some findings that would be consistent with pulmonary edema, but given her overall clinical pictureI doubt she is volume overloaded (hypotensive, was given fluid boluses in the ER with no adverse outcome on her respiratory status, and an alternate explanation for chest x-ray appearance being her interstitial lung disease with a superimposed COVID plus or minus atypical pneumonia). That said, given that her blood pressure has improvedwe will refrain on giving further IV fluids and simply follow her p.o. intake. If blood pressure drops at all again, can give a repeat bolus if it becomes necessary (2) Diabetes: Plan: Last A1c about 2 months ago was 7.7. Continue Rybelsus, follow fingersticks and utilize supplemental NovoLog insulinlow threshold to roll into a basal bolus regimen if requiredparticularly while she is on steroids. (3) Transaminitis: Plan: Likely related to COVID. Far under the threshold of 10 times upper limits of normal to be able to safely utilize remdesivirobviously continue to follow LFTs (4) Interstitial lung disease: Plan: See above, complicates her clinical picture, continue home inhalers (5) Chronic respiratory failure with hypoxia: (6) COPD (chronic obstructive pulmonary disease): (7) Hypertension: Plan: Home meds on hold given her relative hypotension. Follow. (8) History of pulmonary embolism: Plan: Not entirely clear when this isrecords note that it goes at least as far back as 2008 the last time she had clotting, she recalls that during COVIDI cannot find records of this. At any rate, she is not on chronic anticoagulationbut we will utilize Lovenox 40 mg daily for prophylaxis (9) Constipation: Plan: Continue home meds (10) DVT prophylaxis: Plan: As above (11) [facility] issues: [facility] History of Present Illness Chief Complaint: Shortness of breath Primary Care Provider: Tyrell Mancini MD Patient is a very pleasant 56-year-old female who noted that she first got sick starting on about 3 days agoshe notes that for several days she felt lousy poor appetite upset stomach some GI symptoms, but really today started with shortness of breath. She notes that she started to get more dyspnea more dyspnea on exertion cough and mucus. She has a baseline of interstitial lung diseaseand so starting to feel more short of breath raise significant concernshe came to the ER for further evaluation was found to be hypoxic and COVID-positive. She is coughing with fairly clear mucus but feels like there is a lot in her chest, she is dyspneic although at rest that seems to be reasonable, seems to be worse with exertion. She is a little bit of a difficult historianmaking details somewhat more vague and hard to delineate. She does note that she had COVID about a year ago and had blood clots at that time. Her biggest concern is that in 2008 she had H1 N1 fluleading to respiratory failure, probably was the nidus for her current interstitial lung disease, and she notes that she had a trach for quite a while. As it relates to her GI symptoms, she has no current abdominal pain nausea or vomitingand feels like she could eatin that respect she is requesting a regular diet. Incidentally she also notes some right ear irritation and a little bit of a bloody discharge. Allergies Allergy/AdvReac Type Severity Reaction Status Date / Time house dust Allergy Intermediate Difficulty Verified 04/29/22 17:29 Breathing mold Allergy Intermediate ASTHMA Verified 04/29/22 17:29 ATTACK Home Medications Medication Instructions Recorded Confirmed Type melatonin 10 mg tablet 10 mg PO HS PRN Sleep 07/05/18 04/29/22 History multivitamin-ferrous 1 tab PO QAM 09/21/19 04/29/22 History fumarate-folic acid 18 mg-400 mcg tablet (Centrum Complete) polyethylene glycol 3350 17 17 g PO QAM 06/11/20 04/29/22 History gram/dose oral powder trazodone 100 mg tablet 200 mg PO HS #180 tabs 08/07/20 04/29/22 Rx sodium chloride 7 % for 4 ml inhalation BID #240 mL 08/28/20 04/04/22 Rx nebulization blood-glucose meter (OneTouch #1 ea 10/22/20 04/04/22 Rx Verio Meter) lancets 30 gauge (OneTouch Delica #100 ea 01/14/21 04/04/22 Rx Plus Lancet) Oxygen Home #1 ea 02/04/21 04/04/22 Rx nebulizers #1 ea 05/06/21 04/04/22 Rx pantoprazole 40 mg tablet,delayed 40 mg PO BID #180 tabs 05/13/21 04/29/22 Rx release fluticasone propionate 50 1 spray intranasal QAM PRN Nasal 06/03/21 04/29/22 Rx mcg/actuation nasal Congestion #16 grams spray,suspension (Flonase Allergy Relief) diphenhydramine HCl 25 mg capsule 25 mg PO HS PRN Allergy Symptoms 06/21/21 04/29/22 History (Benadryl) fluticasone fur. 200 mcg-umeclid 1 inh inhalation QAM interstitial 06/21/21 04/29/22 History 62.5 mcg-vilant 25 mcg lung disease inhalat.powder (Trelegy Ellipta) glucosamine sulf dipot 1 cap PO QAM 06/21/21 04/29/22 History chlr,msm,chond 550 mg-C 30 mg-pawel 1 mg capsule (Glucosamine Chondroitin) metformin 500 mg tablet,extended 1,000 mg PO BID 06/21/21 04/29/22 History release 24 hr montelukast 10 mg tablet 10 mg PO HS 06/21/21 04/29/22 History (Singulair) Lactobacillus acidophilus and 30 cap PO QAM 08/04/21 04/29/22 History rhamnosus 15 billion cell capsule (Probiotic) Vitamin C And Zinc Tablet 1 tab PO QAM 08/04/21 04/29/22 History calcium polycarbophil 625 mg 3,129 mg PO QAM 08/04/21 04/29/22 History tablet (Fiber (calcium polycarbophil)) cinnamon bark 500 mg capsule 500 mg PO QAM 08/04/21 04/29/22 History (Cinnamon) docusate sodium 100 mg capsule 300 mg PO BID 08/04/21 04/29/22 History (Colace) tramadol 50 mg tablet 50 mg PO DAILY PRN Pain 08/04/21 04/29/22 History codeine 10 mg-guaifenesin 100 mg/5 5 ml PO Q6H PRN cough #236 mL 08/13/21 04/29/22 Rx mL oral liquid ipratropium 0.5 mg-albuterol 3 mg 3 ml inhalation Q4H PRN wheezing 08/22/21 04/29/22 Rx (2.5 mg base)/3 mL nebulization #180 mL soln ropinirole 1 mg tablet 1 mg PO HS #30 tabs 10/22/21 04/29/22 Rx famotidine 20 mg tablet 20 mg PO BID #180 tabs 12/03/21 04/29/22 Rx gabapentin 300 mg capsule 300 mg PO TID Pain #270 caps 12/16/21 04/29/22 Rx atorvastatin 80 mg tablet 80 mg PO QAM #90 tabs 12/19/21 04/29/22 Rx albuterol sulfate 90 mcg/actuation 2 puff inhalation 6XD PRN Wheezing 12/26/21 04/29/22 Rx aerosol inhaler #8.5 grams ondansetron 4 mg disintegrating 4 mg PO Q8H PRN nausea and 02/05/22 04/29/22 Rx tablet vomiting #30 tabs naproxen 500 mg tablet 500 mg PO BID PRN pain #180 tabs 02/17/22 04/29/22 Rx diclofenac sodium 1 % topical gel 2 g topical QID PRN Pain #100 grams 03/05/22 04/29/22 Rx blood sugar diagnostic (OneTouch #150 ea 03/24/22 04/04/22 Rx Verio test strips) aspirin 81 mg tablet,delayed 81 mg PO DAILY #30 tabs 04/01/22 04/29/22 Rx release guaifenesin 600 mg tablet, 600 mg PO Q12H #60 tabs 04/14/22 04/29/22 Rx extended release 12 hr (Mucinex) hydrocodone 5 mg-acetaminophen 325 2 tab PO Q6H PRN Pain #120 tabs 04/21/22 04/29/22 Rx mg tablet prucalopride 2 mg tablet 2 mg PO DAILY #90 tabs 04/24/22 04/29/22 Rx (Motegrity) amlodipine 5 mg tablet 10 mg PO DAILY #60 tabs 04/25/22 04/29/22 Rx cyclobenzaprine 10 mg tablet 10 mg PO TID PRN muscle spasm #90 04/25/22 04/29/22 Rx tabs magnesium oxide 400 mg (241.3 mg 400 mg PO BID #60 tabs 04/25/22 04/29/22 Rx magnesium) tablet semaglutide 3 mg tablet (Rybelsus) 3 mg PO DAILY #30 tabs 04/25/22 04/29/22 Rx Past Med/Surg History Medical History Acute pancreatitis Admitted April 2021- had MRCP at that time- recommended EUS six weeks from April admission Aggressive behavior Anxiety Asthma with exacerbation last used inhaler yesterday Chronic constipation COPD (chronic obstructive pulmonary disease) Depression Diabetes type 2, uncontrolled Hgb A1C 04/25/21 was 7.0 Dysphagia DIFFICULTY SWALLOWING MEDS Foot pain rt tendon "problems" GERD (gastroesophageal reflux disease) Hiatal hernia History of ARDS 2009 (ADMITTED TO [facility] [place]) (SECONDARY TO H1N1 INFECTION)- CONTINUES ON SUPPLEMENTAL OXYGEN History of congestive heart failure 2019 History of ETOH abuse last drink 05-20-20 History of Guillain-Avenue syndrome DX'D 2009 History of pulmonary embolism 2008 per PCP records - no AC HTN (hypertension) Interstitial lung disease Follows with pulm Lumbar degenerative disc disease Lumbar radiculopathy Mood disorder On home oxygen therapy 2-3L O2 WITH EXERTION AND AT HS Post traumatic stress disorder Pulmonary HTN Restless leg syndrome Surgical History History of anesthesia reaction "I HAVE A HARD TIME BREATHING AFTER ANESTHESIA" History of colonoscopy 2019 History of esophagogastroduodenoscopy (EGD) History of laparoscopic cholecystectomy History of radiofrequency ablation procedure for cardiac arrhythmia 2005-NO F/U CARDIOLOGY History of sinus surgery History of tracheostomy resolved 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 Family History Grandmother (Paternal) Family history of diabetes mellitus Mother , age 81 of uncertain causes No problems noted. Father , early 50s of lymphoma Lymphoma Other No family history of adverse response to anesthesia No significant family history Social History Smoking Status: Never smoker Second Hand Exposure: Yes (FATHER SMOKED); Hx Alcohol Use: No ( history of alcohol use and abuse apparently stopping 2 years.) Hx Substance Use: No Preferred Language: Setswana Communication Ability: Effective Visual Impairment: No Limitations Molasses Preparer Required: No Beliefs That Will Affect Care: Shinto Shinto Beliefs: only wants to have a blood transfusion as a last resort marital status: Single Current Living Situation: Alone Current Living Situation Comment: living in hotel current occupational status: disabled 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 HEENT normocephalic atraumatic mucous membranes moist. Right ear canal appears mildly erythematous and somewhat crusted with blooda little bit of a difficult exam due to positioning in the patient's ear canal, TM not clearly visualized. Cardio is regular slightly tachycardic no rubs murmurs or gallops. Lungs show diffuse rales from mid lung down upper lung quiet but fairly clear. No rhonchi no wheezes no accessory muscle use good effort. She does have 1 coughing fit while I am in the room it is productive of clear sputum. Abdomen is soft nondistended nontender no masses organomegaly. Extremities without cyanosis clubbing or edema no calf tenderness. Skin shows no rashes no pallor or icterus. Neuro shows cranial nerves II through XII be grossly intact gross motor and sensory intact. Musculoskeletal exam shows left greater than right bilateral mid thoracic paraspinals to be high tone, tender, decreased range of motiongentle direct myofascial done with some improvement in tissue texture. Patient tolerated well. Mental status shows her to have good recent and remote recall she is fairly anxious, but otherwise shows good judgment and insight. Results & Data Results & Data ([facility]) Vital Signs (Past 12 Hours) Vital Signs Temp Pulse Pulse Pulse Resp BP BP 04/29/22 17:30 99 H 15 04/29/22 17:30 107/63 04/29/22 17:02 92/61 L 04/29/22 17:02 98 H 30 H 04/29/22 17:01 78/53 L 04/29/22 17:01 96 H 17 04/29/22 17:00 96 H 17 04/29/22 16:53 98 H 24 04/29/22 16:53 92/60 L 04/29/22 16:49 77/50 L 04/29/22 16:49 98 H 22 04/29/22 16:30 94 H 18 04/29/22 16:30 93/58 L 04/29/22 16:09 112/59 L 04/29/22 16:09 93 H 16 04/29/22 16:00 92 H 22 04/29/22 15:32 90 28 H 04/29/22 15:42 92 H 26 H 04/29/22 15:36 96 H 24 105/70 04/29/22 15:36 04/29/22 15:36 96 H 24 04/29/22 15:36 98.2 F 96 H 24 105/70 04/29/22 16:10 93 H 93 H 22 112/59 L 04/29/22 15:29 Pulse Ox O2 Del Method O2 Flow Rate 04/29/22 17:30 95 04/29/22 17:30 04/29/22 17:02 04/29/22 17:02 93 04/29/22 17:01 04/29/22 17:01 92 04/29/22 17:00 93 Oxymask 4 04/29/22 16:53 93 Oxymask 4 04/29/22 16:53 04/29/22 16:49 04/29/22 16:49 94 Oxymask 4 04/29/22 16:30 04/29/22 16:30 04/29/22 16:09 04/29/22 16:09 98 04/29/22 16:00 97 04/29/22 15:32 95 Nebulizer 04/29/22 15:42 92 Oxymask 4 04/29/22 15:36 92 Oxymask 4 04/29/22 15:36 Oxymask 4 04/29/22 15:36 92 Oxymask 4 04/29/22 15:36 85 L Nasal Cannula 4 04/29/22 16:10 98 Nebulizer 04/29/22 15:29 85 L Nasal Cannula Code Status & VTE Plan VTE Prophylaxis Plan VTE Prophylaxis will be ordered: Yes PG Care Time/CCT Total # of Minutes Spent Total Time Spent with Patient: Total time spent is greater than 50% in coordination of care (as documented) at patient's floor/unit and/or counseling patient: Coding Level of Care Code 34826 Initial Inpt Care Lvl 3 Diagnoses COVID U07.1 Diabetes E11.9 Transaminitis R74.01 Interstitial lung disease J84.9 Chronic respiratory failure with hypoxia J96.11 COPD (chronic obstructive pulmonary disease) J44.9 Hypertension I10 History of pulmonary embolism Z86.711 Constipation K59.00 DVT prophylaxis Z29.9 Discharge planning issues Z02.9
[2022-04-29] MEDS ORDERED: ACETAMINOPHEN 325 MG TAB PO PRN (20:07)
[2022-04-29] MEDS ORDERED: IPRATROPIUM BROMIDE HFA INHALER INH PRN (20:07)
[2022-04-29] MEDS ORDERED: ONDANSETRON INJ 2 MG/ML 2 ML VIAL IV PRN (20:07)
[2022-04-29] MEDS ORDERED: ALBUTEROL HFA 8 GM INHALER INH PRN ×2 (20:07)
[2022-04-29] MEDS ORDERED: diphenhydrAMINE Capsule 25 MG CAP PO PRN (20:07)
[2022-04-29] MEDS ORDERED: ALUMINUM/MAGNESIUM SUSP 30 ML UDC PO PRN (20:07)
[2022-04-29] MEDS ORDERED: MAGNESIUM HYDROXIDE SUSP 30 ML UDC PO PRN (20:07)
[2022-04-29] MEDS ORDERED: FLUTICASONE PROPIONATE NA SPR 16 GM BTL NAE PRN (20:07)
[2022-04-29] MEDS ORDERED: traMADol HCL 50 MG TABLET PO PRN (20:07)
[2022-04-29] MEDS ORDERED: ONDANSETRON 4 MG OD TAB PO PRN (20:07)
[2022-04-29] MEDS ORDERED: IPRATROPIUM BROMIDE/ALBUTEROL respimat INH INH PRN (20:07)
[2022-04-29] MEDS ORDERED: dexAMETHasone**PF** 10 MG/ML VIAL IV SCH (20:07)
[2022-04-29] MEDS ORDERED: REMDESIVIR 200 MG in SODIUM CHLORIDE 0.9% 210 ML IV ONE (21:00)
[2022-04-29] MEDS ORDERED: MELATONIN 3 MG TAB PO PRN (21:14)
[2022-04-29] MEDS ORDERED: dexAMETHasone 10 MG in SYRINGE 0 ML IV SCH (21:45)
[2022-04-29] MEDS ORDERED: AZITHROMYCIN 500 MG in DEXTROSE 5% 250 ML IV ONE (22:00)
[2022-04-29] MEDS ORDERED: LORazepam 0.5 MG TAB PO STA (22:27)
[2022-04-29] MEDS: CYCLOBENZAPRINE HCL 10 MG TAB PO PRN (22:29)
[2022-04-29] MEDS: HYDROCODONE/ACETAMOPHEN 5/325MG TAB PO PRN (22:29)
[2022-04-29] MEDS: rOPINIRole HCL 1 MG TABLET PO SCH (22:30)
[2022-04-29] MEDS: traZODone HCL 100 MG TAB PO SCH (22:30)
[2022-04-29] MEDS: metFORMIN HCL ER 500 MG TABCR PO SCH (22:30)
[2022-04-29] MEDS: DOCUSATE SODIUM 100 MG CAP PO SCH (22:31)
[2022-04-29] MEDS: PANTOprazole 40 MG TAB PO SCH (22:31)
[2022-04-29] MEDS: FAMOTIDINE 20 MG TAB PO SCH (22:31)
[2022-04-29] MEDS: MONTELUKAST SODIUM 10 MG TABLET PO SCH (22:32)
[2022-04-29] MEDS: GABAPENTIN 300 MG CAP PO SCH (22:32)
[2022-04-29] MEDS: guaiFENesin 600 MG TABCR PO SCH (22:33)
[2022-04-29] MEDS: MAGNESIUM OXIDE 400 MG TAB PO SCH (22:33)
[2022-04-30] MEDS: ENOXAPARIN INJ 40 MG/0.4 ML SYR SQ SCH ×2 (00:03→22:25)
[2022-04-30] MEDS: INSULIN ASPART PER UNIT SC SCH ×5 (00:21→23:14)
[2022-04-30] MEDS: NEOMYCIN/POLYMYX/HYDROCORT OT SOLN 10 ML BTL OT SCH ×5 (00:42→22:31)
[2022-04-30] MEDS: HYDROCODONE/ACETAMOPHEN 5/325MG TAB PO PRN ×2 (04:53→23:08)
[2022-04-30 07:41] LABS: Basophils # (auto) 0.01 K/uL (0-0.2); Basophils % (auto) 0.2 %; Hematocrit (blood only) 40.8 % (34.1-44.9); Hemoglobin 13.5 g/dl (12.0-16.0); Immature Granulocytes # (auto) 0.02 K/uL (0.00-0.02); Immature Granulocytes % (auto) 0.4 %; Lymphocytes # (auto) 0.73 K/uL (1.2-3.4); Lymphocytes % (auto) 13.8 %; Mean Corpuscular Hemoglobin 29.8 pg (25.0-34.0); Mean Corpuscular Hgb Conc 33.1 g/dL (32.0-36.0); Mean Corpuscular Volume 90.1 fL (80.0-100.0); Mean Platelet Volume 11.3 fL (9.4-12.3); Monocytes # (auto) 0.18 K/uL (0.24-0.82); Monocytes % (auto) 3.4 %; Neutrophils # (auto) 4.34 K/uL (1.4-6.5); Neutrophils % (auto) 82.2 %; Platelet Count 183 K/uL (130-400); RDW Coefficient of Variation 13.2 % (11.5-14.5); RDW Standard Deviation 43.6 fL (36.4-46.3); Red Blood Count 4.53 M/uL (3.93-5.22); White Blood Count 5.28 K/ul (4.8-10.8)
[2022-04-30 08:22] LABS: Albumin Globulin Ratio 1.2 (0.9-2); Albumin Level 3.8 gm/dl (3.4-5.0); BUN Creatinine Ratio 26.4 (10-20); Bilirubin,Total 0.5 mg/dl (0.2-1.0); C Reactive Protein 0.87 mg/dl (0-0.5); Calcium 9.2 mg/dl (8.5-10.1); Creatinine Clr Calc Pharmacy 83.2 ml/min; Est GFR (African American) 108.5 ml/min; Est GFR (Non-African American) 93.6 ml/min; Globulin 3.1 gm/dl (2.5-4.0); Potassium 5.2 mmol/L (3.5-5.1); Total Protein 6.9 gm/dl (6.0-8.3)
[2022-04-30] MEDS: POLYETHYLENE (MIRALAX) 17 GM PACK PO SCH (08:47)
[2022-04-30] MEDS: GLUCOSAMINE SULFATE 500 MG CAP PO SCH (08:47)
[2022-04-30] MEDS: ASPIRIN 81 MG ECTAB PO SCH (08:47)
[2022-04-30] MEDS: ASCORBIC ACID 500 MG TAB PO SCH (08:48)
[2022-04-30] MEDS: ZINC SULFATE 220 MG CAPSULE PO SCH (08:48)
[2022-04-30] MEDS: guaiFENesin 600 MG TABCR PO SCH ×2 (08:49→22:28)
[2022-04-30] MEDS: MAGNESIUM OXIDE 400 MG TAB PO SCH ×2 (08:49→22:29)
[2022-04-30] MEDS: ATORVASTATIN 40 MG TAB PO SCH (08:49)
[2022-04-30] MEDS: GABAPENTIN 300 MG CAP PO SCH ×3 (08:49→22:27)
[2022-04-30] MEDS: ADVANCED PROBIOTIC 1250 MG CAPSULE PO SCH (08:49)
[2022-04-30] MEDS: DOCUSATE SODIUM 100 MG CAP PO SCH ×2 (08:50→22:24)
[2022-04-30] MEDS: FAMOTIDINE 20 MG TAB PO SCH ×2 (08:50→22:26)
[2022-04-30] MEDS: metFORMIN HCL ER 500 MG TABCR PO SCH ×2 (08:50→22:20)
[2022-04-30] MEDS: PANTOprazole 40 MG TAB PO SCH ×2 (08:50→22:32)
[2022-04-30] MEDS: MULTIVITAMIN TAB PO SCH (08:50)
[2022-04-30] MEDS: UMECLIDINIUM/VILANTEROL 62.5/25MCG 7 PUFFS/INHALER INH SCH (08:52)
[2022-04-30] MEDS: FLUTICASONE FUROATE 200MCG 14 PUFFS/INHALER INH SCH (08:52)
[2022-04-30] MEDS ORDERED: CALCIUM POLYCARBOPHIL 625MG TAB PO SCH (09:00)
[2022-04-30] MEDS: LANTUS PER UNIT CHARGE SQ SCH (10:22)
[2022-04-30] MEDS: AZITHROMYCIN 250 MG in DEXTROSE 5% 250 ML IV SCH (11:27)
[2022-04-30] MEDS: dexAMETHasone 6 MG in SYRINGE 0 ML IV SCH (14:58)
--- NOTE | 2022-04-30 19:00 | Hospitalist Progress Note ---
Date of Service April 30, 2022 Assessment & Plan (1) COVID: Plan: COVID-pneumonia causing what appears to be acute on chronic hypoxic respiratory failure present on admission. Continue Decadron and remdesivir, continue pulmonary toilet with her home inhalers/nebulizers as needed. Given her interstitial lung diseasecovering with azithromycin for atypicals given her chest x-ray and lung exam. Of note, her chest x-ray does show some findings that would be consistent with pulmonary edema, but given her overall clinical pictureI doubt she is volume overloaded (hypotensive, was given fluid boluses in the ER with no adverse outcome on her respiratory status, and an alternate explanation for chest x-ray appearance being her interstitial lung disease with a superimposed COVID plus or minus atypical pneumonia and improving without pulmonary edema management). Improved enough that we discussed possibly going home todaypossibly needing oxygen with ambulation to do sobut she seems to harbor understandable concern given her crash when she had H1 N1 fluwill follow into tomorrow. Stable for medical. (2) Diabetes: Plan: Last A1c about 2 months ago was 7.7. Continue Rybelsus, continue basal bolus insulin for now. (3) Transaminitis: Plan: Likely related to COVID. Far under the threshold of 10 times upper limits of normal to be able to safely utilize remdesivirand have trended down (4) Interstitial lung disease: Plan: See above, complicates her clinical picture, continue home inhalers (5) Chronic respiratory failure with hypoxia: (6) COPD (chronic obstructive pulmonary disease): (7) Hypertension: Plan: Home meds on hold but blood pressures are improving (8) History of pulmonary embolism: Plan: Not entirely clear when this isrecords note that it goes at least as far back as 2008 the last time she had clotting, she recalls that during COVIDI cannot find records of this. At any rate, she is not on chronic anticoagulationbut we will utilize Lovenox 40 mg daily for prophylaxis (9) Constipation: Plan: Continue home meds (10) DVT prophylaxis: Plan: As above (11) Discharge planning issues: Plan: Transfer to medical, possibly home tomorrow. Admission and Anticipated Discharge Date Admission Date: April 29, 2022 Subjective When I entered the room, she is on room air talking on the phone with absolutely no conversational dyspnea. Once we start to talk, she expresses concern about whether or not she is going to get sicker. Her dyspnea has improved quite significantly, and overall she is doing better. She notes whenever she walks around the room she still gets a little bit hypoxic but not nearly as bad as before. Review of Systems Review of Systems: All systems reviewed & are unremarkable except as noted in HPI & below Physical Exam Physical Exam: In general she is awake and alert pleasant anxious no distress. HEENT normocephalic atraumatic mucous membranes moist. Cardio is regular rate. Lungs overall surprisingly clear, left lower lung with very faint Rales mid lung, otherwise clearoverall much improved from yesterday. No rhonchi no wheezes good effort. No accessory muscle use. Skin without rashes, pallor, icterus. Neuro without focal deficits. Results & Data Results & Data ([facility]) Vital Signs (Past 12 Hours) Vital Signs Temp Pulse Pulse Resp BP Pulse Ox O2 Del Method 04/30/22 15:37 88 04/30/22 15:21 98.1 F 87 20 110/77 99 Oxymask 04/30/22 08:00 82 04/30/22 11:47 98.2 F 90 20 121/85 94 Oxymask 04/30/22 08:00 98.2 F 85 22 127/81 96 Oxymask O2 Flow Rate 04/30/22 15:37 04/30/22 15:21 04/30/22 08:00 04/30/22 11:47 04/30/22 08:00 3 PG Care Time/CCT Total # of Minutes Spent Total Time Spent with Patient: Total time spent is greater than 50% in coordination of care (as documented) at patient's floor/unit and/or counseling patient: Coding Level of Care Code 75677 Subseq Hosp Care Lvl 3 Diagnoses COVID U07.1 Diabetes E11.9 Transaminitis R74.01 Interstitial lung disease J84.9 Chronic respiratory failure with hypoxia J96.11 COPD (chronic obstructive pulmonary disease) J44.9 Hypertension I10 History of pulmonary embolism Z86.711 Constipation K59.00 DVT prophylaxis Z29.9 Discharge planning issues Z02.9
[2022-04-30] MEDS: ALBUT/IPRATROP 3MG/0.5MG NEB 3 ML VIAL NEB SCH (21:56)
[2022-04-30] MEDS: REMDESIVIR 100 MG in SODIUM CHLORIDE 0.9% 230 ML IV SCH (22:21)
[2022-04-30] MEDS: MONTELUKAST SODIUM 10 MG TABLET PO SCH (22:30)
[2022-04-30] MEDS: rOPINIRole HCL 1 MG TABLET PO SCH (22:32)
[2022-04-30] MEDS: traZODone HCL 100 MG TAB PO SCH (22:34)
[2022-04-30] MEDS: CYCLOBENZAPRINE HCL 10 MG TAB PO PRN (23:11)
[2022-05-01] MEDS ORDERED: LORazepam 1 MG in SYRINGE 0.5 ML IV STA (01:57)
[2022-05-01] MEDS: ALBUT/IPRATROP 3MG/0.5MG NEB 3 ML VIAL NEB SCH ×3 (03:09→11:30)
[2022-05-01 08:06] LABS: Basophils # (auto) 0.01 K/uL (0-0.2); Basophils % (auto) 0.1 %; Hematocrit (blood only) 40.1 % (34.1-44.9); Hemoglobin 13.8 g/dl (12.0-16.0); Immature Granulocytes # (auto) 0.02 K/uL (0.00-0.02); Immature Granulocytes % (auto) 0.2 %; Lymphocytes # (auto) 2.15 K/uL (1.2-3.4); Mean Corpuscular Hemoglobin 30.3 pg (25.0-34.0); Mean Corpuscular Hgb Conc 34.4 g/dL (32.0-36.0); Mean Corpuscular Volume 88.1 fL (80.0-100.0); Mean Platelet Volume 11.1 fL (9.4-12.3); Monocytes # (auto) 0.81 K/uL (0.24-0.82); Monocytes % (auto) 9.4 %; Neutrophils % (auto) 65.3 %; Platelet Count 187 K/uL (130-400); RDW Coefficient of Variation 13.2 % (11.5-14.5); RDW Standard Deviation 42.7 fL (36.4-46.3); Red Blood Count 4.55 M/uL (3.93-5.22); White Blood Count 8.59 K/ul (4.8-10.8)
[2022-05-01 08:32] LABS: Albumin Globulin Ratio 1.3 (0.9-2); Albumin Level 3.8 gm/dl (3.4-5.0); BUN Creatinine Ratio 30.2 (10-20); Bilirubin,Total 0.5 mg/dl (0.2-1.0); Creatinine Clr Calc Pharmacy 95.1 ml/min; Est GFR (African American) 116.2 ml/min; Est GFR (Non-African American) 100.3 ml/min; Total Protein 6.8 gm/dl (6.0-8.3)
[2022-05-01] MEDS: ASCORBIC ACID 500 MG TAB PO SCH (10:39)
[2022-05-01] MEDS: GLUCOSAMINE SULFATE 500 MG CAP PO SCH (10:39)
[2022-05-01] MEDS: HYDROCODONE/ACETAMOPHEN 5/325MG TAB PO PRN ×2 (10:39→22:32)
[2022-05-01] MEDS: ZINC SULFATE 220 MG CAPSULE PO SCH (10:39)
[2022-05-01] MEDS: PANTOprazole 40 MG TAB PO SCH ×2 (10:39→21:10)
[2022-05-01] MEDS: MULTIVITAMIN TAB PO SCH (10:40)
[2022-05-01] MEDS: guaiFENesin 600 MG TABCR PO SCH ×2 (10:40→21:11)
[2022-05-01] MEDS: ASPIRIN 81 MG ECTAB PO SCH (10:40)
[2022-05-01] MEDS: ATORVASTATIN 40 MG TAB PO SCH (10:40)
[2022-05-01] MEDS: CYCLOBENZAPRINE HCL 10 MG TAB PO PRN ×2 (10:40→22:33)
[2022-05-01] MEDS: MAGNESIUM OXIDE 400 MG TAB PO SCH ×2 (10:40→21:09)
[2022-05-01] MEDS: ADVANCED PROBIOTIC 1250 MG CAPSULE PO SCH (10:40)
[2022-05-01] MEDS: GABAPENTIN 300 MG CAP PO SCH ×3 (10:41→21:10)
[2022-05-01] MEDS: DICLOFENAC SOD 1% GEL 100 GM TUBE EXT SCH ×4 (10:41→21:12)
[2022-05-01] MEDS: DOCUSATE SODIUM 100 MG CAP PO SCH ×2 (10:41→21:07)
[2022-05-01] MEDS: metFORMIN HCL ER 500 MG TABCR PO SCH ×2 (10:41→18:08)
[2022-05-01] MEDS: FAMOTIDINE 20 MG TAB PO SCH ×2 (10:41→21:11)
[2022-05-01] MEDS: AZITHROMYCIN 250 MG in DEXTROSE 5% 250 ML IV SCH (10:41)
[2022-05-01] MEDS: UMECLIDINIUM/VILANTEROL 62.5/25MCG 7 PUFFS/INHALER INH SCH (10:42)
[2022-05-01] MEDS: FLUTICASONE FUROATE 200MCG 14 PUFFS/INHALER INH SCH (10:42)
[2022-05-01] MEDS: NEOMYCIN/POLYMYX/HYDROCORT OT SOLN 10 ML BTL OT SCH ×4 (10:42→21:12)
[2022-05-01] MEDS: POLYETHYLENE (MIRALAX) 17 GM PACK PO SCH (10:42)
[2022-05-01] MEDS ORDERED: ALBUT/IPRATROP 3MG/0.5MG NEB 3 ML VIAL NEB PRN (11:30)
[2022-05-01] MEDS: LANTUS PER UNIT CHARGE SQ SCH (12:39)
[2022-05-01] MEDS: INSULIN ASPART PER UNIT SC SCH ×4 (12:45→22:09)
[2022-05-01] MEDS: dexAMETHasone 6 MG in SYRINGE 0 ML IV SCH (14:11)
--- NOTE | 2022-05-01 19:29 | Hospitalist Progress Note ---
Date of Service May 01, 2022 Assessment & Plan (1) COVID: Plan: COVID-pneumonia causing what appears to be acute on chronic hypoxic respiratory failure present on admission. Continue Decadron and remdesivir, continue pulmonary toilet with her home inhalers/nebulizers as needed. Given her interstitial lung diseasecovering with azithromycin for atypicals given her chest x-ray and lung exam. Of note, her chest x-ray does show some findings that would be consistent with pulmonary edema, but given her overall clinical pictureI doubt she is volume overloaded (hypotensive, was given fluid boluses in the ER with no adverse outcome on her respiratory status, and an alternate explanation for chest x-ray appearance being her interstitial lung disease with a superimposed COVID plus or minus atypical pneumonia and improving without pulmonary edema management). Stable for home once her home situation is safe (2) Diabetes: Plan: Last A1c about 2 months ago was 7.7. Continue Rybelsus, continue basal bolus insulin for now - adjust based on sugars. (3) Transaminitis: Plan: Likely related to COVID. Far under the threshold of 10 times upper limits of normal to be able to safely utilize remdesivirand have trended down overall (4) Interstitial lung disease: Plan: See above, complicates her clinical picture, continue home inhalers (5) Chronic respiratory failure with hypoxia: (6) COPD (chronic obstructive pulmonary disease): (7) Hypertension: Plan: Home meds on hold but blood pressures are improving (8) History of pulmonary embolism: Plan: Not entirely clear when this isrecords note that it goes at least as far back as 2008 the last time she had clotting, she recalls that during COVIDI cannot find records of this. At any rate, she is not on chronic anticoagulationusing Lovenox 40 mg daily for prophylaxis (9) Constipation: Plan: Continue home meds (10) DVT prophylaxis: Plan: As above (11) Discharge planning issues: Plan: home once home situation is safe. Admission and Anticipated Discharge Date Admission Date: April 29, 2022 Subjective feeling better feels up to going home overall but appears will need O2 and having trouble finding someone who will bring her O2, and ramp on front of house not yet finished so can't get in. Review of Systems Review of Systems: All systems reviewed & are unremarkable except as noted in HPI & below Physical Exam Physical Exam: In general she is awake and alert pleasant anxious no distress. HEENT normocephalic atraumatic mucous membranes moist. Lungs are overall clear may be a faint Rales mid left but otherwise clear no rales rhonchi wheezes elsewhere no accessory muscle use good effort on room air at rest no conversational dyspnea. Results & Data Results & Data ([facility]) Vital Signs (Past 12 Hours) Vital Signs Temp Pulse Pulse Resp BP BP Pulse Ox 05/01/22 14:00 05/01/22 14:28 97.9 F 93 H 79 16 129/80 112/59 L 97 05/01/22 12:44 97.9 F 79 16 129/80 97 05/01/22 08:11 97.7 F 73 18 103/64 98 O2 Del Method O2 Flow Rate 05/01/22 14:00 Nasal Cannula 2.5 05/01/22 14:28 05/01/22 12:44 Room Air 05/01/22 08:11 Room Air PG Care Time/CCT Total # of Minutes Spent Total Time Spent with Patient: Total time spent is greater than 50% in coordination of care (as documented) at patient's floor/unit and/or counseling patient: Coding Level of Care Code 11475 Subseq Hosp Care Lvl 3 Diagnoses COVID U07.1 Diabetes E11.9 Transaminitis R74.01 Interstitial lung disease J84.9 Chronic respiratory failure with hypoxia J96.11 COPD (chronic obstructive pulmonary disease) J44.9 Hypertension I10 History of pulmonary embolism Z86.711 Constipation K59.00 DVT prophylaxis Z29.9 Discharge planning issues Z02.9
[2022-05-01] MEDS: rOPINIRole HCL 1 MG TABLET PO SCH (21:09)
[2022-05-01] MEDS: MONTELUKAST SODIUM 10 MG TABLET PO SCH (21:10)
[2022-05-01] MEDS: REMDESIVIR 100 MG in SODIUM CHLORIDE 0.9% 230 ML IV SCH (21:15)
[2022-05-01] MEDS: ENOXAPARIN INJ 40 MG/0.4 ML SYR SQ SCH (21:22)
[2022-05-01] MEDS: traZODone HCL 100 MG TAB PO SCH (21:22)
[2022-05-02] MEDS: metFORMIN HCL ER 500 MG TABCR PO SCH (08:39)
[2022-05-02] MEDS: AZITHROMYCIN 250 MG in DEXTROSE 5% 250 ML IV SCH (08:39)
[2022-05-02] MEDS: MULTIVITAMIN TAB PO SCH (08:40)
[2022-05-02] MEDS: ADVANCED PROBIOTIC 1250 MG CAPSULE PO SCH (08:40)
[2022-05-02] MEDS: GABAPENTIN 300 MG CAP PO SCH (08:40)
[2022-05-02] MEDS: guaiFENesin 600 MG TABCR PO SCH (08:40)
[2022-05-02] MEDS: ZINC SULFATE 220 MG CAPSULE PO SCH (08:40)
[2022-05-02] MEDS: FAMOTIDINE 20 MG TAB PO SCH (08:40)
[2022-05-02] MEDS: GLUCOSAMINE SULFATE 500 MG CAP PO SCH (08:40)
[2022-05-02] MEDS: PANTOprazole 40 MG TAB PO SCH (08:40)
[2022-05-02] MEDS: ASCORBIC ACID 500 MG TAB PO SCH (08:40)
[2022-05-02] MEDS: DOCUSATE SODIUM 100 MG CAP PO SCH (08:40)
[2022-05-02] MEDS: POLYETHYLENE (MIRALAX) 17 GM PACK PO SCH (08:41)
[2022-05-02] MEDS: DICLOFENAC SOD 1% GEL 100 GM TUBE EXT SCH (08:41)
[2022-05-02] MEDS: FLUTICASONE FUROATE 200MCG 14 PUFFS/INHALER INH SCH (08:41)
[2022-05-02] MEDS: UMECLIDINIUM/VILANTEROL 62.5/25MCG 7 PUFFS/INHALER INH SCH (08:41)
[2022-05-02] MEDS: NEOMYCIN/POLYMYX/HYDROCORT OT SOLN 10 ML BTL OT SCH (08:42)
[2022-05-02] MEDS: ATORVASTATIN 40 MG TAB PO SCH (08:44)
[2022-05-02 09:46] LABS: A calco-baum cmplx NotReported Not Detected (NotDetected); Bact fragilis Not Reported Not Detected (NotDetected); C auris Not Reported Not Detected (NotDetected); Calbicans Not Reported Not Detected (NotDetected); Candida glabrata Not Reported Not Detected (NotDetected); Candida krusei Not Reported Not Detected (NotDetected); Cneoformans/gatti Not Reported Not Detected (NotDetected); Cparapsilosis Not Reported Not Detected (NotDetected); Ctropicalis Not Reported Not Detected (NotDetected); E cloacae compx Not Reported Not Detected (NotDetected); Efaecalis Not Reported Not Detected (NotDetected); Efaecium Not Reported Not Detected (NotDetected); Enterobacterales Not Reported Not Detected (NotDetected); Escherichia coli Not Reported Not Detected (NotDetected); H influenzae Not Reported Not Detected (NotDetected); K aerogenes Not Reported Not Detected (NotDetected); Koxytoca Not Reported Not Detected (NotDetected); Kpneumoniae grp Not Reported Not Detected (NotDetected); Lmonocyt Not Reported Not Detected (NotDetected); N meningitidis Not Reported Not Detected (NotDetected); P aeruginosa Not Reported Not Detected (NotDetected); Proteus spp Not Reported Not Detected (NotDetected); Salmonella spp Not Reported Not Detected (NotDetected); Smarcescens Not Reported Not Detected (NotDetected); Staph lugdunensis Not Reported Not Detected (NotDetected); Staph spp. Not Reported Not Detected (NotDetected); Staphaureus Not Reported Not Detected (NotDetected); Staphepi Not Reported Not Detected (NotDetected); Stenmaltophilia Not Reported Not Detected (NotDetected); Strep agal(GrpB) Not Reported Not Detected (NotDetected); Strep pneum Not Reported Not Detected (NotDetected); Strep pyog (GrpA) Not Reported Not Detected (NotDetected); Strep spp Not Reported Not Detected (NotDetected)
[2022-05-02] MEDS: ASPIRIN 81 MG ECTAB PO SCH (11:04)
[2022-05-02] MEDS: LANTUS PER UNIT CHARGE SQ SCH (11:04)
[2022-05-02] MEDS: MAGNESIUM OXIDE 400 MG TAB PO SCH (11:04)
[2022-05-02] MEDS: INSULIN ASPART PER UNIT SC SCH ×2 (11:04→12:40)
[2022-05-02] MEDS: HYDROCODONE/ACETAMOPHEN 5/325MG TAB PO PRN (11:21)
[2022-05-02] MEDS: CYCLOBENZAPRINE HCL 10 MG TAB PO PRN (11:21)
--- NOTE | 2022-05-02 18:13 | Discharge Summary ---
Date of Service May 02, 2022 Admission HPI Per Admitting Provider Patient is a very pleasant 56-year-old female who noted that she first got sick starting on about 3 days agoshe notes that for several days she felt lousy poor appetite upset stomach some GI symptoms, but really today started with shortness of breath. She notes that she started to get more dyspnea more dyspnea on exertion cough and mucus. She has a baseline of interstitial lung diseaseand so starting to feel more short of breath raise significant concernshe came to the ER for further evaluation was found to be hypoxic and COVID-positive. She is coughing with fairly clear mucus but feels like there is a lot in her chest, she is dyspneic although at rest that seems to be reasonable, seems to be worse with exertion. She is a little bit of a difficult historianmaking details somewhat more vague and hard to delineate. She does note that she had COVID about a year ago and had blood clots at that time. Her biggest concern is that in 2008 she had H1 N1 fluleading to respiratory failure, probably was the nidus for her current interstitial lung disease, and she notes that she had a trach for quite a while. As it relates to her GI symptoms, she has no current abdominal pain nausea or vomitingand feels like she could eatin that respect she is requesting a regular diet. Incidentally she also notes some right ear irritation and a little bit of a bloody discharge. Principal Diagnosis covid Discharge Exam In general she is awake and alert pleasant no distress. HEENT normocephalic atraumatic mucous membranes moist. Breathing unlabored no accessory muscle use good effort. Skin shows no rashes no pallor or icterus. Osteopathic/musculoskeletal shows left sided greater than right mid thoracic paraspinal musculature to be high tone, tender, decreased range of motiondirect myofascialimproved some, patient tolerated well. Neuro without focal deficits. Discharge Data Allergies Allergy/AdvReac Type Severity Reaction Status Date / Time house dust Allergy Intermediate Difficulty Verified 04/29/22 17:29 Breathing mold Allergy Intermediate ASTHMA Verified 04/29/22 17:29 ATTACK Consultations 04/29/22 17:23 ED Decision to Admit Stat 05/01/22 17:30 Consult Patient Services Routine Hospital Course (1) COVID: (1) COVID: Plan: COVID-pneumonia causing what appears to be acute on chronic hypoxic respiratory failure present on admission. Was treated with Decadron and remdesivir, as well as pulmonary toilet with her home inhalers/nebulizers as needed. Given her interstitial lung diseasecovered with azithromycin for atypicals given her chest x-ray and lung exam. Of note, her chest x-ray does show some findings that would be consistent with pulmonary edema, but given her overall clinical pictureI doubt she is volume overloaded (hypotensive, was given fluid boluses in the ER with no adverse outcome on her respiratory status, and an alternate explanation for chest x-ray appearance being her interstitial lung disease with a superimposed COVID plus or minus atypical pneumonia and improving without pulmonary edema management). Stable for home home inhalers, 5 more days of dexamethasone, supplemental oxygen (she has at home), outpatient follow-up (2) Diabetes: Plan: Last A1c about 2 months ago was 7.7. Continue Rybelsus, and discussed with patient risks and benefits of creating a short term escalated regimen while on steroids, versus knowing that it would be short-term and the likelihood of any acute "fall out" would be quite lowwe agreed to simply proceed with her home regimen while she is on the steroids knowing that the sugars should improve fairly quickly after she is done. (3) Transaminitis: Plan: Likely related to COVID. Far under the threshold of 10 times upper limits of normal to be able to safely utilize remdesivirand have trended down overall, outpatient follow-up (4) Interstitial lung disease: Plan: See above, complicates her clinical picture, continue home inhalers (5) Chronic respiratory failure with hypoxia: (6) COPD (chronic obstructive pulmonary disease): (7) Hypertension: Plan: Okay to resume home meds at home (8) History of pulmonary embolism: Plan: Not entirely clear when this isrecords note that it goes at least as far back as 2008 the last time she had clotting, she recalls that during COVIDI cannot find records of this. At any rate, she is not on chronic anticoagulationutilized Lovenox 40 mg daily for prophylaxis (9) Constipation: Plan: Continue home meds (10) DVT prophylaxis: Plan: As above (11) Discharge planning issues: Plan: Safe/stable for home (12) somatic dysfunction rib/thoracic region - OMT as above (2) Diabetes: (3) Transaminitis: (4) Interstitial lung disease: (5) Chronic respiratory failure with hypoxia: (6) COPD (chronic obstructive pulmonary disease): (7) Hypertension: (8) History of pulmonary embolism: (9) Constipation: (10) DVT prophylaxis: (11) Discharge planning issues: Total Time Total Time Spent Total Time Spent (In Minutes): Less than 30 Discharge Plan Discharge Items Patient Disposition: Home - Self-Care Reason For Visit: COVID, HYPOXIA Discharge Diagnosis: covid - improving Condition on Discharge: Serious Activity: Resume your previous activity Non-emergency contact: Primary Care Provider Call non-emergency contact if: you have any medication questions, your symptoms worsen and your temperature is above 101 Follow-up/Referrals: Tyrell Mancini MD [Primary Care Provider] - Diet: Carb Consistent or DM2 Addtl Attending Provider Instructions: COVID -Fortunately you recovered very quickly. Unlike how sick you got with H1 N1 flu, fortunately this really behaved more as a mild pneumonia/severe bronchitis type picture. -It is very safe to get you home, take it easy. What we have seen is that people do tend to bounce back fairly slowly from COVIDit would not surprise me at all if it takes a month for you to feel back to totally normal. As you look at that, do not necessarily look for progress happening each dayit may happen but it may be too slow to noticeto that end I would look 3-4 days at a time, because at that point you can really probably see that you are getting better -We will not really need any specific antiviral treatment after discharge. We will finish out treatment as it relates to both the COVID and your COPD/chronic lung diseasewe will do 5 more days of steroids with dexamethasone, and finish out a course of antibiotics (really more for reduction of lung inflammation than true treatment of bacteria) with azithromycin. -Take the dexamethasone in the morning (for the short-term your sugars may run a bit higher, but as we discussed the other day, given the only be on it for 5 more days, it is probably better to just know that your sugars will be high for the next few days, rather than creating new/complicated but temporary regimen -You can take the azithromycin at the same time as the dexamethasoneit will be dosed tomorrow and Thursday and then you will be done -Continue regular inhalers/oxygen/everything else as you have normally been doing Pending Studies at Discharge: No Stand-Alone Forms: [facility], Smoking Cessation Medications and DC Order Prescriptions: New azithromycin [Zithromax] 250 mg tablet 250 mg PO DAILY Qty: 2 0RF dexamethasone 6 mg tablet 6 mg PO DAILY Qty: 5 0RF Continued trazodone 100 mg tablet 200 mg PO HS Qty: 180 3RF (DME) blood-glucose meter [OneTouch Verio Meter] Misc See Rx Instructions .ROUTE .MEDSUPPLY Qty: 1 0RF Rx Instructions: test 4 times daily (DME) lancets [OneTouch Delica Plus Lancet] 30 gauge misc See Rx Instructions .ROUTE .MEDSUPPLY Qty: 100 3RF Rx Instructions: As directed (DME) Oxygen Home Liters Per Minute See Rx Instructions .MEDSUPPLY Qty: 1 0RF Rx Instructions: Please get patient set up for oxygen, concentrator, poc, ok to do necessary testing, necessary supplies, lifetime need. codeine-guaifenesin 10-100 mg/5 mL liquid 5 ml PO Q6H PRN (Reason: cough) Qty: 236 0RF ropinirole 1 mg tablet 1 mg PO HS Qty: 30 11RF famotidine 20 mg tablet 20 mg PO BID Qty: 180 1RF gabapentin 300 mg capsule 300 mg PO TID Qty: 270 3RF atorvastatin 80 mg tablet 80 mg PO QAM Qty: 90 3RF Rx Instructions: for cholesterol to prevent heart attack and stroke albuterol sulfate 90 mcg/actuation HFA aerosol inhaler 2 puff INHALATION 6XD PRN (Reason: Wheezing) Qty: 8.5 3RF ondansetron 4 mg tablet,disintegrating 4 mg PO Q8H PRN (Reason: nausea and vomiting) Qty: 30 5RF naproxen 500 mg tablet 500 mg PO BID PRN (Reason: pain) Qty: 180 3RF diclofenac sodium 1 % gel 2 g TOP QID PRN (Reason: Pain) Qty: 100 3RF Rx Instructions: apply to single elbow, wrist or hand; for hand includes palm/fingers/back of hand (DME) OneTouch Verio test strips Strip See Rx Instructions .ROUTE .MEDSUPPLY Qty: 150 5RF Rx Instructions: test 4 times daily aspirin 81 mg tablet,delayed release (DR/EC) 81 mg PO DAILY Qty: 30 5RF hydrocodone-acetaminophen 5-325 mg tablet 2 tab PO Q6H PRN (Reason: Pain) Qty: 120 0RF Rx Instructions: Must last 15 days Motegrity 2 mg tablet 2 mg PO DAILY Qty: 90 3RF magnesium oxide 400 mg (241.3 mg magnesium) tablet 400 mg PO BID Qty: 60 5RF amlodipine 5 mg tablet 10 mg PO DAILY Qty: 60 5RF Rybelsus 3 mg tablet 3 mg PO DAILY Qty: 30 5RF cyclobenzaprine 10 mg tablet 10 mg PO TID PRN (Reason: muscle spasm) Qty: 90 1RF guaifenesin [Mucinex] 600 mg tablet extended release 12hr 600 mg PO Q12H Qty: 60 3RF Centrum Complete 18-400 mg-mcg tablet 1 tab PO QAM (DME) nebulizers Misc See Rx Instructions miscellaneous .MEDSUPPLY Qty: 1 0RF Rx Instructions: Use 4 x a day or as directed. Lifetime need. ipratropium-albuterol 0.5 mg-3 mg(2.5 mg base)/3 mL solution for nebulization 3 ml inhalation Q4H PRN (Reason: wheezing) Qty: 180 5RF sodium chloride 7 % solution for nebulization 4 ml inhalation BID Qty: 240 5RF fluticasone propionate [Flonase Allergy Relief] 50 mcg/actuation spray,suspension 1 spray INTNAS QAM PRN (Reason: Nasal Congestion) Qty: 16 11RF Rx Instructions: administer into each nostril melatonin 10 mg Tablet 10 mg PO HS PRN (Reason: Sleep) polyethylene glycol 3350 17 gram/dose powder 17 g PO QAM montelukast [Singulair] 10 mg tablet 10 mg PO HS metformin 500 mg tablet extended release 24 hr 1,000 mg PO BID Trelegy Ellipta 200-62.5-25 mcg blister with device 1 inh inhalation QAM diphenhydramine HCl [Benadryl] 25 mg Capsule 25 mg PO HS PRN (Reason: Allergy Symptoms) Glucosamine Chondroitin 550-30-1 mg Capsule 1 cap PO QAM tramadol 50 mg tablet 50 mg PO DAILY PRN (Reason: Pain) calcium polycarbophil [Fiber (calcium polycarbophil)] 625 mg Tablet 3,129 mg PO QAM docusate sodium [Colace] 100 mg Capsule 300 mg PO BID cinnamon bark [Cinnamon] 500 mg Capsule 500 mg PO QAM Probiotic 15 billion cell Capsule 30 cap PO QAM Vitamin C And Zinc Tablet 1 tab PO QAM No Action pantoprazole 40 mg tablet,delayed release (DR/EC) 40 mg PO BID Qty: 180 3RF Discharge Orders: Discharge Order (Routine); Ordered 05/02/22 Ordered By: Emory Yuen Admission Data Admit Date/Time: 04/29/22 18:04 Attending Provider: Emory Yuen Admit Provider: Emory Yuen Primary Care Provider: Tyrell Mancini Other Providers: Emory Yuen Other Interventions: Discharge Summary Assessment (RN) Last Done: 05/01/22 14:28 Coding Level of Care Code D/C DAY MANAGEMENT <30 MINS Diagnoses COVID U07.1 Diabetes E11.9 Transaminitis R74.01 Interstitial lung disease J84.9 Chronic respiratory failure with hypoxia J96.11 COPD (chronic obstructive pulmonary disease) J44.9 Hypertension I10 History of pulmonary embolism Z86.711 Constipation K59.00 DVT prophylaxis Z29.9 Discharge planning issues Z02.9 CPT Codes Musculoskeletal - Musculoskeletal: [address]iah [address] 1-2 Body regions ([id number])
== END 2022-05-02 13:35 | disposition home or self-care (01) | DRG 177 ==
LOC: ED 15:17 → 2S 18:04

== ENCOUNTER 2022-09-14 19:37 | Observation (INO) ==
[2022-09-14] MEDS ORDERED: LORazepam 2 MG/1 ML VIAL IV STA ×4 (19:54→23:46)
[2022-09-14] MEDS ORDERED: OLANZapine 10 MG/2.1 ML SDV IM STA ×2 (20:06→22:58)
[2022-09-14] MEDS ORDERED: OLANZapine 10 MG/2.1 ML SDV IM ONE (20:07)
[2022-09-14 20:25] LABS: Base Excess VBG 2.9 mEq/L; HCO3 VBG 30 mmol/L; Hematocrit (blood only) 42.4 % (34.1-44.9); Hemoglobin 14.9 g/dl (12.0-16.0); Mean Corpuscular Hemoglobin 30.2 pg (25.0-34.0); Mean Corpuscular Hgb Conc 35.1 g/dL (32.0-36.0); Mean Corpuscular Volume 85.8 fL (80.0-100.0); Mean Platelet Volume 10.8 fL (9.4-12.3); Oxygen Saturation VBG 75.6 %; PCO2 VBG 54 mmHg (38-50); PO2 VBG 49 mmHg; Platelet Count 276 K/uL (130-400); RDW Coefficient of Variation 13.1 % (11.5-14.5); RDW Standard Deviation 40.1 fL (36.4-46.3); Red Blood Count 4.94 M/uL (3.93-5.22); pH VBG 7.35 (7.36-7.41)
[2022-09-14 20:38] LABS: Appearance Urine Clear (Clear); Bilirubin Urine Negative (Negative); Blood Urine Negative (Negative); Color Urine Yellow; Glucose Urine UA 3+ (Negative); Ketones Urine Negative (Negative); Leukocyte Esterase Urine Negative (Negative); Nitrite Urine Negative (Negative); Protein Urine Negative (Negative); Specific Gravity Urine 1.009 (1.000-1.030); Urobilinogen Urine Negative (Negative)
[2022-09-14 20:56] LABS: Albumin Globulin Ratio 1.2 (0.9-2); Albumin Level 4.4 gm/dl (3.4-5.0); BUN Creatinine Ratio 17.9 (10-20); Bilirubin,Total 0.3 mg/dl (0.2-1.0); Creatinine Clr Calc Pharmacy 90.7 ml/min; Est GFR (African American) 113.1 ml/min; Est GFR (Non-African American) 97.6 ml/min; Globulin 3.8 gm/dl (2.5-4.0); Phosphorus 2.4 mg/dl (2.5-4.9); Potassium 4.2 mmol/L (3.5-5.1); Total Protein 8.2 gm/dl (6.0-8.3)
[2022-09-14 21:05] LABS: Basophils # (auto) 0.07 K/uL (0-0.2); Basophils % (auto) 0.7 %; Eosinophils # (auto) 0.35 K/uL (0-0.50); Eosinophils % (auto) 3.4 %; Immature Granulocytes # (auto) 0.03 K/uL (0.00-0.02); Immature Granulocytes % (auto) 0.3 %; Lymphocytes # (auto) 5.23 K/uL (1.2-3.4); Lymphocytes % (auto) 50.8 %; Monocytes # (auto) 0.74 K/uL (0.24-0.82); Monocytes % (auto) 7.2 %; Neutrophils # (auto) 3.88 K/uL (1.4-6.5); Neutrophils % (auto) 37.6 %
--- NOTE | 2022-09-14 21:58 | Emergency Department Note ---
Impression & Plan Agitation, Chronic respiratory failure with hypoxia, Hypoxia, Homelessness ED Provider Note NAME: JACOB PALM AGE: 57 SEX: F ARRIVES VIA: Ambulance INFORMANT: Patient ED PROVIDER(S): Isai Sam MD CHIEF COMPLAINT: Confusion, agitation, hypoxia. PLAN: Disposition: Admit MEDICAL DECISION MAKING: The patient is a 57-year-old woman, homeless, with a past medical history of pulmonary fibrosis, chronic respiratory failure with hypoxia, history of delirium secondary to hypoxia after her machine was nonfunctioning, mood disorder who presents to the emergency department via EMS after the patient was found to be altered and agitated in her hotel room where she had been staying with her dog. The patient was noted to have an O2 saturation in the 70s and her O2 machine was not functioning. Upon being placed on oxygen by EMS her O2 saturation improved to low 90s and her mental status was less agitated. However her mood did wax and wane and upon arrival emergency department was again agitated and combative, spitting at staff. Once her oxygen was stable her mood did improve somewhat though still with poor attention and some confusion. She did require Zyprexa and Ativan for her agitation. EKG without overt acute ischemia. CXR negative for acute cardiopulmonary process with chronic interstitial thickening c/w h/o pulmonary fibrosis per my preliminary review. WBC, H/H and platelets within normal limits. Glucose 347 however Chemistry without metabolic acidosis. VBG with pH of 7.35 and PCO2 of 54. Electrolytes without significant abnormality. LFTs are similar to prior. TSH within normal limits. UA without evidence of infection. COVID-19 RNA, CARLY test was negative. CT of the head was performed per preliminary stat read report and was negative for acute abnormalities. Suspect agitation related to prolonged hypoxia of unclear duration. Dr. Crump, [facility] hospitalist, to evaluate the patient for admission. Triage Nursing notes reviewed and agree them. Prior medical records reviewed Vital Signs: reviewed Differential diagnosis: Infection, hypoglycemia, electrolyte abnormalities, overdose, toxicologic, cardiac sources, intracerebral event, neurologic, trauma, as well as other pathologies. ER treatment provided: See below. Diagnostics interpreted by me: ECG: Sinus tachycardia, 113 bpm, no ectopy, no overt ST elevation or depression, QTC 477, QRS 84 Cardiac Monitoring: An order for continuous cardiac monitoring was placed and demonstrated inus tachycardia, 113 bpm, no ectopy. Laboratory studies: See below Imaging studies: See below Consultation(s): Case was discussed with Dr. Crump, [facility] hospitalist, who will evaluate the patient for admission. HPI: The patient is a 57-year-old woman, homeless, with a past medical history of pulmonary fibrosis, chronic respiratory failure with hypoxia, history of delirium secondary to hypoxia after her machine was nonfunctioning, mood disorder who presents to the emergency department via EMS after the patient was found to be altered and agitated in her hotel room where she had been staying with her dog. The patient was noted to have an O2 saturation in the 70s and her O2 machine was not functioning. Upon being placed on oxygen by EMS her O2 saturation improved to low 90s and her mental status was less agitated. However her mood did wax and wane and upon arrival emergency department was again agitated and combative, spitting at staff. Once her oxygen was stable her mood did improve somewhat though still with poor attention and some confusion. She did require Zyprexa and Ativan for her agitation. ROS: See above HPI for pertinent positives & negatives. A total of 10 systems reviewed and were otherwise negative. VITALS:See Below PHYSICAL EXAMINATION: GENERAL: Awake, alert, agitated-appearing, in no distress HENT: Normocephalic, atraumatic. Oropharynx with dry mucous membranes and otherw ise unremarkable. EYES: Normal conjunctiva. Sclera non-icteric. EOMI. No nystamgus. PEARRL. NECK: Supple. No nuchal rigidity. FROM. No JVD. RESPIRATORY: Scant intermittent wheeze otherwise clear to auscultation. CARDIAC: Tachycardic rate, normal rhythm. Extremities warm and well perfused. Pulses equal. ABDOMEN: Soft, non-distended. No tenderness to palpation. No rebound or guarding. No masses. RECTAL: Deferred. MUSCULOSKELETAL: Chest examination reveals no tenderness. The back is symmetrical on inspection without obvious abnormality. There is no CVA tenderness to palpation. No joint edema. LOWER EXTREMITIES: Calves are equal size bilaterally and non-tender. No edema. No discoloration. NEURO: Normal sensorium. No sensory or motor deficits noted. SKIN: No rash or jaundice noted. ED COURSE: Critical Care: I have personally spent greater than 35 minutes of critical care time in the direct management of this patient. This includes bedside care, interpretation of diagnostic studies, and testing, discussion with consultants, patient, and family members, and other required patient management activities. This 35 minutes is in excess of all separately billable procedures. Isai Sam MD Past Med/Surg History Medical History Acute pancreatitis Admitted April 2021- had MRCP at that time- recommended EUS six weeks from April admission Aggressive behavior Anxiety Asthma with exacerbation last used inhaler yesterday Chronic constipation COPD (chronic obstructive pulmonary disease) Depression Diabetes type 2, uncontrolled Hgb A1C 04/25/21 was 7.0 Dysphagia DIFFICULTY SWALLOWING MEDS Foot pain rt tendon "problems" GERD (gastroesophageal reflux disease) Hiatal hernia History of ARDS 2009 (ADMITTED TO [facility] [place]) (SECONDARY TO H1N1 INFECTION)- CONTINUES ON SUPPLEMENTAL OXYGEN History of congestive heart failure 2019 History of ETOH abuse last drink 05-20-20 History of Guillain-Rochester syndrome DX'D 2009 History of pulmonary embolism 2008 per PCP records - no AC HTN (hypertension) Interstitial lung disease Follows with pulm Lumbar degenerative disc disease Lumbar radiculopathy Mood disorder On home oxygen therapy 2-3L O2 WITH EXERTION AND AT HS Post traumatic stress disorder Pulmonary HTN Restless leg syndrome Surgical History History of anesthesia reaction "I HAVE A HARD TIME BREATHING AFTER ANESTHESIA" History of colonoscopy 2019 History of esophagogastroduodenoscopy (EGD) History of laparoscopic cholecystectomy History of radiofrequency ablation procedure for cardiac arrhythmia 2005-NO F/U CARDIOLOGY History of sinus surgery History of tracheostomy resolved 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 Family History Grandmother (Paternal) Family history of diabetes mellitus Mother , age 81 of uncertain causes No problems noted. Father , early 50s of lymphoma Lymphoma Other No family history of adverse response to anesthesia No significant family history Social History Smoking Status: Never smoker Second Hand Exposure: No; Hx Alcohol Use: No Hx Substance Use: No Preferred Language: Omani Communication Ability: Effective Visual Impairment: No Limitations Report Programmer Required: No Beliefs That Will Affect Care: Gnosticism Gnosticism Beliefs: only wants to have a blood transfusion as a last resort marital status: Single Current Living Situation: Alone Current Living Situation Comment: living in hotel current occupational status: disabled 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 How many Children do You have: 0 Feels Safe at Home: Declines to Answer Assistive Devices: Oxygen - at Night, Oxygen - Continuous and Scooter/Electric Scooter Allergies Allergies Allergy/AdvReac Type Severity Reaction Status Date / Time house dust Allergy Intermediate Difficulty Verified 09/02/22 16:11 Breathing mold Allergy Intermediate ASTHMA Verified 09/02/22 16:11 ATTACK Home Meds Home Medications Medication Instructions Recorded Confirmed melatonin 10 mg tablet 10 mg PO HS PRN Sleep 07/05/18 09/02/22 multivitamin-ferrous 1 tab PO QAM 09/21/19 09/02/22 fumarate-folic acid 18 mg-400 mcg tablet (Centrum Complete) polyethylene glycol 3350 17 17 g PO QAM 06/11/20 09/02/22 gram/dose oral powder diphenhydramine HCl 25 mg capsule 25 mg PO HS PRN Allergy Symptoms 06/21/21 09/02/22 (Benadryl) fluticasone fur. 200 mcg-umeclid 1 inh inhalation QAM interstitial 06/21/21 09/02/22 62.5 mcg-vilant 25 mcg lung disease inhalat.powder (Trelegy Ellipta) Lactobacillus acidophilus and 30 cap PO QAM 08/04/21 09/02/22 rhamnosus 15 billion cell capsule (Probiotic) Vitamin C And Zinc Tablet 1 tab PO QAM 08/04/21 09/02/22 calcium polycarbophil 625 mg 3,129 mg PO QAM 08/04/21 09/02/22 tablet (Fiber (calcium polycarbophil)) cinnamon bark 500 mg capsule 500 mg PO QAM 08/04/21 09/02/22 (Cinnamon) docusate sodium 100 mg capsule 300 mg PO BID 08/04/21 09/02/22 (Colace) Previous Rx's Medication Instructions Recorded sodium chloride 7 % for 4 ml inhalation BID #240 mL 08/28/20 nebulization blood-glucose meter (SparkbuyTouch #1 ea 10/22/20 Verio Meter) lancets 30 gauge (OneTouch Delica #100 ea 01/14/21 Plus Lancet) Oxygen Home #1 ea 02/04/21 nebulizers #1 ea 05/06/21 ipratropium 0.5 mg-albuterol 3 mg 3 ml inhalation Q4H PRN wheezing 08/22/21 (2.5 mg base)/3 mL nebulization #180 mL soln ropinirole 1 mg tablet 1 mg PO HS #30 tabs 10/22/21 gabapentin 300 mg capsule 300 mg PO TID Pain #270 caps 12/16/21 atorvastatin 80 mg tablet 80 mg PO QAM #90 tabs 12/19/21 ondansetron 4 mg disintegrating 4 mg PO Q8H PRN nausea and 02/05/22 tablet vomiting #30 tabs naproxen 500 mg tablet 500 mg PO BID PRN pain #180 tabs 02/17/22 blood sugar diagnostic ([facility] 03/24/22 Verio test strips) guaifenesin 600 mg tablet, 600 mg PO Q12H #60 tabs 04/14/22 extended release 12 hr (Mucinex) prucalopride 2 mg tablet 2 mg PO DAILY #90 tabs 04/24/22 (Motegrity) amlodipine 5 mg tablet 10 mg PO DAILY #60 tabs 04/25/22 cyclobenzaprine 10 mg tablet 10 mg PO TID PRN muscle spasm #90 04/25/22 tabs magnesium oxide 400 mg (241.3 mg 400 mg PO BID #60 tabs 04/25/22 magnesium) tablet pantoprazole 40 mg tablet,delayed 40 mg PO BID #180 tabs 05/02/22 release diclofenac sodium 1 % topical gel 2 g topical QID PRN Pain #100 grams 05/16/22 metformin 500 mg tablet,extended 1,000 mg PO BID #180 tabs 06/12/22 release 24 hr aspirin 81 mg tablet,delayed 81 mg PO DAILY #90 tabs 06/17/22 release montelukast 10 mg tablet 10 mg PO HS #90 tabs 06/17/22 (Singulair) albuterol sulfate 90 mcg/actuation 2 puff inhalation 6XD PRN Wheezing 07/22/22 aerosol inhaler #8.5 grams fluticasone propionate 50 1 spray intranasal QAM PRN Nasal 07/22/22 mcg/actuation nasal Congestion #16 grams spray,suspension (Flonase Allergy Relief) semaglutide 3 mg tablet (Rybelsus) 3 mg PO DAILY #30 tabs 08/15/22 hydrocodone 5 mg-acetaminophen 325 2 tab PO Q6H PRN pain #120 tabs 09/04/22 mg tablet Results & Data (ED) Vital Signs Vital Signs - 24 hr 09/14/22 19:31 09/14/22 20:29 09/14/22 20:04 Pulse Rate 112 H 120 H Pulse Rate [Apical] Pulse Rate from SpO2 Sensor 121 H Pulse Rhythm Regular Pulse Strength Normal Respiratory Rate 18 26 H Respiratory Effort / Characteristics Spontaneous Respiratory Depth Normal Respiratory Pattern Regular Blood Pressure 119/83 Blood Pressure [Right Arm] Blood Pressure Mean 95 Blood Pressure Mean [Right Arm] Blood Pressure Position Lying Pulse Oximetry 97 96 98 Oxygen Delivery Method Oxymask Oxymask Oxygen Flow Rate 15 15 Sepsis Recent Fever Within 48 Hours No Sepsis New/Unexplained Change in Mental Status Yes Sepsis Action Taken by Nursing Physician Notified 09/14/22 20:13 09/14/22 20:13 09/14/22 20:30 Pulse Rate 114 H Pulse Rate [Apical] Pulse Rate from SpO2 Sensor 114 H Pulse Rhythm Pulse Strength Respiratory Rate 22 Respiratory Effort / Characteristics Respiratory Depth Respiratory Pattern Blood Pressure 119/83 104/63 Blood Pressure [Right Arm] Blood Pressure Mean 95 76 Blood Pressure Mean [Right Arm] Blood Pressure Position Pulse Oximetry 96 Oxygen Delivery Method Oxygen Flow Rate Sepsis Recent Fever Within 48 Hours Sepsis New/Unexplained Change in Mental Status Sepsis Action Taken by Nursing 09/14/22 20:30 09/14/22 20:42 09/14/22 20:42 Pulse Rate 109 H 111 H Pulse Rate [Apical] Pulse Rate from SpO2 Sensor 109 H 111 H Pulse Rhythm Pulse Strength Respiratory Rate 22 23 Respiratory Effort / Characteristics Respiratory Depth Respiratory Pattern Blood Pressure 100/70 Blood Pressure [Right Arm] Blood Pressure Mean 80 Blood Pressure Mean [Right Arm] Blood Pressure Position Pulse Oximetry 97 97 Oxygen Delivery Method Oxygen Flow Rate Sepsis Recent Fever Within 48 Hours Sepsis New/Unexplained Change in Mental Status Sepsis Action Taken by Nursing 09/14/22 21:55 09/14/22 21:00 09/14/22 21:12 Pulse Rate 116 H Pulse Rate [Apical] Pulse Rate from SpO2 Sensor 116 H Pulse Rhythm Pulse Strength Respiratory Rate 25 H Respiratory Effort / Characteristics Respiratory Depth Respiratory Pattern Blood Pressure 120/75 Blood Pressure [Right Arm] Blood Pressure Mean 90 Blood Pressure Mean [Right Arm] Blood Pressure Position Pulse Oximetry 98 96 Oxygen Delivery Method Oxymask Oxymask Oxygen Flow Rate 4 4 Sepsis Recent Fever Within 48 Hours Sepsis New/Unexplained Change in Mental Status Sepsis Action Taken by Nursing 09/14/22 21:12 09/14/22 21:30 09/14/22 21:30 Pulse Rate 110 H Pulse Rate [Apical] Pulse Rate from SpO2 Sensor 110 H 86 Pulse Rhythm Pulse Strength Respiratory Rate 23 Respiratory Effort / Characteristics Respiratory Depth Respiratory Pattern Blood Pressure 100/86 Blood Pressure [Right Arm] Blood Pressure Mean 90 Blood Pressure Mean [Right Arm] Blood Pressure Position Pulse Oximetry 95 97 Oxygen Delivery Method Oxymask Oxygen Flow Rate 4 Sepsis Recent Fever Within 48 Hours Sepsis New/Unexplained Change in Mental Status Sepsis Action Taken by Nursing 09/14/22 22:00 09/14/22 22:30 09/14/22 22:46 Pulse Rate 101 H 101 H Pulse Rate [Apical] Pulse Rate from SpO2 Sensor 101 H 102 H 114 H Pulse Rhythm Pulse Strength Respiratory Rate 18 Respiratory Effort / Characteristics Respiratory Depth Respiratory Pattern Blood Pressure Blood Pressure [Right Arm] Blood Pressure Mean Blood Pressure Mean [Right Arm] Blood Pressure Position Pulse Oximetry 96 99 88 L Oxygen Delivery Method Oxymask Oxygen Flow Rate 4 3 Sepsis Recent Fever Within 48 Hours Sepsis New/Unexplained Change in Mental Status Sepsis Action Taken by Nursing 09/14/22 22:46 09/14/22 23:00 09/14/22 23:54 Pulse Rate 105 H Pulse Rate [Apical] 111 H Pulse Rate from SpO2 Sensor 106 H Pulse Rhythm Pulse Strength Respiratory Rate 23 24 Respiratory Effort / Characteristics Respiratory Depth Respiratory Pattern Blood Pressure 106/89 Blood Pressure [Right Arm] 126/70 Blood Pressure Mean 94 Blood Pressure Mean [Right Arm] 88 Blood Pressure Position Pulse Oximetry 93 94 Oxygen Delivery Method Oxymask Oxygen Flow Rate 4 4 Sepsis Recent Fever Within 48 Hours Sepsis New/Unexplained Change in Mental Status Sepsis Action Taken by Nursing Laboratory Data Attestation: I reviewed the patient's lab results. Result diagrams: 09/14/22 Unknown 09/14/22 Unknown Lab Results 09/14/22 09/14/22 09/14/22 Range/Units 20:00 20:00 20:23 WBC (4.8-10.8) K/ul RBC (3.93-5.22) M/uL Hgb (12.0-16.0) g/dl Hct (34.1-44.9) % MCV (80.0-100.0) fL MCH (25.0-34.0) pg MCHC (32.0-36.0) g/dL RDW Std Deviation (36.4-46.3) fL RDW Coeff of Joyce (11.5-14.5) % Plt Count (130-400) K/uL MPV (9.4-12.3) fL Immature Gran % (Auto) % Neut % (Auto) % Lymph % (Auto) % [place] % (Auto) % Eos % (Auto) % Baso % (Auto) % Neut # (Auto) (1.4-6.5) K/uL Lymph # (Auto) (1.2-3.4) K/uL [place] # (Auto) (0.24-0.82) K/uL Eos # (Auto) (0-0.50) K/uL Baso # (Auto) (0-0.2) K/uL Immature Gran # (Auto) (0.00-0.02) K/uL VBG pH (7.36-7.41) VBG pCO2 (38-50) mmHg VBG pO2 mmHg VBG HCO3 mmol/L VBG O2 Saturation % VBG Base Excess mEq/L Sodium (136-145) mmol/L Potassium (3.5-5.1) mmol/L Chloride (98-107) mmol/L Carbon Dioxide (21-32) mmol/L Anion Gap (3-11) BUN (6-23) mg/dl Creatinine (0.6-1.2) mg/dl Est Cr Clr Drug Dosing ml/min Est GFR ( Amer) ml/min Est GFR (Non-Af Amer) ml/min BUN/Creatinine Ratio (10-20) Glucose (70-99(Fasting)) mg/dl Calcium (8.5-10.1) mg/dl Phosphorus (2.5-4.9) mg/dl Magnesium (1.7-2.4) mg/dl Total Bilirubin (0.2-1.0) mg/dl AST (13-39) U/L ALT (7-52) U/L Alkaline Phosphatase (34-104) U/L Ammonia (18-72) umol/L Total Protein (6.0-8.3) gm/dl Albumin (3.4-5.0) gm/dl Globulin (2.5-4.0) gm/dl Albumin/Globulin Ratio (0.9-2) TSH (0.300-4.500) uIu/ml Urine Color Yellow Urine Appearance Clear (Clear) Urine pH 6.0 (4.5-7.5) Ur Specific Roosevelt 1.009 (1.000-1.030) Urine Protein Negative (Negative) Urine Glucose (UA) 3+ H (Negative) Urine Ketones Negative (Negative) Urine Blood Negative (Negative) Urine Nitrite Negative (Negative) Urine Bilirubin Negative (Negative) Urine Urobilinogen Negative (Negative) Ur Leukocyte Esterase Negative (Negative) Urine Opiates Screen Neg (Neg) Ur Methadone, Qual Neg (Neg) Urine Barbiturates Neg (Neg) Ur Phencyclidine (PCP) Neg (Neg) U Amphetamin/Meth Scrn Neg (Neg) MDMA (Ecstasy) Screen Neg (Neg) U Benzodiazepines Scrn Neg (Neg) Ur Cocaine Metabolite Neg (Neg) U Marijuana (THC) Screen Neg (Neg) Ethyl Alcohol mg/dL (<10.0) mg/dl SARS-CoV-2, RNA, NAAT NEGATIVE (NEGATIVE) 09/14/22 09/14/22 09/14/22 Range/Units 22:45 23:57 Unknown WBC 10.30 (4.8-10.8) K/ul RBC 4.94 (3.93-5.22) M/uL Hgb 14.9 (12.0-16.0) g/dl Hct 42.4 (34.1-44.9) % MCV 85.8 (80.0-100.0) fL MCH 30.2 (25.0-34.0) pg MCHC 35.1 (32.0-36.0) g/dL RDW Std Deviation 40.1 (36.4-46.3) fL RDW Coeff of Joyce 13.1 (11.5-14.5) % Plt Count 276 (130-400) K/uL MPV 10.8 (9.4-12.3) fL Immature Gran % (Auto) 0.3 % Neut % (Auto) 37.6 % Lymph % (Auto) 50.8 % [place] % (Auto) 7.2 % Eos % (Auto) 3.4 % Baso % (Auto) 0.7 % Neut # (Auto) 3.88 (1.4-6.5) K/uL Lymph # (Auto) 5.23 H (1.2-3.4) K/uL [place] # (Auto) 0.74 (0.24-0.82) K/uL Eos # (Auto) 0.35 (0-0.50) K/uL Baso # (Auto) 0.07 (0-0.2) K/uL Immature Gran # (Auto) 0.03 H (0.00-0.02) K/uL VBG pH (7.36-7.41) VBG pCO2 (38-50) mmHg VBG pO2 mmHg VBG HCO3 mmol/L VBG O2 Saturation % VBG Base Excess mEq/L Sodium (136-145) mmol/L Potassium (3.5-5.1) mmol/L Chloride (98-107) mmol/L Carbon Dioxide (21-32) mmol/L Anion Gap (3-11) BUN (6-23) mg/dl Creatinine (0.6-1.2) mg/dl Est Cr Clr Drug Dosing ml/min Est GFR ( Amer) ml/min Est GFR (Non-Af Amer) ml/min BUN/Creatinine Ratio (10-20) Glucose (70-99(Fasting)) mg/dl Calcium (8.5-10.1) mg/dl Phosphorus (2.5-4.9) mg/dl Magnesium (1.7-2.4) mg/dl Total Bilirubin (0.2-1.0) mg/dl AST (13-39) U/L ALT (7-52) U/L Alkaline Phosphatase (34-104) U/L Ammonia 38.0 (18-72) umol/L Total Protein (6.0-8.3) gm/dl Albumin (3.4-5.0) gm/dl Globulin (2.5-4.0) gm/dl Albumin/Globulin Ratio (0.9-2) TSH (0.300-4.500) uIu/ml Urine Color Urine Appearance (Clear) Urine pH (4.5-7.5) Ur Specific Roosevelt (1.000-1.030) Urine Protein (Negative) Urine Glucose (UA) (Negative) Urine Ketones (Negative) Urine Blood (Negative) Urine Nitrite (Negative) Urine Bilirubin (Negative) Urine Urobilinogen (Negative) Ur Leukocyte Esterase (Negative) Urine Opiates Screen (Neg) Ur Methadone, Qual (Neg) Urine Barbiturates (Neg) Ur Phencyclidine (PCP) (Neg) U Amphetamin/Meth Scrn (Neg) MDMA (Ecstasy) Screen (Neg) U Benzodiazepines Scrn (Neg) Ur Cocaine Metabolite (Neg) U Marijuana (THC) Screen (Neg) Ethyl Alcohol mg/dL 209.1 H (<10.0) mg/dl SARS-CoV-2, RNA, NAAT (NEGATIVE) 09/14/22 09/14/22 09/14/22 Range/Units Unknown Unknown Unknown WBC (4.8-10.8) K/ul RBC (3.93-5.22) M/uL Hgb (12.0-16.0) g/dl Hct (34.1-44.9) % MCV (80.0-100.0) fL MCH (25.0-34.0) pg MCHC (32.0-36.0) g/dL RDW Std Deviation (36.4-46.3) fL RDW Coeff of Joyce (11.5-14.5) % Plt Count (130-400) K/uL MPV (9.4-12.3) fL Immature Gran % (Auto) % Neut % (Auto) % Lymph % (Auto) % [place] % (Auto) % Eos % (Auto) % Baso % (Auto) % Neut # (Auto) (1.4-6.5) K/uL Lymph # (Auto) (1.2-3.4) K/uL [place] # (Auto) (0.24-0.82) K/uL Eos # (Auto) (0-0.50) K/uL Baso # (Auto) (0-0.2) K/uL Immature Gran # (Auto) (0.00-0.02) K/uL VBG pH 7.35 L (7.36-7.41) VBG pCO2 54 H (38-50) mmHg VBG pO2 49 mmHg VBG HCO3 30 mmol/L VBG O2 Saturation 75.6 % VBG Base Excess 2.9 mEq/L Sodium 140 (136-145) mmol/L Potassium 4.2 (3.5-5.1) mmol/L Chloride 102 (98-107) mmol/L Carbon Dioxide 25 (21-32) mmol/L Anion Gap 13 H (3-11) BUN 12 (6-23) mg/dl Creatinine 0.67 (0.6-1.2) mg/dl Est Cr Clr Drug Dosing 90.7 ml/min Est GFR ( Amer) 113.1 ml/min Est GFR (Non-Af Amer) 97.6 ml/min BUN/Creatinine Ratio 17.9 (10-20) Glucose 347 H* (70-99(Fasting)) mg/dl Calcium 9.0 (8.5-10.1) mg/dl Phosphorus 2.4 L (2.5-4.9) mg/dl Magnesium 2.0 (1.7-2.4) mg/dl Total Bilirubin 0.3 (0.2-1.0) mg/dl AST 71 H (13-39) U/L ALT 82 H (7-52) U/L Alkaline Phosphatase 156 H (34-104) U/L Ammonia (18-72) umol/L Total Protein 8.2 (6.0-8.3) gm/dl Albumin 4.4 (3.4-5.0) gm/dl Globulin 3.8 (2.5-4.0) gm/dl Albumin/Globulin Ratio 1.2 (0.9-2) TSH 0.816 (0.300-4.500) uIu/ml Urine Color Urine Appearance (Clear) Urine pH (4.5-7.5) Ur Specific [place] (1.000-1.030) Urine Protein (Negative) Urine Glucose (UA) (Negative) Urine Ketones (Negative) Urine Blood (Negative) Urine Nitrite (Negative) Urine Bilirubin (Negative) Urine Urobilinogen (Negative) Ur Leukocyte Esterase (Negative) Urine Opiates Screen (Neg) Ur Methadone, Qual (Neg) Urine Barbiturates (Neg) Ur Phencyclidine (PCP) (Neg) U Amphetamin/Meth Scrn (Neg) MDMA (Ecstasy) Screen (Neg) U Benzodiazepines Scrn (Neg) Ur Cocaine Metabolite (Neg) U Marijuana (THC) Screen (Neg) Ethyl Alcohol mg/dL (<10.0) mg/dl SARS-CoV-2, RNA, NAAT (NEGATIVE) Administered Medications Discontinued Medications Sodium Chloride (Nss 1000ml) 1,000 mls @ 999 mls/hr IV .Q1H1M EN Stop: 09/14/22 23:27 Last Infusion: 09/15/22 00:09 Dose: 0 mls/hr Documented By: Admin: 09/14/22 22:54 Dose: 999 mls/hr Documented By: SIDRA Insulin Glargine (Lantus Per Unit Charge) 10 units SQ NOW STA Stop: 09/14/22 22:27 Last Admin: 09/14/22 22:50 Dose: 10 units Documented By: SIDRA Co-signed By: ERIS Insulin Human Regular (Novolin-R Insulin Per Unit Charge) 7 units IV NOW STA Stop: 09/14/22 22:27 Last Admin: 09/14/22 22:50 Dose: 7 units Documented By: SIDRA Co-signed By: ERIS Lorazepam (Lorazepam 2 Mg/1 Ml Vial) 1 mg IV NOW STA Stop: 09/14/22 19:55 Last Admin: 09/14/22 19:58 Dose: 1 mg Documented By: DARRELL Lorazepam (Lorazepam 2 Mg/1 Ml Vial) 1 mg IV NOW STA Stop: 09/14/22 20:07 Last Admin: 09/14/22 20:08 Dose: 1 mg Documented By: DARRELL Lorazepam (Lorazepam 2 Mg/1 Ml Vial) 1 mg IV NOW STA Stop: 09/14/22 21:03 Last Admin: 09/14/22 21:10 Dose: 1 mg Documented By: ISI Lorazepam (Lorazepam 2 Mg/1 Ml Vial) 2 mg IV NOW STA Stop: 09/14/22 23:47 Last Admin: 09/14/22 23:54 Dose: 2 mg Documented By: YISSEL Lorazepam (Lorazepam 2 Mg/1 Ml Vial) Confirm Administered Dose 2 mg .ROUTE .STK- MED ONE Stop: 09/14/22 23:50 Last Admin: 09/15/22 00:00 Dose: Not Given Documented By: YISSEL Olanzapine (Olanzapine 10 Mg/2.1 Ml Sdv) 10 mg IM NOW STA Stop: 09/14/22 20:07 Last Admin: 09/14/22 20:11 Dose: 10 mg Documented By: DARRELL Olanzapine (Olanzapine 10 Mg/2.1 Ml Sdv) Confirm Administered Dose 10 mg IM .STK-MED ONE Stop: 09/14/22 20:08 Last Admin: 09/14/22 20:12 Dose: Not Given Documented By: DARRELL Ziprasidone (Ziprasidone 20 Mg/Ml Sdv) 10 mg IM NOW STA Stop: 09/14/22 23:10 Last Admin: 09/14/22 23:38 Dose: 20 mg Documented By: ERIS Imaging Data My Impression: CXR: No acute cardiopulmonary process with stable chronic interstitial thickening consistent with the patient's history of pulmonary fibrosis prior preliminary review. Radiologist's Impression: STATRAD: Preliminary Findings Only See Final Report For Complete Findings CT HEAD: No intracranial hemorrhage, mass-effect or midline shift. No abnormal extra axial fluid collection. No evidence of acute infarct. Mild periventricular white matter hypodensities are most consistent with chronic microangiopathy. The visualized paranasal sinuses and mastoid air cells are clear. No fracture. Radiologist: Georgette Cruz MD Study ready at 21:35 and initial results transmitted at 21:55 Discharge Plan Visit Data Chief Complaint: Altered Mental Status Stated Complaint: AMS, Hyperglycemia ED Provider: Isai Sam Forms Stand Alone Forms: My [facility] Prescriptions Prescriptions: No Action (DME) blood-glucose meter [OneTouch Verio Meter] Misc See Rx Instructions .ROUTE .MEDSUPPLY Qty: 1 0RF Rx Instructions: test 4 times daily (DME) lancets [OneTouch Delica Plus Lancet] 30 gauge misc See Rx Instructions .ROUTE .MEDSUPPLY Qty: 100 3RF Rx Instructions: As directed (DME) Oxygen Home Liters Per Minute See Rx Instructions .MEDSUPPLY Qty: 1 0RF Rx Instructions: Please get patient set up for oxygen, concentrator, poc, ok to do necessary testing, necessary supplies, lifetime need. ropinirole 1 mg tablet 1 mg PO HS Qty: 30 11RF gabapentin 300 mg capsule 300 mg PO TID Qty: 270 3RF atorvastatin 80 mg tablet 80 mg PO QAM Qty: 90 3RF Rx Instructions: PT UNSURE IF TAKING, LAST FILLED 06/22/22 FOR 90 DAYS/90 PILLS. for cholesterol to prevent heart attack and stroke ondansetron 4 mg tablet,disintegrating 4 mg PO Q8H PRN (Reason: nausea and vomiting) Qty: 30 5RF naproxen 500 mg tablet 500 mg PO BID PRN (Reason: pain) Qty: 180 3RF (DME) OneTouch Verio test strips Strip See Rx Instructions .ROUTE .MEDSUPPLY Qty: 150 5RF Rx Instructions: test 4 times daily Motegrity 2 mg tablet 2 mg PO DAILY Qty: 90 3RF magnesium oxide 400 mg (241.3 mg magnesium) tablet 400 mg PO BID Qty: 60 5RF amlodipine 5 mg tablet 10 mg PO DAILY Qty: 60 5RF cyclobenzaprine 10 mg tablet 10 mg PO TID PRN (Reason: muscle spasm) Qty: 90 1RF pantoprazole 40 mg tablet,delayed release (DR/EC) 40 mg PO BID Qty: 180 3RF diclofenac sodium 1 % gel 2 g TOP QID PRN (Reason: Pain) Qty: 100 3RF Rx Instructions: apply to single elbow, wrist or hand; for hand includes palm/fingers/back of hand metformin 500 mg tablet extended release 24 hr 1,000 mg PO BID Qty: 180 3RF aspirin 81 mg tablet,delayed release (DR/EC) 81 mg PO DAILY Qty: 90 1RF montelukast [Singulair] 10 mg tablet 10 mg PO HS Qty: 90 1RF Rybelsus 3 mg tablet 3 mg PO DAILY Qty: 30 5RF hydrocodone-acetaminophen 5-325 mg tablet 2 tab PO Q6H PRN (Reason: pain) Qty: 120 0RF Rx Instructions: Must last 15 days guaifenesin [Mucinex] 600 mg tablet extended release 12hr 600 mg PO Q12H Qty: 60 3RF Centrum Complete 18-400 mg-mcg tablet 1 tab PO QAM (DME) nebulizers Misc See Rx Instructions miscellaneous .MEDSUPPLY Qty: 1 0RF Rx Instructions: Use 4 x a day or as directed. Lifetime need. ipratropium-albuterol 0.5 mg-3 mg(2.5 mg base)/3 mL solution for nebulization 3 ml inhalation Q4H PRN (Reason: wheezing) Qty: 180 5RF sodium chloride 7 % solution for nebulization 4 ml inhalation BID Qty: 240 5RF albuterol sulfate 90 mcg/actuation HFA aerosol inhaler 2 puff INHALATION 6XD PRN (Reason: Wheezing) Qty: 8.5 3RF fluticasone propionate [Flonase Allergy Relief] 50 mcg/actuation spray,maicol pension 1 spray INTNAS QAM PRN (Reason: Nasal Congestion) Qty: 16 11RF Rx Instructions: administer into each nostril melatonin 10 mg Tablet 10 mg PO HS PRN (Reason: Sleep) polyethylene glycol 3350 17 gram/dose powder 17 g PO QAM Trelegy Ellipta 200-62.5-25 mcg blister with device 1 inh inhalation QAM diphenhydramine HCl [Benadryl] 25 mg Capsule 25 mg PO HS PRN (Reason: Allergy Symptoms) calcium polycarbophil [Fiber (calcium polycarbophil)] 625 mg Tablet 3,129 mg PO QAM docusate sodium [Colace] 100 mg Capsule 300 mg PO BID cinnamon bark [Cinnamon] 500 mg Capsule 500 mg PO QAM Probiotic 15 billion cell Capsule 30 cap PO QAM Vitamin C And Zinc Tablet 1 tab PO QAM
[2022-09-14] MEDS ORDERED: NovoLIN-R INSULIN PER UNIT CHARGE IV STA (22:26)
[2022-09-14] MEDS ORDERED: LANTUS PER UNIT CHARGE SQ STA (22:26)
[2022-09-14 22:27] LABS: Amphetamines+Metham, Urine Neg (Neg); Barbiturates, Urine Neg (Neg); Benzodiazepine, Urine Neg (Neg); Cocaine, Urine Neg (Neg); MDMA (Ecstacy), Urine Neg (Neg); Methadone, Urine Neg (Neg); Opiate, Urine Neg (Neg); Phencyclidine, Urine Neg (Neg)
[2022-09-14] MEDS ORDERED: SODIUM CHLORIDE 0.9% 1000ML 1,000 ML IV SCH (22:27)
--- NOTE | 2022-09-14 22:30 | History & Physical Report ---
Date of Service September 14, 2022 Assessment & Plan (1) Agitation: Plan: Patient presents from a hotel which she was staying with acute agitation, combative. Hypoxic on arrival now improved on 3L Oxymask. Patient has history of agitation and delirium associated with hypoxia. Remainder of workup thus far is unremarkable. No obvious source of infection. Electrolytes are largely normal. CT of the head with chronic microvascular changes. Presently sedated with Ativan and Olanzapine. History of EtOH abuse. Uncertain if withdrawal may be reason for patient's agitation -Check Utox, Etoh, Acetaminophen and Salicylate levels -Frequent orientation -1:1 sitter -AWSS with IV Ativan PRN, banana bag x 1 now as well as 100mg IV Thiamine -Thiamine and Folic Acid daily (2) Hypoxia: Plan: Patient's O2 at home reportedly not functioning properly. Saturations adequate now. -Maintain Oxygen -Nebs as below (3) Anxiety: Plan: Patient does not appear to be on any medications for her anxiety, depression or mood disorder (4) GERD (gastroesophageal reflux disease): Plan: -Continue Protonix 40mg po BID (5) Restless leg syndrome: Plan: -continue Ropinirole (6) Interstitial lung disease: Plan: -Continue Guaifenesin -Continue Trelegy Ellipta -Continue 7% saline nebs -DuoNeb PRN -Albuterol PRN -Continue supplemental O2 - goal saturation 90% (7) Dyslipidemia: Plan: -Continue Atorvastatin 80mg po daily (8) Diabetes type 2, uncontrolled: Plan: With hyperglycemia. -IV insulin 7u now and Lantus 10u -1L NSS -Lantus 10u BID and ISS -Goal blood sugar 110 - 160 -Continue neurontin F/E/N - NSS x 1 L bolus, electroltyes WNL, NPO for now Ppx - Lovenox Code - Full per record review, unable to discuss with patient at present Dispo -Admit to medical History of Present Illness Chief Complaint: confusion Primary Care Provider: Tyrell Mancini MD Pippa Schmitt is a 57yo female with history of pulmonary fibrosis secondary to H1N1 influenza in 2008 on home O2, DM, HTN, EtOH abuse, Anxiety and mood disorder. Patient was seen in the ER most recently on 09/01/22 on a 302 warrant for suicidal threats and EtOH intoxication following eviction from her home. She was stabilized and cleared by Psychiatry and remained in the ER for several days before being successfully transported to the care of her friend in [place] on 09/03/22 . Patient returns to the ER tonight via EMS after being found altered and agitated in her hotel. She was reportedly hypoxic with saturations in the 70's by EMS and her portable O2 was not functioning properly. She was provided with supplemental O2 by EMS with improvement in saturations to the 90's as well as improvement in her mental state. Upon arrival to the ER she is HD stable. She is presently on 3L Oxymask with saturations of 99-100%. Patient combative in the ER, agitated and spitting at staff. She was sedated with Ativan 1mg IV x 3 doses and Olanzapine 10mg IM x 1. Presently resting comfortably asleep. ER Course: Ativan 1mg IV x 3 doses Olanzapine 10mg IM x 1 dose Ordered: 7u IV regular insulin 10u Lantus 1L NSS Allergies Allergy/AdvReac Type Severity Reaction Status Date / Time house dust Allergy Intermediate Difficulty Verified 09/02/22 16:11 Breathing mold Allergy Intermediate ASTHMA Verified 09/02/22 16:11 ATTACK Home Medications Medication Instructions Recorded Confirmed Type melatonin 10 mg tablet 10 mg PO HS PRN Sleep 07/05/18 09/02/22 History multivitamin-ferrous 1 tab PO QAM 09/21/19 09/02/22 History fumarate-folic acid 18 mg-400 mcg tablet (Centrum Complete) polyethylene glycol 3350 17 17 g PO QAM 06/11/20 09/02/22 History gram/dose oral powder sodium chloride 7 % for 4 ml inhalation BID #240 mL 08/28/20 09/02/22 Rx nebulization blood-glucose meter (OneTouch #1 ea 10/22/20 09/02/22 Rx Verio Meter) lancets 30 gauge (OneTouch Delica #100 ea 01/14/21 09/02/22 Rx Plus Lancet) Oxygen Home #1 ea 02/04/21 09/02/22 Rx nebulizers #1 ea 05/06/21 09/02/22 Rx diphenhydramine HCl 25 mg capsule 25 mg PO HS PRN Allergy Symptoms 06/21/21 09/02/22 History (Benadryl) fluticasone fur. 200 mcg-umeclid 1 inh inhalation QAM interstitial 06/21/21 09/02/22 History 62.5 mcg-vilant 25 mcg lung disease inhalat.powder (Trelegy Ellipta) Lactobacillus acidophilus and 30 cap PO QAM 08/04/21 09/02/22 History rhamnosus 15 billion cell capsule (Probiotic) Vitamin C And Zinc Tablet 1 tab PO QAM 08/04/21 09/02/22 History calcium polycarbophil 625 mg 3,129 mg PO QAM 08/04/21 09/02/22 History tablet (Fiber (calcium polycarbophil)) cinnamon bark 500 mg capsule 500 mg PO QAM 08/04/21 09/02/22 History (Cinnamon) docusate sodium 100 mg capsule 300 mg PO BID 08/04/21 09/02/22 History (Colace) ipratropium 0.5 mg-albuterol 3 mg 3 ml inhalation Q4H PRN wheezing 08/22/21 09/02/22 Rx (2.5 mg base)/3 mL nebulization #180 mL soln ropinirole 1 mg tablet 1 mg PO HS #30 tabs 10/22/21 09/02/22 Rx gabapentin 300 mg capsule 300 mg PO TID Pain #270 caps 12/16/21 09/02/22 Rx atorvastatin 80 mg tablet 80 mg PO QAM #90 tabs 12/19/21 09/02/22 Rx ondansetron 4 mg disintegrating 4 mg PO Q8H PRN nausea and 02/05/22 09/02/22 Rx tablet vomiting #30 tabs naproxen 500 mg tablet 500 mg PO BID PRN pain #180 tabs 02/17/22 09/02/22 Rx blood sugar diagnostic (OneTouch #150 ea 03/24/22 09/02/22 Rx Verio test strips) guaifenesin 600 mg tablet, 600 mg PO Q12H #60 tabs 04/14/22 09/02/22 Rx extended release 12 hr (Mucinex) prucalopride 2 mg tablet 2 mg PO DAILY #90 tabs 04/24/22 09/02/22 Rx (Motegrity) amlodipine 5 mg tablet 10 mg PO DAILY #60 tabs 04/25/22 09/02/22 Rx cyclobenzaprine 10 mg tablet 10 mg PO TID PRN muscle spasm #90 04/25/22 09/02/22 Rx tabs magnesium oxide 400 mg (241.3 mg 400 mg PO BID #60 tabs 04/25/22 09/02/22 Rx magnesium) tablet pantoprazole 40 mg tablet,delayed 40 mg PO BID #180 tabs 05/02/22 09/02/22 Rx release diclofenac sodium 1 % topical gel 2 g topical QID PRN Pain #100 grams 05/16/22 09/02/22 Rx metformin 500 mg tablet,extended 1,000 mg PO BID #180 tabs 06/12/22 09/02/22 Rx release 24 hr aspirin 81 mg tablet,delayed 81 mg PO DAILY #90 tabs 06/17/22 09/02/22 Rx release montelukast 10 mg tablet 10 mg PO HS #90 tabs 06/17/22 09/02/22 Rx (Singulair) albuterol sulfate 90 mcg/actuation 2 puff inhalation 6XD PRN Wheezing 07/22/22 09/02/22 Rx aerosol inhaler #8.5 grams fluticasone propionate 50 1 spray intranasal QAM PRN Nasal 07/22/22 09/02/22 Rx mcg/actuation nasal Congestion #16 grams spray,suspension (Flonase Allergy Relief) semaglutide 3 mg tablet (Rybelsus) 3 mg PO DAILY #30 tabs 08/15/22 09/02/22 Rx hydrocodone 5 mg-acetaminophen 325 2 tab PO Q6H PRN pain #120 tabs 09/04/22 Rx mg tablet Past Med/Surg History Medical History Acute pancreatitis Admitted April 2021- had MRCP at that time- recommended EUS six weeks from April admission Aggressive behavior Anxiety Asthma with exacerbation last used inhaler yesterday Chronic constipation COPD (chronic obstructive pulmonary disease) Depression Diabetes type 2, uncontrolled Hgb A1C 04/25/21 was 7.0 Dysphagia DIFFICULTY SWALLOWING MEDS Foot pain rt tendon "problems" GERD (gastroesophageal reflux disease) Hiatal hernia History of ARDS 2009 (ADMITTED TO [facility] [place]) (SECONDARY TO H1N1 INFECTION)- CONTINUES ON SUPPLEMENTAL OXYGEN History of congestive heart failure 2019 History of ETOH abuse last drink 05-20-20 History of Guillain-Southington syndrome DX'D 2009 History of pulmonary embolism 2009 per PCP records - no AC HTN (hypertension) Interstitial lung disease Follows with pulm Lumbar degenerative disc disease Lumbar radiculopathy Mood disorder On home oxygen therapy 2-3L O2 WITH EXERTION AND AT HS Post traumatic stress disorder Pulmonary HTN Restless leg syndrome Surgical History History of anesthesia reaction "I HAVE A HARD TIME BREATHING AFTER ANESTHESIA" History of colonoscopy 2019 History of esophagogastroduodenoscopy (EGD) History of laparoscopic cholecystectomy History of radiofrequency ablation procedure for cardiac arrhythmia 2006-NO F/U CARDIOLOGY History of sinus surgery History of tracheostomy resolved 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 Family History Grandmother (Paternal) Family history of diabetes mellitus Mother , age 81 of uncertain causes No problems noted. Father , early 50s of lymphoma Lymphoma Other No family history of adverse response to anesthesia No significant family history Social History Smoking Status: Never smoker Second Hand Exposure: No; Hx Alcohol Use: No Hx Substance Use: No Preferred Language: [place] Island[place] Communication Ability: Effective Visual Impairment: No Limitations Systems Qa Analyst Required: No Beliefs That Will Affect Care: Christianity Christianity Beliefs: only wants to have a blood transfusion as a last resort marital status: Single Current Living Situation: Alone Current Living Situation Comment: living in hotel current occupational status: disabled 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 How many Children do You have: 0 Feels Safe at Home: Declines to Answer Assistive Devices: Oxygen - at Night, Oxygen - Continuous and Scooter/Electric Scooter Review of Systems Review of Systems: Unobtainable due to mental health condition Physical Exam Physical Exam: General: patient resting comfortably after receiving Ativan and Olanzapine, does not answer questions or follow commands at this time Skin: warm, dry, intact, no rashes or lesions HEENT: NC/AT, PERRL, anicteric sclera, conjunctiva without injection, external ear normal to inspection and nontender, nares patent, moist mucus membranes, dentition intact, no oropharyngeal lesions, neck supple, trachea midline, no LAD, no thyromegaly, no JVD Heart: +S1/S2, regular, tachycardic, no m/r/g Lungs: equal air entry bilaterally, no rales/rhonchi/wheezes anteriorly Abd: +BS, soft, ND, no masses/organomegaly/ascites Ext: warm, 2+ pulses in UE/LE bilaterally, no clubbing/cyanosis or edema Neuro: patient sedated after receiving Ativan and Olanzapine, PERRL, withdraws from painful stimuli. Neurologically intact grossly prior to sedation per discussion with nursing Results & Data Results & Data ([facility]) Vital Signs (Past 12 Hours) Vital Signs Pulse Resp BP Pulse Ox O2 Del Method O2 Flow Rate 09/14/22 22:00 101 H 18 96 Oxymask 4 09/14/22 21:30 97 09/14/22 21:30 100/86 09/14/22 21:12 110 H 23 95 Oxymask 4 09/14/22 21:12 120/75 09/14/22 21:00 116 H 25 H 96 Oxymask 4 09/14/22 21:55 98 Oxymask 4 09/14/22 20:42 100/70 09/14/22 20:42 111 H 23 97 09/14/22 20:30 109 H 22 97 09/14/22 20:30 104/63 09/14/22 20:13 114 H 22 96 09/14/22 20:13 119/83 09/14/22 20:04 120 H 26 H 98 09/14/22 20:29 96 Oxymask 15 09/14/22 19:31 112 H 18 119/83 97 Oxymask 15 Laboratory Results Laboratory Results WBC 10.30 K/ul (4.8-10.8) 09/14/22 Unknown RBC 4.94 M/uL (3.93-5.22) 09/14/22 Unknown Hgb 14.9 g/dl (12.0-16.0) 09/14/22 Unknown Hct 42.4 % (34.1-44.9) 09/14/22 Unknown MCV 85.8 fL (80.0-100.0) 09/14/22 Unknown MCH 30.2 pg (25.0-34.0) 09/14/22 Unknown MCHC 35.1 g/dL (32.0-36.0) 09/14/22 Unknown RDW Std Deviation 40.1 fL (36.4-46.3) 09/14/22 Unknown RDW Coeff of Joyce 13.1 % (11.5-14.5) 09/14/22 Unknown Plt Count 276 K/uL (130-400) 09/14/22 Unknown MPV 10.8 fL (9.4-12.3) 09/14/22 Unknown Immature Gran % (Auto) 0.3 % 09/14/22 Unknown Neut % (Auto) 37.6 % 09/14/22 Unknown Lymph % (Auto) 50.8 % 09/14/22 Unknown [place] % (Auto) 7.2 % 09/14/22 Unknown Eos % (Auto) 3.4 % 09/14/22 Unknown Baso % (Auto) 0.7 % 09/14/22 Unknown Neut # (Auto) 3.88 K/uL (1.4-6.5) 09/14/22 Unknown Lymph # (Auto) 5.23 K/uL (1.2-3.4) H 09/14/22 Unknown [place] # (Auto) 0.74 K/uL (0.24-0.82) 09/14/22 Unknown Eos # (Auto) 0.35 K/uL (0-0.50) 09/14/22 Unknown Baso # (Auto) 0.07 K/uL (0-0.2) 09/14/22 Unknown Immature Gran # (Auto) 0.03 K/uL (0.00-0.02) H 09/14/22 Unknown VBG pH 7.35 (7.36-7.41) L 09/14/22 Unknown VBG pCO2 54 mmHg (38-50) H 09/14/22 Unknown VBG pO2 49 mmHg 09/14/22 Unknown VBG HCO3 30 mmol/L 09/14/22 Unknown VBG O2 Saturation 75.6 % 09/14/22 Unknown VBG Base Excess 2.9 mEq/L 09/14/22 Unknown Sodium 140 mmol/L (136-145) 09/14/22 Unknown Potassium 4.2 mmol/L (3.5-5.1) 09/14/22 Unknown Chloride 102 mmol/L (98-107) 09/14/22 Unknown Carbon Dioxide 25 mmol/L (21-32) 09/14/22 Unknown Anion Gap 13 (3-11) H 09/14/22 Unknown BUN 12 mg/dl (6-23) 09/14/22 Unknown Creatinine 0.67 mg/dl (0.6-1.2) 09/14/22 Unknown Est Cr Clr Drug Dosing 90.7 ml/min 09/14/22 Unknown Est GFR ( Amer) 113.1 ml/min 09/14/22 Unknown Est GFR (Non-Af Amer) 97.6 ml/min 09/14/22 Unknown BUN/Creatinine Ratio 17.9 (10-20) 09/14/22 Unknown Glucose 347 mg/dl (70-99(Fasting)) H* 09/14/22 Unknown Calcium 9.0 mg/dl (8.5-10.1) 09/14/22 Unknown Phosphorus 2.4 mg/dl (2.5-4.9) L 09/14/22 Unknown Magnesium 2.0 mg/dl (1.7-2.4) 09/14/22 Unknown Total Bilirubin 0.3 mg/dl (0.2-1.0) 09/14/22 Unknown AST 71 U/L (13-39) H 09/14/22 Unknown ALT 82 U/L (7-52) H 09/14/22 Unknown Alkaline Phosphatase 156 U/L (34-104) H 09/14/22 Unknown Total Protein 8.2 gm/dl (6.0-8.3) 09/14/22 Unknown Albumin 4.4 gm/dl (3.4-5.0) 09/14/22 Unknown Globulin 3.8 gm/dl (2.5-4.0) 09/14/22 Unknown Albumin/Globulin Ratio 1.2 (0.9-2) 09/14/22 Unknown TSH 0.816 uIu/ml (0.300-4.500) 09/14/22 Unknown Urine Color Yellow 09/14/22 20:00 Urine Appearance Clear (Clear) 09/14/22 20:00 Urine pH 6.0 (4.5-7.5) 09/14/22 20:00 Ur Specific [place] 1.009 (1.000-1.030) 09/14/22 20:00 Urine Protein Negative (Negative) 09/14/22 20:00 Urine Glucose (UA) 3+ (Negative) H 09/14/22 20:00 Urine Ketones Negative (Negative) 09/14/22 20:00 Urine Blood Negative (Negative) 09/14/22 20:00 Urine Nitrite Negative (Negative) 09/14/22 20:00 Urine Bilirubin Negative (Negative) 09/14/22 20:00 Urine Urobilinogen Negative (Negative) 09/14/22 20:00 Ur Leukocyte Esterase Negative (Negative) 09/14/22 20:00 Urine Opiates Screen Neg (Neg) 09/14/22 20:00 Ur Methadone, Qual Neg (Neg) 09/14/22 20:00 Urine Barbiturates Neg (Neg) 09/14/22 20:00 Ur Phencyclidine (PCP) Neg (Neg) 09/14/22 20:00 U Amphetamin/Meth Scrn Neg (Neg) 09/14/22 20:00 MDMA (Ecstasy) Screen Neg (Neg) 09/14/22 20:00 U Benzodiazepines Scrn Neg (Neg) 09/14/22 20:00 Ur Cocaine Metabolite Neg (Neg) 09/14/22 20:00 U Marijuana (THC) Screen Neg (Neg) 09/14/22 20:00 SARS-CoV-2, RNA, NAAT NEGATIVE (NEGATIVE) 09/14/22 20:[address] Head - per STAT rad - no intracranial hemorrhage, mass-effect or midline shift. No abnormal extra axial fluid collection. No evidence of acute infarct. Mild periventricular white matter hypodensities are most consistent with chronic microangiopathy. The visualized paranasal sinuses and mastoid air cells are clear. No fracture. CXR - Per my interpretation - appears to have bilateral airspace opacities as well as reticular thickening. Similar to prior study from 04/2022 ECG Additional Comments: EKG per my interpretation reveals ST at 113 bpm, IO=592, qrs=84, chH=981, evidence of prior inferior infarct, no acute ischemic changes Code Status & VTE Plan VTE Prophylaxis Plan VTE Prophylaxis will be ordered: Yes PG Care Time/CCT Total # of Minutes Spent Total Time Spent with Patient: Total time spent is greater than 50% in coordination of care (as documented) at patient's floor/unit and/or counseling patient: Coding Level of Care Code 00534 Initial Inpt Care Lvl 3 Diagnoses Agitation R45.1 Hypoxia R09.02 Anxiety F41.9 GERD (gastroesophageal reflux disease) K21.9 Restless leg syndrome G25.81 Interstitial lung disease J84.9 Dyslipidemia E78.5 Diabetes type 2, uncontrolled E11.65
[2022-09-14] MEDS ORDERED: ZIPRASIDONE 20 MG/ML SDV IM STA ×2 (23:08→23:09)
[2022-09-14] MEDS ORDERED: LORazepam 2 MG/1 ML VIAL ONE (23:49)
[2022-09-15 00:40] LABS: Acetaminophen < 3 ug/ml (10-30); Salicylate < 3.0 mg/dl (3.0-30)
[2022-09-15] MEDS ORDERED: THIAMINE HCL 100 MG/ML 2 ML VIAL IM STA (00:40)
[2022-09-15] MEDS ORDERED: GLUCAGON FOR INJ 1 MG VIAL SQ PRN (00:40)
[2022-09-15] MEDS ORDERED: Ativan IV Alcohol Withdrawal--Active Protocol IV PRN (00:40)
[2022-09-15] MEDS ORDERED: ACETAMINOPHEN 325 MG TAB PO PRN (00:40)
[2022-09-15] MEDS ORDERED: GLUCOSE 10 TAB/TUBE PO PRN (00:40)
[2022-09-15] MEDS ORDERED: ALBUTEROL 0.083% NEBU SOLN 3 ML VIAL NEB PRN (00:40)
[2022-09-15] MEDS ORDERED: DEXTROSE 50% 50 ML SYRINGE IV PRN (00:40)
[2022-09-15] MEDS ORDERED: GLUCOSE 40% GEL 15 GM TUBE PO PRN (00:40)
[2022-09-15] MEDS ORDERED: CARBOHYDRATES FOR HYPOGLYCEMIA PO PRN (00:40)
[2022-09-15] MEDS ORDERED: LORazepam 2 MG/1 ML VIAL IV PRN ×3 (00:40)
[2022-09-15] MEDS ORDERED: MULTI-VITAMIN INFUSION 10 ML, THIAMINE HCL 100 MG, FOLIC ACID 1 MG in SODIUM CHLORIDE 0... IV ONE (01:00)
[2022-09-15] MEDS: ALBUT/IPRATROP 3MG/0.5MG NEB 3 ML VIAL NEB SCH ×6 (03:05→23:33)
[2022-09-15] MEDS: ENOXAPARIN INJ 40 MG/0.4 ML SYR SQ SCH (06:05)
[2022-09-15] MEDS: SODIUM CHLOR 7% 4 ML NEB INH SCH ×2 (07:39→20:48)
--- NOTE | 2022-09-15 08:14 | CT Scan Report ---
CT OF THE HEAD WITHOUT CONTRAST CLINICAL HISTORY: Altered mental status. COMPARISON STUDY: MRI of the brain and head CT February 20, 2022. CT DOSE: 1228.24 mGy.cm TECHNIQUE: Helical axial images of the head were obtained without IV contrast. Automated exposure con trol was utilized for the study. A dose lowering technique was utilized adhering to the principles o f ALARA. FINDINGS: No acute intracranial hemorrhage, midline shift or mass effect is present. White matter hyp odensities are similar to prior exam and favor small vessel disease. The ventricular system is unrema rkable. The basal cisterns are patent. No extra-axial collections are present. There are no findings to suggest acute dural sinus thrombosis or acute territorial infarct. No significant calvarial abnorm alities are present. Visualized portions of the sinuses and mastoid air cells are clear. IMPRESSION: No acute intracranial findings. No change in appearance of the brain. ACT 112: Negative or not required by law. Electronically signed by: Diogenes Marcos M.D. 09/15/2022 8:13 AM
[2022-09-15] MEDS: GABAPENTIN 300 MG CAP PO SCH ×3 (08:29→20:38)
[2022-09-15] MEDS: PANTOprazole 40 MG TAB PO SCH ×2 (08:30→20:39)
[2022-09-15] MEDS: UMECLIDINIUM/VILANTEROL 62.5/25MCG 7 PUFFS/INHALER INH SCH (08:30)
[2022-09-15] MEDS: amLODIPine BESYLATE 5 MG TAB PO SCH (08:31)
[2022-09-15] MEDS: ATORVASTATIN 40 MG TAB PO SCH (08:31)
[2022-09-15] MEDS: FLUTICASONE FUROATE 200MCG 14 PUFFS/INHALER INH SCH (08:31)
[2022-09-15] MEDS: ASPIRIN 81 MG ECTAB PO SCH (08:31)
[2022-09-15] MEDS: THIAMINE HCL 100 MG in SYRINGE 9 ML IV SCH (08:32)
[2022-09-15] MEDS: guaiFENesin 600 MG TABCR PO SCH ×2 (08:32→20:38)
[2022-09-15] MEDS: FOLIC ACID 1 MG in SYRINGE 9.8 ML IV SCH (08:32)
[2022-09-15] MEDS: POLYETHYLENE (MIRALAX) 17 GM PACK PO SCH (08:39)
[2022-09-15] MEDS: LANTUS PER UNIT CHARGE SQ SCH ×2 (08:43→22:22)
[2022-09-15] MEDS: INSULIN ASPART PER UNIT SC SCH ×4 (08:43→22:21)
[2022-09-15] MEDS ORDERED: NON-FORMULARY MEDICATION (Fluticasone-Umeclidin-Vilanter [Trelegy Ellipta] 200-62.5-25 mcg INH SCH (09:00)
--- NOTE | 2022-09-15 09:05 | XRay Report ---
XR chest 1V portable CLINICAL HISTORY: weakness COMPARISON STUDY: Chest CT August 07, 2021. Chest radiograph April 29, 2022. FINDINGS: Low lung volumes are again noted. This is unchanged. There is no pneumothorax or pleural ef fusion. Cardiac mediastinal silhouette is stable. Diffuse interstitial thickening is unchanged but th is represents residual lung disease. No superimposed consolidation is noted. The appearance of the ch est is similar to prior exams. IMPRESSION: 1. No acute cardiopulmonary findings. 2. No significant change in appearance of the chest. Chronic interstitial thickening consistent with interstitial lung disease. ACT 112: Negative or not required by law. Electronically signed by: Diogenes Marcos M.D. 09/15/2022 9:03 AM
[2022-09-15 09:34] LABS: Hematocrit (blood only) 40.3 % (34.1-44.9); Hemoglobin 13.6 g/dl (12.0-16.0); Mean Corpuscular Hemoglobin 29.9 pg (25.0-34.0); Mean Corpuscular Hgb Conc 33.7 g/dL (32.0-36.0); Mean Corpuscular Volume 88.6 fL (80.0-100.0); Mean Platelet Volume 10.5 fL (9.4-12.3); Platelet Count 222 K/uL (130-400); RDW Coefficient of Variation 13.2 % (11.5-14.5); RDW Standard Deviation 43.2 fL (36.4-46.3); Red Blood Count 4.55 M/uL (3.93-5.22); White Blood Count 7.61 K/ul (4.8-10.8)
[2022-09-15 10:03] LABS: Albumin Level 3.7 gm/dl (3.4-5.0); Bilirubin Direct 0.1 mg/dl (0-0.2); Bilirubin,Total 0.5 mg/dl (0.2-1.0); Calcium 8.4 mg/dl (8.5-10.1); Est GFR (African American) 124.5 ml/min; Est GFR (Non-African American) 107.4 ml/min; Potassium 4.2 mmol/L (3.5-5.1); Total Protein 6.8 gm/dl (6.0-8.3)
[2022-09-15 10:53] LABS: Estimated Average Glucose 183 mg/dl
--- NOTE | 2022-09-15 15:47 | Hospitalist Progress Note ---
Date of Service September 15, 2022 Assessment & Plan (1) Agitation: Plan: May have been related to hypoxia. Now stable. Psychiatry consultation requested and pending. Continue 1 on 1 observation for now. (2) Hypoxia: Plan: Chronic. Due to underlying chronic lung disease. Patient's O2 at home r eportedly was not functioning properly. Saturations are adequate now. Continue supplemental Oxygen. (3) Anxiety: Plan: Supportive care. Patient does not appear to chronically be on any medications for her anxiety, depression or mood disorder (4) GERD (gastroesophageal reflux disease): Plan: Continue Protonix 40mg po BID (5) Restless leg syndrome: Plan: continue Ropinirole (6) Interstitial lung disease: Plan: Stable. This has caused chronic hypoxic respiratory failure. Continue current medical management. (7) Dyslipidemia: Plan: Continue Atorvastatin 80mg po daily (8) Diabetes type 2, uncontrolled: Plan: With hyperglycemia on admission but this was a nonfasting glucose. ADA diet. Sliding scale coverage. Continue current home regimen Plan To be determined. Psychiatry consultation pending Admission and Anticipated Discharge Date Admission Date: September 14, 2022 Subjective The patient is alert. She is now wearing oxygen at 4 L with saturation 97%. She is asking for pain medication and probably has drug-seeking behavior. Will administer Toradol IV as needed. Psychiatry consultation requested since she has a longstanding history of psychiatric issues. Placement apparently is always a problem with her and she lives at a local motel. She is not agitated at the time of my examination. She was brought into the ED with an agitated state but was hypoxic at the time since her home oxygen delivery unit failed. Review of Systems Review of Systems: Patient unable to answer purposefully any questions related to review of systems Physical Exam Physical Exam: General-alert. Difficult to assess orientation due to underlying psychiatric issues which are chronic. No fevers, no chills HEENT-head atraumatic and normocephalic, pupils equal and reactive to light, extraocular muscles intact Neck-no lymphadenopathy or thyromegaly, trachea midline Chest-clear to auscultation. No rales ,wheezing or rhonchi Cardiac-regular rate and rhythm, normal S1 and S2 Abdomen-normal bowel sounds, nontender, no hepatosplenomegaly Extremities-no cyanosis, clubbing, or edema Neuro-no apparent focal motor deficits Psych-alert, oriented to name and place Results & Data Results & Data ([facility]) Vital Signs (Past 12 Hours) Vital Signs Temp Pulse Resp BP Pulse Ox O2 Del Method O2 Flow Rate 09/15/22 14:02 98 H 18 123/85 91 Nasal Cannula 3 09/15/22 11:00 36.7 C 90 18 114/78 96 Nasal Cannula 4 09/15/22 11:23 99 H 16 96 Nasal Cannula 4 09/15/22 08:00 Oxymask 4 09/15/22 07:30 36.7 C 96 H 18 105/69 95 Oxymask 4 09/15/22 07:41 96 H 18 95 Oxymask 4 Laboratory Results 09/15/22 09:00 09/15/22 09:00 PG Care Time/CCT Total # of Minutes Spent Total Time Spent with Patient: Total time spent is greater than 50% in coordination of care (as documented) at patient's floor/unit and/or counseling patient: Coding Level of Care Code 69730 Subseq Hosp Care Lvl 3 Diagnoses Agitation R45.1 Hypoxia R09.02 Anxiety F41.9 GERD (gastroesophageal reflux disease) K21.9 Restless leg syndrome G25.81 Interstitial lung disease J84.9 Dyslipidemia E78.5 Diabetes type 2, uncontrolled E11.65
--- NOTE | 2022-09-15 19:05 | Electrocardiogram Report ---
Test Reason : Blood Pressure : / mmHG Vent. Rate : 113 BPM Atrial Rate : 113 BPM P-R Int : 136 ms QRS Dur : 084 ms QT Int : 348 ms P-R-T Axes : 033 -26 015 degrees QTc Int : 477 ms Sinus tachycardia possible Inferior infarct (cited on or before 06-MAY-2014) Abnormal ECG When compared with ECG of 29-APR-2022 15:31, Criteria for Anterior infarct are no longer Present Nonspecific T wave abnormality no longer evident in Anterior leads Confirmed by Tyrell Ayon ([id number] on 09/15/2022 7:05:19 PM Referred By: REFERRED SELF Confirmed By:Lux Ayon
[2022-09-15] MEDS ORDERED: HYDROmorphone INJ 0.5 MG/0.5 ML SYR IV STA (19:54)
[2022-09-15] MEDS: KETOROLAC TROMETHAMINE 15 MG/ML VIAL IV PRN (20:15)
[2022-09-15] MEDS: MONTELUKAST SODIUM 10 MG TABLET PO SCH (20:37)
[2022-09-15] MEDS: rOPINIRole HCL 1 MG TABLET PO SCH (20:37)
[2022-09-15] MEDS: DICLOFENAC SOD 1% GEL 100 GM TUBE EXT SCH (22:26)
[2022-09-16] MEDS: KETOROLAC TROMETHAMINE 15 MG/ML VIAL IV PRN ×3 (02:34→21:39)
[2022-09-16] MEDS: ALBUT/IPRATROP 3MG/0.5MG NEB 3 ML VIAL NEB SCH ×2 (04:08→07:11)
[2022-09-16] MEDS: ENOXAPARIN INJ 40 MG/0.4 ML SYR SQ SCH (06:20)
[2022-09-16] MEDS: SODIUM CHLOR 7% 4 ML NEB INH SCH (07:11)
[2022-09-16] MEDS: PANTOprazole 40 MG TAB PO SCH ×2 (08:58→21:45)
[2022-09-16] MEDS: ATORVASTATIN 40 MG TAB PO SCH (08:58)
[2022-09-16] MEDS: guaiFENesin 600 MG TABCR PO SCH ×2 (08:58→21:44)
[2022-09-16] MEDS: amLODIPine BESYLATE 5 MG TAB PO SCH (08:59)
[2022-09-16] MEDS: ASPIRIN 81 MG ECTAB PO SCH (08:59)
[2022-09-16] MEDS: GABAPENTIN 300 MG CAP PO SCH ×3 (08:59→21:44)
[2022-09-16] MEDS: DICLOFENAC SOD 1% GEL 100 GM TUBE EXT SCH ×2 (08:59→21:43)
[2022-09-16] MEDS: POLYETHYLENE (MIRALAX) 17 GM PACK PO SCH (09:00)
[2022-09-16] MEDS: THIAMINE HCL 100 MG in SYRINGE 9 ML IV SCH (09:00)
[2022-09-16] MEDS: UMECLIDINIUM/VILANTEROL 62.5/25MCG 7 PUFFS/INHALER INH SCH (09:00)
[2022-09-16] MEDS: FOLIC ACID 1 MG in SYRINGE 9.8 ML IV SCH (09:06)
[2022-09-16] MEDS: FLUTICASONE FUROATE 200MCG 14 PUFFS/INHALER INH SCH (09:06)
[2022-09-16] MEDS: LANTUS PER UNIT CHARGE SQ SCH ×2 (09:17→21:37)
[2022-09-16] MEDS: INSULIN ASPART PER UNIT SC SCH ×4 (09:18→21:36)
[2022-09-16] MEDS ORDERED: SODIUM CHLOR 7% 4 ML NEB INH PRN (09:46)
--- NOTE | 2022-09-16 11:04 | Psychiatric Consultation ---
Date of Consultation September 16, 2022 Impression / Recommendations Impression 57 yo female, anxiety and sadness related to ongoing management of her diabetes and chronic 02 dependent lung disease while residing in a hotel. AMS is cleared and agitation appears related to intoxication and hypoxia rather than underlying psychosis or evens. There is no indication for inpatient psychiatric hospitalization. (1) Adjustment disorder: Plan liaison to communicate with CM to coordinate any community resources and for collateral on recent ETOH use as may be at risk for ETOH withdrawal while hospitalized. Risk Factors Assessment Do You Have Access To A Gun?: No Psych History Identifying Data 57 yo female residing temporarily in local hotel, previously local resident, last seen by consult service in 2019. Patient admit medically on 09/14/2022 for hypoxia/COPD exacerbation and agitation. Chief Complaint "They tell me I was hypoxic. I don't remember coming here". History of Present Illness Patient with a history of chronic fibrosis/COPD found with AMS and O2 sats in the 70s due to concentrator malfunction. Patient believes she was on the phone with her sister who alerted EMS. She did have a GABBY >200 but doesn't give consistent history about how much she has been drinking, states it was [place] Years [place]. Upon arrival to the ED/med floor she was confused and agitated and had received Haldol and Ativan prn. She does have a history of past EToh abuse and has been hospitalized for pancreatitis in the past but unclear if EToh related. Her MSE has been improving and she is no longer on 1-on-1. Of note she has a history of delirium with previous periods of hypoxia and last hospitalization in 2019 was related to a suicidal comment she made while medically hospitalized for a CHF exacerbation. She scored a 2 on PHQ-9 and denied suicidal ideation. She states that her sadness and anxiety are related to her housing situation as "Impossible to be homeless and on oxygen" and that she gets overwhelmed with appointments. She does have a CM but feels she has barriers to resuming outpatient therapy. She doesn't feel that SSRIs were helpful in the past (was on Celexa in 2019 and previous) and doesn't want to resume. Past Psychiatric History Outpatient Services: [facility] CM--[facility] Previous Psych Admissions: 2002, approximately 2011, 2019; [facility] Do You Have Access To A Gun?: No Describe Attempts in the Past: apparently OD on ETOH after a miscarriage in per records Past Medication Trials: see 2019 consult--benzo, Celexa, gabapentin Allergies Allergy/AdvReac Type Severity Reaction Status Date / Time house dust Allergy Intermediate Difficulty Verified 09/02/22 16:11 Breathing mold Allergy Intermediate ASTHMA Verified 09/02/22 16:11 ATTACK Home Medications Medication Instructions Recorded Confirmed Type melatonin 10 mg tablet 10 mg PO HS PRN Sleep 07/05/18 09/02/22 History multivitamin-ferrous 1 tab PO QAM 09/21/19 09/02/22 History fumarate-folic acid 18 mg-400 mcg tablet (Centrum Complete) polyethylene glycol 3350 17 17 g PO QAM 06/11/20 09/02/22 History gram/dose oral powder sodium chloride 7 % for 4 ml inhalation BID #240 mL 08/28/20 09/02/22 Rx nebulization blood-glucose meter (Element DesignsTouch #1 ea 10/22/20 09/02/22 Rx Verio Meter) lancets 30 gauge (OneTouch Delica #100 ea 01/14/21 09/02/22 Rx Plus Lancet) Oxygen Home #1 ea 02/04/21 09/02/22 Rx nebulizers #1 ea 05/06/21 09/02/22 Rx diphenhydramine HCl 25 mg capsule 25 mg PO HS PRN Allergy Symptoms 06/21/21 09/02/22 History (Benadryl) fluticasone fur. 200 mcg-umeclid 1 inh inhalation QAM interstitial 06/21/21 09/02/22 History 62.5 mcg-vilant 25 mcg lung disease inhalat.powder (Trelegy Ellipta) Lactobacillus acidophilus and 30 cap PO QAM 08/04/21 09/02/22 History rhamnosus 15 billion cell capsule (Probiotic) Vitamin C And Zinc Tablet 1 tab PO QAM 08/04/21 09/02/22 History calcium polycarbophil 625 mg 3,129 mg PO QAM 08/04/21 09/02/22 History tablet (Fiber (calcium polycarbophil)) cinnamon bark 500 mg capsule 500 mg PO QAM 08/04/21 09/02/22 History (Cinnamon) docusate sodium 100 mg capsule 300 mg PO BID 08/04/21 09/02/22 History (Colace) ipratropium 0.5 mg-albuterol 3 mg 3 ml inhalation Q4H PRN wheezing 08/22/21 09/02/22 Rx (2.5 mg base)/3 mL nebulization #180 mL soln ropinirole 1 mg tablet 1 mg PO HS #30 tabs 10/22/21 09/02/22 Rx gabapentin 300 mg capsule 300 mg PO TID Pain #270 caps 12/16/21 09/02/22 Rx atorvastatin 80 mg tablet 80 mg PO QAM #90 tabs 12/19/21 09/02/22 Rx ondansetron 4 mg disintegrating 4 mg PO Q8H PRN nausea and 02/05/22 09/02/22 Rx tablet vomiting #30 tabs naproxen 500 mg tablet 500 mg PO BID PRN pain #180 tabs 02/17/22 09/02/22 Rx blood sugar diagnostic (OneTouch #150 ea 03/24/22 09/02/22 Rx Verio test strips) guaifenesin 600 mg tablet, 600 mg PO Q12H #60 tabs 04/14/22 09/02/22 Rx extended release 12 hr (Mucinex) prucalopride 2 mg tablet 2 mg PO DAILY #90 tabs 04/24/22 09/02/22 Rx (Motegrity) amlodipine 5 mg tablet 10 mg PO DAILY #60 tabs 04/25/22 09/02/22 Rx cyclobenzaprine 10 mg tablet 10 mg PO TID PRN muscle spasm #90 04/25/22 09/02/22 Rx tabs magnesium oxide 400 mg (241.3 mg 400 mg PO BID #60 tabs 04/25/22 09/02/22 Rx magnesium) tablet pantoprazole 40 mg tablet,delayed 40 mg PO BID #180 tabs 05/02/22 09/02/22 Rx release diclofenac sodium 1 % topical gel 2 g topical QID PRN Pain #100 grams 05/16/22 09/02/22 Rx metformin 500 mg tablet,extended 1,000 mg PO BID #180 tabs 06/12/22 09/02/22 Rx release 24 hr aspirin 81 mg tablet,delayed 81 mg PO DAILY #90 tabs 06/17/22 09/02/22 Rx release montelukast 10 mg tablet 10 mg PO HS #90 tabs 06/17/22 09/02/22 Rx (Singulair) albuterol sulfate 90 mcg/actuation 2 puff inhalation 6XD PRN Wheezing 07/22/22 09/02/22 Rx aerosol inhaler #8.5 grams fluticasone propionate 50 1 spray intranasal QAM PRN Nasal 07/22/22 09/02/22 Rx mcg/actuation nasal Congestion #16 grams spray,suspension (Flonase Allergy Relief) semaglutide 3 mg tablet (Rybelsus) 3 mg PO DAILY #30 tabs 08/15/22 09/02/22 Rx hydrocodone 5 mg-acetaminophen 325 2 tab PO Q6H PRN pain #120 tabs 09/04/22 Rx mg tablet Personal History Beliefs That Will Affect Care: Yazidi Patient History Medical History Acute pancreatitis Admitted April 2021- had MRCP at that time- recommended EUS six weeks from April admission Aggressive behavior Anxiety Asthma with exacerbation last used inhaler yesterday Chronic constipation COPD (chronic obstructive pulmonary disease) Depression Diabetes type 2, uncontrolled Hgb A1C 04/25/21 was 7.0 Dysphagia DIFFICULTY SWALLOWING MEDS Foot pain rt tendon "problems" GERD (gastroesophageal reflux disease) Hiatal hernia History of ARDS 2009 (ADMITTED TO [facility] [place]) (SECONDARY TO H1N1 INFECTION)- CONTINUES ON SUPPLEMENTAL OXYGEN History of congestive heart failure 2019 History of ETOH abuse last drink 05-20-20 History of Guillain-Wellington syndrome DX'D 2009 History of pulmonary embolism 2008 per PCP records - no AC HTN (hypertension) Interstitial lung disease Follows with pulm Lumbar degenerative disc disease Lumbar radiculopathy Mood disorder On home oxygen therapy 2-3L O2 WITH EXERTION AND AT HS Post traumatic stress disorder Pulmonary HTN Restless leg syndrome Surgical History History of anesthesia reaction "I HAVE A HARD TIME BREATHING AFTER ANESTHESIA" History of colonoscopy 2019 History of esophagogastroduodenoscopy (EGD) History of laparoscopic cholecystectomy History of radiofrequency ablation procedure for cardiac arrhythmia 2005-NO F/U CARDIOLOGY History of sinus surgery History of tracheostomy resolved 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 Family History Grandmother (Paternal) Family history of diabetes mellitus Mother , age 81 of uncertain causes No problems noted. Father , early 50s of lymphoma Lymphoma Other No family history of adverse response to anesthesia No significant family history Social History Smoking Status: Never smoker Second Hand Exposure: No; Hx Alcohol Use: No Hx Substance Use: No Preferred Language: Indonesian Communication Ability: Unable Visual Impairment: No Limitations Hospice Plan Administrator Required: No Beliefs That Will Affect Care: Yazidi Yazidi Beliefs: only wants to have a blood transfusion as a last resort marital status: Single Current Living Situation: Alone Current Living Situation Comment: living in hotel current occupational status: disabled 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 How many Children do You have: 0 Feels Safe at Home: Declines to Answer Assistive Devices: Oxygen - at Night, Oxygen - Continuous and Scooter/Electric Scooter Physical Exam Psychiatric: Orientation: alert and oriented x 3 Apperance: appropriately dressed and appropriately groomed Eye Contact: good eye contact Motor Behavior: no abnormal motor movements Speech: normal rate/rhythm/volume of speech Affect: + depressed affect Mood: + depressed mood Thought Process: goal directed thought process Thought Content: reality based without delusions Suicidal Thoughts: denies suicidal thoughts Homicidal Thoughts: denies homicidal thoughts Hallucinations: no auditory hallucinations and no visual hallucinations Cognition: attention grossly intact and language grossly intact Estimated Intelligence: consistent with education level Insight: + limited insight Judgement: + limited judgement Vital Signs (Past 24 Hours): Last Vital Signs Temp 36.7 C 09/16/22 07:31 Pulse 73 09/16/22 07:31 Resp 18 09/16/22 07:31 BP 142/85 H 09/16/22 07:31 Pulse Ox 99 09/16/22 07:31 O2 Del Method 09/16/22 07:31 O2 Flow Rate 3 09/16/22 07:31 Review of Systems All systems reviewed & are unremarkable except as noted in HPI & below (cough, SOB) Results & Data (PSY) Laboratory Results Labs 09/14/22 09/14/22 09/14/22 20:00 20:00 20:23 WBC RBC Hgb Hct MCV MCH MCHC RDW Std Deviation RDW Coeff of Joyce Plt Count MPV Immature Gran % (Auto) Neut % (Auto) Lymph % (Auto) [place] % (Auto) Eos % (Auto) Baso % (Auto) Neut # (Auto) Lymph # (Auto) [place] # (Auto) Eos # (Auto) Baso # (Auto) Immature Gran # (Auto) Blood Smear Review VBG pH VBG pCO2 VBG pO2 VBG HCO3 VBG O2 Saturation VBG Base Excess Sodium Potassium Chloride Carbon Dioxide Anion Gap BUN Creatinine Est Cr Clr Drug Dosing Est GFR ( Amer) Est GFR (Non-Af Amer) BUN/Creatinine Ratio Glucose POC Glucose Estimat Average Glucose Hemoglobin A1c Calcium Phosphorus Magnesium Total Bilirubin Direct Bilirubin AST ALT Alkaline Phosphatase Ammonia Total Protein Albumin Globulin Albumin/Globulin Ratio TSH Urine Color Yellow Urine Appearance Clear Urine pH 6.0 Ur Specific [place] 1.009 Urine Protein Negative Urine Glucose (UA) 3+ H Urine Ketones Negative Urine Blood Negative Urine Nitrite Negative Urine Bilirubin Negative Urine Urobilinogen Negative Ur Leukocyte Esterase Negative Salicylates Urine Opiates Screen Neg Ur Methadone, Qual Neg Acetaminophen Urine Barbiturates Neg Ur Phencyclidine (PCP) Neg U Amphetamin/Meth Scrn Neg MDMA (Ecstasy) Screen Neg U Benzodiazepines Scrn Neg Ur Cocaine Metabolite Neg U Marijuana (THC) Screen Neg Ethyl Alcohol mg/dL SARS-CoV-2, RNA, NAAT NEGATIVE 09/14/22 09/14/22 09/14/22 22:45 23:57 23:57 WBC RBC Hgb Hct MCV MCH MCHC RDW Std Deviation RDW Coeff of Joyce Plt Count MPV Immature Gran % (Auto) Neut % (Auto) Lymph % (Auto) [place] % (Auto) Eos % (Auto) Baso % (Auto) Neut # (Auto) Lymph # (Auto) [place] # (Auto) Eos # (Auto) Baso # (Auto) Immature Gran # (Auto) Blood Smear Review VBG pH VBG pCO2 VBG pO2 VBG HCO3 VBG O2 Saturation VBG Base Excess Sodium Potassium Chloride Carbon Dioxide Anion Gap BUN Creatinine Est Cr Clr Drug Dosing Est GFR ( Amer) Est GFR (Non-Af Amer) BUN/Creatinine Ratio Glucose POC Glucose Estimat Average Glucose Hemoglobin A1c Calcium Phosphorus Magnesium Total Bilirubin Direct Bilirubin AST ALT Alkaline Phosphatase Ammonia 38.0 Total Protein Albumin Globulin Albumin/Globulin Ratio TSH Urine Color Urine Appearance Urine pH Ur Specific [place] Urine Protein Urine Glucose (UA) Urine Ketones Urine Blood Urine Nitrite Urine Bilirubin Urine Urobilinogen Ur Leukocyte Esterase Salicylates < 3.0 L Urine Opiates Screen Ur Methadone, Qual Acetaminophen < 3 L Urine Barbiturates Ur Phencyclidine (PCP) U Amphetamin/Meth Scrn MDMA (Ecstasy) Screen U Benzodiazepines Scrn Ur Cocaine Metabolite U Marijuana (THC) Screen Ethyl Alcohol mg/dL 209.1 H SARS-CoV-2, RNA, NAAT 09/14/22 09/14/22 09/14/22 Unknown Unknown Unknown WBC 10.30 RBC 4.94 Hgb 14.9 Hct 42.4 MCV 85.8 MCH 30.2 MCHC 35.1 RDW Std Deviation 40.1 RDW Coeff of Joyce 13.1 Plt Count 276 MPV 10.8 Immature Gran % (Auto) 0.3 Neut % (Auto) 37.6 Lymph % (Auto) 50.8 [place] % (Auto) 7.2 Eos % (Auto) 3.4 Baso % (Auto) 0.7 Neut # (Auto) 3.88 Lymph # (Auto) 5.23 H [place] # (Auto) 0.74 Eos # (Auto) 0.35 Baso # (Auto) 0.07 Immature Gran # (Auto) 0.03 H Blood Smear Review VBG pH VBG pCO2 VBG pO2 VBG HCO3 VBG O2 Saturation VBG Base Excess Sodium 140 Potassium 4.2 Chloride 102 Carbon Dioxide 25 Anion Gap 13 H BUN 12 Creatinine 0.67 Est Cr Clr Drug Dosing 90.7 Est GFR ( Amer) 113.1 Est GFR (Non-Af Amer) 97.6 BUN/Creatinine Ratio 17.9 Glucose 347 H* POC Glucose Estimat Average Glucose Hemoglobin A1c Calcium 9.0 Phosphorus 2.4 L Magnesium 2.0 Total Bilirubin 0.3 Direct Bilirubin AST 71 H ALT 82 H Alkaline Phosphatase 156 H Ammonia Total Protein 8.2 Albumin 4.4 Globulin 3.8 Albumin/Globulin Ratio 1.2 TSH 0.816 Urine Color Urine Appearance Urine pH Ur Specific [place] Urine Protein Urine Glucose (UA) Urine Ketones Urine Blood Urine Nitrite Urine Bilirubin Urine Urobilinogen Ur Leukocyte Esterase Salicylates Urine Opiates Screen Ur Methadone, Qual Acetaminophen Urine Barbiturates Ur Phencyclidine (PCP) U Amphetamin/Meth Scrn MDMA (Ecstasy) Screen U Benzodiazepines Scrn Ur Cocaine Metabolite U Marijuana (THC) Screen Ethyl Alcohol mg/dL SARS-CoV-2, RNA, NAAT 09/14/22 09/15/22 09/15/22 Unknown 08:21 09:00 WBC 7.61 RBC 4.55 Hgb 13.6 Hct 40.3 MCV 88.6 MCH 29.9 MCHC 33.7 RDW Std Deviation 43.2 RDW Coeff of Joyce 13.2 Plt Count 222 MPV 10.5 Immature Gran % (Auto) Neut % (Auto) Lymph % (Auto) [place] % (Auto) Eos % (Auto) Baso % (Auto) Neut # (Auto) Lymph # (Auto) [place] # (Auto) Eos # (Auto) Baso # (Auto) Immature Gran # (Auto) Blood Smear Review VBG pH 7.35 L VBG pCO2 54 H VBG pO2 49 VBG HCO3 30 VBG O2 Saturation 75.6 VBG Base Excess 2.9 Sodium Potassium Chloride Carbon Dioxide Anion Gap BUN Creatinine Est Cr Clr Drug Dosing Est GFR ( Amer) Est GFR (Non-Af Amer) BUN/Creatinine Ratio Glucose POC Glucose 161 H Estimat Average Glucose Hemoglobin A1c Calcium Phosphorus Magnesium Total Bilirubin Direct Bilirubin AST ALT Alkaline Phosphatase Ammonia Total Protein Albumin Globulin Albumin/Globulin Ratio TSH Urine Color Urine Appearance Urine pH Ur Specific [place] Urine Protein Urine Glucose (UA) Urine Ketones Urine Blood Urine Nitrite Urine Bilirubin Urine Urobilinogen Ur Leukocyte Esterase Salicylates Urine Opiates Screen Ur Methadone, Qual Acetaminophen Urine Barbiturates Ur Phencyclidine (PCP) U Amphetamin/Meth Scrn MDMA (Ecstasy) Screen U Benzodiazepines Scrn Ur Cocaine Metabolite U Marijuana (THC) Screen Ethyl Alcohol mg/dL SARS-CoV-2, RNA, NAAT 09/15/22 09/15/22 09/15/22 09:00 09:00 12:54 WBC RBC Hgb Hct MCV MCH MCHC RDW Std Deviation RDW Coeff of Joyce Plt Count MPV Immature Gran % (Auto) Neut % (Auto) Lymph % (Auto) [place] % (Auto) Eos % (Auto) Baso % (Auto) Neut # (Auto) Lymph # (Auto) [place] # (Auto) Eos # (Auto) Baso # (Auto) Immature Gran # (Auto) Blood Smear Review VBG pH VBG pCO2 VBG pO2 VBG HCO3 VBG O2 Saturation VBG Base Excess Sodium 143 Potassium 4.2 Chloride 107 Carbon Dioxide 27 Anion Gap 9 BUN 10 Creatinine 0.50 L Est Cr Clr Drug Dosing 120.0 Est GFR ( Amer) 124.5 Est GFR (Non-Af Amer) 107.4 BUN/Creatinine Ratio 20.0 Glucose 178 H POC Glucose 145 H Estimat Average Glucose 183 Hemoglobin A1c 8.0 H Calcium 8.4 L Phosphorus Magnesium Total Bilirubin 0.5 Direct Bilirubin 0.1 AST 96 H ALT 86 H Alkaline Phosphatase 101 Ammonia Total Protein 6.8 Albumin 3.7 Globulin Albumin/Globulin Ratio TSH Urine Color Urine Appearance Urine pH Ur Specific [place] Urine Protein Urine Glucose (UA) Urine Ketones Urine Blood Urine Nitrite Urine Bilirubin Urine Urobilinogen Ur Leukocyte Esterase Salicylates Urine Opiates Screen Ur Methadone, Qual Acetaminophen Urine Barbiturates Ur Phencyclidine (PCP) U Amphetamin/Meth Scrn MDMA (Ecstasy) Screen U Benzodiazepines Scrn Ur Cocaine Metabolite U Marijuana (THC) Screen Ethyl Alcohol mg/dL SARS-CoV-2, RNA, NAAT 09/15/22 09/15/22 09/16/22 17:20 20:09 08:05 WBC RBC Hgb Hct MCV MCH MCHC RDW Std Deviation RDW Coeff of Joyce Plt Count MPV Immature Gran % (Auto) Neut % (Auto) Lymph % (Auto) [place] % (Auto) Eos % (Auto) Baso % (Auto) Neut # (Auto) Lymph # (Auto) [place] # (Auto) Eos # (Auto) Baso # (Auto) Immature Gran # (Auto) Blood Smear Review VBG pH VBG pCO2 VBG pO2 VBG HCO3 VBG O2 Saturation VBG Base Excess Sodium Potassium Chloride Carbon Dioxide Anion Gap BUN Creatinine Est Cr Clr Drug Dosing Est GFR ( Amer) Est GFR (Non-Af Amer) BUN/Creatinine Ratio Glucose POC Glucose 179 H 168 H 166 H Estimat Average Glucose Hemoglobin A1c Calcium Phosphorus Magnesium Total Bilirubin Direct Bilirubin AST ALT Alkaline Phosphatase Ammonia Total Protein Albumin Globulin Albumin/Globulin Ratio TSH Urine Color Urine Appearance Urine pH Ur Specific [place] Urine Protein Urine Glucose (UA) Urine Ketones Urine Blood Urine Nitrite Urine Bilirubin Urine Urobilinogen Ur Leukocyte Esterase Salicylates Urine Opiates Screen Ur Methadone, Qual Acetaminophen Urine Barbiturates Ur Phencyclidine (PCP) U Amphetamin/Meth Scrn MDMA (Ecstasy) Screen U Benzodiazepines Scrn Ur Cocaine Metabolite U Marijuana (THC) Screen Ethyl Alcohol mg/dL SARS-CoV-2, RNA, NAAT Medications Administered Amlodipine Besylate (Amlodipine Besylate 5 Mg Tab) 10 mg PO DAILY [facility] Stop: 10/15/22 08:59 Last Admin: 09/16/22 08:59 Dose: 10 mg Documented By: Admin: 09/15/22 08:31 Dose: 10 mg Documented By: JLUIS Aspirin (Aspirin 81 Mg Ectab) 81 mg PO DAILY [facility] Stop: 10/15/22 08:59 Last Admin: 09/16/22 08:59 Dose: 81 mg Documented By: Admin: 09/15/22 08:31 Dose: 81 mg Documented By: JLUIS Atorvastatin Calcium (Atorvastatin 40 Mg Tab) 80 mg PO QAM [facility] Stop: 10/15/22 08:59 Last Admin: 09/16/22 08:58 Dose: 80 mg Documented By: Admin: 09/15/22 08:31 Dose: 80 mg Documented By: JLUIS Diclofenac Sodium (Diclofenac Sod 1% Gel 100 Gm Tube) 4 gm EXT BID [facility]; Protocol Stop: 10/15/22 21:59 Last Admin: 09/16/22 08:59 Dose: 4 gm Documented By: Admin: 09/15/22 22:26 Dose: 4 gm Documented By: RADHA Enoxaparin Sodium (Enoxaparin Inj 40 Mg/0.4 Ml Syr) 40 mg SQ Q24H [facility] Stop: 10/15/22 05:59 Last Admin: 09/16/22 06:20 Dose: 40 mg Documented By: Admin: 09/15/22 06:05 Dose: 40 mg Documented By: RADHA Fluticasone Furoate (Fluticasone Furoate 200mcg 14 Puffs/Inhaler) 1 puffs INH DAILY [facility] Stop: 10/15/22 08:59 Last Admin: 09/16/22 09:06 Dose: 1 puffs Documented By: Admin: 09/15/22 08:31 Dose: 1 puffs Documented By: JLUIS Gabapentin (Gabapentin 300 Mg Cap) 300 mg PO TID [facility] Stop: 10/15/22 08:59 Last Admin: 09/16/22 08:59 Dose: 300 mg Documented By: Admin: 09/15/22 20:38 Dose: 300 mg Documented By: JOSE FRANCISCO Admin: 09/15/22 15:10 Dose: 300 mg Documented By: Admin: 09/15/22 08:29 Dose: 300 mg Documented By: JLUIS Guaifenesin (Guaifenesin 600 Mg Tabcr) 600 mg PO Q12H [facility] Stop: 10/15/22 08:59 Last Admin: 09/16/22 08:58 Dose: 600 mg Documented By: Admin: 09/15/22 20:38 Dose: 600 mg Documented By: JOSE FRANCISCO Admin: 09/15/22 08:32 Dose: 600 mg Documented By: JLUIS Thiamine HCl 100 mg/ Syringe 10 mls @ 2 [facility]: 10/15/22 08:59 Last Admin: 09/16/22 09:00 Dose: 2 mls/min Documented By: Admin: 09/15/22 08:32 Dose: 2 mls/min Documented By: JLUIS Folic Acid 1 mg/ Syringe 10 mls @ 5 mls[facility] Stop: 10/15/22 08:59 Last Admin: 09/16/22 09:06 Dose: 5 mls/min Documented By: Admin: 09/15/22 08:32 Dose: 5 mls/min Documented By: JLUIS Insulin Aspart (Insulin Aspart Per Unit) 0 units SC ACHS [facility] Stop: 10/15/22 07:29 Last Admin: 09/16/22 09:18 Dose: 2 units Documented By: BERNADINE Co-signed By: BERTHA Admin: 09/15/22 22:21 Dose: 3 units Documented By: RADHA Co-signed By: JOSE FRANCISCO Admin: 09/15/22 18:22 Dose: 5 units Documented By: JLUIS Co-signed By: JOSE FRANCISCO Admin: 09/15/22 13:03 Dose: Not Given Documented By: Admin: 09/15/22 08:43 Dose: 5 units Documented By: JLUIS Co-signed By: BERTHA Insulin Glargine (Lantus Per Unit Charge) 10 units SQ BID [facility] Stop: 10/15/22 08:59 Last Admin: 09/16/22 09:17 Dose: 10 units Documented By: BERNADINE Co-signed By: BERTHA Admin: 09/15/22 22:22 Dose: 10 units Documented By: RADHA Co-signed By: JOSE FRANCISCO Admin: 09/15/22 08:43 Dose: 10 units Documented By: JLUIS Co-signed By: BERTHA Ketorolac Tromethamine (Ketorolac Tromethamine 15 Mg/Ml Vial) 15 mg IV Q6H PRN PRN Reason: Pain Stop: 09/20/22 15:41 Last Admin: 09/16/22 09:05 Dose: 15 mg Documented By: Admin: 09/16/22 02:34 Dose: 15 mg Documented By: Admin: 09/15/22 20:15 Dose: 15 mg Documented By: RADHA Montelukast Sodium (Montelukast Sodium 10 Mg Tablet) [address] [facility] Stop: 10/15/22 20:59 Last Admin: 09/15/22 20:37 Dose: 10 mg Documented By: JOSE FRANCISCO Pantoprazole Sodium (Pantoprazole 40 Mg Tab) 40 mg PO BID [facility] Stop: 10/15/22 08:59 Last Admin: 09/16/22 08:58 Dose: 40 mg Documented By: Admin: 09/15/22 20:39 Dose: 40 mg Documented By: JOSE FRANCISCO Admin: 09/15/22 08:30 Dose: 40 mg Documented By: JLUIS Polyethylene Glycol (Polyethylene (Miralax) 17 Gm Pack) 17 gm PO [facility] Stop: 10/15/22 08:59 Last Admin: 09/16/22 09:00 Dose: 17 gm Documented By: Admin: 09/15/22 08:39 Dose: 17 gm Documented By: JLUIS Ropinirole HCl (Ropinirole Hcl 1 Mg Tablet) [address] [facility] Stop: 10/15/22 20:59 Last Admin: 09/15/22 20:37 Dose: 1 mg Documented By: JOSE FRANCISCO Umeclidinium/Vilanterol (Umeclidinium/Vilanterol 62.5/25mcg 7 Puffs/Inhaler) 1 puffs INH DAILY [facility] Stop: 10/15/22 08:59 Last Admin: 09/16/22 09:00 Dose: 1 puffs Documented By: Admin: 09/15/22 08:30 Dose: 1 puffs Documented By: JLUIS Coding Level of Care Code 51435 Inpt Consult Level 3 Diagnoses Adjustment disorder F43.20
[2022-09-16] MEDS ORDERED: ONDANSETRON INJ 2 MG/ML 2 ML VIAL IV PRN (12:53)
--- NOTE | 2022-09-16 14:19 | XRay Report ---
XR knee LT 3V HISTORY: 57 years-old Female injury, pain . The left knee pain without reported trauma COMPARISON: 01/31/2022 TECHNIQUE: 3 views of the left knee FINDINGS: Mildly demineralized appearance of the bones. No acute fracture, dislocation, osseous erosion or sign ificant joint space narrowing. Unremarkable soft tissues without large joint effusion. IMPRESSION: No acute fracture or dislocation. ACT 112: Negative or not required by law. The above report was generated using voice recognition software. It may contain grammatical, syntax o r spelling errors. Electronically signed by: Johan Fountain M.D. 09/16/2022 2:18 PM
--- NOTE | 2022-09-16 14:30 | Hospitalist Progress Note ---
Date of Service September 16, 2022 Assessment & Plan (1) Agitation: Plan: May have been related to hypoxia. Now stable. Psychiatry consultation requested and pending. Currently 1 on 1 observation. (2) Hypoxia: Plan: Chronic. Due to underlying chronic lung disease. Patient's O2 at home reportedly was not functioning properly. Saturations are adequate now. Continue supplemental Oxygen. (3) Anxiety: Plan: Supportive care. Patient does not appear to chronically be on any medications for her anxiety, depression or mood disorder (4) GERD (gastroesophageal reflux disease): Plan: Continue Protonix 40mg po BID (5) Restless leg syndrome: Plan: continue Ropinirole (6) Interstitial lung disease: Plan: Stable. This has caused chronic hypoxic respiratory failure. Continue current medical management. (7) Dyslipidemia: Plan: Continue Atorvastatin 80mg po daily (8) Diabetes type 2, uncontrolled: Plan: With hyperglycemia on admission but this was a nonfasting glucose. ADA diet. Sliding scale coverage. Continue current home regimen (9) Left knee pain: Plan: The patient states that she had an injury prior to this admission. No significant physical findings. X-rays obtained and reveal only age-related arthritic changes. It does not appear that any further evaluation is warranted at this time. Plan To be determined. Psychiatry consultation pending Admission and Anticipated Discharge Date Admission Date: September 14, 2022 Subjective Alert. The patient is complaining of left knee pain but there are no significant physical findings. X-ray was obtained and reveals only age-related arthritis. No further evaluation is warranted at this time. Oxygen saturation 99% on 3 L. Awaiting psychiatric evaluation. Glucose mildly elevated but acceptable at 166 this morning Review of Systems Review of Systems: Patient unable to answer purposefully any questions related to review of systems. Physical Exam Physical Exam: General-alert. Difficult to assess orientation due to underlying psychiatric issues which are chronic. No fevers, no chills HEENT-head atraumatic and normocephalic, pupils equal and reactive to light, extraocular muscles intact Neck-no lymphadenopathy or thyromegaly, trachea midline Chest-clear to auscultation. No rales ,wheezing or rhonchi Cardiac-regular rate and rhythm, normal S1 and S2 Abdomen-normal bowel sounds, nontender, no hepatosplenomegaly Extremities-no cyanosis, clubbing, or edema Neuro-no apparent focal motor deficits Psych-alert, oriented to name and place Results & Data Results & Data ([facility]) Vital Signs (Past 12 Hours) Vital Signs Temp Pulse Resp BP Pulse Ox O2 Del Method O2 Flow Rate 09/16/22 08:00 36.7 C 73 18 142/85 H 97 Nasal Cannula 2 09/16/22 07:30 99 Nasal Cannula 3 09/16/22 07:30 Nasal Cannula 2 09/16/22 07:31 36.7 C 73 18 142/85 H 99 Nasal Cannula 3 Laboratory Results 09/15/22 09:00 09/15/22 09:00 PG Care Time/CCT Total # of Minutes Spent Total Time Spent with Patient: Total time spent is greater than 50% in coordination of care (as documented) at patient's floor/unit and/or counseling patient: Coding Level of Care Code 13689 SUB INP/OBS CARE 50 MIN Diagnoses Agitation R45.1 Hypoxia R09.02 Anxiety F41.9 GERD (gastroesophageal reflux disease) K21.9 Restless leg syndrome G25.81 Interstitial lung disease J84.9 Dyslipidemia E78.5 Diabetes type 2, uncontrolled E11.65 Left knee pain M25.562
[2022-09-16] MEDS: rOPINIRole HCL 1 MG TABLET PO SCH (21:44)
[2022-09-16] MEDS: MONTELUKAST SODIUM 10 MG TABLET PO SCH (21:45)
[2022-09-17] MEDS ORDERED: ACETAMINOPHEN 1,000 MG/100 ML VIAL IV STA (01:38)
[2022-09-17] MEDS: KETOROLAC TROMETHAMINE 15 MG/ML VIAL IV PRN ×4 (03:36→22:54)
[2022-09-17] MEDS: ENOXAPARIN INJ 40 MG/0.4 ML SYR SQ SCH (05:07)
[2022-09-17] MEDS: DICLOFENAC SOD 1% GEL 100 GM TUBE EXT SCH ×2 (07:39→21:05)
[2022-09-17] MEDS: POLYETHYLENE (MIRALAX) 17 GM PACK PO SCH (07:40)
[2022-09-17] MEDS: FOLIC ACID 1 MG in SYRINGE 9.8 ML IV SCH (07:40)
[2022-09-17] MEDS: THIAMINE HCL 100 MG in SYRINGE 9 ML IV SCH (07:40)
[2022-09-17] MEDS: ASPIRIN 81 MG ECTAB PO SCH (07:42)
[2022-09-17] MEDS: FLUTICASONE FUROATE 200MCG 14 PUFFS/INHALER INH SCH (07:42)
[2022-09-17] MEDS: UMECLIDINIUM/VILANTEROL 62.5/25MCG 7 PUFFS/INHALER INH SCH (07:42)
[2022-09-17] MEDS: guaiFENesin 600 MG TABCR PO SCH ×2 (07:42→21:08)
[2022-09-17] MEDS: PANTOprazole 40 MG TAB PO SCH ×2 (07:42→21:11)
[2022-09-17] MEDS: ATORVASTATIN 40 MG TAB PO SCH (07:43)
[2022-09-17] MEDS: amLODIPine BESYLATE 5 MG TAB PO SCH (07:43)
[2022-09-17] MEDS: GABAPENTIN 300 MG CAP PO SCH ×3 (07:43→21:07)
[2022-09-17] MEDS: INSULIN ASPART PER UNIT SC SCH ×4 (08:48→21:14)
[2022-09-17] MEDS: LANTUS PER UNIT CHARGE SQ SCH ×2 (08:48→21:13)
--- NOTE | 2022-09-17 17:47 | Hospitalist Progress Note ---
Date of Service September 17, 2022 Assessment & Plan (1) Agitation: Plan: Attending: Dr. Salmon Patient admitted 09/14/2022 with intoxication. She reports that she was all alone and depressed and does not remember coming to the emergency department or the early phase of her admission. She denies any suicidal ideation although she does admit to thoughts of suicide. This was stated in the presence of the psychiatric liaison RN. She has no acute complaints regarding her acute medical status and is currently medically stable for discharge pending housing which is being coordinated with case management. May have been related to hypoxia And or intoxication. Now stable. Psychiatry consulted. Appreciate Dr. Parham's input No longer requiring 1 on 1 observation. Outpatient follow up with psychiatry being coordinated by psychiatry Patient continues to be emotionally labile Will defer SSRIs or other agents to psychiatry (2) Hypoxia: Plan: Patient reports chronic COPD and asthma. Has followed with Dr. Sepulveda, Fei Lima PA-C, and most recently with [place]. [place] [facility] Patient has chronic respiratory failure requiring 2.5 L/min via NC She most likely has GHAZALA but has not undergone polysomnography testing Pulmonary function test reviewed with no evidence of COPD or restrictive disease. Although patient stated today that she is a lifelong non-smoker, previous pulmonary notes indicate 20 pack year history with 1 ppd as noted at her 08/22/2021 pulmonary visit Continue home Trelegy Ellipta (ICS/LAMA/AC) equivalent while inpatient Continue home medications on discharge Currently at baseline regarding her SaO2 (3) Anxiety: Plan: Supportive care. Patient does not appear to chronically be on any medications for her anxiety, depression or mood disorder Ongoing management per psychiatry (4) GERD (gastroesophageal reflux disease): Plan: Continue Protonix 40mg po BID (5) Restless leg syndrome: Plan: continue Ropinirole (6) Dyslipidemia: Plan: Continue Atorvastatin 80mg po daily (7) Diabetes type 2, uncontrolled: Plan: With hyperglycemia on admission but this was a nonfasting glucose. ADA diet. Continue Sliding scale coverage. Continue current home regimen with metformin Patient states that she has never required insulin in the past (8) Left knee pain: Plan: The patient states that she had an injury prior to this admission. No significant physical findings. X-rays obtained and reveal only age-related arthritic changes. No further evaluation is warranted at this time. Ambulate as tolerated (9) Pulmonary fibrosis: Plan: Secondary to H1 N1 influenza in 2008. Patient has been clinically stable for quite some time. No indication for repeat PFTs or CT scan at this point time. increased mucus is most likely secondary to traction bronchiectasis. Should continue Mucinex and use flutter valve after nebulizer treatments. If she continues to have issues, may consider 7% hypertonic saline nebs (10) History of tracheostomy: Plan: Patient reports prolonged intubation with mechanical ventilation via tracheostomy tube for 8 months This apparently was secondary to H1 N1 Flu related respiratory failure Well healed/closed os No appreciation of hoarse voice. No stridor on examination Plan Medically stable for discharge. Pending housing with case mangement Admission and Anticipated Discharge Date Admission Date: September 14, 2022 Supervising Physician Co-Signing Physician Notes Attending Attestation - Chart reviewed, care plan d/w ADELITA Garcia. I agree w/ the rouse components of his documentation. Appreciate social work & psychiatric team assistance. Daniel Salmon MD Subjective Attending: Dr. Salmon This is a 57 yo female that was admitted 09/14/2022 with severe agitation secondary to intoxication. She was requiring one on one supervision but is no longer in need of this. She is very tearful and emotional. Psychiatric liaison is present for the interview and examination. At this time patient denies any chest pain or tightness. She has no significant concerns about her medical care. She is frustrated that her past medical care has not been taken seriously in her opinion, particularly regarding her respiratory illness history. I spent a significant mount of time discussing previous pulmonary function testing and previous diagnoses. She did seem to have better understanding by the end of the interview and was cooperative with the examination. She reports no fever, chills, sweats, rigors. No abdominal pain. No nausea or vomiting or diarrhea. She states that she is tolerating food but is not very hungry. She is very concerned about her social situation and where she will live as she is currently living in a hotel and does not have financing to continue such. Case management is working with her. She is willing to work with staff to develop a solution. Review of Systems Review of Systems: A total of 10 systems was reviewed and is negative other than as listed in the HPI Physical Exam Physical Exam: GENERAL : No acute distress. Patient is very tearful and emotional. EYES: No icterus, gaze conjugate NOSE: No evidence of epistaxis. Nasal cannula is in place MOUTH: No lesions or candidiasis NECK: Supple. Well healed os from previous tracheostomy. No stridor LUNGS: CTA B/L, no wheezes, rales or rhonchi HEART: Regular, rate controlled ABDOMEN: Soft, NT, ND, BS Present EXTREMITIES: No LE edema, pedal pulses intact NEURO: A&OX3 Results & Data Results & [facility] ([facility]) Vital Signs (Past 12 Hours) Vital Signs Temp Pulse Resp BP Pulse Ox O2 Del Method O2 Flow Rate 09/17/22 15:39 36.6 C 84 16 142/76 H 93 Nasal Cannula 2 09/17/22 08:15 Nasal Cannula 2 09/17/22 08:00 37.0 C 82 16 149/89 H 92 Nasal Cannula 2 Critical Care Results & Data Vital Signs (Past 12 Hours) Vital Signs Temp Pulse Resp BP Pulse Ox O2 Del Method O2 Flow Rate 09/17/22 15:39 36.6 C 84 16 142/76 H 93 Nasal Cannula 2 09/17/22 08:15 Nasal Cannula 2 09/17/22 08:00 37.0 C 82 16 149/89 H 92 Nasal Cannula 2 Lab & Micro Results (Past 24 Hours) No Data to Display No Data to Display No Data to Display I & O Totals 24 Hours 09/16/22 09/17/22 09/18/22 06:59 06:59 06:59 Intake Total 880 / 880 600 / 600 275 / 275 Output Total 1600 / 1600 1701 / 1701 Balance -720 / -720 -1101 / -1101 275 / 275 Cumulative 09/14/22 19:31 thru 09/17/22 17:41 Intake Total 3766.2 Output Total 5126 Balance -1359.8 RT Ventilator Mngmt (Last Documented) Ventilator Ordered Settings Respiratory Rate 16 09/17/22 15:39 Ventilator - PT Measurements Respiratory Rate 16 PG Care Time/CCT Total # of Minutes Spent Total Time Spent with Patient: Total time spent is greater than 50% in coordination of care (as documented) at patient's floor/unit and/or counseling patient:40 minutes spent face to face with face including time with psychiatry and case management Coding Level of Care Code 53950 SUB INP/OBS CARE 2/35MIN Diagnoses Agitation R45.1 Hypoxia R09.02 Anxiety F41.9 GERD (gastroesophageal reflux disease) K21.9 Restless leg syndrome G25.81 Dyslipidemia E78.5 Diabetes type 2, uncontrolled E11.65 Left knee pain M25.562 Pulmonary fibrosis J84.10 History of tracheostomy Z98.890 Time Spent (min) 40
[2022-09-17] MEDS: MONTELUKAST SODIUM 10 MG TABLET PO SCH (21:09)
[2022-09-17] MEDS: rOPINIRole HCL 1 MG TABLET PO SCH (21:10)
[2022-09-18] MEDS: ENOXAPARIN INJ 40 MG/0.4 ML SYR SQ SCH (05:29)
[2022-09-18] MEDS: UMECLIDINIUM/VILANTEROL 62.5/25MCG 7 PUFFS/INHALER INH SCH (08:51)
[2022-09-18] MEDS: guaiFENesin 600 MG TABCR PO SCH ×2 (08:52→21:11)
[2022-09-18] MEDS: ASPIRIN 81 MG ECTAB PO SCH (08:52)
[2022-09-18] MEDS: amLODIPine BESYLATE 5 MG TAB PO SCH (08:52)
[2022-09-18] MEDS: POLYETHYLENE (MIRALAX) 17 GM PACK PO SCH (08:52)
[2022-09-18] MEDS: PANTOprazole 40 MG TAB PO SCH ×2 (08:52→21:13)
[2022-09-18] MEDS: THIAMINE HCL 100 MG in SYRINGE 9 ML IV SCH (08:52)
[2022-09-18] MEDS: FOLIC ACID 1 MG in SYRINGE 9.8 ML IV SCH (08:52)
[2022-09-18] MEDS: GABAPENTIN 300 MG CAP PO SCH ×3 (08:52→21:11)
[2022-09-18] MEDS: FLUTICASONE FUROATE 200MCG 14 PUFFS/INHALER INH SCH (08:53)
[2022-09-18] MEDS: ATORVASTATIN 40 MG TAB PO SCH (08:53)
[2022-09-18] MEDS: DICLOFENAC SOD 1% GEL 100 GM TUBE EXT SCH ×2 (08:54→21:12)
[2022-09-18] MEDS: LANTUS PER UNIT CHARGE SQ SCH ×2 (09:05→21:09)
[2022-09-18] MEDS: KETOROLAC TROMETHAMINE 15 MG/ML VIAL IV PRN (09:05)
[2022-09-18] MEDS: INSULIN ASPART PER UNIT SC SCH ×4 (09:05→21:09)
--- NOTE | 2022-09-18 15:33 | Discharge Summary ---
Date of Service September 19, 2022 Admission HPI Per Admitting Provider Pippa Schmitt is a 57yo female with history of pulmonary fibrosis secondary to H1N1 influenza in 2008 on home O2, DM, HTN, EtOH abuse, Anxiety and mood disorder. Patient was seen in the ER most recently on 09/01/22 on a 302 warrant for suicidal threats and EtOH intoxication following eviction from her home. She was stabilized and cleared by Psychiatry and remained in the ER for several days before being successfully transported to the care of her friend in [place] on 09/03/22 . Patient returns to the ER tonight via EMS after being found altered and agitated in her hotel. She was reportedly hypoxic with saturations in the 70's by EMS and her portable O2 was not functioning properly. She was provided with supplemental O2 by EMS with improvement in saturations to the 90's as well as improvement in her mental state. Upon arrival to the ER she is HD stable. She is presently on 3L Oxymask with saturations of 99-100%. Patient combative in the ER, agitated and spitting at staff. She was sedated with Ativan 1mg IV x 3 doses and Olanzapine 10mg IM x 1. Presently resting comfortably asleep. ER Course: Ativan 1mg IV x 3 doses Olanzapine 10mg IM x 1 dose Ordered: 7u IV regular insulin 10u Lantus 1L NSS Admission Exam Per Admitting Provider Physical Exam: General: patient resting comfortably after receiving Ativan and Olanzapine, does not answer questions or follow commands at this time Skin: warm, dry, intact, no rashes or lesions HEENT: NC/AT, PERRL, anicteric sclera, conjunctiva without injection, external ear normal to inspection and nontender, nares patent, moist mucus membranes, dentition intact, no oropharyngeal lesions, neck supple, trachea midline, no LAD , no thyromegaly, no JVD Heart: +S1/S2, regular, tachycardic, no m/r/g Lungs: equal air entry bilaterally, no rales/rhonchi/wheezes anteriorly Abd: +BS, soft, ND, no masses/organomegaly/ascites Ext: warm, 2+ pulses in UE/LE bilaterally, no clubbing/cyanosis or edema Neuro: patient sedated after receiving Ativan and Olanzapine, PERRL, withdraws from painful stimuli. Neurologically intact grossly prior to sedation per discussion with nursing Principal Diagnosis 1. Altered mental status secondary to intoxication 2. Agitation 3. Anxiety Discharge Exam GENERAL : No acute distress. Patient is very tearful and emotional. EYES: No icterus, gaze conjugate NOSE: No evidence of epistaxis. Nasal cannula is in place MOUTH: No lesions or candidiasis NECK: Supple. Well healed os from previous tracheostomy. No stridor LUNGS: CTA B/L, no wheezes, rales or rhonchi HEART: Regular, rate controlled ABDOMEN: Soft, NT, ND, BS Present EXTREMITIES: No LE edema, pedal pulses intact NEURO: A&OX3 Discharge Data Allergies Allergy/AdvReac Type Severity Reaction Status Date / Time house dust Allergy Intermediate Difficulty Verified 09/02/22 16:11 Breathing mold Allergy Intermediate ASTHMA Verified 09/02/22 16:11 ATTACK Consultations 09/15/22 15:41 Consult Psychiatry Routine Ordered Studies 09/14/22 21:10 CT head/brain wo con Urgent CT OF THE HEAD WITHOUT CONTRAST CLINICAL HISTORY: Altered mental status. COMPARISON STUDY: MRI of the brain and head CT February 20, 2022. CT DOSE: 1228.24 mGy.cm TECHNIQUE: Helical axial images of the head were obtained without IV contrast. Automated exposure control was utilized for the study. A dose lowering technique was utilized adhering to the principles of ALARA. FINDINGS: No acute intracranial hemorrhage, midline shift or mass effect is present. White matter hypodensities are similar to prior exam and favor small vessel disease. The ventricular system is unremarkable. The basal cisterns are patent. No extra-axial collections are present. There are no findings to suggest acute dural sinus thrombosis or acute territorial infarct. No significant calvarial abnormalities are present. Visualized portions of the sinuses and mastoid air cells are clear. IMPRESSION: No acute intracranial findings. No change in appearance of the brain. ACT 112: Negative or not required by law. Electronically signed by: Diogenes Marcos M.D. 09/15/2022 8:13 AM Hospital Course (1) Agitation: Attending: Dr. Salmon Patient admitted 09/14/2022 with intoxication. She reports that she was all alone and depressed and does not remember coming to the emergency department or the early phase of her admission. She denies any suicidal ideation although she does admit to thoughts of suicide. This was stated in the presence of the psychiatric liaison RN. She has no acute complaints regarding her acute medical status and is currently medically stable for discharge pending housing which is being coordinated with case management. May have been related to hypoxia and/or intoxication. Now stable. Psychiatry consulted. Appreciate Dr. Parham's input No longer requiring 1 on 1 observation. Outpatient follow up with psychiatry being coordinated by psychiatry Will defer SSRIs or other agents to psychiatry (2) Hypoxia: Patient reports chronic COPD and asthma. Has followed with Dr. Sepulveda, Fei Lima PA-C, and most recently with Dr. Power with [facility] Pulmonary Patient has chronic respiratory failure requiring 2.5 L/min via NC Will perform 2 Step prior to discharge. Currently 92% on room air at rest She most likely has GHAZALA but has not undergone polysomnography testing Pulmonary function test reviewed with no evidence of COPD or restrictive disease. Although patient stated today that she is a lifelong non-smoker, previous pulmonary notes indicate 20 pack year history with 1 ppd as noted at her 08/22/2021 pulmonary visit Continue home Trelegy Ellipta (ICS/LAMA/AC) equivalent while inpatient Continue home medications on discharge (3) Anxiety: Supportive care. Patient does not appear to chronically be on any medications for her anxiety, depression or mood disorder Ongoing management per psychiatry (4) GERD (gastroesophageal reflux disease): Continue Protonix 40mg po BID (5) Restless leg syndrome: continue Ropinirole (6) Dyslipidemia: Continue Atorvastatin 80mg po daily (7) Diabetes type 2, uncontrolled: With hyperglycemia on admission but this was a nonfasting glucose. ADA diet. Continue Sliding scale coverage. Continue current home regimen with metformin Patient states that she has never required insulin in the past (8) Left knee pain: The patient states that she had an injury prior to this admission. No significant physical findings. X-rays obtained and reveal only age-related arthritic changes. No further evaluation is warranted at this time. Ambulate as tolerated (9) Pulmonary fibrosis: Secondary to H1 N1 influenza in 2008. Per most recent pulmonary outpatient note, patient has been stable for some time.. No indication for repeat PFTs or CT scan at this point time. Increased mucus is most likely secondary to traction bronchiectasis. Should continue Mucinex and use flutter valve after nebulizer treatments. If she continues to have issues, may consider 7% hypertonic saline nebs (10) History of tracheostomy: Patient reports prolonged intubation with mechanical ventilation via tracheostomy tube for 8 months This apparently was secondary to H1 N1 Flu related respiratory failure Well healed/closed os No appreciation of hoarse voice. No stridor on examination No further action required Plan Medically stable for discharge. Pending housing with case mangement Total Time Total Time Spent Total Time Spent (In Minutes): 50 minutes Discharge Plan Discharge Items Patient Disposition: Home - Self-Care Reason For Visit: CONFUSION, AGITATION Discharge Diagnosis: Confusion, agitation, alcohol intoxication - resolved Activity: Resume your previous activity Lifting: Gradually increase as tolerated Bathing: No limitations Exercise/Sports: Gradually increase as tolerated Non-emergency contact: Primary Care Provider Call non-emergency contact if: you have any medication questions Follow-up/Referrals: [facility] [Outside] - 09/29/22 12:50 pm (Intake appointment 09/29/2022 @ 12:50 PM with ADELITA Arnett Please bring insurance card to your first appointment. If you cannot make your appointment, you must call 24 hours in advance to cancel/reschedule. If you no call/no show, they will be unable to provide services in the future. ) Tyrell Mancini MD [Primary Care Provider] - 09/29/22 2:00 pm Lani Coker DPM [Physician] - (call as needed for any ongoing infection of the big toe on your left foot ) Diet: Carb Consistent or DM2 and Low Sodium (2gm) Addtl Attending Provider Instructions: You were admitted with confusion and agitation. Psychiatry is recommending outpatient follow-up for both counseling and therapy as well as medication management. It is recommended that you keep all outpatient appointments with internal medicine with Dr. Mancini as well as any psychiatric appointments as established. Please ask for help if you feel overwhelmed. You can always come to the emergency department or call the [place] Crisis Number if you begin to feel hopeless, have thoughts of hurting yourself, or have thoughts of hurting someone else. The number is and can be called 24 hours a day. You can also always call 911 if you need immediate assistance. For your toe infection please take cephalexin 500mg three times daily for 7 days. Continue to soak the toe in warm water with soap suds for about 30 minutes - 3 times a day. Follow-up with Dr Mancini or podiatry for this problem. Prescription was sent to pharmacy for you. Take thiamine supplement - 200mg twice daily for 30 days. Prescription sent to pharmacy for you. You should continue to take all of your medications as prescribed and keep all follow up appointments. New prescriptions were sent in for a glucometer, test strips, lancet device, and lancets to your pharmacy. Please check your blood sugars at least twice daily. You should continue to use your oxygen as needed to keep oxygen levels above 90% Please call Dr. Mancini's office with any questions regarding your medical care. A copy of these instructions and your discharge summary will be sent to his office. Pending Studies at Discharge: No Stand-Alone Forms: My [facility], Smoking Cessation Medications and DC Order Prescriptions: New cephalexin 500 mg Capsule 500 mg PO TID 7 Days Qty: 21 0RF thiamine HCl (vitamin B1) 100 mg tablet 200 mg PO BID 30 Days Qty: 120 0RF (DME) lancing device with lancets [[employer] Delica Lanc Device] Kit See Rx Instructions .Route Qty: 1 0RF Rx Instructions: As directed - check blood sugars twice daily. Continued (DME) Oxygen Home Liters Per Minute See Rx Instructions .MEDSUPPLY Qty: 1 0RF Rx Instructions: Please get patient set up for oxygen, concentrator, poc, ok to do necessary testing, necessary supplies, lifetime need. ropinirole 1 mg tablet 1 mg PO HS Qty: 30 11RF gabapentin 300 mg capsule 300 mg PO TID Qty: 270 3RF atorvastatin 80 mg tablet 80 mg PO QAM Qty: 90 3RF Rx Instructions: PT UNSURE IF TAKING, LAST FILLED 06/22/22 FOR 90 DAYS/90 PILLS. for cholesterol to prevent heart attack and stroke ondansetron 4 mg tablet,disintegrating 4 mg PO Q8H PRN (Reason: nausea and vomiting) Qty: 30 5RF naproxen 500 mg tablet 500 mg PO BID PRN (Reason: pain) Qty: 180 3RF Motegrity 2 mg tablet 2 mg PO DAILY Qty: 90 3RF magnesium oxide 400 mg (241.3 mg magnesium) tablet 400 mg PO BID Qty: 60 5RF amlodipine 5 mg tablet 10 mg PO DAILY Qty: 60 5RF cyclobenzaprine 10 mg tablet 10 mg PO TID PRN (Reason: muscle spasm) Qty: 90 1RF pantoprazole 40 mg tablet,delayed release (DR/EC) 40 mg PO BID Qty: 180 3RF diclofenac sodium 1 % gel 2 g TOP QID PRN (Reason: Pain) Qty: 100 3RF Rx Instructions: apply to single elbow, wrist or hand; for hand includes palm/fingers/back of hand metformin 500 mg tablet extended release 24 hr 1,000 mg PO BID Qty: 180 3RF aspirin 81 mg tablet,delayed release (DR/EC) 81 mg PO DAILY Qty: 90 1RF montelukast [Singulair] 10 mg tablet 10 mg PO HS Qty: 90 1RF Rybelsus 3 mg tablet 3 mg PO DAILY Qty: 30 5RF hydrocodone-acetaminophen 5-325 mg tablet 2 tab PO Q6H PRN (Reason: pain) Qty: 120 0RF Rx Instructions: Must last 15 days guaifenesin [Mucinex] 600 mg tablet extended release 12hr 600 mg PO Q12H Qty: 60 3RF Centrum Complete 18-400 mg-mcg tablet 1 tab PO QAM (DME) nebulizers Misc See Rx Instructions miscellaneous .MEDSUPPLY Qty: 1 0RF Rx Instructions: Use 4 x a day or as directed. Lifetime need. ipratropium-albuterol 0.5 mg-3 mg(2.5 mg base)/3 mL solution for nebulization 3 ml inhalation Q4H PRN (Reason: wheezing) Qty: 180 5RF sodium chloride 7 % solution for nebulization 4 ml inhalation BID Qty: 240 5RF albuterol sulfate 90 mcg/actuation HFA aerosol inhaler 2 puff INHALATION 6XD PRN (Reason: Wheezing) Qty: 8.5 3RF fluticasone propionate [Flonase Allergy Relief] 50 mcg/actuation spray,suspension 1 spray INTNAS QAM PRN (Reason: Nasal Congestion) Qty: 16 11RF Rx Instructions: administer into each nostril melatonin 10 mg Tablet 10 mg PO HS PRN (Reason: Sleep) polyethylene glycol 3350 17 gram/dose powder 17 g PO QAM Trelegy Ellipta 200-62.5-25 mcg blister with device 1 inh inhalation QAM diphenhydramine HCl [Benadryl] 25 mg Capsule 25 mg PO HS PRN (Reason: Allergy Symptoms) calcium polycarbophil [Fiber (calcium polycarbophil)] 625 mg Tablet 3,129 mg PO QAM docusate sodium [Colace] 100 mg Capsule 300 mg PO BID cinnamon bark [Cinnamon] 500 mg Capsule 500 mg PO QAM Probiotic 15 billion cell Capsule 30 cap PO QAM Vitamin C And Zinc Tablet 1 tab PO QAM Changed (DME) blood-glucose meter [OneTouch Verio Meter] Misc See Rx Instructions .ROUTE .MEDSUPPLY Qty: 1 0RF Rx Instructions: test 2 times daily (DME) OneTouch Verio test strips Strip See Rx Instructions .ROUTE .MEDSUPPLY Qty: 1 0RF Rx Instructions: test at least twice daily (DME) lancets [OneTouch Delica Plus Lancet] 30 gauge misc See Rx Instructions .ROUTE .MEDSUPPLY Qty: 100 0RF Rx Instructions: As directed - check sugars twice daily Discharge Orders: Discharge Order (Routine); Ordered 09/19/22 Ordered By: Daniel Daniels/Other Patient Handouts: High Blood Sugar (Hyperglycemia), Hypoglycemia (Low Blood Sugar), Managing Type 2 Diabetes, Diabetes: Meal Planning, Special Foot Care for Diabetes Admission Data Admit Date/Time: 09/14/22 22:25 Attending Provider: Daniel Salmon Admit Provider: Gilma Crump Primary Care Provider: Tyrell Mancini Other Providers: Bianca Soto ; Kandis Parham Other Interventions: Discharge Summary Assessment (RN) Last Done: 09/19/22 17:31 Coding Level of Care Code HOSP INP/OBS DISCH 30 MIN/LESS Diagnoses Agitation R45.1 Hypoxia R09.02 Anxiety F41.9 GERD (gastroesophageal reflux disease) K21.9 Restless leg syndrome G25.81 Dyslipidemia E78.5 Diabetes type 2, uncontrolled E11.65 Left knee pain M25.562 Pulmonary fibrosis J84.10 History of tracheostomy Z98.890 Time Spent (min) 50
--- NOTE | 2022-09-18 20:13 | Hospitalist Progress Note ---
Date of Service September 18, 2022 Assessment & Plan (1) Agitation: Plan: Attending: Dr. Salmon Patient admitted 09/14/2022 with intoxication. She reports that she was all alone and depressed and does not remember coming to the emergency department or the early phase of her admission. She denies any suicidal ideation although she does admit to thoughts of suicide. This was stated in the presence of the psychiatric liaison RN. She has no acute complaints regarding her acute medical status and is currently medically stable for discharge pending housing which is being coordinated with case management. May have been related to hypoxia And or intoxication. Now stable. Psychiatry consulted. Appreciate Dr. Parham's input No longer requiring 1 on 1 observation. Outpatient follow up with psychiatry being coordinated by psychiatry Patient continues to be emotionally labile Will defer SSRIs or other agents to psychiatry (2) Hypoxia: Plan: Patient reports chronic COPD and asthma. Has followed with Dr. Sepulveda, Fei Lima PA-C, and most recently with Dr. Power with [facility] Pulmonary Patient has chronic respiratory failure requiring 2.5 L/min via NC She most likely has GHAZALA but has not undergone polysomnography testing Pulmonary function test reviewed with no evidence of COPD or restrictive disease. Although patient stated today that she is a lifelong non-smoker, previous pulmonary notes indicate 20 pack year history with 1 ppd as noted at her 08/22/2021 pulmonary visit Continue home Trelegy Ellipta (ICS/LAMA/AC) equivalent while inpatient Continue home medications on discharge Currently at baseline regarding her SaO2 (3) Anxiety: Plan: Supportive care. Patient does not appear to chronically be on any medications for her anxiety, depression or mood disorder Ongoing management per psychiatry (4) GERD (gastroesophageal reflux disease): Plan: Continue Protonix 40mg po BID (5) Restless leg syndrome: Plan: continue Ropinirole (6) Dyslipidemia: Plan: Continue Atorvastatin 80mg po daily (7) Diabetes type 2, uncontrolled: Plan: With hyperglycemia on admission but this was a nonfasting glucose. ADA diet. Continue Sliding scale coverage. Continue current home regimen with metformin Patient states that she has never required insulin in the past (8) Left knee pain: Plan: The patient states that she had an injury prior to this admission. No significant physical findings. X-rays obtained and reveal only age-related arthritic changes. No further evaluation is warranted at this time. Ambulate as tolerated (9) Pulmonary fibrosis: Plan: Secondary to H1 N1 influenza in 2008. Patient has been clinically stable for quite some time. No indication for repeat PFTs or CT scan at this point time. increased mucus is most likely secondary to traction bronchiectasis. Should continue Mucinex and use flutter valve after nebulizer treatments. If she continues to have issues, may consider 7% hypertonic saline nebs (10) History of tracheostomy: Plan: Patient reports prolonged intubation with mechanical ventilation via tracheostomy tube for 8 months This apparently was secondary to H1 N1 Flu related respiratory failure Well healed/closed os No appreciation of hoarse voice. No stridor on examination Plan Medically stable for discharge. Pending housing with case mangement Admission and Anticipated Discharge Date Admission Date: September 14, 2022 Supervising Physician Co-Signing Physician Notes Attending Attestation - Chart reviewed, care plan d/w PA Johan Garcia. I agree w/ the rouse components of his documentation. Appreciate social work assistance regarding disposition and post-d/c housing. Daniel Salmon MD Subjective Attending: Dr. Salmon This is a 57 yo female that was admitted 09/14/2022 with severe agitation secondary to intoxication. She was requiring one on one supervision but is no longer in need of this. She is very tearful and emotional. Psychiatric liaison is present for the interview and examination. At this time patient denies any chest pain or tightness. She has no significant concerns about her medical care. She is frustrated that her past medical care has not been taken seriously in her opinion, particularly regarding her respiratory illness history. I spent a significant mount of time discussing previous pulmonary function testing and previous diagnoses. She did seem to have better understanding by the end of the interview and was cooperative with the examination. She reports no fever, chills, sweats, rigors. No abdominal pain. No nausea or vomiting or diarrhea. Patient was scheduled for discharge today and they could not find a ride. Discharge was canceled. Anticipate discharge home tomorrow. Review of Systems Review of Systems: A total of 10 systems was reviewed and is negative other than as listed in the HPI Physical Exam Physical Exam: GENERAL : No acute distress. Patient is very tearful and emotional. EYES: No icterus, gaze conjugate NOSE: No evidence of epistaxis. Nasal cannula is in place MOUTH: No lesions or candidiasis NECK: Supple. Well healed os from previous tracheostomy. No stridor LUNGS: CTA B/L, no wheezes, rales or rhonchi HEART: Regular, rate controlled ABDOMEN: Soft, NT, ND, BS Present EXTREMITIES: No LE edema, pedal pulses intact NEURO: A&OX3 Results & Data Results & Data ([facility]) Vital Signs (Past 12 Hours) Vital Signs Temp Pulse Resp BP Pulse Ox O2 Del Method O2 Flow Rate 09/18/22 14:51 36.6 C 113 H 16 117/79 90 Nasal Cannula 1.5 09/18/22 10:21 Nasal Cannula 2 Critical Care Results & Data Vital Signs (Past 12 Hours) Vital Signs Temp Pulse Resp BP Pulse Ox O2 Del Method O2 Flow Rate 09/18/22 14:51 36.6 C 113 H 16 117/79 90 Nasal Cannula 1.5 09/18/22 10:21 Nasal Cannula 2 Lab & Micro Results (Past 24 Hours) No Data to Display No Data to Display No Data to Display I & O Totals 24 Hours 09/17/22 09/18/22 09/19/22 06:59 06:59 06:59 Intake Total 600 / 600 275 / 275 Output Total 1701 / 1701 Balance -1101 / -1101 275 / 275 Cumulative 09/14/22 19:31 thru 09/18/22 14:53 Intake Total 3766.2 Output Total 5126 Balance -1359.8 RT Ventilator Mngmt (Last Documented) Ventilator Ordered Settings Respiratory Rate 16 09/18/22 14:51 Ventilator - PT Measurements Respiratory Rate 16 PG Care Time/CCT Total # of Minutes Spent Total Time Spent with Patient: Total time spent is greater than 50% in coordination of care (as documented) at patient's floor/unit and/or counseling patient: Coding Level of Care Code 18805 SUB INP/OBS CARE 1/25MIN Diagnoses Agitation R45.1 Hypoxia R09.02 Anxiety F41.9 GERD (gastroesophageal reflux disease) K21.9 Restless leg syndrome G25.81 Dyslipidemia E78.5 Diabetes type 2, uncontrolled E11.65 Left knee pain M25.562 Pulmonary fibrosis J84.10 History of tracheostomy Z98.890
[2022-09-18] MEDS: rOPINIRole HCL 1 MG TABLET PO SCH (21:11)
[2022-09-18] MEDS: MONTELUKAST SODIUM 10 MG TABLET PO SCH (21:11)
[2022-09-19] MEDS ORDERED: LORazepam 0.5 MG TAB PO STA (00:30)
[2022-09-19] MEDS: KETOROLAC TROMETHAMINE 15 MG/ML VIAL IV PRN (00:38)
[2022-09-19] MEDS ORDERED: Nursing to Pharmacy Communication SCH (06:15)
[2022-09-19] MEDS: DICLOFENAC SOD 1% GEL 100 GM TUBE EXT SCH (08:18)
[2022-09-19] MEDS: ENOXAPARIN INJ 40 MG/0.4 ML SYR SQ SCH (09:33)
[2022-09-19] MEDS: POLYETHYLENE (MIRALAX) 17 GM PACK PO SCH (09:33)
[2022-09-19] MEDS: UMECLIDINIUM/VILANTEROL 62.5/25MCG 7 PUFFS/INHALER INH SCH (09:34)
[2022-09-19] MEDS: FLUTICASONE FUROATE 200MCG 14 PUFFS/INHALER INH SCH (09:34)
[2022-09-19] MEDS: guaiFENesin 600 MG TABCR PO SCH (09:34)
[2022-09-19] MEDS: amLODIPine BESYLATE 5 MG TAB PO SCH (09:34)
[2022-09-19] MEDS: ATORVASTATIN 40 MG TAB PO SCH (09:34)
[2022-09-19] MEDS: FOLIC ACID 1 MG in SYRINGE 9.8 ML IV SCH (09:35)
[2022-09-19] MEDS: THIAMINE HCL 100 MG in SYRINGE 9 ML IV SCH (09:35)
[2022-09-19] MEDS: ASPIRIN 81 MG ECTAB PO SCH (09:35)
[2022-09-19] MEDS: GABAPENTIN 300 MG CAP PO SCH ×2 (09:35→13:41)
[2022-09-19] MEDS: PANTOprazole 40 MG TAB PO SCH (09:35)
[2022-09-19] MEDS: INSULIN ASPART PER UNIT SC SCH ×3 (09:55→18:05)
[2022-09-19] MEDS: LANTUS PER UNIT CHARGE SQ SCH (09:56)
--- NOTE | 2022-09-19 15:10 | Hospitalist Progress Note ---
Date of Service September 19, 2022 Assessment & Plan (1) Agitation: Plan: Attending: Dr. Salmon Patient admitted 09/14/2022 with intoxication. She reports that she was all alone and depressed and does not remember coming to the emergency department or the early phase of her admission. She denies any suicidal ideation although she does admit to thoughts of suicide. This was stated in the presence of the psychiatric liaison RN. She has no acute complaints regarding her acute medical status and is currently medically stable for discharge pending housing which is being coordinated with case management. May have been related to hypoxia and/or intoxication. Now stable. Psychiatry consulted. Appreciate Dr. Parham's input No longer requiring 1 on 1 observation. Outpatient follow up with psychiatry being coordinated by psychiatry Will defer SSRIs or other agents to psychiatry (2) Hypoxia: Plan: Patient reports chronic COPD and asthma. Has followed with Dr. Sepulveda, Fei Lima PA-C, and most recently with Dr. Power with [facility] [place] [facility] Patient has chronic respiratory failure requiring 2.5 L/min via NC Will perform 2 Step prior to discharge. Currently 92% on room air at rest She most likely has GHAZALA but has not undergone polysomnography testing Pulmonary function test reviewed with no evidence of COPD or restrictive disease. Although patient stated today that she is a lifelong non-smoker, previous pulmonary notes indicate 20 pack year history with 1 ppd as noted at her 08/22/2021 pulmonary visit Continue home Trelegy Ellipta (ICS/LAMA/AC) equivalent while inpatient Continue home medications on discharge (3) Anxiety: Plan: Supportive care. Patient does not appear to chronically be on any medications for her anxiety, depression or mood disorder Ongoing management per psychiatry (4) GERD (gastroesophageal reflux disease): Plan: Continue Protonix 40mg po BID (5) Restless leg syndrome: Plan: continue Ropinirole (6) Dyslipidemia: Plan: Continue Atorvastatin 80mg po daily (7) Diabetes type 2, uncontrolled: Plan: With hyperglycemia on admission but this was a nonfasting glucose. ADA diet. Continue Sliding scale coverage. Continue current home regimen with metformin Patient states that she has never required insulin in the past (8) Left knee pain: Plan: The patient states that she had an injury prior to this admission. No significant physical findings. X-rays obtained and reveal only age-related arthritic changes. No further evaluation is warranted at this time. Ambulate as tolerated (9) Pulmonary fibrosis: Plan: Secondary to H1 N1 influenza in 2008. Per most recent pulmonary outpatient note, patient has been stable for some time.. No indication for repeat PFTs or CT scan at this point time. Increased mucus is most likely secondary to traction bronchiectasis. Should continue Mucinex and use flutter valve after nebulizer treatments. If she continues to have issues, may consider 7% hypertonic saline nebs (10) History of tracheostomy: Plan: Patient reports prolonged intubation with mechanical ventilation via tracheostomy tube for 8 months This apparently was secondary to H1 N1 Flu related respiratory failure Well healed/closed os No appreciation of hoarse voice. No stridor on examination No further action required Plan Medically stable for discharge. [facility] and Anticipated Discharge Date Admission Date: September 14, 2022 Review of Systems Review of Systems: A total of 10 systems was reviewed and is negative other than as listed in the HPI Physical Exam Physical Exam: GENERAL : No acute distress. Patient is very tearful and emotional. EYES: No icterus, gaze conjugate NOSE: No evidence of epistaxis. Nasal cannula is in place MOUTH: No lesions or candidiasis NECK: Supple. Well healed os from previous tracheostomy. No stridor LUNGS: CTA B/L, no wheezes, rales or rhonchi HEART: Regular, rate controlled ABDOMEN: Soft, NT, ND, BS Present EXTREMITIES: No LE edema, pedal pulses intact NEURO: A&OX3 Results & Data Results & Data ([facility] [place]) Vital Signs (Past 12 Hours) Vital Signs Temp Pulse Resp BP Pulse Ox O2 Del Method O2 Flow Rate 09/19/22 09:00 Nasal Cannula 2 09/19/22 07:48 36.5 C 73 16 127/79 98 Room Air Critical Care Results & Data Vital Signs (Past 12 Hours) Vital Signs Temp Pulse Resp BP Pulse Ox O2 Del Method O2 Flow Rate 09/19/22 09:00 Nasal Cannula 2 09/19/22 07:48 36.5 C 73 16 127/79 98 Room Air Lab & Micro Results (Past 24 Hours) No Data to Display No Data to Display No Data to Display I & O Totals 24 Hours 09/18/22 09/19/22 09/20/22 06:59 06:59 06:59 Intake Total 275 / 275 700 / 700 275 / 275 Balance 275 / 275 700 / 700 275 / 275 Cumulative 09/14/22 19:31 thru 09/19/22 13:30 Intake Total 4741.2 Output Total 5126 Balance -384.8 RT Ventilator Mngmt (Last Documented) Ventilator Ordered Settings Respiratory Rate 16 09/19/22 07:48 Ventilator - PT Measurements Respiratory Rate 16 PG Care Time/CCT Total # of Minutes Spent Total Time Spent with Patient: Total time spent is greater than 50% in coordination of care (as documented) at patient's floor/unit and/or counseling patient: Coding Diagnoses Agitation R45.1 Hypoxia R09.02 Anxiety F41.9 GERD (gastroesophageal reflux disease) K21.9 Restless leg syndrome G25.81 Dyslipidemia E78.5 Diabetes type 2, uncontrolled E11.65 Left knee pain M25.562 Pulmonary fibrosis J84.10 History of tracheostomy Z98.890
[2022-09-19] MEDS ORDERED: cephALEXin 500 MG CAP PO SCH (21:00)
== END 2022-09-19 19:03 | disposition home or self-care (01) ==
LOC: ED 19:37 → SUATTDRO 22:25 → INTOOBSV 22:25 → 3N 22:25

== ENCOUNTER 2022-10-26 18:54 | Observation (INO) ==
--- NOTE | 2022-10-26 19:08 | Emergency Department Note ---
Impression & Plan Acute dyspnea, Acute hypokalemia, Hyperglycemia, Tachycardia ED Provider Note HISTORY OF PRESENT ILLNESS: Patient is a 57-year-old female presenting with shortness of breath. Patient reports she has been short of breath for the last week. She was evaluated in the emergency department 2 days ago for similar symptoms and given steroids. She states that while walking up the hill today she became very short of breath and her heart rate jumped up to the 160s. She denies any DVT or PE history. She is on 2 L nasal cannula at baseline. Denies any chest pain. Does report a cough productive of green sputum. Denies any fevers. ROS: as above PHYSICAL EXAM: Constitutional: Patient appears in no acute distress. HENT: Head: Normocephalic and atraumatic. Eyes: EOMI, PERRL Mouth/Throat: Mucous membranes moist. Neck: Trachea midline. Neck supple. Cardiovascular: Tachycardic with regular rhythm. No murmurs, rubs or gallops. Intact distal pulses. Pulmonary/Chest: No respiratory distress. Breath sounds clear and equal bilaterally. Expiratory wheezes bilaterally Abdominal: BS +. Abdomen soft, no tenderness, rebound or guarding. Back: No midline spinal tenderness, no paraspinal tenderness, no CVA tenderness. Musculoskeletal: No edema, tenderness or deformity noted. Skin: Warm and dry. No rash, erythema, pallor or cyanosis Psychiatric: Appropriate mood and affect for situation. Neurological: Alert and keenly responsive. CN II-XII grossly intact, moving all extremities equally and fully. MDM: - Vitals signs showed tachycardia - History obtained via patient. Patient presents with shortness of breath and tachycardia. Patient reports that she has been short of breath for the last few days. Denies any significant chest pain. Reports a cough productive of green sputum. Denies any fevers. Reports she was walking earlier today and her heart rate went up to the 160s. Denies any history of DVT or PE. - Chronic conditions affecting care: COPD (on 2L NC); CHF; DM-2 - Differential diagnoses include, but are not limited to: Congestive heart failure; acute coronary syndrome; COPD/asthma exacerbation; pulmonary edema; pulmonary embolism; pneumonia; pneumothorax; viral syndrome - Order placed for continuous cardiac monitoring. At this time, monitor showed rate of 120 bpm with normal sinus rhythm, per my interpretation. - External medical records reviewed. EMS run sheet reviewed. Patient remained vitally stable in route. She was given 125 mg of IV Solu-Medrol and a DuoNeb prehospital. - EKG reviewed by myself showed sinus rhythm. Tachycardic with a rate of 126 bpm. QTc 440. No evidence of acute ischemic changes. - Laboratory workup interpreted by myself showed leukocytosis (WBC 15.68); hypokalemia (K 3.0); hyperglycemia (glucose 247); normal troponin - COVID/flu/RSV negative - CXR negative for pneumonia, per my interpretation. - Given patient's persistent tachycardia, CT PE obtained and was negative. Radiologist read as pulmonary fibrosis with bronchiectasis. - Patient given duoneb treatment and 125 mg IV solumedrol in ER. Given 1500 cc NS. She remained tachycardia. - Patient has received a significant amount of IV steroids in the last 3 days for her symptoms. She will likely need close monitoring of her glucose levels. - Patient is still significantly short of breath on reassessment in the ER. She remains tachycardic. - Discussion was had with social science instructor about patient's case and need for admission. - Hospitalist, Dr. Crump, consulted for admission. - Patient admitted to [facility]ist service for further evaluation and management. ASSESSMENT AND PLAN: Diagnosis: dyspnea; tachycardia; hyperglycemia; hypokalemia; leukocytosis Plan: admit Past Med/Surg History Medical History Acute pancreatitis Admitted April 2021- had MRCP at that time- recommended EUS six weeks from April admission Aggressive behavior Anxiety Asthma with exacerbation last used inhaler yesterday Chronic constipation COPD (chronic obstructive pulmonary disease) Depression Diabetes type 2, uncontrolled Hgb A1C 04/25/21 was 7.0 Dysphagia DIFFICULTY SWALLOWING MEDS Foot pain rt tendon "problems" GERD (gastroesophageal reflux disease) Hiatal hernia History of ARDS 2009 (ADMITTED TO [facility] [place]) (SECONDARY TO H1N1 INFECTION)- CONTINUES ON SUPPLEMENTAL OXYGEN History of congestive heart failure 2019 History of ETOH abuse last drink 05-20-20 History of Guillain-[place] syndrome DX'D 2009 History of pulmonary embolism 2008 per PCP records - no AC HTN (hypertension) Interstitial lung disease Follows with pulm Lumbar degenerative disc disease Lumbar radiculopathy Mood disorder On home oxygen therapy 2-3L O2 WITH EXERTION AND AT HS Post traumatic stress disorder Pulmonary HTN Restless leg syndrome Surgical History History of anesthesia reaction "I HAVE A HARD TIME BREATHING AFTER ANESTHESIA" History of colonoscopy 2019 History of esophagogastroduodenoscopy (EGD) History of laparoscopic cholecystectomy History of radiofrequency ablation procedure for cardiac arrhythmia 2006-NO F/U CARDIOLOGY History of sinus surgery History of tracheostomy resolved History of tracheostomy Hx H1N1 in 2008 with prolonged intubation and mechanical ventilation for 8 months per patient 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 Family History Grandmother (Paternal) Family history of diabetes mellitus Mother , age 81 of uncertain causes No problems noted. Father , early 50s of lymphoma Lymphoma Other No family history of adverse response to anesthesia No significant family history Social History Smoking Status: Never smoker Second Hand Exposure: No; Hx Alcohol Use: Yes Alcohol type: hard liquor Hx Substance Use: Yes Preferred Language: Egyptian Communication Ability: Effective Visual Impairment: No Limitations Wool Grader Required: No Beliefs That Will Affect Care: Alevism Alevism Beliefs: only wants to have a blood transfusion as a last resort marital status: Single Current Living Situation: Alone Current Living Situation Comment: pt is living at [address] currently homeless she states current occupational status: disabled 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 How many Children do You have: 0 Feels Safe at Home: No Is there a partner from a previous relationship who is making you feel unsafe now?: No Assistive Devices: Glasses and Oxygen - Continuous Allergies Allergies Allergy/AdvReac Type Severity Reaction Status Date / Time house dust Allergy Intermediate Difficulty Verified 10/26/22 20:01 Breathing mold Allergy Intermediate ASTHMA Verified 10/26/22 20:01 ATTACK ENVIRONMENTAL Allergy Intermediate ASTHMA Uncoded 10/26/22 20:01 ATTACK--SEE COMMENT Home Meds Home Medications Medication Instructions Recorded Confirmed melatonin 10 mg tablet 10 mg PO HS PRN Sleep 07/05/18 10/26/22 multivitamin-ferrous 1 tab PO QAM 09/21/19 10/26/22 fumarate-folic acid 18 mg-400 mcg tablet (Centrum Complete) polyethylene glycol 3350 17 17 g PO QAM 06/11/20 10/26/22 gram/dose oral powder diphenhydramine HCl 25 mg capsule 25 mg PO HS PRN Allergy Symptoms 06/21/21 10/26/22 (Benadryl) fluticasone fur. 200 mcg-umeclid 1 inh inhalation QAM interstitial 06/21/21 10/26/22 62.5 mcg-vilant 25 mcg lung disease inhalat.powder (Trelegy Ellipta) Lactobacillus acidophilus and 30 cap PO QAM 08/04/21 10/26/22 rhamnosus 15 billion cell capsule (Probiotic) Vitamin C And Zinc Tablet 1 tab PO QAM 08/04/21 10/26/22 calcium polycarbophil 625 mg 3,129 mg PO QAM 08/04/21 10/26/22 tablet (Fiber (calcium polycarbophil)) cinnamon bark 500 mg capsule 500 mg PO QAM 08/04/21 10/26/22 (Cinnamon) docusate sodium 100 mg capsule 300 mg PO BID 08/04/21 10/26/22 (Colace) guaifenesin 600 mg tablet, 600 mg PO Q12H PRN Congestion 10/04/22 10/26/22 extended release 12 hr (Mucinex) Previous Rx's Medication Instructions Recorded sodium chloride 7 % for 4 ml inhalation BID #240 mL 08/28/20 nebulization Oxygen Home #1 ea 02/04/21 nebulizers #1 ea 05/06/21 ipratropium 0.5 mg-albuterol 3 mg 3 ml inhalation Q4H PRN wheezing 08/22/21 (2.5 mg base)/3 mL nebulization #180 mL soln ropinirole 1 mg tablet 1 mg PO HS #30 tabs 10/22/21 gabapentin 300 mg capsule 300 mg PO TID Pain #270 caps 12/16/21 atorvastatin 80 mg tablet 80 mg PO QAM #90 tabs 12/19/21 ondansetron 4 mg disintegrating 4 mg PO Q8H PRN nausea and 02/05/22 tablet vomiting #30 tabs naproxen 500 mg tablet 500 mg PO BID PRN pain #180 tabs 02/17/22 prucalopride 2 mg tablet 2 mg PO DAILY #90 tabs 04/24/22 (Motegrity) amlodipine 5 mg tablet 10 mg PO DAILY #60 tabs 04/25/22 magnesium oxide 400 mg (241.3 mg 400 mg PO BID #60 tabs 04/25/22 magnesium) tablet pantoprazole 40 mg tablet,delayed 40 mg PO BID #180 tabs 05/02/22 release diclofenac sodium 1 % topical gel 2 g topical QID PRN Pain #100 grams 05/16/22 aspirin 81 mg tablet,delayed 81 mg PO DAILY #90 tabs 06/17/22 release albuterol sulfate 90 mcg/actuation 2 puff inhalation 6XD PRN Wheezing 07/22/22 aerosol inhaler #8.5 grams fluticasone propionate 50 1 spray intranasal QAM PRN Nasal 07/22/22 mcg/actuation nasal Congestion #16 grams spray,suspension (Flonase Allergy Relief) blood sugar diagnostic (Eubios Therapeutica Private LimitedTouch #1 box 09/19/22 Verio test strips) blood-glucose meter (OneTouch #1 ea 09/19/22 Verio Meter) lancets 30 gauge (Eubios Therapeutica Private LimitedToEnclara Health #100 ea 09/19/22 Plus Lancet) lancing device with lancets kit #1 ea 09/19/22 (GetShopApp DelMarketLive Lancing Device kit) metformin 500 mg tablet,extended 1,000 mg PO BID #180 tabs 10/02/22 release 24 hr semaglutide 7 mg tablet (Rybelsus) 7 mg PO DAILY #30 tabs 10/02/22 glimepiride 4 mg tablet 4 mg PO DAILY #30 tabs 10/04/22 furosemide 40 mg tablet (Lasix) 40 mg PO DAILY #3 tabs 10/20/22 montelukast 10 mg tablet 10 mg PO HS #90 tabs 10/20/22 (Singulair) cyclobenzaprine 10 mg tablet 10 mg PO TID PRN muscle spasm #90 10/22/22 tabs hydrocodone 5 mg-acetaminophen 325 2 tab PO Q6H PRN pain #120 tabs 10/24/22 mg tablet prednisone 20 mg tablet 20 mg PO BID 5 days #10 tabs 10/24/22 Results & Data (ED) Vital Signs Vital Signs - 24 hr 10/26/22 19:47 10/26/22 19:47 10/26/22 20:02 Temperature 36.7 C Temperature Source Oral Pulse Rate 120 H Pulse Rate [Apical] Respiratory Rate 22 Blood Pressure 146/89 H Blood Pressure [Right Arm] Blood Pressure Mean 108 Blood Pressure Mean [Right Arm] Pulse Oximetry 93 95 Oxygen Delivery Method Room Air Room Air Room Air Sepsis Recent Fever Within 48 Hours No Sepsis New/Unexplained Change in Mental Status N/A Sepsis Action Taken by Nursing No Action Required 10/26/22 20:34 10/26/22 20:48 10/26/22 22:00 Temperature Temperature Source Pulse Rate 128 H Pulse Rate [Apical] 130 H 131 H Respiratory Rate 26 H 22 16 Blood Pressure 142/92 H Blood Pressure [Right Arm] 134/96 142/95 H Blood Pressure Mean 108 Blood Pressure Mean [Right Arm] 108 110 Pulse Oximetry 92 92 93 Oxygen Delivery Method Room Air Room Air Sepsis Recent Fever Within 48 Hours Sepsis New/Unexplained Change in Mental Status Sepsis Action Taken by Nursing Laboratory Data 10/26/22 19:28 10/26/22 19:28 Lab Results 10/26/22 10/26/22 10/26/22 Range/Units 19:28 19:28 19:41 WBC 15.68 H (4.8-10.8) K/ul RBC 4.79 (4.20-5.40) M/uL Hgb 14.1 (12.0-16.0) g/dl Hct 41.1 (37.0-47.0) % MCV 85.8 (80.0-100.0) fL MCH 29.4 (25.0-34.0) pg MCHC 34.3 (32.0-36.0) g/dL RDW Std Deviation 41.4 (36.4-46.3) fL RDW Coeff of Joyce 13.3 (11.5-14.5) % Plt Count 305 (130-400) K/uL MPV 10.9 (9.4-12.4) fL Immature Gran % (Auto) 0.3 % Neut % (Auto) 58.0 % Lymph % (Auto) 32.9 % Baxter % (Auto) 7.0 % Eos % (Auto) 1.3 % Baso % (Auto) 0.5 % Neut # (Auto) 9.08 H (1.40-6.50) K/uL Lymph # (Auto) 5.16 H (1.2-3.4) K/uL Baxter # (Auto) 1.10 H (0.11-0.59) K/uL Eos # (Auto) 0.21 (0-0.50) K/uL Baso # (Auto) 0.08 (0-0.2) K/uL Immature Gran # (Auto) 0.05 (0.01-0.20) K/uL VBG pH (7.36-7.41) VBG pCO2 (38-50) mmHg VBG pO2 mmHg VBG HCO3 mmol/L VBG O2 Saturation % VBG Base Excess mEq/L Sodium 138 (136-145) mmol/L Potassium 3.0 L (3.5-5.1) mmol/L Chloride 100 (98-107) mmol/L Carbon Dioxide 19 L (21-32) mmol/L Anion Gap 19 H (3-11) BUN 18 (6-23) mg/dl Creatinine 0.64 (0.6-1.2) mg/dl Est Cr Clr Drug Dosing Not Reportable Est GFR ( Amer) 114.8 ml/min Est GFR (Non-Af Amer) 99.1 ml/min BUN/Creatinine Ratio 28.1 H (10-20) Glucose 247 H (70-99(Fasting)) mg/dl Calcium 9.5 (8.5-10.1) mg/dl Magnesium 1.9 (1.7-2.4) mg/dl Total Bilirubin 0.4 (0.2-1.0) mg/dl AST 36 (13-39) U/L ALT 62 H (7-52) U/L Alkaline Phosphatase 114 H (34-104) U/L Troponin I High Sens 7.9 (0-14) pg/ml B-Natriuretic Peptide 21 (0-100) pg/ml Total Protein 8.2 (6.0-8.3) gm/dl Albumin 4.4 (3.4-5.0) gm/dl Globulin 3.8 (2.5-4.0) gm/dl Albumin/Globulin Ratio 1.2 (0.9-2) Urine Color Urine Appearance (Clear) Urine pH (4.5-7.5) Ur Specific [place] (1.000-1.030) Urine Protein (Negative) Urine Glucose (UA) (Negative) Urine Ketones (Negative) Urine Blood (Negative) Urine Nitrite (Negative) Urine Bilirubin (Negative) Urine Urobilinogen (Negative) Ur Leukocyte Esterase (Negative) Urine WBC (Auto) (0-5) /hpf Urine RBC (Auto) (0-4) /hpf U Hyaline Cast (Auto) (0-5) /lpf U Epithel Cells (Auto) (0-5) /lpf Urine Bacteria (Auto) (Negative) Adenovirus (PCR) (NotDetected) B. pertussis DNA (PCR) (NotDetected) B.parapertussis DNA PCR (NotDetected) C. pneumoniae DNA (PCR) (NotDetected) Coronavirus OC43 (PCR) (NotDetected) Coronavirus HKU1 (PCR) (NotDetected) Coronavirus 229E (PCR) (NotDetected) SARS-CoV-2 (PCR) (NotDetected) Coronavirus NL63 (PCR) (NotDetected) Human Metapneumovir PCR (NotDetected) Influenza Type A (PCR) (NotDetected) Influenza Type B (PCR) (NotDetected) M. pneumoniae (PCR) (NotDetected) Parainfluenza 1 (PCR) (NotDetected) Parainfluenza 2 (PCR) (NotDetected) Parainfluenza 3 (PCR) (NotDetected) Parainfluenza 4 (PCR) (NotDetected) RSV (PCR) (NotDetected) Entero/Rhino (PCR) (NotDetected) 10/26/22 10/26/22 10/26/22 Range/Units 19:41 19:53 20:10 WBC (4.8-10.8) K/ul RBC (4.20-5.40) M/uL Hgb (12.0-16.0) g/dl Hct (37.0-47.0) % MCV (80.0-100.0) fL MCH (25.0-34.0) pg MCHC (32.0-36.0) g/dL RDW Std Deviation (36.4-46.3) fL RDW Coeff of Joyce (11.5-14.5) % Plt Count (130-400) K/uL MPV (9.4-12.4) fL Immature Gran % (Auto) % Neut % (Auto) % Lymph % (Auto) % Baxter % (Auto) % Eos % (Auto) % Baso % (Auto) % Neut # (Auto) (1.40-6.50) K/uL Lymph # (Auto) (1.2-3.4) K/uL Baxter # (Auto) (0.11-0.59) K/uL Eos # (Auto) (0-0.50) K/uL Baso # (Auto) (0-0.2) K/uL Immature Gran # (Auto) (0.01-0.20) K/uL VBG pH 7.41 (7.36-7.41) VBG pCO2 40 (38-50) mmHg VBG pO2 30 mmHg VBG HCO3 25 mmol/L VBG O2 Saturation < 60.0 % VBG Base Excess 0.7 mEq/L Sodium (136-145) mmol/L Potassium (3.5-5.1) mmol/L Chloride (98-107) mmol/L Carbon Dioxide (21-32) mmol/L Anion Gap (3-11) BUN (6-23) mg/dl Creatinine (0.6-1.2) mg/dl Est Cr Clr Drug Dosing Est GFR ( Amer) ml/min Est GFR (Non-Af Amer) ml/min BUN/Creatinine Ratio (10-20) Glucose (70-99(Fasting)) mg/dl Calcium (8.5-10.1) mg/dl Magnesium (1.7-2.4) mg/dl Total Bilirubin (0.2-1.0) mg/dl AST (13-39) U/L ALT (7-52) U/L Alkaline Phosphatase (34-104) U/L Troponin I High Sens (0-14) pg/ml B-Natriuretic Peptide (0-100) pg/ml Total Protein (6.0-8.3) gm/dl Albumin (3.4-5.0) gm/dl Globulin (2.5-4.0) gm/dl Albumin/Globulin Ratio (0.9-2) Urine Color Yellow Urine Appearance Clear (Clear) Urine pH 5.5 (4.5-7.5) Ur Specific [place] 1.012 (1.000-1.030) Urine Protein Negative (Negative) Urine Glucose (UA) 3+ H (Negative) Urine Ketones Negative (Negative) Urine Blood Negative (Negative) Urine Nitrite Negative (Negative) Urine Bilirubin Negative (Negative) Urine Urobilinogen Negative (Negative) Ur Leukocyte Esterase 1+ H (Negative) Urine WBC (Auto) 1-5 (0-5) /hpf Urine RBC (Auto) 0-4 (0-4) /hpf U Hyaline Cast (Auto) 0 (0-5) /lpf U Epithel Cells (Auto) 10-20 H (0-5) /lpf Urine Bacteria (Auto) Negative (Negative) Adenovirus (PCR) Not Detected (NotDetected) B. pertussis DNA (PCR) Not Detected (NotDetected) B.parapertussis DNA PCR Not Detected (NotDetected) C. pneumoniae DNA (PCR) Not Detected (NotDetected) Coronavirus OC43 (PCR) Not Detected (NotDetected) Coronavirus HKU1 (PCR) Not Detected (NotDetected) Coronavirus 229E (PCR) Not Detected (NotDetected) SARS-CoV-2 (PCR) Not Detected (NotDetected) Coronavirus NL63 (PCR) Not Detected (NotDetected) Human Metapneumovir PCR Not Detected (NotDetected) Influenza Type A (PCR) Not Detected (NotDetected) Influenza Type B (PCR) Not Detected (NotDetected) M. pneumoniae (PCR) Not Detected (NotDetected) Parainfluenza 1 (PCR) Not Detected (NotDetected) Parainfluenza 2 (PCR) Not Detected (NotDetected) Parainfluenza 3 (PCR) Not Detected (NotDetected) Parainfluenza 4 (PCR) Not Detected (NotDetected) RSV (PCR) Not Detected (NotDetected) Entero/Rhino (PCR) Not Detected (NotDetected) Administered Medications Discontinued Medications Albuterol (Albut/Ipratrop 3mg/0.5mg Neb 3 Ml Vial) 3 ml NEB NOW STA; Protocol Stop: 10/26/22 19:16 Last Admin: 10/26/22 19:33 Dose: 3 ml Documented By: ROCÍO Sodium Chloride (Nss 1000ml) 500 mls @ 999 mls/hr IV .Q31M ONE Stop: 10/26/22 19:45 Last Infusion: 10/26/22 20:04 Dose: 0 mls/hr Documented By: Admin: 10/26/22 19:33 Dose: 999 mls/hr Documented By: ROCÍO Sodium Chloride (Nss 1000ml) 1,000 mls @ 999 mls/hr IV .Q1H1M ONE Stop: 10/26/22 21:55 Last Infusion: 10/26/22 22:09 Dose: 0 mls/hr Documented By: Admin: 10/26/22 21:01 Dose: 999 mls/hr Documented By: ROCÍO Methylprednisolone (Methylprednisolone 125 Mg/2 Ml Vial) 125 mg IV NOW STA Stop: 10/26/22 19:16 Last Admin: 10/26/22 19:33 Dose: 125 mg Documented By: ROCÍO Imaging Data Radiologist's Impression: Chest X-Ray 10/26/22 19:11 XR chest 1V portable HISTORY: Dyspnea COMPARISON: Chest 10/24/2022. FINDINGS: No pneumothorax. No pleural effusions. The cardiac silhouette remains top normal in size. There are low lung volumes with diffuse chronic interstitial thickening. This is similar to the prior study. No new focal lung consolidations identified. Prior cholecystectomy. IMPRESSION: No change in the low lung volumes and chronic interstitial thickening. ACT 112: Negative or not required by law. Electronically signed by: Kavin Damon M.D. 10/26/2022 7:58 PM Discharge Plan Visit Data Chief Complaint: Shortness of Breath/Dyspnea ED Provider: Aidee Pichardo Discharge Problem: Acute dyspnea, Acute hypokalemia, Hyperglycemia, Tachycardia Forms Stand Alone Forms: [facility] [facility] Prescriptions Prescriptions: No Action (DME) Oxygen Home Liters Per Minute See Rx Instructions .MEDSUPPLY Qty: 1 0RF Rx Instructions: Please get patient set up for oxygen, concentrator, poc, ok to do necessary testing, necessary supplies, lifetime need. ropinirole 1 mg tablet 1 mg PO HS Qty: 30 11RF gabapentin 300 mg capsule 300 mg PO TID Qty: 270 3RF atorvastatin 80 mg tablet 80 mg PO QAM Qty: 90 3RF ondansetron 4 mg tablet,disintegrating 4 mg PO Q8H PRN (Reason: nausea and vomiting) Qty: 30 5RF naproxen 500 mg tablet 500 mg PO BID PRN (Reason: pain) Qty: 180 3RF Motegrity 2 mg tablet 2 mg PO DAILY Qty: 90 3RF magnesium oxide 400 mg (241.3 mg magnesium) tablet 400 mg PO BID Qty: 60 5RF amlodipine 5 mg tablet 10 mg PO DAILY Qty: 60 5RF pantoprazole 40 mg tablet,delayed release (DR/EC) 40 mg PO BID Qty: 180 3RF diclofenac sodium 1 % gel 2 g TOP QID PRN (Reason: Pain) Qty: 100 3RF aspirin 81 mg tablet,delayed release (DR/EC) 81 mg PO DAILY Qty: 90 1RF Rybelsus 7 mg tablet 7 mg PO DAILY Qty: 30 5RF Rx Instructions: SUSPENDED AT PRESENT--NO PHARMACY HAS IN STOCK metformin 500 mg tablet extended release 24 hr 1,000 mg PO BID Qty: 180 3RF montelukast [Singulair] 10 mg tablet 10 mg PO HS Qty: 90 1RF cyclobenzaprine 10 mg tablet 10 mg PO TID PRN (Reason: muscle spasm) Qty: 90 1RF hydrocodone-acetaminophen 5-325 mg tablet 2 tab PO Q6H PRN (Reason: pain) Qty: 120 0RF Rx Instructions: Must last 15 days Centrum Complete 18-400 mg-mcg tablet 1 tab PO QAM (DME) nebulizers Misc See Rx Instructions miscellaneous .MEDSUPPLY Qty: 1 0RF Rx Instructions: Use 4 x a day or as directed. Lifetime need. ipratropium-albuterol 0.5 mg-3 mg(2.5 mg base)/3 mL solution for nebulization 3 ml inhalation Q4H PRN (Reason: wheezing) Qty: 180 5RF glimepiride 4 mg tablet 4 mg PO DAILY Qty: 30 2RF sodium chloride 7 % solution for nebulization 4 ml inhalation BID Qty: 240 5RF albuterol sulfate 90 mcg/actuation HFA aerosol inhaler 2 puff INHALATION 6XD PRN (Reason: Wheezing) Qty: 8.5 3RF fluticasone propionate [Flonase Allergy Relief] 50 mcg/actuation spray,suspension 1 spray INTNAS QAM PRN (Reason: Nasal Congestion) Qty: 16 11RF Rx Instructions: administer into each nostril furosemide [Lasix] 40 mg tablet 40 mg PO DAILY Qty: 3 0RF melatonin 10 mg Tablet 10 mg PO HS PRN (Reason: Sleep) polyethylene glycol 3350 17 gram/dose powder 17 g PO QAM Trelegy Ellipta 200-62.5-25 mcg blister with device 1 inh inhalation QAM diphenhydramine HCl [Benadryl] 25 mg Capsule 25 mg PO HS PRN (Reason: Allergy Symptoms) calcium polycarbophil [Fiber (calcium polycarbophil)] 625 mg Tablet 3,129 mg PO QAM docusate sodium [Colace] 100 mg Capsule 300 mg PO BID cinnamon bark [Cinnamon] 500 mg Capsule 500 mg PO QAM Probiotic 15 billion cell Capsule 30 cap PO QAM Vitamin C And Zinc Tablet 1 tab PO QAM (DME) lancing device with lancets [Eubios Therapeutica Private LimitedTouch Delica Lanc Device] Kit See Rx Instructions .Route Qty: 1 0RF Rx Instructions: As directed - check blood sugars twice daily. (DME) blood-glucose meter [OneTouch Verio Meter] Misc See Rx Instructions .ROUTE .MEDSUPPLY Qty: 1 0RF Rx Instructions: test 2 times daily (DME) OneTouch Verio test strips Strip See Rx Instructions .ROUTE .MEDSUPPLY Qty: 1 0RF Rx Instructions: test at least twice daily (DME) lancets [OneTouch Delica Plus Lancet] 30 gauge misc See Rx Instructions .ROUTE .MEDSUPPLY Qty: 100 0RF Rx Instructions: As directed - check sugars twice daily guaifenesin [Mucinex] 600 mg tablet extended release 12hr 600 mg PO Q12H PRN (Reason: Congestion) prednisone 20 mg tablet 20 mg PO BID 5 Days Qty: 10 0RF Referrals Referrals: Tyrell Mancini MD [Primary Care Provider] -
[2022-10-26] MEDS ORDERED: methylPREDNISolone 125 MG/2 ML VIAL IV STA (19:15)
[2022-10-26] MEDS ORDERED: ALBUT/IPRATROP 3MG/0.5MG NEB 3 ML VIAL NEB STA (19:15)
[2022-10-26] MEDS ORDERED: SODIUM CHLORIDE 0.9% 1000ML 500 ML IV ONE (19:15)
[2022-10-26 20:00] LABS: Alanine Aminotransferase 62 U/L (7-52); Albumin Globulin Ratio 1.2 (0.9-2); Albumin Level 4.4 gm/dl (3.4-5.0); Alkaline Phosphatase 114 U/L (34-104); Anion Gap 19 (3-11); Aspartate Aminotransferase 36 U/L (13-39); BUN Creatinine Ratio 28.1 (10-20); Bilirubin,Total 0.4 mg/dl (0.2-1.0); Blood Urea Nitrogen 18 mg/dl (6-23); Calcium 9.5 mg/dl (8.5-10.1); Carbon Dioxide 19 mmol/L (21-32); Chloride 100 mmol/L (98-107); Est GFR (African American) 114.8 ml/min; Est GFR (Non-African American) 99.1 ml/min; Globulin 3.8 gm/dl (2.5-4.0); Glucose 247 mg/dl (70-99(Fasting)); Magnesium 1.9 mg/dl (1.7-2.4); Sodium 138 mmol/L (136-145); Total Protein 8.2 gm/dl (6.0-8.3)
--- NOTE | 2022-10-26 20:00 | XRay Report ---
XR chest 1V portable HISTORY: Dyspnea COMPARISON: Chest 10/24/2022. FINDINGS: No pneumothorax. No pleural effusions. The cardiac silhouette remains top normal in size. T here are low lung volumes with diffuse chronic interstitial thickening. This is similar to the prior study. No new focal lung consolidations identified. Prior cholecystectomy. IMPRESSION: No change in the low lung volumes and chronic interstitial thickening. ACT 112: Negative or not required by law. Electronically signed by: Kavin Damon M.D. 10/26/2022 7:58 PM
[2022-10-26 20:02] LABS: Base Excess VBG 0.7 mEq/L; HCO3 VBG 25 mmol/L; Oxygen Saturation VBG < 60.0 %; PCO2 VBG 40 mmHg (38-50); PO2 VBG 30 mmHg; pH VBG 7.41 (7.36-7.41)
[2022-10-26 20:06] LABS: Troponin I High Sensitivity 7.9 pg/ml (0-14)
[2022-10-26 20:08] LABS: Hematocrit (blood only) 41.1 % (37.0-47.0); Hemoglobin 14.1 g/dl (12.0-16.0); Mean Corpuscular Hemoglobin 29.4 pg (25.0-34.0); Mean Corpuscular Hgb Conc 34.3 g/dL (32.0-36.0); Mean Corpuscular Volume 85.8 fL (80.0-100.0); Mean Platelet Volume 10.9 fL (9.4-12.4); Platelet Count 305 K/uL (130-400); RDW Coefficient of Variation 13.3 % (11.5-14.5); RDW Standard Deviation 41.4 fL (36.4-46.3); Red Blood Count 4.79 M/uL (4.20-5.40); White Blood Count 15.68 K/ul (4.8-10.8)
[2022-10-26] MEDS ORDERED: OPTIRAY 320 500ml IV ONE ×2 (20:23)
[2022-10-26 20:50] LABS: Basophils # (auto) 0.08 K/uL (0-0.2); Basophils % (auto) 0.5 %; Eosinophils # (auto) 0.21 K/uL (0-0.50); Eosinophils % (auto) 1.3 %; Immature Granulocytes # (auto) 0.05 K/uL (0.01-0.20); Immature Granulocytes % (auto) 0.3 %; Lymphocytes # (auto) 5.16 K/uL (1.2-3.4); Lymphocytes % (auto) 32.9 %; Neutrophils # (auto) 9.08 K/uL (1.40-6.50)
[2022-10-26] MEDS ORDERED: SODIUM CHLORIDE 0.9% 1000ML 1,000 ML IV ONE (20:55)
[2022-10-26 21:03] LABS: Appearance Urine Clear (Clear); Bacteria Urine Automated Negative (Negative); Bilirubin Urine Negative (Negative); Blood Urine Negative (Negative); Cast Urine Automated 0 /lpf (0-5); Color Urine Yellow; Glucose Urine UA 3+ (Negative); Ketones Urine Negative (Negative); Leukocyte Esterase Urine 1+ (Negative); Nitrite Urine Negative (Negative); Protein Urine Negative (Negative); RBC Urine Automated 0-4 /hpf (0-4); Specific Gravity Urine 1.012 (1.000-1.030); Urobilinogen Urine Negative (Negative); pH Urine 5.5 (4.5-7.5)
[2022-10-26 21:03] LABS: Adenovirus PCR Not Detected (NotDetected); Bordetella parapertussis PCR Not Detected (NotDetected); Bordetella pertussis PCR Not Detected (NotDetected); Chlamydia pneumoniae PCR Not Detected (NotDetected); Coronavirus 229E PCR Not Detected (NotDetected); Coronavirus CoV-2 (COVID19)PCR Not Detected (NotDetected); Coronavirus HKU1 PCR Not Detected (NotDetected); Coronavirus NL63 PCR Not Detected (NotDetected); Coronavirus OC43PCR Not Detected (NotDetected); Human Metapneumovirus PCR Not Detected (NotDetected); Influenza A PCR Not Detected (NotDetected); Influenza B PCR Not Detected (NotDetected); Mycoplasma pneumoniae PCR Not Detected (NotDetected); Parainfluenza Virus 1 PCR Not Detected (NotDetected); Parainfluenza Virus 2 PCR Not Detected (NotDetected); Parainfluenza Virus 3 PCR Not Detected (NotDetected); Parainfluenza Virus 4 PCR Not Detected (NotDetected); Respiratory Syncytial VirusPCR Not Detected (NotDetected); Rhinovirus/Enterovirus PCR Not Detected (NotDetected)
[2022-10-26] MEDS ORDERED: LANTUS PER UNIT CHARGE SQ STA (23:18)
--- NOTE | 2022-10-26 23:18 | History & Physical Report ---
Date of Service October 26, 2022 Assessment & Plan (1) Acute dyspnea: Plan: 57yo female with chronic hypoxemic respiratory failure on supplemental O2 at baseline, restrictive lung disease secondary to pulmonary fibrosis from prior H1N1 infection in 2009 presenting with acute dyspnea following exertion. Patient walked up a hill and was not wearing her O2. Remained short of breath. Adequate oxygenation now on 2L NC. CTA without PE or PNA. -Admit to medical with telemetry -Continue supplemental O2 - goal saturation 88-92% -Mag x 1gm (2) Tachycardia: Plan: Ongoing tachycardia - sinus. Adequate O2 now, no pain. Patient did drink one beer today - confirmed this with her x 2. -Telemetry monitoring -Consider Echo -Monitor for possible withdrawal (3) Acute bronchitis: Plan: No PNA on imaging -Continue Guaifenesin -Continue Prednisone (4) GERD (gastroesophageal reflux disease): Plan: -Continue Protonix 40mg BID (5) Interstitial lung disease: Plan: -Ipratropium with Levalbuterol nebs q 6 hours -Continue Umeclidinium/Vilanterol -Continue Singulair -Continue Prednisone 20mg po BID - patient received 250mg IV Solumedrol today -Hypertonic saline nebs BID -Flutter (6) Hypertension: Plan: Chronic. Blood pressure elevated in the ER, now improved -Continue Amlodipine 10mg po daily (7) Diabetes: Plan: -Lantus 10u BID -ISS (8) Restless leg syndrome: Plan: -Continue Ropinirole F/E/N - CC diet as tolerated, Mg x 1gm, K repletion, PO as tolerated Code - Full Dispo - Medical with telemetry History of Present Illness Chief Complaint: Shortness of breath, tachycardia Primary Care Provider: Tyrell Mancini MD Pippa Schmitt is a 57-year-old female with history of restrictive lung disease secondary to pulmonary fibrosis from H1 N1 influenza infection in 2009 with traction bronchiectasis on home oxygen 2 to 3 L, diabetes, hypertension, GERD presenting with shortness of breath and sustained tachycardia. Ms. Schmitt has been having cough and some shortness of breath ongoing for the last several days. She was seen in the ER on 10/24/2022 was found to be stable on her normal 3 L of supplemental oxygen. She was treated with a DuoNeb and Solu-Medrol with clinical improvement and was discharged home in stable condition with prescription for prednisone 60 mg taper.. Patient is presently living in a homeless long term "[facility] the [place]" as she awaits alone to come through so she can get more stable lodging. Her possessions are in storage for the time being including her nebulizer machine. Today she was dropped off at the storage to look for her nebulizer machine. She reports that she was walking up a hill and became very short of breath and tachycardic with a heart rate of 160 bpm and oxygen saturation of 78%. She did not have her portable oxygen on her. She says that her machine gets unplugged at the long term and is never charged. Patient reports that she continues to cough. The cough is recently become productive with green phlegm. She coughed through the night last night. She also reports chest tightness and occasional dizziness. Denies fevers, chills, sweats. No abdominal pain, nausea, vomiting, diarrhea or constipation. No additional complaints at this time Patient with remote history of alcohol abuse. She does admit to drinking 1 can of beer today. In the ER she is afebrile, persistently tachycardic with rates of 120s to 130s, sinus on EKG and monitor. Blood pressure is mildly elevated currently 150/100. She is tachypneic at present 26 breaths/min and saturating well on room air. ER course: Gabapentin 300 mg Singular 10 mg Protonix 40 mg Requip 1 mg Insulin 10 units Normal saline x1500 mL Solu-Medrol 125 mg IV (patient by report also received Solu-Medrol 125 mg by EMS for total of 250 mg today) Albuterol 3 mL neb Allergies Allergy/AdvReac Type Severity Reaction Status Date / Time house dust Allergy Intermediate Difficulty Verified 10/26/22 20:01 Breathing mold Allergy Intermediate ASTHMA Verified 10/26/22 20:01 ATTACK Home Medications Medication Instructions Recorded Confirmed Type melatonin 10 mg tablet 10 mg PO HS PRN Sleep 07/05/18 10/26/22 History multivitamin-ferrous 1 tab PO QAM 09/21/19 10/26/22 History fumarate-folic acid 18 mg-400 mcg tablet (Centrum Complete) polyethylene glycol 3350 17 17 g PO QAM 06/11/20 10/26/22 History gram/dose oral powder sodium chloride 7 % for 4 ml inhalation BID #240 mL 08/28/20 10/26/22 Rx nebulization Oxygen Home #1 ea 02/04/21 10/24/22 Rx nebulizers #1 ea 05/06/21 10/24/22 Rx diphenhydramine HCl 25 mg capsule 25 mg PO HS PRN Allergy Symptoms 06/21/21 10/26/22 History (Benadryl) fluticasone fur. 200 mcg-umeclid 1 inh inhalation QAM interstitial 06/21/21 10/26/22 History 62.5 mcg-vilant 25 mcg lung disease inhalat.powder (Trelegy Ellipta) Lactobacillus acidophilus and 30 cap PO QAM 08/04/21 10/26/22 History rhamnosus 15 billion cell capsule (Probiotic) Vitamin C And Zinc Tablet 1 tab PO QAM 08/04/21 10/26/22 History calcium polycarbophil 625 mg 3,129 mg PO QAM 08/04/21 10/26/22 History tablet (Fiber (calcium polycarbophil)) cinnamon bark 500 mg capsule 500 mg PO QAM 08/04/21 10/26/22 History (Cinnamon) docusate sodium 100 mg capsule 300 mg PO BID 08/04/21 10/26/22 History (Colace) ipratropium 0.5 mg-albuterol 3 mg 3 ml inhalation Q4H PRN wheezing 08/22/21 10/26/22 Rx (2.5 mg base)/3 mL nebulization #180 mL soln ropinirole 1 mg tablet 1 mg PO HS #30 tabs 10/22/21 10/26/22 Rx gabapentin 300 mg capsule 300 mg PO TID Pain #270 caps 12/16/21 10/26/22 Rx atorvastatin 80 mg tablet 80 mg PO QAM #90 tabs 12/19/21 10/26/22 Rx ondansetron 4 mg disintegrating 4 mg PO Q8H PRN nausea and 02/05/22 10/26/22 Rx tablet vomiting #30 tabs naproxen 500 mg tablet 500 mg PO BID PRN pain #180 tabs 02/17/22 10/26/22 Rx prucalopride 2 mg tablet 2 mg PO DAILY #90 tabs 04/24/22 10/26/22 Rx (Motegrity) amlodipine 5 mg tablet 10 mg PO DAILY #60 tabs 04/25/22 10/26/22 Rx magnesium oxide 400 mg (241.3 mg 400 mg PO BID #60 tabs 04/25/22 10/26/22 Rx magnesium) tablet pantoprazole 40 mg tablet,delayed 40 mg PO BID #180 tabs 05/02/22 10/26/22 Rx release diclofenac sodium 1 % topical gel 2 g topical QID PRN Pain #100 grams 05/16/22 10/26/22 Rx aspirin 81 mg tablet,delayed 81 mg PO DAILY #90 tabs 06/17/22 10/26/22 Rx release albuterol sulfate 90 mcg/actuation 2 puff inhalation 6XD PRN Wheezing 07/22/22 10/26/22 Rx aerosol inhaler #8.5 grams fluticasone propionate 50 1 spray intranasal QAM PRN Nasal 07/22/22 10/26/22 Rx mcg/actuation nasal Congestion #16 grams spray,suspension (Flonase Allergy Relief) blood sugar diagnostic (ValveXchangeTouch #1 box 09/19/22 10/24/22 Rx Verio test strips) blood-glucose meter (OneTouch #1 ea 09/19/22 10/24/22 Rx Verio Meter) lancets 30 gauge (ValveXchangeTouch Delica #100 ea 09/19/22 10/24/22 Rx Plus Lancet) lancing device with lancets kit #1 ea 09/19/22 10/24/22 Rx (Indochinouch Delica Lancing Device kit) metformin 500 mg tablet,extended 1,000 mg PO BID #180 tabs 10/02/22 10/26/22 Rx release 24 hr semaglutide 7 mg tablet (Rybelsus) 7 mg PO DAILY #30 tabs 10/02/22 10/26/22 Rx glimepiride 4 mg tablet 4 mg PO DAILY #30 tabs 10/04/22 10/26/22 Rx guaifenesin 600 mg tablet, 600 mg PO Q12H PRN Congestion 10/04/22 10/26/22 History extended release 12 hr (Mucinex) furosemide 40 mg tablet (Lasix) 40 mg PO DAILY #3 tabs 10/20/22 10/26/22 Rx montelukast 10 mg tablet 10 mg PO HS #90 tabs 10/20/22 10/26/22 Rx (Singulair) cyclobenzaprine 10 mg tablet 10 mg PO TID PRN muscle spasm #90 10/22/22 10/26/22 Rx tabs hydrocodone 5 mg-acetaminophen 325 2 tab PO Q6H PRN pain #120 tabs 10/24/22 10/26/22 Rx mg tablet prednisone 20 mg tablet 20 mg PO BID 5 days #10 tabs 10/24/22 10/26/22 Rx Past Med/Surg History Medical History Acute pancreatitis Admitted April 2021- had MRCP at that time- recommended EUS six weeks from April admission Aggressive behavior Anxiety Asthma with exacerbation last used inhaler yesterday Chronic constipation COPD (chronic obstructive pulmonary disease) Depression Diabetes type 2, uncontrolled Hgb A1C 04/25/21 was 7.0 Dysphagia DIFFICULTY SWALLOWING MEDS Foot pain rt tendon "problems" GERD (gastroesophageal reflux disease) Hiatal hernia History of ARDS 2009 (ADMITTED TO [facility] [place]) (SECONDARY TO H1N1 INFECTION)- CONTINUES ON SUPPLEMENTAL OXYGEN History of congestive heart failure 2019 History of ETOH abuse last drink 05-20-20 History of Guillain-Ovalo syndrome DX'D 2009 History of pulmonary embolism 2008 per PCP records - no AC HTN (hypertension) Interstitial lung disease Follows with pulm Lumbar degenerative disc disease Lumbar radiculopathy Mood disorder On home oxygen therapy 2-3L O2 WITH EXERTION AND AT HS Post traumatic stress disorder Pulmonary HTN Restless leg syndrome Surgical History History of anesthesia reaction "I HAVE A HARD TIME BREATHING AFTER ANESTHESIA" History of colonoscopy 2019 History of esophagogastroduodenoscopy (EGD) History of laparoscopic cholecystectomy History of radiofrequency ablation procedure for cardiac arrhythmia 2005-NO F/U CARDIOLOGY History of sinus surgery History of tracheostomy resolved History of tracheostomy Hx H1N1 in 2008 with prolonged intubation and mechanical ventilation for 8 months per patient 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 Family History Grandmother (Paternal) Family history of diabetes mellitus Mother , age 81 of uncertain causes No problems noted. Father , early 50s of lymphoma Lymphoma Other No family history of adverse response to anesthesia No significant family history Social History Smoking Status: Never smoker Second Hand Exposure: No; Hx Alcohol Use: Yes Alcohol type: beer Hx Substance Use: Yes Preferred Language: Belarusian Communication Ability: Effective Visual Impairment: No Limitations Radiology Receptionist Required: No Beliefs That Will Affect Care: Evangelical Evangelical Beliefs: only wants to have a blood transfusion as a last resort marital status: Single Current Living Situation: Alone and Homeless Current Living Situation Comment: pt is living at [address] currently homeless she states current occupational status: disabled 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 How many Children do You have: 0 Feels Safe at Home: Yes Safety Concerns: Feels Safe At This Time Assistive Devices: Glasses, Nebulizer and Oxygen - Continuous Review of Systems Review of Systems: All systems reviewed & are unremarkable except as noted in HPI & below Physical Exam Physical Exam: General: patient resting comfortably, NAD, non-toxic in appearance, AA&O x 4 Skin: warm, dry, intact, no rashes or lesions HEENT: NC/AT, PERRL, EOMI, anicteric sclera, conjunctiva without injection, external ear normal to inspection and nontender, nares patent, moist mucus membranes, dentition intact, no oropharyngeal lesions, neck supple, trachea midline, no LAD, no thyromegaly, no JVD Heart: +S1/S2, regular, tachycardic, no m/r/g Lungs: equal air entry bilaterally, crackles in bilateral bases, no rhonchi/wheezes Abd: +BS, soft, NT/ND, no masses/organomegaly/ascites Ext: warm, 2+ pulses in UE/LE bilaterally, no clubbing/cyanosis or edema Neuro: nonfocal, patient AA&O x 4, speech intact, no facial droop, moving all extremities on command with equal strength 5/5, no tremors Results & Data Results & Data ([facility]) Vital Signs (Past 12 Hours) Vital Signs Temp Pulse Pulse Resp BP BP Pulse Ox 10/26/22 22:00 131 H 16 142/95 H 93 10/26/22 20:48 130 H 22 134/96 92 10/26/22 20:34 128 H 26 H 142/92 H 92 10/26/22 20:02 95 10/26/22 19:47 10/26/22 19:47 36.7 C 120 H 22 146/89 H 93 O2 Del Method 10/26/22 22:00 Room Air 10/26/22 20:48 Room Air 10/26/22 20:34 10/26/22 20:02 Room Air 10/26/22 19:47 Room Air 10/26/22 19:47 Room Air Laboratory Results Laboratory Results WBC 15.68 K/ul (4.8-10.8) H 10/26/22 19:28 RBC 4.79 M/uL (4.20-5.40) 10/26/22 19:28 Hgb 14.1 g/dl (12.0-16.0) 10/26/22 19: Hct 41.1 % (37.0-47.0) 10/26/22 19: MCV 85.8 fL (80.0-100.0) 10/26/22 19: MCH 29.4 pg (25.0-34.0) 10/26/22 19: MCHC 34.3 g/dL (32.0-36.0) 10/26/22 19: RDW Std Deviation 41.4 fL (36.4-46.3) 10/26/22: RDW Coeff of Joyce 13.3 % (11.5-14.5) 10/26/22 19: Plt Count 305 K/uL (130-400) 10/26/22 19: MPV 10.9 fL (9.4-12.4) 10/26/22 19: Immature Gran % (Auto) 0.3 % 10/26/22 19: Neut % (Auto) 58.0 % 10/26/22 19: Lymph % (Auto) 32.9 % 10/26/22 19: Divide % (Auto) 7.0 % 10/26/22 19: Eos % (Auto) 1.3 % 10/26/22 19: Baso % (Auto) 0.5 % 10/26/22: Neut # (Auto) 9.08 K/uL (1.40-6.50) H 10/26/22 19: Lymph # (Auto) 5.16 K/uL (1.2-3.4) H 10/26/22 19:28 Divide # (Auto) 1.10 K/uL (0.11-0.59) H 10/26/22 19: Eos # (Auto) 0.21 K/uL (0-0.50) 10/26/22 19:28 Baso # (Auto) 0.08 K/uL (0-0.2) 10/26/22 19: Immature Gran # (Auto) 0.05 K/uL (0.01-0.20) 10/26/22 19:28 VBG pH 7.41 (7.36-7.41) 10/26/22:53 VBG pCO2 40 mmHg (38-50) 10/26/22: VBG pO2 30 mmHg 10/26/22:53 VBG HCO3 25 mmol/L 10/26/22:53 VBG O2 Saturation < 60.0 % 10/26/22:53 VBG Base Excess 0.7 mEq/L 10/26/22:53 Sodium 138 mmol/L (136-145) 10/26/22 19: Potassium 3.0 mmol/L (3.5-5.1) L 10/26/22 19: Chloride 100 mmol/L (98-107) 10/26/22: Carbon Dioxide 19 mmol/L (21-32) L 10/26/22 19:28 Anion Gap 19 (3-11) H 10/26/22 19:28 BUN 18 mg/dl (6-23) 10/26/22 19: Creatinine 0.64 mg/dl (0.6-1.2) 10/26/22 19:28 Est Cr Clr Drug Dosing Not Reportable 10/26/22 19:28 Est GFR ( Amer) 114.8 ml/min 10/26/22 19: Est GFR (Non-Af Amer) 99.1 ml/min 10/26/22 19:28 BUN/Creatinine Ratio 28.1 (10-20) H 10/26/22 19:28 Glucose 247 mg/dl (70-99(Fasting)) H 10/26/22 19:28 POC Glucose 304 mg/dl (70-99) H* 10/26/22 23:58 Calcium 9.5 mg/dl (8.5-10.1) 10/26/22 19:28 Magnesium 1.9 mg/dl (1.7-2.4) 10/26/22 19:28 Total Bilirubin 0.4 mg/dl (0.2-1.0) 10/26/22 19:28 AST 36 U/L (13-39) 10/26/22 19:28 ALT 62 U/L (7-52) H 10/26/22 19:28 Alkaline Phosphatase 114 U/L (34-104) H 10/26/22 19:28 Troponin I High Sens 7.9 pg/ml (0-14) 10/26/22 19:28 B-Natriuretic Peptide 21 pg/ml (0-100) 10/26/22 19:41 Total Protein 8.2 gm/dl (6.0-8.3) 10/26/22 19:28 Albumin 4.4 gm/dl (3.4-5.0) 10/26/22 19:28 Globulin 3.8 gm/dl (2.5-4.0) 10/26/22 19:28 Albumin/Globulin Ratio 1.2 (0.9-2) 10/26/22 19:28 Urine Color Yellow 10/26/22 20:10 Urine Appearance Clear (Clear) 10/26/22 20:10 Urine pH 5.5 (4.5-7.5) 10/26/22 20:10 Ur Specific [place] 1.012 (1.000-1.030) 10/26/22 20:10 Urine Protein Negative (Negative) 10/26/22 20:10 Urine Glucose (UA) 3+ (Negative) H 10/26/22 20:10 Urine Ketones Negative (Negative) 10/26/22 20:10 Urine Blood Negative (Negative) 10/26/22 20:10 Urine Nitrite Negative (Negative) 10/26/22 20:10 Urine Bilirubin Negative (Negative) 10/26/22 20:10 Urine Urobilinogen Negative (Negative) 10/26/22 20:10 Ur Leukocyte Esterase 1+ (Negative) H 10/26/22 20:10 Urine WBC (Auto) 1-5 /hpf (0-5) 10/26/22 20:10 Urine RBC (Auto) 0-4 /hpf (0-4) 10/26/22 20:10 U Hyaline Cast (Auto) 0 /lpf (0-5) 10/26/22 20:10 U Epithel Cells (Auto) 10-20 /lpf (0-5) H 10/26/22 20:10 Urine Bacteria (Auto) Negative (Negative) 10/26/22 20:10 Adenovirus (PCR) Not Detected (NotDetected) 10/26/22 19:41 B. pertussis DNA (PCR) Not Detected (NotDetected) 10/26/22 19:41 B.parapertussis DNA PCR Not Detected (NotDetected) 10/26/22 19:41 C. pneumoniae DNA (PCR) Not Detected (NotDetected) 10/26/22 19:41 Coronavirus OC43 (PCR) Not Detected (NotDetected) 10/26/22 19:41 Coronavirus HKU1 (PCR) Not Detected (NotDetected) 10/26/22 19:41 Coronavirus 229E (PCR) Not Detected (NotDetected) 10/26/22 19:41 SARS-CoV-2 (PCR) Not Detected (NotDetected) 10/26/22 19:41 Coronavirus NL63 (PCR) Not Detected (NotDetected) 10/26/22 19:41 Human Metapneumovir PCR Not Detected (NotDetected) 10/26/22 19:41 Influenza Type A (PCR) Not Detected (NotDetected) 10/26/22 19:41 Influenza Type B (PCR) Not Detected (NotDetected) 10/26/22 19:41 M. pneumoniae (PCR) Not Detected (NotDetected) 10/26/22 19:41 Parainfluenza 1 (PCR) Not Detected (NotDetected) 10/26/22 19:41 Parainfluenza 2 (PCR) Not Detected (NotDetected) 10/26/22 19:41 Parainfluenza 3 (PCR) Not Detected (NotDetected) 10/26/22 19:41 Parainfluenza 4 (PCR) Not Detected (NotDetected) 10/26/22 19:41 RSV (PCR) Not Detected (NotDetected) 10/26/22 19:41 Entero/Rhino (PCR) Not Detected (NotDetected) 10/26/22 19:41 Impressions Chest X-Ray 10/26/22 19:11 XR chest 1V portable HISTORY: Dyspnea COMPARISON: Chest 10/24/2022. FINDINGS: No pneumothorax. No pleural effusions. The cardiac silhouette remains top normal in size. There are low lung volumes with diffuse chronic interstitial thickening. This is similar to the prior study. No new focal lung consolidations identified. Prior cholecystectomy. IMPRESSION: No change in the low lung volumes and chronic interstitial thickening. ACT 112: Negative or not required by law. Electronically signed by: Kavin Damon M.D. 10/26/2022 7:58 PM PG Care Time/CCT Total # of Minutes Spent Total Time Spent with Patient: Total time spent is greater than 50% in coordination of care (as documented) at patient's floor/unit and/or counseling patient: Coding Level of Care Code 21615 INT INP/OBS CARE 3/75MIN Diagnoses Acute dyspnea R06.00 Tachycardia R00.0 Acute bronchitis J20.9 Bronchitis organism: unspecified organism GERD (gastroesophageal reflux disease) K21.9 Interstitial lung disease J84.9 Hypertension I10 Diabetes E11.9 Restless leg syndrome G25.81 (1) Acute bronchitis Bronchitis organism: unspecified organism Qualified Code(s): J20.9 - Acute bronchitis, unspecified
[2022-10-26] MEDS ORDERED: rOPINIRole HCL 1 MG TABLET PO STA (23:22)
[2022-10-26] MEDS ORDERED: PANTOprazole 40 MG TAB PO STA (23:22)
[2022-10-26] MEDS ORDERED: GABAPENTIN 300 MG CAP PO STA (23:22)
[2022-10-26] MEDS ORDERED: MONTELUKAST SODIUM 10 MG TABLET PO STA (23:28)
[2022-10-27] MEDS ORDERED: DEXTROSE 50% 50 ML SYRINGE IV PRN (01:33)
[2022-10-27] MEDS ORDERED: FLUTICASONE PROPIONATE NA SPR 16 GM BTL PRN (01:33)
[2022-10-27] MEDS ORDERED: XOPENEX/ATROVENT 0.63mg/0.5MG NEB COMBO NEB SCH (01:33)
[2022-10-27] MEDS ORDERED: ACETAMINOPHEN 325 MG TAB PO PRN (01:33)
[2022-10-27] MEDS ORDERED: GLUCOSE 40% GEL 15 GM TUBE PO PRN (01:33)
[2022-10-27] MEDS ORDERED: GLUCOSE 10 TAB/TUBE PO PRN (01:33)
[2022-10-27] MEDS ORDERED: MAGNESIUM SULFATE / D5W 1 GM/100 ML BAG IV ONE (01:33)
[2022-10-27] MEDS ORDERED: GLUCAGON FOR INJ 1 MG VIAL SQ PRN (01:33)
[2022-10-27] MEDS ORDERED: NAPROXEN 250 MG TAB PO PRN (01:33)
[2022-10-27] MEDS ORDERED: ONDANSETRON INJ 2 MG/ML 2 ML VIAL IV PRN (01:33)
[2022-10-27] MEDS ORDERED: CYCLOBENZAPRINE HCL 10 MG TAB PO PRN (01:33)
[2022-10-27] MEDS ORDERED: POTASSIUM CHLORIDE CRTAB 20 MEQ TABCR PO STA (01:33)
[2022-10-27] MEDS ORDERED: CARBOHYDRATES FOR HYPOGLYCEMIA PO PRN (01:33)
[2022-10-27] MEDS: LORazepam 2 MG/1 ML VIAL IV STA ×2 (01:39→02:35)
[2022-10-27] MEDS: HYDROCODONE/ACETAMOPHEN 5/325MG TAB PO PRN (02:33)
[2022-10-27] MEDS: INSULIN ASPART PER UNIT SC SCH ×5 (03:34→20:44)
[2022-10-27] MEDS ORDERED: SODIUM CHLOR 7% 4 ML NEB INH SCH (07:00)
[2022-10-27] MEDS: LEVALBUTEROL HCL 0.63 MG/3 ML NEB NEB SCH ×3 (07:28→21:56)
[2022-10-27] MEDS: IPRATROPIUM BROMIDE NEB SOLN 0.02% 2.5 ML VIAL INH SCH ×3 (07:28→21:56)
--- NOTE | 2022-10-27 07:37 | CT Scan Report ---
CT angio chest PE protocol CLINICAL HISTORY: PE TECHNIQUE: Multidetector row helical CT of the chest was performed with angiographic protocol. Price l and sagittal reformations were obtained. Coronal and sagittal MIPS were obtained from the axial tawanna a set and were submitted for review. Automated dose lowering techniques and/or adjustment according to patient size were utilized for this exam. CT DOSE: 315.68 mGy.cm Comparison: Comparison is made to CTA chest 10/07/2020 FINDINGS: Lungs and pleura: Pulmonary fibrotic changes are seen most prominently in the bilateral upper lobes. Heart and pericardium: Heart size is normal. No pericardial effusion. Vessels: No evidence of pulmonary embolism. Pulmonary trunk measures 33 mm in diameter. Mediastinum and abraham: Unremarkable. Chest wall and lower neck: Unremarkable. Abdomen: A hiatal hernia is seen. Bones: Mild degenerative changes are seen. IMPRESSION: 1. No pulmonary embolus is seen. 2. Pulmonary fibrotic changes are seen. ACT 112: Negative or not required by law. Electronically signed by: Nolberto Suh M.D. 10/27/2022 7:35 AM
[2022-10-27] MEDS: ATORVASTATIN 40 MG TAB PO SCH ×2 (08:36→17:08)
[2022-10-27] MEDS: POLYETHYLENE (MIRALAX) 17 GM PACK PO SCH ×2 (08:36→20:48)
[2022-10-27] MEDS: guaiFENesin 600 MG TABCR PO PRN ×2 (08:36→20:47)
[2022-10-27] MEDS: FUROSEMIDE 40 MG TAB PO SCH (08:36)
[2022-10-27] MEDS: PANTOprazole 40 MG TAB PO SCH ×2 (08:37→20:48)
[2022-10-27] MEDS: ASPIRIN 81 MG ECTAB PO SCH (08:37)
[2022-10-27] MEDS: predniSONE 20 MG TAB PO SCH ×2 (08:37→20:48)
[2022-10-27] MEDS: DOCUSATE SODIUM 100 MG CAP PO SCH ×2 (08:37→20:49)
[2022-10-27] MEDS: amLODIPine BESYLATE 5 MG TAB PO SCH (08:37)
[2022-10-27] MEDS: GABAPENTIN 300 MG CAP PO SCH ×3 (08:37→20:46)
[2022-10-27] MEDS: UMECLIDINIUM/VILANTEROL 62.5/25MCG 7 PUFFS/INHALER INH SCH (08:38)
[2022-10-27] MEDS: FLUTICASONE FUROATE 200MCG 14 PUFFS/INHALER INH SCH (08:39)
--- NOTE | 2022-10-27 08:44 | Electrocardiogram Report ---
Test Reason : Blood Pressure : / mmHG Vent. Rate : 126 BPM Atrial Rate : 126 BPM P-R Int : 148 ms QRS Dur : 080 ms QT Int : 304 ms P-R-T Axes : 039 -21 025 degrees QTc Int : 440 ms Poor data quality, interpretation may be adversely affected Sinus tachycardia Inferior infarct , age undetermined Possible Anterior infarct (cited on or before 06-MAY-2014) Nonspecific T wave abnormality Abnormal ECG When compared with ECG of 24-OCT-2022 20:21, No significant change Confirmed by Hemant Khoury ([id number]) on 10/27/2022 8:44:20 AM Referred By: REFERRED SELF Confirmed By:Hemant Khoury
[2022-10-27] MEDS ORDERED: LANTUS PER UNIT CHARGE SQ SCH (09:00)
[2022-10-27] MEDS ORDERED: NON-FORMULARY MEDICATION (Fluticasone-Umeclidin-Vilanter [Trelegy Ellipta] 200-62.5-25 mcg INH SCH (09:00)
[2022-10-27 09:07] LABS: Hematocrit (blood only) 37.2 % (37.0-47.0); Hemoglobin 12.9 g/dl (12.0-16.0); Mean Corpuscular Hemoglobin 29.7 pg (25.0-34.0); Mean Corpuscular Hgb Conc 34.7 g/dL (32.0-36.0); Mean Corpuscular Volume 85.5 fL (80.0-100.0); Mean Platelet Volume 10.7 fL (9.4-12.4); Platelet Count 306 K/uL (130-400); RDW Coefficient of Variation 13.2 % (11.5-14.5); RDW Standard Deviation 41.1 fL (36.4-46.3); Red Blood Count 4.35 M/uL (4.20-5.40); White Blood Count 10.68 K/ul (4.8-10.8)
[2022-10-27 10:14] LABS: BUN Creatinine Ratio 23.3 (10-20); Calcium 9.3 mg/dl (8.5-10.1); Creatinine Clr Calc Pharmacy 79.7 ml/min; Est GFR (Non-African American) 91.4 ml/min
[2022-10-27] MEDS ORDERED: PHARMACY GLYCEMIC MGMT CONSULT PRN (12:01)
[2022-10-27] MEDS ORDERED: LANTUS PER UNIT CHARGE SQ ONE (12:15)
[2022-10-27] MEDS ORDERED: PERFLUTREN LIPID MICROSPHERE (DEFINITY) IV ONE (13:24)
--- NOTE | 2022-10-27 13:51 | Pharmacy Report ---
Pharmacy Glycemic Short Note 2 - Date of Service October 27, 2022 - Glycemic Short BSG Results (Last 24 hours): 10/26/22 10/26/22 10/27/22 19:28 23:58 07:26 Glucose 247 H POC Glucose 304 H* 263 H 10/27/22 10/27/22 08:49 11:20 Glucose 322 H* POC Glucose 229 H OUTPATIENT ANTIDIABETIC REGIMEN: * Metformin 1 g PO BIDM * Glimepiride 4 mg PO daily HbA1c: 8% (09/15/22) ASSESSMENT: * WR is a 57 year old female who presents with acute dyspnea on exertion * Pertinent PMH includes interstitial lung disease, HTN, sinus tachycardia, and T2DM * Received 125 mg IV Solu-medrol yesterday followed by prednisone 20 mg PO BID ongoing starting this morning * Pharmacy consulted at lunchtime today due to hyperglycemia * At time of consult, will give increased Lantus dose to equal ~weight-based stress of 2.5 dosing * Uncontrolled T2DM on oral medications (HbA1c: 8%) PLAN FOR INPATIENT GLYCEMIC CONTROL: * Hold outpatient oral diabetes medications * Basal insulin * Lantus 10 units SC x 1 this morning * Lantus 20 units SC x 1 with lunch * Will reassess in AM * Bolus insulin - tighten * NovoLog per scale ACHS or Q6hrs while NPO * Goal Range: Low 110 mg/dL - High 140 mg/dL * Correction Factor: 25 mg/dL/unit * Nutritional / Prandial insulin per carb ratio of 1 unit per 8 grams CHO consumed
[2022-10-27] MEDS ORDERED: LORazepam 2 MG/1 ML VIAL IV STA (18:37)
[2022-10-27] MEDS: GABAPENTIN 600 MG TAB PO SCH (20:46)
[2022-10-27] MEDS: rOPINIRole HCL 1 MG TABLET PO SCH (20:48)
[2022-10-27] MEDS: MONTELUKAST SODIUM 10 MG TABLET PO SCH (20:48)
[2022-10-27] MEDS: MELATONIN 3 MG TAB PO PRN (20:49)
[2022-10-27] MEDS: diphenhydrAMINE Capsule 25 MG CAP PO PRN (20:49)
[2022-10-27] MEDS: CEFEPIME 2,000 MG in SYRINGE 0 ML IV SCH (20:54)
--- NOTE | 2022-10-27 21:07 | Hospitalist Progress Note ---
Date of Service October 27, 2022 Assessment & Plan (1) Acute dyspnea: Plan: 57yo female with chronic hypoxemic respiratory failure on supplemental O2 at baseline, restrictive lung disease secondary to pulmonary fibrosis from prior H1N1 infection in 2009 presenting with acute dyspnea following exertion. Patient walked up a hill and was not wearing her O2. Remained short of breath. Adequate oxygenation now on 2L NC. CTA without PE or PNA. -Admit to medical with telemetry -Continue supplemental O2 - goal saturation 88-92% -Mag x 1gm Will treat as a COPD exacerbation given increase sputum production, will place on cefepime, and monitor. Patient appears to be doing better this afternoon (2) Tachycardia: Plan: Ongoing tachycardia - sinus. Adequate O2 now, no pain. Patient did drink one beer today - confirmed this with her x 2. -Telemetry monitoring -Consider Echo -Monitor for possible withdrawal -will order additional lorazepam and monitor her heart rate (3) Acute bronchitis: Plan: No PNA on imaging -Continue Guaifenesin -Continue Prednisone (4) GERD (gastroesophageal reflux disease): Plan: -Continue Protonix 40mg BID (5) Interstitial lung disease: Plan: -Ipratropium with Levalbuterol nebs q 6 hours -Continue Umeclidinium/Vilanterol -Continue Singulair -Continue Prednisone 20mg po BID - patient received 250mg IV Solumedrol today -Hypertonic saline nebs BID -Flutter (6) Hypertension: Plan: Chronic. Blood pressure elevated in the ER, now improved -Continue Amlodipine 10mg po daily (7) Diabetes: Plan: -Lantus 10u BID -ISS (8) Restless leg syndrome: Plan: -Continue Ropinirole F/E/N - CC diet as tolerated, Mg x 1gm, K repletion, PO as tolerated Code - Full Dispo - Medical with telemetry Admission and Anticipated Discharge Date Admission Date: October 26, 2022 Subjective 57 yo female is resting comfortably. he has been coughing throughout the day. Review of Systems Review of Systems: All systems reviewed & are unremarkable except as noted in HPI & below Physical Exam Physical Exam: General: patient resting comfortably, NAD, non-toxic in appearance, AA&O x 4 Skin: warm, dry, intact, no rashes or lesions HEENT: NC/AT, PERRL, EOMI, anicteric sclera, conjunctiva without injection, external ear normal to inspection and nontender, nares patent, moist mucus membranes, dentition intact, no oropharyngeal lesions, neck supple, trachea midline, no LAD, no thyromegaly, no JVD Heart: +S1/S2, regular, tachycardic, no m/r/g Lungs: equal air entry bilaterally, crackles in bilateral bases, no rhonchi/wheezes Abd: +BS, soft, NT/ND, no masses/organomegaly/ascites Ext: warm, 2+ pulses in UE/LE bilaterally, no clubbing/cyanosis or edema Neuro: nonfocal, patient AA&O x 4, speech intact, no facial droop, moving all extremities on command with equal strength 5/5, no tremors Results & Data Results & Data ([facility]) Vital Signs (Past 12 Hours) Vital Signs Temp Pulse Pulse Resp BP BP Pulse Ox 10/27/22 19:12 37 C 111 H 18 123/78 95 10/27/22 15:18 107 H 10/27/22 15:12 37.0 C 100 H 18 142/85 H 92 10/27/22 13:52 102 H 16 95 10/27/22 10:58 37.1 C 110 H 18 137/86 93 O2 Del Method O2 Flow Rate 10/27/22 19:12 Nasal Cannula 2 10/27/22 15:18 10/27/22 15:12 Room Air 10/27/22 13:52 Room Air 10/27/22 10:58 Room Air PG Care Time/CCT Total # of Minutes Spent Total Time Spent with Patient: Total time spent is greater than 50% in coordination of care (as documented) at patient's floor/unit and/or counseling patient: Coding Level of Care Code 99369 SUB INP/OBS CARE 2/35MIN Diagnoses Acute dyspnea R06.00 Tachycardia R00.0 Acute bronchitis J20.9 Bronchitis organism: unspecified organism GERD (gastroesophageal reflux disease) K21.9 Interstitial lung disease J84.9 Hypertension I10 Diabetes E11.9 Restless leg syndrome G25.81 (3) Acute bronchitis Bronchitis organism: unspecified organism Qualified Code(s): J20.9 - Acute bronchitis, unspecified
--- NOTE | 2022-10-27 21:37 | XCELERA ---
[id number] \\[id number]
[2022-10-28] MEDS: LEVALBUTEROL HCL 0.63 MG/3 ML NEB NEB SCH ×4 (00:31→19:35)
[2022-10-28] MEDS: IPRATROPIUM BROMIDE NEB SOLN 0.02% 2.5 ML VIAL INH SCH ×4 (00:31→19:35)
[2022-10-28] MEDS: CEFEPIME 2,000 MG in SYRINGE 0 ML IV SCH ×3 (05:07→21:34)
[2022-10-28] MEDS: amLODIPine BESYLATE 5 MG TAB PO SCH (07:29)
[2022-10-28] MEDS: DOCUSATE SODIUM 100 MG CAP PO SCH ×2 (07:29→21:35)
[2022-10-28] MEDS: ASPIRIN 81 MG ECTAB PO SCH (07:29)
[2022-10-28] MEDS: predniSONE 20 MG TAB PO SCH ×2 (07:29→21:34)
[2022-10-28] MEDS: ATORVASTATIN 40 MG TAB PO SCH (07:30)
[2022-10-28] MEDS: FUROSEMIDE 40 MG TAB PO SCH (07:30)
[2022-10-28] MEDS: PANTOprazole 40 MG TAB PO SCH ×2 (07:30→21:35)
[2022-10-28] MEDS: FLUTICASONE FUROATE 200MCG 14 PUFFS/INHALER INH SCH (07:31)
[2022-10-28] MEDS: POLYETHYLENE (MIRALAX) 17 GM PACK PO SCH ×2 (07:31→21:33)
[2022-10-28] MEDS: UMECLIDINIUM/VILANTEROL 62.5/25MCG 7 PUFFS/INHALER INH SCH (07:31)
[2022-10-28 07:54] LABS: Hematocrit (blood only) 38.8 % (37.0-47.0); Hemoglobin 13.1 g/dl (12.0-16.0); Mean Corpuscular Hemoglobin 29.2 pg (25.0-34.0); Mean Corpuscular Hgb Conc 33.8 g/dL (32.0-36.0); Mean Corpuscular Volume 86.4 fL (80.0-100.0); Mean Platelet Volume 10.8 fL (9.4-12.4); Platelet Count 258 K/uL (130-400); RDW Coefficient of Variation 13.2 % (11.5-14.5); RDW Standard Deviation 41.3 fL (36.4-46.3); Red Blood Count 4.49 M/uL (4.20-5.40); White Blood Count 11.98 K/ul (4.8-10.8)
[2022-10-28 08:06] LABS: BUN Creatinine Ratio 37.3 (10-20); C Reactive Protein 0.93 mg/dl (0-0.5); Calcium 9.6 mg/dl (8.5-10.1); Creatinine Clr Calc Pharmacy 77.6 ml/min; Est GFR (African American) 102.6 ml/min; Est GFR (Non-African American) 88.5 ml/min; Potassium 4.2 mmol/L (3.5-5.1)
[2022-10-28] MEDS: LANTUS PER UNIT CHARGE SQ SCH ×2 (08:49→21:35)
[2022-10-28] MEDS: INSULIN ASPART PER UNIT SC SCH ×4 (08:50→21:19)
[2022-10-28] MEDS: HYDROCODONE/ACETAMOPHEN 5/325MG TAB PO PRN ×2 (09:35→21:34)
--- NOTE | 2022-10-28 10:22 | Pharmacy Report ---
Pharmacy Glycemic Short Note 2 - Date of Service October 28, 2022 - Glycemic Short BSG Results (Last 24 hours): 10/27/22 10/27/22 10/27/22 11:20 16:28 20:12 Glucose POC Glucose 229 H 245 H 184 H 10/28/22 10/28/22 07:03 07:41 Glucose 263 H POC Glucose 262 H OUTPATIENT ANTIDIABETIC REGIMEN: * Metformin 1 g PO BIDM * Glimepiride 4 mg PO daily HbA1c: 8% (09/15/22) ASSESSMENT: 10/28/22: * BSGs remained elevated throughout the day yesterday w/ fasting BSG of 262 mg/dL this morning * Received 65 units of insulin (30 units of basal and 35 units of prandial/correctional bolus) * Will increase basal insulin today and tighten Novolog parameters * Continues on prednisone 20 mg PO BID 10/27/22: * WR is a 57 year old female who presents with acute dyspnea on exertion * Pertinent PMH includes interstitial lung disease, HTN, sinus tachycardia, and T2DM * Received 125 mg IV Solu-medrol yesterday followed by prednisone 20 mg PO BID ongoing starting this morning * Pharmacy consulted at lunchtime today due to hyperglycemia * At time of consult, will give increased Lantus dose to equal ~weight-based stress of 2.5 dosing * Uncontrolled T2DM on oral medications (HbA1c: 8%) PLAN FOR INPATIENT GLYCEMIC CONTROL: * Hold outpatient oral diabetes medications * Basal insulin * Lantus 18 units SC BID * Bolus insulin - tighten * NovoLog per scale ACHS or Q6hrs while NPO * Goal Range: Low 110 mg/dL - High 140 mg/dL * Correction Factor: 15 mg/dL/unit * Nutritional / Prandial insulin per carb ratio of 1 unit per 5 grams CHO consumed
[2022-10-28] MEDS: MONTELUKAST SODIUM 10 MG TABLET PO SCH (21:33)
[2022-10-28] MEDS: GABAPENTIN 600 MG TAB PO SCH (21:34)
[2022-10-28] MEDS: rOPINIRole HCL 1 MG TABLET PO SCH (21:34)
[2022-10-28] MEDS: MELATONIN 3 MG TAB PO PRN (21:35)
[2022-10-28] MEDS: diphenhydrAMINE Capsule 25 MG CAP PO PRN (21:35)
--- NOTE | 2022-10-28 22:09 | Hospitalist Progress Note ---
Date of Service October 28, 2022 Assessment & Plan (1) Acute dyspnea: Plan: 57yo female with chronic hypoxemic respiratory failure on supplemental O2 at baseline, restrictive lung disease secondary to pulmonary fibrosis from prior H1N1 infection in 2009 presenting with acute dyspnea following exertion. Patient walked up a hill and was not wearing her O2. Remained short of breath. Adequate oxygenation now on 2L NC. CTA without PE or PNA. -Admit to medical with telemetry -Continue supplemental O2 - goal saturation 88-92% Will treat as a COPD exacerbation given increase sputum production, will place on cefepime, and monitor. Patient appears to be doing better this afternoon CPD exacerbation placed on cefepime, will monitor. (2) Tachycardia: Plan: Ongoing tachycardia - sinus. Adequate O2 now, no pain. Patient did drink one beer today - confirmed this with her x 2. -Telemetry monitoring -Consider Echo -Monitor for possible withdrawal -will order additional lorazepam and monitor her heart rate (3) Acute bronchitis: Plan: No PNA on imaging -Continue Guaifenesin -Continue Prednisone (4) GERD (gastroesophageal reflux disease): Plan: -Continue Protonix 40mg BID (5) Interstitial lung disease: Plan: -Ipratropium with Levalbuterol nebs q 6 hours -Continue Umeclidinium/Vilanterol -Continue Singulair -Continue Prednisone 20mg po BID - patient received 250mg IV Solumedrol today -Hypertonic saline nebs BID -Flutter (6) Hypertension: Plan: Chronic. Blood pressure elevated in the ER, now improved -Continue Amlodipine 10mg po daily (7) Diabetes: Plan: -Lantus 10u BID -ISS (8) Restless leg syndrome: Plan: -Continue Ropinirole F/E/N - CC diet as tolerated, Mg x 1gm, K repletion, PO as tolerated Code - Full Dispo - Medical with telemetry Admission and Anticipated Discharge Date Admission Date: October 26, 2022 Subjective Patient reports she continues to cough. Review of Systems Review of Systems: All systems reviewed & are unremarkable except as noted in HPI & below Physical Exam Physical Exam: General: patient resting comfortably, NAD, non-toxic in appearance, AA&O x 4 Skin: warm, dry, intact, no rashes or lesions HEENT: NC/AT, PERRL, EOMI, anicteric sclera, conjunctiva without injection, external ear normal to inspection and nontender, nares patent, moist mucus membranes, dentition intact, no oropharyngeal lesions, neck supple, trachea midline, no LAD, no thyromegaly, no JVD Heart: +S1/S2, regular, tachycardic, no m/r/g Lungs: equal air entry bilaterally, crackles in bilateral bases, no rhonchi/wheezes Abd: +BS, soft, NT/ND, no masses/organomegaly/ascites Ext: warm, 2+ pulses in UE/LE bilaterally, no clubbing/cyanosis or edema Neuro: nonfocal, patient AA&O x 4, speech intact, no facial droop, moving all extremities on command with equal strength 5/5, no tremors Results & Data Results & Data ([facility]) Vital Signs (Past 12 Hours) Vital Signs Temp Pulse Pulse Pulse Resp BP Pulse Ox 10/28/22 22:07 99 H 18 96 10/28/22 22:06 96 10/28/22 19:44 36.7 C 112 H 20 124/71 91 10/28/22 15:44 36.7 C 112 H 20 118/77 95 10/28/22 15:20 128 H 10/28/22 13:04 128 H 16 93 10/28/22 10:51 O2 Del Method O2 Flow Rate 10/28/22 22:07 Nasal Cannula 2 10/28/22 22:06 Nasal Cannula 2 10/28/22 19:44 Room Air 10/28/22 15:44 Room Air 10/28/22 15:20 10/28/22 13:04 Room Air 10/28/22 10:51 Nasal Cannula 2 PG Care Time/CCT Total # of Minutes Spent Total Time Spent with Patient: Total time spent is greater than 50% in coordination of care (as documented) at patient's floor/unit and/or counseling patient: Coding Level of Care Code 37747 SUB INP/OBS CARE 2/35MIN Diagnoses Acute dyspnea R06.00 Tachycardia R00.0 Acute bronchitis J20.9 Bronchitis organism: unspecified organism GERD (gastroesophageal reflux disease) K21.9 Interstitial lung disease J84.9 Hypertension I10 Diabetes E11.9 Restless leg syndrome G25.81 (3) Acute bronchitis Bronchitis organism: unspecified organism Qualified Code(s): J20.9 - Acute bronchitis, unspecified
[2022-10-28] MEDS: guaiFENesin 600 MG TABCR PO PRN (23:02)
[2022-10-29] MEDS: LEVALBUTEROL HCL 0.63 MG/3 ML NEB NEB SCH ×4 (00:07→12:44)
[2022-10-29] MEDS: IPRATROPIUM BROMIDE NEB SOLN 0.02% 2.5 ML VIAL INH SCH ×4 (00:07→12:43)
[2022-10-29] MEDS: CEFEPIME 2,000 MG in SYRINGE 0 ML IV SCH ×2 (05:05→11:33)
[2022-10-29 05:53] LABS: Hemoglobin 12.1 g/dl (12.0-16.0); Mean Corpuscular Hemoglobin 29.1 pg (25.0-34.0); Mean Corpuscular Hgb Conc 33.6 g/dL (32.0-36.0); Mean Corpuscular Volume 86.5 fL (80.0-100.0); Mean Platelet Volume 10.7 fL (9.4-12.4); Platelet Count 243 K/uL (130-400); RDW Coefficient of Variation 13.1 % (11.5-14.5); RDW Standard Deviation 41.2 fL (36.4-46.3); Red Blood Count 4.16 M/uL (4.20-5.40); White Blood Count 9.36 K/ul (4.8-10.8)
[2022-10-29 06:47] LABS: Calcium 8.9 mg/dl (8.5-10.1)
[2022-10-29 07:15] LABS: BUN Creatinine Ratio 40.3 (10-20); Creatinine Clr Calc Pharmacy 79.5 ml/min; Est GFR (African American) 99.3 ml/min; Est GFR (Non-African American) 85.7 ml/min
[2022-10-29] MEDS: PANTOprazole 40 MG TAB PO SCH (08:01)
[2022-10-29] MEDS: predniSONE 20 MG TAB PO SCH (08:02)
[2022-10-29] MEDS: FLUTICASONE FUROATE 200MCG 14 PUFFS/INHALER INH SCH (08:02)
[2022-10-29] MEDS: UMECLIDINIUM/VILANTEROL 62.5/25MCG 7 PUFFS/INHALER INH SCH (08:02)
[2022-10-29] MEDS: FUROSEMIDE 40 MG TAB PO SCH (08:03)
[2022-10-29] MEDS: DOCUSATE SODIUM 100 MG CAP PO SCH (08:03)
[2022-10-29] MEDS: ASPIRIN 81 MG ECTAB PO SCH (08:03)
[2022-10-29] MEDS: DICLOFENAC SOD 1% GEL 100 GM TUBE EXT SCH ×2 (08:03→11:33)
[2022-10-29] MEDS: ATORVASTATIN 40 MG TAB PO SCH (08:03)
[2022-10-29] MEDS: POLYETHYLENE (MIRALAX) 17 GM PACK PO SCH (08:04)
[2022-10-29] MEDS: amLODIPine BESYLATE 5 MG TAB PO SCH (08:04)
[2022-10-29] MEDS: INSULIN ASPART PER UNIT SC SCH ×2 (08:16→12:09)
[2022-10-29] MEDS ORDERED: LANTUS PER UNIT CHARGE SQ SCH (09:00)
--- NOTE | 2022-10-29 09:11 | Pharmacy Report ---
Pharmacy Glycemic Short Note 2 - Date of Service October 29, 2022 - Glycemic Short BSG Results (Last 24 hours): 10/28/22 10/28/22 10/28/22 11:26 16:21 20:35 Glucose POC Glucose 230 H 281 H 132 H 10/29/22 10/29/22 05:24 07:27 Glucose 313 H* POC Glucose 266 H OUTPATIENT ANTIDIABETIC REGIMEN: * Metformin 1 g PO BIDM * Glimepiride 4 mg PO daily HbA1c: 8% (09/15/22) ASSESSMENT: 10/29/22: * BSGs yesterday were 341-938-300-132 mg/dl. Patient received total 101 units of insulin; 36 units basal and 65 units bolus. * Fasting BSG today was 266 mg/dl. Prednisone 20 mg BID continues. * Basal dose increased to 25 units BID today to provide 50% of total insulin required from yesterday while oral steroid continues. * Will plan to decrease basal dose when Prednisone dose is either decreased or discontinued. * Pre-lunch BSG = 136 mg/dl, so Novolog carb ratio loosened with lunch today. 10/28/22: * BSGs remained elevated throughout the day yesterday w/ fasting BSG of 262 mg/dL this morning * Received 65 units of insulin (30 units of basal and 35 units of prandial/correctional bolus) * Will increase basal insulin today and tighten Novolog parameters * Continues on prednisone 20 mg PO BID 10/27/22: * WR is a 57 year old female who presents with acute dyspnea on exertion * Pertinent PMH includes interstitial lung disease, HTN, sinus tachycardia, and T2DM * Received 125 mg IV Solu-medrol yesterday followed by prednisone 20 mg PO BID ongoing starting this morning * Pharmacy consulted at lunchtime today due to hyperglycemia * At time of consult, will give increased Lantus dose to equal ~weight-based stress of 2.5 dosing * Uncontrolled T2DM on oral medications (HbA1c: 8%) PLAN FOR INPATIENT GLYCEMIC CONTROL: * Hold outpatient oral diabetes medications * Basal insulin: increased * Lantus 25 units SC BID * Bolus insulin: loosened CR * NovoLog per scale ACHS or Q6hrs while NPO * Goal Range: Low 110 mg/dL - High 140 mg/dL * Correction Factor: 15 mg/dL/unit * Nutritional / Prandial insulin per carb ratio of 1 unit per 7 grams CHO consumed
[2022-10-29] MEDS: GABAPENTIN 300 MG CAP PO SCH (11:32)
--- NOTE | 2022-10-30 16:08 | Discharge Summary ---
Date of Service October 29, 2022 Admission HPI Per Admitting Provider Pippa Schmitt is a 57-year-old female with history of restrictive lung disease secondary to pulmonary fibrosis from H1 N1 influenza infection in 2008 with traction bronchiectasis on home oxygen 2 to 3 L, diabetes, hypertension, GERD presenting with shortness of breath and sustained tachycardia. Ms. Schmitt has been having cough and some shortness of breath ongoing for the last several days. She was seen in the ER on 10/24/2022 was found to be stable on her normal 3 L of supplemental oxygen. She was treated with a DuoNeb and Solu-Medrol with clinical improvement and was discharged home in stable condition with prescription for prednisone 60 mg taper.. Patient is presently living in a homeless [facility]" as she awaits alone to come through so she can get more stable lodging. Her possessi ons are in storage for the time being including her nebulizer machine. Today she was dropped off at the storage to look for her nebulizer machine. She reports that she was walking up a hill and became very short of breath and tachycardic with a heart rate of 160 bpm and oxygen saturation of 78%. She did not have her portable oxygen on her. She says that her machine gets unplugged at the fdc and is never charged. Patient reports that she continues to cough. The cough is recently become productive with green phlegm. She coughed through the night last night. She also reports chest tightness and occasional dizziness. Denies fevers, chills, sweats. No abdominal pain, nausea, vomiting, diarrhea or constipation. No additional complaints at this time Patient with remote history of alcohol abuse. She does admit to drinking 1 can of beer today. In the ER she is afebrile, persistently tachycardic with rates of 120s to 130s, sinus on EKG and monitor. Blood pressure is mildly elevated currently 150/100. She is tachypneic at present 26 breaths/min and saturating well on room air. ER course: Gabapentin 300 mg Singular 10 mg Protonix 40 mg Requip 1 mg Insulin 10 units Normal saline x1500 mL Solu-Medrol 125 mg IV (patient by report also received Solu-Medrol 125 mg by EMS for total of 250 mg today) Albuterol 3 mL neb Principal Diagnosis COPD exacerbation Discharge Exam General: patient resting comfortably, NAD, non-toxic in appearance, AA&O x 4 Skin: warm, dry, intact, no rashes or lesions HEENT: NC/AT, PERRL, EOMI, anicteric sclera, conjunctiva without injection, external ear normal to inspection and nontender, nares patent, moist mucus membranes, dentition intact, no oropharyngeal lesions, neck supple, trachea midline, no LAD, no thyromegaly, no JVD Heart: +S1/S2, regular, tachycardic, no m/r/g Lungs: equal air entry bilaterally, crackles in bilateral bases, no rhonchi/wheezes Abd: +BS, soft, NT/ND, no masses/organomegaly/ascites Ext: warm, 2+ pulses in UE/LE bilaterally, no clubbing/cyanosis or edema Neuro: nonfocal, patient AA&O x 4, speech intact, no facial droop, moving all extremities on command with equal strength 5/5, no tremors Discharge Data Allergies Allergy/AdvReac Type Severity Reaction Status Date / Time house dust Allergy Intermediate Difficulty Verified 10/26/22 20:01 Breathing mold Allergy Intermediate ASTHMA Verified 10/26/22 20:01 ATTACK Consultations 10/26/22 22:53 ED Decision to Admit Stat Ordered Studies 10/26/22 19:44 CT for pulmonary embolism PE [CT angio chest PE protocol] Stat Hospital Course (1) Acute dyspnea: 57yo female with chronic hypoxemic respiratory failure on supplemental O2 at baseline, restrictive lung disease secondary to pulmonary fibrosis from prior H1N1 infection in 2008 presenting with acute dyspnea following exertion. Patient walked up a hill and was not wearing her O2. Remained short of breath. Adequate oxygenation now on 2L NC. CTA without PE or PNA. -Admit to medical with telemetry -Continue supplemental O2 - goal saturation 88-92% Will treat as a COPD exacerbation given increase sputum production, will place on cefepime, and monitor. Patient appears to be doing better this afternoon COPD exacerbation placed on cefepime, transition to cefuroxime at discharge. (2) Tachycardia: Ongoing tachycardia - sinus. Adequate O2 now, no pain. Patient did drink one beer today - confirmed this with her x 2. -Telemetry monitoring -Consider Echo -Monitor for possible withdrawal -will order additional lorazepam and monitor her heart rate (3) Acute bronchitis: No PNA on imaging -Continue Guaifenesin -Continue Prednisone (4) GERD (gastroesophageal reflux disease): -Continue Protonix 40mg BID (5) Interstitial lung disease: -Ipratropium with Levalbuterol nebs q 6 hours -Continue Umeclidinium/Vilanterol -Continue Singulair -Continue Prednisone 20mg po BID - patient received 250mg IV Solumedrol today -Hypertonic saline nebs BID -Flutter (6) Hypertension: Chronic. Blood pressure elevated in the ER, now improved -Continue Amlodipine 10mg po daily (7) Diabetes: -Lantus 10u BID -ISS (8) Restless leg syndrome: -Continue Ropinirole F/E/N - CC diet as tolerated, Mg x 1gm, K repletion, PO as tolerated Code - Full Dispo - Medical with telemetry Total Time Total Time Spent Total Time Spent (In Minutes): 32 Discharge Plan Discharge Items Patient Disposition: Home - Self-Care Reason For Visit: TACHYCARDIA, SOB Discharge Diagnosis: tachycardia, SOB Activity: Resume your previous activity Non-emergency contact: Primary Care Provider Call non-emergency contact if: you have any medication questions Follow-up/Referrals: Tyrell Mancini MD [Primary Care Provider] - Diet: Carb Count or DM1 Addtl Attending Provider Instructions: You were seen for a COPD flair up. Will recommend you to continue on your antibiotics until the bottle is complete. You can start them tonight. Recommend followup wt PCP in 1-2 days Pending Studies at Discharge: No Stand-Alone Forms: [employer], Smoking Cessation Medications and DC Order Prescriptions: New gabapentin 600 mg Tablet 600 mg PO HS Qty: 0 0RF gabapentin 300 mg Capsule 300 mg PO QDL Qty: 0 0RF cefuroxime axetil 500 mg tablet 500 mg PO BID Qty: 9 0RF Rx Instructions: Take first dose tonight. Continued (DME) Oxygen Home Liters Per Minute See Rx Instructions .MEDSUPPLY Qty: 1 0RF Rx Instructions: Please get patient set up for oxygen, concentrator, poc, ok to do necessary testing, necessary supplies, lifetime need. atorvastatin 80 mg tablet 80 mg PO QAM Qty: 90 3RF Motegrity 2 mg tablet 2 mg PO DAILY Qty: 90 3RF magnesium oxide 400 mg (241.3 mg magnesium) tablet 400 mg PO BID Qty: 60 5RF amlodipine 5 mg tablet 10 mg PO DAILY Qty: 60 5RF pantoprazole 40 mg tablet,delayed release (DR/EC) 40 mg PO BID Qty: 180 3RF diclofenac sodium 1 % gel 2 g TOP QID PRN (Reason: Pain) Qty: 100 3RF aspirin 81 mg tablet,delayed release (DR/EC) 81 mg PO DAILY Qty: 90 1RF Rybelsus 7 mg tablet 7 mg PO DAILY Qty: 30 5RF Rx Instructions: SUSPENDED AT PRESENT--NO PHARMACY HAS IN STOCK metformin 500 mg tablet extended release 24 hr 1,000 mg PO BID Qty: 180 3RF montelukast [Singulair] 10 mg tablet 10 mg PO HS Qty: 90 1RF cyclobenzaprine 10 mg tablet 10 mg PO TID PRN (Reason: muscle spasm) Qty: 90 1RF naproxen 500 mg tablet 500 mg PO BID PRN (Reason: pain) Qty: 180 3RF ropinirole 1 mg tablet 1 mg PO HS Qty: 30 11RF Centrum Complete 18-400 mg-mcg tablet 1 tab PO QAM (DME) nebulizers Misc See Rx Instructions miscellaneous .MEDSUPPLY Qty: 1 0RF Rx Instructions: Use 4 x a day or as directed. Lifetime need. ipratropium-albuterol 0.5 mg-3 mg(2.5 mg base)/3 mL solution for nebulization 3 ml inhalation Q4H PRN (Reason: wheezing) Qty: 180 5RF glimepiride 4 mg tablet 4 mg PO DAILY Qty: 30 2RF sodium chloride 7 % solution for nebulization 4 ml inhalation BID Qty: 240 5RF albuterol sulfate 90 mcg/actuation HFA aerosol inhaler 2 puff INHALATION 6XD PRN (Reason: Wheezing) Qty: 8.5 3RF fluticasone propionate [Flonase Allergy Relief] 50 mcg/actuation spray,suspension 1 spray INTNAS QAM PRN (Reason: Nasal Congestion) Qty: 16 11RF Rx Instructions: administer into each nostril furosemide [Lasix] 40 mg tablet 40 mg PO DAILY Qty: 3 0RF melatonin 10 mg Tablet 10 mg PO HS PRN (Reason: Sleep) polyethylene glycol 3350 17 gram/dose powder 17 g PO QAM Trelegy Ellipta 200-62.5-25 mcg blister with device 1 inh inhalation QAM diphenhydramine HCl [Benadryl] 25 mg Capsule 25 mg PO HS PRN (Reason: Allergy Symptoms) calcium polycarbophil [Fiber (calcium polycarbophil)] 625 mg Tablet 3,129 mg PO QAM docusate sodium [Colace] 100 mg Capsule 300 mg PO BID cinnamon bark [Cinnamon] 500 mg Capsule 500 mg PO QAM Probiotic 15 billion cell Capsule 30 cap PO QAM Vitamin C And Zinc Tablet 1 tab PO QAM (DME) lancing device with lancets [OneMentorDOTMeuch Delica Lanc Device] Kit See Rx Instructions .Route Qty: 1 0RF Rx Instructions: As directed - check blood sugars twice daily. (DME) blood-glucose meter [OneTouch Verio Meter] Misc See Rx Instructions .ROUTE .MEDSUPPLY Qty: 1 0RF Rx Instructions: test 2 times daily (DME) lancets [OneTouch Delica Plus Lancet] 30 gauge misc See Rx Instructions .ROUTE .MEDSUPPLY Qty: 100 0RF Rx Instructions: As directed - check sugars twice daily guaifenesin [Mucinex] 600 mg tablet extended release 12hr 600 mg PO Q12H PRN (Reason: Congestion) Discontinued gabapentin 300 mg capsule 300 mg PO TID Qty: 270 3RF No Action (DME) OneTouch Verio test strips Strip See Rx Instructions .Route Qty: 100 3RF Rx Instructions: test daily (DME) lancets [OneTouch Delica Lancets] 33 gauge misc See Rx Instructions .Route Qty: 100 3RF Rx Instructions: test daily hydrocodone-acetaminophen 5-325 mg tablet 2 tab PO Q6H PRN (Reason: pain) Qty: 120 0RF Rx Instructions: Must last 15 days ondansetron 4 mg tablet,disintegrating 4 mg PO Q8H PRN (Reason: nausea and vomiting) Qty: 30 5RF Discharge Orders: Discharge Order (Routine); Ordered 10/29/22 Ordered By: Tereso Hinojosa Admission Data Admit Date/Time: 10/26/22 23:17 Attending Provider: Tereso Hinojosa Admit Provider: Gilma Crump Primary Care Provider: Tyrell Mancini Other Providers: Gilma Crump Other Interventions: Discharge Summary Assessment (RN) Last Done: 10/29/22 16:15 Coding Level of Care Code HOSP INP/OBS DISCH >30 MIN Diagnoses Acute dyspnea R06.00 Tachycardia R00.0 Acute bronchitis J20.9 Bronchitis organism: unspecified organism GERD (gastroesophageal reflux disease) K21.9 Interstitial lung disease J84.9 Hypertension I10 Diabetes E11.9 Restless leg syndrome G25.81
== END 2022-10-29 16:45 | disposition home or self-care (01) ==
LOC: ED 18:54 → 2W 23:17 → SUATTDRO 23:17 → INTOOBSV 23:17 → 2W 10-27 00:23

== ENCOUNTER 2022-11-18 17:12 | Observation (INO) ==
[2022-11-18] MEDS ORDERED: OLANZapine 10 MG/2.1 ML SDV IM STA (17:29)
[2022-11-18] MEDS ORDERED: LORazepam 2 MG/1 ML VIAL IV STA ×3 (17:30→20:04)
[2022-11-18] MEDS ORDERED: OLANZapine 10 MG/2.1 ML SDV IM ONE (17:30)
[2022-11-18] MEDS ORDERED: SODIUM CHLORIDE 0.9% 1000ML 1,000 ML IV SCH (17:30)
--- NOTE | 2022-11-18 17:30 | Emergency Department Note ---
Impression & Plan Agitation, AMS (altered mental status), Hypoxia, Alcohol intoxication, COVID-19 ED Provider Note INFORMANT: EMS ED PROVIDER(S): Juan J Escalante DO CHIEF COMPLAINT: alteration mental status PLAN: Disposition: admission Outpatient prescription management: none Discussion with: I spoke with the hospitalist, who will see the patient for admission/observation and further evaluation and consultation. MEDICAL DECISION MAKING: This is a 57-year-old female who presents for the fifth time in the last 30 days. She was found on the ground outside of (out of the cold) half-way. The patient is unable to provide any history. Per EMS, the patient was not cooperative and somewhat agitated. Prehospital blood sugar was normal. The patient does have a history of alcohol abuse per the patient's previous records. She also has some mental health history as well. The patient provides no additional information. She did answer some basic questions and shook her head no to drugs and alcohol. She shook her head yes to taking medications routinely. She otherwise appears to be concerned about the IV that was being placed in her right arm in the ED and seem to be distracted by this. She would not carry on any conversation or answer any questions using words. The patient does have a history of type 2 diabetes. Her vital signs are stable. Her physical exam did not reveal any obvious trauma. She is awake but somewhat agitated and not cooperating. In order to do the IV, several staff members had to hold the patient down to establish IV access and draw blood. The patient's oxygen saturations were noted to be 82% on room air. 87% on 2 L which is what the patient typically uses for her home COPD. She is requiring 4 L of oxygen for maintenance of saturations above 90%. The patient's COVID test was positive. Alcohol was 335 suggesting intoxication. His CBC did not show leukocytosis or anemia. Chemistry panel was unremarkable for electrolyte abnor mality. She does have a chronic transaminitis. Tylenol level was not toxic and talk screen was otherwise negative. Triage Nursing notes reviewed. Vital Signs: reviewed Prior /Outside records reviewed: Telephone note from 11/04/2022 from case management showed that the patient was in the ER on the for intoxication and agitation. She was shouting and agitated and combative at the [facility] and at that time. She was treated here in the emergency department with IV Ativan and IM Zyprexa. She does live in the homeless half-way. Differential diagnosis: Alcohol intoxication, drug overdose, intracranial hemorrhage, COPD exacerbati on, hypoxia, hypoglycemia, CVA, other. Diagnostics, as interpreted by me: 12 lead ECG: Sinus Tachycardia 104. No ST elevation. No PVC's. Normal QTc. Cardiac Monitoring ordered: Sinus tach around 1 10-1 20 Medical decision rules: none Imaging studies: CT scan of the brain: No acute disease. Chest x-ray: Bilateral interstitial disease. Compared to 10/30, similar. No obvious infiltrate. Procedures: Physical and chemical restraints Critical care: I have personally spent 30 minutes of critical care time in the direct management of this patient. This includes bedside care, interpretation of diagnostic studies, and testing, discussion with consultants, patient, and family members, and other required patient management activities. This 30 minutes is in excess of all separately billable procedures. HPI: See MDM above. PAST MEDICAL HISTORY: See Below PAST SURGICAL HISTORY: See Below SOCIAL HISTORY: See Below HOME MEDICATIONS: See Below ALLERGIES: See Below VITALS: See Below PHYSICAL EXAMINATION: See MDM for positive findings otherwise unremarkable. CONSTITUTIONAL/VITAL SIGNS: Reviewed GENERAL:done as appropriate INTEGUMENTARY: done as appropriate HEAD: done as appropriate EYES: done as appropriate RESPIRATORY: done as appropriate CARDIOVASCULAR:done as appropriate GI/ABDOMEN:done as appropriate EXTREMITIES: done as appropriate NEUROLOGICAL: done as appropriate PSYCHIATRIC:done as appropriate MUSCULOSKELETAL:done as appropriate TRIAGE NURSING DOCUMENTATION REVIEWED. Past Med/Surg History Medical History Acute pancreatitis Admitted April 2021- had MRCP at that time- recommended EUS six weeks from April admission Aggressive behavior AMS (altered mental status) Anxiety Asthma with exacerbation last used inhaler yesterday Candidiasis of mouth and esophagus Chronic constipation COPD (chronic obstructive pulmonary disease) Depression Diabetes type 2, uncontrolled Hgb A1C 04/25/21 was 7.0 Dysphagia DIFFICULTY SWALLOWING MEDS Foot pain rt tendon "problems" GERD (gastroesophageal reflux disease) Hiatal hernia History of ARDS 2009 (ADMITTED TO [facility]) (SECONDARY TO H1N1 INFECTION)- CONTINUES ON SUPPLEMENTAL OXYGEN History of congestive heart failure 2019 History of ETOH abuse last drink 05-20-20 History of Guillain-Westford syndrome DX'D 2009 History of pulmonary embolism 2008 per PCP records - no AC HTN (hypertension) Hypokalemia Interstitial lung disease Follows with pulm Lumbar degenerative disc disease Lumbar radiculopathy Mood disorder On home oxygen therapy 2-3L O2 WITH EXERTION AND AT HS Post traumatic stress disorder Pulmonary HTN Restless leg syndrome Vaginitis Surgical History History of anesthesia reaction "I HAVE A HARD TIME BREATHING AFTER ANESTHESIA" History of colonoscopy 2019 History of esophagogastroduodenoscopy (EGD) History of laparoscopic cholecystectomy History of radiofrequency ablation procedure for cardiac arrhythmia 2006-NO F/U CARDIOLOGY History of sinus surgery History of tracheostomy resolved History of tracheostomy Hx H1N1 in 2008 with prolonged intubation and mechanical ventilation for 8 months per patient 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 Family History Grandmother (Paternal) Family history of diabetes mellitus Mother , age 81 of uncertain causes No problems noted. Father , early 50s of lymphoma Lymphoma Other No family history of adverse response to anesthesia No significant family history Social History Smoking Status: Unknown if ever smoked Second Hand Exposure: No; Hx Alcohol Use: Yes Alcohol type: beer Hx Substance Use: Yes Preferred Language: Citizen Of [place] Communication Ability: Effective Visual Impairment: No Limitations Heating Element Builder Required: No Beliefs That Will Affect Care: Confucianist Confucianist Beliefs: only wants to have a blood transfusion as a last resort marital status: Single Current Living Situation: Alone and Homeless Current Living Situation Comment: pt is living at [address] currently homeless she states current occupational status: disabled 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 How many Children do You have: 0 Feels Safe at Home: Yes Gender Identity: Female Assistive Devices: Oxygen - at Night Allergies Allergies Allergy/AdvReac Type Severity Reaction Status Date / Time house dust Allergy Intermediate Difficulty Verified 11/18/22 18:43 Breathing mold Allergy Intermediate ASTHMA Verified 11/18/22 18:43 ATTACK Home Meds Home Medications Medication Instructions Recorded Confirmed melatonin 10 mg tablet 10 mg PO HS PRN Sleep 07/05/18 11/18/22 multivitamin-ferrous 1 tab PO QAM 09/21/19 11/18/22 fumarate-folic acid 18 mg-400 mcg tablet (Centrum Complete) polyethylene glycol 3350 17 17 g PO QAM 06/11/20 11/18/22 gram/dose oral powder fluticasone fur. 200 mcg-umeclid 1 inh inhalation QAM interstitial 06/21/21 11/18/22 62.5 mcg-vilant 25 mcg lung disease inhalat.powder (Trelegy Ellipta) Lactobacillus acidophilus and 30 cap PO QAM 08/04/21 11/18/22 rhamnosus 15 billion cell capsule (Probiotic) calcium polycarbophil 625 mg 3,129 mg PO QAM 08/04/21 11/18/22 tablet (Fiber (calcium polycarbophil)) cinnamon bark 500 mg capsule 500 mg PO QAM 08/04/21 11/18/22 (Cinnamon) docusate sodium 100 mg capsule 300 mg PO BID 08/04/21 11/18/22 (Colace) guaifenesin 600 mg tablet, 600 mg PO Q12H PRN Congestion 10/04/22 11/18/22 extended release 12 hr (Mucinex) semaglutide 3 mg tablet (Rybelsus) 3 mg PO DAILY 11/18/22 11/18/22 semaglutide 7 mg tablet (Rybelsus) 7 mg PO UD 11/18/22 11/18/22 Previous Rx's Medication Instructions Recorded sodium chloride 7 % for 4 ml inhalation BID #240 mL 08/28/20 nebulization Oxygen Home #1 ea 02/04/21 nebulizers #1 ea 05/06/21 atorvastatin 80 mg tablet 80 mg PO QAM #90 tabs 12/19/21 amlodipine 5 mg tablet 10 mg PO DAILY #60 tabs 04/25/22 magnesium oxide 400 mg (241.3 mg 400 mg PO BID #60 tabs 04/25/22 magnesium) tablet diclofenac sodium 1 % topical gel 2 g topical QID PRN Pain #100 grams 05/16/22 aspirin 81 mg tablet,delayed 81 mg PO DAILY #90 tabs 06/17/22 release albuterol sulfate 90 mcg/actuation 2 puff inhalation 6XD PRN Wheezing 07/22/22 aerosol inhaler #8.5 grams fluticasone propionate 50 1 spray intranasal QAM PRN Nasal 07/22/22 mcg/actuation nasal Congestion #16 grams spray,suspension (Flonase Allergy Relief) blood-[facility] Verio Meter) lancets 30 gauge ([facility] #100 ea 09/19/22 Plus Lancet) lancing device with lancets kit #1 ea 09/19/22 (Brand.net Lancing Device kit) metformin 500 mg tablet,extended 1,000 mg PO BID #180 tabs 10/02/22 release 24 hr glimepiride 4 mg tablet 4 mg PO DAILY #30 tabs 10/04/22 furosemide 40 mg tablet (Lasix) 40 mg PO DAILY #3 tabs 10/20/22 montelukast 10 mg tablet 10 mg PO HS #90 tabs 10/20/22 (Singulair) naproxen 500 mg tablet 500 mg PO BID PRN pain #180 tabs 10/27/22 ropinirole 1 mg tablet 1 mg PO HS #30 tabs 10/27/22 gabapentin 300 mg capsule 300 mg PO QDL #0 caps 10/29/22 gabapentin 600 mg tablet 600 mg PO HS #0 tabs 10/29/22 blood sugar diagnostic ([facility] e[facility] 10/31/22 Verio test strips) lancets 33 gauge ([facility] #100 ea 10/31/22 Lancets) ondansetron 4 mg disintegrating 4 mg PO Q8H PRN nausea and 11/03/22 tablet vomiting #30 tabs ipratropium 0.5 mg-albuterol 3 mg 3 ml inhalation Q4H PRN wheezing 11/07/22 (2.5 mg base)/3 mL nebulization #180 mL soln pantoprazole 40 mg tablet,delayed 40 mg PO BID #180 tabs 11/10/22 release cyclobenzaprine 10 mg tablet 10 mg PO TID PRN muscle spasm #90 11/17/22 tabs hydrocodone 5 mg-acetaminophen 325 2 tab PO Q6H PRN pain #120 tabs 11/17/22 mg tablet Results & Data (ED) Vital Signs Vital Signs - 24 hr 11/18/22 17:39 11/18/22 17:00 11/18/22 17:05 Temperature 36.4 C L Temperature Source Temporal Artery Scan Pulse Rate 105 H 103 H Pulse Rate from SpO2 Sensor Pulse Rhythm Regular Respiratory Rate 16 Respiratory Effort / Characteristics Non-Labored Spontaneous Respiratory Depth Normal Blood Pressure 133/82 Blood Pressure Mean 99 Pulse Oximetry 82 L 98 Oxygen Delivery Method Room Air Nasal Cannula Oxygen Flow Rate 4 Sepsis Recent Fever Within 48 Hours No Sepsis New/Unexplained Change in Mental Status No Sepsis Action Taken by Nursing No Action Required 11/18/22 17:18 11/18/22 17:30 11/18/22 17:33 Temperature Temperature Source Pulse Rate 105 H 105 H Pulse Rate from SpO2 Sensor 97 H 104 H Pulse Rhythm Respiratory Rate 20 19 Respiratory Effort / Characteristics Respiratory Depth Blood Pressure 125/79 Blood Pressure Mean 94 Pulse Oximetry 87 L 89 L Oxygen Delivery Method Nasal Cannula Nasal Cannula Oxygen Flow Rate 2 2 Sepsis Recent Fever Within 48 Hours Sepsis New/Unexplained Change in Mental Status Sepsis Action Taken by Nursing 11/18/22 17:33 11/18/22 17:45 11/18/22 17:46 Temperature Temperature Source Pulse Rate 95 H 99 H 92 H Pulse Rate from SpO2 Sensor 94 H 95 H 92 H Pulse Rhythm Respiratory Rate 23 30 H 28 H Respiratory Effort / Characteristics Respiratory Depth Blood Pressure Blood Pressure Mean Pulse Oximetry 92 97 95 Oxygen Delivery Method Nasal Cannula Oxygen Flow Rate 4 Sepsis Recent Fever Within 48 Hours Sepsis New/Unexplained Change in Mental Status Sepsis Action Taken by Nursing 11/18/22 17:46 11/18/22 18:00 11/18/22 18:00 Temperature Temperature Source Pulse Rate 94 H Pulse Rate from SpO2 Sensor 95 H Pulse Rhythm Respiratory Rate 29 H Respiratory Effort / Characteristics Respiratory Depth Blood Pressure 133/82 127/72 Blood Pressure Mean 99 90 Pulse Oximetry 97 Oxygen Delivery Method Oxygen Flow Rate Sepsis Recent Fever Within 48 Hours Sepsis New/Unexplained Change in Mental Status Sepsis Action Taken by Nursing 11/18/22 18:15 11/18/22 18:30 11/18/22 18:30 Temperature Temperature Source Pulse Rate 92 H 92 H Pulse Rate from SpO2 Sensor 91 H 92 H Pulse Rhythm Respiratory Rate 18 16 Respiratory Effort / Characteristics Respiratory Depth Blood Pressure 121/73 Blood Pressure Mean 89 Pulse Oximetry 98 100 Oxygen Delivery Method Oxygen Flow Rate Sepsis Recent Fever Within 48 Hours Sepsis New/Unexplained Change in Mental Status Sepsis Action Taken by Nursing 11/18/22 18:45 11/18/22 18:45 11/18/22 19:09 Temperature Temperature Source Pulse Rate 102 H 102 H Pulse Rate from SpO2 Sensor 102 H 102 H Pulse Rhythm Respiratory Rate 17 16 Respiratory Effort / Characteristics Respiratory Depth Blood Pressure 106/81 108/85 Blood Pressure Mean 89 92 Pulse Oximetry 94 96 Oxygen Delivery Method Nasal Cannula Oxygen Flow Rate 3 Sepsis Recent Fever Within 48 Hours Sepsis New/Unexplained Change in Mental Status Sepsis Action Taken by Nursing 11/18/22 19:30 Temperature Temperature Source Pulse Rate 92 H Pulse Rate from SpO2 Sensor 92 H Pulse Rhythm Respiratory Rate 16 Respiratory Effort / Characteristics Respiratory Depth Blood Pressure 111/72 Blood Pressure Mean 85 Pulse Oximetry 99 Oxygen Delivery Method Nasal Cannula Oxygen Flow Rate 3 Sepsis Recent Fever Within 48 Hours Sepsis New/Unexplained Change in Mental Status Sepsis Action Taken by Nursing Laboratory Data 11/18/22 17:35 11/18/22 17:35 Lab Results 11/18/22 11/18/22 11/18/22 Range/Units 17:35 17:35 17:35 WBC (4.8-10.8) K/ul RBC (4.20-5.40) M/uL Hgb (12.0-16.0) g/dl Hct (37.0-47.0) % MCV (80.0-100.0) fL MCH (25.0-34.0) pg MCHC (32.0-36.0) g/dL RDW Std Deviation (36.4-46.3) fL RDW Coeff of Joyce (11.5-14.5) % Plt Count (130-400) K/uL MPV (9.4-12.4) fL Neutrophils % (Manual) % Lymphocytes % (Manual) % Monocytes % (Manual) % Neutrophils # (Manual) (1.40-6.50) K/uL Total Absolute Neuts (1.4-6.5) K/uL Lymphocytes # (Manual) (1.2-3.4) K/uL Total Abs Lymphocytes (1.2-3.4) K/uL Monocytes # (Manual) (0.11-0.59) K/uL Large Granular Lymphs % # Lrg Granular Lymphs K/uL RBC Morphology Sodium 140 (136-145) mmol/L Potassium 3.4 L (3.5-5.1) mmol/L Chloride 106 (98-107) mmol/L Carbon Dioxide 20 L (21-32) mmol/L Anion Gap 14 H (3-11) BUN 9 (6-23) mg/dl Creatinine 0.60 (0.6-1.2) mg/dl Est Cr Clr Drug Dosing Not Reportable Est GFR ( Amer) 117.3 ml/min Est GFR (Non-Af Amer) 101.2 ml/min BUN/Creatinine Ratio 15.0 (10-20) Glucose 165 H (70-99(Fasting)) mg/dl Calcium 9.6 (8.5-10.1) mg/dl Magnesium 2.5 H (1.7-2.4) mg/dl Total Bilirubin 0.3 (0.2-1.0) mg/dl AST 95 H (13-39) U/L ALT 90 H (7-52) U/L Alkaline Phosphatase 122 H (34-104) U/L Total Creatine Kinase 47 (26-192) U/L Troponin I High Sens 3.4 (0-14) pg/ml Total Protein 8.4 H (6.0-8.3) gm/dl Albumin 4.8 (3.4-5.0) gm/dl Globulin 3.6 (2.5-4.0) gm/dl Albumin/Globulin Ratio 1.3 (0.9-2) Lipase 18 (11-82) U/L HCG, Qual (Negative) Urine Color Urine Appearance (Clear) Urine pH (4.5-7.5) Ur Specific [place] (1.000-1.030) Urine Protein (Negative) Urine Glucose (UA) (Negative) Urine Ketones (Negative) Urine Blood (Negative) Urine Nitrite (Negative) Urine Bilirubin (Negative) Urine Urobilinogen (Negative) Ur Leukocyte Esterase (Negative) Salicylates < 3.0 L (3.0-30) mg/dl Urine Opiates Screen (Neg) Ur Methadone, Qual (Neg) Acetaminophen 3 L (10-30) ug/ml Urine Barbiturates (Neg) Ur Phencyclidine (PCP) (Neg) U Amphetamin/Meth Scrn (Neg) MDMA (Ecstasy) Screen (Neg) U Benzodiazepines Scrn (Neg) Ur Cocaine Metabolite (Neg) U Marijuana (THC) Screen (Neg) Ethyl Alcohol mg/dL 335.8 H (<10.0) mg/dl SARS-CoV-2, RNA, NAAT (NEGATIVE) 11/18/22 11/18/22 11/18/22 Range/Units 17:35 17:35 17:35 WBC 7.78 (4.8-10.8) K/ul RBC 5.07 (4.20-5.40) M/uL Hgb 14.9 (12.0-16.0) g/dl Hct 43.1 (37.0-47.0) % MCV 85.0 (80.0-100.0) fL MCH 29.4 (25.0-34.0) pg MCHC 34.6 (32.0-36.0) g/dL RDW Std Deviation 42.5 (36.4-46.3) fL RDW Coeff of Joyce 13.7 (11.5-14.5) % Plt Count 289 (130-400) K/uL MPV 10.1 (9.4-12.4) fL Neutrophils % (Manual) 31 % Lymphocytes % (Manual) 40 % Monocytes % (Manual) 9 % Neutrophils # (Manual) 2.41 (1.40-6.50) K/uL Total Absolute Neuts 2.41 (1.4-6.5) K/uL Lymphocytes # (Manual) 3.11 (1.2-3.4) K/uL Total Abs Lymphocytes 4.75 H (1.2-3.4) K/uL Monocytes # (Manual) 0.70 H (0.11-0.59) K/uL Large Granular Lymphs 21 % # Lrg Granular Lymphs 1.63 K/uL RBC Morphology Unremarkable Sodium (136-145) mmol/L Potassium (3.5-5.1) mmol/L Chloride (98-107) mmol/L Carbon Dioxide (21-32) mmol/L Anion Gap (3-11) BUN (6-23) mg/dl Creatinine (0.6-1.2) mg/dl Est Cr Clr Drug Dosing Est GFR ( Amer) ml/min Est GFR (Non-Af Amer) ml/min BUN/Creatinine Ratio (10-20) Glucose (70-99(Fasting)) mg/dl Calcium (8.5-10.1) mg/dl Magnesium (1.7-2.4) mg/dl Total Bilirubin (0.2-1.0) mg/dl AST (13-39) U/L ALT (7-52) U/L Alkaline Phosphatase (34-104) U/L Total Creatine Kinase (26-192) U/L Troponin I High Sens (0-14) pg/ml Total Protein (6.0-8.3) gm/dl Albumin (3.4-5.0) gm/dl Globulin (2.5-4.0) gm/dl Albumin/Globulin Ratio (0.9-2) Lipase (11-82) U/L HCG, Qual Negative (Negative) Urine Color Yellow Urine Appearance Clear (Clear) Urine pH 5.0 (4.5-7.5) Ur Specific [place] 1.006 (1.000-1.030) Urine Protein Negative (Negative) Urine Glucose (UA) Trace H (Negative) Urine Ketones Negative (Negative) Urine Blood Negative (Negative) Urine Nitrite Negative (Negative) Urine Bilirubin Negative (Negative) Urine Urobilinogen Negative (Negative) Ur Leukocyte Esterase Negative (Negative) Salicylates (3.0-30) mg/dl Urine Opiates Screen (Neg) Ur Methadone, Qual (Neg) Acetaminophen (10-30) ug/ml Urine Barbiturates (Neg) Ur Phencyclidine (PCP) (Neg) U Amphetamin/Meth Scrn (Neg) MDMA (Ecstasy) Screen (Neg) U Benzodiazepines Scrn (Neg) Ur Cocaine Metabolite (Neg) U Marijuana (THC) Screen (Neg) Ethyl Alcohol mg/dL (<10.0) mg/dl SARS-CoV-2, RNA, NAAT (NEGATIVE) 11/18/22 11/18/22 Range/Units 17:35 17:45 WBC (4.8-10.8) K/ul RBC (4.20-5.40) M/uL Hgb (12.0-16.0) g/dl Hct (37.0-47.0) % MCV (80.0-100.0) fL MCH (25.0-34.0) pg MCHC (32.0-36.0) g/dL RDW Std Deviation (36.4-46.3) fL RDW Coeff of Joyce (11.5-14.5) % Plt Count (130-400) K/uL MPV (9.4-12.4) fL Neutrophils % (Manual) % Lymphocytes % (Manual) % Monocytes % (Manual) % Neutrophils # (Manual) (1.40-6.50) K/uL Total Absolute Neuts (1.4-6.5) K/uL Lymphocytes # (Manual) (1.2-3.4) K/uL Total Abs Lymphocytes (1.2-3.4) K/uL Monocytes # (Manual) (0.11-0.59) K/uL Large Granular Lymphs % # Lrg Granular Lymphs K/uL RBC Morphology Sodium (136-145) mmol/L Potassium (3.5-5.1) mmol/L Chloride (98-107) mmol/L Carbon Dioxide (21-32) mmol/L Anion Gap (3-11) BUN (6-23) mg/dl Creatinine (0.6-1.2) mg/dl Est Cr Clr Drug Dosing Est GFR ( Amer) ml/min Est GFR (Non-Af Amer) ml/min BUN/Creatinine Ratio (10-20) Glucose (70-99(Fasting)) mg/dl Calcium (8.5-10.1) mg/dl Magnesium (1.7-2.4) mg/dl Total Bilirubin (0.2-1.0) mg/dl AST (13-39) U/L ALT (7-52) U/L Alkaline Phosphatase (34-104) U/L Total Creatine Kinase (26-192) U/L Troponin I High Sens (0-14) pg/ml Total Protein (6.0-8.3) gm/dl Albumin (3.4-5.0) gm/dl Globulin (2.5-4.0) gm/dl Albumin/Globulin Ratio (0.9-2) Lipase (11-82) U/L HCG, Qual (Negative) Urine Color Urine Appearance (Clear) Urine pH (4.5-7.5) Ur Specific [place] (1.000-1.030) Urine Protein (Negative) Urine Glucose (UA) (Negative) Urine Ketones (Negative) Urine Blood (Negative) Urine Nitrite (Negative) Urine Bilirubin (Negative) Urine Urobilinogen (Negative) Ur Leukocyte Esterase (Negative) Salicylates (3.0-30) mg/dl Urine Opiates Screen Neg (Neg) Ur Methadone, Qual Neg (Neg) Acetaminophen (10-30) ug/ml Urine Barbiturates Neg (Neg) Ur Phencyclidine (PCP) Neg (Neg) U Amphetamin/Meth Scrn Neg (Neg) MDMA (Ecstasy) Screen Neg (Neg) U Benzodiazepines Scrn Neg (Neg) Ur Cocaine Metabolite Neg (Neg) U Marijuana (THC) Screen Neg (Neg) Ethyl Alcohol mg/dL (<10.0) mg/dl SARS-CoV-2, RNA, NAAT POSITIVE A* (NEGATIVE) Administered Medications Discontinued Medications Haloperidol Lactate (Haloperidol Lactate 5 Mg/Ml 1 Ml Vial) 5 mg IM NOW STA Stop: 11/18/22 19:14 Last Admin: 11/18/22 19:18 Dose: 5 mg Documented By: SEVERINO Sodium Chloride (Nss 1000ml) 1,000 mls @ 999 mls/hr IV .Q1H1M EN Stop: 11/18/22 18:30 Last Admin: 11/18/22 17:43 Dose: 999 mls/hr Documented By: HS Lorazepam (Lorazepam 2 Mg/1 Ml Vial) 1 mg IV NOW STA Stop: 11/18/22 17:31 Last Admin: 11/18/22 17:43 Dose: 1 mg Documented By: HS Lorazepam (Lorazepam 2 Mg/1 Ml Vial) 1 mg IV NOW STA Stop: 11/18/22 18:04 Last Admin: 11/18/22 18:24 Dose: 1 mg Documented By: HS Olanzapine (Olanzapine 10 Mg/2.1 Ml Sdv) 10 mg IM NOW STA Stop: 11/18/22 17:30 Last Admin: 11/18/22 17:33 Dose: 10 mg Documented By: NA Olanzapine (Olanzapine 10 Mg/2.1 Ml Sdv) Confirm Administered Dose 10 mg IM .STK-MED ONE Stop: 11/18/22 17:31 Last Admin: 11/18/22 17:34 Dose: Not Given Documented By: NA Discharge Plan Visit Data Chief Complaint: Altered Mental Status ED Provider: Juan J Escalante Discharge Problem: Agitation, AMS (altered mental status), Hypoxia, Alcohol intoxication, COVID-19 Patient Disposition: Being Evaluated by Hospitalist Forms Stand Alone Forms: [facility] Prescriptions Prescriptions: No Action (DME) Oxygen Home Liters Per Minute See Rx Instructions .MEDSUPPLY Qty: 1 0RF Rx Instructions: Please get patient set up for oxygen, concentrator, poc, ok to do necessary testing, necessary supplies, lifetime need. atorvastatin 80 mg tablet 80 mg PO QAM Qty: 90 3RF magnesium oxide 400 mg (241.3 mg magnesium) tablet 400 mg PO BID Qty: 60 5RF amlodipine 5 mg tablet 10 mg PO DAILY Qty: 60 5RF diclofenac sodium 1 % gel 2 g TOP QID PRN (Reason: Pain) Qty: 100 3RF aspirin 81 mg tablet,delayed release (DR/EC) 81 mg PO DAILY Qty: 90 1RF metformin 500 mg tablet extended release 24 hr 1,000 mg PO BID Qty: 180 3RF montelukast [Singulair] 10 mg tablet 10 mg PO HS Qty: 90 1RF naproxen 500 mg tablet 500 mg PO BID PRN (Reason: pain) Qty: 180 3RF ropinirole 1 mg tablet 1 mg PO HS Qty: 30 11RF (DME) OneTouch Verio test strips Strip See Rx Instructions .Route Qty: 100 3RF Rx Instructions: test daily (DME) lancets [OneTouch Delica Lancets] 33 gauge misc See Rx Instructions .Route Qty: 100 3RF Rx Instructions: test daily ondansetron 4 mg tablet,disintegrating 4 mg PO Q8H PRN (Reason: nausea and vomiting) Qty: 30 5RF ipratropium-albuterol 0.5 mg-3 mg(2.5 mg base)/3 mL solution for nebulization 3 ml inhalation Q4H PRN (Reason: wheezing) Qty: 180 5RF pantoprazole 40 mg tablet,delayed release (DR/EC) 40 mg PO BID Qty: 180 3RF hydrocodone-acetaminophen 5-325 mg tablet 2 tab PO Q6H PRN (Reason: pain) Qty: 120 0RF Rx Instructions: Must last 15 days. cyclobenzaprine 10 mg tablet 10 mg PO TID PRN (Reason: muscle spasm) Qty: 90 1RF Centrum Complete 18-400 mg-mcg tablet 1 tab PO QAM (DME) nebulizers Misc See Rx Instructions miscellaneous .MEDSUPPLY Qty: 1 0RF Rx Instructions: Use 4 x a day or as directed. Lifetime need. glimepiride 4 mg tablet 4 mg PO DAILY Qty: 30 2RF sodium chloride 7 % solution for nebulization 4 ml inhalation BID Qty: 240 5RF albuterol sulfate 90 mcg/actuation HFA aerosol inhaler 2 puff INHALATION 6XD PRN (Reason: Wheezing) Qty: 8.5 3RF fluticasone propionate [Flonase Allergy Relief] 50 mcg/actuation spray,suspension 1 spray INTNAS QAM PRN (Reason: Nasal Congestion) Qty: 16 11RF Rx Instructions: administer into each nostril furosemide [Lasix] 40 mg tablet 40 mg PO DAILY Qty: 3 0RF melatonin 10 mg Tablet 10 mg PO HS PRN (Reason: Sleep) polyethylene glycol 3350 17 gram/dose powder 17 g PO QAM Trelegy Ellipta 200-62.5-25 mcg blister with device 1 inh inhalation QAM calcium polycarbophil [Fiber (calcium polycarbophil)] 625 mg Tablet 3,129 mg PO QAM docusate sodium [Colace] 100 mg Capsule 300 mg PO BID cinnamon bark [Cinnamon] 500 mg Capsule 500 mg PO QAM Probiotic 15 billion cell Capsule 30 cap PO QAM (DME) lancing device with lancets [Delight Delica Lanc Device] Kit See Rx Instructions .Route Qty: 1 0RF Rx Instructions: As directed - check blood sugars twice daily. (DME) blood-glucose meter [Naonextuch Verio Meter] Misc See Rx Instructions .ROUTE .MEDSUPPLY Qty: 1 0RF Rx Instructions: test 2 times daily (DME) lancets [MunchAwayTouch Delica Plus Lancet] 30 gauge misc See Rx Instructions .ROUTE .MEDSUPPLY Qty: 100 0RF Rx Instructions: As directed - check sugars twice daily guaifenesin [Mucinex] 600 mg tablet extended release 12hr 600 mg PO Q12H PRN (Reason: Congestion) gabapentin 600 mg Tablet 600 mg PO HS Qty: 0 0RF gabapentin 300 mg Capsule 300 mg PO QDL Qty: 0 0RF Rybelsus 3 mg tablet 3 mg PO DAILY Rybelsus 7 mg tablet 7 mg PO UD Rx Instructions: SUSPENDED AT PRESENT--NO PHARMACY HAS IN STOCK Referrals Referrals: Tyrell aMncini MD [Primary Care Provider] -
[2022-11-18 17:52] LABS: Appearance Urine Clear (Clear); Bilirubin Urine Negative (Negative); Blood Urine Negative (Negative); Color Urine Yellow; Glucose Urine UA Trace (Negative); Ketones Urine Negative (Negative); Leukocyte Esterase Urine Negative (Negative); Nitrite Urine Negative (Negative); Protein Urine Negative (Negative); Specific Gravity Urine 1.006 (1.000-1.030); Urobilinogen Urine Negative (Negative)
[2022-11-18 18:05] LABS: Hematocrit (blood only) 43.1 % (37.0-47.0); Hemoglobin 14.9 g/dl (12.0-16.0); Mean Corpuscular Hemoglobin 29.4 pg (25.0-34.0); Mean Corpuscular Hgb Conc 34.6 g/dL (32.0-36.0); Mean Platelet Volume 10.1 fL (9.4-12.4); Platelet Count 289 K/uL (130-400); RDW Coefficient of Variation 13.7 % (11.5-14.5); RDW Standard Deviation 42.5 fL (36.4-46.3); Red Blood Count 5.07 M/uL (4.20-5.40); White Blood Count 7.78 K/ul (4.8-10.8)
[2022-11-18 18:08] LABS: Acetaminophen 3 ug/ml (10-30); Salicylate < 3.0 mg/dl (3.0-30)
[2022-11-18 18:12] LABS: Alanine Aminotransferase 90 U/L (7-52); Albumin Globulin Ratio 1.3 (0.9-2); Albumin Level 4.8 gm/dl (3.4-5.0); Alkaline Phosphatase 122 U/L (34-104); Anion Gap 14 (3-11); Aspartate Aminotransferase 95 U/L (13-39); Bilirubin,Total 0.3 mg/dl (0.2-1.0); Blood Urea Nitrogen 9 mg/dl (6-23); Calcium 9.6 mg/dl (8.5-10.1); Carbon Dioxide 20 mmol/L (21-32); Chloride 106 mmol/L (98-107); Creatine Kinase 47 U/L (26-192); Est GFR (African American) 117.3 ml/min; Est GFR (Non-African American) 101.2 ml/min; Globulin 3.6 gm/dl (2.5-4.0); Glucose 165 mg/dl (70-99(Fasting)); Lipase 18 U/L (11-82); Magnesium 2.5 mg/dl (1.7-2.4); Potassium 3.4 mmol/L (3.5-5.1); Sodium 140 mmol/L (136-145); Total Protein 8.4 gm/dl (6.0-8.3)
[2022-11-18 18:17] LABS: Pregnancy Test, Serum Negative (Negative)
[2022-11-18 18:18] LABS: Troponin I High Sensitivity 3.4 pg/ml (0-14)
[2022-11-18 18:38] LABS: Amphetamines+Metham, Urine Neg (Neg); Barbiturates, Urine Neg (Neg); Benzodiazepine, Urine Neg (Neg); Cocaine, Urine Neg (Neg); MDMA (Ecstacy), Urine Neg (Neg); Methadone, Urine Neg (Neg); Opiate, Urine Neg (Neg); Phencyclidine, Urine Neg (Neg)
[2022-11-18 18:50] LABS: ALC (manual) 4.75 K/uL (1.2-3.4); ANC (manual) 2.41 K/uL (1.4-6.5); Large Granular Lymph # (manua 1.63 K/uL; Large Granular Lymph % (manual) 21 %; Lymphocytes # (manual) 3.11 K/uL (1.2-3.4); Lymphocytes % (manual) 40 %; Monocytes % (manual) 9 %; Neutrophils # (manual) 2.41 K/uL (1.40-6.50); Neutrophils % (manual) 31 %; RBC Morphology Unremarkable
--- NOTE | 2022-11-18 19:08 | History & Physical Report ---
Date of Service November 18, 2022 Assessment & Plan (1) AMS (altered mental status): Plan: -Admit to the PCU on tele -The patient is currently afebrile, hemodynamically stable, but is currently stable on her baseline 3L NC -Patient was found down outside her homeless senior care and EMS was called, has been confused and combative -CT of the head was negative for acute findings, urine tox screen negative, alcohol level at 335 -UA negative, no leukocytosis to suggest acute infection, does not appear that she was having seizure activity prior to arrival or after, LFTs are elevated, will add on an ammonia level -The patient has been extremely agitated and combative and is currently a danger to herself and staff. >Received 2 mg IV ativan, 10 mg IM zyprexa, and 5 mg IM haldol in the ED prior to admission >Currently in soft restraints of the wrists for her safety and the safety of the staff >Aspiration precautions ordered and HOB elevated at 30 degrees for patient safety >Will order 2.5 mg IV haldol prn for agitation/aggression, for use only if more conservative measures are unsuccessful and the patient is a danger to herself or orthers -At this time the patient does NOT have the capacity to make medical decisions or leave AMA -Continue to monitor on tele and continuous pulse oximetry -QTc is currently 520, need to avoid using AT prolonging medications as much as possible -AWSS protocol ordered for high risk withdrawal, banana bag is also ordered on admission -Continue 100 mg IV thiamine and folic acid daily starting tomorrow -The patient flexeril 10 mg PO TID and hydrocodone/acetaminophen on her med rec, unsure if she is still taking both regularly. Per review of the PDMP the patient is regularly being prescribed her hydrocodone/acetaminophen with her last prescription of 120 tabs (15 day supply) being picked up on 11/08/22. Will hold both for now due to her AMS and other sedating meds. Will need to monitor for signs of withdrawal moving foraward. -BL SCD's for DVT PPX for now with her recent fall, can add chemical PPX tomorrow when she is more stable -S/P 1L NSS in the ED, will continue with LR at 100 mL/hr x 2 bags overnight as she will be NPO with her current mental status, no previous hx of CHF -AM CBC, CMP, Mag, PT/INR (2) COVID-19: Plan: -Noted to be covid + on intial ED labs -Was initially hypoxic on RA and was placed on 4L NC -Currently stable on her baseline 3L NC at the time of admission, still waiting on official read of her CXR but on my read she is without significant pleural effusions, no pneumothoraces, and no focal consolidations. -Do not think she needs to start tx for Covid Pneumonia or COPD exacerbation at this time -Continue with incentive spirometry, flutter therapy, home breathing treatments and continuous O2 to keep SpO2 between 89-92% (3) Transaminitis: Plan: -AST, ALT, and alk phos elevated, however, AST and ALT are improving compared to last admission on 10/31/22 -Patient had a CT of the abd/pelvis w/IV contrast on 11/06/22 which was read her liver as "normal in size, contour, and attenuation. There is mild intrahepatic biliary ductal dilatation. The hepatic veins and portal veins are patent.". -Patient would not tolerate a CT or abdominal US at this time and is currently stable, would consider additional imaging tomorrow if less agitated -Monitor AM CMP -Ammonia level in process (4) Mood disorder: Plan: -Does not appear to be on any medications for mood disorder, depression, or anxiety -Would consider psychiatry consult during this admission (5) Alcohol intoxication: Plan: -Patient is acutely intoxicated with an alcohol level of 335 -Unsure what she drank and how much at this time -AWSS ordered to monitor for signs of withdrawal -Banana bag and continued thiamine and folic acid as described in AMS plan (6) GERD (gastroesophageal reflux disease): Plan: -40 mg IV Protonix daily while NPO (7) Restless leg syndrome: Plan: -Continue requip when able to tolerate PO intake safely (8) Chronic respiratory failure with hypoxia: Plan: -Currently stable on baseline 2-3L NC -Continue home breathing txs and pulm hygiene (9) Hypertension: Plan: -BP's have been low-normal since arrival -Would hold amlodipine for now -Continue with IV fluids overnight (10) Diabetes type 2, uncontrolled: Plan: -Hold oral medications at this time -Monitor BSG q4h while NPO, goal is 110-160 for now -Will start low dose basal insulin with 5 units lantus BID -Correction factor of 50 with carb ratio of 15 -Adjust regimen as needed (11) Acute hypokalemia: Plan: -Potassium noted ot be 3.4 in the ED -Mag noted to be 2.5 -Will give 2 bags of 10 meq IV KCL now, monitor AM CMP Plan The patient was seen with and discussed with Dr. Benavides at the time of the admission History of Present Illness Chief Complaint: AMS Primary Care Provider: Tyrell Mancini MD Pippa Schmitt is a 57-year-old female with history of restrictive lung disease secondary to pulmonary fibrosis from H1 N1 influenza infection in 2008 with traction bronchiectasis on home oxygen 2 to 3 L, alcohol abuse, history of PE in 2008 (not on anticoagulation), diabetes, hypertension, GERD, RLS, and dyslipidemia who presented to the [facility] ED on 11/18/22 after being found down outside with AMS. In the ED the patient was found to have a temperature of 36.4, hemodynamically stable, hypoxic on RA at 82%, and tachycardic in the low 100's. Labs were significant for a CBC WNL, absolute lymphocyte count of 4.75, stable cr of 0.60, glucose of 165, potassium of 3.4 mag of 2.5, otherwise stable electrolytes, AG of 14 with bicarb of 20, AST of 95 (down from 114 as of 10/31), ALT of 90 (down from 94 as of 94), and alk phos 122 (up from 118 as of 10/31), UA not suggestive on infection, alcohol level of 335 with negative urine tox screen, and covid [address] of the head was read as "No acute intracranial hemorrhage, midline shift, or mass effect.". Per the ED staff, the patient was very agitated and violent on arrival, she was given 2 doses of IV ativan and 10 mg IM zyprexa and was then placed in restraints for her safety and the safety of the staff. The patient was also given a 1L NSS bolus prior to admission. At the time of the exam the patient was lying in bed asleep as she had received 5 mg IM Haldol approximately 10 min prior to my exam as the patient reportedly became agitated after coming back from CT. The patient will currently respond to painful stimuli and will wake for short periods of time during the exam, she is currently able to protect her own airway. The patient was back on her baseline 3L NC and saturating at 97%. Trauma exam was negative for acute trauma and the patient did not react with palpation of her head, neck, thoracic/lumbar spine, upper extremities, chest, abdomen, pelvis, and BL LE's. We asked the nursing staff to raise the head of her bed at least 30 degrees in order to better protect her airway. Please refer to Dr. Benavides's attestation for any changes to the treatment plan Allergies Allergy/AdvReac Type Severity Reaction Status Date / Time house dust Allergy Intermediate Difficulty Verified 11/20/22 18:42 Breathing mold Allergy Intermediate ASTHMA Verified 11/20/22 18:42 ATTACK Home Medications Medication Instructions Recorded Confirmed Type melatonin 10 mg tablet 10 mg PO HS PRN Sleep 07/05/18 11/24/22 History multivitamin-ferrous 1 tab PO QAM 09/21/19 11/24/22 History fumarate-folic acid 18 mg-400 mcg tablet (Centrum Complete) polyethylene glycol 3350 17 17 g PO QAM 06/11/20 11/24/22 History gram/dose oral powder sodium chloride 7 % for 4 ml inhalation BID #240 mL 08/28/20 11/24/22 Rx nebulization Oxygen Home #1 ea 02/04/21 11/24/22 Rx nebulizers #1 ea 05/06/21 11/24/22 Rx fluticasone fur. 200 mcg-umeclid 1 inh inhalation QAM interstitial 06/21/21 11/24/22 History 62.5 mcg-vilant 25 mcg lung disease inhalat.powder (Trelegy Ellipta) Lactobacillus acidophilus and 30 cap PO QAM 08/04/21 11/24/22 History rhamnosus 15 billion cell capsule (Probiotic) calcium polycarbophil 625 mg 3,129 mg PO QAM 08/04/21 11/24/22 History tablet (Fiber (calcium polycarbophil)) cinnamon bark 500 mg capsule 500 mg PO QAM 08/04/21 11/24/22 History (Cinnamon) docusate sodium 100 mg capsule 300 mg PO BID 08/04/21 11/24/22 History (Colace) atorvastatin 80 mg tablet 80 mg PO QAM #90 tabs 12/19/21 11/24/22 Rx amlodipine 5 mg tablet 10 mg PO DAILY #60 tabs 04/25/22 11/24/22 Rx magnesium oxide 400 mg (241.3 mg 400 mg PO BID #60 tabs 04/25/22 11/24/22 Rx magnesium) tablet diclofenac sodium 1 % topical gel 2 g topical QID PRN Pain #100 grams 05/16/22 11/24/22 Rx aspirin 81 mg tablet,delayed 81 mg PO DAILY #90 tabs 06/17/22 11/24/22 Rx release albuterol sulfate 90 mcg/actuation 2 puff inhalation 6XD PRN Wheezing 07/22/22 11/24/22 Rx aerosol inhaler #8.5 grams fluticasone propionate 50 1 spray intranasal QAM PRN Nasal 07/22/22 11/24/22 Rx mcg/actuation nasal Congestion #16 grams spray,suspension (Flonase Allergy Relief) blood-glucose meter (Multispectral Imaginguch #1 ea 09/19/22 11/24/22 Rx Verio Meter) lancets 30 gauge (O[employer]is [employer] SearchToCoty #100 ea 09/19/22 11/24/22 Rx Plus Lancet) lancing device with lancets kit #1 ea 09/19/22 11/24/22 Rx ([email or web address] Lancing Device kit) metformin 500 mg tablet,extended 1,000 mg PO BID #180 tabs 10/02/22 11/24/22 Rx release 24 hr glimepiride 4 mg tablet 4 mg PO DAILY #30 tabs 10/04/22 11/24/22 Rx guaifenesin 600 mg tablet, 600 mg PO Q12H PRN Congestion 10/04/22 11/24/22 History extended release 12 hr (Mucinex) furosemide 40 mg tablet (Lasix) 40 mg PO DAILY #3 tabs 10/20/22 11/24/22 Rx montelukast 10 mg tablet 10 mg PO HS #90 tabs 10/20/22 11/24/22 Rx (Singulair) naproxen 500 mg tablet 500 mg PO BID PRN pain #180 tabs 10/27/22 11/24/22 Rx ropinirole 1 mg tablet 1 mg PO HS #30 tabs 10/27/22 11/24/22 Rx gabapentin 300 mg capsule 300 mg PO QDL #0 caps 10/29/22 11/24/22 Rx gabapentin 600 mg tablet 600 mg PO HS #0 tabs 10/29/22 11/24/22 Rx blood sugar diagnostic (OneTouch #100 ea 10/31/22 11/24/22 Rx Verio test strips) lancets 33 gauge (BrodieTouch Delica #100 ea 10/31/22 11/24/22 Rx Lancets) ondansetron 4 mg disintegrating 4 mg PO Q8H PRN nausea and 11/03/22 11/24/22 Rx tablet vomiting #30 tabs ipratropium 0.5 mg-albuterol 3 mg 3 ml inhalation Q4H PRN wheezing 11/07/22 11/24/22 Rx (2.5 mg base)/3 mL nebulization #180 mL soln pantoprazole 40 mg tablet,delayed 40 mg PO BID #180 tabs 11/10/22 11/24/22 Rx release cyclobenzaprine 10 mg tablet 10 mg PO TID PRN muscle spasm #90 11/17/22 11/24/22 Rx tabs hydrocodone 5 mg-acetaminophen 325 2 tab PO Q6H PRN pain #120 tabs 11/17/22 11/24/22 Rx mg tablet semaglutide 3 mg tablet (Rybelsus) 3 mg PO DAILY 11/18/22 11/24/22 History semaglutide 7 mg tablet (Rybelsus) 7 mg PO UD 11/18/22 11/24/22 History Past Med/Surg History Medical History Acute pancreatitis Admitted April 2021- had MRCP at that time- recommended EUS six weeks from April admission Aggressive behavior AMS (altered mental status) Anxiety Asthma with exacerbation last used inhaler yesterday Candidiasis of mouth and esophagus Chronic constipation COPD (chronic obstructive pulmonary disease) Depression Diabetes type 2, uncontrolled Hgb A1C 04/25/21 was 7.0 Dysphagia DIFFICULTY SWALLOWING MEDS Foot pain rt tendon "problems" GERD (gastroesophageal reflux disease) Hiatal hernia History of ARDS 2009 (ADMITTED TO [facility] [place]) (SECONDARY TO H1N1 INFECTION)- CONTINUES ON SUPPLEMENTAL OXYGEN History of congestive heart failure 2019 History of ETOH abuse last drink 05-20-20 History of Guillain-Crane syndrome DX'D 2009 History of pulmonary embolism 2008 per PCP records - no AC HTN (hypertension) Hypokalemia Interstitial lung disease Follows with pulm Lumbar degenerative disc disease Lumbar radiculopathy Mood disorder On home oxygen therapy 2-3L O2 WITH EXERTION AND AT HS Post traumatic stress disorder Pulmonary HTN Restless leg syndrome Vaginitis Surgical History History of anesthesia reaction "I HAVE A HARD TIME BREATHING AFTER ANESTHESIA" History of colonoscopy 2020 History of esophagogastroduodenoscopy (EGD) History of laparoscopic cholecystectomy History of radiofrequency ablation procedure for cardiac arrhythmia 2006-NO F/U CARDIOLOGY History of sinus surgery History of tracheostomy resolved History of tracheostomy Hx H1N1 in 2008 with prolonged intubation and mechanical ventilation for 8 months per patient 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 Family History Grandmother (Paternal) Family history of diabetes mellitus Mother , age 81 of uncertain causes No problems noted. Father , early 50s of lymphoma Lymphoma Other No family history of adverse response to anesthesia No significant family history Social History Smoking Status: Unknown if ever smoked Second Hand Exposure: No; Hx Alcohol Use: Yes Alcohol type: beer Hx Substance Use: No Preferred Language: Romanian Communication Ability: Effective Visual Impairment: No Limitations Retort Kiln Burner Required: No Beliefs That Will Affect Care: None marital status: Single Current Living Situation: Homeless Current Living Situation Comment: pt is living at [address] currently homeless she states current occupational status: disabled 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 How many Children do You have: 0 Feels Safe at Home: Yes Gender Identity: Female Assistive Devices: Oxygen - Continuous Review of Systems Review of Systems: ROS unable to be obtained due to the patient's current mental status Physical Exam Physical Exam: Physical Exam: General: Currently responding to touch and painful stimuli, poor hygiene, non-toxic appearing HEENT: Normocephalic, atraumatic, no scleral icterus, pupils around round, symmetrical, and reactive to light, dry mucus, trachea midline, no thyromegaly Chest/Pulm: No respiratory distress, symmetrical chest expansion, expiratory wheezing noted throughout but no focal consolidations noted Cardiac: RRR, no murmurs noted Abdomen: Negative for ascites and bruising, normoactive bowel sounds, soft, non-tender to palpation throughout Musculoskeletal: Symmetrical and without signs of acute trauma, upper and lower extremities without tenderness to palpation, no tenderness to palpation of the head, neck, back, and pelvis Extremities: Radial, dorsalis pedis, and posterior tibial pulses are intact and symmetrical, no edema noted in the BL LE's Skin: Warm, dry, no rashes , lesions, or scars noted Neuro: Currently responding only to touch and painful stimuli, no focal defects on exam, CN and strength testing unable to be performed due to current mental status, 2+ BL patellar reflexes, negative Babinski sign BL Psych: Currently sleeping due to sedative medications and alcohol in her system prior to admission Results & Data Results & Data ([facility]) Vital Signs (Past 12 Hours) Vital Signs Temp Pulse Resp BP Pulse Ox O2 Del Method O2 Flow Rate 11/18/22 18:15 92 H 18 98 11/18/22 18:00 94 H 29 H 97 11/18/22 18:00 127/72 11/18/22 17:46 133/82 11/18/22 17:46 92 H 28 H 95 11/18/22 17:45 99 H 30 H 97 11/18/22 17:33 95 H 23 92 Nasal Cannula 4 11/18/22 17:33 125/79 11/18/22 17:30 105 H 19 89 L Nasal Cannula 2 11/18/22 17:18 105 H 20 87 L Nasal Cannula 2 11/18/22 17:05 98 Nasal Cannula 4 11/18/22 17:00 36.4 C L 103 H 16 133/82 82 L Room Air 11/18/22 17:39 105 H Laboratory Results Abnormal lab results 11/18/22 11/18/22 11/18/22 Range/Units 17:35 17:35 17:35 Total Abs Lymphocytes (1.2-3.4) K/uL Monocytes # (Manual) (0.11-0.59) K/uL Potassium 3.4 L (3.5-5.1) mmol/L Carbon Dioxide 20 L (21-32) mmol/L Anion Gap 14 H (3-11) Glucose 165 H (70-99(Fasting)) mg/dl Magnesium 2.5 H (1.7-2.4) mg/dl AST 95 H (13-39) U/L ALT 90 H (7-52) U/L Alkaline Phosphatase 122 H (34-104) U/L Total Protein 8.4 H (6.0-8.3) gm/dl Urine Glucose (UA) (Negative) Salicylates < 3.0 L (3.0-30) mg/dl Acetaminophen 3 L (10-30) ug/ml Ethyl Alcohol mg/dL 335.8 H (<10.0) mg/dl SARS-CoV-2, RNA, NAAT (NEGATIVE) 11/18/22 11/18/22 11/18/22 Range/Units 17:35 17:35 17:45 Total Abs Lymphocytes 4.75 H (1.2-3.4) K/uL Monocytes # (Manual) 0.70 H (0.11-0.59) K/uL Potassium (3.5-5.1) mmol/L Carbon Dioxide (21-32) mmol/L Anion Gap (3-11) Glucose (70-99(Fasting)) mg/dl Magnesium (1.7-2.4) mg/dl AST (13-39) U/L ALT (7-52) U/L Alkaline Phosphatase (34-104) U/L Total Protein (6.0-8.3) gm/dl Urine Glucose (UA) Trace H (Negative) Salicylates (3.0-30) mg/dl Acetaminophen (10-30) ug/ml Ethyl Alcohol mg/dL (<10.0) mg/dl SARS-CoV-2, RNA, NAAT POSITIVE A* (NEGATIVE) Diagnostic Findings Head CT 11/18/22 17:35 Exam(s): CT HEAD Without Contrast EXAM: CT Head Without Intravenous Contrast CLINICAL HISTORY: Reason for exam: ams. TECHNIQUE: Axial computed tomography images of the head/brain without intravenous contrast. Automated exposure control was utilized for the study. A dose lowering technique was utilized adhering to the principles of ALARA. COMPARISON: No relevant prior studies available. FINDINGS: No acute intracranial hemorrhage. No midline shift or mass effect. The territorial sanchez-white matter differentiation is maintained throughout. Age-related cerebral volume loss. Periventricular and subcortical white matter hypoattenuation, consistent with chronic microangiopathy. The visualized orbits appear grossly unremarkable. The calvarium is intact. The visualized paranasal sinuses and mastoid air cells are grossly clear. IMPRESSION: No acute intracranial hemorrhage, midline shift, or mass effect. Electronically signed by: Godfrey Gonsales MD 11/18/22 19:53 PM ECG Additional Comments: Poor data quality, interpretation may be adversely affected Sinus tachycardia with Fusion complexes Possible Left atrial enlargement Low voltage QRS Inferior infarct , age undetermined Cannot rule out Anterior infarct (cited on or before 06-MAY-2014) Abnormal ECG When compared with ECG of 18-NOV-2022 17:28, (unconfirmed) Previous ECG has undetermined rhythm, needs review Right bundle branch block is no longer Present ... Code Status & VTE Plan Code Status FUll code Supervising Physician Co-Signing Physician Notes Patient seen and examined, chart reviewed, case discussed with Juan J Kamara PA-C and I agree with the assessment and plan as above except as otherwise noted Labs and images reviewed 57-year-old female with history of pulmonary fibrosis/RLD, past PE no longer on anticoagulation, DM, hypertension, GERD, restless leg syndrome who presented to the ER with altered mentation. Patient did have a alcohol level of 345 on admission. On ER arrival patient was well oriented to place, and was extremely agitated/violent and placing a risk of harm to herself and staff. Was given IV Ativan, IM Zyprexa, and subsequently 5 mg of IM Haldol for extreme agitation. CThead negative, no evidence of infection, UA bland, no leukocytosis, likely residual positive from COVID. Suspect etiology is acute alcohol intoxication. Continuous telemetry given multiple antipsychotics required for patient's safety and QT PE on EKG. At bedside patient arouses transiently to painful stimuli, but does not follow commands. Lungs are diminished but clear. Pupils are equal and reactive to light. Strength unable to be assessed. Heart rate regular. Agree with management above. PG Care Time/CCT Total # of Minutes Spent Total Time Spent with Patient: Total time spent is greater than 50% in coordination of care (as documented) at patient's floor/unit and/or counseling patient: Coding [place] [address] INT INP/OBS CARE 3/75MIN Patient Type Established Medical Decision Making High Complexity Diagnoses AMS (altered mental status) R41.82 COVID-19 U07.1 Transaminitis R74.01 Mood disorder F39 Alcohol intoxication F10.929 GERD (gastroesophageal reflux disease) K21.9 Restless leg syndrome G25.81 Chronic respiratory failure with hypoxia J96.11 Hypertension I10 Diabetes type 2, uncontrolled E11.65 Acute hypokalemia E87.6
[2022-11-18] MEDS ORDERED: HALOPERIDOL LACTATE 5 MG/ML 1 ML VIAL IM STA (19:13)
[2022-11-18] MEDS ORDERED: LORazepam 2 MG/1 ML VIAL IV PRN ×3 (19:33)
[2022-11-18] MEDS ORDERED: Ativan IV Alcohol Withdrawal--Active Protocol IV PRN (19:33)
[2022-11-18] MEDS ORDERED: MULTI-VITAMIN INFUSION 10 ML, THIAMINE HCL 100 MG, FOLIC ACID 1 MG in SODIUM CHLORIDE 0... IV ONE (19:45)
--- NOTE | 2022-11-18 19:54 | CT Scan Report ---
Exam(s): CT HEAD Without Contrast EXAM: CT Head Without Intravenous Contrast CLINICAL HISTORY: Reason for exam: ams. TECHNIQUE: Axial computed tomography images of the head/brain without intravenous contrast. Automated exposure control was utilized for the study. A dose lowering technique was utilized adhering to the principles of ALARA. COMPARISON: No relevant prior studies available. FINDINGS: No acute intracranial hemorrhage. No midline shift or mass effect. The territorial sanchez-white matter differentiation is maintained throughout. Age-related cerebral volume loss. Periventricular and subcortical white matter hypoattenuation, consistent with chronic microangiopathy. The visualized orbits appear grossly unremarkable. The calvarium is intact. The visualized paranasal sinuses and mastoid air cells are grossly clear. IMPRESSION: No acute intracranial hemorrhage, midline shift, or mass effect. Electronically signed by: Godfrey Gonsales MD 11/18/22 19:53 PM
[2022-11-18] MEDS ORDERED: DEXTROSE 50% 50 ML SYRINGE IV PRN (20:33)
[2022-11-18] MEDS ORDERED: CARBOHYDRATES FOR HYPOGLYCEMIA PO PRN (20:33)
[2022-11-18] MEDS ORDERED: GLUCAGON FOR INJ 1 MG VIAL SQ PRN (20:33)
[2022-11-18] MEDS ORDERED: GLUCOSE 10 TAB/TUBE PO PRN (20:33)
[2022-11-18] MEDS ORDERED: GLUCOSE 40% GEL 15 GM TUBE PO PRN (20:33)
[2022-11-18] MEDS ORDERED: INSULIN ASPART PER UNIT CHARGE SC SCH (21:00)
[2022-11-18] MEDS: POTASSIUM CHLORIDE / WTR 10 MEQ/100 ML PLCT IV SCH ×2 (21:16→22:15)
[2022-11-18] MEDS: LACTATED RINGER'S 1,000 ML IV SCH (21:21)
[2022-11-18] MEDS: INSULIN ASPART PER UNIT CHARGE SC SCH (21:40)
[2022-11-18] MEDS: LANTUS PER UNIT CHARGE SQ SCH (21:40)
[2022-11-18] MEDS ORDERED: HALOPERIDOL LACTATE 5 MG/ML 1 ML VIAL IM PRN (22:00)
[2022-11-18] MEDS ORDERED: ALBUT/IPRATROP 3MG/0.5MG NEB 3 ML VIAL INH PRN (22:10)
[2022-11-18] MEDS ORDERED: ALBUTEROL HFA 8 GM INHALER INH PRN (22:10)
[2022-11-18 22:47] LABS: BUN Creatinine Ratio 14.5 (10-20); Calcium 9.2 mg/dl (8.5-10.1); Creatinine Clr Calc Pharmacy 106.1 ml/min; Est GFR (African American) 120.7 ml/min; Est GFR (Non-African American) 104.1 ml/min; Potassium 3.8 mmol/L (3.5-5.1)
[2022-11-18] MEDS: SODIUM CHLOR 7% 4 ML NEB INH SCH (23:14)
[2022-11-18] MEDS: PANTOprazole 40 MG in SYRINGE 0 ML IV SCH (23:20)
[2022-11-19] MEDS: INSULIN ASPART PER UNIT CHARGE SC SCH ×6 (01:22→20:49)
[2022-11-19] MEDS: LACTATED RINGER'S 1,000 ML IV SCH (04:37)
[2022-11-19] MEDS: ASPIRIN 81 MG ECTAB PO SCH (07:18)
[2022-11-19] MEDS: SODIUM CHLOR 7% 4 ML NEB INH SCH (07:18)
[2022-11-19 07:41] LABS: Basophils # (auto) 0.05 K/uL (0-0.2); Eosinophils # (auto) 0.15 K/uL (0-0.50); Hematocrit (blood only) 42.1 % (37.0-47.0); Hemoglobin 14.3 g/dl (12.0-16.0); Immature Granulocytes # (auto) 0.01 K/uL (0.01-0.20); Immature Granulocytes % (auto) 0.2 %; Lymphocytes % (auto) 40.2 %; Mean Corpuscular Hemoglobin 29.2 pg (25.0-34.0); Mean Corpuscular Volume 85.9 fL (80.0-100.0); Mean Platelet Volume 10.2 fL (9.4-12.4); Neutrophils # (auto) 2.17 K/uL (1.40-6.50); Neutrophils % (auto) 43.6 %; Platelet Count 258 K/uL (130-400); RDW Standard Deviation 43.6 fL (36.4-46.3); White Blood Count 4.98 K/ul (4.8-10.8)
[2022-11-19 08:02] LABS: Albumin Globulin Ratio 1.4 (0.9-2); Albumin Level 4.4 gm/dl (3.4-5.0); BUN Creatinine Ratio 12.5 (10-20); Bilirubin,Total 0.4 mg/dl (0.2-1.0); Creatinine Clr Calc Pharmacy 120.7 ml/min; Est GFR (African American) 126.2 ml/min; Est GFR (Non-African American) 108.9 ml/min; Globulin 3.1 gm/dl (2.5-4.0); Magnesium 1.8 mg/dl (1.7-2.4); Potassium 4.5 mmol/L (3.5-5.1); Total Protein 7.5 gm/dl (6.0-8.3)
--- NOTE | 2022-11-19 08:02 | XRay Report ---
XR chest 1V portable CLINICAL HISTORY: ams TECHNIQUE: Single frontal radiograph of the chest was obtained. Comparison: Comparison is made to chest radiograph 10/30/[address] chest 11/06/2022 FINDINGS: No lines and tubes are seen. Cardiomegaly is noted. Reticular interstitial opacities are seen. No aye dence of pleural effusion or pneumothorax. IMPRESSION: Interstitial thickening is seen in the lungs without evidence of acute abnormality. Stable cardiomega ly. ACT 112: Negative or not required by law. Electronically signed by: Nolberto Suh M.D. 11/19/2022 8:00 AM
[2022-11-19 08:07] LABS: Prothrombin Time 10.7 Seconds (9.0-12.0)
[2022-11-19] MEDS: FOLIC ACID 1 MG in SYRINGE 9.8 ML IV SCH (08:29)
[2022-11-19] MEDS: FLUTICASONE FUROATE 200MCG 14 PUFFS/INHALER INH SCH (08:29)
[2022-11-19] MEDS: THIAMINE HCL 100 MG in SYRINGE 9 ML IV SCH (08:30)
[2022-11-19] MEDS: UMECLIDINIUM/VILANTEROL 62.5/25MCG 7 PUFFS/INHALER INH SCH (08:30)
[2022-11-19] MEDS: LANTUS PER UNIT CHARGE SQ SCH (08:51)
[2022-11-19] MEDS ORDERED: NON-FORMULARY MEDICATION (Fluticasone-Umeclidin-Vilanter [Trelegy Ellipta] 200-62.5-25 mcg INH SCH (09:00)
[2022-11-19] MEDS: PANTOprazole 40 MG in SYRINGE 0 ML IV SCH (11:45)
--- NOTE | 2022-11-19 15:36 | Hospitalist Progress Note ---
Date of Service November 19, 2022 Assessment & Plan (1) AMS (altered mental status): Plan: Appears to have had acute metabolic encephalopathy present on admission. Possibly related to alcohol intoxication. Now resolved. Supportive care. CT of the head was negative for acute findings, urine tox screen negative, alcohol level at 335 -UA negative, no leukocytosis to suggest acute infection. Combative on admission but this has resolved. (2) COVID-19: Plan: Does not appear to have active infection. She was COVID-positive in the recent past. Supportive care. (3) Transaminitis: Plan: Mildly elevated. Probably from alcoholism. We will follow. CT of the abd/pelvis w/IV contrast on 11/06/22 which was read her liver as "normal in size, contour, and attenuation. There is mild intrahepatic biliary ductal dilatation. The hepatic veins and portal veins are patent." (4) Mood disorder: Plan: Does not appear to be on any medications for mood disorder, depression, or anxiety . Supportive care. We will follow (5) Alcohol intoxication: Plan: acutely intoxicated on admission with an alcohol level of 335. IV fluids. Supportive care. AWSS. She has had banana bag. Continue thiamine and folic acid (6) GERD (gastroesophageal reflux disease): Plan: Protonix therapy (7) Restless leg syndrome: Plan: Treated with Requip (8) Chronic respiratory failure with hypoxia: Plan: Currently stable on baseline 2-3L NC . Continue home breathing txs and pulm hygiene (9) Hypertension: Plan: BP's have been low-normal since arrival. Holding amlodipine for now . Continue with IV fluids (10) Diabetes type 2, uncontrolled: Plan: ADA diet. Basal insulin therapy. Sliding scale coverage as needed. Metformin is on hold (11) Acute hypokalemia: Plan: Replaced. Serial labs Plan Anticipate eventual discharge to home once stable Admission and Anticipated Discharge Date Admission Date: November 18, 2022 Subjective Slightly lethargic but she is oriented and talkative. IV fluids have been tapered down. Diet has been started. She tested positive for COVID again but she has tested positive in the past and I do not think she has an active COVID infection at this time. Continue treatment protocol for alcohol intoxication. Review of Systems Review of Systems: Constitutional-no fever or chills ENT-no blurred vision, no double vision, no epistaxis, no sore throat Respiratory-no cough, no wheezing, no shortness of breath Cardiac-no palpitations, no chest pain, no syncope GI-no nausea, vomiting, diarrhea, melena, hematochezia -no urinary retention, no urinary incontinence, no dysuria, no hematuria Musculoskeletal-no joint pain, no muscle tenderness Skin-no bruising, no rashes, no pruritus Neuro-no isolated weakness, no paresthesia, no weakness Psych-no depression, no anxiety Physical Exam Physical Exam: General-mildly lethargic but oriented x3. No fevers, no chills HEENT-head atraumatic and normocephalic, pupils equal and reactive to light, extraocular muscles intact Neck-no lymphadenopathy or thyromegaly, trachea midline Chest-clear to auscultation percussion. No rales wheezing or rhonchi Cardiac-regular rate and rhythm, normal S1 and S2 Abdomen-normal bowel sounds, nontender, no hepatosplenomegaly Extremities-no cyanosis, clubbing, or edema Neuro-cranial nerves II through XII intact, motor and sensory function within normal limits, strength symmetrical , no focal deficits Psych-normal affect, normal mood Results & Data Results & Data ([facility]) Vital Signs (Past 12 Hours) Vital Signs Temp Pulse Pulse Resp BP Pulse Ox O2 Del Method 11/19/22 12:04 37.0 C 99 H 20 162/99 H 99 Nasal Cannula 11/19/22 08:00 94 H 11/19/22 08:09 36.9 C 91 H 20 159/102 H 98 Nasal Cannula 11/19/22 07:18 96 H 18 98 Nasal Cannula O2 Flow Rate 11/19/22 12:04 2.0 11/19/22 08:00 11/19/22 08:09 2.0 11/19/22 07:18 2 Laboratory Results 11/19/22 07:21 11/19/22 07:21 PG Care Time/CCT Total # of Minutes Spent Total Time Spent with Patient: Total time spent is greater than 50% in coordination of care (as documented) at patient's floor/unit and/or counseling patient: Coding Level of Care Code 22312 SUB INP/OBS CARE 3/50MIN Diagnoses AMS (altered mental status) R41.82 COVID-19 U07.1 Transaminitis R74.01 Mood disorder F39 Alcohol intoxication F10.929 GERD (gastroesophageal reflux disease) K21.9 Restless leg syndrome G25.81 Chronic respiratory failure with hypoxia J96.11 Hypertension I10 Diabetes type 2, uncontrolled E11.65 Acute hypokalemia E87.6
[2022-11-19] MEDS ORDERED: Nursing to Pharmacy Communication SCH (19:15)
[2022-11-19] MEDS ORDERED: rOPINIRole HCL 1 MG TABLET PO SCH (21:00)
[2022-11-19] MEDS ORDERED: GABAPENTIN 600 MG TAB PO SCH (21:00)
[2022-11-19] MEDS ORDERED: OXYMETAZOLINE 0.05% 30 ML BTL PRN (23:05)
[2022-11-19] MEDS ORDERED: CYCLOBENZAPRINE HCL 10 MG TAB PO PRN (23:05)
[2022-11-19] MEDS ORDERED: HYDROCODONE/ACETAMOPHEN 5/325MG TAB PO PRN (23:05)
[2022-11-19] MEDS ORDERED: DICLOFENAC SOD 1% GEL 100 GM TUBE EXT PRN (23:05)
[2022-11-20] MEDS: INSULIN ASPART PER UNIT CHARGE SC SCH ×4 (00:17→12:07)
[2022-11-20] MEDS: PANTOprazole 40 MG TAB PO SCH ×2 (05:34→08:09)
--- NOTE | 2022-11-20 05:51 | Electrocardiogram Report ---
Test Reason : Blood Pressure : / mmHG Vent. Rate : 104 BPM Atrial Rate : 104 BPM P-R Int : 154 ms QRS Dur : 068 ms QT Int : 396 ms P-R-T Axes : 055 -27 082 degrees QTc Int : 520 ms Poor data quality, interpretation may be adversely affected Sinus tachycardia Possible Left atrial enlargement Low voltage QRS Inferior infarct (cited on or before 06-MAY-2014) Cannot rule out Anterior infarct (cited on or before 06-MAY-2014) Abnormal ECG When compared with ECG of 26-OCT-2022 19:02, No significant change Confirmed by Pipo Jones ([id number]) on 11/20/2022 5:51:14 AM Referred By: REFERRED SELF Confirmed By:Pipo Jones
[2022-11-20 07:29] LABS: Basophils # (auto) 0.05 K/uL (0-0.2); Eosinophils % (auto) 4.1 %; Hematocrit (blood only) 38.3 % (37.0-47.0); Hemoglobin 13.1 g/dl (12.0-16.0); Lymphocytes # (auto) 2.41 K/uL (1.2-3.4); Lymphocytes % (auto) 49.4 %; Mean Corpuscular Hgb Conc 34.2 g/dL (32.0-36.0); Mean Corpuscular Volume 84.7 fL (80.0-100.0); Mean Platelet Volume 9.8 fL (9.4-12.4); Monocytes # (auto) 0.62 K/uL (0.11-0.59); Monocytes % (auto) 12.7 %; Neutrophils % (auto) 32.8 %; Platelet Count 238 K/uL (130-400); RDW Coefficient of Variation 13.8 % (11.5-14.5); RDW Standard Deviation 42.8 fL (36.4-46.3); Red Blood Count 4.52 M/uL (4.20-5.40); White Blood Count 4.88 K/ul (4.8-10.8)
[2022-11-20 07:44] LABS: Albumin Globulin Ratio 1.3 (0.9-2); Albumin Level 3.9 gm/dl (3.4-5.0); BUN Creatinine Ratio 19.6 (10-20); Bilirubin,Total 0.4 mg/dl (0.2-1.0); Calcium 8.9 mg/dl (8.5-10.1); Creatinine Clr Calc Pharmacy 105.2 ml/min; Est GFR (Non-African American) 103.5 ml/min; Globulin 2.9 gm/dl (2.5-4.0); Total Protein 6.8 gm/dl (6.0-8.3)
[2022-11-20] MEDS: FOLIC ACID 1 MG in SYRINGE 9.8 ML IV SCH (08:09)
[2022-11-20] MEDS: THIAMINE HCL 100 MG in SYRINGE 9 ML IV SCH (08:09)
[2022-11-20] MEDS: ASPIRIN 81 MG ECTAB PO SCH (08:10)
[2022-11-20] MEDS: UMECLIDINIUM/VILANTEROL 62.5/25MCG 7 PUFFS/INHALER INH SCH (08:10)
[2022-11-20] MEDS: FLUTICASONE FUROATE 200MCG 14 PUFFS/INHALER INH SCH (08:10)
[2022-11-20] MEDS: LANTUS PER UNIT CHARGE SQ SCH (08:11)
--- NOTE | 2022-11-20 09:35 | XRay Report ---
XR hand LT min 3V routine HISTORY: 57 years-old Female edema acute left hand pain COMPARISON: None TECHNIQUE: 3 views of the left hand FINDINGS: Mild multifocal osteoarthritis. Demineralized appearance of the bones. No acute fracture, dislocation or opaque foreign body identified. Dorsal hand and wrist soft tissue swelling. IMPRESSION: Soft tissue swelling without acute osseous abnormality. ACT 112: Negative or not required by law. The above report was generated using voice recognition software. It may contain grammatical, syntax o r spelling errors. Electronically signed by: Johan Fountain M.D. 11/20/2022 9:33 AM
--- NOTE | 2022-11-20 11:43 | Discharge Summary ---
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 In the ED the patient was found to have a temperature of 36.4, hemodynamically stable, hypoxic on RA at 82%, and tachycardic in the low 100's. Labs were significant for a CBC WNL, absolute lymphocyte count of 4.75, stable cr of 0.60, glucose of 165, potassium of 3.4 mag of 2.5, otherwise stable electrolytes, AG of 14 with bicarb of 20, AST of 95 (down from 114 as of 10/31), ALT of 90 (down from 94 as of 94), and alk phos 122 (up from 118 as of 10/31), UA not suggestive on infection, alcohol level of 335 with negative urine tox screen, and covid [address] of the head was read as "No acute intracranial hemorrhage, midline shift, or mass effect.". Per the ED staff, the patient was very agitated and violent on arrival, she was given 2 doses of IV ativan and 10 mg IM zyprexa and was then placed in restraints for her safety and the safety of the staff. The patient was also given a 1L NSS bolus prior to admission. At the time of the exam the patient was lying in bed asleep as she had received 5 mg IM Haldol approximately 10 min prior to my exam as the patient reportedly became agitated after coming back from CT. The patient will currently respond to painful stimuli and will wake for short periods of time during the exam, she is currently able to protect her own airway. The patient was back on her baseline 3L NC and saturating at 97%. Trauma exam was negative for acute trauma and the patient did not react with palpation of her head, neck, thoracic/lumbar spine, upper extremities, chest, abdomen, pelvis, and BL LE's. We asked the nursing staff to raise the head of her bed at least 30 degrees in order to better protect her airway. Please refer to Dr. Benavides's attestation for any changes to the treatment plan Principal Diagnosis Alcohol intoxication, hypokalemia, COVID positivity which is not new, soft tissue injury to left hand Discharge Exam General-alert and oriented x3. No fevers, no chills HEENT-head atraumatic and normocephalic, pupils equal and reactive to light, extraocular muscles intact Neck-no lymphadenopathy or thyromegaly, trachea midline Chest-clear to auscultation percussion. No rales wheezing or rhonchi Cardiac-regular rate and rhythm, normal S1 and S2 Abdomen-normal bowel sounds, nontender, no hepatosplenomegaly Extremities-tenderness and mild bruising and mild edema to the dorsal aspect of the left hand. No palpable fracture Neuro-cranial nerves II through XII intact, motor and sensory function within normal limits, strength symmetrical , no focal deficits Psych-normal affect, normal mood Discharge Data Allergies Allergy/AdvReac Type Severity Reaction Status Date / Time house dust Allergy Intermediate Difficulty Verified 11/18/22 18:43 Breathing mold Allergy Intermediate ASTHMA Verified 11/18/22 18:43 ATTACK Consultations 11/18/22 19:26 ED Decision to Admit Stat Ordered Studies 11/18/22 17:35 CT head/brain wo con Stat Hospital Course (1) AMS (altered mental status): Appears to have had acute metabolic encephalopathy present on admission. Poss ibly related to alcohol intoxication. Now resolved. Supportive care. CT of the head was negative for acute findings, urine tox screen negative, alcohol level at 335 -UA negative, no leukocytosis to suggest acute infection. Combative on admission but this has resolved. (2) COVID-19: Does not appear to have active infection. She was COVID-positive in the recent past. Supportive care. (3) Transaminitis: Mildly elevated. Probably from alcoholism. We will follow. CT of the abd/pelvis w/IV contrast on 11/06/22 which was read her liver as "normal in size, contour, and attenuation. There is mild intrahepatic biliary ductal dilatation. The hepatic veins and portal veins are patent." (4) Mood disorder: Does not appear to be on any medications for mood disorder, depression, or anxiety . Supportive care. We will follow (5) Alcohol intoxication: acutely intoxicated on admission with an alcohol level of 335. IV fluids. Supportive care. AWSS. She has had banana bag. Continue thiamine and folic acid (6) GERD (gastroesophageal reflux disease): Protonix therapy (7) Restless leg syndrome: Treated with Requip (8) Chronic respiratory failure with hypoxia: Currently stable on baseline 2-3L NC . Continue home breathing txs and pulm hygiene (9) Hypertension: BP's have been low-normal since arrival. Holding amlodipine for now . Continue with IV fluids (10) Diabetes type 2, uncontrolled: ADA diet. Basal insulin therapy. Sliding scale coverage as needed. Metformin is on hold. Restart at discharge (11) Acute hypokalemia: Replaced. Serial labs (12) Soft tissue injury of left hand: Suspected sprain from falling. No fracture evident on x-ray. Local care Plan Discharge to home todayNovember 20 Total Time Total Time Spent Total Time Spent (In Minutes): 40 minutes Discharge Plan Discharge Items Patient Disposition: Home - Self-Care Reason For Visit: AMS Discharge Diagnosis: Acute alcohol intoxication with associated mental status changes, hypokalemia, soft tissue injury to the left hand, chronic COVID positivity Activity: Resume your previous activity Non-emergency contact: Primary Care Provider Call non-emergency contact if: you have any medication questions Follow-up/Referrals: Tyrell Mancini MD [Primary Care Provider] - Diet: Carb Consistent or DM2 and Heart Healthy Addtl Attending Provider Instructions: Take [id number] Motrin 200 mg as needed for left hand discomfort until no longer needed. Consider discontinuing all alcohol intake Pending Studies at Discharge: No Stand-Alone Forms: My [facility] Message Missile, Smoking Cessation Medications and DC Order Prescriptions: Continued (DME) Oxygen Home Liters Per Minute See Rx Instructions .MEDSUPPLY Qty: 1 0RF Rx Instructions: Please get patient set up for oxygen, concentrator, poc, ok to do necessary testing, necessary supplies, lifetime need. atorvastatin 80 mg tablet 80 mg PO QAM Qty: 90 3RF magnesium oxide 400 mg (241.3 mg magnesium) tablet 400 mg PO BID Qty: 60 5RF amlodipine 5 mg tablet 10 mg PO DAILY Qty: 60 5RF diclofenac sodium 1 % gel 2 g TOP QID PRN (Reason: Pain) Qty: 100 3RF aspirin 81 mg tablet,delayed release (DR/EC) 81 mg PO DAILY Qty: 90 1RF metformin 500 mg tablet extended release 24 hr 1,000 mg PO BID Qty: 180 3RF montelukast [Singulair] 10 mg tablet 10 mg PO HS Qty: 90 1RF naproxen 500 mg tablet 500 mg PO BID PRN (Reason: pain) Qty: 180 3RF ropinirole 1 mg tablet 1 mg PO HS Qty: 30 11RF (DME) OneTouch Verio test strips Strip See Rx Instructions .Route Qty: 100 3RF Rx Instructions: test daily (DME) lancets [OneTouch Delica Lancets] 33 gauge misc See Rx Instructions .Route Qty: 100 3RF Rx Instructions: test daily ondansetron 4 mg tablet,disintegrating 4 mg PO Q8H PRN (Reason: nausea and vomiting) Qty: 30 5RF ipratropium-albuterol 0.5 mg-3 mg(2.5 mg base)/3 mL solution for nebulization 3 ml inhalation Q4H PRN (Reason: wheezing) Qty: 180 5RF pantoprazole 40 mg tablet,delayed release (DR/EC) 40 mg PO BID Qty: 180 3RF hydrocodone-acetaminophen 5-325 mg tablet 2 tab PO Q6H PRN (Reason: pain) Qty: 120 0RF Rx Instructions: Must last 15 days. cyclobenzaprine 10 mg tablet 10 mg PO TID PRN (Reason: muscle spasm) Qty: 90 1RF Centrum Complete 18-400 mg-mcg tablet 1 tab PO QAM (DME) nebulizers [facility] See Rx Instructions miscellaneous .MEDSUPPLY Qty: 1 0RF Rx Instructions: Use 4 x a day or as directed. Lifetime need. glimepiride 4 mg tablet 4 mg PO DAILY Qty: 30 2RF sodium chloride 7 % solution for nebulization 4 ml inhalation BID Qty: 240 5RF albuterol sulfate 90 mcg/actuation HFA aerosol inhaler 2 puff INHALATION 6XD PRN (Reason: Wheezing) Qty: 8.5 3RF fluticasone propionate [Flonase Allergy Relief] 50 mcg/actuation spray,suspension 1 spray INTNAS QAM PRN (Reason: Nasal Congestion) Qty: 16 11RF Rx Instructions: administer into each nostril furosemide [Lasix] 40 mg tablet 40 mg PO DAILY Qty: 3 0RF melatonin 10 mg Tablet 10 mg PO HS PRN (Reason: Sleep) polyethylene glycol 3350 17 gram/dose powder 17 g PO QAM Trelegy Ellipta 200-62.5-25 mcg blister with device 1 inh inhalation QAM calcium polycarbophil [Fiber (calcium polycarbophil)] 625 mg Tablet 3,129 mg PO QAM docusate sodium [Colace] 100 mg Capsule 300 mg PO BID cinnamon bark [Cinnamon] 500 mg Capsule 500 mg PO QAM Probiotic 15 billion cell Capsule 30 cap PO QAM (DME) lancing device with lancets [[employer] Lanc Device] Kit See Rx Instructions .Route Qty: 1 0RF Rx Instructions: As directed - check blood sugars twice daily. (DME) blood-glucose meter [[employer] Verio Meter] Misc See Rx Instructions .ROUTE .MEDSUPPLY Qty: 1 0RF Rx Instructions: test 2 times daily (DME) lancets [[employer] Delica Plus Lancet] 30 gauge misc See Rx Instructions .ROUTE .MEDSUPPLY Qty: 100 0RF Rx Instructions: As directed - check sugars twice daily guaifenesin [Mucinex] 600 mg tablet extended release 12hr 600 mg PO Q12H PRN (Reason: Congestion) gabapentin 600 mg Tablet 600 mg PO HS Qty: 0 0RF gabapentin 300 mg Capsule 300 mg PO QDL Qty: 0 0RF Rybelsus 3 mg tablet 3 mg PO DAILY Rybelsus 7 mg tablet 7 mg PO UD Rx Instructions: SUSPENDED AT PRESENT--NO PHARMACY HAS IN STOCK Admission Data Admit Date/Time: 11/18/22 19:22 Attending Provider: Edmar Hebert Admit Provider: Dario Benavides Primary Care Provider: Tyrell Mancini Other Providers: Dario Benavides Coding Level of Care Code 98707 INP/OBS DISCH >30 MIN Diagnoses AMS (altered mental status) R41.82 COVID-19 U07.1 Transaminitis R74.01 Mood disorder F39 Alcohol intoxication F10.929 GERD (gastroesophageal reflux disease) K21.9 Restless leg syndrome G25.81 Chronic respiratory failure with hypoxia J96.11 Hypertension I10 Diabetes type 2, uncontrolled E11.65 Acute hypokalemia E87.6 Soft tissue injury of left hand S69.92XA
== END 2022-11-20 13:26 | disposition home or self-care (01) | DRG 896 ==
LOC: ED 17:12 → INTOOBSV 19:22 → EDINP 19:22 → SUATTDRO 19:22 → 2S 11-19 00:30
DX: Y90.8 Blood alcohol level of 240 mg/100 ml or more; J84.10 Pulmonary fibrosis, unspecified; Z99.81 Dependence on supplemental oxygen; I10 Essential (primary) hypertension; R74.01 Elevation of levels of liver transaminase levels; G93.41 Metabolic encephalopathy; U07.1 COVID-19; W18.39XA Other fall on same level, initial encounter; S69.92XA Unspecified injury of left wrist, hand and finger(s), initial encounter; F10.229 Alcohol dependence with intoxication, unspecified; E11.65 Type 2 diabetes mellitus with hyperglycemia; F39 Unspecified mood [affective] disorder; Y92.89 Other specified places as the place of occurrence of the external cause; G25.81 Restless legs syndrome; Z79.899 Other long term (current) drug therapy; J96.11 Chronic respiratory failure with hypoxia; Z79.85 Long-term (current) use of injectable non-insulin antidiabetic drugs; E87.6 Hypokalemia; K21.9 Gastro-esophageal reflux disease without esophagitis; Z59.01 Sheltered homelessness; S63.92XA Sprain of unspecified part of left wrist and hand, initial encounter; Z86.711 Personal history of pulmonary embolism; R41.82 Altered mental status, unspecified

== ENCOUNTER 2022-11-20 16:34 | Observation (INO) ==
[2022-11-20] MEDS ORDERED: LORazepam 2 MG/1 ML VIAL IV STA (16:54)
[2022-11-20] MEDS ORDERED: HALOPERIDOL LACTATE 5 MG/ML 1 ML VIAL IM STA (16:54)
[2022-11-20] MEDS ORDERED: SODIUM CHLORIDE 0.9% 1000ML 1,000 ML IV ONE (17:02)
--- NOTE | 2022-11-20 17:03 | Emergency Department Note ---
Impression & Plan Alcohol intoxication, Altered mental status ED Provider Note INFORMANT: Patient and EMS ED PROVIDER(S): Juan J Escalante DO CHIEF COMPLAINT: Altered mental status PLAN: Disposition: Admission Outpatient prescription management: none Discussion with: I spoke with the hospitalist, who will see the patient for admission/observation and further evaluation and consultation. MEDICAL DECISION MAKING: This is a 57-year-old female who presents to the ED with a chief complaint of an altered mental status. The patient was discharged from the hospital earlier today. The patient was brought in by EMS. The patient was agitated and uncooperative when she came in. She was unable to provide me any valuable history, however she denies using alcohol for the past 2 years. She was just discharged from the hospital after being brought in for alcohol intoxication with an alcohol level of 335 a few days ago. The patient also appears to be chronically COVID-positive. Her physical exam reveals that she is agitated and not cooperative although she does calm down when you talk to her. When asked if she had any alcohol to drink, she denied it. When I told her that she had an alcohol level of 335 a few days ago, she stated "fuck you". The patient's exam was otherwise unremarkable for any obvious acute abnormality. No evidence of any trauma other than some bruises on her arms related to her recent admission likely the IVs. Her vital signs reveal oxygen saturation of 89% on 2 L. She has a history of COPD and is typically on 2 L at home. A chest x-ray shows some chronic interstitial changes. Alcohol level was 345 today. CBC did not show anemia or acute leukocytosis. Chemistry panel showed no electrolyte abnormality. Glucose was 230. Chronic transaminitis. I did speak with the hospitalist about the patient. They will see the patient for further evaluation and care for Triage Nursing notes reviewed. Vital Signs: reviewed Prior /Outside records reviewed: Internal medicine note from recent admission shows chronic COVID. Differential diagnosis: Differential includes alcohol intoxication, metabolic derangement, electrolyte abnormality, anemia, hypoxia, pneumonia, other. Diagnostics, as interpreted by me: 12 lead ECG: [none] Cardiac Monitoring ordered: Sinus rhythm in the 90s. No ectopy. Medical decision rules: [none] Imaging studies: Chest x-ray: Chronic interstitial changes. No acute pneumonia or pneumothorax. Procedures: none. Critical care: none. HPI: See MDM above. PAST MEDICAL HISTORY: See Below PAST SURGICAL HISTORY: See Below SOCIAL HISTORY: See Below HOME MEDICATIONS: See Below ALLERGIES: See Below VITALS: See Below PHYSICAL EXAMINATION: See MDM for positive findings otherwise unremarkable. CONSTITUTIONAL/VITAL SIGNS: Reviewed GENERAL:done as appropriate INTEGUMENTARY: done as appropriate HEAD: done as appropriate EYES: done as appropriate RESPIRATORY: done as appropriate CARDIOVASCULAR:done as appropriate GI/ABDOMEN:done as appropriate EXTREMITIES: done as appropriate NEUROLOGICAL: done as appropriate PSYCHIATRIC:done as appropriate MUSCULOSKELETAL:done as appropriate TRIAGE NURSING DOCUMENTATION REVIEWED. Past Med/Surg History Medical History Acute pancreatitis Admitted April 2021- had MRCP at that time- recommended EUS six weeks from April admission Aggressive behavior AMS (altered mental status) Anxiety Asthma with exacerbation last used inhaler yesterday Candidiasis of mouth and esophagus Chronic constipation COPD (chronic obstructive pulmonary disease) Depression Diabetes type 2, uncontrolled Hgb A1C 04/25/21 was 7.0 Dysphagia DIFFICULTY SWALLOWING MEDS Foot pain rt tendon "problems" GERD (gastroesophageal reflux disease) Hiatal hernia History of ARDS 2009 (ADMITTED TO [facility]-FLIGHTED TO ECHO) (SECONDARY TO H1N1 INFECTION)- CONTINUES ON SUPPLEMENTAL OXYGEN History of congestive heart failure 2019 History of ETOH abuse last drink 05-20-20 History of Guillain-[place] syndrome DX'D 2009 History of pulmonary embolism 2008 per PCP records - no AC HTN (hypertension) Hypokalemia Interstitial lung disease Follows with pulm Lumbar degenerative disc disease Lumbar radiculopathy Mood disorder On home oxygen therapy 2-3L O2 WITH EXERTION AND AT HS Post traumatic stress disorder Pulmonary HTN Restless leg syndrome Vaginitis Surgical History History of anesthesia reaction "I HAVE A HARD TIME BREATHING AFTER ANESTHESIA" History of colonoscopy 2019 History of esophagogastroduodenoscopy (EGD) History of laparoscopic cholecystectomy History of radiofrequency ablation procedure for cardiac arrhythmia 2005-NO F/U CARDIOLOGY History of sinus surgery History of tracheostomy resolved History of tracheostomy Hx H1N1 in 2008 with prolonged intubation and mechanical ventilation for 8 months per patient 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 Family History Grandmother (Paternal) Family history of diabetes mellitus Mother , age 81 of uncertain causes No problems noted. Father , early 50s of lymphoma Lymphoma Other No family history of adverse response to anesthesia No significant family history Social History Smoking Status: Unknown if ever smoked Second Hand Exposure: No; Hx Alcohol Use: Yes Alcohol type: beer Hx Substance Use: No Preferred Language: Marshallese Communication Ability: Effective Visual Impairment: No Limitations Pet Care Assistant Required: No Beliefs That Will Affect Care: None marital status: Single Current Living Situation: Alone and Homeless Current Living Situation Comment: pt is living at [address] currently homeless she states current occupational status: disabled 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 How many Children do You have: 0 Feels Safe at Home: Yes Gender Identity: Female Assistive Devices: None Allergies Allergies Allergy/AdvReac Type Severity Reaction Status Date / Time house dust Allergy Intermediate Difficulty Verified 11/20/22 18:42 Breathing mold Allergy Intermediate ASTHMA Verified 11/20/22 18:42 ATTACK Home Meds Home Medications Medication Instructions Recorded Confirmed melatonin 10 mg tablet 10 mg PO HS PRN Sleep 07/05/18 11/20/22 multivitamin-ferrous 1 tab PO QAM 09/21/19 11/20/22 fumarate-folic acid 18 mg-400 mcg tablet (Centrum Complete) polyethylene glycol 3350 17 17 g PO QAM 06/11/20 11/20/22 gram/dose oral powder fluticasone fur. 200 mcg-umeclid 1 inh inhalation QAM interstitial 06/21/21 11/20/22 62.5 mcg-vilant 25 mcg lung disease inhalat.powder (Trelegy Ellipta) Lactobacillus acidophilus and 30 cap PO QAM 08/04/21 11/20/22 rhamnosus 15 billion cell capsule (Probiotic) calcium polycarbophil 625 mg 3,129 mg PO QAM 08/04/21 11/20/22 tablet (Fiber (calcium polycarbophil)) cinnamon bark 500 mg capsule 500 mg PO QAM 08/04/21 11/20/22 (Cinnamon) docusate sodium 100 mg capsule 300 mg PO BID 08/04/21 11/20/22 (Colace) guaifenesin 600 mg tablet, 600 mg PO Q12H PRN Congestion 10/04/22 11/20/22 extended release 12 hr (Mucinex) semaglutide 3 mg tablet (Rybelsus) 3 mg PO DAILY 11/18/22 11/20/22 semaglutide 7 mg tablet (Rybelsus) 7 mg PO UD 11/18/22 11/20/22 Previous Rx's Medication Instructions Recorded sodium chloride 7 % for 4 ml inhalation BID #240 mL 08/28/20 nebulization Oxygen Home #1 ea 02/04/21 nebulizers #1 ea 05/06/21 atorvastatin 80 mg tablet 80 mg PO QAM #90 tabs 12/19/21 amlodipine 5 mg tablet 10 mg PO DAILY #60 tabs 04/25/22 magnesium oxide 400 mg (241.3 mg 400 mg PO BID #60 tabs 04/25/22 magnesium) tablet diclofenac sodium 1 % topical gel 2 g topical QID PRN Pain #100 grams 05/16/22 aspirin 81 mg tablet,delayed 81 mg PO DAILY #90 tabs 06/17/22 release albuterol sulfate 90 mcg/actuation 2 puff inhalation 6XD PRN Wheezing 07/22/22 aerosol inhaler #8.5 grams fluticasone propionate 50 1 spray intranasal QAM PRN Nasal 07/22/22 mcg/actuation nasal Congestion #16 grams spray,suspension (Flonase Allergy Relief) blood-glucose meter (Exco inTouch #1 ea 09/19/22 Verio Meter) lancets 30 gauge ([email or web address] #100 ea 09/19/22 Plus Lancet) lancing device with lancets kit #1 ea 09/19/22 ([email or web address] Lancing Device kit) metformin 500 mg tablet,extended 1,000 mg PO BID #180 tabs 10/02/22 release 24 hr glimepiride 4 mg tablet 4 mg PO DAILY #30 tabs 10/04/22 furosemide 40 mg tablet (Lasix) 40 mg PO DAILY #3 tabs 10/20/22 montelukast 10 mg tablet 10 mg PO HS #90 tabs 10/20/22 (Singulair) naproxen 500 mg tablet 500 mg PO BID PRN pain #180 tabs 10/27/22 ropinirole 1 mg tablet 1 mg PO HS #30 tabs 10/27/22 gabapentin 300 mg capsule 300 mg PO QDL #0 caps 10/29/22 gabapentin 600 mg tablet 600 mg PO HS #0 tabs 10/29/22 blood sugar diagnostic ([facility] ea 10/31/22 Verio test strips) lancets 33 gauge ([employer] [facility] [employer] #100 ea 10/31/22 Lancets) ondansetron 4 mg disintegrating 4 mg PO Q8H PRN nausea and 11/03/22 tablet vomiting #30 tabs ipratropium 0.5 mg-albuterol 3 mg 3 ml inhalation Q4H PRN wheezing 11/07/22 (2.5 mg base)/3 mL nebulization #180 mL soln pantoprazole 40 mg tablet,delayed 40 mg PO BID #180 tabs 11/10/22 release cyclobenzaprine 10 mg tablet 10 mg PO TID PRN muscle spasm #90 11/17/22 tabs hydrocodone 5 mg-acetaminophen 325 2 tab PO Q6H PRN pain #120 tabs 11/17/22 mg tablet Results & Data (ED) Vital Signs Vital Signs - 24 hr 11/20/22 16:35 11/20/22 16:54 11/20/22 16:58 Pulse Rate 119 H 122 H Pulse Rate [Left Finger] Pulse Rate from SpO2 Sensor Pulse Rhythm [Left Finger] Pulse Strength [Left Finger] Respiratory Rate 24 Respiratory Effort / Characteristics Non-Labored Respiratory Depth Normal Respiratory Pattern Blood Pressure 150/112 H Blood Pressure [Right Arm] Blood Pressure Mean 124 Blood Pressure Mean [Right Arm] Blood Pressure Position [Right Arm] Pulse Oximetry 89 L Oxygen Delivery Method Room Air Nasal Cannula Oxygen Flow Rate 2 Sepsis Recent Fever Within 48 Hours No Sepsis New/Unexplained Change in Mental Status N/A Sepsis Action Taken by Nursing No Action Required 11/20/22 17:00 11/20/22 17:15 11/20/22 16:46 Pulse Rate 121 H 119 H Pulse Rate [Left Finger] 109 H Pulse Rate from SpO2 Sensor 119 H Pulse Rhythm [Left Finger] Regular Pulse Strength [Left Finger] Normal Respiratory Rate 26 H 25 H 30 H Respiratory Effort / Characteristics Non-Labored Spontaneous Respiratory Depth Normal Respiratory Pattern Regular Blood Pressure 130/87 Blood Pressure [Right Arm] 127/75 Blood Pressure Mean 101 Blood Pressure Mean [Right Arm] 92 Blood Pressure Position [Right Arm] Lying Pulse Oximetry 88 L 95 92 Oxygen Delivery Method Room Air Room Air Oxygen Flow Rate Sepsis Recent Fever Within 48 Hours Sepsis New/Unexplained Change in Mental Status Sepsis Action Taken by Nursing 11/20/22 16:50 11/20/22 17:00 11/20/22 17:10 Pulse Rate 121 H 124 H 118 H Pulse Rate [Left Finger] Pulse Rate from SpO2 Sensor 121 H 126 H 118 H Pulse Rhythm [Left Finger] Pulse Strength [Left Finger] Respiratory Rate 29 H 26 H 32 H Respiratory Effort / Characteristics Respiratory Depth Respiratory Pattern Blood Pressure Blood Pressure [Right Arm] Blood Pressure Mean Blood Pressure Mean [Right Arm] Blood Pressure Position [Right Arm] Pulse Oximetry 93 91 95 Oxygen Delivery Method Oxygen Flow Rate Sepsis Recent Fever Within 48 Hours Sepsis New/Unexplained Change in Mental Status Sepsis Action Taken by Nursing 11/20/22 17:11 11/20/22 17:11 11/20/22 17:14 Pulse Rate 114 H 109 H Pulse Rate [Left Finger] Pulse Rate from SpO2 Sensor 114 H 108 H Pulse Rhythm [Left Finger] Pulse Strength [Left Finger] Respiratory Rate 30 H 25 H Respiratory Effort / Characteristics Respiratory Depth Respiratory Pattern Blood Pressure 130/87 Blood Pressure [Right Arm] Blood Pressure Mean 101 Blood Pressure Mean [Right Arm] Blood Pressure Position [Right Arm] Pulse Oximetry 94 96 Oxygen Delivery Method Oxygen Flow Rate Sepsis Recent Fever Within 48 Hours Sepsis New/Unexplained Change in Mental Status Sepsis Action Taken by Nursing 11/20/22 17:14 11/20/22 17:20 11/20/22 17:30 Pulse Rate 103 H Pulse Rate [Left Finger] Pulse Rate from SpO2 Sensor 103 H Pulse Rhythm [Left Finger] Pulse Strength [Left Finger] Respiratory Rate 21 Respiratory Effort / Characteristics Respiratory Depth Respiratory Pattern Blood Pressure 127/75 132/79 Blood Pressure [Right Arm] Blood Pressure Mean 92 96 Blood Pressure Mean [Right Arm] Blood Pressure Position [Right Arm] Pulse Oximetry 98 Oxygen Delivery Method Oxygen Flow Rate Sepsis Recent Fever Within 48 Hours Sepsis New/Unexplained Change in Mental Status Sepsis Action Taken by Nursing 11/20/22 17:30 11/20/22 17:40 11/20/22 17:50 Pulse Rate 119 H 123 H 117 H Pulse Rate [Left Finger] Pulse Rate from SpO2 Sensor 119 H 123 H 118 H Pulse Rhythm [Left Finger] Pulse Strength [Left Finger] Respiratory Rate 19 26 H 22 Respiratory Effort / Characteristics Respiratory Depth Respiratory Pattern Blood Pressure Blood Pressure [Right Arm] Blood Pressure Mean Blood Pressure Mean [Right Arm] Blood Pressure Position [Right Arm] Pulse Oximetry 90 93 95 Oxygen Delivery Method Oxygen Flow Rate Sepsis Recent Fever Within 48 Hours Sepsis New/Unexplained Change in Mental Status Sepsis Action Taken by Nursing 11/20/22 18:00 11/20/22 18:00 11/20/22 18:10 Pulse Rate 110 H 120 H Pulse Rate [Left Finger] Pulse Rate from SpO2 Sensor 110 H 122 H Pulse Rhythm [Left Finger] Pulse Strength [Left Finger] Respiratory Rate 20 15 Respiratory Effort / Characteristics Respiratory Depth Respiratory Pattern Blood Pressure 124/73 Blood Pressure [Right Arm] Blood Pressure Mean 90 Blood Pressure Mean [Right Arm] Blood Pressure Position [Right Arm] Pulse Oximetry 92 94 Oxygen Delivery Method Oxygen Flow Rate Sepsis Recent Fever Within 48 Hours Sepsis New/Unexplained Change in Mental Status Sepsis Action Taken by Nursing 11/20/22 18:20 11/20/22 18:30 11/20/22 18:30 Pulse Rate 112 H 103 H Pulse Rate [Left Finger] Pulse Rate from SpO2 Sensor 111 H 103 H Pulse Rhythm [Left Finger] Pulse Strength [Left Finger] Respiratory Rate 39 H 16 Respiratory Effort / Characteristics Respiratory Depth Respiratory Pattern Blood Pressure 113/86 Blood Pressure [Right Arm] Blood Pressure Mean 95 Blood Pressure Mean [Right Arm] Blood Pressure Position [Right Arm] Pulse Oximetry 95 98 Oxygen Delivery Method Oxygen Flow Rate Sepsis Recent Fever Within 48 Hours Sepsis New/Unexplained Change in Mental Status Sepsis Action Taken by Nursing 11/20/22 18:40 11/20/22 18:50 11/20/22 19:00 Pulse Rate 113 H 117 H Pulse Rate [Left Finger] Pulse Rate from SpO2 Sensor 112 H 118 H Pulse Rhythm [Left Finger] Pulse Strength [Left Finger] Respiratory Rate 25 H 23 Respiratory Effort / Characteristics Respiratory Depth Respiratory Pattern Blood Pressure 143/76 H Blood Pressure [Right Arm] Blood Pressure Mean 98 Blood Pressure Mean [Right Arm] Blood Pressure Position [Right Arm] Pulse Oximetry 96 94 Oxygen Delivery Method Oxygen Flow Rate Sepsis Recent Fever Within 48 Hours Sepsis New/Unexplained Change in Mental Status Sepsis Action Taken by Nursing 11/20/22 19:00 Pulse Rate 98 H Pulse Rate [Left Finger] Pulse Rate from SpO2 Sensor 97 H Pulse Rhythm [Left Finger] Pulse Strength [Left Finger] Respiratory Rate 17 Respiratory Effort / Characteristics Respiratory Depth Respiratory Pattern Blood Pressure Blood Pressure [Right Arm] Blood Pressure Mean Blood Pressure Mean [Right Arm] Blood Pressure Position [Right Arm] Pulse Oximetry 97 Oxygen Delivery Method Oxygen Flow Rate Sepsis Recent Fever Within 48 Hours Sepsis New/Unexplained Change in Mental Status Sepsis Action Taken by Nursing Laboratory Data 11/20/22 17:10 11/20/22 17:10 Lab Results 11/20/22 11/20/22 11/20/22 Range/Units 17:10 17:10 17:10 WBC 8.33 (4.8-10.8) K/ul RBC 5.22 (4.20-5.40) M/uL Hgb 15.2 (12.0-16.0) g/dl Hct 45.0 (37.0-47.0) % MCV 86.2 (80.0-100.0) fL MCH 29.1 (25.0-34.0) pg MCHC 33.8 (32.0-36.0) g/dL RDW Std Deviation 42.6 (36.4-46.3) fL RDW Coeff of Joyce 13.6 (11.5-14.5) % Plt Count 254 (130-400) K/uL MPV 9.9 (9.4-12.4) fL Neutrophils % (Manual) 28 % Lymphocytes % (Manual) 20 % Monocytes % (Manual) 10 % Eosinophils % (Manual) 4 % Basophils % (Manual) 3 % Metamyelocytes % (Man) 1 % Neutrophils # (Manual) 2.33 (1.40-6.50) K/uL Total Absolute Neuts 2.33 (1.4-6.5) K/uL Lymphocytes # (Manual) 1.67 (1.2-3.4) K/uL Total Abs Lymphocytes 4.58 H (1.2-3.4) K/uL Monocytes # (Manual) 0.83 H (0.11-0.59) K/uL Eosinophils # (Manual) 0.33 (0-0.50) K/uL Basophils # (Manual) 0.25 H (0-0.2) K/uL Metamyelocytes # (Man) 0.08 H (0-0) K/uL Large Granular Lymphs 35 % # Lrg Granular Lymphs 2.92 K/uL Sodium 141 (136-145) mmol/L Potassium 3.7 (3.5-5.1) mmol/L Chloride 109 H (98-107) mmol/L Carbon Dioxide 17 L (21-32) mmol/L Anion Gap 15 H (3-11) BUN 9 (6-23) mg/dl Creatinine 0.70 (0.6-1.2) mg/dl Est Cr Clr Drug Dosing Not Reportable Est GFR ( Amer) 111.5 ml/min Est GFR (Non-Af Amer) 96.2 ml/min BUN/Creatinine Ratio 12.9 (10-20) Glucose 230 H (70-99(Fasting)) mg/dl Calcium 9.5 (8.5-10.1) mg/dl Total Bilirubin 0.3 (0.2-1.0) mg/dl AST 76 H (13-39) U/L ALT 84 H (7-52) U/L Alkaline Phosphatase 125 H (34-104) U/L Total Protein 8.1 (6.0-8.3) gm/dl Albumin 4.6 (3.4-5.0) gm/dl Globulin 3.5 (2.5-4.0) gm/dl Albumin/Globulin Ratio 1.3 (0.9-2) HCG, Qual (Negative) Ethyl Alcohol mg/dL 345.2 H (<10.0) mg/dl SARS-CoV-2, RNA, NAAT (NEGATIVE) 11/20/22 11/20/22 Range/Units 17:10 18:42 WBC (4.8-10.8) K/ul RBC (4.20-5.40) M/uL Hgb (12.0-16.0) g/dl Hct (37.0-47.0) % MCV (80.0-100.0) fL MCH (25.0-34.0) pg MCHC (32.0-36.0) g/dL RDW Std Deviation (36.4-46.3) fL RDW Coeff of Joyce (11.5-14.5) % Plt Count (130-400) K/uL MPV (9.4-12.4) fL Neutrophils % (Manual) % Lymphocytes % (Manual) % Monocytes % (Manual) % Eosinophils % (Manual) % Basophils % (Manual) % Metamyelocytes % (Man) % Neutrophils # (Manual) (1.40-6.50) K/uL Total Absolute Neuts (1.4-6.5) K/uL Lymphocytes # (Manual) (1.2-3.4) K/uL Total Abs Lymphocytes (1.2-3.4) K/uL Monocytes # (Manual) (0.11-0.59) K/uL Eosinophils # (Manual) (0-0.50) K/uL Basophils # (Manual) (0-0.2) K/uL Metamyelocytes # (Man) (0-0) K/uL Large Granular Lymphs % # Lrg Granular Lymphs K/uL Sodium (136-145) mmol/L Potassium (3.5-5.1) mmol/L Chloride (98-107) mmol/L Carbon Dioxide (21-32) mmol/L Anion Gap (3-11) BUN (6-23) mg/dl Creatinine (0.6-1.2) mg/dl Est Cr Clr Drug Dosing Est GFR ( Amer) ml/min Est GFR (Non-Af Amer) ml/min BUN/Creatinine Ratio (10-20) Glucose (70-99(Fasting)) mg/dl Calcium (8.5-10.1) mg/dl Total Bilirubin (0.2-1.0) mg/dl AST (13-39) U/L ALT (7-52) U/L Alkaline Phosphatase (34-104) U/L Total Protein (6.0-8.3) gm/dl Albumin (3.4-5.0) gm/dl Globulin (2.5-4.0) gm/dl Albumin/Globulin Ratio (0.9-2) HCG, Qual Negative (Negative) Ethyl Alcohol mg/dL (<10.0) mg/dl SARS-CoV-2, RNA, NAAT POSITIVE A* (NEGATIVE) Administered Medications Discontinued Medications Haloperidol Lactate (Haloperidol Lactate 5 Mg/Ml 1 Ml Vial) 5 mg IM NOW STA Stop: 11/20/22 16:55 Last Admin: 11/20/22 16:59 Dose: 5 mg Documented By: [employer] Lorazepam (Lorazepam 2 Mg/1 Ml Vial) 2 mg IV NOW STA Stop: 11/20/22 16:55 Last Admin: 11/20/22 16:59 Dose: 2 mg Documented By: [employer] Discharge Plan Visit Data Chief Complaint: Altered Mental Status ED Provider: Juan J Escalante Discharge Problem: Alcohol intoxication, Altered mental status Patient Disposition: Being Evaluated by Hospitalist Forms Stand Alone Forms: My [facility] Prescriptions Prescriptions: No Action (DME) Oxygen Home Liters Per Minute See Rx Instructions .MEDSUPPLY Qty: 1 0RF Rx Instructions: Please get patient set up for oxygen, concentrator, poc, ok to do necessary testing, necessary supplies, lifetime need. atorvastatin 80 mg tablet 80 mg PO QAM Qty: 90 3RF magnesium oxide 400 mg (241.3 mg magnesium) tablet 400 mg PO BID Qty: 60 5RF amlodipine 5 mg tablet 10 mg PO DAILY Qty: 60 5RF diclofenac sodium 1 % gel 2 g TOP QID PRN (Reason: Pain) Qty: 100 3RF aspirin 81 mg tablet,delayed release (DR/EC) 81 mg PO DAILY Qty: 90 1RF metformin 500 mg tablet extended release 24 hr 1,000 mg PO BID Qty: 180 3RF montelukast [Singulair] 10 mg tablet 10 mg PO HS Qty: 90 1RF naproxen 500 mg tablet 500 mg PO BID PRN (Reason: pain) Qty: 180 3RF ropinirole 1 mg tablet 1 mg PO HS Qty: 30 11RF (DME) OneTouch Verio test strips Strip See Rx Instructions .Route Qty: 100 3RF Rx Instructions: test daily (DME) lancets [OneTouch Delica Lancets] 33 gauge misc See Rx Instructions .Route Qty: 100 3RF Rx Instructions: test daily ondansetron 4 mg tablet,disintegrating 4 mg PO Q8H PRN (Reason: nausea and vomiting) Qty: 30 5RF ipratropium-albuterol 0.5 mg-3 mg(2.5 mg base)/3 mL solution for nebulization 3 ml inhalation Q4H PRN (Reason: wheezing) Qty: 180 5RF pantoprazole 40 mg tablet,delayed release (DR/EC) 40 mg PO BID Qty: 180 3RF hydrocodone-acetaminophen 5-325 mg tablet 2 tab PO Q6H PRN (Reason: pain) Qty: 120 0RF Rx Instructions: Must last 15 days. cyclobenzaprine 10 mg tablet 10 mg PO TID PRN (Reason: muscle spasm) Qty: 90 1RF Centrum Complete 18-400 mg-mcg tablet 1 tab PO QAM (DME) nebulizers Misc See Rx Instructions miscellaneous .MEDSUPPLY Qty: 1 0RF Rx Instructions: Use 4 x a day or as directed. Lifetime need. glimepiride 4 mg tablet 4 mg PO DAILY Qty: 30 2RF sodium chloride 7 % solution for nebulization 4 ml inhalation BID Qty: 240 5RF albuterol sulfate 90 mcg/actuation HFA aerosol inhaler 2 puff INHALATION 6XD PRN (Reason: Wheezing) Qty: 8.5 3RF fluticasone propionate [Flonase Allergy Relief] 50 mcg/actuation spray,suspension 1 spray INTNAS QAM PRN (Reason: Nasal Congestion) Qty: 16 11RF Rx Instructions: administer into each nostril furosemide [Lasix] 40 mg tablet 40 mg PO DAILY Qty: 3 0RF melatonin 10 mg Tablet 10 mg PO HS PRN (Reason: Sleep) polyethylene glycol 3350 17 gram/dose powder 17 g PO QAM Trelegy Ellipta 200-62.5-25 mcg blister with device 1 inh inhalation QAM calcium polycarbophil [Fiber (calcium polycarbophil)] 625 mg Tablet 3,129 mg PO QAM docusate sodium [Colace] 100 mg Capsule 300 mg PO BID cinnamon bark [Cinnamon] 500 mg Capsule 500 mg PO QAM Probiotic 15 billion cell Capsule 30 cap PO QAM (DME) lancing device with lancets [[employer]co inTouch Delica Lanc Device] Kit See Rx Instructions .Route Qty: 1 0RF Rx Instructions: As directed - check blood sugars twice daily. (DME) blood-glucose meter [OneTouch Verio Meter] [facility] [place] See Rx Instructions .ROUTE .MEDSUPPLY Qty: 1 0RF Rx Instructions: test 2 times daily (DME) lancets [[employer]Touch Delica Plus Lancet] 30 gauge [facility] [place] See Rx Instructions .ROUTE .MEDSUPPLY Qty: 100 0RF Rx Instructions: As directed - check sugars twice daily guaifenesin [Mucinex] 600 mg tablet extended release 12hr 600 mg PO Q12H PRN (Reason: Congestion) gabapentin 600 mg Tablet 600 mg PO HS Qty: 0 0RF gabapentin 300 mg Capsule 300 mg PO QDL Qty: 0 0RF Rybelsus 3 mg tablet 3 mg PO DAILY Rybelsus 7 mg tablet 7 mg PO UD Rx Instructions: SUSPENDED AT PRESENT--NO PHARMACY HAS IN STOCK Referrals Referrals: Tyrell Mancini MD [Primary Care Provider] -
[2022-11-20 17:39] LABS: Hemoglobin 15.2 g/dl (12.0-16.0); Mean Corpuscular Hemoglobin 29.1 pg (25.0-34.0); Mean Corpuscular Hgb Conc 33.8 g/dL (32.0-36.0); Mean Corpuscular Volume 86.2 fL (80.0-100.0); Mean Platelet Volume 9.9 fL (9.4-12.4); Platelet Count 254 K/uL (130-400); RDW Coefficient of Variation 13.6 % (11.5-14.5); RDW Standard Deviation 42.6 fL (36.4-46.3); Red Blood Count 5.22 M/uL (4.20-5.40); White Blood Count 8.33 K/ul (4.8-10.8)
[2022-11-20 17:51] LABS: Pregnancy Test, Serum Negative (Negative)
[2022-11-20 17:53] LABS: Albumin Level 4.6 gm/dl (3.4-5.0); Anion Gap 15 (3-11); Bilirubin,Total 0.3 mg/dl (0.2-1.0); Calcium 9.5 mg/dl (8.5-10.1); Carbon Dioxide 17 mmol/L (21-32); Chloride 109 mmol/L (98-107); Potassium 3.7 mmol/L (3.5-5.1); Sodium 141 mmol/L (136-145)
[2022-11-20 17:59] LABS: Alanine Aminotransferase 84 U/L (7-52); Albumin Globulin Ratio 1.3 (0.9-2); Alkaline Phosphatase 125 U/L (34-104); Aspartate Aminotransferase 76 U/L (13-39); BUN Creatinine Ratio 12.9 (10-20); Blood Urea Nitrogen 9 mg/dl (6-23); Est GFR (African American) 111.5 ml/min; Est GFR (Non-African American) 96.2 ml/min; Globulin 3.5 gm/dl (2.5-4.0); Glucose 230 mg/dl (70-99(Fasting)); Total Protein 8.1 gm/dl (6.0-8.3)
[2022-11-20 18:03] LABS: ALC (manual) 4.58 K/uL (1.2-3.4); ANC (manual) 2.33 K/uL (1.4-6.5); Basophils # (manual) 0.25 K/uL (0-0.2); Basophils % (manual) 3 %; Eosinophils # (manual) 0.33 K/uL (0-0.50); Eosinophils % (manual) 4 %; Large Granular Lymph # (manua 2.92 K/uL; Large Granular Lymph % (manual) 35 %; Lymphocytes # (manual) 1.67 K/uL (1.2-3.4); Lymphocytes % (manual) 20 %; Metamyelocytes # (manual) 0.08 K/uL (0-0); Metamyelocytes % (manual) 1 %; Monocytes # (manual) 0.83 K/uL (0.11-0.59); Monocytes % (manual) 10 %; Neutrophils # (manual) 2.33 K/uL (1.40-6.50); Neutrophils % (manual) 28 %
--- NOTE | 2022-11-20 18:56 | History & Physical Report ---
Date of Service November 20, 2022 Assessment & Plan (1) Alcohol intoxication: Plan: Monitor for alcohol withdrawal although low suspicion of this since she was just here and presumable just drank alcohol when History of Present Illness Primary Care Provider: Tyrell Mancini MD Pippa Schmitt is a 57 year old female who Allergies Allergy/AdvReac Type Severity Reaction Status Date / Time house dust Allergy Intermediate Difficulty Verified 11/20/22 18:42 Breathing mold Allergy Intermediate ASTHMA Verified 11/20/22 18:42 ATTACK Home Medications Medication Instructions Recorded Confirmed Type melatonin 10 mg tablet 10 mg PO HS PRN Sleep 07/05/18 11/20/22 History multivitamin-ferrous 1 tab PO QAM 09/21/19 11/20/22 History fumarate-folic acid 18 mg-400 mcg tablet (Centrum Complete) polyethylene glycol 3350 17 17 g PO QAM 06/11/20 11/20/22 History gram/dose oral powder sodium chloride 7 % for 4 ml inhalation BID #240 mL 08/28/20 11/20/22 Rx nebulization Oxygen Home #1 ea 02/04/21 11/20/22 Rx nebulizers #1 ea 05/06/21 11/20/22 Rx fluticasone fur. 200 mcg-umeclid 1 inh inhalation QAM interstitial 06/21/21 11/20/22 History 62.5 mcg-vilant 25 mcg lung disease inhalat.powder (Trelegy Ellipta) Lactobacillus acidophilus and 30 cap PO QAM 08/04/21 11/20/22 History rhamnosus 15 billion cell capsule (Probiotic) calcium polycarbophil 625 mg 3,129 mg PO QAM 08/04/21 11/20/22 History tablet (Fiber (calcium polycarbophil)) cinnamon bark 500 mg capsule 500 mg PO QAM 08/04/21 11/20/22 History (Cinnamon) docusate sodium 100 mg capsule 300 mg PO BID 08/04/21 11/20/22 History (Colace) atorvastatin 80 mg tablet 80 mg PO QAM #90 tabs 12/19/21 11/20/22 Rx amlodipine 5 mg tablet 10 mg PO DAILY #60 tabs 04/25/22 11/20/22 Rx magnesium oxide 400 mg (241.3 mg 400 mg PO BID #60 tabs 04/25/22 11/20/22 Rx magnesium) tablet diclofenac sodium 1 % topical gel 2 g topical QID PRN Pain #100 grams 05/16/22 11/20/22 Rx aspirin 81 mg tablet,delayed 81 mg PO DAILY #90 tabs 06/17/22 11/20/22 Rx release albuterol sulfate 90 mcg/actuation 2 puff inhalation 6XD PRN Wheezing 07/22/22 11/20/22 Rx aerosol inhaler #8.5 grams fluticasone propionate 50 1 spray intranasal QAM PRN Nasal 07/22/22 11/20/22 Rx mcg/actuation nasal Congestion #16 grams spray,suspension (Flonase Allergy Relief) blood-glucose meter (Vringouch #1 ea 09/19/22 11/20/22 Rx Verio Meter) lancets 30 gauge ([employer] #100 ea 09/19/22 11/20/22 Rx Plus Lancet) lancing device with lancets kit #1 ea 09/19/22 11/20/22 Rx ([employer] Lancing Device kit) metformin 500 mg tablet,extended 1,000 mg PO BID #180 tabs 10/02/22 11/20/22 Rx release 24 hr glimepiride 4 mg tablet 4 mg PO DAILY #30 tabs 10/04/22 11/20/22 Rx guaifenesin 600 mg tablet, 600 mg PO Q12H PRN Congestion 10/04/22 11/20/22 History extended release 12 hr (Mucinex) furosemide 40 mg tablet (Lasix) 40 mg PO DAILY #3 tabs 10/20/22 11/20/22 Rx montelukast 10 mg tablet 10 mg PO HS #90 tabs 10/20/22 11/20/22 Rx (Singulair) naproxen 500 mg tablet 500 mg PO BID PRN pain #180 tabs 10/27/22 11/20/22 Rx ropinirole 1 mg tablet 1 mg PO HS #30 tabs 10/27/22 11/20/22 Rx gabapentin 300 mg capsule 300 mg PO QDL #0 caps 10/29/22 11/20/22 Rx gabapentin 600 mg tablet 600 mg PO HS #0 tabs 10/29/22 11/20/22 Rx blood sugar diagnostic (MydishTouch #100 ea 10/31/22 11/20/22 Rx Verio test strips) lancets 33 gauge (OneTouch [employer] #100 ea 10/31/22 11/20/22 Rx Lancets) ondansetron 4 mg disintegrating 4 mg PO Q8H PRN nausea and 11/03/22 11/20/22 Rx tablet vomiting #30 tabs ipratropium 0.5 mg-albuterol 3 mg 3 ml inhalation Q4H PRN wheezing 11/07/22 11/20/22 Rx (2.5 mg base)/3 mL nebulization #180 mL soln pantoprazole 40 mg tablet,delayed 40 mg PO BID #180 tabs 11/10/22 11/20/22 Rx release cyclobenzaprine 10 mg tablet 10 mg PO TID PRN muscle spasm #90 11/17/22 11/20/22 Rx tabs hydrocodone 5 mg-acetaminophen 325 2 tab PO Q6H PRN pain #120 tabs 11/17/22 11/20/22 Rx mg tablet semaglutide 3 mg tablet (Rybelsus) 3 mg PO DAILY 11/18/22 11/20/22 History semaglutide 7 mg tablet (Rybelsus) 7 mg PO UD 11/18/22 11/20/22 History Past Med/Surg History Medical History Acute pancreatitis Admitted April 2021- had MRCP at that time- recommended EUS six weeks from [place] admission Aggressive behavior AMS (altered mental status) Anxiety Asthma with exacerbation last used inhaler yesterday Candidiasis of mouth and esophagus Chronic constipation COPD (chronic obstructive pulmonary disease) Depression Diabetes type 2, uncontrolled Hgb A1C 04/25/21 was 7.0 Dysphagia DIFFICULTY SWALLOWING MEDS Foot pain rt tendon "problems" GERD (gastroesophageal reflux disease) Hiatal hernia History of ARDS 2009 (ADMITTED TO [facility] [place]) (SECONDARY TO H1N1 INFECTION)- CONTINUES ON SUPPLEMENTAL OXYGEN History of congestive heart failure 2019 History of ETOH abuse last drink 05-20-20 History of Guillain-[place] syndrome DX'D 2009 History of pulmonary embolism 2008 per PCP records - no AC HTN (hypertension) Hypokalemia Interstitial lung disease Follows with pulm Lumbar degenerative disc disease Lumbar radiculopathy Mood disorder On home oxygen therapy 2-3L O2 WITH EXERTION AND AT HS Post traumatic stress disorder Pulmonary HTN Restless leg syndrome Vaginitis Surgical History History of anesthesia reaction "I HAVE A HARD TIME BREATHING AFTER ANESTHESIA" History of colonoscopy 2020 History of esophagogastroduodenoscopy (EGD) History of laparoscopic cholecystectomy History of radiofrequency ablation procedure for cardiac arrhythmia 2006-NO F/U CARDIOLOGY History of sinus surgery History of tracheostomy resolved History of tracheostomy Hx H1N1 in 2008 with prolonged intubation and mechanical ventilation for 8 months per patient 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 Family History Grandmother (Paternal) Family history of diabetes mellitus Mother , age 81 of uncertain causes No problems noted. Father , early 50s of lymphoma Lymphoma Other No family history of adverse response to anesthesia No significant family history Social History Smoking Status: Unknown if ever smoked Second Hand Exposure: No; Hx Alcohol Use: Yes Alcohol type: beer Hx Substance Use: No Preferred Language: Amharic Communication Ability: Effective Visual Impairment: No Limitations Learn To Swim Instructor Required: No Beliefs That Will Affect Care: None marital status: Single Current Living Situation: Alone and Homeless Current Living Situation Comment: pt is living at [address] currently homeless she states current occupational status: disabled 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 How many Children do You have: 0 Feels Safe at Home: Yes Gender Identity: Female Assistive Devices: None Results & Data Results & Data ([facility]) Vital Signs (Past 12 Hours) Vital Signs Pulse Pulse Resp BP BP Pulse Ox O2 Del Method 11/20/22 18:30 103 H 16 98 11/20/22 18:20 112 H 39 H 95 11/20/22 18:10 120 H 15 94 11/20/22 18:00 110 H 20 92 11/20/22 18:00 124/73 11/20/22 17:50 117 H 22 95 11/20/22 17:40 123 H 26 H 93 11/20/22 17:30 119 H 19 90 11/20/22 17:30 132/79 11/20/22 17:20 103 H 21 98 11/20/22 17:14 127/75 11/20/22 17:14 109 H 25 H 96 11/20/22 17:11 130/87 11/20/22 17:11 114 H 30 H 94 11/20/22 17:10 118 H 32 H 95 11/20/22 17:00 124 H 26 H 91 11/20/22 16:50 121 H 29 H 93 11/20/22 16:46 119 H 30 H 92 11/20/22 17:15 109 H 25 H 127/75 95 Room Air 11/20/22 17:00 121 H 26 H 130/87 88 L Room Air 11/20/22 16:58 Nasal Cannula 11/20/22 16:54 122 H 11/20/22 16:35 119 H 24 150/112 H 89 L Room Air O2 Flow Rate 11/20/22 18:30 11/20/22 18:20 11/20/22 18:10 11/20/22 18:00 11/20/22 18:00 11/20/22 17:50 11/20/22 17:40 11/20/22 17:30 11/20/22 17:30 11/20/22 17:20 11/20/22 17:14 11/20/22 17:14 11/20/22 17:11 11/20/22 17:11 11/20/22 17:10 11/20/22 17:00 11/20/22 16:50 11/20/22 16:46 11/20/22 17:15 11/20/22 17:00 11/20/22 16:58 2 11/20/22 16:54 11/20/22 16:35 Code Status & VTE Plan VTE Prophylaxis Plan VTE Prophylaxis will be ordered: Yes PG Care Time/CCT Total # of Minutes Spent Total Time Spent with Patient: Total time spent is greater than 50% in coordination of care (as documented) at patient's floor/unit and/or counseling patient: Coding Diagnoses Alcohol intoxication F10.929
[2022-11-20] MEDS ORDERED: GLUCOSE 40% GEL 15 GM TUBE PO PRN (20:07)
[2022-11-20] MEDS ORDERED: CARBOHYDRATES FOR HYPOGLYCEMIA PO PRN (20:07)
[2022-11-20] MEDS ORDERED: DEXTROSE 50% 50 ML SYRINGE IV PRN (20:07)
[2022-11-20] MEDS ORDERED: GLUCAGON FOR INJ 1 MG VIAL SQ PRN (20:07)
[2022-11-20] MEDS ORDERED: GLUCOSE 10 TAB/TUBE PO PRN (20:07)
[2022-11-20] MEDS: INSULIN ASPART PER UNIT SC SCH (20:19)
[2022-11-20] MEDS ORDERED: HALOPERIDOL LACTATE 5 MG/ML 1 ML VIAL IM PRN (20:34)
--- NOTE | 2022-11-20 20:42 | History & Physical Report ---
Date of Service November 20, 2022 Assessment & Plan (1) Alcohol intoxication: Plan: -Admit to med/sure -The patient is currently afebrile, hemodynamically stable, and stable on her baseline 2-3L NC -The patient was just discharged this afternoon from [facility] for alcohol in toxication, she then went and drank an unknown quantity of alcohol -Alcohol level today is 345, will add on urine drug panel and UA for further evaluation -No focal neuro defects on exam, she was noted to have an AG of 15 with bicarb of 17, this is likely due to alcohol intoxication and lack of proper oral food intake -S/P 5 mg IM haldol and 2 mg IV ativan in the ED -Continue seizure precautions for now , fall precautions added -QTc today is 490, improved from 520 on 11/18 -Will add on 2.5 mg IV haldol q6h prn agitation -Will order AM alcohol level -Was ordered 1L NSS in the ED but did not receive due to delay with IV access. Will hold NSS and give 1L LR bolus STAT followed by LR at 100 mL/hr x 2 bags -Case management and Psychiatry consults placed as the patient has complex psychiatric and social barriers -BL SCD's for DVT PPX tonight, if less agitated tomorrow can start chemical PPX as well -AM CBC, CMP, Mag, Phos, and alcohol levels -Hold sedating medications tonight including cyclobenzaprine, gabapentin, hydrocodone/acetaminophen, will need to monitor for any signs of withdrawal -Monitor for withdrawal as she begins to sober over the course of her admission (2) Mood disorder: Plan: -Does not appear to be on any medications for mood disorder, depression, or anxiety -Psychiatry consult placed (3) COPD (chronic obstructive pulmonary disease): Plan: -Stable on baseline 2-3L NC -Conitnue home breathing treatments, DuoNebs QID, incentive spirometry, flutter therapy, prn robitussin -O2 order placed to keep SpO2 level between 88-92% (4) COVID-19: Plan: -See COPD -Stable on Baseline O2, no need for treatment at this time (5) GERD (gastroesophageal reflux disease): Plan: -IV Protonix 40 mg daily for now (6) Restless leg syndrome: Plan: -Hold Requip for to avoid over sedation (7) Dyslipidemia: Plan: -Conitnue statin (8) Diabetes type 2, uncontrolled: Plan: -Hold oral medications -Monitor BSG q6h for now, goal is 110-140 -Lantus 5 units BID, Correction factor of 50 with carb ratio of 15 -Start clear liquid diet for now, can advance when less altered (9) Hypertension: Plan: -Stable -Continue amlodipine, hold lasix for now (10) Elevated LFTs: Plan: -Still elevated -Likely due to alcoholism and possible due to her acute covid infection as well -Can consider Abdominal US tomorrow when less agitated and more cooperative -Continue to trend daily Plan The patient was discussed with Dr. Garcia at the time of the admission History of Present Illness Chief Complaint: AMS Primary Care Provider: Tyrell Mancini MD Pippa Schmitt is a 57-year-old female with history of restrictive lung disease secondary to pulmonary fibrosis from H1 N1 influenza infection in 2008 with traction bronchiectasis on home oxygen 2 to 3 L, alcohol abuse, history of PE in 2008 (not on anticoagulation), diabetes, hypertension, GERD, RLS, and dyslipidemia who presented to the [facility] ED on 11/20/22 via EMS for AMS. The patient was just discharged from the Hospital medicine service earlier today. She was admitted on 11/18/22 with AMS found to be caused by alcohol intoxication. She was incidentally found to be covid + at that time but remained stable on her baseline 2-3L throughout her admission. Her AMS mental status resolved with supportive care. In the ED today the patient was found to be afebrile, hemodynamically stable, and stable on her baseline 2-3L NC. Labs were significant for a CBC WNL, stable cr at 0.70, chloride of 109 otherwise stable electrolytes, glucose of 230, Ast of 76 (increased from 56 this am), ALT of 84 (increased from 72 this am), and Alk phos of 125 (increased from this am), alcohol level of 345, and still Covid 19 +. Xray of the left hand was read as "Soft tissue swelling without acute osseous abnormality.". Chest xray has yet to be read officially but on my evaluation she is without pneumothorax, focal consolidations, pleural effusions, and significant pulmonary edema. Prior to admission the patient was given 5 mg IM haldol, 2 mg IV ativan, and was ordered 1L NSS bolus. At the time of the exam the patient was lying in bed, yelling that her blood sugar needs to be check. She quickly calmed down when I began speaking with her. I explained that I admitted her two days ago and we will be checking her blood sugar shortly. I asked what happened earlier today after she was discharged and she states that "I drank half a can of alcohol". She was unable to described the exact quantity and type of alcohol. She states that she has Covid and is going to . I explained that she does have Covid but that all of her vitals are stable and she's stable on her baseline O2. When asked if she had any pain she pointed to her left hand which is currently bruised. I explained that she got an xray of the hand and there are no broken bones. Please refer to Dr. Garcia's attestation for any changes to the treatment plan Allergies Allergy/AdvReac Type Severity Reaction Status Date / Time house dust Allergy Intermediate Difficulty Verified 11/20/22 18:42 Breathing mold Allergy Intermediate ASTHMA Verified 11/20/22 18:42 ATTACK Home Medications Medication Instructions Recorded Confirmed Type melatonin 10 mg tablet 10 mg PO HS PRN Sleep 07/05/18 11/20/22 History multivitamin-ferrous 1 tab PO QAM 09/21/19 11/20/22 History fumarate-folic acid 18 mg-400 mcg tablet (Centrum Complete) polyethylene glycol 3350 17 17 g PO QAM 06/11/20 11/20/22 History gram/dose oral powder sodium chloride 7 % for 4 ml inhalation BID #240 mL 08/28/20 11/20/22 Rx nebulization Oxygen Home #1 ea 02/04/21 11/20/22 Rx nebulizers #1 ea 05/06/21 11/20/22 Rx fluticasone fur. 200 mcg-umeclid 1 inh inhalation QAM interstitial 06/21/21 11/20/22 History 62.5 mcg-vilant 25 mcg lung disease inhalat.powder (Trelegy Ellipta) Lactobacillus acidophilus and 30 cap PO QAM 08/04/21 11/20/22 History rhamnosus 15 billion cell capsule (Probiotic) calcium polycarbophil 625 mg 3,129 mg PO QAM 08/04/21 11/20/22 History tablet (Fiber (calcium polycarbophil)) cinnamon bark 500 mg capsule 500 mg PO QAM 08/04/21 11/20/22 History (Cinnamon) docusate sodium 100 mg capsule 300 mg PO BID 08/04/21 11/20/22 History (Colace) atorvastatin 80 mg tablet 80 mg PO QAM #90 tabs 12/19/21 11/20/22 Rx amlodipine 5 mg tablet 10 mg PO DAILY #60 tabs 04/25/22 11/20/22 Rx magnesium oxide 400 mg (241.3 mg 400 mg PO BID #60 tabs 04/25/22 11/20/22 Rx magnesium) tablet diclofenac sodium 1 % topical gel 2 g topical QID PRN Pain #100 grams 05/16/22 11/20/22 Rx aspirin 81 mg tablet,delayed 81 mg PO DAILY #90 tabs 06/17/22 11/20/22 Rx release albuterol sulfate 90 mcg/actuation 2 puff inhalation 6XD PRN Wheezing 07/22/22 11/20/22 Rx aerosol inhaler #8.5 grams fluticasone propionate 50 1 spray intranasal QAM PRN Nasal 07/22/22 11/20/22 Rx mcg/actuation nasal Congestion #16 grams spray,suspension (Flonase Allergy Relief) blood-glucose meter (Danforth Pewterersuch #1 ea 09/19/22 11/20/22 Rx Verio Meter) lancets 30 gauge ([employer]ale CommunicationsTouch Skybox Security #100 ea 09/19/22 11/20/22 Rx Plus Lancet) lancing device with lancets kit #1 ea 09/19/22 11/20/22 Rx ([employer] Lancing Device kit) metformin 500 mg tablet,extended 1,000 mg PO BID #180 tabs 10/02/22 11/20/22 Rx release 24 hr glimepiride 4 mg tablet 4 mg PO DAILY #30 tabs 10/04/22 11/20/22 Rx guaifenesin 600 mg tablet, 600 mg PO Q12H PRN Congestion 10/04/22 11/20/22 History extended release 12 hr (Mucinex) furosemide 40 mg tablet (Lasix) 40 mg PO DAILY #3 tabs 10/20/22 11/20/22 Rx montelukast 10 mg tablet 10 mg PO HS #90 tabs 10/20/22 11/20/22 Rx (Singulair) naproxen 500 mg tablet 500 mg PO BID PRN pain #180 tabs 10/27/22 11/20/22 Rx ropinirole 1 mg tablet 1 mg PO HS #30 tabs 10/27/22 11/20/22 Rx gabapentin 300 mg capsule 300 mg PO QDL #0 caps 10/29/22 11/20/22 Rx gabapentin 600 mg tablet 600 mg PO HS #0 tabs 10/29/22 11/20/22 Rx blood sugar diagnostic (OneTouch #100 ea 10/31/22 11/20/22 Rx Verio test strips) lancets 33 gauge (OneTouch Delica #100 ea 10/31/22 11/20/22 Rx Lancets) ondansetron 4 mg disintegrating 4 mg PO Q8H PRN nausea and 11/03/22 11/20/22 Rx tablet vomiting #30 tabs ipratropium 0.5 mg-albuterol 3 mg 3 ml inhalation Q4H PRN wheezing 11/07/22 11/20/22 Rx (2.5 mg base)/3 mL nebulization #180 mL soln pantoprazole 40 mg tablet,delayed 40 mg PO BID #180 tabs 11/10/22 11/20/22 Rx release cyclobenzaprine 10 mg tablet 10 mg PO TID PRN muscle spasm #90 11/17/22 11/20/22 Rx tabs hydrocodone 5 mg-acetaminophen 325 2 tab PO Q6H PRN pain #120 tabs 11/17/22 11/20/22 Rx mg tablet semaglutide 3 mg tablet (Rybelsus) 3 mg PO DAILY 11/18/22 11/20/22 History semaglutide 7 mg tablet (Rybelsus) 7 mg PO UD 11/18/22 11/20/22 History Past Med/Surg History Medical History Acute pancreatitis Admitted April 2021- had MRCP at that time- recommended EUS six weeks from April admission Aggressive behavior AMS (altered mental status) Anxiety Asthma with exacerbation last used inhaler yesterday Candidiasis of mouth and esophagus Chronic constipation COPD (chronic obstructive pulmonary disease) Depression Diabetes type 2, uncontrolled Hgb A1C 04/25/21 was 7.0 Dysphagia DIFFICULTY SWALLOWING MEDS Foot pain rt tendon "problems" GERD (gastroesophageal reflux disease) Hiatal hernia History of ARDS 2009 (ADMITTED TO [facility] TO [address]) (SECONDARY TO H1N1 INFECTION)- CONTINUES ON SUPPLEMENTAL OXYGEN History of congestive heart failure 2019 History of ETOH abuse last drink 05-20-20 History of Guillain-[place] syndrome DX'D 2009 History of pulmonary embolism 2008 per PCP records - no AC HTN (hypertension) Hypokalemia Interstitial lung disease Follows with pulm Lumbar degenerative disc disease Lumbar radiculopathy Mood disorder On home oxygen therapy 2-3L O2 WITH EXERTION AND AT HS Post traumatic stress disorder Pulmonary HTN Restless leg syndrome Vaginitis Surgical History History of anesthesia reaction "I HAVE A HARD TIME BREATHING AFTER ANESTHESIA" History of colonoscopy 2019 History of esophagogastroduodenoscopy (EGD) History of laparoscopic cholecystectomy History of radiofrequency ablation procedure for cardiac arrhythmia 2005-NO F/U CARDIOLOGY History of sinus surgery History of tracheostomy resolved History of tracheostomy Hx H1N1 in 2008 with prolonged intubation and mechanical ventilation for 8 months per patient 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 Family History Grandmother (Paternal) Family history of diabetes mellitus Mother , age 81 of uncertain causes No problems noted. Father , early 50s of lymphoma Lymphoma Other No family history of adverse response to anesthesia No significant family history Social History Smoking Status: Unknown if ever smoked Second Hand Exposure: No; Hx Alcohol Use: Yes Alcohol type: beer Hx Substance Use: No Preferred Language: Zimbabwean Communication Ability: Effective Visual Impairment: No Limitations [employer] Work[employer] Required: No Beliefs That Will Affect Care: None marital status: Single Current Living Situation: Alone and Homeless Current Living Situation Comment: pt is living at [address] currently homeless she states current occupational status: disabled 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 Physical Exam Physical Exam: Physical Exam: General:In no acute distress, poor hygiene, non-toxic appearing HEENT:Normocephalic, atraumatic, no scleral icterus, pupils around round, sy mmetrical, and reactive to light, dry mucus, trachea midline, no thyromegaly Chest/Pulm:No respiratory distress, symmetrical chest expansion, expiratory wheezing noted throughout but no focal consolidations noted Cardiac:RRR, no murmurs noted Abdomen:Negative for ascites and bruising, normoactive bowel sounds, soft, non-tender to palpation throughout Musculoskeletal:The dorsal aspect of the left hand is bruised but without c repitus on exam, Symmetrical and without signs of other acute trauma, upper and lower extremities without tenderness to palpation, no tenderness to palpation of the head, neck, back, and pelvis Extremities:Radial, dorsalis pedis, and posterior tibial pulses are intact and symmetrical, no edema noted in the BL LE's Skin:Warm, dry, no rashes , lesions, or scars noted Neuro: Currently alert and oriented to person only, no focal defects, CN II- XII tested and intact, symmetrical strength in the BL upper and lower extremities, no tremors noted Psych:Waxing and waning mood which changes from calm to agitated and tearful, easy to redirect, cooperative during the exam Results & Data Results & Data ([facility]) Vital Signs (Past 12 Hours) Vital Signs Pulse Pulse Resp BP BP Pulse Ox O2 Del Method 11/20/22 19:00 98 H 17 97 11/20/22 19:00 143/76 H 11/20/22 18:50 117 H 23 94 11/20/22 18:40 113 H 25 H 96 11/20/22 18:30 113/86 11/20/22 18:30 103 H 16 98 11/20/22 18:20 112 H 39 H 95 11/20/22 18:10 120 H 15 94 11/20/22 18:00 110 H 20 92 11/20/22 18:00 124/73 11/20/22 17:50 117 H 22 95 11/20/22 17:40 123 H 26 H 93 11/20/22 17:30 119 H 19 90 11/20/22 17:30 132/79 11/20/22 17:20 103 H 21 98 11/20/22 17:14 127/75 11/20/22 17:14 109 H 25 H 96 11/20/22 17:11 130/87 11/20/22 17:11 114 H 30 H 94 11/20/22 17:10 118 H 32 H 95 11/20/22 17:00 124 H 26 H 91 11/20/22 16:50 121 H 29 H 93 11/20/22 16:46 119 H 30 H 92 11/20/22 17:15 109 H 25 H 127/75 95 Room Air 11/20/22 17:00 121 H 26 H 130/87 88 L Room Air 11/20/22 16:58 Nasal Cannula 11/20/22 16:54 122 H 11/20/22 16:35 119 H 24 150/112 H 89 L Room Air O2 Flow Rate 11/20/22 19:00 11/20/22 19:00 11/20/22 18:50 11/20/22 18:40 11/20/22 18:30 11/20/22 18:30 11/20/22 18:20 11/20/22 18:10 11/20/22 18:00 11/20/22 18:00 11/20/22 17:50 11/20/22 17:40 11/20/22 17:30 11/20/22 17:30 11/20/22 17:20 11/20/22 17:14 11/20/22 17:14 11/20/22 17:11 11/20/22 17:11 11/20/22 17:10 11/20/22 17:00 11/20/22 16:50 11/20/22 16:46 11/20/22 17:15 11/20/22 17:00 11/20/22 16:58 2 11/20/22 16:54 11/20/22 16:35 Laboratory Results Abnormal lab results 11/20/22 11/20/22 11/20/22 Range/Units 17:10 17:10 17:10 Total Abs Lymphocytes 4.58 H (1.2-3.4) K/uL Monocytes # (Manual) 0.83 H (0.11-0.59) K/uL Basophils # (Manual) 0.25 H (0-0.2) K/uL Metamyelocytes # (Man) 0.08 H (0-0) K/uL Chloride 109 H (98-107) mmol/L Carbon Dioxide 17 L (21-32) mmol/L Anion Gap 15 H (3-11) Glucose 230 H (70-99(Fasting)) mg/dl POC Glucose (70-99) mg/dl AST 76 H (13-39) U/L ALT 84 H (7-52) U/L Alkaline Phosphatase 125 H (34-104) U/L Ethyl Alcohol mg/dL 345.2 H (<10.0) mg/dl SARS-CoV-2, RNA, NAAT (NEGATIVE) 11/20/22 11/20/22 Range/Units 18:42 20:16 Total Abs Lymphocytes (1.2-3.4) K/uL Monocytes # (Manual) (0.11-0.59) K/uL Basophils # (Manual) (0-0.2) K/uL Metamyelocytes # (Man) (0-0) K/uL Chloride (98-107) mmol/L Carbon Dioxide (21-32) mmol/L Anion Gap (3-11) Glucose (70-99(Fasting)) mg/dl POC Glucose 119 H (70-99) mg/dl AST (13-39) U/L ALT (7-52) U/L Alkaline Phosphatase (34-104) U/L Ethyl Alcohol mg/dL (<10.0) mg/dl SARS-CoV-2, RNA, NAAT POSITIVE A* (NEGATIVE) Diagnostic Findings XR hand LT min 3V routine HISTORY: 57 years-old Female edema acute left hand pain COMPARISON: None TECHNIQUE: 3 views of the left hand FINDINGS: Mild multifocal osteoarthritis. Demineralized appearance of the bones. No acute fracture, dislocation or opaque foreign body identified. Dorsal hand and wrist soft tissue swelling. IMPRESSION: Soft tissue swelling without acute osseous abnormality. ACT 112: Negative or not required by law. The above report was generated using voice recognition software. It may contain grammatical, syntax or spelling errors. ECG Additional Comments: Sinus tachycardia Inferior infarct (cited on or before 06-MAY-2014) Possible Anterior infarct (cited on or before 06-MAY-2014) Abnormal ECG When compared with ECG of 18-NOV-2022 17:29, No significant change was found Code Status & VTE Plan Code Status Full code VTE Prophylaxis Plan VTE Prophylaxis will be ordered: Yes Supervising Physician Co-Signing Physician Notes I personally saw and examined the patient. I verified all rouse points and agree with Juan J Kamara PA-C with the following exceptions and/or additions: 57 year old female admission for altered mental status and sedation. Discharged earlier today, she reports drinking a can of mixed alcohol to me when she got back to the motel. O/E Alert and orientated to place and time, falls back to sleep easily after awaking by voice, Chest CTAB, HS RRR, no murmurs, Abdo SNT, moves all 4 extremities but not compliant with complete neurological exam A/P Alcohol intoxication and sedation from haloperidol and lorazepam - continue to use haloperidol for agitation when at risk to herself or others. No sign of alcohol withdrawal at this time and low suspicion of this although she recently had lorazepam 2mg IV when seen. Repeat alcohol level in AM. COVID-19 - asymptomatic vs. pre-symptomatic vs. false positive - although given x2 tests positive at this stage suspect it is a true positive test and most likely asymptomatic COVID. CXR similar to previous. PG Care Time/CCT Total # of Minutes Spent Total Time Spent with Patient: Total time spent is greater than 50% in coordination of care (as documented) at patient's floor/unit and/or counseling patient: Coding [place] [address] INT INP/OBS CARE 3/75MIN Patient Type Established Medical Decision Making High Complexity Diagnoses Alcohol intoxication F10.929 Mood disorder F39 COPD (chronic obstructive pulmonary disease) J44.9 COVID-19 U07.1 GERD (gastroesophageal reflux disease) K21.9 Restless leg syndrome G25.81 Dyslipidemia E78.5 Diabetes type 2, uncontrolled E11.65 Hypertension I10 Elevated LFTs R79.89
[2022-11-20] MEDS ORDERED: THIAMINE HCL 500 MG in SODIUM CHLORIDE 0.9% 50 ML IV STA (21:00)
[2022-11-20] MEDS ORDERED: FOLIC ACID 1 MG in SYRINGE 9.8 ML IV STA (21:01)
[2022-11-20] MEDS ORDERED: guaiFENesin SUGAR FREE 200 MG/10 ML UDC PO PRN (21:02)
[2022-11-20] MEDS ORDERED: LACTATED RINGER'S 1,000 ML IV ONE (21:05)
[2022-11-20 21:42] LABS: Appearance Urine Clear (Clear); Bilirubin Urine Negative (Negative); Blood Urine Negative (Negative); Color Urine Yellow; Glucose Urine UA 2+ (Negative); Ketones Urine Negative (Negative); Leukocyte Esterase Urine Negative (Negative); Nitrite Urine Negative (Negative); Protein Urine Negative (Negative); Specific Gravity Urine 1.004 (1.000-1.030); Urobilinogen Urine Negative (Negative); pH Urine 6.5 (4.5-7.5)
[2022-11-20] MEDS ORDERED: MONTELUKAST SODIUM 10 MG TABLET PO SCH (22:03)
[2022-11-20] MEDS ORDERED: SODIUM CHLOR 7% 4 ML NEB INH SCH (22:03)
[2022-11-20] MEDS ORDERED: ALBUTEROL HFA 8 GM INHALER INH PRN (22:03)
[2022-11-20] MEDS ORDERED: guaiFENesin 600 MG TABCR PO PRN (22:03)
[2022-11-20] MEDS ORDERED: ALBUT/IPRATROP 3MG/0.5MG NEB 3 ML VIAL INH PRN (22:03)
[2022-11-20] MEDS: LANTUS PER UNIT CHARGE SQ SCH (22:57)
[2022-11-20 23:14] LABS: Amphetamines+Metham, Urine Neg (Neg); Barbiturates, Urine Neg (Neg); Benzodiazepine, Urine Neg (Neg); Cocaine, Urine Neg (Neg); MDMA (Ecstacy), Urine Neg (Neg); Methadone, Urine Neg (Neg); Opiate, Urine Neg (Neg); Phencyclidine, Urine Neg (Neg)
[2022-11-20] MEDS: MAGNESIUM OXIDE 400 MG TAB PO SCH (23:45)
[2022-11-20] MEDS: DOCUSATE SODIUM 100 MG CAP PO SCH (23:45)
[2022-11-21] MEDS: LACTATED RINGER'S 1,000 ML IV SCH ×2 (00:26→11:09)
[2022-11-21] MEDS: THIAMINE HCL 500 MG in SODIUM CHLORIDE 0.9% 50 ML IV SCH ×2 (05:30→14:22)
--- NOTE | 2022-11-21 07:14 | XRay Report ---
XR chest 1V portable HISTORY: 57 years-old Female sob acute shortness of breath COMPARISON: 11/18/2022 TECHNIQUE: AP view of the chest FINDINGS: Cardiac silhouette is enlarged. Mild right hemidiaphragmatic elevation. No pneumothorax, lobar airspa ce consolidation or large pleural effusion. Chronic interstitial lung disease. Bones appear grossly i ntact. Enteric contrast within the colon. IMPRESSION: Chronic interstitial lung disease without acute process. ACT 112: Negative or not required by law. The above report was generated using voice recognition software. It may contain grammatical, syntax o r spelling errors. Electronically signed by: Johan Fountain M.D. 11/21/2022 7:12 AM
--- NOTE | 2022-11-21 08:03 | Hospitalist Progress Note ---
Date of Service November 21, 2022 Assessment & Plan (1) Alcohol intoxication: Plan: -Admit to med/sure -The patient is currently afebrile, hemodynamically stable, and stable on her baseline 2-3L NC -The patient was just discharged this afternoon from [facility] for alcohol i ntoxication, she then went and drank an unknown quantity of alcohol -Alcohol level today is 345, will add on urine drug panel and UA for further evaluation -No focal neuro defects on exam, she was noted to have an AG of 15 with bicarb of 17, this is likely due to alcohol intoxication and lack of proper oral food intake -S/P 5 mg IM haldol and 2 mg IV ativan in the ED -Continue seizure precautions for now , fall precautions added -QTc today is 490, improved from 520 on 11/18 -Will add on 2.5 mg IV haldol q6h prn agitation -Will order AM alcohol level -Was ordered 1L NSS in the ED but did not receive due to delay with IV access. Will hold NSS and give 1L LR bolus STAT followed by LR at 100 mL/hr x 2 bags -Case management and Psychiatry consults placed as the patient has complex psychiatric and social barriers -BL SCD's for DVT PPX tonight, if less agitated tomorrow can start chemical PPX as well -AM CBC, CMP, Mag, Phos, and alcohol levels -Hold sedating medications tonight including cyclobenzaprine, gabapentin, hydrocodone/acetaminophen, will need to monitor for any signs of withdrawal -Monitor for withdrawal as she begins to sober over the course of her admission (2) Mood disorder: Plan: -Does not appear to be on any medications for mood disorder, depression, or anxiety -Psychiatry consult placed (3) COPD (chronic obstructive pulmonary disease): Plan: -Stable on baseline 2-3L NC -Conitnue home breathing treatments, DuoNebs QID, incentive spirometry, flutter therapy, prn robitussin -O2 order placed to keep SpO2 level between 88-92% (4) COVID-19: Plan: -See COPD -Stable on Baseline O2, no need for treatment at this time (5) GERD (gastroesophageal reflux disease): Plan: -IV Protonix 40 mg daily for now (6) Restless leg syndrome: Plan: -Hold Requip for to avoid over sedation (7) Dyslipidemia: Plan: -Conitnue statin (8) Diabetes type 2, uncontrolled: Plan: -Hold oral medications -Monitor BSG q6h for now, goal is 110-140 -Lantus 5 units BID, Correction factor of 50 with carb ratio of 15 -Start clear liquid diet for now, can advance when less altered (9) Hypertension: Plan: -Stable -Continue amlodipine, hold lasix for now (10) Elevated LFTs: Plan: -Still elevated -Likely due to alcoholism and possible due to her acute covid infection as well -Can consider Abdominal US tomorrow when less agitated and more cooperative -Continue to trend daily Plan The patient was discussed with Dr. Garcia at the time of the admission Admission and Anticipated Discharge Date Admission Date: November 20, 2022 Results & Data Results & Data ([facility]) Vital Signs (Past 12 Hours) Vital Signs Temp Pulse Pulse Resp BP BP Pulse Ox 11/21/22 07:08 36.8 C 99 H 18 127/81 98 11/20/22 21:30 11/20/22 21:55 36.6 C 107 H 18 136/82 97 11/20/22 20:54 11/20/22 20:40 91 H 20 97 11/20/22 20:30 97 H 21 96 11/20/22 20:30 134/101 H 11/20/22 20:20 105 H 17 97 11/20/22 20:10 106 H 19 96 O2 Del Method O2 Flow Rate 11/21/22 07:08 Nasal Cannula 2 11/20/22 21:30 Nasal Cannula 2 11/20/22 21:55 Nasal Cannula 11/20/22 20:54 Nasal Cannula 2 11/20/22 20:40 11/20/22 20:30 11/20/22 20:30 11/20/22 20:20 11/20/22 20:10 PG Care Time/CCT Total # of Minutes Spent Total Time Spent with Patient: Total time spent is greater than 50% in coordination of care (as documented) at patient's floor/unit and/or counseling patient: Coding Diagnoses Alcohol intoxication F10.929 Mood disorder F39 COPD (chronic obstructive pulmonary disease) J44.9 COVID-19 U07.1 GERD (gastroesophageal reflux disease) K21.9 Restless leg syndrome G25.81 Dyslipidemia E78.5 Diabetes type 2, uncontrolled E11.65 Hypertension I10 Elevated LFTs R79.89
[2022-11-21] MEDS: INSULIN ASPART PER UNIT SC SCH ×2 (08:53→12:51)
[2022-11-21] MEDS ORDERED: FOLIC ACID 1 MG in SYRINGE 9.8 ML IV SCH (09:00)
[2022-11-21] MEDS ORDERED: THIAMINE HCL 100 MG in SYRINGE 9 ML IV SCH (09:00)
[2022-11-21] MEDS ORDERED: ASPIRIN 81 MG ECTAB PO SCH (09:00)
[2022-11-21] MEDS ORDERED: POLYETHYLENE (MIRALAX) 17 GM PACK PO SCH (09:00)
[2022-11-21] MEDS ORDERED: amLODIPine BESYLATE 5 MG TAB PO SCH (09:00)
[2022-11-21] MEDS ORDERED: ATORVASTATIN 40 MG TAB PO SCH (09:00)
[2022-11-21] MEDS ORDERED: UMECLIDINIUM/VILANTEROL 62.5/25MCG 7 PUFFS/INHALER INH SCH (09:00)
[2022-11-21] MEDS ORDERED: FLUTICASONE FUROATE 200MCG 14 PUFFS/INHALER INH SCH (09:00)
[2022-11-21] MEDS: LANTUS PER UNIT CHARGE SQ SCH (09:00)
[2022-11-21] MEDS ORDERED: NON-FORMULARY MEDICATION (Fluticasone-Umeclidin-Vilanter [Trelegy Ellipta] 200-62.5-25 mcg INH SCH (09:00)
[2022-11-21] MEDS: MAGNESIUM OXIDE 400 MG TAB PO SCH (09:02)
[2022-11-21] MEDS: DOCUSATE SODIUM 100 MG CAP PO SCH (09:05)
[2022-11-21 09:33] LABS: Hematocrit (blood only) 39.9 % (37.0-47.0); Hemoglobin 13.8 g/dl (12.0-16.0); Mean Corpuscular Hemoglobin 29.1 pg (25.0-34.0); Mean Corpuscular Hgb Conc 34.6 g/dL (32.0-36.0); Mean Corpuscular Volume 84.2 fL (80.0-100.0); Platelet Count 251 K/uL (130-400); RDW Coefficient of Variation 13.5 % (11.5-14.5); RDW Standard Deviation 42.1 fL (36.4-46.3); Red Blood Count 4.74 M/uL (4.20-5.40); White Blood Count 6.46 K/ul (4.8-10.8)
[2022-11-21] MEDS ORDERED: LIDOCAINE 5% 1 PATCH TD SCH (09:45)
[2022-11-21] MEDS ORDERED: DICLOFENAC SOD 1% GEL 100 GM TUBE EXT PRN (09:45)
[2022-11-21] MEDS ORDERED: ACETAMINOPHEN 325 MG TAB PO PRN (09:46)
[2022-11-21 09:58] LABS: Bilirubin,Total 0.5 mg/dl (0.2-1.0); Calcium 8.6 mg/dl (8.5-10.1); Magnesium 1.6 mg/dl (1.7-2.4); Potassium 4.2 mmol/L (3.5-5.1)
[2022-11-21 10:04] LABS: Albumin Globulin Ratio 1.3 (0.9-2); Est GFR (African American) 117.3 ml/min; Est GFR (Non-African American) 101.2 ml/min; Phosphorus 3.9 mg/dl (2.5-4.9)
[2022-11-21] MEDS ORDERED: Ativan PO Alcohol Withdrawal--Active Protocol PO PRN (10:08)
[2022-11-21] MEDS ORDERED: LORazepam 1 MG TAB PO PRN ×3 (10:08)
[2022-11-21 10:38] LABS: Basophils # (auto) 0.06 K/uL (0-0.2); Basophils % (auto) 0.9 %; Eosinophils # (auto) 0.17 K/uL (0-0.50); Eosinophils % (auto) 2.6 %; Immature Granulocytes # (auto) 0.01 K/uL (0.01-0.20); Immature Granulocytes % (auto) 0.2 %; Lymphocytes # (auto) 3.38 K/uL (1.2-3.4); Lymphocytes % (auto) 52.3 %; Monocytes # (auto) 0.65 K/uL (0.11-0.59); Monocytes % (auto) 10.1 %; Neutrophils # (auto) 2.19 K/uL (1.40-6.50); Neutrophils % (auto) 33.9 %
[2022-11-21] MEDS ORDERED: PANTOprazole 40 MG in SYRINGE 0 ML IV SCH (11:00)
[2022-11-21] MEDS ORDERED: LORazepam 1 MG TAB PO STA (12:14)
--- NOTE | 2022-11-21 14:43 | Discharge Summary ---
Discharge Summary Date of Service November 21, 2022 Admission HPI Per Admitting Provider Chief Complaint: AMS Primary Care Provider: Tyrell Mancini MD Pippa Schmitt is a 57-year-old female with history of restrictive lung disease secondary to pulmonary fibrosis from H1 N1 influenza infection in 2008 with traction bronchiectasis on home oxygen 2 to 3 L, alcohol abuse, history of PE in 2009 (not on anticoagulation), diabetes, hypertension, GERD, RLS, and dyslipidemia who presented to the [facility] ED on 11/20/22 via EMS for AMS. The patient was just discharged from the Hospital medicine service earlier today. She was admitted on 11/18/22 with AMS found to be caused by alcohol intoxication. She was incidentally found to be covid + at that time but remained stable on her baseline 2-3L throughout her admission. Her AMS mental status resolved with supportive care. In the ED today the patient was found to be afebrile, hemodynamically stable, and stable on her baseline 2-3L NC. Labs were significant for a CBC WNL, stable cr at 0.70, chloride of 109 otherwise stable electrolytes, glucose of 230, Ast of 76 (increased from 56 this am), ALT of 84 (increased from 72 this am), and Alk phos of 125 (increased from this am), alcohol level of 345, and still Covid 19 +. Xray of the left hand was read as "Soft tissue swelling without acute osseous abnormality.". Chest xray has yet to be read officially but on my evaluation she is without pneumothorax, focal consolidations, pleural effusions, and significant pulmonary edema. Prior to admission the patient was given 5 mg IM haldol, 2 mg IV ativan, and was ordered 1L NSS bolus. At the time of the exam the patient was lying in bed, yelling that her blood sugar needs to be check. She quickly calmed down when I began speaking with her. I explained that I admitted her two days ago and we will be checking her blood sugar shortly. I asked what happened earlier today after she was discharged and she states that "I drank half a can of alcohol". She was unable to described the exact quantity and type of alcohol. She states that she has Covid and is going to . I explained that she does have Covid but that all of her vitals are stable and she's stable on her baseline O2. When asked if she had any pain she pointed to her left hand which is currently bruised. I explained that she got an xray of the hand and there are no broken bones. Admission Exam Per Admitting Provider General: In no acute distress, poor hygiene, non-toxic appearing HEENT: Normocephalic, atraumatic, no scleral icterus, pupils around round, symmetrical, and reactive to light, dry mucus, trachea midline, no thyromegaly Chest/Pulm: No respiratory distress, symmetrical chest expansion, expiratory wheezing noted throughout but no focal consolidations noted Cardiac: RRR, no murmurs noted Abdomen: Negative for ascites and bruising, normoactive bowel sounds, soft, non- tender to palpation throughout Musculoskeletal: The dorsal aspect of the left hand is bruised but without crepitus on exam, Symmetrical and without signs of other acute trauma, upper and lower extremities without tenderness to palpation, no tenderness to palpation of the head, neck, back, and pelvis Extremities: Radial, dorsalis pedis, and posterior tibial pulses are intact and symmetrical, no edema noted in the BL LE's Skin: Warm, dry, no rashes , lesions, or scars noted Neuro: Currently alert and oriented to person only, no focal defects, CN II-XII tested and intact, symmetrical strength in the BL upper and lower extremities, no tremors noted Psych: Waxing and waning mood which changes from calm to agitated and tearful, easy to redirect, cooperative during the exam Principal Dx & Hospital Course #1 = Principal Diagnosis (1) Alcohol intoxication: (2) Mood disorder: (3) COPD (chronic obstructive pulmonary disease): (4) COVID-19: (5) GERD (gastroesophageal reflux disease): (6) Restless leg syndrome: (7) Dyslipidemia: (8) Diabetes type 2, uncontrolled: (9) Hypertension: (10) Elevated LFTs: Plan Alcohol intoxication: -The patient was admitted after having been discharged 3 hours either, admitting to large volume alcohol consumption on return home -Alcohol level 345 on admission -QTc 490 -Case management and Behavioral health liaison consulted, can discharge home today with friend with guidance regarding alcohol cessation -Patient desires discharge home, which I feel is appropriate given not requiring Ativan per AWSS so far, had only had 3 hours of alcohol use before coming to hospital -Do not get the sense that patient is motivated to stop drinking at this time, but did provide support in the event that she changes her mind Mood disorder: -Does not appear to be on any medications for mood disorder, depression, or anxiety -Defer initiating medications to outpatient providers COPD (chronic obstructive pulmonary disease): -Stable on baseline 2-3L NC -Continue home breathing treatments, DuoNebs QID, incentive spirometry, flutter therapy, prn Robitussin COVID-19: -See COPD -Stable on Baseline O2, no need for treatment at this time GERD (gastroesophageal reflux disease): Resume home regimen Restless leg syndrome: -Resume home meds Dyslipidemia: -Continue statin Diabetes type 2, uncontrolled: -Hold oral medications -Monitor BSG q6h for now, goal is 110-140 -Lantus 5 units BID, Correction factor of 50 with carb ratio of 15 -Start clear liquid diet for now, can advance when less altered Hypertension: -Continue amlodipine & Lasix Elevated LFTs: -Still elevated -Likely due to alcoholism and possible due to her acute Covid infection as well - Outpatient liver US recommended Discharge Exam Constitutional WD/WN, vitals as above Respiratory normal respiratory effort, lungs clear to auscultation Cardiovascular RRR, no murmur, no edema Psychiatric A+Ox3, euthymic affect Updated Medication List Medication Instructions Recorded Confirmed Type melatonin 10 mg tablet 10 mg PO HS PRN Sleep 07/05/18 11/20/22 History multivitamin-ferrous 1 tab PO QAM 09/21/19 11/20/22 History fumarate-folic acid 18 mg-400 mcg tablet (Centrum Complete) polyethylene glycol 3350 17 17 g PO QAM 06/11/20 11/20/22 History gram/dose oral powder sodium chloride 7 % for 4 ml inhalation BID #240 mL 08/28/20 11/20/22 Rx nebulization Oxygen Home #1 ea 02/04/21 11/20/22 Rx nebulizers #1 ea 05/06/21 11/20/22 Rx fluticasone fur. 200 mcg-umeclid 1 inh inhalation QAM interstitial 06/21/21 11/20/22 History 62.5 mcg-vilant 25 mcg lung disease inhalat.powder (Trelegy Ellipta) Lactobacillus acidophilus and 30 cap PO QAM 08/04/21 11/20/22 History rhamnosus 15 billion cell capsule (Probiotic) calcium polycarbophil 625 mg 3,129 mg PO QAM 08/04/21 11/20/22 History tablet (Fiber (calcium polycarbophil)) cinnamon bark 500 mg capsule 500 mg PO QAM 08/04/21 11/20/22 History (Cinnamon) docusate sodium 100 mg capsule 300 mg PO BID 08/04/21 11/20/22 History (Colace) atorvastatin 80 mg tablet 80 mg PO QAM #90 tabs 12/19/21 11/20/22 Rx amlodipine 5 mg tablet 10 mg PO DAILY #60 tabs 04/25/22 11/20/22 Rx magnesium oxide 400 mg (241.3 mg 400 mg PO BID #60 tabs 04/25/22 11/20/22 Rx magnesium) tablet diclofenac sodium 1 % topical gel 2 g topical QID PRN Pain #100 grams 05/16/22 11/20/22 Rx aspirin 81 mg tablet,delayed 81 mg PO DAILY #90 tabs 06/17/22 11/20/22 Rx release albuterol sulfate 90 mcg/actuation 2 puff inhalation 6XD PRN Wheezing 07/22/22 11/20/22 Rx aerosol inhaler #8.5 grams fluticasone propionate 50 1 spray intranasal QAM PRN Nasal 07/22/22 11/20/22 Rx mcg/actuation nasal Congestion #16 grams spray,suspension (Flonase Allergy Relief) blood-glucose meter (Yododouch #1 ea 09/19/22 11/20/22 Rx Verio Meter) lancets 30 gauge (Eyetronics #100 ea 09/19/22 11/20/22 Rx Plus Lancet) lancing device with lancets kit #1 ea 09/19/22 11/20/22 Rx (Eyetronics Lancing Device kit) metformin 500 mg tablet,extended 1,000 mg PO BID #180 tabs 10/02/22 11/20/22 Rx release 24 hr glimepiride 4 mg tablet 4 mg PO DAILY #30 tabs 10/04/22 11/20/22 Rx guaifenesin 600 mg tablet, 600 mg PO Q12H PRN Congestion 10/04/22 11/20/22 History extended release 12 hr (Mucinex) furosemide 40 mg tablet (Lasix) 40 mg PO DAILY #3 tabs 10/20/22 11/20/22 Rx montelukast 10 mg tablet 10 mg PO HS #90 tabs 10/20/22 11/20/22 Rx (Singulair) naproxen 500 mg tablet 500 mg PO BID PRN pain #180 tabs 10/27/22 11/20/22 Rx ropinirole 1 mg tablet 1 mg PO HS #30 tabs 10/27/22 11/20/22 Rx gabapentin 300 mg capsule 300 mg PO QDL #0 caps 10/29/22 11/20/22 Rx gabapentin 600 mg tablet 600 mg PO HS #0 tabs 10/29/22 11/20/22 Rx blood sugar diagnostic (OneTouch #100 ea 10/31/22 11/20/22 Rx Verio test strips) lancets 33 gauge ([facility] ea 10/31/22 11/20/22 Rx Lancets) ondansetron 4 mg disintegrating 4 mg PO Q8H PRN nausea and 11/03/22 11/20/22 Rx tablet vomiting #30 tabs ipratropium 0.5 mg-albuterol 3 mg 3 ml inhalation Q4H PRN wheezing 11/07/22 11/20/22 Rx (2.5 mg base)/3 mL nebulization #180 mL soln pantoprazole 40 mg tablet,delayed 40 mg PO BID #180 tabs 11/10/22 11/20/22 Rx release cyclobenzaprine 10 mg tablet 10 mg PO TID PRN muscle spasm #90 11/17/22 11/20/22 Rx tabs hydrocodone 5 mg-acetaminophen 325 2 tab PO Q6H PRN pain #120 tabs 11/17/22 11/20/22 Rx mg tablet semaglutide 3 mg tablet (Rybelsus) 3 mg PO DAILY 11/18/22 11/20/22 History semaglutide 7 mg tablet (Rybelsus) 7 mg PO UD 11/18/22 11/20/22 History Hospital Stay Data Consultations 11/20/22 18:23 ED Decision to Admit Stat 11/20/22 21:04 Consult Psychiatry Routine Pending Results Patient Have Any Pending Studies at Discharge: No Discharge Instructions Given to Patient (Per Discharging Provider) You were admitted to the hospital for altered mental status. This was determined to be due to alcohol. You were given Ativan and other medications to help you feel better, and you were determined to be able to be discharged home at your request with the following recommendations: Alcohol use is suspected to have been the reason for you feeling out of sorts. It is recommended that you remain alcohol free, if you are ready to do so. If you need help with quitting, please call your family doctor or find the nearest alcohol rehab facility. If you are concerned about your wellbeing, please seek urgent medical attention, either at your family doctor's office, or, if serious, at the hospital. Total Time Total Time Spent Total Time Spent (In Minutes): 45 mins Coding Level of Care Code [id number] INP/OBS DISCH >30 MIN Diagnoses Alcohol intoxication F10.929 Mood disorder F39 COPD (chronic obstructive pulmonary disease) J44.9 COVID-19 U07.1 GERD (gastroesophageal reflux disease) K21.9 Restless leg syndrome G25.81 Dyslipidemia E78.5 Diabetes type 2, uncontrolled E11.65 Hypertension I10 Elevated LFTs R79.89
--- NOTE | 2022-11-22 09:13 | Electrocardiogram Report ---
Test Reason : Blood Pressure : / mmHG Vent. Rate : 104 BPM Atrial Rate : 104 BPM P-R Int : 150 ms QRS Dur : 082 ms QT Int : 374 ms P-R-T Axes : 038 -29 016 degrees QTc Int : 491 ms Sinus tachycardia Inferior infarct (cited on or before 06-MAY-2014) Possible Anterior infarct (cited on or before 06-MAY-2014) Abnormal ECG When compared with ECG of 18-NOV-2022 17:29, No significant change was found Confirmed by Pipo Jones ([id number]) on 11/22/2022 9:13:42 AM Referred By: REFERRED SELF Confirmed By:Pipo Jones
== END 2022-11-21 17:28 | disposition home or self-care (01) ==
LOC: 3E 16:34 → ED 16:34 → SUATTDRO 18:51 → 3E 20:54